=== PATIENT | male | born 1965 | race Caucasian/White ===

== ENCOUNTER 2017-08-29 11:31 | Inpatient (IN) | payer OTHER, MEDICARE, SELFPAY ==
[2017-08-29] VITALS (8 sets, daily range): BP systolic 129–160; BP diastolic 67–90; PULSE 61–92; RESP 15–18; TEMP 36.8–37.4; O2SAT 96–98; BMI 49.1; BMI 49.2
--- NOTE | 2017-08-29 12:19 | RAD_ITS ---
STUDY: X-RAY CHEST REASON FOR EXAM: Male, 52 years old. Chest pain TECHNIQUE: Single AP portable view of the chest. COMPARISON: None. FINDINGS: The lungs are clear and expanded. There is no demonstrated pleural abnormality. Sternal cerclage wires are present from a prior sternotomy. The heart is slightly enlarged. Normal mediastinum and jordon. Normal visualized pulmonary arteries. Normal visualized aortic arch and descending thoracic aorta. Normal visualized thoracic spine. Normal visualized ribs, clavicles, and shoulders. There is no demonstrated abnormality of the visualized soft tissue structures of the upper abdomen. RAD/Chest 1 View (Portable) IMPRESSION: Mild cardiomegaly. Postoperative changes of median sternotomy. No focal consolidation. Electronically Signed: Jakub Manrique DO at 14:03 EDT Tel , Service support ,
--- NOTE | 2017-08-29 12:20 | EKG12_ITS ---
Test Reason : LOWER EXTREMETY PAIN Blood Pressure : / mmHG Vent. Rate : 087 BPM Atrial Rate : 087 BPM P-R Int : 142 ms QRS Dur : 098 ms QT Int : 368 ms P-R-T Axes : 026 080 055 degrees QTc Int : 442 ms Normal sinus rhythm Normal ECG Confirmed by SAMANTA LIMA ([id number]), fan mail editor JUVENTINO RAY ([id number]) on 09/12/2017 5:22:54 PM Referred By: TATYANA Confirmed By:SAMANTA LIMA
--- NOTE | 2017-08-29 12:21 | VDLE_ITS ---
Reason For Study: LEG PAIN AND SWELLING Procedure LEFT Exam performed portable in ED. CFV is compressible, spontaneous, phasic, A preliminary report was called and/or faxed competent, and demonstrates normal to ED nurse. augmentation. FV is compressible, spontaneous, phasic, competent and demonstrates normal augmentation. POP V is compressible, spontaneous, phasic, competent and demonstrates normal augmentation. T/P Trunk is compressible. PTV is compressible. LT PerV is compressible. GSV harvested. Interpretation Summary Deep veins of the left lower extremity are patent and compressible segmentally. There is no evidence of left lower extremity deep vein thrombosis. Valvular competence appears intact within the proximal deep venous system on the left . The left greater saphenous vein is absent, having been previously harvested. Ordering Physician: Abbi Nichols Referring Physician: Betty Farrell Performed By: Fanny Vallejo RVT
--- NOTE | 2017-08-29 12:25 | NURSING ---
NO OLD EKGS
[2017-08-29 13:09] LABS: Absolute Lymphocyte Count 1.17 X10^3/ul (0.83-4.51); Absolute Neutrophil Count 14.5 X10^3/uL (2.0-7.7); Basophil# 0.03 X10^3/uL; Basophil% 0.2 % (0-1); Hematocrit 34.5 % (40-54); Hemoglobin 11.4 g/dl (13.0-16.5); Lymphocyte # 1.17 X10^3/ul (4.0); Lymphocyte % 6.9 % (19-41); Mean Corpuscular Hgb 26.1 pg (27.0-32.0); Mean Corpuscular Volume 78.9 fL (80-94); Monocyte# 0.96 X10^3/uL; Monocyte% 5.7 % (0-10); Neutrophil # 14.49 X10^3/uL (2.7-7.7); Platelet Count 217 K/mm3 (150-450); RBC Distribution Width CV 14.9 % (11.6-14.6); RBC Distribution Width SD 42.4 fl (35.1-43.9); Red Blood Count 4.37 M/mm3 (4.6-6.2); White Blood Count 16.9 K/mm3 (4.4-11.0)
[2017-08-29 13:10] LABS: POSITIVE COUNT NO; POSITIVE DIFFERENTIAL NO; POSITIVE MORPHOLOGY NO
[2017-08-29 13:17] LABS: International Normalized Ratio 1.3; Prothrombin Time (Protime)PT. 15.8 SECONDS (11.7-14.9)
[2017-08-29 13:18] LABS: Partial Thromboplast Time 36.5 Seconds (24.1-36.2)
[2017-08-29 13:33] LABS: Lactic Acid 1.9 mmol/L (0.4-2.0)
[2017-08-29 13:35] LABS: ALB/GLOB Ratio 0.6 RATIO (0.9-2.4); AST(SGOT) 52 U/L (15-37); Alanine Aminotransfer ALT/SGPT 37 U/L (16-61); Albumin, Serum 2.9 g/dL (3.2-5.0); Alkaline Phosphatase 66 U/L (45-117); Anion Gap 13 (5-15); BUN 40 mg/dL (7-18); BUN/Creat Ratio 15.8 RATIO (10-20); Calcium,Total 8.3 mg/dL (8.5-10.1); Chloride 100 mmol/L (98-107); Creatinine, Serum 2.53 mg/dL (0.70-1.30); EST Glomerular Filtration Rate 28 mL/min (>60); Est Glom Filt Rate - Afr Amer 34 mL/min (>60); Estimated Creatinine Clearance 31.21 ml/min; Glucose 203 mg/dL (74-106); Potassium 4.4 mmol/L (3.5-5.1); Protein, Total 7.9 g/dL (6.4-8.2); Sodium Level 128 mmol/L (136-145)
--- NOTE | 2017-08-29 14:23 | NURSING ---
DR TONY FOR DR TYLER
--- NOTE | 2017-08-29 14:39 | NURSING ---
320 SEPSIS SECONDARY TO CELLULITIS PAINTSIL
--- NOTE | 2017-08-29 14:43 | US_ITS ---
STUDY: RENAL ULTRASOUND - COMPLETE REASON FOR EXAM: Male, 52 years old. Acute renal failure TECHNIQUE: Ultrasound evaluation of the kidneys was performed with real-time and static barakat-scale imaging. COMPARISON: None. FINDINGS: RIGHT KIDNEY: Normal location of the right kidney, which is normal in size. The right kidney measures 12.1 x 5.7 x 7.0 cm. There is a normal cortex of the right kidney. The renal cortex measures 2.1 cm. There is no right renal mass or cyst. There is a punctate echogenicity in the right kidney image #7 suggesting possible renal stone. There is a rounded appearing isoechoic masslike structure in the mid pole suggesting probable dromedary hump. This is less are apparent on the left side. There is no right hydronephrosis. DISTAL RIGHT URETER: There is non-visualization of the distal right ureter. There is no demonstrated right ureterovesical junction calculus. There is a visualized right ureteral jet. LEFT KIDNEY: Normal location of the left kidney, which is normal in size. The left kidney measures 11.6 x 5.6 x 6.0 cm. There is a normal cortex of the left kidney. The renal cortex measures 2.2 cm. There is no left renal mass or cyst. There are no left renal calculi. There is no left hydronephrosis. DISTAL LEFT URETER: There is non-visualization of the distal left ureter. There is no demonstrated left ureterovesical junction calculus. There is a visualized left ureteral jet. BLADDER: The distended urinary bladder has a volume of 312.6 ml. There is a normal wall thickness of the distended urinary bladder. There is no demonstrated mass within the urinary bladder. There are no demonstrated bladder calculi. US/Kidney and Bladder IMPRESSION: No evidence of hydronephrosis. Punctate stone right kidney. Probable Dromedary hump versus 3.7 cm isoechoic mass right kidney recommend consideration for follow-up study and/or comparison to a prior study if possible. Electronically Signed: Destini Fisher MD at 23:44 EDT Tel , Service support ,
--- NOTE | 2017-08-29 15:36 | PCM.HP.STD ---
Problem List (1) Cellulitis Status: Acute Qualifiers: Site of cellulitis: extremity Site of cellulitis of extremity: lower extremity Laterality: left Qualified Code(s): L03.116 - Cellulitis of left lower limb (2) Severe sepsis Status: Acute (3) Hyperlipidemia Status: Chronic Qualifiers: Hyperlipidemia type: unspecified Qualified Code(s): E78.5 - Hyperlipidemia, unspecified (4) Benign essential hypertension Status: Chronic (5) Morbid obesity Status: Chronic (6) Lymphedema of left leg Status: Chronic (7) GERD (gastroesophageal reflux disease) Status: Chronic Qualifiers: Esophagitis presence: esophagitis presence not specified Qualified Code(s): K21.9 - Gastro-esophageal reflux disease without esophagitis History of Present Illness Date of Admission: 08/29/17 Chief Complaint: Left lower extremity swelling and redness - 3 days The patient is a 52 year old M with past medical history of type II DM, morbid obesity, chronic leg edema, last admitted in 2016, history of MRSA of groin with a similar presentation of left lower extremity redness and swelling. Patient was in his usual state of health until 3 days ago when he noticed that the left lower extremity was swollen and painful, associated with some redness that seems to be spreading to below the knee. Patient admits to chills and feeling fatigued. Admits to dizziness but no palpitations or chest pain. Denies any fever. Patient is unaware that he has chronic kidney disease in 2016, has not had any hospitalizations since 2016. He states he is a fairly healthy patient. Denied any cuts on his legs or insect bites or bruises. Vitals in the ED show a temperature of 90 9.3F, heart rate of 91, blood pressure 160/90, SPO2 was 98% on room air. Admitting blood pressure RBC count of 16.9, hemoglobin 11.4, platelets of 217, sodium 128, potassium 4.4, chloride 100, bicarbonate 15, anion gap of 13, BUN 40 creatinine is 2.53, previous creatinine was 1.29 in 2016. Past Medical History Past Medical History (Chronic Problems): Chronic Problems Diabetes mellitus out of control (Chronic) Hyperlipidemia (Chronic) Benign essential hypertension (Chronic) Morbid obesity (Chronic) Coronary artery arteriosclerosis (Chronic) Lymphedema of left leg (Chronic) Left leg swelling (Chronic) Prostatism (Chronic) GERD (gastroesophageal reflux disease) (Chronic) Chronic venous insufficiency (Chronic) Edema of left lower extremity (Chronic) Allergies pravastatin sodium [From Pravachol] Adverse Reaction (Intermediate, Verified 08/29/17 11:32) Other ACHY MUSCLES Home Medications: Ambulatory Orders Medication Instructions Recorded Amlodipine [Norvasc] 10 mg PO DAILY 10/16/15 Aspirin [Aspirin, Baby] 81 mg PO DAILY@0800 10/16/15 Atorvastatin Calcium [Lipitor] 40 mg PO DAILY 10/16/15 Lisinopril [Zestril] 40 mg PO DAILY 10/16/15 Metformin HCl [Glucophage] 1,000 mg PO BIDCM 10/16/15 Carvedilol [Coreg] 25 mg PO DAILY 08/29/17 Empagliflozin [Jardiance] 10 mg PO DAILY 08/29/17 Hydrochlorothiazide [Hctz] 25 mg PO DAILY 08/29/17 Insulin Glargine,Hum.rec.anlog 150 unit SQ DAILY 08/29/17 [Toujeo Solostar] Insulin Lispro [Humalog Tyree 50 unit SQ TIDCM 08/29/17 Kwikpen] Meloxicam [Mobic] 15 mg PO DAILY PRN 08/29/17 Omeprazole [Prilosec] 20 mg PO DAILY 08/29/17 Spironolactone [Aldactone] 100 mg PO DAILY 08/29/17 Surgical History: coronary bypass surgery, - - Patient underwent coronary stent placement in 2008. He underwent coronary revascularization in March 2014, at which time 5 coronary bypass grafts were performed. Patient has a history of right groin wound debridement for MRSA. Psychiatric History: No pertinent psych hx Lives: Spouse/ Significant Other Smoking Status: Never smoker Tobacco Use: Non-smoker Alcohol: None Drugs: None - *Family History Maternal History Items: Seizures, - - Brain cancer Paternal History Items: No pertinent history Review of Systems Constitutional: Reports: Anorexia, Chills, Weakness. Denies: Fever, Weight Change Eyes: Denies: Blurred vision, Cataracts, Conjunctivae Inflammation, Pain, Redness HEENT: Denies: Difficulty Hearing, Difficulty Swallowing, Head Aches, Hearing Changes, Sinus Congestion, Sinus Drainage Cardiovascular: Denies: Chest Pain, Claudication, Orthopnea, Palpitations, Paroxysmal Noc. Dyspnea Respiratory: Denies: Cough, Hemoptysis, Pleuritic Pain, Shortness of breath at rest, Shortness of breath upon exertion, Sputum production Gastrointestinal: Denies: Abdominal Pain, Hematemesis, Hematochezia, Nausea, Vomiting Genitourinary: Denies: Dysuria, Frequency, Incontinence Musculoskeletal: Reports: Leg Pain. Denies: Joint Pain, Joint stiffness, Joint swelling, Joint Tenderness Skin: Reports: Skin Changes - redness and swelling of lower extremity with differential warmth. Some chronic tinea pedis changes in between the 4th and 5th toes.. Denies: Wounds Neurological: Denies: Difficulty swallowing, Focal weakness, Numbness, Tingling Psychiatric: Denies: Anxiety, Depression, Homicidal Ideations, Suicidal Ideations Endocrine: Denies: Change in Body Habitus, Heat/ Cold Intolerance Hematologic/ Lymphatic: Denies: Adenopathy, Anemia, Easy Bruising, Easy Bleeding VTE Information - Inpt Only VTE Present on Admission: No VTE Pharm Prophylaxis ordered?: Yes Patient Problems: Active and Suspected Problems Cellulitis (Acute) Severe sepsis (Acute) - Physical Exam General: Alert, Oriented x3, Cooperative, No apparent distress, - - obese HEENT: Atraumatic, PERRLA, EOMI, Normocephalic Oral: Moist Mucosa Neck: Supple Lungs: Clear to auscultation, Normal air movement Cardiovascular: Regular rate, Regular Rhythm, Normal S1, Normal S2, No murmurs Abdomen: Bowel Sounds Present, Soft, Non Tender, Non-Distended, No Hepato-splenomegaly Extremities: No edema Skin: No rashes Musculoskeletal: No Tenderness to Palpation of Joints or Extremities Lymphatic: No Cervical, Supraclavicular, or Inguinal Adenopathy Neurological: Cranial nerves II-XII grossly intact, Neuro grossly intact Psych/Mental Status: Normal Affect, Appropriate Vital Signs Temp Pulse Resp BP Pulse Ox 99.3 F H 61 15 135/77 H 98 08/29/17 11:32 08/29/17 14:36 08/29/17 14:36 08/29/17 14:36 08/29/17 14:36 Assessment/Plan Active and Suspected Problems Cellulitis (Acute) Severe sepsis (Acute) 52 year old M with past medical history of type II DM, morbid obesity, chronic leg edema, last admitted in 2016, history of MRSA of groin with a similar presentation of left lower extremity redness and swelling. 1.Severe sepsis secondary to left lower extremity cellulitis (HR>90, WBC 16.9, evidence of TALITA), in a known diabetic, History of MRSA, morbidly obese patient with history of chronic venous insufficiency. DVT ruled out with a Doppler ultrasound in the ED. Plan: Admit to Medsurg floor, IV antibiotics -Cipro and Flagyl, IV fluids, repeat CBCD, pharmacy to help dose and monitor vancomycin, ID consult 2. TALITA on CKD stage 3, Admitting Cr is 2.53, previous Cr 1.29, will start on IV fluids, renal ultrasound, urine sodium, urine creatinine, nephrology consult, would hold metformin, spironolactone, lisinopril, hydrochlorothiazide and OxyContin. 3. Hyponatremia, likely related to #2, repeat BMP in am 4. Non-gap metabolic acidosis, likely secondary to #2, continue with IV fluids, labs in a.m. 5. Type II DM, insulin, continue home medications, hold metformin, Jardiance and continue with insulin with Accu-Cheks and low dose insulin sliding scale. 6. Hypertension, fairly uncontrolled in the ED, secondary to pain, subsequent blood pressure readings are controlled, to new on amlodipine, carvedilol. Lisinopril, Aldactone, hydrochlorothiazide on hold. Will Add hydralazine as needed for systolic blood pressure more than 160 7. CAD s/p CABG, stable, on aspirin, statin, beta-william, lisinopril, Aldactone 8. DVT prophylaxis with heparin subcu Code Visit Inpatient E&M: 64161 Init Hosp L3
[2017-08-29] MEDS: 0.9% Normal Saline 1,000 ML 100 ML IV (15:54)
--- NOTE | 2017-08-29 15:59 | ED.VISSUMM ---
- ER Visit Summary Date of Service: 08/29/17 Chief Complaint: Left leg pain and swelling History of Present Illness: The patient is a 52 M who presents for 3 days of pain and swelling to the left lower leg. It is gradually worsened. Patient has associated sweats but no measured fever. He has malaise, fatigue and feels thirsty. He has a history of prior cellulitis that required hospitalization and IV antibiotics with ID consult. 3 of diabetes, hypertension, coronary artery disease, history of chronic dyspnea. Denies CHF or COPD history. No renal disease. Is not on any blood thinners. Physical Examination: Vital signs: afebrile, hemodynamically stable, no hypoxia on room air General: well nourished, well developed, in no distress Skin: warm, dry, no pallor, erythema and warmth distal to the left knee on the entire lower leg radiating into the foot HEENT: normocephalic and atraumatic; PERRL, EOMI, moist mucous membranes Cardiovascular: regular rate and rhythm without murmurs, no peripheral edema, 2+ pulses all distal extremities Respiratory: No increased work of breathing, lungs are clear to auscultation bilaterally, no rales, rhonchi or wheezing Abdominal: Abdomen is soft, nontender with normoactive bowel sounds, no guarding or rebound, no masses MSK: Moves all extremities, no deformities, normal strength Neuro: Awake and alert, oriented ?4. No facial droop, sensation and motor function intact and symmetric Test Results: Abnormal Lab Results 08/29/17 08/29/17 08/29/17 13:00 13:00 13:00 WBC 16.9 H RBC 4.37 L Hgb 11.4 L Hct 34.5 L MCV 78.9 L MCH 26.1 L MCHC 33.0 RDW 14.9 H RDW Differential 42.4 Plt Count 217 MPV 10.0 Immature Gran % (Auto) 1.200 H Neut % (Auto) 86.0 H Lymph % (Auto) 6.9 L [place] % (Auto) 5.7 Eos % (Auto) 0.0 Baso % (Auto) 0.2 Absolute Neuts (auto) 14.5 H Absolute Lymphs (auto) 1.17 Total Counted Not Reportable PT 15.8 H INR 1.3 APTT 36.5 H Sodium 128 L Potassium 4.4 Chloride 100 Carbon Dioxide 15.0 L Anion Gap 13 BUN 40 H Creatinine 2.53 H Estim Creat Clear Calc 31.21 Est GFR (MDRD) Af Amer 34 L Est GFR (MDRD) Non-Af 28 L BUN/Creatinine Ratio 15.8 Glucose 203 H Lactic Acid Calcium 8.3 L Total Bilirubin 0.50 AST 52 H ALT 37 Alkaline Phosphatase 66 Troponin I < 0.015 B-Natriuretic Peptide Total Protein 7.9 Albumin 2.9 L Globulin 5.0 H Albumin/Globulin Ratio 0.6 L 08/29/17 08/29/17 13:00 13:00 WBC RBC Hgb Hct MCV MCH MCHC RDW RDW Differential Plt Count MPV Immature Gran % (Auto) Neut % (Auto) Lymph % (Auto) [place] % (Auto) Eos % (Auto) Baso % (Auto) Absolute Neuts (auto) Absolute Lymphs (auto) Total Counted PT INR APTT Sodium Potassium Chloride Carbon Dioxide Anion Gap BUN Creatinine Estim Creat Clear Calc Est GFR (MDRD) Af Amer Est GFR (MDRD) Non-Af BUN/Creatinine Ratio Glucose Lactic Acid 1.9 Calcium Total Bilirubin AST ALT Alkaline Phosphatase Troponin I B-Natriuretic Peptide 73.0 Total Protein Albumin Globulin Albumin/Globulin Ratio Clinical Impression(s) from Imaging Studies Chest X-Ray 08/29/17 12:19 IMPRESSION: Mild cardiomegaly. Postoperative changes of median sternotomy. No focal consolidation. Electronically Signed: Jakub Manrique DO at 14:03 EDT Tel , Service support , Emergency Department Course and Treatment: Patient presents with concerning exam for cellulitis below the knee of the left leg. Patient has exquisite tenderness with erythema, swelling and warmth. Ultrasound performed to rule out DVT. Given patient's significant cardiac history and his worsening dyspnea for the last 2 weeks, EKG and chest x-ray were also performed. EKG showed sinus rhythm without ischemia or ectopy. Chest x-ray showed no pulmonary edema. Labs showed leukocytosis of 16.9. BMP remarkable for mild hyponatremia at 128, and chart review shows patient normally has a low sodium but not to this extent. Elevated creatinine at his baseline. Hyperglycemic at 203. Troponin negative. Lactate within normal limits at 1.9. Given patient's multiple medical comorbidities and cellulitis of the entire left lower leg, and given history of complicated cellulitis in the past, patient would benefit from admission for IV antibiotics. Was started on vancomycin. He was discussed with the hospitalist and admitted for further management. Treatment Plan: [] Disposition: [] Impression: Lower leg cellulitis, chronic renal disease, hyponatremia This note was generated with [employer] dictation software. It may contain incorrect words, spelling, and punctuation that were not noted in review of the chart prior to signing ED Disposition - Plan for ED Patient: Disposition: Acute Care Hospital [facility] Chief Complaint: Lower Extremity Injury
--- NOTE | 2017-08-29 16:03 | ED.DCSUM_ITS ---
- ER Visit Summary Date of Service: 08/29/17 Chief Complaint: Left leg pain and swelling History of Present Illness: The patient is a 52 M who presents for 3 days of pain and swelling to the left lower leg. It is gradually worsened. Patient has associated sweats but no measured fever. He has malaise, fatigue and feels thirsty. He has a history of prior cellulitis that required hospitalization and IV antibiotics with ID consult. 3 of diabetes, hypertension, coronary artery disease, history of chronic dyspnea. Denies CHF or COPD history. No renal disease. Is not on any blood thinners. Physical Examination: Vital signs: afebrile, hemodynamically stable, no hypoxia on room air General: well nourished, well developed, in no distress Skin: warm, dry, no pallor, erythema and warmth distal to the left knee on the entire lower leg radiating into the foot HEENT: normocephalic and atraumatic; PERRL, EOMI, moist mucous membranes Cardiovascular: regular rate and rhythm without murmurs, no peripheral edema, 2 + pulses all distal extremities Respiratory: No increased work of breathing, lungs are clear to auscultation bilaterally, no rales, rhonchi or wheezing Abdominal: Abdomen is soft, nontender with normoactive bowel sounds, no guarding or rebound, no masses MSK: Moves all extremities, no deformities, normal strength Neuro: Awake and alert, oriented ?4. No facial droop, sensation and motor function intact and symmetric Test Results: Abnormal Lab Results 08/29/17 08/29/17 08/29/17 13:00 13:00 13:00 WBC 16.9 H RBC 4.37 L Hgb 11.4 L Hct 34.5 L MCV 78.9 L MCH 26.1 L MCHC 33.0 RDW 14.9 H RDW Differential 42.4 Plt Count 217 MPV 10.0 Immature Gran % (Auto) 1.200 H Neut % (Auto) 86.0 H Lymph % (Auto) 6.9 L [place] % (Auto) 5.7 Eos % (Auto) 0.0 Baso % (Auto) 0.2 Absolute Neuts (auto) 14.5 H Absolute Lymphs (auto) 1.17 Total Counted Not Reportable PT 15.8 H INR 1.3 APTT 36.5 H Sodium 128 L Potassium 4.4 Chloride 100 Carbon Dioxide 15.0 L Anion Gap 13 BUN 40 H Creatinine 2.53 H Estim Creat Clear Calc 31.21 Est GFR (MDRD) Af Amer 34 L Est GFR (MDRD) Non-Af 28 L BUN/Creatinine Ratio 15.8 Glucose 203 H Lactic Acid Calcium 8.3 L Total Bilirubin 0.50 AST 52 H ALT 37 Alkaline Phosphatase 66 Troponin I < 0.015 B-Natriuretic Peptide Total Protein 7.9 Albumin 2.9 L Globulin 5.0 H Albumin/Globulin Ratio 0.6 L 08/29/17 08/29/17 13:00 13:00 WBC RBC Hgb Hct MCV MCH MCHC RDW RDW Differential Plt Count MPV Immature Gran % (Auto) Neut % (Auto) Lymph % (Auto) [place] % (Auto) Eos % (Auto) Baso % (Auto) Absolute Neuts (auto) Absolute Lymphs (auto) Total Counted PT INR APTT Sodium Potassium Chloride Carbon Dioxide Anion Gap BUN Creatinine Estim Creat Clear Calc Est GFR (MDRD) Af Amer Est GFR (MDRD) Non-Af BUN/Creatinine Ratio Glucose Lactic Acid 1.9 Calcium Total Bilirubin AST ALT Alkaline Phosphatase Troponin I B-Natriuretic Peptide 73.0 Total Protein Albumin Globulin Albumin/Globulin Ratio Clinical Impression(s) from Imaging Studies Chest X-Ray 08/29/17 12:19 IMPRESSION: Mild cardiomegaly. Postoperative changes of median sternotomy. No focal consolidation. Electronically Signed: Jakub Manrique DO at 14:03 EDT Tel , Service support , Emergency Department Course and Treatment: Patient presents with concerning exam for cellulitis below the knee of the left leg. Patient has exquisite tenderness with erythema, swelling and warmth. Ultrasound performed to rule out DVT. Given patient's significant cardiac history and his worsening dyspnea for the last 2 weeks, EKG and chest x-ray were also performed. EKG showed sinus rhythm without ischemia or ectopy. Chest x-ray showed no pulmonary edema. Labs showed leukocytosis of 16.9. BMP remarkable for mild hyponatremia at 128, and chart review shows patient normally has a low sodium but not to this extent. Elevated creatinine at his baseline. Hyperglycemic at 203. Troponin negative. Lactate within normal limits at 1.9. Given patient's multiple medical comorbidities and cellulitis of the entire left lower leg, and given history of complicated cellulitis in the past, patient would benefit from admission for IV antibiotics. Was started on vancomycin. He was discussed with the hospitalist and admitted for further management. Treatment Plan: [] Disposition: [] Impression: Lower leg cellulitis, chronic renal disease, hyponatremia This note was generated with [employer] dictation software. It may contain incorrect words, spelling, and punctuation that were not noted in review of the chart prior to signing ED Disposition - Plan for ED Patient: Disposition: Acute Care Hospital [facility] Chief Complaint: Lower Extremity Injury
[2017-08-29] MEDS: oxyCODONE 5 MG Tablet PO ×2 (16:15→20:22)
[2017-08-29 16:25] LABS: Bedside Glucose 189 mg/dL (70-110)
--- NOTE | 2017-08-29 19:13 | PCM.RX.CS ---
Consult Pharmacy has been consulted to manage selected antiobiotic: Vancomycin Type of Consult: New start Suspected Infection: Sepsis, Skin/Soft tissue Prior Doses of Antibiotics Received/Current Regimen: Vancomycin 2000mg x1 in ER Labs: Sodium 128 mmol/L (136-145) L 08/29/17 13:00 Potassium 4.4 mmol/L (3.5-5.1) 08/29/17 13:00 Chloride 100 mmol/L (98-107) 08/29/17 13:00 Carbon Dioxide 15.0 mmol/L (21.0-32.0) L 08/29/17 13:00 Anion Gap 13 (5-15) 08/29/17 13:00 BUN 40 mg/dL (7-18) H 08/29/17 13:00 Creatinine 2.53 mg/dL (0.70-1.30) H 08/29/17 13:00 Est GFR (MDRD) Af Amer 34 mL/min (>60) L 08/29/17 13:00 Est GFR (MDRD) Non-Af 28 mL/min (>60) L 08/29/17 13:00 BUN/Creatinine Ratio 15.8 RATIO (10-20) 08/29/17 13:00 Glucose 203 mg/dL (74-106) H 08/29/17 13:00 Microbiology: n/a Weight used for dosin kg Estimated Creatinine Clearance: 31ml/min Goal Trough: 10-15 mcg/mL Pharmacy Plan for Drug Dosing: Start Vancomycin 1250mg every 24 hours on 08/30/17 at 1500. Will draw trough before 3rd total dose. Pharmacy Service will continue to monitor and adjust dosing as required. Follow-Up Labs: Trough Vancomycin - 08/31/17 @ 1430 Labs to be done on [date and time ordered]: trough level on 08/31/17 at 1430
[2017-08-29] MEDS: Acetaminophen 325 MG Tablet 650 MG PO (20:22)
--- NOTE | 2017-08-29 20:26 | NURSING ---
This RN offered if patient wanted to take a shower, patient stated maybe in the morning.
[2017-08-29 20:27] LABS: Bacteria 0 SEEN /hpf (None Seen); Mucous, Urine 0 SEEN /hpf (<or=2+); Squamous Epithelial Cells - UA 0 SEEN /hpf (0-5)
[2017-08-29 20:42] LABS: Color, Urine Yellow (Yellow); Glucose, Dipstick 1000 mg/dl (Normal); Ketone-Dipstick 5 mg/dl (Negative); Leukocyte Esterase-Dipstick Negative /ul (Negative); Nitrite-Dipstick Negative (Negative); Occult Blood-Urine 150 /ul (Negative); Protein-Dipstick 500 mg/dl (Negative); Specific Gravity, Urine 1.015 (1.002-1.030); Urine Bilirubin Dipstick Negative (Negative); Urine Clarity Clear (Clear); Urine Urobilinogen Normal (Normal)
[2017-08-29 20:50] LABS: Red Blood Cells-Urine 0-5 SEEN /hpf (0-5); White Blood Cells 0-5 SEEN /hpf (0-5)
[2017-08-29 20:51] LABS: Urine Sodium 46 mmol/L (Not Establ.)
[2017-08-29 21:18] LABS: Probe Check PASS
[2017-08-29 21:19] LABS: M R Staph aureus DNA By PCR POSITIVE (Negative)
[2017-08-29] MEDS: Heparin Injection (Vial) 5,000 UNIT/ML VIAL 5000 UNIT SC (22:18)
[2017-08-29] MEDS: Piperacil/Tazobactam 3.375 GM/50 ML ML IV (22:18)
[2017-08-29] MEDS: Carvedilol 25 MG Tablet PO (22:19)
[2017-08-29] MEDS: Insulin Lispro 100 UNIT/ML INSULN.PEN SQ (22:20)
[2017-08-29 22:31] LABS: Bedside Glucose 178 mg/dL (70-110)
[2017-08-30] VITALS (11 sets, daily range): BP systolic 101–150; BP diastolic 52–81; PULSE 64–75; RESP 16–18; TEMP 36.8–37.6; O2SAT 96–100
[2017-08-30] MEDS: 0.9% Normal Saline 1,000 ML 100 ML IV ×2 (03:36→14:12)
[2017-08-30] MEDS: Piperacil/Tazobactam 3.375 GM/50 ML ML IV (05:31)
[2017-08-30 06:12] LABS: Absolute Lymphocyte Count 0.86 X10^3/ul (0.83-4.51); Absolute Neutrophil Count 10.1 X10^3/uL (2.0-7.7); Basophil# 0.02 X10^3/uL; Basophil% 0.2 % (0-1); Eosinophil# 0.07 X10^3/uL; Eosinophils% 0.6 % (0-5); Hematocrit 32.1 % (40-54); Hemoglobin 10.5 g/dl (13.0-16.5); Lymphocyte # 0.86 X10^3/ul (4.0); Lymphocyte % 7.2 % (19-41); Mean Corp Hgb Conc 32.7 g/gl (32-36); Mean Corpuscular Hgb 26.1 pg (27.0-32.0); Mean Corpuscular Volume 79.9 fL (80-94); Mean Platelet Vol. 10.5 fl (6.2-12.0); Monocyte# 0.77 X10^3/uL; Monocyte% 6.5 % (0-10); Neutrophil # 10.11 X10^3/uL (2.7-7.7); Neutrophil % 85.2 % (47-70); Platelet Count 191 K/mm3 (150-450); RBC Distribution Width CV 14.9 % (11.6-14.6); RBC Distribution Width SD 43.1 fl (35.1-43.9); Red Blood Count 4.02 M/mm3 (4.6-6.2); White Blood Count 11.9 K/mm3 (4.4-11.0)
[2017-08-30 06:14] LABS: POSITIVE COUNT NO; POSITIVE DIFFERENTIAL NO; POSITIVE MORPHOLOGY NO
[2017-08-30 06:39] LABS: Anion Gap 13 (5-15); BUN 47 mg/dL (7-18); BUN/Creat Ratio 18.4 RATIO (10-20); Calcium,Total 8.4 mg/dL (8.5-10.1); Chloride 104 mmol/L (98-107); Creatinine, Serum 2.56 mg/dL (0.70-1.30); EST Glomerular Filtration Rate 28 mL/min (>60); Est Glom Filt Rate - Afr Amer 34 mL/min (>60); Estimated Creatinine Clearance 30.84 ml/min; Glucose 221 mg/dL (74-106); Potassium 4.7 mmol/L (3.5-5.1); Sodium Level 132 mmol/L (136-145)
--- NOTE | 2017-08-30 08:05 | PCM.CONS.R ---
Consultation - Renal 08/30/17 PCP/ Referring MD: Requesting physician: Dr Guerrier Primary care physician: Betty Farrell Reason for Consultation:: TALITA - History of Present Illness History of Present Illness: The patient is a 52 year old obese M with past medical history for type II DM, HTN, HPL, MELODIE, noncompliance with CPAP and diabetes with elevated A1C of 10.8 on 05/30/17 admitted for left lower extremity redness and swelling for 3 days. He complains of chills, fatigue. He noticed left leg redness while camping out on Tuesday progressively worse by Tuesday. States was wearing shorts. Denied going barefoot. Denies palpitations or chest pain. Denied any injury to his leg or insect bites or bruises. Hx left lower extremity cellulitis in the past with MRSA. He denied history of DVT. He has CAD status post CABG 4 years ago with veins harvested from his left leg. Creatinine in October 2015 was 1.29 in hospital records. Creatinine from [facility] records was 1.48 on 05/30/17 and February 2017, 1.2 in September 2016. Creatinine on admit was 2.53. He is on prinivil, aldactone, Jardiance and Glucophage along with insulin at home. He has a history of NSAID use with Meloxicam and ibuprofen for back pain and leg pain but not on a regular basis. Denied any urinary complaints. States sugars are in the mid 200s in the morning which is good for him according to the patient. - Allergies Allergies: Allergies pravastatin sodium [From Pravachol] Adverse Reaction (Intermediate, Verified 08/29/17 11:32) Other ACHY MUSCLES - Current Medications Current Medications: Current Medications Acetaminophen (Tylenol) 650 mg PO Q6H PRN PRN PRN Reason: Mild Pain (scale 0-3)/T>100.7 Last Admin: 08/29/17 20:22 Dose: 650 mg Amlodipine Besylate (Norvasc) 10 mg PO DAILY [facility] Aspirin (Aspirin, Baby) 81 mg PO DAILY@0800 [facility] Atorvastatin Calcium (Lipitor) 40 mg PO DAILY [facility] Bisacodyl (Dulcolax) 5 mg PO DAILY PRN PRN PRN Reason: Constipation Carvedilol (Coreg) 25 mg PO BID [facility] Last Admin: 08/29/17 22:19 Dose: 25 mg Dextrose (D50w Syringe) 0 gm IV X1 PRN; Protocol PRN Reason: Hypoglycemia Glucagon () 1 mg IM .X1 PRN PRN Reason: Hypoglycemia Heparin Sodium (Porcine) (Heparin Na) 5,000 unit SC Q12 [facility] Last Admin: 08/29/17 22:18 Dose: 5,000 u Hydralazine HCl (Apresoline Iv) 5 mg IV Q6H PRN PRN PRN Reason: BLOOD PRESSURE Sodium Chloride () 1,000 mls @ 100 mls/hr IV .Q10H [facility] Last Admin: 08/30/17 03:36 Dose: 100 mls/hr Piperacillin Sod/Tazobactam Sod (Zosyn) 3.375 gm in 50 mls @ 12.5 mls/hr IV Q8 [facility] Last Admin: 08/30/17 05:31 Dose: 12.5 mls/hr Vancomycin HCl 1,250 mg/ (Sodium Chloride) 275 mls @ 183.333 mls/hr IV Q24H [facility] Insulin Detemir (Levemir (Bkc)) 150 units SC DAILY [facility] Insulin Human Lispro (Humalog Kwikpen (Bkc)) 50 unit SC TIDCM [facility] Last Admin: 08/29/17 18:42 Dose: Not Given Insulin Human Lispro (Humalog Kwikpen (Bkc)) 0 unit SQ ACHS [facility] PRN Reason: Protocol Last Admin: 08/29/17 22:20 Dose: 1 u Magnesium Hydroxide (Milk Of Magnesia) 30 ml PO DAILY PRN PRN PRN Reason: Constipation Morphine Sulfate () 1 - 2 mg IV Q4H PRN PRN PRN Reason: Moderate Pain (pain scale 4-5) Ondansetron HCl (Zofran) 4 mg IV Q8H PRN PRN PRN Reason: Nausea Oxycodone HCl (Oxyir) 5 mg PO Q4H PRN PRN PRN Reason: Moderate Pain (pain scale 4-5) Last Admin: 08/29/17 20:22 Dose: 5 mg Pantoprazole Sodium (Protonix) 20 mg PO DAILY [facility] Psyllium Hydrophilic Mucilloid (Metamucil) 1 packet PO DAILY PRN PRN PRN Reason: CONSTIPATION Sodium Chloride () 5 - 30 ml IV UD PRN PRN Reason: SALINE FLUSH - Past Medical History Past Medical History (Chronic Problems): Chronic Problems Diabetes mellitus out of control (Chronic) Hyperlipidemia (Chronic) Benign essential hypertension (Chronic) Morbid obesity (Chronic) Coronary artery arteriosclerosis (Chronic) Lymphedema of left leg (Chronic) Left leg swelling (Chronic) Prostatism (Chronic) GERD (gastroesophageal reflux disease) (Chronic) Chronic venous insufficiency (Chronic) Edema of left lower extremity (Chronic) - Past Surgical History Surgical History: coronary bypass surgery, - - Patient underwent coronary stent placement in 2008. He underwent coronary revascularization in March 2014, at which time 5 coronary bypass grafts were performed. Patient has a history of right groin wound debridement for MRSA. - Social History Smoking Status: Never smoker Alcohol: None Drugs: None - Family History Paternal History Items: Hypertension Maternal History Items: Cancer - brain, Seizures Review of Systems Constitutional: Reports: Chills, Weakness. Denies: Anorexia, Fever Eyes: Denies: Blurred vision HEENT: Denies: Head Aches Cardiovascular: Reports: Edema - Redness and swelling in the left lower extremity. Denies: Chest Pain Patient Problems: Active and Suspected Problems Cellulitis (Acute) Severe sepsis (Acute) - Physical Exam General: Alert, Oriented x3, Cooperative, No apparent distress HEENT: PERRLA, EOMI Oral: Moist Mucosa Neck: Supple Lungs: Clear to auscultation Cardiovascular: Regular rate Abdomen: Bowel Sounds Present, Soft, Non Tender, Non-Distended, Obese Extremities: Edema - F lower extremity Skin: Rash Present - Erythema left lower extremity with tenderness to light touch Musculoskeletal: No Muscle Wasting Neurological: Cranial nerves II-XII grossly intact Psych/Mental Status: Normal Affect, Alert and oriented to time, place, person, mood and affect Vital Signs Temp Pulse Resp BP Pulse Ox 98.2 F 72 18 131/64 H 100 08/30/17 03:43 08/30/17 08:04 08/30/17 03:43 08/30/17 03:43 08/30/17 03:43 Oxygen Delivery Method Room Air Weight: 142.4 kg Body Mass Index (BMI) 49.1 Intake and Output for Last 24 Hours 08/28/17 08/29/17 08/30/17 23:59 23:59 23:59 Intake Total 1097 / 1097 1185 / 1185 Balance 1097 / 1097 1185 / 1185 Laboratory Tests Past 24 Hrs 08/29/17 08/29/1718 19:30 20:21 20:21 WBC RBC Hgb Hct MCV MCH MCHC RDW RDW Differential Plt Count MPV Immature Gran % (Auto) Neut % (Auto) Lymph % (Auto) Rains % (Auto) Eos % (Auto) Baso % (Auto) Absolute Neuts (auto) Absolute Lymphs (auto) Total Counted Sodium Potassium Chloride Carbon Dioxide Anion Gap BUN Creatinine Estim Creat Clear Calc Est GFR (MDRD) Af Amer Est GFR (MDRD) Non-Af BUN/Creatinine Ratio Glucose Calcium Urine Color Yellow Urine Clarity Clear Urine pH 6.0 Ur Specific [place] 1.015 Urine Protein 500 H Urine Glucose (UA) 1000 H Urine Ketones 5 H Urine Occult Blood 150 H Urine Nitrite Negative Urine Bilirubin Negative Urine Urobilinogen Normal Ur Leukocyte Esterase Negative Urine RBC 0-5 SEEN Urine WBC 0-5 SEEN Ur Squamous Epith Cells 0 SEEN Urine Bacteria 0 SEEN Urine Mucus 0 SEEN Ur Random Sodium Urine Creatinine 147.00 MRSA (PCR) POSITIVE H 08/29/17 08/30/17 08/30/17 20:21 05:48 05:48 WBC 11.9 H RBC 4.02 L Hgb 10.5 L Hct 32.1 L MCV 79.9 L MCH 26.1 L MCHC 32.7 RDW 14.9 H RDW Differential 43.1 Plt Count 191 MPV 10.5 Immature Gran % (Auto) 0.300 Neut % (Auto) 85.2 H Lymph % (Auto) 7.2 L Rains % (Auto) 6.5 Eos % (Auto) 0.6 Baso % (Auto) 0.2 Absolute Neuts (auto) 10.1 H Absolute Lymphs (auto) 0.86 Total Counted Not Reportable Sodium 132 L Potassium 4.7 Chloride 104 Carbon Dioxide 15.0 L Anion Gap 13 BUN 47 H Creatinine 2.56 H Estim Creat Clear Calc 30.84 Est GFR (MDRD) Af Amer 34 L Est GFR (MDRD) Non-Af 28 L BUN/Creatinine Ratio 18.4 Glucose 221 H Calcium 8.4 L Urine Color Urine Clarity Urine pH Ur Specific [place] Urine Protein Urine Glucose (UA) Urine Ketones Urine Occult Blood Urine Nitrite Urine Bilirubin Urine Urobilinogen Ur Leukocyte Esterase Urine RBC Urine WBC Ur Squamous Epith Cells Urine Bacteria Urine Mucus Ur Random Sodium 46 Urine Creatinine MRSA (PCR) POC Glucose 08/29/17 08/29/17 22:09 16:20 POC Glucose 178 H 189 H Clinical Impression(s) from Imaging Studies Chest X-Ray 08/29/17 12:19 IMPRESSION: Mild cardiomegaly. Postoperative changes of median sternotomy. No focal consolidation. Electronically Signed: Jakub Manrique DO at 14:03 EDT Tel , Service support , Renal Ultrasound 08/29/17 14:43 IMPRESSION: No evidence of hydronephrosis. Punctate stone right kidney. Probable Dromedary hump versus 3.7 cm isoechoic mass right kidney recommend consideration for follow-up study and/or comparison to a prior study if possible. Electronically Signed: Destini Fisher MD at 23:44 EDT Tel , Service support , Assessment/Plan Active and Suspected Problems Cellulitis (Acute) Severe sepsis (Acute) 1. Acute on chronic kidney disease stage II likely related to medication and cellulitis. Discontinue aldactone, GEENA inhibitor, avoid nephrotoxins. Avoid NSAID use. Creatinine appears to be at 1.2-1.4 with underlying diabetic kidney disease. Serum creatinine 1.2 in September 2016. Renal US with dromedary hump. follow up with repeat US in 6 months. 2. Acute cellulitis left lower extremity continue IV antibiotic therapy. Monitor vancomycin levels while on antibiotic therapy. 3. Diabetes mellitus type 2 with poor diabetic control. Discontinue metformin and Giardia is due to his acute renal failure. Hemoglobin A1c 10.8 from 05/30/17 with Urine microalbumin to creatinine ratio 1727 mg/gram creatinine. 4. hypertention with stable blood pressure 5. CAD status post CABG 6. Morbid obesity 7. MELODIE noncompliant with CPAP. 8. Metabolic acidosis suspect due to renal failure, metformin, poor sugar control.
--- NOTE | 2017-08-30 08:09 | CON.PCM_ITS ---
Consultation - Renal 08/30/17 PCP/ Referring MD: Requesting physician: Dr Guerrier Primary care physician: Betty Farrell Reason for Consultation:: TALITA - History of Present Illness History of Present Illness: The patient is a 52 year old obese M with past medical history for type II DM, HTN, HPL, MELODIE, noncompliance with CPAP and diabetes with elevated A1C of 10.8 on 05/30/17 admitted for left lower extremity redness and swelling for 3 days. He complains of chills, fatigue. He noticed left leg redness while camping out on Tuesday progressively worse by Tuesday. States was wearing shorts. Denied going barefoot. Denies palpitations or chest pain. Denied any injury to his leg or insect bites or bruises. Hx left lower extremity cellulitis in the past with MRSA. He denied history of DVT. He has CAD status post CABG 4 years ago with veins harvested from his left leg. Creatinine in October 2015 was 1.29 in hospital records. Creatinine from [facility] records was 1.48 on 05/30/17 and February 2017, 1.2 in September 2016. Creatinine on admit was 2.53. He is on prinivil, aldactone, Jardiance and Glucophage along with insulin at home. He has a history of NSAID use with Meloxicam and ibuprofen for back pain and leg pain but not on a regular basis. Denied any urinary complaints. States sugars are in the mid 200s in the morning which is good for him according to the patient. - Allergies Allergies: Allergies pravastatin sodium [From Pravachol] Adverse Reaction (Intermediate, Verified 11:32) Other ACHY MUSCLES - Current Medications Current Medications: Current Medications Acetaminophen (Tylenol) 650 mg PO Q6H PRN PRN PRN Reason: Mild Pain (scale 0-3)/T>100.7 Last Admin: 08/29/17 20:22 Dose: 650 mg Amlodipine Besylate (Norvasc) 10 mg PO DAILY [facility] Aspirin (Aspirin, Baby) 81 mg PO DAILY@0800 [facility] Atorvastatin Calcium (Lipitor) 40 mg PO DAILY [facility] Bisacodyl (Dulcolax) 5 mg PO DAILY PRN PRN PRN Reason: Constipation Carvedilol (Coreg) 25 mg PO BID [facility] Last Admin: 08/29/17 22:19 Dose: 25 mg Dextrose (D50w Syringe) 0 gm IV X1 PRN; Protocol PRN Reason: Hypoglycemia Glucagon () 1 mg IM .X1 PRN PRN Reason: Hypoglycemia Heparin Sodium (Porcine) (Heparin Na) 5,000 unit SC Q12 [facility] Last Admin: 08/29/17 22:18 Dose: 5,000 u Hydralazine HCl (Apresoline Iv) 5 mg IV Q6H PRN PRN PRN Reason: BLOOD PRESSURE Sodium Chloride () 1,000 mls @ 100 mls/hr IV .Q10H [facility] Last Admin: 08/30/17 03:36 Dose: 100 mls/hr Piperacillin Sod/Tazobactam Sod (Zosyn) 3.375 gm in 50 mls @ 12.5 mls/hr IV Q8 [facility] Last Admin: 08/30/17 05:31 Dose: 12.5 mls/hr Vancomycin HCl 1,250 mg/ (Sodium Chloride) 275 mls @ 183.333 mls/hr IV Q24H [facility] Insulin Detemir (Levemir (Bkc)) 150 units SC DAILY [facility] Insulin Human Lispro (Humalog Kwikpen (Bkc)) 50 unit SC TIDCM [facility] Last Admin: 08/29/17 18:42 Dose: Not Given Insulin Human Lispro (Humalog Kwikpen (Bkc)) 0 unit SQ ACHS [facility] PRN Reason: Protocol Last Admin: 08/29/17 22:20 Dose: 1 u Magnesium Hydroxide (Milk Of Magnesia) 30 ml PO DAILY PRN PRN PRN Reason: Constipation Morphine Sulfate () 1 - 2 mg IV Q4H PRN PRN PRN Reason: Moderate Pain (pain scale 4-5) Ondansetron HCl (Zofran) 4 mg IV Q8H PRN PRN PRN Reason: Nausea Oxycodone HCl (Oxyir) 5 mg PO Q4H PRN PRN PRN Reason: Moderate Pain (pain scale 4-5) Last Admin: 08/29/17 20:22 Dose: 5 mg Pantoprazole Sodium (Protonix) 20 mg PO DAILY [facility] Psyllium Hydrophilic Mucilloid (Metamucil) 1 packet PO DAILY PRN PRN PRN Reason: CONSTIPATION Sodium Chloride () 5 - 30 ml IV UD PRN PRN Reason: SALINE FLUSH - Past Medical History Past Medical History (Chronic Problems): Chronic Problems Diabetes mellitus out of control (Chronic) Hyperlipidemia (Chronic) Benign essential hypertension (Chronic) Morbid obesity (Chronic) Coronary artery arteriosclerosis (Chronic) Lymphedema of left leg (Chronic) Left leg swelling (Chronic) Prostatism (Chronic) GERD (gastroesophageal reflux disease) (Chronic) Chronic venous insufficiency (Chronic) Edema of left lower extremity (Chronic) - Past Surgical History Surgical History: coronary bypass surgery, - - Patient underwent coronary stent placement in 2008. He underwent coronary revascularization in March 2014, at which time 5 coronary bypass grafts were performed. Patient has a history of right groin wound debridement for MRSA. - Social History Smoking Status: Never smoker Alcohol: None Drugs: None - Family History Paternal History Items: Hypertension Maternal History Items: Cancer - brain, Seizures Review of Systems Constitutional: Reports: Chills, Weakness. Denies: Anorexia, Fever Eyes: Denies: Blurred vision HEENT: Denies: Head Aches Cardiovascular: Reports: Edema - Redness and swelling in the left lower extremity. Denies: Chest Pain Patient Problems: Active and Suspected Problems Cellulitis (Acute) Severe sepsis (Acute) - Physical Exam General: Alert, Oriented x3, Cooperative, No apparent distress HEENT: PERRLA, EOMI Oral: Moist Mucosa Neck: Supple Lungs: Clear to auscultation Cardiovascular: Regular rate Abdomen: Bowel Sounds Present, Soft, Non Tender, Non-Distended, Obese Extremities: Edema - F lower extremity Skin: Rash Present - Erythema left lower extremity with tenderness to light touch Musculoskeletal: No Muscle Wasting Neurological: Cranial nerves II-XII grossly intact Psych/Mental Status: Normal Affect, Alert and oriented to time, place, person, mood and affect Vital Signs Temp Pulse Resp BP Pulse Ox 98.2 F 72 18 131/64 H 100 08/30/17 03:43 08/30/17 08:04 08/30/17 03:43 08/30/17 03:43 08/30/17 03:43 Oxygen Delivery Method Room Air Weight: 142.4 kg Body Mass Index (BMI) 49.1 Intake and Output for Last 24 Hours 08/28/17 08/29/17 08/30/17 23:59 23:59 23:59 Intake Total 1097 / 1097 1185 / 1185 Balance 1097 / 1097 1185 / 1185 Laboratory Tests Past 24 Hrs 08/29/17 08/29/1718 19:30 20:21 20:21 WBC RBC Hgb Hct MCV MCH MCHC RDW RDW Differential Plt Count MPV Immature Gran % (Auto) Neut % (Auto) Lymph % (Auto) [place] % (Auto) Eos % (Auto) Baso % (Auto) Absolute Neuts (auto) Absolute Lymphs (auto) Total Counted Sodium Potassium Chloride Carbon Dioxide Anion Gap BUN Creatinine Estim Creat Clear Calc Est GFR (MDRD) Af Amer Est GFR (MDRD) Non-Af BUN/Creatinine Ratio Glucose Calcium Urine Color Yellow Urine Clarity Clear Urine pH 6.0 Ur Specific [place] 1.015 Urine Protein 500 H Urine Glucose (UA) 1000 H Urine Ketones 5 H Urine Occult Blood 150 H Urine Nitrite Negative Urine Bilirubin Negative Urine Urobilinogen Normal Ur Leukocyte Esterase Negative Urine RBC 0-5 SEEN Urine WBC 0-5 SEEN Ur Squamous Epith Cells 0 SEEN Urine Bacteria 0 SEEN Urine Mucus 0 SEEN Ur Random Sodium Urine Creatinine 147.00 MRSA (PCR) POSITIVE H 08/29/17 08/30/17 08/30/17 20:21 05:48 05:48 WBC 11.9 H RBC 4.02 L Hgb 10.5 L Hct 32.1 L MCV 79.9 L MCH 26.1 L MCHC 32.7 RDW 14.9 H RDW Differential 43.1 Plt Count 191 MPV 10.5 Immature Gran % (Auto) 0.300 Neut % (Auto) 85.2 H Lymph % (Auto) 7.2 L [place] % (Auto) 6.5 Eos % (Auto) 0.6 Baso % (Auto) 0.2 Absolute Neuts (auto) 10.1 H Absolute Lymphs (auto) 0.86 Total Counted Not Reportable Sodium 132 L Potassium 4.7 Chloride 104 Carbon Dioxide 15.0 L Anion Gap 13 BUN 47 H Creatinine 2.56 H Estim Creat Clear Calc 30.84 Est GFR (MDRD) Af Amer 34 L Est GFR (MDRD) Non-Af 28 L BUN/Creatinine Ratio 18.4 Glucose 221 H Calcium 8.4 L Urine Color Urine Clarity Urine pH Ur Specific [place] Urine Protein Urine Glucose (UA) Urine Ketones Urine Occult Blood Urine Nitrite Urine Bilirubin Urine Urobilinogen Ur Leukocyte Esterase Urine RBC Urine WBC Ur Squamous Epith Cells Urine Bacteria Urine Mucus Ur Random Sodium 46 Urine Creatinine MRSA (PCR) POC Glucose 08/29/17 08/29/17 22:09 16:20 POC Glucose 178 H 189 H Clinical Impression(s) from Imaging Studies Chest X-Ray 08/29/17 12:19 IMPRESSION: Mild cardiomegaly. Postoperative changes of median sternotomy. No focal consolidation. Electronically Signed: Jakub Manrique DO at 14:03 EDT Tel , Service support , Renal Ultrasound 08/29/17 14:43 IMPRESSION: No evidence of hydronephrosis. Punctate stone right kidney. Probable Dromedary hump versus 3.7 cm isoechoic mass right kidney recommend consideration for follow-up study and/or comparison to a prior study if possible. Electronically Signed: Destini Fisher MD at 23:44 EDT Tel , Service support , Assessment/Plan Active and Suspected Problems Cellulitis (Acute) Severe sepsis (Acute) 1. Acute on chronic kidney disease stage II likely related to medication and cellulitis. Discontinue aldactone, GEENA inhibitor, avoid nephrotoxins. Avoid NSAID use. Creatinine appears to be at 1.2-1.4 with underlying diabetic kidney disease. Serum creatinine 1.2 in September 2016. Renal US with dromedary hump. follow up with repeat US in 6 months. 2. Acute cellulitis left lower extremity continue IV antibiotic therapy. Monitor vancomycin levels while on antibiotic therapy. 3. Diabetes mellitus type 2 with poor diabetic control. Discontinue metformin and Giardia is due to his acute renal failure. Hemoglobin A1c 10.8 from with Urine microalbumin to creatinine ratio 1727 mg/gram creatinine. 4. hypertention with stable blood pressure 5. CAD status post CABG 6. Morbid obesity 7. MELODIE noncompliant with CPAP. 8. Metabolic acidosis suspect due to renal failure, metformin, poor sugar control.
[2017-08-30] MEDS: Insulin Lispro 100 UNIT/ML INSULN.PEN 50 UNIT SC ×3 (08:15→17:23)
[2017-08-30] MEDS: Insulin Lispro 100 UNIT/ML INSULN.PEN SQ (08:15)
[2017-08-30] MEDS: Aspirin 81 MG TAB.CHEW PO (08:16)
[2017-08-30 08:35] LABS: Bedside Glucose 230 mg/dL (70-110)
--- NOTE | 2017-08-30 08:56 | SLEEP ---
Seen patient and educated him on the importance of PAP usage therapy. Patient explained that he currently has a PAP machine at home but is not complaint. He did not state why is does not like to use it. I left pt with a brochure with information and encouraged him to start using the machine. She did not have any questions for me and verbalized understanding.
[2017-08-30] MEDS: Atorvastatin Calcium 40 MG Tablet PO (10:26)
[2017-08-30] MEDS: Carvedilol 25 MG Tablet PO ×2 (10:26→21:46)
[2017-08-30] MEDS: Heparin Injection (Vial) 5,000 UNIT/ML VIAL 5000 UNIT SC ×2 (10:28→21:46)
[2017-08-30] MEDS: Pantoprazole Sodium 20 MG Tablet PO (10:28)
[2017-08-30] MEDS: amLODIPine 10 MG Tablet PO (10:28)
--- NOTE | 2017-08-30 12:12 | CASEMGMT ---
See RN CM Assessment List. DC PLAN: home -No dc needs identified @ this time. Shorty SAUCEDON RN ACM
[2017-08-30] MEDS: Acetaminophen 325 MG Tablet 650 MG PO ×2 (12:17→18:17)
--- NOTE | 2017-08-30 12:26 | PCM.HP.ID ---
Problem List (1) Cellulitis Status: Acute Qualifiers: Site of cellulitis: extremity Site of cellulitis of extremity: lower extremity Laterality: left Qualified Code(s): L03.116 - Cellulitis of left lower limb Reason for Consult: cellulitis Consulted by: Dr. Schmitz History of Present Illness: The patient is a 52 year old M with some chronic LLE swelling s/p vein harvesting several years ago who presented with 3-4 days of progressive L sinclair/calf redness/pain/warmth/swelling. No inciting event. No trauma. No open wounds. No animal bites/scratches. No drainage or h/o MRSA. Had similar episode 10/2015, treated by Dr. Lake. Mild chills prior to presentation. Came to ED, wbc was 17, started on vanc/zosyn. Feeling better, redness starting to recede. Full ROS performed and neg except as noted above. - Medical History Past Medical History (Chronic Problems): Chronic Problems Diabetes mellitus out of control (Chronic) Hyperlipidemia (Chronic) Benign essential hypertension (Chronic) Morbid obesity (Chronic) Coronary artery arteriosclerosis (Chronic) Lymphedema of left leg (Chronic) Left leg swelling (Chronic) Prostatism (Chronic) GERD (gastroesophageal reflux disease) (Chronic) Chronic venous insufficiency (Chronic) Edema of left lower extremity (Chronic) Allergies/Adverse Reactions: Allergies pravastatin sodium [From Pravachol] Adverse Reaction (Intermediate, Verified 08/29/17 11:32) Other ACHY MUSCLES Home Medications: Ambulatory Orders Medication Instructions Recorded Amlodipine [Norvasc] 10 mg PO DAILY 10/16/15 Aspirin [Aspirin, Baby] 81 mg PO DAILY@0800 10/16/15 Atorvastatin Calcium [Lipitor] 40 mg PO DAILY 10/16/15 Lisinopril [Zestril] 40 mg PO DAILY 10/16/15 Metformin HCl [Glucophage] 1,000 mg PO BIDCM 10/16/15 Carvedilol [Coreg] 25 mg PO BID 08/29/17 Empagliflozin [Jardiance] 10 mg PO DAILY 08/29/17 Hydrochlorothiazide [Hctz] 25 mg PO DAILY 08/29/17 Insulin Glargine,Hum.rec.anlog 150 unit SQ DAILY 08/29/17 [Edgar Frank] Insulin Lispro [Humalog Tyree 50 unit SQ TIDCM 08/29/17 Kwikpen] Meloxicam [Mobic] 15 mg PO DAILY PRN 08/29/17 Omeprazole [Prilosec] 20 mg PO DAILY 08/29/17 Spironolactone [Aldactone] 100 mg PO DAILY 08/29/17 - Social History Tobacco Use: non-smoker Vital Signs Temp Pulse Resp BP Pulse Ox 98.9 F 75 18 150/81 H 100 08/30/17 10:22 08/30/17 10:22 08/30/17 10:22 08/30/17 10:22 08/30/17 10:22 Oxygen Delivery Method Room Air Weight: 142.4 kg Body Mass Index (BMI) 49.1 Laboratory Tests Past 24 Hrs 08/29/17 08/29/17 08/29/17 19:30 20:21 20:21 WBC RBC Hgb Hct MCV MCH MCHC RDW RDW Differential Plt Count MPV Immature Gran % (Auto) Neut % (Auto) Lymph % (Auto) [place] % (Auto) Eos % (Auto) Baso % (Auto) Absolute Neuts (auto) Absolute Lymphs (auto) Total Counted Sodium Potassium Chloride Carbon Dioxide Anion Gap BUN Creatinine Estim Creat Clear Calc Est GFR (MDRD) Af Amer Est GFR (MDRD) Non-Af BUN/Creatinine Ratio Glucose Calcium Urine Color Yellow Urine Clarity Clear Urine pH 6.0 Ur Specific [place] 1.015 Urine Protein 500 H Urine Glucose (UA) 1000 H Urine Ketones 5 H Urine Occult Blood 150 H Urine Nitrite Negative Urine Bilirubin Negative Urine Urobilinogen Normal Ur Leukocyte Esterase Negative Urine RBC 0-5 SEEN Urine WBC 0-5 SEEN Ur Squamous Epith Cells 0 SEEN Urine Bacteria 0 SEEN Urine Mucus 0 SEEN Ur Random Sodium Urine Creatinine 147.00 MRSA (PCR) POSITIVE H 08/29/17 08/30/17 08/30/17 20:21 05:48 05:48 WBC 11.9 H RBC 4.02 L Hgb 10.5 L Hct 32.1 L MCV 79.9 L MCH 26.1 L MCHC 32.7 RDW 14.9 H RDW Differential 43.1 Plt Count 191 MPV 10.5 Immature Gran % (Auto) 0.300 Neut % (Auto) 85.2 H Lymph % (Auto) 7.2 L [place] % (Auto) 6.5 Eos % (Auto) 0.6 Baso % (Auto) 0.2 Absolute Neuts (auto) 10.1 H Absolute Lymphs (auto) 0.86 Total Counted Not Reportable Sodium 132 L Potassium 4.7 Chloride 104 Carbon Dioxide 15.0 L Anion Gap 13 BUN 47 H Creatinine 2.56 H Estim Creat Clear Calc 30.84 Est GFR (MDRD) Af Amer 34 L Est GFR (MDRD) Non-Af 28 L BUN/Creatinine Ratio 18.4 Glucose 221 H Calcium 8.4 L Urine Color Urine Clarity Urine pH Ur Specific [place] Urine Protein Urine Glucose (UA) Urine Ketones Urine Occult Blood Urine Nitrite Urine Bilirubin Urine Urobilinogen Ur Leukocyte Esterase Urine RBC Urine WBC Ur Squamous Epith Cells Urine Bacteria Urine Mucus Ur Random Sodium 46 Urine Creatinine MRSA (PCR) - Other Studies Radiology: [] reviewed Other Studies: [] Route of nutrition/ use of supplements: [] Nutritional Intake: [] IV Site: [] Burt Catheter: [] - Physical Exam General: Alert, Oriented x3, Cooperative, No apparent distress HEENT: Atraumatic, PERRLA, EOMI Neck: Supple, No Nodes Lungs: Clear to auscultation, Normal air movement Cardiovascular: Regular rate, Regular Rhythm Abdomen: Bowel Sounds Present, Soft, Non Tender, Non-Distended, Obese Extremities: Edema - LLE edema Skin: Rash Present - fading erythema and mild warmth over L sinclair/calf IV Site: Peripheral, without redness Musculoskeletal: No Tenderness to Palpation of Joints or Extremities Neurological: Cranial nerves II-XII grossly intact - Assessment/Plan Antibiotics: [] Assessment/Plan: [] Active and Suspected Problems Cellulitis (Acute) Severe sepsis (Acute) LLE cellulitis - improving. Narrow vanc/zosyn to cefazolin. No DVT seen on doppler. Plan will be for him to go home on oral abx. TALITA on CKD - neph following. Will follow, thank you.
[2017-08-30 12:41] LABS: Bedside Glucose 135 mg/dL (70-110)
[2017-08-30] MEDS: Cefazolin 2 GM in 0.9% Normal Saline 100 ML IV ×2 (14:11→21:46)
--- NOTE | 2017-08-30 14:11 | PCM.PN.HOSP ---
Patient Problems: Active and Suspected Problems Cellulitis (Acute) Severe sepsis (Acute) Subjective: Redness and left leg is improving. Patient has chronic swelling in his left leg as compared to his right given history of venous harvesting for a CABG. But has not had erythema of that leg nor cellulitis before. Vitals/I&O's: Vital Signs Temp Pulse Resp BP Pulse Ox 37.4 C H 70 18 101/52 L 97 08/30/17 14:07 08/30/17 14:07 08/30/17 14:07 08/30/17 14:07 08/30/17 14:07 Oxygen Delivery Method Room Air Weight: 142.4 kg Body Mass Index (BMI) 49.1 Intake and Output for Last 24 Hours 08/28/17 08/29/17 08/30/17 23:59 23:59 23:59 Intake Total 1097 / 1097 2447 / 2447 Balance 1097 / 1097 2447 / 2447 General: Alert, Cooperative, No apparent distress HEENT: Atraumatic, Normocephalic Neck: No Nodes, Thyroid Normal Size and Texture Lungs: Clear to auscultation, Normal air movement, No rhonchi, No wheeze Cardiovascular: Regular rate, Regular Rhythm, Normal S1, Normal S2, No murmurs Abdomen: Bowel Sounds Present, Soft, Non Tender, Non-Distended, No Hepato-splenomegaly Extremities: No edema, No Calf Tenderness Psych/Mental Status: Normal Affect, Appropriate Laboratory Results 08/29/17 16:20: POC Glucose 189 H 08/29/17 19:30: MRSA (PCR) POSITIVE H 08/29/17 20:21: Urine Color Yellow, Urine Clarity Clear, Urine pH 6.0, Ur Specific [place] 1.015, Urine Protein 500 H, Urine Glucose (UA) 1000 H, Urine Ketones 5 H, Urine Occult Blood 150 H, Urine Nitrite Negative, Urine Bilirubin Negative, Urine Urobilinogen Normal, Ur Leukocyte Esterase Negative, Urine RBC 0-5 SEEN, Urine WBC 0-5 SEEN, Ur Squamous Epith Cells 0 SEEN, Urine Bacteria 0 SEEN, Urine Mucus 0 SEEN 08/29/17 20:21: Urine Creatinine 147.00 08/29/17 20:21: Ur Random Sodium 46 08/29/17 22:09: POC Glucose 178 H 08/30/17 05:48: WBC 11.9 H, RBC 4.02 L, Hgb 10.5 L, Hct 32.1 L, MCV 79.9 L, MCH 26.1 L, MCHC 32.7, RDW 14.9 H, RDW Differential 43.1, Plt Count 191, MPV 10.5, Immature Gran % (Auto) 0.300, Neut % (Auto) 85.2 H, Lymph % (Auto) 7.2 L, [place] % (Auto) 6.5, Eos % (Auto) 0.6, Baso % (Auto) 0.2, Absolute Neuts (auto) 10.1 H, Absolute Lymphs (auto) 0.86, Total Counted Not Reportable 08/30/17 05:48: Sodium 132 L, Potassium 4.7, Chloride 104, Carbon Dioxide 15.0 L, Anion Gap 13, BUN 47 H, Creatinine 2.56 H, Estim Creat Clear Calc 30.84, Est GFR (MDRD) Af Amer 34 L, Est GFR (MDRD) Non-Af 28 L, BUN/Creatinine Ratio 18.4, Glucose 221 H, Calcium 8.4 L 08/30/17 08:12: POC Glucose 230 H 08/30/17 12:03: POC Glucose 135 H Current Medications Acetaminophen (Tylenol) 650 mg PO Q6H PRN PRN PRN Reason: Mild Pain (scale 0-3)/T>100.7 Last Admin: 08/30/17 12:17 Dose: 650 mg Amlodipine Besylate (Norvasc) 10 mg PO DAILY [facility] Last Admin: 08/30/17 10:28 Dose: 10 mg Aspirin (Aspirin, Baby) 81 mg PO DAILY@0800 [facility] Last Admin: 08/30/17 08:16 Dose: 81 mg Atorvastatin Calcium (Lipitor) 40 mg PO DAILY [facility] Last Admin: 08/30/17 10:26 Dose: 40 mg Bisacodyl (Dulcolax) 5 mg PO DAILY PRN PRN PRN Reason: Constipation Carvedilol (Coreg) 25 mg PO BID [facility] Last Admin: 08/30/17 10:26 Dose: 25 mg Dextrose (D50w Syringe) 0 gm IV X1 PRN; Protocol PRN Reason: Hypoglycemia Glucagon () 1 mg IM .X1 PRN PRN Reason: Hypoglycemia Heparin Sodium (Porcine) (Heparin Na) 5,000 unit SC Q12 [facility] Last Admin: 08/30/17 10:28 Dose: 5,000 u Hydralazine HCl (Apresoline Iv) 5 mg IV Q6H PRN PRN PRN Reason: BLOOD PRESSURE Sodium Chloride () 1,000 mls @ 100 mls/hr IV .Q10H [facility] Last Admin: 08/30/17 03:36 Dose: 100 mls/hr Cefazolin Sodium 2 gm/ Sodium (Chloride) 110 mls @ 150 mls/hr IV Q12 [facility] Insulin Detemir (Levemir (Bkc)) 150 units SC DAILY [facility] Last Admin: 08/30/17 10:26 Dose: 150 units Insulin Human Lispro (Humalog Kwikpen (Bkc)) 50 unit SC TIDCM [facility] Last Admin: 08/30/17 12:08 Dose: 15 units Insulin Human Lispro (Humalog Kwikpen (Bkc)) 0 unit SQ ACHS [facility] PRN Reason: Protocol Last Admin: 08/30/17 12:05 Dose: Not Given Magnesium Hydroxide (Milk Of Magnesia) 30 ml PO DAILY PRN PRN PRN Reason: Constipation Morphine Sulfate () 1 - 2 mg IV Q4H PRN PRN PRN Reason: Moderate Pain (pain scale 4-5) Ondansetron HCl (Zofran) 4 mg IV Q8H PRN PRN PRN Reason: Nausea Oxycodone HCl (Oxyir) 5 mg PO Q4H PRN PRN PRN Reason: Moderate Pain (pain scale 4-5) Last Admin: 08/29/17 20:22 Dose: 5 mg Pantoprazole Sodium (Protonix) 20 mg PO DAILY [facility] Last Admin: 08/30/17 10:28 Dose: 20 mg Psyllium Hydrophilic Mucilloid (Metamucil) 1 packet PO DAILY PRN PRN PRN Reason: CONSTIPATION Sodium Chloride () 5 - 30 ml IV UD PRN PRN Reason: SALINE FLUSH Medical Necessity - Tobacco Use Smoking Status: Never smoker Tobacco Use: Non-smoker Assessment/Plan Active and Suspected Problems Cellulitis (Acute) Severe sepsis (Acute) 1. Severe sepsis Present on admission Due to cellulitis Clinically improved 2. Left lower extremity cellulitis Improving Seen by infectious disease who has changed the antibiotics over to cefazolin To be discharged with oral antibiotics 3. Acute kidney disease versus chronic kidney disease progression Creatinine unchanged, essentially Continue with IV fluids Nephrology following Will need follow-up with nephrology as well as follow-up repeat ultrasound to evaluate the dromedary hump versus isoechoic mass in the right kidney 4. DVT prophylaxis Poor control Continue with sliding scale, scheduled log and Levemir. 5. DVT prophylaxis with heparin Code Visit Inpatient E&M: 20291 Subs Hosp L2
--- NOTE | 2017-08-30 14:13 | CHAPLAIN ---
Type of Pastoral Visit _x__ Initial Visit ___ Follow-up Visit ___ On-call Visit ___ General Patient Visit ___ Spiritual Assessment ___ Family Conference ___ Bereavement ___ Rapid Response ___ Code Blue ___ Other (describe below) Pastoral Care Referral From _x__ Patient ___ Family ___ Nurse ___ Physician ___ Collections Representative ___ Risk And Insurance Manager ___ Other (describe below) Sacrament/Intervention _x__ Active listening ___ Anointing ___ Religion ___ Bereavement ___ Communion ___ Renu exploration ___ _x__ Life review _x__ Prayer ___ Reconciliation ___ Sacrament of Sick ___ Supportive presence ___ Wedding ___ Other (describe below) Pastoral Comments
--- NOTE | 2017-08-30 14:17 | PN_ITS ---
Patient Problems: Active and Suspected Problems Cellulitis (Acute) Severe sepsis (Acute) Subjective: Redness and left leg is improving. Patient has chronic swelling in his left leg as compared to his right given history of venous harvesting for a CABG. But has not had erythema of that leg nor cellulitis before. Vitals/I&O's: Vital Signs Temp Pulse Resp BP Pulse Ox 37.4 C H 70 18 101/52 L 97 08/30/17 14:07 08/30/17 14:07 08/30/17 14:07 08/30/17 14:07 08/30/17 14:07 Oxygen Delivery Method Room Air Weight: 142.4 kg Body Mass Index (BMI) 49.1 Intake and Output for Last 24 Hours 08/28/17 08/29/17 08/30/17 23:59 23:59 23:59 Intake Total 1097 / 1097 2447 / 2447 Balance 1097 / 1097 2447 / 2447 General: Alert, Cooperative, No apparent distress HEENT: Atraumatic, Normocephalic Neck: No Nodes, Thyroid Normal Size and Texture Lungs: Clear to auscultation, Normal air movement, No rhonchi, No wheeze Cardiovascular: Regular rate, Regular Rhythm, Normal S1, Normal S2, No murmurs Abdomen: Bowel Sounds Present, Soft, Non Tender, Non-Distended, No Hepato- splenomegaly Extremities: No edema, No Calf Tenderness Psych/Mental Status: Normal Affect, Appropriate Laboratory Results 08/29/17 16:20: POC Glucose 189 H 08/29/17 19:30: MRSA (PCR) POSITIVE H 08/29/17 20:21: Urine Color Yellow, Urine Clarity Clear, Urine pH 6.0, Ur Specific [place] 1.015, Urine Protein 500 H, Urine Glucose (UA) 1000 H, Urine Ketones 5 H, Urine Occult Blood 150 H, Urine Nitrite Negative, Urine Bilirubin Negative, Urine Urobilinogen Normal, Ur Leukocyte Esterase Negative, Urine RBC 0 -5 SEEN, Urine WBC 0-5 SEEN, Ur Squamous Epith Cells 0 SEEN, Urine Bacteria 0 SEEN, Urine Mucus 0 SEEN 08/29/17 20:21: Urine Creatinine 147.00 08/29/17 20:21: Ur Random Sodium 46 08/29/17 22:09: POC Glucose 178 H 08/30/17 05:48: WBC 11.9 H, RBC 4.02 L, Hgb 10.5 L, Hct 32.1 L, MCV 79.9 L, MCH 26.1 L, MCHC 32.7, RDW 14.9 H, RDW Differential 43.1, Plt Count 191, MPV 10.5, Immature Gran % (Auto) 0.300, Neut % (Auto) 85.2 H, Lymph % (Auto) 7.2 L, [place] % (Auto) 6.5, Eos % (Auto) 0.6, Baso % (Auto) 0.2, Absolute Neuts (auto) 10.1 H , Absolute Lymphs (auto) 0.86, Total Counted Not Reportable 08/30/17 05:48: Sodium 132 L, Potassium 4.7, Chloride 104, Carbon Dioxide 15.0 L , Anion Gap 13, BUN 47 H, Creatinine 2.56 H, Estim Creat Clear Calc 30.84, Est GFR (MDRD) Af Amer 34 L, Est GFR (MDRD) Non-Af 28 L, BUN/Creatinine Ratio 18.4, Glucose 221 H, Calcium 8.4 L 08/30/17 08:12: POC Glucose 230 H 08/30/17 12:03: POC Glucose 135 H Current Medications Acetaminophen (Tylenol) 650 mg PO Q6H PRN PRN PRN Reason: Mild Pain (scale 0-3)/T>100.7 Last Admin: 08/30/17 12:17 Dose: 650 mg Amlodipine Besylate (Norvasc) 10 mg PO DAILY [facility] Last Admin: 08/30/17 10:28 Dose: 10 mg Aspirin (Aspirin, Baby) 81 mg PO DAILY@0800 [facility] Last Admin: 08/30/17 08:16 Dose: 81 mg Atorvastatin Calcium (Lipitor) 40 mg PO DAILY [facility] Last Admin: 08/30/17 10:26 Dose: 40 mg Bisacodyl (Dulcolax) 5 mg PO DAILY PRN PRN PRN Reason: Constipation Carvedilol (Coreg) 25 mg PO BID [facility] Last Admin: 08/30/17 10:26 Dose: 25 mg Dextrose (D50w Syringe) 0 gm IV X1 PRN; Protocol PRN Reason: Hypoglycemia Glucagon () 1 mg IM .X1 PRN PRN Reason: Hypoglycemia Heparin Sodium (Porcine) (Heparin Na) 5,000 unit SC Q12 [facility] Last Admin: 08/30/17 10:28 Dose: 5,000 u Hydralazine HCl (Apresoline Iv) 5 mg IV Q6H PRN PRN PRN Reason: BLOOD PRESSURE Sodium Chloride () 1,000 mls @ 100 mls/hr IV .Q10H [facility] Last Admin: 08/30/17 03:36 Dose: 100 mls/hr Cefazolin Sodium 2 gm/ Sodium (Chloride) 110 mls @ 150 mls/hr IV Q12 [facility] Insulin Detemir (Levemir (Bkc)) 150 units SC DAILY [facility] Last Admin: 08/30/17 10:26 Dose: 150 units Insulin Human Lispro (Humalog Kwikpen (Bkc)) 50 unit SC TIDCM [facility] Last Admin: 08/30/17 12:08 Dose: 15 units Insulin Human Lispro (Humalog Kwikpen (Bkc)) 0 unit SQ ACHS [facility] PRN Reason: Protocol Last Admin: 08/30/17 12:05 Dose: Not Given Magnesium Hydroxide (Milk Of Magnesia) 30 ml PO DAILY PRN PRN PRN Reason: Constipation Morphine Sulfate () 1 - 2 mg IV Q4H PRN PRN PRN Reason: Moderate Pain (pain scale 4-5) Ondansetron HCl (Zofran) 4 mg IV Q8H PRN PRN PRN Reason: Nausea Oxycodone HCl (Oxyir) 5 mg PO Q4H PRN PRN PRN Reason: Moderate Pain (pain scale 4-5) Last Admin: 08/29/17 20:22 Dose: 5 mg Pantoprazole Sodium (Protonix) 20 mg PO DAILY [facility] Last Admin: 08/30/17 10:28 Dose: 20 mg Psyllium Hydrophilic Mucilloid (Metamucil) 1 packet PO DAILY PRN PRN PRN Reason: CONSTIPATION Sodium Chloride () 5 - 30 ml IV UD PRN PRN Reason: SALINE FLUSH Medical Necessity - Tobacco Use Smoking Status: Never smoker Tobacco Use: Non-smoker Assessment/Plan Active and Suspected Problems Cellulitis (Acute) Severe sepsis (Acute) 1. Severe sepsis * Present on admission * Due to cellulitis * Clinically improved 2. Left lower extremity cellulitis * Improving * Seen by infectious disease who has changed the antibiotics over to cefazolin * To be discharged with oral antibiotics 3. Acute kidney disease versus chronic kidney disease progression * Creatinine unchanged, essentially * Continue with IV fluids * Nephrology following * Will need follow-up with nephrology as well as follow-up repeat ultrasound to evaluate the dromedary hump versus isoechoic mass in the right kidney 4. DVT prophylaxis * Poor control * Continue with sliding scale, scheduled log and Levemir. 5. DVT prophylaxis with heparin Code Visit Inpatient E&M: 29485 Subs Hosp L2
[2017-08-30 17:25] LABS: Bedside Glucose 182 mg/dL (70-110)
[2017-08-30] MEDS: oxyCODONE 5 MG Tablet PO (21:46)
[2017-08-30 23:30] LABS: Bedside Glucose 97 mg/dL (70-110)
[2017-08-31] VITALS (7 sets, daily range): BP systolic 109–133; BP diastolic 56–60; PULSE 63–72; RESP 16–18; TEMP 36.8–37.3; O2SAT 96–98
[2017-08-31] MEDS: 0.9% Normal Saline 1,000 ML 100 ML IV (00:50)
[2017-08-31 06:01] LABS: Absolute Lymphocyte Count 0.97 X10^3/ul (0.83-4.51); Absolute Neutrophil Count 8.3 X10^3/uL (2.0-7.7); Basophil# 0.02 X10^3/uL; Basophil% 0.2 % (0-1); Eosinophil# 0.16 X10^3/uL; Eosinophils% 1.5 % (0-5); Hemoglobin 9.7 g/dl (13.0-16.5); Lymphocyte # 0.97 X10^3/ul (4.0); Lymphocyte % 9.3 % (19-41); Mean Corp Hgb Conc 32.3 g/gl (32-36); Mean Corpuscular Hgb 25.6 pg (27.0-32.0); Mean Corpuscular Volume 79.2 fL (80-94); Mean Platelet Vol. 10.1 fl (6.2-12.0); Monocyte# 1.01 X10^3/uL; Monocyte% 9.6 % (0-10); Neutrophil # 8.26 X10^3/uL (2.7-7.7); Neutrophil % 78.9 % (47-70); Platelet Count 179 K/mm3 (150-450); RBC Distribution Width SD 42.6 fl (35.1-43.9); Red Blood Count 3.79 M/mm3 (4.6-6.2); White Blood Count 10.5 K/mm3 (4.4-11.0)
[2017-08-31 06:10] LABS: POSITIVE COUNT NO; POSITIVE DIFFERENTIAL NO; POSITIVE MORPHOLOGY NO
[2017-08-31 06:32] LABS: Anion Gap 11 (5-15); BUN 39 mg/dL (7-18); BUN/Creat Ratio 19.9 RATIO (10-20); Calcium,Total 8.3 mg/dL (8.5-10.1); Chloride 109 mmol/L (98-107); Creatinine, Serum 1.96 mg/dL (0.70-1.30); EST Glomerular Filtration Rate 38 mL/min (>60); Est Glom Filt Rate - Afr Amer 46 mL/min (>60); Estimated Creatinine Clearance 40.28 ml/min; Glucose 87 mg/dL (74-106); Potassium 4.1 mmol/L (3.5-5.1); Sodium Level 137 mmol/L (136-145)
[2017-08-31 07:35] LABS: Bedside Glucose 98 mg/dL (70-110)
--- NOTE | 2017-08-31 08:30 | PN.RENAL_ITS ---
Patient Problems: Active and Suspected Problems Cellulitis (Acute) Severe sepsis (Acute) Subjective: still with left leg pain especially with ambulation, redness, swelling, warmth. Low gr fever. ID on consult. Denied SOB, nausea, vomiting. Appetite poor. - Physical Exam General: Alert, Oriented x3, Cooperative, No apparent distress Lungs: Clear to auscultation, Diminished Cardiovascular: Regular rate Abdomen: Bowel Sounds Present, Soft, Non Tender, Non-Distended, Obese Extremities: Edema - LLE, increased warmth Skin: - - cellulitits LLE with tenderness to touch Musculoskeletal: No Muscle Wasting Neurological: Cranial nerves II-XII grossly intact Psych/Mental Status: Normal Affect, Appropriate, Alert and oriented to time, place, person, mood and affect Vital Signs Temp Pulse Resp BP Pulse Ox 99.1 F 69 16 110/59 L 96 08/31/17 03:34 08/31/17 03:47 08/31/17 03:34 08/31/17 03:34 08/31/17 03:34 Oxygen Delivery Method Room Air Weight: 142.4 kg Body Mass Index (BMI) 49.1 Intake and Output for Last 24 Hours 08/29/17 08/30/17 08/31/17 23:59 23:59 23:59 Intake Total 1097 / 1097 3522 / 3522 3388 / 3388 Balance 1097 / 1097 3522 / 3522 3388 / 3388 Microbiology Past 72 Hours 08/29/17 20:21 Urine Culture - Final Urine, Clean Catch Mixed Gram Positive Organisms Laboratory Tests Past 24 Hrs 08/31/17 08/31/17 05:35 05:35 WBC 10.5 RBC 3.79 L Hgb 9.7 L Hct 30.0 L MCV 79.2 L MCH 25.6 L MCHC 32.3 RDW 15.0 H RDW Differential 42.6 Plt Count 179 MPV 10.1 Immature Gran % (Auto) 0.500 Neut % (Auto) 78.9 H Lymph % (Auto) 9.3 L [place] % (Auto) 9.6 Eos % (Auto) 1.5 Baso % (Auto) 0.2 Absolute Neuts (auto) 8.3 H Absolute Lymphs (auto) 0.97 Total Counted Not Reportable Sodium 137 Potassium 4.1 Chloride 109 H Carbon Dioxide 17.0 L Anion Gap 11 BUN 39 H Creatinine 1.96 H Estim Creat Clear Calc 40.28 Est GFR (MDRD) Af Amer 46 L Est GFR (MDRD) Non-Af 38 L BUN/Creatinine Ratio 19.9 Glucose 87 Calcium 8.3 L POC Glucose 08/31/17 08/30/17 08/30/17 07:30 21:39 16:58 POC Glucose 98 97 182 H 08/30/17 08/30/17 12:03 08:12 POC Glucose 135 H 230 H Medical Necessity - Tobacco Use Smoking Status: Never smoker Tobacco Use: Non-smoker Assessment/Plan All Active Problems Cellulitis (Acute) Severe sepsis (Acute) Leg pain, left (Acute) Left leg cellulitis (Acute) 1. Acute on chronic kidney disease stage II likely related to medication and cellulitis. Discontinued aldactone, GEENA inhibitor, avoid nephrotoxins. Avoid NSAID use. Creatinine baseline 1.2-1.4 with underlying diabetic kidney disease. Creatinine improved to 1.95 today 2. Acute cellulitis left lower extremity continue IV antibiotic therapy. ID following 3. Diabetes mellitus type 2 with poor diabetic control. Discontinue metformin and Jardance due to his acute renal failure. 4. hypertention with stable blood pressure 5. CAD status post CABG 6. Morbid obesity 7. MELODIE noncompliant with CPAP. 8. Metabolic acidosis suspect due to renal failure, metformin, poor sugar control.
[2017-08-31] MEDS: Acetaminophen 325 MG Tablet 650 MG PO (08:32)
[2017-08-31] MEDS: Cefazolin 2 GM in 0.9% Normal Saline 100 ML IV ×2 (08:34→21:16)
[2017-08-31] MEDS: Aspirin 81 MG TAB.CHEW PO (08:34)
[2017-08-31] MEDS: Pantoprazole Sodium 20 MG Tablet PO (08:35)
[2017-08-31] MEDS: Carvedilol 25 MG Tablet PO ×2 (08:35→21:17)
[2017-08-31] MEDS: Atorvastatin Calcium 40 MG Tablet PO (08:35)
[2017-08-31] MEDS: amLODIPine 10 MG Tablet PO (08:35)
[2017-08-31] MEDS: Heparin Injection (Vial) 5,000 UNIT/ML VIAL 5000 UNIT SC ×2 (08:35→21:17)
[2017-08-31 10:31] LABS: Bedside Glucose 191 mg/dL (70-110)
--- NOTE | 2017-08-31 10:46 | PN.ID_ITS ---
Patient Problems: Active and Suspected Problems Cellulitis (Acute) Severe sepsis (Acute) Subjective: Feeling ok, leg still red/sore/swollen. No fever, no n/v/d. - Physical Exam General: Alert, Cooperative, No apparent distress Lungs: Clear to auscultation, Normal air movement Cardiovascular: Regular rate, Regular Rhythm Abdomen: Soft, Non Tender, Non-Distended Skin: Rash Present - L sinclair/calf redness/warmth/swelling. Redness slightly fading. Vital Signs Temp Pulse Resp BP Pulse Ox 98.2 F 72 18 120/60 96 08/31/17 08:27 08/31/17 08:27 08/31/17 08:27 08/31/17 08:27 08/31/17 08:27 Oxygen Delivery Method Room Air Weight: 142.4 kg Body Mass Index (BMI) 49.1 Intake and Output for Last 24 Hours 08/29/17 08/30/17 08/31/17 23:59 23:59 23:59 Intake Total 1097 / 1097 3522 / 3522 3388 / 3388 Balance 1097 / 1097 3522 / 3522 3388 / 3388 Microbiology Past 72 Hours 08/29/17 20:21 Urine Culture - Final Urine, Clean Catch Mixed Gram Positive Organisms Laboratory Tests Past 24 Hrs 08/31/17 08/31/17 05:35 05:35 WBC 10.5 RBC 3.79 L Hgb 9.7 L Hct 30.0 L MCV 79.2 L MCH 25.6 L MCHC 32.3 RDW 15.0 H RDW Differential 42.6 Plt Count 179 MPV 10.1 Immature Gran % (Auto) 0.500 Neut % (Auto) 78.9 H Lymph % (Auto) 9.3 L [place] % (Auto) 9.6 Eos % (Auto) 1.5 Baso % (Auto) 0.2 Absolute Neuts (auto) 8.3 H Absolute Lymphs (auto) 0.97 Total Counted Not Reportable Sodium 137 Potassium 4.1 Chloride 109 H Carbon Dioxide 17.0 L Anion Gap 11 BUN 39 H Creatinine 1.96 H Estim Creat Clear Calc 40.28 Est GFR (MDRD) Af Amer 46 L Est GFR (MDRD) Non-Af 38 L BUN/Creatinine Ratio 19.9 Glucose 87 Calcium 8.3 L POC Glucose 08/31/17 08/31/1708/30/18 10:17 07:30 21:39 POC Glucose 191 H 98 97 08/30/17 08/30/17 16:58 12:03 POC Glucose 182 H 135 H Medical Necessity - Tobacco Use Smoking Status: Never smoker Tobacco Use: Non-smoker Route of nutrition/ use of supplements: [] Nutritional Intake: [] IV Site: [] Burt Catheter: [] - Assessment/Plan Antibiotics: [] Assessment/Plan: [] Active and Suspected Problems Cellulitis (Acute) Severe sepsis (Acute) LLE cellulitis - improving; 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 Narrowed vanc/zosyn to cefazolin. No DVT seen on doppler. Plan will be for him to go home on oral abx. TALITA on CKD - neph following. Cr better today. Will follow
[2017-08-31 11:36] LABS: Bedside Glucose 182 mg/dL (70-110)
[2017-08-31] MEDS: Insulin Lispro 100 UNIT/ML INSULN.PEN 50 UNIT SC ×2 (12:14→17:16)
--- NOTE | 2017-08-31 14:25 | PCM.PN.HOSP ---
Patient Problems: Active and Suspected Problems Cellulitis (Acute) Severe sepsis (Acute) Subjective: No new complaints. Vitals/I&O's: Vital Signs Temp Pulse Resp BP Pulse Ox 36.8 C 64 18 109/56 L 96 08/31/17 13:33 08/31/17 13:33 08/31/17 13:33 08/31/17 13:33 08/31/17 13:33 Oxygen Delivery Method Room Air Weight: 142.4 kg Body Mass Index (BMI) 49.1 Intake and Output for Last 24 Hours 08/29/17 08/30/17 08/31/17 23:59 23:59 23:59 Intake Total 1097 / 1097 3522 / 3522 4351 / 4351 Balance 1097 / 1097 3522 / 3522 4351 / 4351 General: Alert, Cooperative, No apparent distress, Well developed, Well nourished HEENT: Atraumatic, Normocephalic Extremities: No clubbing, No cyanosis, No edema Skin: - - Decreased erythema of the left lower extremity. Around the lateral and medial margins of the leg. Still with bright erythema anteriorly and with tenderness palpation. No fluctuance was appreciated. Musculoskeletal: No Muscle Wasting, Tenderness - Anterior right lower extremity Neurological: Sensory exam intact to light touch and pain, Coordination normal Psych/Mental Status: Normal Affect, Appropriate Microbiology Past 72 Hours 08/29/17 20:21 Urine, Clean Catch Urine Culture - Final Mixed Gram Positive Organisms Laboratory Results 08/30/17 16:58: POC Glucose 182 H 08/30/17 21:39: POC Glucose 97 08/31/17 05:35: WBC 10.5, RBC 3.79 L, Hgb 9.7 L, Hct 30.0 L, MCV 79.2 L, MCH 25.6 L, MCHC 32.3, RDW 15.0 H, RDW Differential 42.6, Plt Count 179, MPV 10.1, Immature Gran % (Auto) 0.500, Neut % (Auto) 78.9 H, Lymph % (Auto) 9.3 L, [place] % (Auto) 9.6, Eos % (Auto) 1.5, Baso % (Auto) 0.2, Absolute Neuts (auto) 8.3 H, Absolute Lymphs (auto) 0.97, Total Counted Not Reportable 08/31/17 05:35: Sodium 137, Potassium 4.1, Chloride 109 H, Carbon Dioxide 17.0 L, Anion Gap 11, BUN 39 H, Creatinine 1.96 H, Estim Creat Clear Calc 40.28, Est GFR (MDRD) Af Amer 46 L, Est GFR (MDRD) Non-Af 38 L, BUN/Creatinine Ratio 19.9, Glucose 87, Calcium 8.3 L 08/31/17 07:30: POC Glucose 98 08/31/17 10:17: POC Glucose 191 H 08/31/17 11:33: POC Glucose 182 H Current Medications Acetaminophen (Tylenol) 650 mg PO Q6H PRN PRN PRN Reason: Mild Pain (scale 0-3)/T>100.7 Last Admin: 08/31/17 08:32 Dose: 650 mg Amlodipine Besylate (Norvasc) 10 mg PO DAILY [facility] Last Admin: 08/31/17 08:35 Dose: 10 mg Aspirin (Aspirin, Baby) 81 mg PO DAILY@0800 [facility] Last Admin: 08/31/17 08:34 Dose: 81 mg Atorvastatin Calcium (Lipitor) 40 mg PO DAILY [facility] Last Admin: 08/31/17 08:35 Dose: 40 mg Bisacodyl (Dulcolax) 5 mg PO DAILY PRN PRN PRN Reason: Constipation Carvedilol (Coreg) 25 mg PO BID [facility] Last Admin: 08/31/17 08:35 Dose: 25 mg Dextrose (D50w Syringe) 0 gm IV X1 PRN; Protocol PRN Reason: Hypoglycemia Glucagon () 1 mg IM .X1 PRN PRN Reason: Hypoglycemia Heparin Sodium (Porcine) (Heparin Na) 5,000 unit SC Q12 [facility] Last Admin: 08/31/17 08:35 Dose: 5,000 u Hydralazine HCl (Apresoline Iv) 5 mg IV Q6H PRN PRN PRN Reason: BLOOD PRESSURE Cefazolin Sodium 2 gm/ Sodium (Chloride) 110 mls @ 150 mls/hr IV Q12 [facility] Last Admin: 08/31/17 08:34 Dose: 150 mls/hr Insulin Detemir (Levemir (Bkc)) 150 units SC DAILY [facility] Last Admin: 08/31/17 10:21 Dose: 150 units Insulin Human Lispro (Humalog Kwikpen (Bk)) 50 unit SC TIDCM [facility] Last Admin: 08/31/17 12:14 Dose: 40 units Insulin Human Lispro (Humalog Kwikpen (Bkc)) 0 unit SQ ACHS [facility] PRN Reason: Protocol Last Admin: 08/31/17 12:13 Dose: Not Given Magnesium Hydroxide (Milk Of Magnesia) 30 ml PO DAILY PRN PRN PRN Reason: Constipation Morphine Sulfate () 1 - 2 mg IV Q4H PRN PRN PRN Reason: Moderate Pain (pain scale 4-5) Ondansetron HCl (Zofran) 4 mg IV Q8H PRN PRN PRN Reason: Nausea Oxycodone HCl (Oxyir) 5 mg PO Q4H PRN PRN PRN Reason: Moderate Pain (pain scale 4-5) Last Admin: 08/30/17 21:46 Dose: 5 mg Pantoprazole Sodium (Protonix) 20 mg PO DAILY [facility] Last Admin: 08/31/17 08:35 Dose: 20 mg Psyllium Hydrophilic Mucilloid (Metamucil) 1 packet PO DAILY PRN PRN PRN Reason: CONSTIPATION Sodium Chloride () 5 - 30 ml IV UD PRN PRN Reason: SALINE FLUSH Medical Necessity - Tobacco Use Smoking Status: Never smoker Tobacco Use: Non-smoker Assessment/Plan All Active Problems Cellulitis (Acute) Severe sepsis (Acute) Leg pain, left (Acute) Left leg cellulitis (Acute) 1. Severe sepsis Present on admission Due to cellulitis Clinically improved 2. Left lower extremity cellulitis Improving Seen by infectious disease who has changed the antibiotics over to cefazolin To be discharged with oral antibiotics Await final wound cultures which is showing mixed gram-positive organisms 3. Acute kidney disease versus chronic kidney disease progression Creatinine unchanged, essentially off of IVF Nephrology following Will need follow-up with nephrology as well as follow-up repeat ultrasound to evaluate the dromedary hump versus isoechoic mass in the right kidney 4. DVT prophylaxis Poor control Continue with sliding scale, scheduled log and Levemir. 5. DVT prophylaxis with heparin Code Visit Inpatient E&M: 82995 Subs Hosp L2
--- NOTE | 2017-08-31 14:28 | PN_ITS ---
Patient Problems: Active and Suspected Problems Cellulitis (Acute) Severe sepsis (Acute) Subjective: No new complaints. Vitals/I&O's: Vital Signs Temp Pulse Resp BP Pulse Ox 36.8 C 64 18 109/56 L 96 08/31/17 13:33 08/31/17 13:33 08/31/17 13:33 08/31/17 13:33 08/31/17 13:33 Oxygen Delivery Method Room Air Weight: 142.4 kg Body Mass Index (BMI) 49.1 Intake and Output for Last 24 Hours 08/29/17 08/30/17 08/31/17 23:59 23:59 23:59 Intake Total 1097 / 1097 3522 / 3522 4351 / 4351 Balance 1097 / 1097 3522 / 3522 4351 / 4351 General: Alert, Cooperative, No apparent distress, Well developed, Well nourished HEENT: Atraumatic, Normocephalic Extremities: No clubbing, No cyanosis, No edema Skin: - - Decreased erythema of the left lower extremity. Around the lateral and medial margins of the leg. Still with bright erythema anteriorly and with tenderness palpation. No fluctuance was appreciated. Musculoskeletal: No Muscle Wasting, Tenderness - Anterior right lower extremity Neurological: Sensory exam intact to light touch and pain, Coordination normal Psych/Mental Status: Normal Affect, Appropriate Microbiology Past 72 Hours 08/29/17 20:21 Urine, Clean Catch Urine Culture - Final Mixed Gram Positive Organisms Laboratory Results 08/30/17 16:58: POC Glucose 182 H 08/30/17 21:39: POC Glucose 97 08/31/17 05:35: WBC 10.5, RBC 3.79 L, Hgb 9.7 L, Hct 30.0 L, MCV 79.2 L, MCH 25.6 L, MCHC 32.3, RDW 15.0 H, RDW Differential 42.6, Plt Count 179, MPV 10.1, Immature Gran % (Auto) 0.500, Neut % (Auto) 78.9 H, Lymph % (Auto) 9.3 L, [place] % (Auto) 9.6, Eos % (Auto) 1.5, Baso % (Auto) 0.2, Absolute Neuts (auto) 8.3 H, Absolute Lymphs (auto) 0.97, Total Counted Not Reportable 08/31/17 05:35: Sodium 137, Potassium 4.1, Chloride 109 H, Carbon Dioxide 17.0 L , Anion Gap 11, BUN 39 H, Creatinine 1.96 H, Estim Creat Clear Calc 40.28, Est GFR (MDRD) Af Amer 46 L, Est GFR (MDRD) Non-Af 38 L, BUN/Creatinine Ratio 19.9, Glucose 87, Calcium 8.3 L 08/31/17 07:30: POC Glucose 98 08/31/17 10:17: POC Glucose 191 H 08/31/17 11:33: POC Glucose 182 H Current Medications Acetaminophen (Tylenol) 650 mg PO Q6H PRN PRN PRN Reason: Mild Pain (scale 0-3)/T>100.7 Last Admin: 08/31/17 08:32 Dose: 650 mg Amlodipine Besylate (Norvasc) 10 mg PO DAILY [facility] Last Admin: 08/31/17 08:35 Dose: 10 mg Aspirin (Aspirin, Baby) 81 mg PO DAILY@0800 [facility] Last Admin: 08/31/17 08:34 Dose: 81 mg Atorvastatin Calcium (Lipitor) 40 mg PO DAILY [facility] Last Admin: 08/31/17 08:35 Dose: 40 mg Bisacodyl (Dulcolax) 5 mg PO DAILY PRN PRN PRN Reason: Constipation Carvedilol (Coreg) 25 mg PO BID [facility] Last Admin: 08/31/17 08:35 Dose: 25 mg Dextrose (D50w Syringe) 0 gm IV X1 PRN; Protocol PRN Reason: Hypoglycemia Glucagon () 1 mg IM .X1 PRN PRN Reason: Hypoglycemia Heparin Sodium (Porcine) (Heparin Na) 5,000 unit SC Q12 [facility] Last Admin: 08/31/17 08:35 Dose: 5,000 u Hydralazine HCl (Apresoline Iv) 5 mg IV Q6H PRN PRN PRN Reason: BLOOD PRESSURE Cefazolin Sodium 2 gm/ Sodium (Chloride) 110 mls @ 150 mls/hr IV Q12 [facility] Last Admin: 08/31/17 08:34 Dose: 150 mls/hr Insulin Detemir (Levemir (Bkc)) 150 units SC DAILY [facility] Last Admin: 08/31/17 10:21 Dose: 150 units Insulin Human Lispro (Humalog Kwikpen (Bk)) 50 unit SC TIDCM [facility] Last Admin: 08/31/17 12:14 Dose: 40 units Insulin Human Lispro (Humalog Kwikpen (Bkc)) 0 unit SQ ACHS [facility] PRN Reason: Protocol Last Admin: 08/31/17 12:13 Dose: Not Given Magnesium Hydroxide (Milk Of Magnesia) 30 ml PO DAILY PRN PRN PRN Reason: Constipation Morphine Sulfate () 1 - 2 mg IV Q4H PRN PRN PRN Reason: Moderate Pain (pain scale 4-5) Ondansetron HCl (Zofran) 4 mg IV Q8H PRN PRN PRN Reason: Nausea Oxycodone HCl (Oxyir) 5 mg PO Q4H PRN PRN PRN Reason: Moderate Pain (pain scale 4-5) Last Admin: 08/30/17 21:46 Dose: 5 mg Pantoprazole Sodium (Protonix) 20 mg PO DAILY [facility] Last Admin: 08/31/17 08:35 Dose: 20 mg Psyllium Hydrophilic Mucilloid (Metamucil) 1 packet PO DAILY PRN PRN PRN Reason: CONSTIPATION Sodium Chloride () 5 - 30 ml IV UD PRN PRN Reason: SALINE FLUSH Medical Necessity - Tobacco Use Smoking Status: Never smoker Tobacco Use: Non-smoker Assessment/Plan All Active Problems Cellulitis (Acute) Severe sepsis (Acute) Leg pain, left (Acute) Left leg cellulitis (Acute) 1. Severe sepsis * Present on admission * Due to cellulitis * Clinically improved 2. Left lower extremity cellulitis * Improving * Seen by infectious disease who has changed the antibiotics over to cefazolin * To be discharged with oral antibiotics * Await final wound cultures which is showing mixed gram-positive organisms 3. Acute kidney disease versus chronic kidney disease progression * Creatinine unchanged, essentially * off of IVF * Nephrology following * Will need follow-up with nephrology as well as follow-up repeat ultrasound to evaluate the dromedary hump versus isoechoic mass in the right kidney 4. DVT prophylaxis * Poor control * Continue with sliding scale, scheduled log and Levemir. 5. DVT prophylaxis with heparin Code Visit Inpatient E&M: 32952 Subs Hosp L2
[2017-08-31 16:20] LABS: Bedside Glucose 182 mg/dL (70-110)
[2017-08-31] MEDS: oxyCODONE 5 MG Tablet PO (18:02)
[2017-08-31] MEDS: 0.9% NaCl Peripheral Flush Adult/Peds IV (21:16)
[2017-08-31 22:20] LABS: Bedside Glucose 116 mg/dL (70-110)
[2017-09-01 02:16] VITALS: BP 139/65; PULSE 72; RESP 16; TEMP 37; O2SAT 96
[2017-09-01 07:40] LABS: Bedside Glucose 101 mg/dL (70-110)
[2017-09-01 08:36] VITALS: BP 127/57; PULSE 66; RESP 18; TEMP 36.6; O2SAT 94
--- NOTE | 2017-09-01 08:36 | PCM.PN.REN ---
Patient Problems: Active and Suspected Problems Cellulitis (Acute) Severe sepsis (Acute) Subjective: redness, swelling, tenderness persists in LLE. Afebrile with improved leukocytosis. Renal panel pending from this morning. - Physical Exam General: Alert, Oriented x3, Cooperative Lungs: Clear to auscultation Cardiovascular: Regular rate Abdomen: Soft, Non Tender, Obese Extremities: Edema - mild LLE Skin: Rash Present - cellulitis, redness, tender, warm to touch LLE, - Psych/Mental Status: Normal Affect, Appropriate Vital Signs Temp Pulse Resp BP Pulse Ox 98.6 F 72 16 139/65 H 96 09/01/17 02:16 09/01/17 02:16 09/01/17 02:16 09/01/17 02:16 09/01/17 02:16 Oxygen Delivery Method Room Air Weight: 142.4 kg Body Mass Index (BMI) 49.1 Intake and Output for Last 24 Hours 08/30/17 08/31/17 09/01/17 23:59 23:59 23:59 Intake Total 3522 / 3522 5151 / 5151 1100 / 1100 Balance 3522 / 3522 5151 / 5151 1100 / 1100 Microbiology Past 72 Hours 08/29/17 20:21 Urine Culture - Final Urine, Clean Catch Mixed Gram Positive Organisms POC Glucose 09/01/17 08/31/17 08/31/17 07:37 21:21 16:14 POC Glucose 101 116 H 182 H 08/31/17 08/31/17 11:33 10:17 POC Glucose 182 H 191 H Medical Necessity - Tobacco Use Smoking Status: Never smoker Tobacco Use: Non-smoker Assessment/Plan All Active Problems Cellulitis (Acute) Severe sepsis (Acute) Leg pain, left (Acute) Left leg cellulitis (Acute) 1. Acute on chronic kidney disease stage II likely related to medication and cellulitis. Discontinued aldactone, GEENA inhibitor. Await labs from today. Creatinine baseline 1.2-1.4 with underlying diabetic kidney disease. Creatinine improved to 1.95 yesterday 2. Acute cellulitis left lower extremity continue IV antibiotic therapy. ID following. Vanco trough pending 3. Diabetes mellitus type 2 with poor diabetic control. Discontinue metformin and Jardance due to his acute renal failure. 4. Hypertention with stable blood pressure 5. Metabolic acidosis suspect due to renal failure, metformin. Await labs from today 6. Anemia monitor Follow up with me in office in 2 wks
[2017-09-01] MEDS: Aspirin 81 MG TAB.CHEW PO (08:39)
[2017-09-01] MEDS: amLODIPine 10 MG Tablet PO (08:39)
[2017-09-01] MEDS: Atorvastatin Calcium 40 MG Tablet PO (08:40)
[2017-09-01] MEDS: Pantoprazole Sodium 20 MG Tablet PO (08:40)
[2017-09-01] MEDS: Carvedilol 25 MG Tablet PO (08:41)
[2017-09-01] MEDS: Heparin Injection (Vial) 5,000 UNIT/ML VIAL 5000 UNIT SC (08:41)
[2017-09-01] MEDS: 0.9% NaCl Peripheral Flush Adult/Peds IV (08:59)
[2017-09-01] MEDS: Cefazolin 2 GM in 0.9% Normal Saline 100 ML IV (08:59)
--- NOTE | 2017-09-01 10:04 | PN_ITS ---
Patient Problems: Active and Suspected Problems Cellulitis (Acute) Severe sepsis (Acute) Subjective: left leg is feeling better Vitals/I&O's: Vital Signs Temp Pulse Resp BP Pulse Ox 36.6 C 66 18 127/57 H 94 09/01/17 08:36 09/01/17 08:36 09/01/17 08:36 09/01/17 08:36 09/01/17 08:36 Oxygen Delivery Method Room Air Weight: 142.4 kg Body Mass Index (BMI) 49.1 Intake and Output for Last 24 Hours 08/30/17 08/31/17 09/01/17 23:59 23:59 23:59 Intake Total 3522 / 3522 5151 / 5151 1100 / 1100 Balance 3522 / 3522 5151 / 5151 1100 / 1100 General: Alert, No apparent distress HEENT: Atraumatic, Normocephalic Extremities: Edema Skin: - - decreased erythema and pain of LLE. Microbiology Past 72 Hours 08/29/17 20:21 Urine, Clean Catch Urine Culture - Final Mixed Gram Positive Organisms Laboratory Results 08/31/17 10:17: POC Glucose 191 H 08/31/17 11:33: POC Glucose 182 H 08/31/17 16:14: POC Glucose 182 H 08/31/17 21:21: POC Glucose 116 H 09/01/17 07:37: POC Glucose 101 Current Medications Acetaminophen (Tylenol) 650 mg PO Q6H PRN PRN PRN Reason: Mild Pain (scale 0-3)/T>100.7 Last Admin: 08/31/17 08:32 Dose: 650 mg Amlodipine Besylate (Norvasc) 10 mg PO DAILY [facility] Last Admin: 09/01/17 08:39 Dose: 10 mg Aspirin (Aspirin, Baby) 81 mg PO DAILY@0800 [facility] Last Admin: 09/01/17 08:39 Dose: 81 mg Atorvastatin Calcium (Lipitor) 40 mg PO DAILY [facility] Last Admin: 09/01/17 08:40 Dose: 40 mg Bisacodyl (Dulcolax) 5 mg PO DAILY PRN PRN PRN Reason: Constipation Carvedilol (Coreg) 25 mg PO BID [facility] Last Admin: 09/01/17 08:41 Dose: 25 mg Dextrose (D50w Syringe) 0 gm IV X1 PRN; Protocol PRN Reason: Hypoglycemia Glucagon () 1 mg IM .X1 PRN PRN Reason: Hypoglycemia Heparin Sodium (Porcine) (Heparin Na) 5,000 unit SC Q12 [facility] Last Admin: 09/01/17 08:41 Dose: 5,000 u Hydralazine HCl (Apresoline Iv) 5 mg IV Q6H PRN PRN PRN Reason: BLOOD PRESSURE Cefazolin Sodium 2 gm/ Sodium (Chloride) 110 mls @ 150 mls/hr IV Q12 [facility] Last Admin: 09/01/17 08:59 Dose: 150 mls/hr Insulin Detemir (Levemir (Bkc)) 150 units SC DAILY [facility] Last Admin: 09/01/17 08:41 Dose: 150 units Insulin Human Lispro (Humalog Kwikpen (Bkc)) 50 unit SC TIDCM [facility] Last Admin: 09/01/17 08:39 Dose: Not Given Insulin Human Lispro (Humalog Kwikpen (Bkc)) 0 unit SQ ACHS [facility] PRN Reason: Protocol Last Admin: 09/01/17 07:45 Dose: Not Given Magnesium Hydroxide (Milk Of Magnesia) 30 ml PO DAILY PRN PRN PRN Reason: Constipation Morphine Sulfate () 1 - 2 mg IV Q4H PRN PRN PRN Reason: Moderate Pain (pain scale 4-5) Ondansetron HCl (Zofran) 4 mg IV Q8H PRN PRN PRN Reason: Nausea Oxycodone HCl (Oxyir) 5 mg PO Q4H PRN PRN PRN Reason: Moderate Pain (pain scale 4-5) Last Admin: 08/31/17 18:02 Dose: 5 mg Pantoprazole Sodium (Protonix) 20 mg PO DAILY [facility] Last Admin: 09/01/17 08:40 Dose: 20 mg Psyllium Hydrophilic Mucilloid (Metamucil) 1 packet PO DAILY PRN PRN PRN Reason: CONSTIPATION Sodium Chloride () 5 - 30 ml IV UD PRN PRN Reason: SALINE FLUSH Last Admin: 09/01/17 08:59 Dose: 10 ml Medical Necessity - Tobacco Use Smoking Status: Never smoker Tobacco Use: Non-smoker Assessment/Plan All Active Problems Cellulitis (Acute) Severe sepsis (Acute) Leg pain, left (Acute) Left leg cellulitis (Acute) 1. Severe sepsis * Present on admission * Due to cellulitis * Clinically improved 2. Left lower extremity cellulitis * Improving * Seen by infectious disease who has changed the antibiotics over to cefazolin * To be discharged with oral antibiotics * Await final wound cultures which is showing mixed gram-positive organisms * DW Dr. Kingsley: change to Keflex 500 TID. 3. Acute kidney disease versus chronic kidney disease progression * Creatinine unchanged, essentially * off of IVF * Nephrology following * Will need follow-up with nephrology as well as follow-up repeat ultrasound to evaluate the dromedary hump versus isoechoic mass in the right kidney * Follow up with Dr. Raymundo as outpt. 4. DVT prophylaxis * Poor control, but improved today. * Continue with sliding scale, scheduled log and Levemir. 5. DVT prophylaxis with heparin
--- NOTE | 2017-09-01 10:08 | PCM.DC ---
- Discharge Diagnoses Current Active Problems: Current Active and Chronic Problems Cellulitis (Acute) Severe sepsis (Acute) You will use the following diet at home:: Calorie/Carbohydrate Controlled (specify 1200, 1400, etc) - 1800 kcal/day, Cardiac Your food should be the consistency of: Regular Your liquids should be the consistency of: Regular/Thin Discharge Activity: Return to Normal Activity Weight Bearing Status: Full weight bearing Keep extremity elevated above heart level: Left Leg Call your doctor if your incision/area has: Increased Pain/ Swelling, Increased Redness Call your doctor if you observe: Fever of 101 or Higher Allergies/Adverse Reactions: Allergies pravastatin sodium [From Pravachol] Adverse Reaction (Intermediate, Verified 08/29/17 11:32) Other ACHY MUSCLES Medications to take at Discharge Amlodipine [Norvasc] 10 mg PO DAILY 10/16/15 Aspirin [Aspirin, Baby] 81 mg PO DAILY@0800 10/16/15 Atorvastatin Calcium [Lipitor] 40 mg PO DAILY 10/16/15 Carvedilol [Coreg (Beta Kody)] 25 mg PO BID 08/29/17 Insulin Glargine,Hum.rec.anlog [T[place]jeo Solostar] 150 unit SQ DAILY 08/29/17 Insulin Lispro [Humalog Tyree Kwikpen] 50 unit SQ TIDCM 08/29/17 Omeprazole [Prilosec] 20 mg PO DAILY 08/29/17 Cephalexin [Keflex] 500 mg PO Q8 #21 cap 09/01/17 Oxycodone [Oxyir] 5 mg PO Q8H PRN 2 Days #6 tablet 09/01/17 The following prescriptions were given: Cephalexin [Keflex] 500 mg PO Q8 #21 cap Oxycodone [Oxyir] 5 mg PO Q8H PRN 2 Days #6 tablet PRN Reason: Severe Pain (6-10/10) Primary Care Physician: Betty Farrell MD [Primary Care Provider] - Within 2 Weeks Please Follow Up With: Catherine Raymundo DO - chronic kidney disease When: 2-4 weeks Proposed Discharge Date: 09/01/17
--- NOTE | 2017-09-01 10:10 | PCM.DC.SUM ---
Discharge Date and Diagnosis - Problem List Patient Problems: Active and Suspected Problems Cellulitis (Acute) Severe sepsis (Acute) Date of Admission: 08/29/17 Date of Discharge: 09/01/17 - Primary Discharge Diagnosis Active and Suspected Problems Cellulitis (Acute) Severe sepsis (Acute) - Secondary Discharge Diagnosis Chronic Problems Diabetes mellitus out of control (Chronic) Hyperlipidemia (Chronic) Benign essential hypertension (Chronic) Morbid obesity (Chronic) Coronary artery arteriosclerosis (Chronic) Lymphedema of left leg (Chronic) Left leg swelling (Chronic) Prostatism (Chronic) GERD (gastroesophageal reflux disease) (Chronic) Chronic venous insufficiency (Chronic) Edema of left lower extremity (Chronic) Hospital Course and Treatment Imaging Results: Clinical Impression(s) from Imaging Studies Chest X-Ray 08/29/17 12:19 IMPRESSION: Mild cardiomegaly. Postoperative changes of median sternotomy. No focal consolidation. Electronically Signed: Jakub Manrique DO at 14:03 EDT Tel , Service support , Renal Ultrasound 08/29/17 14:43 IMPRESSION: No evidence of hydronephrosis. Punctate stone right kidney. Probable Dromedary hump versus 3.7 cm isoechoic mass right kidney recommend consideration for follow-up study and/or comparison to a prior study if possible. Electronically Signed: Destini Fisher MD at 23:44 EDT Tel , Service support , Operations: None Procedures: None Summary of Care Provided: The patient is a 52 year old M presents with LLE cellulitis. Improved with cefazolin. Patient will be discharged with keflex. 1. Severe sepsis Present on admission Due to cellulitis Clinically improved 2. Left lower extremity cellulitis Improving Seen by infectious disease who has changed the antibiotics over to cefazolin To be discharged with oral antibiotics Await final wound cultures which is showing mixed gram-positive organisms DW Dr. Kingsley: change to Keflex 500 TID. 3. Acute kidney disease versus chronic kidney disease progression Creatinine unchanged, essentially off of IVF Nephrology following Will need follow-up with nephrology as well as follow-up repeat ultrasound to evaluate the dromedary hump versus isoechoic mass in the right kidney Follow up with Dr. Raymundo as outpt.[] Discharge Diet: Low fat/ Low Cholesterol, 1800 Calorie Control Diet Discharge Activity: Return to Normal Activity Weight Bearing Status: Full weight bearing Keep extremity elevated above heart level: Left Leg Call your doctor if your incision/area has: Increased Pain/ Swelling, Increased Redness Call your doctor if you observe: Fever of 101 or Higher Home Medications: Medications to take at Discharge Amlodipine [Norvasc] 10 mg PO DAILY 10/16/15 Aspirin [Aspirin, Baby] 81 mg PO DAILY@0800 10/16/15 Atorvastatin Calcium [Lipitor] 40 mg PO DAILY 10/16/15 Carvedilol [Coreg (Beta Kody)] 25 mg PO BID 08/29/17 Insulin Glargine,Hum.rec.anlog [Toujeo Solostar] 150 unit SQ DAILY 08/29/17 Insulin Lispro [Humalog Tyree Kwikpen] 50 unit SQ TIDCM 08/29/17 Omeprazole [Prilosec] 20 mg PO DAILY 08/29/17 Cephalexin [Keflex] 500 mg PO Q8 #21 cap 09/01/17 Oxycodone [Oxyir] 5 mg PO Q8H PRN 2 Days #6 tablet 09/01/17 Following Prescrptions Were Given to Patient: Cephalexin [Keflex] 500 mg PO Q8 #21 cap Oxycodone [Oxyir] 5 mg PO Q8H PRN 2 Days #6 tablet PRN Reason: Severe Pain (6-10/10) Primary Care Physician: Betty Farrell MD [Primary Care Provider] - Within 2 Weeks Please Follow Up With: Catherine Raymundo DO - chronic kidney disease When: 2-4 weeks Disposition: Home Minutes spent on discharge:: 32 Patient Condition:: Good Medical Necessity - Tobacco Use Smoking Status: Never smoker Tobacco Use: Non-smoker Meaningful Use Info Meaningful Use Diagnoses (Choose all that apply): None applicable Code Visit Inpatient E&M: 09451 Disch Hosp
--- NOTE | 2017-09-01 10:19 | DS.PCM_ITS ---
Discharge Date and Diagnosis - Problem List Patient Problems: Active and Suspected Problems Cellulitis (Acute) Severe sepsis (Acute) Date of Admission: 08/29/17 Date of Discharge: 09/01/17 - Primary Discharge Diagnosis Active and Suspected Problems Cellulitis (Acute) Severe sepsis (Acute) - Secondary Discharge Diagnosis Chronic Problems Diabetes mellitus out of control (Chronic) Hyperlipidemia (Chronic) Benign essential hypertension (Chronic) Morbid obesity (Chronic) Coronary artery arteriosclerosis (Chronic) Lymphedema of left leg (Chronic) Left leg swelling (Chronic) Prostatism (Chronic) GERD (gastroesophageal reflux disease) (Chronic) Chronic venous insufficiency (Chronic) Edema of left lower extremity (Chronic) Hospital Course and Treatment Imaging Results: Clinical Impression(s) from Imaging Studies Chest X-Ray 08/29/17 12:19 IMPRESSION: Mild cardiomegaly. Postoperative changes of median sternotomy. No focal consolidation. Electronically Signed: Jakub Manrique DO at 14:03 EDT Tel , Service support , Renal Ultrasound 08/29/17 14:43 IMPRESSION: No evidence of hydronephrosis. Punctate stone right kidney. Probable Dromedary hump versus 3.7 cm isoechoic mass right kidney recommend consideration for follow-up study and/or comparison to a prior study if possible. Electronically Signed: Destini Fisher MD at 23:44 EDT Tel , Service support , Operations: None Procedures: None Summary of Care Provided: The patient is a 52 year old M presents with LLE cellulitis. Improved with cefazolin. Patient will be discharged with keflex. 1. Severe sepsis * Present on admission * Due to cellulitis * Clinically improved 2. Left lower extremity cellulitis * Improving * Seen by infectious disease who has changed the antibiotics over to cefazolin * To be discharged with oral antibiotics * Await final wound cultures which is showing mixed gram-positive organisms * DW Dr. Kingsley: change to Keflex 500 TID. 3. Acute kidney disease versus chronic kidney disease progression * Creatinine unchanged, essentially * off of IVF * Nephrology following * Will need follow-up with nephrology as well as follow-up repeat ultrasound to evaluate the dromedary hump versus isoechoic mass in the right kidney * Follow up with Dr. Raymundo as outpt.[] Discharge Diet: Low fat/ Low Cholesterol, 1800 Calorie Control Diet Discharge Activity: Return to Normal Activity Weight Bearing Status: Full weight bearing Keep extremity elevated above heart level: Left Leg Call your doctor if your incision/area has: Increased Pain/ Swelling, Increased Redness Call your doctor if you observe: Fever of 101 or Higher Home Medications: Medications to take at Discharge Amlodipine [Norvasc] 10 mg PO DAILY 10/16/15 Aspirin [Aspirin, Baby] 81 mg PO DAILY@0800 10/16/15 Atorvastatin Calcium [Lipitor] 40 mg PO DAILY 10/16/15 Carvedilol [Coreg (Beta Kody)] 25 mg PO BID 08/29/17 Insulin Glargine,Hum.rec.anlog [Toujeo Solostar] 150 unit SQ DAILY 08/29/17 Insulin Lispro [Humalog Tyree Kwikpen] 50 unit SQ TIDCM 08/29/17 Omeprazole [Prilosec] 20 mg PO DAILY 08/29/17 Cephalexin [Keflex] 500 mg PO Q8 #21 cap 09/01/17 Oxycodone [Oxyir] 5 mg PO Q8H PRN 2 Days #6 tablet 09/01/17 Following Prescrptions Were Given to Patient: Cephalexin [Keflex] 500 mg PO Q8 #21 cap Oxycodone [Oxyir] 5 mg PO Q8H PRN 2 Days #6 tablet PRN Reason: Severe Pain (6-10/10) Primary Care Physician: Betty Farrell MD [Primary Care Provider] - Within 2 Weeks Please Follow Up With: Catherine Raymundo DO - chronic kidney disease When: 2-4 weeks Disposition: Home Minutes spent on discharge:: 32 Patient Condition:: Good Medical Necessity - Tobacco Use Smoking Status: Never smoker Tobacco Use: Non-smoker Meaningful Use Info Meaningful Use Diagnoses (Choose all that apply): None applicable Code Visit Inpatient E&M: 19557 Disch Hosp
--- NOTE | 2017-09-01 10:54 | CASEMGMT ---
SCOOTER REYNOLDS received update from RN that patient is requesting script for straight cane. SCOOTER REYNOLDS updated Dr. Schmitz and obtained script for the patient. Patient states that he will take script himself to [facility]. Patient denied further discharge needs at this time. SCOOTER REYNOLDS will continue to follow patient and plan for a safe discharge.
--- NOTE | 2017-09-01 11:07 | PN.ID_ITS ---
Patient Problems: Active and Suspected Problems Cellulitis (Acute) Severe sepsis (Acute) Subjective: Feeling better, leg less sore, no fever, no n/v/d. - Physical Exam General: Alert, Cooperative, No apparent distress Lungs: Clear to auscultation, Normal air movement Cardiovascular: Regular rate, Regular Rhythm Abdomen: Soft, Non Tender, Non-Distended Skin: Rash Present - improving L sinclair/calf redness/swelling/pain Vital Signs Temp Pulse Resp BP Pulse Ox 97.8 F 66 18 127/57 H 94 09/01/17 08:36 09/01/17 08:36 09/01/17 08:36 09/01/17 08:36 09/01/17 08:36 Oxygen Delivery Method Room Air Weight: 142.4 kg Body Mass Index (BMI) 49.1 Intake and Output for Last 24 Hours 08/30/17 08/31/17 09/01/17 23:59 23:59 23:59 Intake Total 3522 / 3522 5151 / 5151 1100 / 1100 Balance 3522 / 3522 5151 / 5151 1100 / 1100 Microbiology Past 72 Hours 08/29/17 20:21 Urine Culture - Final Urine, Clean Catch Mixed Gram Positive Organisms Laboratory Tests Past 24 Hrs 09/01/17 10:45 Sodium Pending Potassium Pending Chloride Pending Carbon Dioxide Pending BUN Pending Creatinine Pending Est GFR (MDRD) Af Amer Pending Est GFR (MDRD) Non-Af Pending BUN/Creatinine Ratio Pending Glucose Pending Calcium Pending Phosphorus Pending Albumin Pending POC Glucose 09/01/17 08/31/17 08/31/17 07:37 21:21 16:14 POC Glucose 101 116 H 182 H 08/31/17 11:33 POC Glucose 182 H Medical Necessity - Tobacco Use Smoking Status: Never smoker Tobacco Use: Non-smoker Route of nutrition/ use of supplements: [] Nutritional Intake: [] IV Site: [] Burt Catheter: [] - Assessment/Plan Antibiotics: [] Assessment/Plan: [] Active and Suspected Problems Cellulitis (Acute) Severe sepsis (Acute) LLE cellulitis - improving; redness appears clinical cytogenetics director today. Narrowed vanc/zosyn to cefazolin. No DVT seen on doppler. Much improved, plan on d/c home on po keflex 500mg tid for one more week. TALITA on CKD - neph following. Cr pending today. Will follow, d/w primary team
[2017-09-01 11:22] LABS: Albumin, Serum 2.1 g/dL (3.2-5.0); BUN 30 mg/dL (7-18); BUN/Creat Ratio 17.9 RATIO (10-20); Calcium,Total 7.9 mg/dL (8.5-10.1); Chloride 108 mmol/L (98-107); Creatinine, Serum 1.68 mg/dL (0.70-1.30); EST Glomerular Filtration Rate 45 mL/min (>60); Est Glom Filt Rate - Afr Amer 55 mL/min (>60); Glucose 214 mg/dL (74-106); Phosphorus 2.9 mg/dL (2.5-4.9); Potassium 4.6 mmol/L (3.5-5.1); Sodium Level 134 mmol/L (136-145)
== END 2017-09-01 11:28 | disposition home or self-care (01) | DRG 872 ==
LOC: ED 13:42 → MS3 14:44
PROVIDERS: Internal Medicine Nephrology; Admitting Provider Internal Medicine; Emergency Provider Emergency Medicine; Family Provider Internal Medicine; PCP Internal Medicine
DX: A41.9 Sepsis, unspecified organism (principal); L03.116 Cellulitis of left lower limb; E87.1 Hypo-osmolality and hyponatremia; Z68.42 Body mass index [BMI] 45.0-49.9, adult; E87.2 Acidosis; N17.9 Acute kidney failure, unspecified; I25.10 Atherosclerotic heart disease of native coronary artery without angina pectoris; R65.20 Severe sepsis without septic shock; I10 Essential (primary) hypertension; E66.01 Morbid (severe) obesity due to excess calories; N18.2 Chronic kidney disease, stage 2 (mild); E78.5 Hyperlipidemia, unspecified; E11.22 Type 2 diabetes mellitus with diabetic chronic kidney disease; I12.9 Hypertensive chronic kidney disease with stage 1 through stage 4 chronic kidney disease, or unspecified chronic kidney disease; K21.9 Gastro-esophageal reflux disease without esophagitis; I87.2 Venous insufficiency (chronic) (peripheral); N40.0 Benign prostatic hyperplasia without lower urinary tract symptoms; Z79.4 Long term (current) use of insulin; Z95.1 Presence of aortocoronary bypass graft; I89.0 Lymphedema, not elsewhere classified; E11.65 Type 2 diabetes mellitus with hyperglycemia; D64.9 Anemia, unspecified
CPT/HCPCS: 36415; 71045; 76770; 80048; 80053; 80069; 81001; 82570; 82962; 83605; 83880; 84300; 84484; 85025; 85610; 85730; 87040; 87086; 87641; 93005; 93971; 99285; J7030; J7040; A4216

== ENCOUNTER 2017-09-29 07:40 | Outpatient (RCR) | payer OTHER, MEDICARE, SELFPAY ==
--- NOTE | 2017-09-30 10:30 | HP.OTEVAL_ITS ---
Patient's Visit Information JAKE BRIZUELA is a 52 year old M, referred to Occupational Therapy by Betty Farrell, with a diagnosis of left LE lymphedema. Date of Evaluation: 09/29/17 Occupational Therapist: Adele Smith, TATIANA/Isreal, CHT - Subjective Subjective: PT attends OT with Dx of LE lymphedema. Pt states he had open heart sx years ago and he has had swelling in left LE sinces. PT states he has had custom compression socks but now his insurance will not cover the garments. He is hopeful to find compression garment alternative to mtg his swelling. Pt is currently using a compression pump 1x a day but no compression on his leg during the day. - Pain left LE 2 Pain Intensity Range: 0, 2 - Lymphedema (Circumferential Measure) Ankle: right 27cm left 33cm Lower calf: right 35cm left 41cm Largest calf: right 48cm left 57cm Below knee: right 41cm left 48cm Lower Exremity Comments: pt left LE firm to touch- red and demo skin texture changes - Sensation Sensation Comments: denies - Lower Limb Functional Index Lower Extremity Functional Score: 31 - Goals Demonstrate a 20% reduction in edema by d/c: Yes Demonstrate adequate knowledge of self-bangaging by 1st week: Yes Demonstrate adequate knowledge skin care/prec by 2nd week: Yes Demonstrate adequate knowledge therapeutic exercises by d/c: Yes Select approp compression garment w/donning/care/wear by d/c: Yes Voice need to replace compression garment every 4-6mo by dc: Yes - Rehabilitation General Assessment: pt demo need for ed. on lymphedema mtg., compression alternatives, and ex. for life long mtg of lymphedema. pt was ed. today on compression alternatives as velcro closer compression garments. pt is concerned with cost and is worried about how expensive all compression devices are. pt did agree on use of [employer] compression garment. Therapist gave pt information on web sites and DME suppliers to get compression garment from. Rehabilitation Potential: Good - Anticipated Interventions Anticipated Interventions: Manual Lymph Drainage, Education re Life-long lymphedema Management, Education re Correct Donning Tech,Care&Wearing Sched Comp Garments, Home Program - Visit Plan Frequency: 1x/Week Duration: 2 Weeks TEXT: Thank you for the opportunity to evaluate your patient. For Medicare and Medicare HMO plans, please review the plan of care and approve it. It will need to be FAXED BACK to us at [phone] for Medicare purposes. Please let me know if there are questions or concerns regarding this plan of care. Physician Signature: Date:
--- NOTE | 2017-11-17 08:44 | HP.OTDCNRP_ITS ---
HP - Discharge Summary - Patient Information JAKE BRIZUELA was seen in my office for initial evaluation on 09/29/17. The following Plan of Care was established for this patient: Initial Frequency: 1x/Week Initial Duration: 2 Weeks - Anticipated Interventions Anticipated Interventions: Manual Lymph Drainage, Education re Life-long lymphedema Management, Education re Correct Donning Tech,Care&Wearing Sched Comp Garments, Home Program This patient was last seen in our office 09/29/17. Pertinent comments regarding their Occupational therapy will appear below: phone call from [facility] from [facility] [place] 10/12/2017 - states [facility] informed pt insurance does not pay for compression socks. Pt is going to try to save money to pay for Farrow wrap/ compression socks and use them with his compression pump. At this time pt has not scheduled any further apts and is D/C at this time. [ End ] At this point I will be discontinuing this patient from occupational therapy. I would be happy to see this patient again in the future if found appropriate by the physician. Thank you! Adele Smith, OTR/L, CHT
== END 2017-09-29 19:00 | disposition home or self-care (01) ==
LOC: OT 07:40
PROVIDERS: Family Provider Internal Medicine; PCP Internal Medicine; Visit Provider Internal Medicine
DX: I89.0 Lymphedema, not elsewhere classified (principal); R60.0 Localized edema
CPT/HCPCS: 97166

== ENCOUNTER 2017-10-03 12:57 | Emergency (ER) | payer OTHER, MEDICARE, SELFPAY ==
[2017-10-03 12:58] VITALS: BP 182/83; PULSE 70; RESP 16; TEMP 36.8; O2SAT 97; BMI 49.0
--- NOTE | 2017-10-03 13:30 | EKG12_ITS ---
Test Reason : CP Blood Pressure : / mmHG Vent. Rate : 068 BPM Atrial Rate : 068 BPM P-R Int : 154 ms QRS Dur : 100 ms QT Int : 458 ms P-R-T Axes : 042 113 075 degrees QTc Int : 487 ms Normal sinus rhythm Left posterior fascicular block Nonspecific ST abnormality Prolonged QT Abnormal ECG Confirmed by BENJI QUIROZ, VIK ([id number]), editor greeting card JUVENTINO RAY ([id number]) on 10/06/2017 2:36:49 PM Referred By: Betty Farrell Confirmed By:VIK LEBLANC MD
--- NOTE | 2017-10-03 13:30 | RAD_ITS ---
STUDY: X-RAY CHEST REASON FOR EXAM: Male, 52 years old. Chest pain. TECHNIQUE: Single AP portable view of the chest. COMPARISON: Comparison is made with prior study dated August 29, 2017. FINDINGS: EKG electrodes are seen. Stable mild increased markings in the lingular segment of the left upper lobe suggestive of scarring. No acute abnormality is seen. There is no demonstrated pleural abnormality. Sternal cerclage wires and vascular clips are present from a prior sternotomy and coronary artery bypass graft procedure (CABG). Moderate cardiomegaly. Normal mediastinum and jordon. Normal visualized pulmonary arteries. Normal visualized aortic arch and descending thoracic aorta. Normal visualized thoracic spine. Normal visualized ribs, clavicles, and shoulders. There is no demonstrated abnormality of the visualized soft tissue structures of the upper abdomen. RAD/Chest 1 View (Portable) IMPRESSION: Moderate cardiomegaly. Findings suggest a mild lingular scarring. Electronically Signed: Cale Strong MD at 13:54 EDT Tel [phone], Service support ,
[2017-10-03 13:54] LABS: Absolute Lymphocyte Count 1.87 X10^3/ul (0.83-4.51); Absolute Neutrophil Count 5.6 X10^3/uL (2.0-7.7); Basophil# 0.04 X10^3/uL; Basophil% 0.5 % (0-1); Eosinophil# 0.19 X10^3/uL; Eosinophils% 2.3 % (0-5); Hematocrit 33.6 % (40-54); Hemoglobin 10.2 g/dl (13.0-16.5); Lymphocyte # 1.87 X10^3/ul (4.0); Lymphocyte % 23.1 % (19-41); Mean Corp Hgb Conc 30.4 g/gl (32-36); Mean Corpuscular Hgb 24.2 pg (27.0-32.0); Mean Corpuscular Volume 79.8 fL (80-94); Monocyte# 0.44 X10^3/uL; Monocyte% 5.4 % (0-10); Neutrophil # 5.55 X10^3/uL (2.7-7.7); Neutrophil % 68.6 % (47-70); Platelet Count 285 K/mm3 (150-450); RBC Distribution Width CV 15.9 % (11.6-14.6); RBC Distribution Width SD 46.2 fl (35.1-43.9); Red Blood Count 4.21 M/mm3 (4.6-6.2); White Blood Count 8.1 K/mm3 (4.4-11.0)
[2017-10-03 13:55] LABS: POSITIVE COUNT NO; POSITIVE DIFFERENTIAL NO; POSITIVE MORPHOLOGY NO
[2017-10-03 13:58] LABS: Anion Gap 9 (5-15); BUN 23 mg/dL (7-18); BUN/Creat Ratio 17.2 RATIO (10-20); Calcium,Total 8.5 mg/dL (8.5-10.1); Chloride 109 mmol/L (98-107); Creatinine, Serum 1.34 mg/dL (0.70-1.30); EST Glomerular Filtration Rate 59 mL/min (>60); Est Glom Filt Rate - Afr Amer 71 mL/min (>60); Estimated Creatinine Clearance 58.92 ml/min; Glucose 181 mg/dL (74-106); Sodium Level 138 mmol/L (136-145)
[2017-10-03] MEDS: 0.9% Normal Saline 1,000 ML 150 ML IV (14:06)
[2017-10-03] MEDS: Aspirin 81 MG TAB.CHEW 243 MG PO (14:06)
[2017-10-03 14:09] VITALS: BP 171/75; PULSE 65; RESP 20; O2SAT 96
[2017-10-03 14:24] LABS: BNP,B-Type NATRIURETIC PEPTIDE 391.6 pg/mL (0-100)
[2017-10-03 15:05] VITALS: BP 178/75; PULSE 62; RESP 16; O2SAT 95
--- NOTE | 2017-10-03 15:19 | ED.VISSUMM ---
- ER Visit Summary Date of Service: 10/03/17 Chief Complaint: Chest pain History of Present Illness: The patient is a 52 M with a history of coronary disease and 5 way bypass surgery in 2013. He had a cardiac stent prior to that. Patient states he woke at 4 AM this morning short of breath. He felt better after he sat upright and try to calm himself. He states he gets chest heaviness in his chest feels numb whenever this shortness of breath occurs. It seems to be occurring with exertion now and better at rest. Physical Examination: Blood pressure is 182/83, other vitals normal. Head neck examination is unremarkable. Heart is regular rate and rhythm. Lung sounds are clear. Abdomen is soft nontender. Lower external examination was chronic lower leg edema. Left leg is swollen more than right patient states this is chronic since his heart surgery. Test Results: EKG is sinus at [address] change. Portable chest x-ray shows moderate cardiomegaly and mild scarring. CBC reveals normal white count with hemoglobin of 10.2. Chemistry studies reveal BUN 23 creatinine 1.34. Glucose is 181. Troponin is less than 0.015. BNP is 391. Emergency Department Course and Treatment: Patient was given aspirin on arrival here. He has had no further episodes of chest pain. Patient does not have a history of cardiac disease and I am unable to confirm his last stress test. I recommended observation overnight for cycling of cardiac enzymes but he is declining. He did agree to stay for 3 hour rule out. Repeat EKG is sinus at 61 bpm with no acute ST change. Repeat troponin remains less than 0.015. His blood pressure did remain elevated here. He is ordered a dose of hydralazine. He will monitor his blood pressures at home. He is encouraged to follow-up with his options trader as soon as possible. If he has any worsening symptoms or concerns he is encouraged to return to the emergency room immediately. He voices understanding and agreement. Treatment Plan: [] Disposition: Discharge Impression: Chest pain This note was generated with [employer] dictation software. It may contain incorrect words, spelling, and punctuation that were not noted in review of the chart prior to signing ED Disposition - Plan for ED Patient: Chief Complaint: Chest Pain Referrals: Betty Farrell MD [Primary Care Provider] -
--- NOTE | 2017-10-03 16:15 | EKG12_ITS ---
Test Reason : CP REPEAT Blood Pressure : / mmHG Vent. Rate : 061 BPM Atrial Rate : 061 BPM P-R Int : 160 ms QRS Dur : 098 ms QT Int : 476 ms P-R-T Axes : 045 113 095 degrees QTc Int : 479 ms Normal sinus rhythm Left posterior fascicular block Nonspecific T wave abnormality Prolonged QT Abnormal ECG Confirmed by BENJI QUIROZ, VIK ([id number]), editor at large JUVENTINO RAY ([id number]) on 10/06/2017 2:55:11 PM Referred By: Betty Farrell Confirmed By:VIK LEBLANC MD
--- NOTE | 2017-10-03 17:00 | DCINST.ED_ITS ---
ED Disposition - Plan for ED Patient: Disposition: Home or Assisted Living Chief Complaint: Chest Pain Instructions: ED Chest Pain Angina Stable Referrals: Betty Farrell MD [Primary Care Provider] - Additional Instructions: Follow-up with your commercial loan collection officer as soon as possible. Return to ED immediately for any worsening symptoms or concerns.
[2017-10-03 17:01] VITALS: BP 167/73; PULSE 63; RESP 19; O2SAT 96
[2017-10-03] MEDS: hydrALAZINE 20 MG/ML Vial 10 MG IV (17:06)
[2017-10-03 17:31] VITALS: BP 178/78; PULSE 68; RESP 16; O2SAT 96
== END 2017-10-03 17:31 | disposition home or self-care (01) ==
PROVIDERS: Emergency Provider Emergency Medicine; Family Provider Internal Medicine; PCP Internal Medicine
DX: R07.9 Chest pain, unspecified (principal); I25.10 Atherosclerotic heart disease of native coronary artery without angina pectoris; R60.0 Localized edema; I51.7 Cardiomegaly; E11.9 Type 2 diabetes mellitus without complications; I10 Essential (primary) hypertension; K21.9 Gastro-esophageal reflux disease without esophagitis; Z79.82 Long term (current) use of aspirin; Z79.4 Long term (current) use of insulin; Z79.899 Other long term (current) drug therapy; Z95.1 Presence of aortocoronary bypass graft; Z95.5 Presence of coronary angioplasty implant and graft
CPT/HCPCS: 71045; 80048; 83880; 84484; 85025; 93005; 96361; 96374; 99284; J7030; A4216

== ENCOUNTER 2017-10-18 09:20 | Inpatient (IN) | payer OTHER, MEDICARE, SELFPAY ==
[2017-10-18] VITALS (12 sets, daily range): BP systolic 156–175; BP diastolic 68–94; PULSE 64–71; RESP 16–21; TEMP 36.5–36.8; O2SAT 94–97; BMI 50.1; BMI 52.6; BMI 52.7
--- NOTE | 2017-10-18 09:42 | EKG12_ITS ---
Test Reason : SOB Blood Pressure : / mmHG Vent. Rate : 064 BPM Atrial Rate : 064 BPM P-R Int : 156 ms QRS Dur : 100 ms QT Int : 458 ms P-R-T Axes : 039 077 114 degrees QTc Int : 472 ms Normal sinus rhythm Nonspecific T wave abnormality Prolonged QT Abnormal ECG When compared with ECG of 03-OCT-2017 16:10, Left posterior fascicular block is no longer Present T wave inversion more evident in Lateral leads Confirmed by SAMANTA LIMA ([id number]), editor magazine JUVENTINO RAY ([id number]) on 10/27/2017 12:35:31 PM Referred By: DEREK Confirmed By:SAMANTA LIMA
--- NOTE | 2017-10-18 09:45 | ED.DCSUM_ITS ---
- ER Visit Summary Date of Service: 10/18/17 Chief Complaint: Shortness of breath History of Present Illness: The patient is a 52 M who presents with shortness of breath that has been getting progressively worse over the past 3 weeks. Patient states his breathing is worse with laying flat. Patient states he has been having to sleep in a recliner. Patient states that his breathing is worse after exertion initially but then improves after coughing. Patient denies any fevers or chills. Patient admits to some discomfort over his epigastric area when he walks and exerts himself. Patient also admits to increased swelling of his lower extremities as well as his hands. Patient denies any paresthesias or weakness. Physical Examination: Vital signs are stable. Patient is afebrile. Patient is in no acute distress. Oral mucosa is pink and moist. Neck is supple. Trachea is midline. There is no JVD noted. Heart was regular rate and rhythm. Lungs showed a few bibasilar rales. There is good respiratory effort noted. Abdomen is soft. Bowel sounds are normal. There is no tenderness noted. Extremities were intact. There is 2+ pitting edema of the lower extremities bilaterally, worse on the left. Test Results: EKG showed a normal sinus rhythm with a rate of 64. There are no acute ST or T wave changes noted. CBC showed a mild anemia with a hemoglobin of 9.3 and hematocrit 31.0. Basic metabolic profile showed mildly elevated creatinine of 1.32. BNP was also slightly elevated at 261.3. Chest x-ray shows cardiomegaly and mild congestive heart failure. Emergency Department Course and Treatment: Patient was given Lasix and nitroglycerin paste here. Case was discussed with Dr. Schmitz. He was in to evaluate the patient will admit the patient to his service. Disposition: Admit to hospital Impression: New onset congestive heart failure This note was generated with [employer] dictation software. It may contain incorrect words, spelling, and punctuation that were not noted in review of the chart prior to signing ED Disposition - Plan for ED Patient: Disposition: Acute Care Hospital [facility] Chief Complaint: Shortness of Breath Diagnosis: Congestive heart failure of unknown etiology Referrals: Betty Farrell MD [Primary Care Provider] -
[2017-10-18 10:14] LABS: Absolute Lymphocyte Count 1.77 X10^3/ul (0.83-4.51); Basophil# 0.03 X10^3/uL; Basophil% 0.5 % (0-1); Eosinophil# 0.23 X10^3/uL; Eosinophils% 3.5 % (0-5); Hemoglobin 9.3 g/dl (13.0-16.5); Lymphocyte # 1.77 X10^3/ul (4.0); Lymphocyte % 26.6 % (19-41); Mean Corpuscular Hgb 23.8 pg (27.0-32.0); Mean Corpuscular Volume 79.5 fL (80-94); Mean Platelet Vol. 9.2 fl (6.2-12.0); Monocyte# 0.58 X10^3/uL; Monocyte% 8.7 % (0-10); Neutrophil # 4.01 X10^3/uL (2.7-7.7); Neutrophil % 60.2 % (47-70); Platelet Count 236 K/mm3 (150-450); RBC Distribution Width CV 16.2 % (11.6-14.6); RBC Distribution Width SD 46.3 fl (35.1-43.9); White Blood Count 6.7 K/mm3 (4.4-11.0)
[2017-10-18 10:15] LABS: POSITIVE COUNT NO; POSITIVE DIFFERENTIAL NO; POSITIVE MORPHOLOGY NO
--- NOTE | 2017-10-18 10:17 | RAD_ITS ---
STUDY: X-RAY CHEST REASON FOR EXAM: Male, 52 years old. Shortness of breath/dyspnea. TECHNIQUE: PA and lateral views of the chest. COMPARISON: Comparison is made with prior study dated October 03, 2017. FINDINGS: EKG electrodes are seen. There is evidence of vascular congestion and mild degree of CHF. Blunting of both costophrenic angles posteriorly. Sternal cerclage wires and vascular clips are present from a prior sternotomy and coronary artery bypass graft procedure (CABG). Moderate cardiomegaly. Normal mediastinum and jordon. Normal visualized pulmonary arteries. Normal visualized aortic arch and descending thoracic aorta. Normal visualized thoracic spine. Normal visualized ribs, clavicles, and shoulders. There is no demonstrated abnormality of the visualized soft tissue structures of the upper abdomen. RAD/Chest PA and Lateral IMPRESSION: Cardiomegaly. Vascular congestion and mild CHF. Blunting of both costophrenic angles posteriorly. Electronically Signed: Cale Strong MD at 10:39 EDT Tel [phone], Service support ,
[2017-10-18 10:27] LABS: Anion Gap 8 (5-15); BUN 17 mg/dL (7-18); BUN/Creat Ratio 12.9 RATIO (10-20); Calcium,Total 8.5 mg/dL (8.5-10.1); Chloride 109 mmol/L (98-107); Creatinine, Serum 1.32 mg/dL (0.70-1.30); EST Glomerular Filtration Rate 60 mL/min (>60); Est Glom Filt Rate - Afr Amer 73 mL/min (>60); Estimated Creatinine Clearance 59.81 ml/min; Glucose 83 mg/dL (74-106); Potassium 4.1 mmol/L (3.5-5.1); Sodium Level 140 mmol/L (136-145)
[2017-10-18 10:45] LABS: BNP,B-Type NATRIURETIC PEPTIDE 261.3 pg/mL (0-100)
[2017-10-18] MEDS: Nitroglycerin Oint 1 INCH PACKET 0.5 INCH TRANSDERM. (11:57)
[2017-10-18] MEDS: Furosemide 20 MG/2 ML VIAL IV (11:57)
--- NOTE | 2017-10-18 13:24 | NURSING ---
108 CHF, [place]
--- NOTE | 2017-10-18 14:12 | CM.ED ---
Social Work Note Into complete initial assessment as pt is to be admitted. Pt is accompanied by his , [place]. Introduced self and role at [facility]. Pt reports to live with his in a one-story home and denies access issues. Pt is independent with ADLs and does not anticipate needs at discharge. Confirms that his primary care physician is Dr. Farrell. He also sees a police liaison officer and pharmacist at [facility]. Preferred pharmacy is [facility] in [place]. Denies having advanced directives and advanced care planning education and booklet. Made aware that RN CM is available on assigned unit if discharge needs arise. Plan: Home with no anticipated needs. Mackenzie Dhillon, ELECTRICAL DEVELOPMENT ENGINEER, BOOKS BINDER
--- NOTE | 2017-10-18 14:16 | PCM.HP.STD ---
Problem List (1) CHF (congestive heart failure) Status: Acute Qualifiers: Heart failure type: unspecified Heart failure chronicity: acute Qualified Code(s): I50.9 - Heart failure, unspecified History of Present Illness Date of Admission: 10/18/17 Chief Complaint: shortness of breath. edema. The patient is a 52 year old M who for the past 3 weeks has developed increasing lower extremity edema, increasing dyspnea on exertion and orthopnea. Patient has never had these symptoms before. Patient presented to the emergency room and had a slightly elevated BNP of 261. Patient has chest x-ray that was concerning for CHF. Patient did receive Nitro-Bid +20 mg of IV Lasix. [] Past Medical History Past Medical History (Chronic Problems): Chronic Problems Diabetes mellitus out of control (Chronic) Hyperlipidemia (Chronic) Benign essential hypertension (Chronic) Morbid obesity (Chronic) Coronary artery arteriosclerosis (Chronic) Lymphedema of left leg (Chronic) Left leg swelling (Chronic) Prostatism (Chronic) GERD (gastroesophageal reflux disease) (Chronic) Chronic venous insufficiency (Chronic) Edema of left lower extremity (Chronic) Medical History: Medical History (Last Updated 10/18/17 @ 14:22 by Butch Schmitz DO) Anemia D64.9 CAD (coronary artery disease) I25.10 CKD (chronic kidney disease) stage 2, GFR 60-89 ml/min N18.2 DM2 (diabetes mellitus, type 2) E11.9 GERD (gastroesophageal reflux disease) K21.9 Morbid obesity E66.01 MELODIE (obstructive sleep apnea) G47.33 HTN (hypertension) I10 Allergies pravastatin sodium [From Pravachol] Adverse Reaction (Intermediate, Verified 10/18/17 14:16) muscle aches ACHY MUSCLES Home Medications: Ambulatory Orders Medication Instructions Recorded Amlodipine [Norvasc] 10 mg PO DAILY 10/16/15 Aspirin [Aspirin, Baby] 81 mg PO DAILY@0800 10/16/15 Atorvastatin Calcium [Lipitor] 40 mg PO DAILY 10/16/15 Carvedilol [Coreg (Beta Kody)] 25 mg PO BID 08/29/17 Insulin Glargine,Hum.rec.anlog 150 unit SQ DAILY 08/29/17 [Toufatou Frank] Insulin Lispro [Humalog Tyree 50 unit SQ TIDCM 08/29/17 Yesenia] Omeprazole [Prilosec] 20 mg PO DAILY 08/29/17 Oxycodone [Oxyir] 5 mg PO Q8H PRN 2 Days #6 tablet 09/01/17 Losartan Potassium [Cozaar] 50 mg PO DAILY 10/18/17 Surgical History: coronary bypass surgery, - - Patient underwent coronary stent placement in 2008. He underwent coronary revascularization in March 2014, at which time 5 coronary bypass grafts were performed. Patient has a history of right groin wound debridement for MRSA. Psychiatric History: No pertinent psych hx Lives: Spouse/ Significant Other Smoking Status: Never smoker Tobacco Use: Non-smoker Alcohol: None Drugs: None - *Family History Paternal History Items: Hypertension Maternal History Items: Cancer - brain, Seizures Review of Systems Constitutional: Denies: Chills, Fever, Weight Change Eyes: Denies: Blurred vision, Double vision HEENT: Denies: Head Aches, Sinus Congestion, Sinus Drainage Cardiovascular: Reports: Edema, Orthopnea. Denies: Chest Pain, Palpitations Respiratory: Reports: Shortness of breath upon exertion. Denies: Cough Gastrointestinal: Reports: Abdominal Pain - when he ambulates. Denies: Diarrhea Genitourinary: Denies: Dysuria Musculoskeletal: Denies: Joint Pain, Joint Tenderness Skin: Denies: Rash, Wounds Neurological: Denies: Balance problems, Slurred speech Psychiatric: Denies: Anxiety, Depression Hematologic/ Lymphatic: Denies: Easy Bruising, Easy Bleeding, Hx of blood clot Comment: All review of systems are negative except as mentioned in the history of present illness and the other review of systems. VTE Information - Inpt Only VTE Present on Admission: No VTE Pharm Prophylaxis ordered?: Yes Patient Problems: Active and Suspected Problems Congestive heart failure of unknown etiology (Acute) CHF (congestive heart failure) (Acute) - Physical Exam General: Alert, Cooperative, No apparent distress HEENT: Atraumatic, Normocephalic Oral: Moist Mucosa, No Gingival or Mucosal Lesions/ Ulcerations Neck: No Nodes, Thyroid Normal Size and Texture Lungs: Clear to auscultation, No rhonchi, No wheeze, Diminished Cardiovascular: Regular rate, Regular Rhythm, Normal S1, Normal S2, No murmurs Abdomen: Bowel Sounds Present, Soft, Non Tender, Non-Distended Extremities: No Calf Tenderness, Edema - L>R Skin: No rashes, No breakdown Neurological: Neuro grossly intact, Sensory exam intact to light touch and pain, Coordination normal Psych/Mental Status: Normal Affect, Appropriate Vital Signs Temp Pulse Resp BP Pulse Ox 36.6 C 67 21 H 163/76 H 94 10/18/17 09:21 10/18/17 14:00 10/18/17 14:00 10/18/17 14:00 10/18/17 14:00 Oxygen Delivery Method Room Air Weight: 145.15 kg Body Mass Index (BMI) 50.1 Laboratory Tests Past 24 Hrs 10/18/17 10/18/17 10/18/17 10:00 10:00 10:00 WBC 6.7 RBC 3.90 L Hgb 9.3 L Hct 31.0 L MCV 79.5 L MCH 23.8 L MCHC 30.0 L RDW 16.2 H RDW Differential 46.3 H Plt Count 236 MPV 9.2 Immature Gran % (Auto) 0.500 Neut % (Auto) 60.2 Lymph % (Auto) 26.6 Smith % (Auto) 8.7 Eos % (Auto) 3.5 Baso % (Auto) 0.5 Absolute Neuts (auto) 4.0 Absolute Lymphs (auto) 1.77 Total Counted Not Reportable Sodium 140 Potassium 4.1 Chloride 109 H Carbon Dioxide 23.0 Anion Gap 8 BUN 17 Creatinine 1.32 H Estim Creat Clear Calc 59.81 Est GFR (MDRD) Af Amer 73 Est GFR (MDRD) Non-Af 60 BUN/Creatinine Ratio 12.9 Glucose 83 Calcium 8.5 Troponin I B-Natriuretic Peptide 261.3 H 10/18/17 10:00 WBC RBC Hgb Hct MCV MCH MCHC RDW RDW Differential Plt Count MPV Immature Gran % (Auto) Neut % (Auto) Lymph % (Auto) Smith % (Auto) Eos % (Auto) Baso % (Auto) Absolute Neuts (auto) Absolute Lymphs (auto) Total Counted Sodium Potassium Chloride Carbon Dioxide Anion Gap BUN Creatinine Estim Creat Clear Calc Est GFR (MDRD) Af Amer Est GFR (MDRD) Non-Af BUN/Creatinine Ratio Glucose Calcium Troponin I < 0.015 B-Natriuretic Peptide EKG showed normal sinus rhythm without any acute changes. Chest x-ray reviewed and showed some mild pulmonary vascular congestion as well as some subtle pleural effusions. Assessment/Plan All Active Problems Cellulitis (Acute) Severe sepsis (Acute) Congestive heart failure of unknown etiology (Acute) CHF (congestive heart failure) (Acute) Leg pain, left (Acute) Left leg cellulitis (Acute) 1. Acute CHF No echocardiogram available in our system though I would suspect probably with preserved ejection fraction Patient is already on an angiotensin tension receptor kody plus carvedilol Patient will be started on IV Lasix to 40 million twice daily Check an echocardiogram But he will come getting this may be some undiagnosed pulmonary hypertension likely group 3 due to sleep apnea With the patient's chronic swelling I have also discontinued his amlodipine. I do not feel that amlodipine was the sole cause of his edema but certainly did not help matters. Should be noted, that the patient has a chronically enlarged left leg as compared to his right. This is due to patient's previous venous harvesting for his CABG. Patient's left leg is currently much more swollen than his right but I feel that this is not due to DVT but due to his chronic venous insufficiency due to his previous vein harvesting on that side. 2. Anemia Patient has been chronically anemic dating back to 2016 May be anemia of chronic disease Will check anemia studies with iron, total iron-binding capacity, ferritin, TSH, B12 and folate 3. Obstructive sleep apnea Patient has been diagnosed with that and had been on a BiPAP though the patient stopped using BiPAP due to he just did not tolerate it. Patient was seeing a physician at the [facility] to whom he does not know the name of. I talked to him, particularly if patient does have pulmonary hypertension, about most compliance with using CPAP or BiPAP. I have recommended the patient follow-up with pulmonology as outpatient and see about if the BiPAP may be more appropriate and better tolerated. 4. Diabetes mellitus type 2 Continue with his Levemir and NovoLog. Sliding scale will also be added 5. DVT prophylaxis with Lovenox Code Visit Inpatient E&M: 33855 Init Hosp L3
--- NOTE | 2017-10-18 14:27 | HP.PCM_ITS ---
Problem List (1) CHF (congestive heart failure) Status: Acute Qualifiers: Heart failure type: unspecified Heart failure chronicity: acute Qualified Code(s): I50.9 - Heart failure, unspecified History of Present Illness Date of Admission: 10/18/17 Chief Complaint: shortness of breath. edema. The patient is a 52 year old M who for the past 3 weeks has developed increasing lower extremity edema, increasing dyspnea on exertion and orthopnea. Patient has never had these symptoms before. Patient presented to the emergency room and had a slightly elevated BNP of 261. Patient has chest x-ray that was concerning for CHF. Patient did receive Nitro-Bid +20 mg of IV Lasix. [] Past Medical History Past Medical History (Chronic Problems): Chronic Problems Diabetes mellitus out of control (Chronic) Hyperlipidemia (Chronic) Benign essential hypertension (Chronic) Morbid obesity (Chronic) Coronary artery arteriosclerosis (Chronic) Lymphedema of left leg (Chronic) Left leg swelling (Chronic) Prostatism (Chronic) GERD (gastroesophageal reflux disease) (Chronic) Chronic venous insufficiency (Chronic) Edema of left lower extremity (Chronic) Medical History: Medical History (Last Updated 10/18/17 @ 14:22 by Butch Schmitz DO) Anemia D64.9 CAD (coronary artery disease) I25.10 CKD (chronic kidney disease) stage 2, GFR 60-89 ml/min N18.2 DM2 (diabetes mellitus, type 2) E11.9 GERD (gastroesophageal reflux disease) K21.9 Morbid obesity E66.01 MELODIE (obstructive sleep apnea) G47.33 HTN (hypertension) I10 Allergies pravastatin sodium [From Pravachol] Adverse Reaction (Intermediate, Verified 14:16) muscle aches ACHY MUSCLES Home Medications: Ambulatory Orders Medication Instructions Recorded Amlodipine [Norvasc] 10 mg PO DAILY 10/16/15 Aspirin [Aspirin, Baby] 81 mg PO DAILY@0800 10/16/15 Atorvastatin Calcium [Lipitor] 40 mg PO DAILY 10/16/15 Carvedilol [Coreg (Beta Kody)] 25 mg PO BID 08/29/17 Insulin Glargine,Hum.rec.anlog 150 unit SQ DAILY 08/29/17 [Toufatou Frank] Insulin Lispro [Humalog Tyree 50 unit SQ TIDCM 08/29/17 Yesenia] Omeprazole [Prilosec] 20 mg PO DAILY 08/29/17 Oxycodone [Oxyir] 5 mg PO Q8H PRN 2 Days #6 tablet 09/01/17 Losartan Potassium [Cozaar] 50 mg PO DAILY 10/18/17 Surgical History: coronary bypass surgery, - - Patient underwent coronary stent placement in 2008. He underwent coronary revascularization in March 2014, at which time 5 coronary bypass grafts were performed. Patient has a history of right groin wound debridement for MRSA. Psychiatric History: No pertinent psych hx Lives: Spouse/ Significant Other Smoking Status: Never smoker Tobacco Use: Non-smoker Alcohol: None Drugs: None - *Family History Paternal History Items: Hypertension Maternal History Items: Cancer - brain, Seizures Review of Systems Constitutional: Denies: Chills, Fever, Weight Change Eyes: Denies: Blurred vision, Double vision HEENT: Denies: Head Aches, Sinus Congestion, Sinus Drainage Cardiovascular: Reports: Edema, Orthopnea. Denies: Chest Pain, Palpitations Respiratory: Reports: Shortness of breath upon exertion. Denies: Cough Gastrointestinal: Reports: Abdominal Pain - when he ambulates. Denies: Diarrhea Genitourinary: Denies: Dysuria Musculoskeletal: Denies: Joint Pain, Joint Tenderness Skin: Denies: Rash, Wounds Neurological: Denies: Balance problems, Slurred speech Psychiatric: Denies: Anxiety, Depression Hematologic/ Lymphatic: Denies: Easy Bruising, Easy Bleeding, Hx of blood clot Comment: All review of systems are negative except as mentioned in the history of present illness and the other review of systems. VTE Information - Inpt Only VTE Present on Admission: No VTE Pharm Prophylaxis ordered?: Yes Patient Problems: Active and Suspected Problems Congestive heart failure of unknown etiology (Acute) CHF (congestive heart failure) (Acute) - Physical Exam General: Alert, Cooperative, No apparent distress HEENT: Atraumatic, Normocephalic Oral: Moist Mucosa, No Gingival or Mucosal Lesions/ Ulcerations Neck: No Nodes, Thyroid Normal Size and Texture Lungs: Clear to auscultation, No rhonchi, No wheeze, Diminished Cardiovascular: Regular rate, Regular Rhythm, Normal S1, Normal S2, No murmurs Abdomen: Bowel Sounds Present, Soft, Non Tender, Non-Distended Extremities: No Calf Tenderness, Edema - L>R Skin: No rashes, No breakdown Neurological: Neuro grossly intact, Sensory exam intact to light touch and pain , Coordination normal Psych/Mental Status: Normal Affect, Appropriate Vital Signs Temp Pulse Resp BP Pulse Ox 36.6 C 67 21 H 163/76 H 94 10/18/17 09:21 10/18/17 14:00 10/18/17 14:00 10/18/17 14:00 10/18/17 14:00 Oxygen Delivery Method Room Air Weight: 145.15 kg Body Mass Index (BMI) 50.1 Laboratory Tests Past 24 Hrs 10/18/17 10/18/17 10/18/17 10:00 10:00 10:00 WBC 6.7 RBC 3.90 L Hgb 9.3 L Hct 31.0 L MCV 79.5 L MCH 23.8 L MCHC 30.0 L RDW 16.2 H RDW Differential 46.3 H Plt Count 236 MPV 9.2 Immature Gran % (Auto) 0.500 Neut % (Auto) 60.2 Lymph % (Auto) 26.6 Jay % (Auto) 8.7 Eos % (Auto) 3.5 Baso % (Auto) 0.5 Absolute Neuts (auto) 4.0 Absolute Lymphs (auto) 1.77 Total Counted Not Reportable Sodium 140 Potassium 4.1 Chloride 109 H Carbon Dioxide 23.0 Anion Gap 8 BUN 17 Creatinine 1.32 H Estim Creat Clear Calc 59.81 Est GFR (MDRD) Af Amer 73 Est GFR (MDRD) Non-Af 60 BUN/Creatinine Ratio 12.9 Glucose 83 Calcium 8.5 Troponin I B-Natriuretic Peptide 261.3 H 10/18/17 10:00 WBC RBC Hgb Hct MCV MCH MCHC RDW RDW Differential Plt Count MPV Immature Gran % (Auto) Neut % (Auto) Lymph % (Auto) Jay % (Auto) Eos % (Auto) Baso % (Auto) Absolute Neuts (auto) Absolute Lymphs (auto) Total Counted Sodium Potassium Chloride Carbon Dioxide Anion Gap BUN Creatinine Estim Creat Clear Calc Est GFR (MDRD) Af Amer Est GFR (MDRD) Non-Af BUN/Creatinine Ratio Glucose Calcium Troponin I < 0.015 B-Natriuretic Peptide EKG showed normal sinus rhythm without any acute changes. Chest x-ray reviewed and showed some mild pulmonary vascular congestion as well as some subtle pleural effusions. Assessment/Plan All Active Problems Cellulitis (Acute) Severe sepsis (Acute) Congestive heart failure of unknown etiology (Acute) CHF (congestive heart failure) (Acute) Leg pain, left (Acute) Left leg cellulitis (Acute) 1. Acute CHF * No echocardiogram available in our system though I would suspect probably with preserved ejection fraction * Patient is already on an angiotensin tension receptor kody plus carvedilol * Patient will be started on IV Lasix to 40 million twice daily * Check an echocardiogram * But he will come getting this may be some undiagnosed pulmonary hypertension likely group 3 due to sleep apnea * With the patient's chronic swelling I have also discontinued his amlodipine. I do not feel that amlodipine was the sole cause of his edema but certainly did not help matters. * Should be noted, that the patient has a chronically enlarged left leg as compared to his right. This is due to patient's previous venous harvesting for his CABG. Patient's left leg is currently much more swollen than his right but I feel that this is not due to DVT but due to his chronic venous insufficiency due to his previous vein harvesting on that side. 2. Anemia * Patient has been chronically anemic dating back to 2016 * May be anemia of chronic disease * Will check anemia studies with iron, total iron-binding capacity, ferritin, TSH, B12 and folate 3. Obstructive sleep apnea * Patient has been diagnosed with that and had been on a BiPAP though the patient stopped using BiPAP due to he just did not tolerate it. Patient was seeing a physician at the [facility] to whom he does not know the name of. I talked to him, particularly if patient does have pulmonary hypertension, about most compliance with using CPAP or BiPAP. I have recommended the patient follow-up with pulmonology as outpatient and see about if the BiPAP may be more appropriate and better tolerated. 4. Diabetes mellitus type 2 * Continue with his Levemir and NovoLog. Sliding scale will also be added 5. DVT prophylaxis with Lovenox Code Visit Inpatient E&M: 42542 Init Hosp L3
--- NOTE | 2017-10-18 14:55 | ECHOD_ITS ---
Reason For Study: CHF Procedure This was a 2D Doppler, Color Flow transthoracic echocardiogram. The study was technically difficult. Exam performed portable in patient room. Left Ventricle Moderate concentric left ventricular hypertrophy. The estimated ejection fraction is 65 %. Normal diastology for age. No regional wall motion abnormalities noted. Right Ventricle Normal size and thickness. Normal systolic function. Atria The left atrium is severely enlarged. Normal right atrium. Normal atrial septum. Mitral Valve The mitral valve is structurally normal. No prolapse or stenosis seen. Mild (1+) mitral valve insufficiency. Tricuspid Valve Normal tricuspid valve. Trivial tricuspid valve insufficiency. Right ventricular systolic pressure estimated to be 44 mmHg. Mild pulmonary hypertension. Aortic Valve Trisinus/trileaflet aortic valve. Pulmonic Valve Normal pulmonic valve. Great Vessels Normal aortic root. Normal arch. Normal inferior vena cava. Inferior vena cava collapse with sniff. Pericardium/Pleural No pericardial effusion. MMode/2D Measurements & Calculations LVIDd: 4.6 cm IVSd: 1.7 cm Ao root diam: 3.7 cm LVIDs: 3.7 cm LVPWd: 1.7 cm LA dimension: 5.7 cm FS: 20.1 % LAV(MOD-sp4): 122.9 ml LA A4 area: 31.9 cm2 RA A4 area: 18.2 cm2 Time Measurements MV dec time: 0.23 sec Doppler Measurements & Calculations MV E max calista: 132.1 cm/sec MV V2 max: 175.3 cm/sec MV P1/2t max calista: 176.2 cm/sec MV A max calista: 73.3 cm/sec MV max P.3 mmHg MV P1/2t: 100.7 msec MV E/A: 1.8 MV V2 mean: 78.2 cm/sec MV dec slope: 512.7 cm/sec2 MV mean P.2 mmHg MVA(P1/2t): 2.2 cm2 MV V2 VTI: 46.4 cm Ao V2 max: 155.3 cm/sec LV V1 max: 114.1 cm/sec PA V2 max: 111.7 cm/sec Ao max P.6 mmHg LV V1 max P.2 mmHg Ao V2 mean: 105.3 cm/sec LV V1 mean P.4 mmHg Ao mean P.1 mmHg LV V1 mean: 69.8 cm/sec Ao V2 VTI: 32.2 cm LV V1 VTI: 23.5 cm TR max calista: 309.7 cm/sec TR max P.4 mmHg Interpretation Summary Moderate concentric left ventricular hypertrophy. The estimated ejection fraction is 65 %. Normal diastology for age. The left atrium is severely enlarged. Mild (1+) mitral valve insufficiency. Trivial tricuspid valve insufficiency. Right ventricular systolic pressure estimated to be 44 mmHg. There is no comparison study available. Ordering Physician: Butch Schmitz Referring Physician: Betty Farrell Performed By: Krish Huertas RCS
[2017-10-18 16:36] LABS: Bedside Glucose 104 mg/dL (70-110)
[2017-10-18] MEDS: Insulin Lispro 100 UNIT/ML INSULN.PEN 50 UNIT SC (16:47)
[2017-10-18] MEDS: 0.9% NaCl Peripheral Flush Adult/Peds IV (17:24)
[2017-10-18] MEDS: Furosemide 40 MG/4 ML Vial IV (17:24)
[2017-10-18 19:06] LABS: Ferritin 46 ng/mL (26-388); Iron 24 ug/dL (65-175); Iron Binding Capacity,Total 359 ug/dL (250-450); PERCENT IRON SATURATION 6.7 % (15.0-55.0)
[2017-10-18] MEDS: Carvedilol 25 MG Tablet PO (22:28)
[2017-10-18 23:31] LABS: Bedside Glucose 139 mg/dL (70-110)
[2017-10-19 02:59] VITALS: PULSE 66
[2017-10-19 03:15] VITALS: BP 162/86; PULSE 66; RESP 20; TEMP 36.9; O2SAT 94
--- NOTE | 2017-10-19 03:15 | NURSING ---
Called into pt. room. Pt. c/o feels like blood sugar low. Pt. A/O x 3, very diaphoretic. Glucometer reading was 54. Peanut butter crackers and 8 oz. orange juice given.
[2017-10-19 03:16] LABS: Bedside Glucose 54 mg/dL (70-110)
--- NOTE | 2017-10-19 03:30 | NURSING ---
Glucometer recheck was 69. more peanut butter crackers given. VSS. Pt. feeling better, less diaphoretic.
[2017-10-19 04:01] LABS: Bedside Glucose 69 mg/dL (70-110)
[2017-10-19 04:01] LABS: Bedside Glucose 104 mg/dL (70-110)
[2017-10-19 06:45] LABS: International Normalized Ratio 1.2
[2017-10-19 06:49] LABS: Anion Gap 8 (5-15); BUN 16 mg/dL (7-18); BUN/Creat Ratio 11.8 RATIO (10-20); Calcium,Total 8.3 mg/dL (8.5-10.1); Chloride 108 mmol/L (98-107); Cholesterol 134 mg/dL (200); Creatinine, Serum 1.36 mg/dL (0.70-1.30); EST Glomerular Filtration Rate 58 mL/min (>60); Est Glom Filt Rate - Afr Amer 70 mL/min (>60); Estimated Creatinine Clearance 58.05 ml/min; Glucose 163 mg/dL (74-106); High Density Lipoprotein 30 mg/dL; Sodium Level 141 mmol/L (136-145); Triglycerides 222 mg/dL; Very Low Density Lipoprotein 44 mg/dL (5-40)
[2017-10-19 06:58] VITALS: PULSE 65
[2017-10-19 07:21] LABS: Bedside Glucose 136 mg/dL (70-110)
[2017-10-19 09:15] VITALS: BP 157/73; PULSE 73; RESP 16; TEMP 36.9; O2SAT 96
[2017-10-19] MEDS: Furosemide 40 MG/4 ML Vial IV (09:22)
[2017-10-19] MEDS: Enoxaparin 40 MG/0.4 ML Syringe SC (09:22)
[2017-10-19] MEDS: 0.9% NaCl Peripheral Flush Adult/Peds IV (09:22)
[2017-10-19] MEDS: Pantoprazole Sodium 20 MG Tablet PO (09:23)
[2017-10-19] MEDS: Losartan Potassium 50 MG Tablet PO (09:23)
[2017-10-19] MEDS: Carvedilol 25 MG Tablet PO (09:23)
[2017-10-19] MEDS: Atorvastatin Calcium 40 MG Tablet PO (09:23)
[2017-10-19] MEDS: Aspirin 81 MG TAB.CHEW PO (09:23)
[2017-10-19] MEDS: Ferrous Sulfate 325 MG Tablet PO (09:44)
[2017-10-19 11:04] VITALS: PULSE 66
[2017-10-19 11:21] LABS: Bedside Glucose 218 mg/dL (70-110)
--- NOTE | 2017-10-19 11:26 | PCM.DC ---
- Discharge Diagnoses Current Active Problems: Current Active and Chronic Problems (Last Updated 10/18/17 @ 14:22 by Butch Schmitz DO) Acute diastolic CHF exacerbation You will use the following diet at home:: Calorie/Carbohydrate Controlled (specify 1200, 1400, etc) - 1800 vicki / day, Cardiac - <2 grams sodium daily. Your food should be the consistency of: Regular Your liquids should be the consistency of: Regular/Thin Discharge Activity: Return to Normal Activity Additional Instructions: monitor your weight daily, record it daily, and present the results to your PCP. If you gain 5 pounds in one day you need to call your PCP and talk about adjusting your lasix. Please also use compression socks daily for swelling and elevate your legs when sitting. Allergies/Adverse Reactions: Allergies pravastatin sodium [From Pravachol] Adverse Reaction (Intermediate, Verified 10/18/17 14:16) muscle aches ACHY MUSCLES Medications to take at Discharge Amlodipine [Norvasc] 10 mg PO DAILY 10/16/15 Aspirin [Aspirin, Baby] 81 mg PO DAILY@0800 10/16/15 Atorvastatin Calcium [Lipitor] 40 mg PO QHS 10/16/15 Carvedilol [Coreg (Beta Kody)] 25 mg PO BID 08/29/17 Insulin Glargine,Hum.rec.anlog [Toujeo Solostar] 150 unit SQ DAILY 08/29/17 Insulin Lispro [Humalog Tyree Kwikpen] 50 unit SQ TIDCM 08/29/17 Omeprazole [Prilosec] 20 mg PO DAILY 08/29/17 Losartan Potassium [Cozaar] 50 mg PO DAILY 10/18/17 Ferrous Sulfate 325 mg PO BIDCM #60 tab 10/19/17 Furosemide [Lasix] 40 mg PO BID #60 tab 10/19/17 Potassium Chloride [K-Dur] 10 meq PO DAILY #30 tab 10/19/17 The following prescriptions were given: Ferrous Sulfate 325 mg PO BIDCM #60 tab Furosemide [Lasix] 40 mg PO BID #60 tab Potassium Chloride [K-Dur] 10 meq PO DAILY #30 tab Primary Care Physician: Betty Farrell MD [Primary Care Provider] - Please follow up with your Primary Care Physician in: 2 weeks Test Results: Test results from this visit will be discussed in further detail at your follow-up appointment, if applicable. Please Follow Up With: Piero Sanchez MD When: 2 weeks Proposed Discharge Date: 10/19/17
--- NOTE | 2017-10-19 11:30 | DCINST_ITS ---
- Discharge Diagnoses Current Active Problems: Current Active and Chronic Problems (Last Updated 10/18/17 @ 14:22 by Butch Schmitz DO) Acute diastolic CHF exacerbation You will use the following diet at home:: Calorie/Carbohydrate Controlled ( specify 1200, 1400, etc) - 1800 vicki / day, Cardiac - <2 grams sodium daily. Your food should be the consistency of: Regular Your liquids should be the consistency of: Regular/Thin Discharge Activity: Return to Normal Activity Additional Instructions: monitor your weight daily, record it daily, and present the results to your PCP. If you gain 5 pounds in one day you need to call your PCP and talk about adjusting your lasix. Please also use compression socks daily for swelling and elevate your legs when sitting. Allergies/Adverse Reactions: Allergies pravastatin sodium [From Pravachol] Adverse Reaction (Intermediate, Verified 14:16) muscle aches ACHY MUSCLES Medications to take at Discharge Amlodipine [Norvasc] 10 mg PO DAILY 10/16/15 Aspirin [Aspirin, Baby] 81 mg PO DAILY@0800 10/16/15 Atorvastatin Calcium [Lipitor] 40 mg PO QHS 10/16/15 Carvedilol [Coreg (Beta Kody)] 25 mg PO BID 08/29/17 Insulin Glargine,Hum.rec.anlog [Toujeo Solostar] 150 unit SQ DAILY 08/29/17 Insulin Lispro [Humalog Tyree Kwikpen] 50 unit SQ TIDCM 08/29/17 Omeprazole [Prilosec] 20 mg PO DAILY 08/29/17 Losartan Potassium [Cozaar] 50 mg PO DAILY 10/18/17 Ferrous Sulfate 325 mg PO BIDCM #60 tab 10/19/17 Furosemide [Lasix] 40 mg PO BID #60 tab 10/19/17 Potassium Chloride [K-Dur] 10 meq PO DAILY #30 tab 10/19/17 The following prescriptions were given: Ferrous Sulfate 325 mg PO BIDCM #60 tab Furosemide [Lasix] 40 mg PO BID #60 tab Potassium Chloride [K-Dur] 10 meq PO DAILY #30 tab Primary Care Physician: Betty Farrell MD [Primary Care Provider] - Please follow up with your Primary Care Physician in: 2 weeks Test Results: Test results from this visit will be discussed in further detail at your follow- up appointment, if applicable. Please Follow Up With: Piero Sanchez MD When: 2 weeks Proposed Discharge Date: 10/19/17
[2017-10-19 12:20] LABS: Vitamin B12 455 pg/mL (211-911)
--- NOTE | 2017-10-19 16:17 | DS.PCM_ITS ---
<Tolu Agudelo - Last Filed: 10/19/17 16:33> Discharge Date and Diagnosis Date of Admission: 10/18/17 Date of Discharge: 10/19/17 - Primary Discharge Diagnosis Acute diastolic CHF exacerbation T2DM HLD CAD with prior cABG HTN GERD MELODIE anemia with iron deficiency - Secondary Discharge Diagnosis Chronic Problems (Last Updated 10/18/17 @ 14:22 by Butch Schmitz DO) Edema of left lower extremity (Chronic) Left leg swelling (Chronic) Lymphedema of left leg (Chronic) Coronary artery arteriosclerosis (Chronic) Morbid obesity (Chronic) Benign essential hypertension (Chronic) Hyperlipidemia (Chronic) Diabetes mellitus out of control (Chronic) Chronic venous insufficiency (Chronic) GERD (gastroesophageal reflux disease) (Chronic) Prostatism (Chronic) Hospital Course and Treatment Imaging Results: Echo: Interpretation Summary Moderate concentric left ventricular hypertrophy. The estimated ejection fraction is 65 %. Normal diastology for age. The left atrium is severely enlarged. Mild (1+) mitral valve insufficiency. Trivial tricuspid valve insufficiency. Right ventricular systolic pressure estimated to be 44 mmHg. There is no comparison study available. RAD/Chest PA and Lateral IMPRESSION: Cardiomegaly. Vascular congestion and mild CHF. Blunting of both costophrenic angles posteriorly. Operations: None Procedures: 2-D Echocardiogram Summary of Care Provided: Physical exam on day of discharge: General: Resting comfortably NAD Psych: A/Ox3 normal affect HEENT: PEARRLA AT NC Neck: Supple NT CV: RRR no m/t/r/g/h Resp: CTA Abd: [id number] Soft NT no guarding or rigidity Ext: DP2+= 1+ pitting edema BLE Skin: W/D normal turgor Lymph/Heme: No active bleeding or adenopathy Neuro: CN2-12 intact Hospital course: The patient is a 52 year old M with a hx of CAD with prior CABG patient at [facility], hx HTN, dmt2, MELOIDE not using CPAP at home, GERD, morbid obesity, who presented to the ER with chief complaint of SOB progressive over 3 week and worse with exertion along with orthopnea and PND, sleeping in a recliner and with increased LE edema. He came to the ER and was found to have elevated BNP, CXR c/w CHF. He was admitted to the PCU on tele for acute CHF exacerbation. He was placed on 40 BID IV lasix. He improved overnight very well and had decreased LE edema, and improved tolerance for physical activity. Echo was obtained showing preserved EF at 65% and mild pulmonary htn with rvsp 44 mmHg, 1+ MVI, severely enlarged LA. He was transitioned to PO lasix at 40 BID with 10 meq of K daily. He desired to go home as he was feeling significantly better and not requiring O2. Lipid panel was at goal with LDL of 60. He was anemic with microcytosis - iron panel showed deficiency so he was started on PO iron. He will need a BMP in 3-5 days and close follow up with his PCP to assess the effectiveness of his new meds. The patient had not seen his felled seam operator at [place] in over a year and stated he wanted to see a felled seam operator here in [place] instead. I advised him to schedule an appointment with Dr. Sanchez here in 2 weeks. He was discharged home in stable condition. This patient was seen by Tolu Agudelo PA-C under the supervision of Doctor Samm. [] Discharge Diet: Low fat/ Low Cholesterol, 1800 Calorie Control Diet, 2000 mg Sodium Diet Discharge Activity: Return to Normal Activity Home Medications: Medications to take at Discharge Amlodipine [Norvasc] 10 mg PO DAILY 10/16/15 Aspirin [Aspirin, Baby] 81 mg PO DAILY@0800 10/16/15 Atorvastatin Calcium [Lipitor] 40 mg PO QHS 10/16/15 Carvedilol [Coreg (Beta Kody)] 25 mg PO BID 08/29/17 Insulin Glargine,Hum.rec.anlog [Toufatou Solostlin] 150 unit SQ DAILY 08/29/17 Insulin Lispro [Humalog Tyree Kwikpen] 50 unit SQ TIDCM 08/29/17 Omeprazole [Prilosec] 20 mg PO DAILY 08/29/17 Losartan Potassium [Cozaar] 50 mg PO DAILY 10/18/17 Ferrous Sulfate 325 mg PO BIDCM #60 tab 10/19/17 Furosemide [Lasix] 40 mg PO BID #60 tab 10/19/17 Potassium Chloride [K-Dur] 10 meq PO DAILY #30 tab 10/19/17 Following Prescrptions Were Given to Patient: Ferrous Sulfate 325 mg PO BIDCM #60 tab Furosemide [Lasix] 40 mg PO BID #60 tab Potassium Chloride [K-Dur] 10 meq PO DAILY #30 tab Primary Care Physician: Betty Farrell MD [Primary Care Provider] - Please follow up with your Primary Care Physician in: 2 weeks Please Follow Up With: Piero Sanchez MD When: 2 weeks Additional Instructions: Check and record daily weights. Call PCP if >4 lb increase in one day. Compression socks daily. Disposition: Home Minutes spent on discharge:: 40 Patient Condition:: Stable Medical Necessity - Tobacco Use Smoking Status: Never smoker Tobacco Use: Non-smoker Meaningful Use Info Meaningful Use Diagnoses (Choose all that apply): CHF - CHF GEENA/ARB ordered at discharge?: Yes Documented LVEF (%): 65 <Minesh Quijano - Last Filed: 10/19/17 17:01> Discharge Date and Diagnosis - Secondary Discharge Diagnosis Chronic Problems (Last Updated 10/18/17 @ 14:22 by Butch Schmitz DO) Edema of left lower extremity (Chronic) Left leg swelling (Chronic) Lymphedema of left leg (Chronic) Coronary artery arteriosclerosis (Chronic) Morbid obesity (Chronic) Benign essential hypertension (Chronic) Hyperlipidemia (Chronic) Diabetes mellitus out of control (Chronic) Chronic venous insufficiency (Chronic) GERD (gastroesophageal reflux disease) (Chronic) Prostatism (Chronic) Hospital Course and Treatment Summary of Care Provided: This patient was seen in conjunction with Tolu Agudelo PA-C . I have independently interviewed and examined the patient and reviewed pertinent historical, laboratory, and other data. Please refer to Tolu Agudelo PA-C note for details of this patient's presentation, findings, and recommendations. I have reviewed Tolu Agudelo PA-C note and concur with documented findings. In brief, patient is a 52-year-old gentleman admitted with progressive shortness of breath and assessment of acute congestive heart failure made admitted to a monitored bed managed per protocol Assessment: 1. Acute diastolic CHF exacerbation 2. Diabetes mellitus type 2 3. CAD with previous CABG 4. Dyslipidemia 5. Essential hypertension 6. GERD 7. Obstructive sleep apnea 8. Anemia secondary to anemia of chronic disorder Hospital course: As elicited above by Tolu Agudelo PA-C Total time spent on discharge process; 45 minute Code Visit Inpatient E&M: [id number] Disch Hosp
--- NOTE | 2017-10-20 15:59 | CASEMGMT ---
RN CM Discharge Follow-up Phone Call: JÚNIOR: 11 Strata: 3 Call Date: 10/20/17 Discharge Date: 10/19/17 Time of Call: 1358 Duration: 1 min Admitting Diagnosis: CHF RN CM attempted to complete follow-up phone call after recent hospitalization. No answer and unable to leave voice message as mailbox has not been setup. CM will attempt to place call at later time.
== END 2017-10-19 12:01 | disposition home or self-care (01) | DRG 292 ==
LOC: ED 13:20 → PCU 14:27
PROVIDERS: Emergency Provider Emergency Medicine; Family Provider Internal Medicine; PCP Internal Medicine; Visit Provider Internal Medicine
DX: I11.0 Hypertensive heart disease with heart failure (principal); Z68.43 Body mass index [BMI] 50.0-59.9, adult; I50.33 Acute on chronic diastolic (congestive) heart failure; E11.65 Type 2 diabetes mellitus with hyperglycemia; Z79.4 Long term (current) use of insulin; Z95.1 Presence of aortocoronary bypass graft; E78.5 Hyperlipidemia, unspecified; I25.10 Atherosclerotic heart disease of native coronary artery without angina pectoris; K21.9 Gastro-esophageal reflux disease without esophagitis; G47.33 Obstructive sleep apnea (adult) (pediatric); D50.9 Iron deficiency anemia, unspecified; I89.0 Lymphedema, not elsewhere classified; E66.01 Morbid (severe) obesity due to excess calories; I27.20 Pulmonary hypertension, unspecified; I87.2 Venous insufficiency (chronic) (peripheral); N40.0 Benign prostatic hyperplasia without lower urinary tract symptoms
CPT/HCPCS: 36415; 71046; 80048; 80061; 82607; 82728; 82746; 82962; 83540; 83550; 83880; 84443; 84484; 85025; 85610; 93005; 93306; 97802; 99285; Q9957; A4216; J1940

== ENCOUNTER → 2017-10-22 11:14 | Outpatient (CLI) | payer OTHER, MEDICARE, SELFPAY ==
[2017-10-22 12:19] LABS: Anion Gap 8 (5-15); BUN 15 mg/dL (7-18); BUN/Creat Ratio 11.1 RATIO (10-20); Calcium,Total 8.3 mg/dL (8.5-10.1); Chloride 107 mmol/L (98-107); Creatinine, Serum 1.35 mg/dL (0.70-1.30); EST Glomerular Filtration Rate 58 mL/min (>60); Est Glom Filt Rate - Afr Amer 71 mL/min (>60); Glucose 124 mg/dL (74-106); Sodium Level 142 mmol/L (136-145)
== END ==
PROVIDERS: Family Provider Internal Medicine; PCP Internal Medicine; Visit Provider Physician Assistant
DX: Z79.899 Other long term (current) drug therapy (principal)
CPT/HCPCS: 36415; 80048

== ENCOUNTER → 2017-11-21 06:10 | Outpatient (CLI) | payer MEDICARE, OTHER, SELFPAY ==
--- NOTE | 2017-11-21 09:23 | STRESSREP_ITS ---
Stress Test Report Pharmacologic myocardial perfusion stress test. 52-year-old man with a history of coronary artery disease status post carotid bypass surgery in 2014. Medications aspirin, Lipitor, Coreg, amlodipine, losartan. Stress protocol: Resting EKG demonstrates sinus rhythm with rate of 61 bpm. Resting blood pressure is 156/90 mmHg. 0.4 mg of regadenoson was infused per usual protocol followed by rapid intravenous saline flush injection continuous EKG monitoring was performed. Patient maintained sinus rhythm throughout the recording. T- wave inversions were noted in V2 and V3 the maximum heart rate attained was 73 bpm which was 43% of maximum predicted heart rate the maximum workload attained was 1 metabolic equivalent. At rest there were no ST or T-wave changes noted to suggest abnormal flow reserve at peak infusion no ST or T-wave changes were noted to suggest abnormal flow reserve. Myocardial perfusion protocol. 14.9 mCi of technetium 99m sestamibi was injected at rest. 0.4 mg regadenoson was infused per usual protocol peak infusion 44.8 mCi of technetium 99m sestamibi was injected stress images were obtained stress and rest images were reconstructed and compared in the short axis vertical and horizontal long axis. Gated images were also obtained pre- Perfusion SPECT analysis: Review of the stress images demonstrate a normal cardiac silhouette size. The anterior wall and septum appeared well perfused. There is a small perfusion defect noted in the apex in the basal inferolateral wall also has a small perfusion defect. These defects appear to be present on the stress and rest images to a similar extent and may suggest previous infarct involving the apex as well as the basal inferolateral wall. No ischemia is noted. Gated SPECT analysis: The gated ejection fraction by gated SPECT is 43%. Conclusion: Pharmacologic myocardial perfusion stress test with no evidence of ischemia. 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 Mildly reduced left ventricular ejection fraction by gated SPECT.
== END ==
PROVIDERS: Family Provider Internal Medicine; PCP Internal Medicine; Visit Provider Internal Medicine Cardiovascular Disease
DX: I50.31 Acute diastolic (congestive) heart failure (principal); Z95.1 Presence of aortocoronary bypass graft
CPT/HCPCS: 78452; 93017; A9500; A4216; J2785

== ENCOUNTER → 2017-12-02 09:42 | Outpatient (CLI) | payer OTHER, MEDICARE, SELFPAY ==
[2017-12-02 11:20] LABS: Hematocrit 42.2 % (40-54); Hemoglobin 13.2 g/dl (13.0-16.5); Mean Corp Hgb Conc 31.3 g/gl (32-36); Mean Corpuscular Hgb 26.5 pg (27.0-32.0); Mean Corpuscular Volume 84.7 fL (80-94); Mean Platelet Vol. 10.8 fl (6.2-12.0); Platelet Count 217 K/mm3 (150-450); RBC Distribution Width CV 19.2 % (11.6-14.6); RBC Distribution Width SD 59.9 fl (35.1-43.9); Red Blood Count 4.98 M/mm3 (4.6-6.2)
[2017-12-02 11:21] LABS: Scan Indicated on CBC? Y/N NO
[2017-12-02 11:47] LABS: Albumin, Serum 2.3 g/dL (3.2-5.0); BUN 22 mg/dL (7-18); BUN/Creat Ratio 15.3 RATIO (10-20); Calcium,Total 8.6 mg/dL (8.5-10.1); Chloride 107 mmol/L (98-107); Creatinine, Serum 1.44 mg/dL (0.70-1.30); EST Glomerular Filtration Rate 54 mL/min (>60); Est Glom Filt Rate - Afr Amer 66 mL/min (>60); Glucose 220 mg/dL (74-106); Phosphorus 3.6 mg/dL (2.5-4.9); Potassium 4.5 mmol/L (3.5-5.1); Sodium Level 138 mmol/L (136-145)
[2017-12-02 11:55] LABS: BNP,B-Type NATRIURETIC PEPTIDE 160.6 pg/mL (0-100)
[2017-12-02 12:14] LABS: Protein:Creat Ratio 7256 mg/g CRE (0-200)
[2017-12-02 16:18] LABS: PTHIN 106.8 pg/mL (18.4-80.1)
== END ==
PROVIDERS: Internal Medicine Cardiovascular Disease; Family Provider Internal Medicine; PCP Internal Medicine; Visit Provider Internal Medicine Nephrology
DX: E11.22 Type 2 diabetes mellitus with diabetic chronic kidney disease (principal); E11.21 Type 2 diabetes mellitus with diabetic nephropathy; N18.2 Chronic kidney disease, stage 2 (mild); I50.31 Acute diastolic (congestive) heart failure; I25.810 Atherosclerosis of coronary artery bypass graft(s) without angina pectoris; Z95.1 Presence of aortocoronary bypass graft
CPT/HCPCS: 36415; 80069; 82570; 83880; 83970; 84156; 85027

== ENCOUNTER → 2018-01-04 09:34 | Outpatient (CLI) | payer OTHER, MEDICARE, SELFPAY ==
[2018-01-04 11:25] LABS: Anion Gap 7 (5-15); BUN 28 mg/dL (7-18); BUN/Creat Ratio 17.8 RATIO (10-20); Calcium,Total 8.6 mg/dL (8.5-10.1); Chloride 107 mmol/L (98-107); Creatinine, Serum 1.57 mg/dL (0.70-1.30); EST Glomerular Filtration Rate 49 mL/min (>60); Est Glom Filt Rate - Afr Amer 59 mL/min (>60); Glucose 151 mg/dL (74-106); Potassium 4.2 mmol/L (3.5-5.1); Sodium Level 137 mmol/L (136-145)
== END ==
PROVIDERS: Family Provider Internal Medicine; PCP Internal Medicine; Referring Provider Internal Medicine Cardiovascular Disease; Visit Provider Internal Medicine Cardiovascular Disease
DX: R06.00 Dyspnea, unspecified (principal); I50.31 Acute diastolic (congestive) heart failure
CPT/HCPCS: 36415; 80048

== ENCOUNTER → 2018-02-15 07:19 | Outpatient (CLI) | payer OTHER, MEDICARE, SELFPAY ==
[2018-02-15 08:07] LABS: Anion Gap 9 (5-15); BUN 32 mg/dL (7-18); BUN/Creat Ratio 18.6 RATIO (10-20); Calcium,Total 8.6 mg/dL (8.5-10.1); Chloride 102 mmol/L (98-107); Creatinine, Serum 1.72 mg/dL (0.70-1.30); EST Glomerular Filtration Rate 44 mL/min (>60); Est Glom Filt Rate - Afr Amer 53 mL/min (>60); Glucose 154 mg/dL (74-106); Potassium 3.4 mmol/L (3.5-5.1); Sodium Level 137 mmol/L (136-145)
== END ==
PROVIDERS: Family Provider Internal Medicine; PCP Internal Medicine; Referring Provider Nurse Practitioner Family; Visit Provider Nurse Practitioner Family
DX: I50.32 Chronic diastolic (congestive) heart failure (principal); R06.00 Dyspnea, unspecified
CPT/HCPCS: 36415; 80048

== ENCOUNTER → 2018-03-07 08:31 | Outpatient (CLI) | payer OTHER, MEDICARE, SELFPAY ==
[2018-02-28 09:05] VITALS: BMI 57.4
[2018-03-07 09:36] LABS: International Normalized Ratio 1.1; Prothrombin Time (Protime)PT. 13.7 SECONDS (11.7-14.9)
[2018-03-07 09:37] LABS: Partial Thromboplast Time 30.3 Seconds (24.1-36.2)
[2018-03-07 09:41] LABS: Hematocrit 51.1 % (40-54); Hemoglobin 17.4 g/dl (13.0-16.5); Mean Corp Hgb Conc 34.1 g/gl (32-36); Mean Corpuscular Hgb 29.3 pg (27.0-32.0); Mean Platelet Vol. 10.6 fl (6.2-12.0); Platelet Count 203 K/mm3 (150-450); RBC Distribution Width CV 13.7 % (11.6-14.6); RBC Distribution Width SD 43.1 fl (35.1-43.9); Red Blood Count 5.94 M/mm3 (4.6-6.2); White Blood Count 7.1 K/mm3 (4.4-11.0)
[2018-03-07 09:43] LABS: Scan Indicated on CBC? Y/N NO
== END ==
PROVIDERS: Family Provider Internal Medicine; PCP Internal Medicine; Referring Provider Internal Medicine Nephrology; Visit Provider Internal Medicine Nephrology
DX: R80.8 Other proteinuria (principal)
CPT/HCPCS: 36415; 85027; 85610; 85730

== ENCOUNTER 2018-03-13 09:34 | Outpatient (RCR) | payer OTHER, MEDICARE, SELFPAY ==
[2018-02-28 09:05] VITALS: BMI 57.4
[2018-03-13 10:42] LABS: Albumin, Serum 2.5 g/dL (3.2-5.0); BUN 49 mg/dL (7-18); BUN/Creat Ratio 25.9 RATIO (10-20); Calcium,Total 8.9 mg/dL (8.5-10.1); Chloride 96 mmol/L (98-107); Creatinine, Serum 1.89 mg/dL (0.70-1.30); EST Glomerular Filtration Rate 40 mL/min (>60); Est Glom Filt Rate - Afr Amer 48 mL/min (>60); Glucose 211 mg/dL (74-106); Phosphorus 3.9 mg/dL (2.5-4.9); Potassium 3.2 mmol/L (3.5-5.1); Sodium Level 134 mmol/L (136-145)
== END 2018-03-13 10:34 | disposition home or self-care (01) ==
LOC: LAB 09:34
PROVIDERS: Family Provider Internal Medicine; PCP Internal Medicine; Referring Provider Internal Medicine Nephrology; Visit Provider Internal Medicine Nephrology
DX: N17.9 Acute kidney failure, unspecified (principal)
CPT/HCPCS: 36415; 80069

== ENCOUNTER → 2018-03-29 08:27 | Outpatient (CLI) | payer OTHER, MEDICARE, SELFPAY ==
[2018-02-28 09:05] VITALS: BMI 57.4
[2018-03-29] VITALS (8 sets, daily range): BP systolic 123–188; BP diastolic 53–82; PULSE 59–70; RESP 12–19; TEMP 36.4; O2SAT 94–96; BMI 57.2
--- NOTE | 2018-03-29 08:56 | US_ITS ---
PROCEDURE: Ultrasound Guided CLINICAL HISTORY: Male, 52 years old. CONSENT: Time-Out Called: Yes Consent form signed: YES PT-PTT Levels Checked: Yes SEDATION: TECHNIQUE: FINDINGS: Under ultrasound guidance with the patient in prone position and following proper antisepsis preparation, 18-gauge allison-cut Bard needle was used to obtain 3 biopsies from the lower aspect of the left kidney. The specimens were put in in sterile lab container and sent to the Lab. The patient tolerated the procedure well. Electronically Signed: Kenia Morton, at 16:36 EST Tel , Service support , US/Kidney Biopsy
[2018-03-29 09:05] LABS: Prothrombin Time (Protime)PT. 13.6 SECONDS (11.7-14.9)
[2018-03-29 09:06] LABS: Partial Thromboplast Time 28.1 Seconds (24.1-36.2)
[2018-03-29 09:12] LABS: Albumin, Serum 2.6 g/dL (3.2-5.0); BUN 36 mg/dL (7-18); BUN/Creat Ratio 21.8 RATIO (10-20); Calcium,Total 8.8 mg/dL (8.5-10.1); Chloride 103 mmol/L (98-107); Creatinine, Serum 1.65 mg/dL (0.70-1.30); EST Glomerular Filtration Rate 46 mL/min (>60); Est Glom Filt Rate - Afr Amer 56 mL/min (>60); Glucose 206 mg/dL (74-106); Phosphorus 3.6 mg/dL (2.5-4.9); Potassium 3.6 mmol/L (3.5-5.1); Sodium Level 140 mmol/L (136-145)
--- NOTE | 2018-03-29 10:00 | KI_PTH ---
PATIENT: JAKE BRIZUELA LOC: [place] U#:[id number] AGE/SX: 59/M ROOM: RE03/29/[address]: Dr. Catherine Raymundo DO : 1965 BED: DIS: SPEC #: [id number] RECD: 03/29/18 10:30 STATUS: DANISHA DUNG #: [id number] RITA: 03/29/18 10:[address]: Catherine Raymundo DEPT: SURGICAL PATHOLOGY RECD BY: Amie Reddy ENTERED: 03/29/18 11:18 SP TYPE: KIDNEY BX OTHR DR: Dr. 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 There is also significant chronic change in the interstitium. The underlying etiology of these chronic changes, given the patient's clinical history along with absence of other diagnostic findings is likely diabetic-related nephropathy, although other etiologies cannot be completely excluded. Clinical correlation is recommended. MICROSCOPIC DESCRIPTION A needle biopsy is available to review. There are approximately 12 glomeruli present, 8 of which are globally sclerotic. The non-sclerotic glomeruli show no evidence of crescent formation, segmental scars, necrosis, thrombosis or inflammation. However, the non-sclerotic glomeruli do show a mild increase in mesangial matrix material. PAS, trichrome and silver stains show no evidence of glomerular base membrane double contours, spikes or fuchsinophilic immune-type deposits. The interstitium shows interstitial fibrosis and tubular atrophy involving approximately 50% of the cortical area sampled. There is a mild lymphocytic inflammatory infiltrate in the interstitium in the areas of scarring. Tubules show no casts or evidence of acute tubular necrosis. Vessels show mild arterio- and arteriolosclerosis. IMMUNOFLUORESCENCE: The tissue submitted for immunofluorescence studies contains 3 glomeruli, 1 of which is globally sclerotic. IgG, IgA, IgM, C3, C1q, albumin, fibrinogen, and kappa and lambda light chains all show nonspecific staining. ELECTRON MICROSCOPY: The tissue submitted for electron microscopy studies contain 3 glomeruli, none of which are globally sclerotic. Two glomeruli are imaged. Ultrastructural examination reveals that the glomerular capillary loops are partially compressed by an increase in mesangial matrix material and cellularity. The glomerular basement membranes are of approximately normal caliber. The visceral epithelial foot processes show effacement over approximately 40% of the capillary loop surface area. There are no electron-dense immune-type deposits appreciated. Tubules appear unremarkable. GROSS DESCRIPTION The specimen is sent entirely to [facility] for diagnosis. The case is received in one container labeled with the patient's name and medical record number. In poly-transport medium are four dumont core biopsies of tissue measuring in length from 1.4 cm down to 0.5 cm, each approximately 0.1 cm in width. The renal tissue is dissected and divided for immunofluorescence, electron microscopy and light microscopy.
== END ==
PROVIDERS: Family Provider Internal Medicine; PCP Internal Medicine; Referring Provider Internal Medicine Nephrology; Visit Provider Internal Medicine Nephrology
DX: R80.9 Proteinuria, unspecified (principal)
CPT/HCPCS: 50200; 36415; 76942; 80069; 85610; 85730; 88305; 88313; 88346; 88348; 88350; J7040; A4216

== ENCOUNTER 2018-04-25 07:42 | Outpatient (RCR) | payer OTHER, MEDICARE, SELFPAY ==
[2018-04-17 13:07] VITALS: BMI 57.2
[2018-04-25 08:51] LABS: Albumin, Serum 2.6 g/dL (3.2-5.0); BUN 42 mg/dL (7-18); BUN/Creat Ratio 20.7 RATIO (10-20); Calcium,Total 8.8 mg/dL (8.5-10.1); Chloride 99 mmol/L (98-107); Creatinine, Serum 2.03 mg/dL (0.70-1.30); EST Glomerular Filtration Rate 36 mL/min (>60); Est Glom Filt Rate - Afr Amer 44 mL/min (>60); Glucose 277 mg/dL (74-106); Phosphorus 4.2 mg/dL (2.5-4.9); Potassium 3.4 mmol/L (3.5-5.1); Sodium Level 133 mmol/L (136-145)
--- OUTSIDE RECORDS SUMMARY | 2018-06-27 07:56 | XMS RPT_ITS ---
:1965 Author Organization OHIP Support Name Relationship Address Phone D Unavailable Unavailable Unavailable PYERS, ANTONIA Unavailable [address] + [address] [place] [address] D Unavailable Unavailable Unavailable PYERS, ANTONIA Unavailable [address] + [address] [place] [address] D Unavailable Unavailable Unavailable PYERS, ANOTNIA Unavailable [address] + [address] [place] [address] D Unavailable Unavailable Unavailable PYERS, ANTONIA Unavailable [address] + [address] [place] [address] D Unavailable Unavailable Unavailable PYERS, ANTONIA Unavailable [address] + [address] [place] [address] D Unavailable Unavailable Unavailable PYERS, ANTONIA Unavailable [address] + [address] [place] [address] D Unavailable Unavailable Unavailable PYERS, ANTONIA Unavailable [address] + [address] [place] [address] D Unavailable Unavailable Unavailable PYERS, ANTONIA Unavailable [address] + [address] [place] [address] D Unavailable Unavailable Unavailable PYERS, ANTONIA Unavailable [address] + [address] [place] [address] D Unavailable Unavailable Unavailable PYERS, ANTONIA Unavailable [address] + [address] [place] [address] D Unavailable Unavailable Unavailable PYERS, ANTONIA Unavailable [address] + [address] [place] [address] D Unavailable Unavailable Unavailable PYERS, ANTONIA Unavailable [address] + [address] [place] [address] D Unavailable Unavailable Unavailable PYERS, ANTONIA Unavailable [address] + [address] [place] [address] D Unavailable Unavailable Unavailable PYERS, ANTONIA Unavailable [address] + [address] [place] [address] D Unavailable Unavailable Unavailable PYERS, ANTONIA Unavailable [address] + [address] [place] [address] D Unavailable Unavailable Unavailable PYERS, ANTONIA Unavailable [address] + [address] [place] [address] D Unavailable Unavailable Unavailable PYERS, ANTONIA Unavailable [address] + [address] [place] [address] D Unavailable Unavailable Unavailable PYERS, ANTONIA Unavailable [address] + [address] [place] [address] D Unavailable Unavailable Unavailable PYERS, ANTONIA Unavailable [address] + [address] [place] [address] D Unavailable Unavailable Unavailable PYERS, ANTONIA Unavailable [address] + [address] [place] [address] D Unavailable Unavailable Unavailable PYERS, ANTONIA Unavailable [address] + [address] [place] [address] D Unavailable Unavailable Unavailable PYERS, ANTONIA Unavailable [address] + [address] [place] [address] D Unavailable Unavailable Unavailable PYERS, ANTONIA Unavailable [address] + [address] [place] [address] D Unavailable Unavailable Unavailable PYERS, ANTONIA Unavailable [address] + [address] [place] [address] D Unavailable Unavailable Unavailable PYERS, ANTONIA Unavailable [address] + [address] [place] [address] D Unavailable Unavailable Unavailable PYERS, ANTONAI Unavailable [address] + [address] [place] [address] D Unavailable Unavailable Unavailable PYERS, ANTONIA Unavailable [address] + [address] [place] [address] D Unavailable Unavailable Unavailable PYERS, ANTONIA Unavailable [address] + [address] [place] [address] D Unavailable Unavailable Unavailable PYERS, ANTONIA Unavailable [address] [facility] [address] + [address] [place] [address] Care Team Providers Name Role Phone GANTA, LEIDA Referring Unavailable GANTA, LEIDA Referring Unavailable GANTA, LEIDA Attending Unavailable GANTA, LEIDA Referring Unavailable GANTA, LEIDA Referring Unavailable GANTA, LEIDA Referring Unavailable GANTA, LEIDA Attending Unavailable GANTA, LEDIA Referring Unavailable GANTA, LEIDA Referring Unavailable GANTA, LEIDA Referring Unavailable GANTA, LEIDA Attending Unavailable GANTA, LEIDA Referring Unavailable GANTA, LEIDA Referring Unavailable JOCE STEINER ([facility]) Attending Unavailable GANTA, LEIDA Referring Unavailable GANTA, LEIDA Attending Unavailable GANTA, LEIDA Referring Unavailable GANTA, LEIDA Referring Unavailable GANTA, LEIDA Attending Unavailable GANTA, LEIDA Referring Unavailable GANTA, LEIDA Referring Unavailable GANTA, LEIDA Referring Unavailable GANTA, LEIDA Referring Unavailable GANTA, LEIDA Referring Unavailable GANTA, LEIDA Referring Unavailable GANTA, LEIDA Attending Unavailable GANTA, LEIDA Referring Unavailable GANTA, LEIDA Referring Unavailable GANTA, LEIDA Referring Unavailable GANTA, LEIDA Referring Unavailable GANTA, LEIDA Referring Unavailable GANTA, LEIDA Attending Unavailable GANTA, LEIDA Referring Unavailable Zackary, Catherine Attending Unavailable Zackary, Catherine Referring Unavailable Ganta, Leida Primary Care Unavailable Zackary, Catherine Attending Unavailable Ganta, Leida Primary Care Unavailable Ganta, Leida Primary Care Unavailable [place], [place] Admitting Unavailable Zackary, Catherine Consulting Unavailable Jopperi, Butch Attending Unavailable Teetee, Rafael Consulting Unavailable Paintsil, [place] Admitting Unavailable [place], [place] Attending Unavailable Ganta, Leida Primary Care Unavailable Zackary, Catherine Consulting Unavailable [place], [place] Consulting Unavailable Zackary, Catherine Attending Unavailable Zackary, Catherine Referring Unavailable Ganta, Leida Primary Care Unavailable Zackary, Catherine Attending Unavailable Ganta, Leida Primary Care Unavailable [place], [place] Admitting Unavailable Jopperi, Butch Attending Unavailable Ganta, Leida Primary Care Unavailable Zackary, Catherine Consulting Unavailable Teetee, Rafael Consulting Unavailable Jopperi, Butch Consulting Unavailable [place], [place] Admitting Unavailable Jopperi, Butch Attending Unavailable Ganta, Leida Primary Care Unavailable Zackary, Catherine Consulting Unavailable Teetee, Rafael Consulting Unavailable Jopperi, Butch Consulting Unavailable [place], [place] Admitting Unavailable Jopperi, Butch Attending Unavailable Ganta, Leida Primary Care Unavailable Zackary, Catherine Consulting Unavailable Teetee, Rafael Consulting Unavailable Jopperi, Butch Consulting Unavailable Ganta, Leida Attending Unavailable Ganta, Leida Referring Unavailable Ganta, Leida Primary Care Unavailable Ganta, Leida Primary Care Unavailable Nichole Ely Attending Unavailable Ganta, Leida Primary Care Unavailable Jopperi, Butch Admitting Unavailable Kittoe, Minesh Attending Unavailable Jopperi, Butch Admitting Unavailable Jopperi, Butch Attending Unavailable Ganta, Ledia Primary Care Unavailable Jopperi, Butch Consulting Unavailable Jopperi, Butch Admitting Unavailable Ganta, Leida Primary Care Unavailable KitMinesh georges Consulting Unavailable KittoeMinesh Attending Unavailable Magnus, Tolu Attending Unavailable Magnus, Tolu Referring Unavailable Ganta, Leida Primary Care Unavailable Marianne Recinos Attending Unavailable Daniel, Piero Attending Unavailable Ganta, Leida Referring Unavailable Ganta, Leida Primary Care Unavailable Catherine Raymundo Attending Unavailable Ganta, Leida Primary Care Unavailable Catherine Raymundo Referring Unavailable Daniel, Jefferson Consulting Unavailable Yovanny Lima Attending Unavailable Daniel, Piero Attending Unavailable Daniel, Jefferson Referring Unavailable Ganta, Leida Primary Care Unavailable Yovanny Lima Attending Unavailable Cornici Juan R Referring Unavailable Roof, Quincy H Attending Unavailable Ganta, Leida Referring Unavailable Ganta, Leida Primary Care Unavailable Daniel, Piero Attending Unavailable Daniel, Piero Referring Unavailable Daniel, Piero Attending Unavailable Daniel, Jefferson Referring Unavailable Ganta, Leida Primary Care Unavailable Roof, Quincy H Attending Unavailable Ganta, Leida Referring Unavailable Roof, Quincy H Attending Unavailable Roof, Quincy H Referring Unavailable Ganta, Leida Primary Care Unavailable Roof, Quincy H Attending Unavailable Ganta, Leida Referring Unavailable Zackary, Catherine Attending Unavailable Ganta, Leida Primary Care Unavailable Zackary, Catherine Referring Unavailable Zackary, Catherine Attending Unavailable Zackary, Catherine Referring Unavailable Ganta, Leida Primary Care Unavailable PROBLEMS PROBLEMS DATE TYPE CONDITION / CODE ATTENDING STATUS SOURCE 03/29/2018 Unknown R80.9 - Zackary Caballero Christine Active [facility] unspecified / Community R80.9(ICD-10) Hospital Repository 04/03/2018 Unknown N17.9 - Acute kidney Catherine Raymundo Active [facility] failure, unspecified / Community N17.9(ICD-10) Hospital Repository 02/20/2018 Active 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[facility] plasma-protein [facility] Main metabolism, not [place] elsewhere classified / Repository E88.09(ICD-10) 02/07/2018 Unknown R06.00 - Dyspnea, Quincy Brewster Active [facility] unspecified / Community R06.00(ICD-10) Hospital Repository 02/07/2018 Unknown I50.32 - Chronic Quincy Brewster Active [facility] diastolic (congestive) Community heart failure / Hospital I50.32(ICD-10) Repository 11/02/2017 Active Heart failure, NA Active [facility] unspecified / Clinic Main I50.9(ICD-10) [place] Repository 05/29/2009 Active Proteinuria, NA Active [facility] unspecified / Clinic Main R80.9(ICD-10) [place] Repository 02/03/2018 Active Anemia, unspecified / NA Active [facility] D64.9(ICD-10) Clinic Main [place] Repository 02/03/2018 Active Acute kidney failure, NA Active [facility] unspecified / Clinic Main N17.9(ICD-10) [place] Repository 06/21/2014 Active Edema, unspecified / NA Active [facility] R60.9(ICD-10) Clinic Main [place] Repository 01/20/2018 Active Pain in right leg / NA Active [facility] M79.604(ICD-10) Clinic Main [place] Repository 01/20/2018 Active Pain in left leg / NA Active [facility] M79.605(ICD-10) Clinic Main [place] Repository 01/20/2018 Active Other specified soft NA Active [facility] tissue disorders / Clinic Main M79.89(ICD-10) [place] Repository 01/17/2018 Active Generalized edema / NA Active [facility] R60.1(ICD-10) Clinic Main [place] Repository 01/17/2018 Active Shortness of breath / NA Active [facility] R06.02(ICD-10) Clinic Main [place] Repository 12/26/2017 Unknown I50.31 - Acute Daniel, Jefferson Active [facility] diastolic (congestive) Community heart failure / Hospital I50.31(ICD-10) Repository 11/02/2017 Unknown Z95.1 - Presence of Daniel, Piero Active [facility] aortocoronary bypass Community graft / Z95.1(ICD-10) Hospital Repository 12/06/2017 Unknown R94.31 - Abnormal Yovanny Lima Active [facility] electrocardiogram Community [ECG] [EKG] / Hospital R94.31(ICD-10) Repository 12/06/2017 Unknown I50.9 - Heart failure, Yovanny Lima Active [facility] unspecified / Community I50.9(ICD-10) Hospital Repository 12/06/2017 Unknown I11.0 - Hypertensive Yovanny Lima Active [facility] heart disease with Community heart failure / Hospital I11.0(ICD-10) Repository 12/06/2017 Unknown 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 Repository without angina pectoris / I25.10(ICD-10) 11/17/2017 Unknown I89.0 - Lymphedema, Leida Cisneros Active [facility] not elsewhere Community classified / Hospital I89.0(ICD-10) Repository 09/14/2017 Active Vitamin deficiency, NA Active [place] unspecified / Clinic Main E56.9(ICD-10) [place] Repository 01/06/2016 Active Hyperlipidemia, NA Active [place] unspecified / Clinic Main E78.5(ICD-10) [place] Repository 02/04/2015 Active Essential (primary) NA Active [place] hypertension / Clinic Main I10(ICD-10) [place] Repository 09/01/2017 Unknown L03.90 - Cellulitis, Jopperi, Butch Active [facility] unspecified / Community L03.90(ICD-10) Hospital Repository 06/01/2017 Active Unknown / UNK(Unknown) TROY CISNEROSRA Active [place] [facility] [place] Repository 02/07/2013 Active Type 2 diabetes NA Active [place] mellitus with Clinic Main hyperglycemia / [place] E11.65(ICD-10) Repository 02/07/2013 Active detention (current) [facility] use of insulin / Clinic Main Z79.4(ICD-10) [place] Repository 05/30/2017 Active Other residential NA [facility] (current) drug therapy Clinic Main / Z79.899(ICD-10) [place] Repository PROCEDURES PROCEDURES No Procedure Records FoundRESULTS RESULTS RENAL PROFILE Collected: 04/25/2018 Status: F Source: [place] 7:48 AM [facility] REPOSITORY TYPE CODE TESTS RESULT OUT OF RANGE REFERENCE UNITS LAB L501.0100 74-106 mg/dL High GLU 277 Result Comment: Glucose result greater than or equal to 200 mg/dL suggests DIABETES MELLITUS per A.D.A. criteria. Please note revised GLUCOSE reference range effective 2017. LAB L501.1000 7-18 mg/dL High BUN 42 LAB L501.1100 0.70-1.30 mg/dL High CREAT,SERUM 2.03 Result Comment: The validity of the calculated GFR AND GFRAA in patients over 70 years has not been determined. Clinical correlation is essential. LAB L501.1110 >60 mL/min Low EST GFR 36 Result Comment: Non- GFR Calc LAB L501.1115 >60 mL/min Low EST GFR - AA 44 Result Comment: GFR Calc LAB L501.1300 10-20 RATIO High BUN/CRE 20.7 LAB L501.1800 3.2-5.0 g/dL Low ALB 2.6 LAB L501.2200 8.5-10.1 mg/dL CA Normal 8.8 LAB L501.2300 2.5-4.9 mg/dL Normal PHOS 4.2 LAB L501.5300 136-145 mmol/L Low NA 133 LAB L501.5600 3.5-5.1 mmol/L Low K 3.4 LAB L501.5900 98-107 mmol/L CL Normal 99 LAB L501.6100 21.0-32.0 mmol/L Normal CO2 24.0 Performed By: #### L500.3600 #### [facility] [address] [place] [address]. [place], [place], [address] PROGRESS Observed: 04/20/2018 Status: COMPLETED Source: [place] 9:03 AM [facility] [place] REPOSITORY HNO ID: [id number] Author: Mary (Warehousing Technician) SonamPatrick Service: (none) Author Type: Nurse Practitioner Type: Progress Notes Filed: 04/20/2018 9:16 AM Note Text: Subjective HPI Jake Blankenship is a 53 year old male who presents with some sore spots in his left lower leg for the past 3 days. He states every time he gets a sore leg he gets cellulitis. He has chronic swelling of the left lower leg due to previous surgery on the leg. He has some redness on the medial aspect of the lower leg. He denies any trauma or injury to the leg. No fever at home. He had an US on 01/20/2018 which was normal. Review of Systems Constitutional: Negative. Negative for fever. Respiratory: Negative. Negative for cough and shortness of breath. Cardiovascular: Negative. Negative for chest pain. Gastrointestinal: Negative for nausea and vomiting. Musculoskeletal: Left lower leg pain Skin: Negative. Redness left lower leg BP 130/80 Pulse 65 Temp 37.2 ?C (98.9 ?F) (Left Tympanic) Resp 18 Wt (!) 157.9 kg (348 lb) SpO2 98% BMI 54.50 kg/m? PAST MEDICAL HISTORY Diagnosis Date - CHF (congestive heart failure) ([facility]) 10/18/2017 - Diabetes ([facility]) - Hypertension - [place] (myocardial infarction) ([facility]) 03-12-09 stent placement - Myocardial infarction ([facility]) 03/16/2014 PAST SURGICAL HISTORY Procedure Laterality Date - CABG (5) VENOUS GRAFTS AND ARTERIAL GRAFT(S) 03/17 - PAST SURGICAL HISTORY OF ORIF LMF with pins - REMOVAL OF TONSILS,<12 Y/O Tonsillectomy ALLERGIES Pravachol [Pravastatin Sodium] MEDICATIONS ferrous sulfate 325 mg (65 mg iron) tablet TWICE DAILY WITH MEALS carvedilol (COREG) 25 mg tablet Take 1 tablet by mouth twice daily with meals. atorvastatin (LIPITOR) 40 mg tablet TAKE ONE TABLET BY MOUTH ONCE DAILY AT BEDTIME FOR CHOLESTEROL furosemide (LASIX) 40 mg tablet Take 2 tablets by mouth twice daily. Dosage changed 02/07/18 per [facility] Cardiology Insulin [place], Disposable, (PEN NEEDLE) 32 gauge x 32 ndle Use one pen needle with Toujeo and Humalog injections - 5 needles daily amLODIPine (NORVASC) 10 mg tablet Take 1 tablet by mouth once daily. metOLAzone (ZAROXOLYN) 2.5 mg tablet 1 tablet as needed. Leg swelling. Per [facility] Cardiology insulin lispro (HUMALOG KWIKPEN) 100 unit/mL inpn Inject 30- 50 Units subcutaneously w MEALS. PATIENT ASSISTANCE - EDITH CARES losartan (COZAAR) 100 mg tablet Take 1 tablet by mouth once daily. KLOR-CON M10 10 mEq tablet Take 1 tablet by mouth once daily. COMPOUNDED PRESCRIPTION Rx compression socks. Name of the company- [employer] 20-30 mm compression Natural rubber gripper toe Model # 503 X-short omeprazole (PRILOSEC) 20 mg capsule TAKE ONE CAPSULE BY MOUTH ONCE DAILY albuterol HFA (VENTOLIN HFA) 90 mcg/actuation inhaler Inhale 2 Puffs as instructed every 4 hours as needed for Wheezing/Shortness of Breath. aspirin, enteric coated (ASPIR-81) 81 mg EC tablet Take 1 tablet by mouth once daily. insulin glargine (LANTUS SOLOSTAR U-100 INSULIN) 100 unit/mL (3 mL) inpn Inject 70 Units subcutaneously twice daily. FAMILY HISTORY Problem Relation Age of Onset - Cancer Mother Social History Substance Use Topics - Smoking status: Never Smoker - Smokeless tobacco: Former User Quit date: 01/14/2014 - Alcohol use No Objective Physical Exam Cardiovascular: Normal rate. Pulmonary/Chest: Effort normal. No respiratory distress. Musculoskeletal: Legs: Neurological: He is alert. Skin: Skin is warm and dry. No rash noted. There is erythema. Nursing note and vitals reviewed. ASSESSMENT/PLAN: 1. Bacterial skin infection - ICD9: 686.9, 041.9, ICD10: L08.9, B96.89 - Begin treatment with Cephalaxin (Keflex) - No lymphangetic streaking, this was defined for patient to watch for and to seek medical care immediately if appears - CEPHALEXIN 500 MG CAPSULE - Follow-up with your PCP in 3-5 days if symptoms have not improved or sooner if symptoms worsen - Discussed red flags and need for immediate medical evaluation if any occur. - Discussed supportive care treatment with fluids, rest and analgesia. - Discussed expected course of illness Mary Garcia APRN.[employer] CAPTAIN CNOV Observed: 04/20/2018 Status: COMPLETED Source: [place] 9:00 AM [facility] REPOSITORY Office Visit ([facility]) JAKE BLANKENSHIP ([id number]) 1965 M Date Time Provider Department 04/20/18 9:00 AM MARY GARCIA (ALEX) [facility] During your visit today, we recorded the following information about you: Temperature Pulse Respiration Blood pressure 98.9 degrees 65/minute 18/minute 130/80 Weight 157.9 kg Mary Garcia APRN.CNP 04/20/2018 9:16 AM Signed Subjective HPI Jake Blankenship is a 53 year old male who presents with some sore spots in his left lower leg for the past 3 days. He states every time he gets a sore leg he gets cellulitis. He has chronic swelling of the left lower leg due to previous surgery on the leg. He has some redness on the medial aspect of the lower leg. He denies any trauma or injury to the leg. No fever at home. He had an US on 01/20/2018 which was normal. Review of Systems Constitutional: Negative. Negative for fever. Respiratory: Negative. Negative for cough and shortness of breath. Cardiovascular: Negative. Negative for chest pain. Gastrointestinal: Negative for nausea and vomiting. Musculoskeletal: Left lower leg pain Skin: Negative. Redness left lower leg BP 130/80 Pulse 65 Temp 37.2 ?C (98.9 ?F) (Left Tympanic) Resp 18 Wt (!) 157.9 kg (348 lb) SpO2 98% BMI 54.50 kg/m? PAST MEDICAL HISTORY Diagnosis Date - CHF (congestive heart failure) ([facility]) 10/18/2017 - Diabetes ([facility]) - Hypertension - [place] (myocardial infarction) ([facility]) 03-12-09 stent placement - Myocardial infarction ([facility]) 03/16/2014 PAST SURGICAL HISTORY Procedure Laterality Date - CABG (5) VENOUS GRAFTS AND ARTERIAL GRAFT(S) 03/17 - PAST SURGICAL HISTORY OF ORIF LMF with pins - REMOVAL OF TONSILS,<12 Y/O Tonsillectomy ALLERGIES Pravachol [Pravastatin Sodium] MEDICATIONS ferrous sulfate 325 mg (65 mg iron) tablet TWICE DAILY WITH MEALS carvedilol (COREG) 25 mg tablet Take 1 tablet by mouth twice daily with meals. atorvastatin (LIPITOR) 40 mg tablet TAKE ONE TABLET BY MOUTH ONCE DAILY AT BEDTIME FOR CHOLESTEROL furosemide (LASIX) 40 mg tablet Take 2 tablets by mouth twice daily. Dosage changed 02/07/18 per [facility] Cardiology Insulin [place], Disposable, (PEN NEEDLE) 32 gauge x ndle Use one pen needle with Toujeo and Humalog injections - 5 needles daily amLODIPine (NORVASC) 10 mg tablet Take 1 tablet by mouth once daily. metOLAzone (ZAROXOLYN) 2.5 mg tablet 1 tablet as needed. Leg swelling. Per [facility] Cardiology insulin lispro (HUMALOG KWIKPEN) 100 unit/mL inpn Inject 30- 50 Units subcutaneously w MEALS. PATIENT ASSISTANCE - EDITH CARES losartan (COZAAR) 100 mg tablet Take 1 tablet by mouth once daily. KLOR-CON M10 10 mEq tablet Take 1 tablet by mouth once daily. COMPOUNDED PRESCRIPTION Rx compression socks. Name of the company- [employer] 20-30 mm compression Natural rubber gripper toe Model # 503 X-short omeprazole (PRILOSEC) 20 mg capsule TAKE ONE CAPSULE BY MOUTH ONCE DAILY albuterol HFA (VENTOLIN HFA) 90 mcg/actuation inhaler Inhale 2 Puffs as instructed every 4 hours as needed for Wheezing/Shortness of Breath. aspirin, enteric coated (ASPIR-81) 81 mg EC tablet Take 1 tablet by mouth once daily. insulin glargine (LANTUS SOLOSTAR U-100 INSULIN) 100 unit/mL (3 mL) inpn Inject 70 Units subcutaneously twice daily. FAMILY HISTORY Problem Relation Age of Onset - Cancer Mother Social History Substance Use Topics - Smoking status: Never Smoker - Smokeless tobacco: Former User Quit date: 01/14/2014 - Alcohol use No Objective Physical Exam Cardiovascular: Normal rate. Pulmonary/Chest: Effort normal. No respiratory distress. Musculoskeletal: Legs: Neurological: He is alert. Skin: Skin is warm and dry. No rash noted. There is erythema. Nursing note and vitals reviewed. ASSESSMENT/PLAN: 1. Bacterial skin infection - ICD9: 686.9, 041.9, ICD10: L08.9, B96.89 - Begin treatment with Cephalaxin (Keflex) - No lymphangetic streaking, this was defined for patient to watch for and to seek medical care immediately if appears - CEPHALEXIN 500 MG CAPSULE - Follow-up with your PCP in 3-5 days if symptoms have not improved or sooner if symptoms worsen - Discussed red flags and need for immediate medical evaluation if any occur. - Discussed supportive care treatment with fluids, rest and analgesia. - Discussed expected course of illness FLACA Chen APRN.CNP 04/20/2018 9:10 AM Signed ASSESSMENT/PLAN: 1. Bacterial skin infection - ICD9: 686.9, 041.9, ICD10: L08.9, B96.89 - Begin treatment with Cephalaxin (Keflex) - No lymphangetic streaking, this was defined for patient to watch for and to seek medical care immediately if appears - CEPHALEXIN 500 MG CAPSULE - Follow-up with your PCP in 3-5 days if symptoms have not improved or sooner if symptoms worsen - Discussed red flags and need for immediate medical evaluation if any occur. - Discussed supportive care treatment with fluids, rest and analgesia. - Discussed expected course of illness Mary Garcia APRN.CNP [facility] PATIENT INFO SKIN INFECTION OVERVIEW Cellulitis is an infection of the skin and soft tissue of the skin. The infection is usually caused by bacteria that normally live on the skin, such as staphylococci (Staph) or streptococci (Strep). The infection develops when there is a break in the skin, such as a wound or injury, which may be minor. This allows bacteria to enter the skin and grow, causing infection and swelling. Most cases of cellulitis are mild and heal completely with antibiotic treatment. However, the infection can become severe and cause a bodywide infection if left untreated. It is important to seek medical care promptly if you could have a skin infection. SKIN INFECTION RISK FACTORS Certain conditions increase the risk of developing cellulitis. These include: ? Recent injury to the skin (a wound, abrasion, cut, recent shaving, or injection drug use) ? Swelling of the skin due to radiation therapy ? Current skin infection, such as athlete's foot or impetigo ? Accumulation of fluid (edema) due to poor circulation, heart failure, liver disease, or past surgery to remove lymph nodes ? Being overweight ? Chronic skin conditions, such as eczema or psoriasis However, cellulitis can also develop in people who have no known risk factors. SKIN INFECTION SYMPTOMS Cellulitis ? The most common symptom of cellulitis is pain or tenderness. Other cellulitis symptoms can include swelling, warmth, and redness in a distinct area of skin. These symptoms usually worsen and the redness may expand over the course of a few days. The skin is usually smooth and shiny rather than raised or bumpy. Fever and chills are not common. The most common areas of the body for cellulitis to develop include the legs and the arms; it can also develop around the eye, on the abdominal wall, in the mouth, and around the anus. Other skin infections ? Other types of skin infections include abscesses, furuncles (boils), and carbuncles. These usually cause a collection of pus under the skin. Skin that is raised, reddened, tender, and pus-filled may be caused by a skin infection known as methicillin-resistant Staphylococcus aureus (MRSA). DO I NEED TO BE EXAMINED? There are many types and causes of skin infections, and it is important to know the most likely cause of the infection before beginning treatment. Using the wrong treatment could allow the infection to worsen. To ensure that the correct treatment is used, it is important to be evaluated by a healthcare provider. SKIN INFECTION TREATMENT Cellulitis treatment includes antibiotics as well as treatment of any underlying condition that led to the skin infection. Elevate the area ? Elevating the arm or leg above the level of the heart can help to reduce swelling and speed healing. Keep the area clean and dry ? It is important to keep the infected area clean and dry. You can shower or bathe normally, and pat the area dry with a clean towel. You can use a bandage or gauze to protect the skin, if needed. Do not use any antibiotic ointments or creams. Antibiotics ? Most people with cellulitis are treated with an antibiotic that is taken by mouth for one to two weeks. The best antibiotic depends upon your situation. If the infection is severe, you may need to be hospitalized and treated with antibiotics given into a vein (IV). It is important to take the antibiotic exactly as recommended and to finish the entire course of treatment. Skipping doses or ending treatment early could potentially allow the bacteria to become resistant and require longer treatment. Time to heal ? The swelling, warmth, and redness should begin to improve within one to three days after starting antibiotics, although these symptoms can persist for two weeks. If the reddened area becomes larger, more swollen, or more tender, call your healthcare provider. He or she may want to reexamine you to determine if further testing or an alternate antibiotic are needed. SKIN INFECTION PROGNOSIS In most cases, you will recover completely from an episode of cellulitis without any complications. If you have skin infection risk factors talk to your healthcare provider to determine if there are steps you can take to minimize the risk of infections in the future. Referring Provider: SELF [[id number]] Allergies As of Date: 04/20/2018 Noted Allergy Reaction PRAVACHOL (PRAVASTATIN SODIUM) 08/11/2009 5 - Intolerance Comments: Myalgias/arthralgias. Resolved off med. Date Reviewed: 04/20/2018 Reviewed by: Mary ([facility]) Radha - Fully Assessed Reason for Visit: leg sore [Other] Cmt: Left leg x 4 days Primary Visit Diagnosis:Bacterial skin infection [L08.9, B96.89] Order(s):cephALEXin (KEFLEX) 500 mg capsuleTake 1 capsule by mouth three times daily for 10 days.Disp: 30 capsuleRfl: 0 Prescriptions as of 04/20/2018 Sig: FERROUS SULFATE 325 MG (65 MG* TWICE DAILY WITH MEALS CARVEDILOL 25 MG TABLET Take 1 tablet by mouth twice * ATORVASTATIN 40 MG TABLET TAKE ONE TABLET BY MOUTH ONCE* FUROSEMIDE 40 MG TABLET Take 2 tablets by mouth twice* PEN NEEDLE, DIABETIC 32 GAUGE* Use one pen needle with Touje* AMLODIPINE 10 MG TABLET Take 1 tablet by mouth once d* METOLAZONE 2.5 MG TABLET 1 tablet as needed. Leg swell* INSULIN LISPRO (U-100) 100 UN* Inject 30-50 Units subcutaneo* LOSARTAN 100 MG TABLET Take 1 tablet by mouth once d* KLOR-CON M10 MEQ TABLET,EXTEN* Take 1 tablet by mouth once d* COMPOUNDED PRESCRIPTION Rx compression socks. Name of* OMEPRAZOLE 20 MG CAPSULE,ANAI* TAKE ONE CAPSULE BY MOUTH ONC* ALBUTEROL SULFATE HFA 90 MCG/* Inhale 2 Puffs as instructed * ASPIRIN 81 MG TABLET,DELAYED * Take 1 tablet by mouth once d* CEPHALEXIN 500 MG CAPSULE Take 1 capsule by mouth three* INSULIN GLARGINE (U-100) 100 * Inject 70 Units subcutaneousl* Problem List As Of Date 04/20/2018 Noted Resolved Coronary Artery Disease [I25.10] INVALID FOR* s/p Angioplasty with Stent INVALID FOR* Uncontrolled hypertension [I10] INVALID FOR* More... Hyperlipidemia with target LDL less than 70 [E7*INVALID FOR* Diabetes mellitus (HCC) [E11.9] INVALID FOR*10/15/2013 Proteinuria [R80.9] INVALID FOR* More... Uncontrolled type 2 diabetes mellitus with insu*INVALID FOR* Myocardial infarction (HCC) [I21.9] INVALID FOR* Edema [R60.9] INVALID FOR* MELODIE (obstructive sleep apnea) AHI 11 [G47.33] INVALID FOR* Obesity, Class III, BMI 40-49.9 (morbid obesity*INVALID FOR* Acute on chronic congestive heart failure (HCC)*INVALID FOR* Other instructions from your clinician: ASSESSMENT/PLAN: 1. Bacterial skin infection - ICD9: 686.9, 041.9, ICD10: L08.9, B96.89 - Begin treatment with Cephalaxin (Keflex) - No lymphangetic streaking, this was defined for patient to watch for and to seek medical care immediately if appears - CEPHALEXIN 500 MG CAPSULE - Follow-up with your PCP in 3-5 days if symptoms have not improved or sooner if symptoms worsen - Discussed red flags and need for immediate medical evaluation if any occur. - Discussed supportive care treatment with fluids, rest and analgesia. - Discussed expected course of illness Mary Garcia APRN.[employer] [facility] PATIENT INFO SKIN INFECTION OVERVIEW Cellulitis is an infection of the skin and soft tissue of the skin. The infection is usually caused by bacteria that normally live on the skin, such as staphylococci (Staph) or streptococci (Strep). The infection develops when there is a break in the skin, such as a wound or injury, which may be minor. This allows bacteria to enter the skin and grow, causing infection and swelling. Most cases of cellulitis are mild and heal completely with antibiotic treatment. However, the infection can become severe and cause a bodywide infection if left untreated. It is important to seek medical care promptly if you could have a skin infection. SKIN INFECTION RISK FACTORS Certain conditions increase the risk of developing cellulitis. These include: ? Recent injury to the skin (a wound, abrasion, cut, recent shaving, or injection drug use) ? Swelling of the skin due to radiation therapy ? Current skin infection, such as athlete's foot or impetigo ? Accumulation of fluid (edema) due to poor circulation, heart failure, liver disease, or past surgery to remove lymph nodes ? Being overweight ? Chronic skin conditions, such as eczema or psoriasis However, cellulitis can also develop in people who have no known risk factors. SKIN INFECTION SYMPTOMS Cellulitis ? The most common symptom of cellulitis is pain or tenderness. Other cellulitis symptoms can include swelling, warmth, and redness in a distinct area of skin. These symptoms usually worsen and the redness may expand over the course of a few days. The skin is usually smooth and shiny rather than raised or bumpy. Fever and chills are not common. The most common areas of the body for cellulitis to develop include the legs and the arms; it can also develop around the eye, on the abdominal wall, in the mouth, and around the anus. Other skin infections ? Other types of skin infections include abscesses, furuncles (boils), and carbuncles. These usually cause a collection of pus under the skin. Skin that is raised, reddened, tender, and pus-filled may be caused by a skin infection known as methicillin-resistant Staphylococcus aureus (MRSA). DO I NEED TO BE EXAMINED? There are many types and causes of skin infections, and it is important to know the most likely cause of the infection before beginning treatment. Using the wrong treatment could allow the infection to worsen. To ensure that the correct treatment is used, it is important to be evaluated by a healthcare provider. SKIN INFECTION TREATMENT Cellulitis treatment includes antibiotics as well as treatment of any underlying condition that led to the skin infection. Elevate the area ? Elevating the arm or leg above the level of the heart can help to reduce swelling and speed healing. Keep the area clean and dry ? It is important to keep the infected area clean and dry. You can shower or bathe normally, and pat the area dry with a clean towel. You can use a bandage or gauze to protect the skin, if needed. Do not use any antibiotic ointments or creams. Antibiotics ? Most people with cellulitis are treated with an antibiotic that is taken by mouth for one to two weeks. The best antibiotic depends upon your situation. If the infection is severe, you may need to be hospitalized and treated with antibiotics given into a vein (IV). It is important to take the antibiotic exactly as recommended and to finish the entire course of treatment. Skipping doses or ending treatment early could potentially allow the bacteria to become resistant and require longer treatment. Time to heal ? The swelling, warmth, and redness should begin to improve within one to three days after starting antibiotics, although these symptoms can persist for two weeks. If the reddened area becomes larger, more swollen, or more tender, call your healthcare provider. He or she may want to reexamine you to determine if further testing or an alternate antibiotic are needed. SKIN INFECTION PROGNOSIS In most cases, you will recover completely from an episode of cellulitis without any complications. If you have skin infection risk factors talk to your healthcare provider to determine if there are steps you can take to minimize the risk of infections in the future. Prescriptions ordered this encounter Disp Refills Start End CEPHALEXIN 500 MG CAPSULE 30 c* 0 04/20/2018 04/30/2018 Route: ORAL Sig: Take 1 capsule by mouth three times daily for 10 days. Encounter Status:Closed by MARY GARCIA on 04/20/18 PROGRESS Observed: 04/14/2018 Status: COMPLETED Source: [place] 12:32 PM [facility] [place] REPOSITORY HNO ID: [id number] Author: Leida Cisneros Service: (none) Author Type: Physician Type: Progress Notes Filed: 04/14/2018 5:29 PM Note Text: Reason for Visit Patient presents with: Established Patient: 6 week follow up- meds and swelling and weight gain Jake Blankenship is a 52 year old male who presents here today for Above Complaints.. Health Maintenance BP CONTROLLED (<130/80) DTAP,TDAP,TD(6 - Tdap) COLORECTAL CANCER SCREENING,SEE MODIFIER DILATED RETINAL EXAM HPI Patient is having severe diabetic nephropathy , he did have a kidney biopsy after I spoke with his optimization analyst. Patient is on lasix, 80 , 2 times a day , every other day he is taking 2.5 mgs of metazolone but that has not helped him too loose all his water weight. I think the patient has nephrotic syndrome, likely from Diabetes Mellitus, but the biopsy was to rule out other causes we have Not heard back from his optimization analyst. His Diabetes Mellitus is not well controlled, he did not control his Diet during the holidays. He walks a little during the day, takes 140 unit of toujeou every few days. bp Is decently controlled He is using his sleep machine like he should No problem-specific Assessment AND Plan notes found for this encounter. PAST MEDICAL HISTORY Diagnosis Date - CHF (congestive heart failure) ([facility]) 10/18/2017 - Diabetes ([facility]) - Hypertension - [place] (myocardial infarction) ([facility]) 03-12-09 stent placement - Myocardial infarction (HCC) 03/16/2014 PAST SURGICAL HISTORY Procedure Laterality Date - CABG (5) VENOUS GRAFTS AND ARTERIAL GRAFT(S) 03/17 - PAST SURGICAL HISTORY OF ORIF LMF with pins - REMOVAL OF TONSILS,<12 Y/O Tonsillectomy FAMILY HISTORY Problem Relation Age of Onset - Cancer Mother Social History Substance Use Topics - Smoking status: Never Smoker - Smokeless tobacco: Former User Quit date: 01/14/2014 - Alcohol use No Past medical history, appointments, medications, allergies reviewed. Pertinent Lab/Diagnostic Studies are reviewed and discussed today Current Outpatient Prescriptions: - insulin glargine U-300 conc (TOUJEO MAX U-300 SOLOSTAR) 300 unit/mL (3 mL) inpn - Insulin [place], Disposable, (PEN NEEDLE) 32 gauge x / ndle - furosemide (LASIX) 40 mg tablet - amLODIPine (NORVASC) 10 mg tablet - metOLAzone (ZAROXOLYN) 2.5 mg tablet - atorvastatin (LIPITOR) 40 mg tablet - insulin lispro (HUMALOG KWIKPEN) 100 unit/mL inpn - losartan (COZAAR) 100 mg tablet - KLOR-CON M10 10 mEq tablet - ferrous sulfate 325 mg (65 mg iron) tablet - COMPOUNDED PRESCRIPTION - omeprazole (PRILOSEC) 20 mg capsule - albuterol HFA (VENTOLIN HFA) 90 mcg/actuation inhaler - carvedilol (COREG) 25 mg tablet - aspirin, enteric coated (ASPIR-81) 81 mg EC tablet Review of Systems CONSTITUTIONAL: No fevers, chills night sweats, unintended weight loss CARDIOVASCULAR: No chest pain, dyspnea, palpitations, orthopnea, PND, ankle edema. PULM: No dyspnea, unexplained cough. GI: No dysphagia/odynophagia, problematic reflux, constipation, diarrhea, changes in stool habits, hematochezia, melena. : No new urinary complaints, including dysuria, gross hematuria or pyuria. NEURO: No new balance problems, peripheral weakness/paresthesias or numbness of concern. Physical Exam BP 136/64 (BP Site: Left Arm, BP Position: Sitting, BP Cuff Size: Large Adult) Pulse 66 Resp 20 Ht 170.2 cm (5' 7) Wt (!) 159.7 kg (352 lb) SpO2 94% BMI 55.13 kg/m? General appearance: Well appearing, alert, in no acute distress, well nourished. Skin: Skin color, texture, turgor normal, no suspicious rashes or lesions Head: Normocephalic, no masses, lesions, tenderness or abnormalities Eyes: Anicteric sclera. Pupils are equally round and reactive to light. Extraocular movements are intact. Lungs: Lungs clear to auscultation. No wheezing, rhonchi, rales Heart: RRR without murmur, gallop, or rubs. Extremities: No deformities, edema, skin discoloration, clubbing or cyanosis. Good capillary refill. ASSESSMENT/PLAN: 1. Nephrotic syndrome - ICD9: 581.9, ICD10: N04.9 (primary diagnosis) Patient would like to switch physicians. He also wants to take otc potassium as it would route returner cheaper. - FUROSEMIDE 40 MG TABLET 2. Uncontrolled hypertension - ICD9: 401.9, ICD10: I10 - good control - Recommended regular aerobic exercise. - Recommend home blood pressure monitoring, to bring results in on next visit - Goal of BP <130/80 - CARVEDILOL 25 MG TABLET 3. Hyperlipidemia with target LDL less than 70 - ICD9: 272.4, ICD10: E78.5 - good control - Continue current medication. - ATORVASTATIN 40 MG TABLET 4. Iron deficiency - ICD9: 280.9, ICD10: E61.1 - FERROUS SULFATE 325 MG (65 MG IRON) TABLET LEIDA CISNEROS MD CNOV Observed: 04/14/2018 Status: COMPLETED Source: [place] 12:00 PM [facility] REPOSITORY Office Visit (INT[facility]) JAKE BLANKENSHIP ([id number]) 1965 M Date Time Provider Department 04/14/18 12:00 PM LEIDA CISNEROS IN[facility] During your visit today, we recorded the following information about you: Pulse Respiration Blood pressure Weight 66/minute 20/minute 136/64 159.7 kg Height 1.702 m LEIDA CISNEROS MD 04/14/2018 5:29 PM Signed Reason for Visit Patient presents with: Established Patient: 6 week follow up- meds and swelling and weight gain Jake Blankenship is a 52 year old male who presents here today for Above Complaints.. Health Maintenance BP CONTROLLED (<130/80) DTAP,TDAP,TD(6 - Tdap) COLORECTAL CANCER SCREENING,SEE MODIFIER DILATED RETINAL EXAM HPI Patient is having severe diabetic nephropathy , he did have a kidney biopsy after I spoke with his optimization analyst. Patient is on lasix, 80 , 2 times a day , every other day he is taking 2.5 mgs of metazolone but that has not helped him too loose all his water weight. I think the patient has nephrotic syndrome, likely from Diabetes Mellitus, but the biopsy was to rule out other causes we have Not heard back from his optimization analyst. His Diabetes Mellitus is not well controlled, he did not control his Diet during the holidays. He walks a little during the day, takes 140 unit of toujeou every few days. bp Is decently controlled He is using his sleep machine like he should No problem-specific Assessment AND Plan notes found for this encounter. PAST MEDICAL HISTORY Diagnosis Date - CHF (congestive heart failure) ([facility]) 10/18/2017 - Diabetes ([facility]) - Hypertension - [place] (myocardial infarction) ([facility]) 03-12-09 stent placement - Myocardial infarction ([facility]) 03/16/2014 PAST SURGICAL HISTORY Procedure Laterality Date - CABG (5) VENOUS GRAFTS AND ARTERIAL GRAFT(S) 03/17 - PAST SURGICAL HISTORY OF ORIF LMF with pins - REMOVAL OF TONSILS,<12 Y/O Tonsillectomy FAMILY HISTORY Problem Relation Age of Onset - Cancer Mother Social History Substance Use Topics - Smoking status: Never Smoker - Smokeless tobacco: Former User Quit date: 01/14/2014 - Alcohol use No Past medical history, appointments, medications, allergies reviewed. Pertinent Lab/Diagnostic Studies are reviewed and discussed today Current Outpatient Prescriptions: - insulin glargine U-300 conc (TOUJEO MAX U-300 SOLOSTAR) 300 unit/mL (3 mL) inpn - Insulin [place], Disposable, (PEN NEEDLE) 32 gauge x ndle - furosemide (LASIX) 40 mg tablet - amLODIPine (NORVASC) 10 mg tablet - metOLAzone (ZAROXOLYN) 2.5 mg tablet - atorvastatin (LIPITOR) 40 mg tablet - insulin lispro (HUMALOG KWIKPEN) 100 unit/mL inpn - losartan (COZAAR) 100 mg tablet - KLOR-CON M10 10 mEq tablet - ferrous sulfate 325 mg (65 mg iron) tablet - COMPOUNDED PRESCRIPTION - omeprazole (PRILOSEC) 20 mg capsule - albuterol HFA (VENTOLIN HFA) 90 mcg/actuation inhaler - carvedilol (COREG) 25 mg tablet - aspirin, enteric coated (ASPIR-81) 81 mg EC tablet Review of Systems CONSTITUTIONAL: No fevers, chills night sweats, unintended weight loss CARDIOVASCULAR: No chest pain, dyspnea, palpitations, orthopnea, PND, ankle edema. PULM: No dyspnea, unexplained cough. GI: No dysphagia/odynophagia, problematic reflux, constipation, diarrhea, changes in stool habits, hematochezia, melena. : No new urinary complaints, including dysuria, gross hematuria or pyuria. NEURO: No new balance problems, peripheral weakness/paresthesias or numbness of concern. Physical Exam BP 136/64 (BP Site: Left Arm, BP Position: Sitting, BP Cuff Size: Large Adult) Pulse 66 Resp 20 Ht 170.2 cm (5' 7) Wt (!) 159.7 kg (352 lb) SpO2 94% BMI 55.13 kg/m? General appearance: Well appearing, alert, in no acute distress, well nourished. Skin: Skin color, texture, turgor normal, no suspicious rashes or lesions Head: Normocephalic, no masses, lesions, tenderness or abnormalities Eyes: Anicteric sclera. Pupils are equally round and reactive to light. Extraocular movements are intact. Lungs: Lungs clear to auscultation. No wheezing, rhonchi, rales Heart: RRR without murmur, gallop, or rubs. Extremities: No deformities, edema, skin discoloration, clubbing or cyanosis. Good capillary refill. ASSESSMENT/PLAN: 1. Nephrotic syndrome - ICD9: 581.9, ICD10: N04.9 (primary diagnosis) Patient would like to switch physicians. He also wants to take otc potassium as it would route returner cheaper. - FUROSEMIDE 40 MG TABLET 2. Uncontrolled hypertension - ICD9: 401.9, ICD10: I10 - good control - Recommended regular aerobic exercise. - Recommend home blood pressure monitoring, to bring results in on next visit - Goal of BP <130/80 - CARVEDILOL 25 MG TABLET 3. Hyperlipidemia with target LDL less than 70 - ICD9: 272.4, ICD10: E78.5 - good control - Continue current medication. - ATORVASTATIN 40 MG TABLET 4. Iron deficiency - ICD9: 280.9, ICD10: E61.1 - FERROUS SULFATE 325 MG (65 MG IRON) TABLET LEIDA CISNEROS MD Referring Provider: LEIDA CISNEROS [[id number]] Allergies As of Date: 04/14/2018 Noted Allergy Reaction PRAVACHOL (PRAVASTATIN SODIUM) 08/11/2009 5 - Intolerance Comments: Myalgias/arthralgias. Resolved off med. Date Reviewed: 04/14/2018 Reviewed by: Dominga Stauffer LPN - Fully Assessed Reason for Visit: Established Patient [175] Cmt: 6 week follow up- meds and swelling and weight gain Primary Visit Diagnosis:Nephrotic syndrome [N04.9] Other Visit Diagnoses:Uncontrolled hypertension [I10] Hyperlipidemia with target LDL less than 70 [E78.5] Iron deficiency [E61.1] Hypokalemia [E87.6] Order(s):ferrous sulfate 325 mg (65 mg iron) tabletTWICE DAILY WITH MEALSDisp: 60 tabletRfl: 5 carvedilol (COREG) 25 mg tabletTake 1 tablet by mouth twice daily with meals.Disp: 60 tabletRfl: 11 atorvastatin (LIPITOR) 40 mg tabletTAKE ONE TABLET BY MOUTH ONCE DAILY AT BEDTIME FOR CHOLESTEROLDisp: 30 tabletRfl: 5 furosemide (LASIX) 40 mg tabletTake 2 tablets by mouth twice daily. [facility] CardiologyDisp: 120 tabletRfl: 3 BASIC METABOLIC PNL [SQBMP] Order #: [id number] FUTURE Prescriptions as of 04/14/2018 Sig: FERROUS SULFATE 325 MG (65 MG* TWICE DAILY WITH MEALS CARVEDILOL 25 MG TABLET Take 1 tablet by mouth twice * ATORVASTATIN 40 MG TABLET TAKE ONE TABLET BY MOUTH ONCE* FUROSEMIDE 40 MG TABLET Take 2 tablets by mouth twice* INSULIN GLARGINE (U-300) CONC* Inject 140 Units subcutaneous* PEN NEEDLE, DIABETIC 32 GAUGE* Use one pen needle with Touje* AMLODIPINE 10 MG TABLET Take 1 tablet by mouth once d* METOLAZONE 2.5 MG TABLET 1 tablet as needed. Leg swell* INSULIN LISPRO (U-100) 100 UN* Inject 30-50 Units subcutaneo* LOSARTAN 100 MG TABLET Take 1 tablet by mouth once d* KLOR-CON M10 MEQ TABLET,EXTEN* Take 1 tablet by mouth once d* COMPOUNDED PRESCRIPTION Rx compression socks. Name of* OMEPRAZOLE 20 MG CAPSULE,ANAI* TAKE ONE CAPSULE BY MOUTH ONC* ALBUTEROL SULFATE HFA 90 MCG/* Inhale 2 Puffs as instructed * ASPIRIN 81 MG TABLET,DELAYED * Take 1 tablet by mouth once d* Problem List As Of Date 04/14/2018 Noted Resolved Coronary Artery Disease [I25.10] INVALID FOR* s/p Angioplasty with Stent INVALID FOR* Uncontrolled hypertension [I10] INVALID FOR* More... Hyperlipidemia with target LDL less than 70 [E7*INVALID FOR* Diabetes mellitus (HCC) [E11.9] INVALID FOR*10/15/2013 Proteinuria [R80.9] INVALID FOR* More... Uncontrolled type 2 diabetes mellitus with insu*INVALID FOR* Myocardial infarction (HCC) [I21.9] INVALID FOR* Edema [R60.9] INVALID FOR* MELODIE (obstructive sleep apnea) AHI 11 [G47.33] INVALID FOR* Obesity, Class III, BMI 40-49.9 (morbid obesity*INVALID FOR* Acute on chronic congestive heart failure (HCC)*INVALID FOR* Prescriptions ordered this encounter Disp Refills Start End FERROUS SULFATE 325 MG (65 MG IRON) * 60 t* 5 04/14/2018 Sig: TWICE DAILY WITH MEALS CARVEDILOL 25 MG TABLET 60 t* 11 04/14/2018 Route: ORAL Sig: Take 1 tablet by mouth twice daily with meals. ATORVASTATIN 40 MG TABLET 30 t* 5 04/14/2018 Sig: TAKE ONE TABLET BY MOUTH ONCE DAILY AT BEDTIME FOR CHOLESTEROL FUROSEMIDE 40 MG TABLET 120 * 3 04/14/2018 Route: ORAL Sig: Take 2 tablets by mouth twice daily. Dosage changed 02/07/18 per [facility] Cardiology Medications Discontinued During This Encounter ferrous sulfate 325 mg (65 mg iron) * 60 t* 5 11/15/2017 04/14/2018 Sig: TWICE DAILY WITH MEALS Disc: Reason for discontinue is not on file. carvedilol (COREG) 25 mg tablet 60 t* 11 04/11/2017 04/14/2018 Cmt: This is in place of metoprolol succinate Route: ORAL Sig: Take 1 tablet by mouth twice daily with meals. Disc: Reason for discontinue is not on file. atorvastatin (LIPITOR) 40 mg tablet 30 t* 5 01/13/2018 04/14/2018 Cmt: Please consider 90 day supplies to promote better adherence Sig: TAKE ONE TABLET BY MOUTH ONCE DAILY AT BEDTIME FOR CHOLESTEROL Disc: Reason for discontinue is not on file. furosemide (LASIX) 40 mg tablet 120 * 3 02/13/2018 04/14/2018 Route: ORAL Sig: Take 2 tablets by mouth twice daily. Dosage changed 02/07/18 per [facility] Cardiology Disc: Reason for discontinue is not on file. Encounter Status:Closed by LEIDA CISNEROS MD on 04/14/18 [place] [facility] Observed: 04/14/2018 Status: COMPLETED Source: [place] 12:00 AM [facility] REPOSITORY Telephone ([facility]) JAKE BLANKENSHIP ([id number]) 1965 M Date Time Provider Department 04/14/18 RUBEN (PHARMACIST)BJ [facility] During your visit today, we recorded the following information about you: YESY CERVANTES 04/14/2018 5:14 PM Signed Patient called PharmElissa and left stating that insurance is not going to cover Edgar Cintron, would like PharmD to call him back Forwarding to PharmElissa who works with patient Bj Portillo PharmD, [facility] Primary Care Clinical Pharmacist [facility] SAMAN PARKINSON PHARMACIST 04/17/2018 8:40 AM Signed Called and spoke with patient. Will attempt Tresiba prescription Saman Parkinson PharmD, [facility] April 17, 2018 8:40 AM YESY PAGAN 04/17/2018 8:40 AM Signed Addended by: TESHA LeviPHARMACIST)SAMAN on: 04/17/2018 08:40 AM Modules accepted: YESY Langston 04/17/2018 12:21 PM Signed Patient called Rere not covered. Will have patient contact insurance for insulin coverage Saman Parkinson PharmD, [facility] April 17, 2018 12:21 PM YESY PAGAN 04/17/2018 12:49 PM Signed Addended by: TESHA LeviPHARMACISTSAMAN Andrews on: 04/17/2018 12:49 PM Modules accepted: YESY Langston 04/17/2018 5:01 PM Signed All brand name insulins with co pay > $500. Will send NPH prescription. Alternative plan is PAP Saman Parkinson PharmD, [facility] April 17, 2018 5:01 PM YESY PAGAN 04/17/2018 5:01 PM Signed Addended by: TESHA LeviPHARMACIST)SAMAN on: 04/17/2018 05:01 PM Modules accepted: YESY Snow 04/19/2018 1:10 PM Signed Patient called PharmD asking to talk to Saman about an insulin coupon Patient said he would be at [facility] this evening and was hoping to flower picker the insulin coupon Not sure what patient is referring to specifically - will forward to PharmElissa who has been working with patient regarding insulin cost Bj Portillo PharmD, [facility] Primary Care Clinical Pharmacist [facility] YESY PAGAN 04/19/2018 1:42 PM Signed Called patient. NPH in not affordable for him. Will facilitate Lantus PAP for patient. Income docs should be in PharmD office from Humalog PAP. Patient will stop by on 04/20 at 10:30am to sign the application. Saman Parkinson PharmD, [facility] April 19, 2018 1:40 PM YESY PAGAN 04/19/2018 1:42 PM Signed Addended by: TESHA LeviPHARMACISTSAMAN Andrews on: 04/19/2018 01:42 PM Modules accepted: Yesy Castrejon 04/21/2018 9:17 AM Signed Patient stopped by office and signed application on 04/20/18. Placed completed PAP application on PCP's (Dr. Leida Salinas) desk for signature. Once application is signed, will fax application. Kinsey Sarah PharmD, BCACP Primary Care Clinical Marine Machinist [facility] ? Yesy Pinto 04/21/2018 4:04 PM Signed Received signed PAP application back from PCP. Faxed PAP application to [employer], f: . Kinsey Sarah PharmD, [facility] Primary Care Clinical Marine Machinist [facility] SAMAN PARKNISON PHARMACIST 04/26/2018 10:49 AM Signed Called [facility] patient assistance, was told patient is not eligible due to having commercial insurance. They do not provide patient assistance for deductible cost. Was advised to call the [employer] savings card. [phone] Was advised that the savings card can save up to $1,400 per [address] supply[address] Called [facility] pharmacy and had them run the Lantus prescription. They applied the savings card, and the patient's co-pay is $0 for 3 boxes of Lantus. Called patient, so he is aware He has enough mealtime insulin for now. Still waiting on [facility] for his Humalog delivery. Saman Parkinson PharmD, [facility] April 26, 2018 10:49 AM Allergies As of Date: 04/14/2018 Noted Allergy Reaction PRAVACHOL (PRAVASTATIN SODIUM) 08/11/2009 5 - Intolerance Comments: Myalgias/arthralgias. Resolved off med. Date Reviewed: 04/14/2018 Reviewed by: Dominga Stauffer LPN - Fully Assessed Reason for Visit: Patient Update [1234] Order(s):insulin glargine (LANTUS SOLOSTAR U-100 INSULIN) 100 unit/mL (3 mL) inpnInject 70 Units subcutaneously twice daily.Disp: 15 PenRfl: 5 Prescriptions as of 04/14/2018 Sig: INSULIN GLARGINE (U-100) 100 * Inject 70 Units subcutaneousl* FERROUS SULFATE 325 MG (65 MG* TWICE DAILY WITH MEALS CARVEDILOL 25 MG TABLET Take 1 tablet by mouth twice * ATORVASTATIN 40 MG TABLET TAKE ONE TABLET BY MOUTH ONCE* FUROSEMIDE 40 MG TABLET Take 2 tablets by mouth twice* PEN NEEDLE, DIABETIC 32 GAUGE* Use one pen needle with Touje* AMLODIPINE 10 MG TABLET Take 1 tablet by mouth once d* METOLAZONE 2.5 MG TABLET 1 tablet as needed. Leg swell* INSULIN LISPRO (U-100) 100 UN* Inject 30-50 Units subcutaneo* LOSARTAN 100 MG TABLET Take 1 tablet by mouth once d* KLOR-CON M10 MEQ TABLET,EXTEN* Take 1 tablet by mouth once d* COMPOUNDED PRESCRIPTION Rx compression socks. Name of* OMEPRAZOLE 20 MG CAPSULE,ANAI* TAKE ONE CAPSULE BY MOUTH ONC* ALBUTEROL SULFATE HFA 90 MCG/* Inhale 2 Puffs as instructed * ASPIRIN 81 MG TABLET,DELAYED * Take 1 tablet by mouth once d* Problem List As Of Date 04/14/2018 Noted Resolved Coronary Artery Disease [I25.10] INVALID FOR* s/p Angioplasty with Stent INVALID FOR* Uncontrolled hypertension [I10] INVALID FOR* More... Hyperlipidemia with target LDL less than 70 [E7*INVALID FOR* Diabetes mellitus (HCC) [E11.9] INVALID FOR*10/15/2013 Proteinuria [R80.9] INVALID FOR* More... Uncontrolled type 2 diabetes mellitus with insu*INVALID FOR* Myocardial infarction (HCC) [I21.9] INVALID FOR* Edema [R60.9] INVALID FOR* MELODIE (obstructive sleep apnea) AHI 11 [G47.33] INVALID FOR* Obesity, Class III, BMI 40-49.9 (morbid obesity*INVALID FOR* Acute on chronic congestive heart failure (HCC)*INVALID FOR* Prescriptions ordered this encounter Disp Refills Start End INSULIN DEGLUDEC (U-200) 200 UNIT/ML* 9 Pen 1 04/17/2018 04/17/2018 Route: SUBCUTANEOUS Sig: Inject 140 Units subcutaneously daily at bedtime. INSULIN GLARGINE (U-100) 100 UNIT/ML* 15 P* 5 04/17/2018 Route: SUBCUTANEOUS Sig: Inject 70 Units subcutaneously twice daily. INSULIN NPH ISOPHANE U-100 HUMAN 100* 5 Vi* 5 04/17/2018 04/19/2018 Cmt: Relion Sig: Inject 70 units subcutaneously before breakfast and 70 Units before dinner INSULIN SYRINGE U-100 WITH NEEDLE 1 * 100 * 3 04/17/2018 04/19/2018 Sig: Use with nph insulin twice daily Medications Discontinued During This Encounter insulin glargine U-300 conc (TOUJEO * 6 Pen 5 03/13/2018 04/17/2018 Cmt: Cancel any other Toujeo prescriptions please Route: SUBCUTANEOUS Sig: Inject 140 Units subcutaneously every morning. Disc: Changing Therapy/Dosage Form insulin degludec (TRESIBA FLEXTOUCH * 9 Pen 1 04/17/2018 04/17/2018 Route: SUBCUTANEOUS Sig: Inject 140 Units subcutaneously daily at bedtime. Disc: Reason for discontinue is not on file. insulin NPH human (NOVOLIN N NPH U-1* 5 Vi* 5 04/17/2018 04/19/2018 Cmt: Relion Sig: Inject 70 units subcutaneously before breakfast and 70 Units before dinner Disc: Reason for discontinue is not on file. Insulin Syringe-Needle U-100 1 mL 31* 100 * 3 04/17/2018 04/19/2018 Sig: Use with nph insulin twice daily Disc: Reason for discontinue is not on file. Follow-up and Disposition History Recorded Encounter Status:Closed by RUBEN (PHARMACIST)BJ on 04/14/18 PROGRESS Observed: 04/11/2018 Status: COMPLETED Source: [place] 9:00 AM [facility] REPOSITORY HNO ID: [id number] Author: Saman Parkinson (Pharmacist) Service: (none) Author Type: Pharmacist Type: Progress Notes Filed: 04/11/2018 9:30 AM Note Text: Patient consents to pharmacy collaborative practice agreement. REASON FOR CONSULT: DM? GOALS: A1c <?8% CONSULTING PROVIDER: Dr. Cisneros?? Date of Consult: 02/2017 Jake Blankenship is a 52 year old male was last seen in [facility] by PCP, Dr. LEIDA CISNEROS MD on 02/17/18 Patient is presenting today for f/u pharmacotherapy management appointment for DM. At last PharmD visit on 02/13 no med changes were made, patient was to call with home BP readings INTERIM HISTORY: Patient did not call with home readings Reports feeling well Legs still swelling, seeing [facility] Nephrology Had labwork in March, also got labs here this AM Klor-con too expensive Past DM medications: Metformin - stopped during hospitalization, patient refuses to re-start Current DM Medications: Insulin glargine MAX 300 units/mL 140 units QAM Insulin lispro 50 units TID meals (if pre-meal BG is 140 or more he takes 50, otherwise takes 30-40) will take some at night if having a snack) Current HTN Medications: Amlodipine 10mg once daily Carvedilol 25mg BID Losartan 100mg once daily Furosemide 80mg BID Metolazone 2.5mg QOD Preventative Medications: ? On GEENA/ARB: Yes ? On Statin: Yes ? On ASA: Yes ROS: ? Patient denies CP, SOB, PEREZ, blurred vision, dizziness or lightheadedness ? Patient denies symptoms of hypoglycemia (sweating, anxiety, palpitations, hunger, and tremor) ? Patient denies symptoms of hyperglycemia (polyuria, polydipsia, polyphagia) ? Patient denies potential medication adverse effects DIET/EXERCISE/SOCIAL Hx: ? Was told NOT to do keto diet given renal fxn ? Diet worse during holidays ? Working on getting back on track MEDICATIONS: ? Pill bottles are present. ? Adherence: denies missed doses. ? [facility]acy: [facility] ? Rx coverage: [employer] and Medicare ? Affordability: potassium too expensive, PAP for Humalog, voucher for Toujeo ? Diabetes supplies: Relion ? Organization System: [employer] ACTIVE PROBLEM LIST Coronary Artery Disease S/P Angioplasty With Stent Uncontrolled Hypertension Hyperlipidemia With Target Ldl Less Than 70 Proteinuria Uncontrolled Type 2 Diabetes Mellitus With Insulin Therapy ([facility]) Myocardial Infarction ([facility]) Edema MELODIE (obstructive sleep apnea) AHI 11 Obesity, Class Iii, Bmi 40-49.9 (Morbid Obesity) ([facility]) Acute On Chronic Congestive Heart Failure ([facility]) PAST MEDICAL HISTORY Diagnosis Date - CHF (congestive heart failure) ([facility]) 10/18/2017 - Diabetes ([facility]) - Hypertension - [place] (myocardial infarction) ([facility]) 03-12-09 stent placement - Myocardial infarction ([facility]) 03/16/2014 ALLERGIES Allergen Reactions - Pravachol [Pravasta* Intolerance Myalgias/arthralgias. Resolved off med. Medication List Medication Directions Comments Action/Plan albuterol HFA (VENTOLIN HFA) 90 mcg/actuation inhaler Inhale 2 Puffs as instructed every 4 hours as needed for Wheezing/Shortness of Breath. amLODIPine (NORVASC) 10 mg tablet Take 1 tablet by mouth once daily. aspirin, enteric coated (ASPIR-81) 81 mg EC tablet Take 1 tablet by mouth once daily. atorvastatin (LIPITOR) 40 mg tablet TAKE ONE TABLET BY MOUTH ONCE DAILY AT BEDTIME FOR CHOLESTEROL carvedilol (COREG) 25 mg tablet Take 1 tablet by mouth twice daily with meals. COMPOUNDED PRESCRIPTION Rx compression socks. Name of the company- [employer] 20-30 mm compression Natural rubber gripper toe Model # 503 X-short ferrous sulfate 325 mg (65 mg iron) tablet TWICE DAILY WITH MEALS furosemide (LASIX) 40 mg tablet Take 2 tablets by mouth twice daily. Dosage changed 02/07/18 per [facility] Cardiology insulin glargine U-300 conc (TOUJEO MAX U-300 SOLOSTAR) 300 unit/mL (3 mL) inpn Inject 140 Units subcutaneously every morning. insulin lispro (HUMALOG KWIKPEN) 100 unit/mL inpn Inject 30- 50 Units subcutaneously w MEALS. PATIENT ASSISTANCE - [facility] Insulin [place], Disposable, (PEN NEEDLE) 32 gauge x 5/32 ndle Use one pen needle with Toujeo and Humalog injections - 5 needles daily KLOR-CON M10 10 mEq tablet Take 1 tablet by mouth once daily. losartan (COZAAR) 100 mg tablet Take 1 tablet by mouth once daily. metOLAzone (ZAROXOLYN) 2.5 mg tablet 1 tablet as needed. Leg swelling. Per [facility] Cardiology omeprazole (PRILOSEC) 20 mg capsule TAKE ONE CAPSULE BY MOUTH ONCE DAILY GLYCEMIC CONTROL: ? Glucometer present at visit: No ? Hypoglycemia: denies Last 3 Encounter BP Readings: Date: BP: 02/17/2018 140/76 02/03/2018 130/90 01/17/2018 146/82 Wt: 157.9 kg (348 lb) BMI: 54.50 kg/(m2) LABS Lab Results Component Value Date HBA1C 7.7 02/03/2018 HBA1C 7.4 01/17/2018 HBA1C 6.8 11/01/2017 CMP: Glucose 141 02/03/2018 BUN 23 02/03/2018 Creatinine 1.57 02/03/2018 Sodium 139 02/03/2018 Potassium 4.0 02/03/2018 Chloride 104 02/03/2018 CO2 21 02/03/2018 Protein, Total 6.7 02/03/2018 Albumin 2.8 02/03/2018 Calcium 8.9 02/03/2018 Alkaline Phosphatase 94 02/03/2018 Bilirubin, Total 0.3 02/03/2018 AST 27 02/03/2018 ALT 24 02/03/2018 GFR 46 Estimated Creatinine Clearance: 78.2 mL/min (A) (based on SCr of 1.57 mg/dL (H)). Last Lipid Panel Lab Results Component Value Date CHOL 135 02/02/2017 Lab Results Component Value Date HDL 29 02/02/2017 Lab Results Component Value Date LDL 62 02/02/2017 Lab Results Component Value Date TG 219 02/02/2017 Albumin/Creat Ratio (mg/g) Date Value 02/02/2017 1,727 (H) PHARMACOTHERAPY ASSESSMENT/PLAN: 1. Uncontrolled type 2 diabetes mellitus with insulin therapy (HCC) - ICD9: 250.02, V58.67, ICD10: E11.65, Z79.4 (primary diagnosis) A1c goal <?8%, patient is?at goal. Due for recheck. SMBGs not at goal during holidays, but patient will go back to stricter diet. Patient compliant with and tolerating current regimen. Will continue current regimen at this time and make further adjustments with more BG data. Renal fxn improved back to baseline (TALITA in hospital) (could re-initiate metformin but patient reluctant d/t feeling better without it, likes taking fewer pills,?will continue to hold for now, can re- address at future visits)?and LFTs WNL?and appropriate for continued therapy. ? CONTINUE insulin glargine 140 units QAM and lispro 30-50?units TID meals ? Instructed patient to continue checking BGs, bring glucometer to next visit ? Labs completed today 2. Uncontrolled hypertension - ICD9: 401.9, ICD10: I10 BP goal <?130/80, pt is not?at goal on current therapy. Unable to obtain BP today.?Tolerating and compliant with therapy. BP therapies at max doses. Follows closely with [facility] Cardiology and Nephrology. Continue regimen at this time. Renal fxn and K+ WNL. ? CONTINUE losartan 100mg, amlodipine 10mg once daily, carvedilol 25mg BID, furosemide 80mg BID, metolazone 2.5mg daily ? Could add back spironolactone for additional BP-lowering (will stop K supplement if re-starting spironolactone, patient to discuss with Nephrology). ? Instructed patient to check BPs daily 3. Medication management - ICD9: V58.69, ICD10: Z79.899 - Latricex coupon provided for potassium. Patient to discuss spironolactone with Nephrology. Patient is scheduled to see PCP 04/14. Patient to return to clinic for PharmD f/u on 05/08. Patient verbalized understanding of instructions. Saman Parkinson PharmD, BCPS CNOV Observed: 04/11/2018 Status: COMPLETED Source: [place] 9:00 AM [facility] REPOSITORY Office Visit ([facility]) RUBÉNJAKE CHACKO ([id number]) 1965 M Date Time Provider Department 04/11/18 9:00 AM TESHA (PHARMACIST), SAMAN SKELTON During your visit today, we recorded the following information about you: Weight 159.2 kg YESY PAGAN 04/11/2018 9:30 AM Signed Patient consents to pharmacy collaborative practice agreement. REASON FOR CONSULT: DM? GOALS: A1c <?8% CONSULTING PROVIDER: Dr. Cisneros?? Date of Consult: 02/2017 Jake Flynn Blankenship is a 52 year old male was last seen in [facility] by PCP, Dr. LEIDA CISNEROS MD on 02/17/18 Patient is presenting today for f/u pharmacotherapy management appointment for DM. At last PharmD visit on 02/13 no med changes were made, patient was to call with home BP readings INTERIM HISTORY: Patient did not call with home readings Reports feeling well Legs still swelling, seeing [facility] Nephrology Had labwork in March, also got labs here this AM Klor-con too expensive Past DM medications: Metformin - stopped during hospitalization, patient refuses to re-start Current DM Medications: Insulin glargine MAX 300 units/mL 140 units QAM Insulin lispro 50 units TID meals (if pre-meal BG is 140 or more he takes 50, otherwise takes 30-40) will take some at night if having a snack) Current HTN Medications: Amlodipine 10mg once daily Carvedilol 25mg BID Losartan 100mg once daily Furosemide 80mg BID Metolazone 2.5mg QOD Preventative Medications: ? On GEENA/ARB: Yes ? On Statin: Yes ? On ASA: Yes ROS: ? Patient denies CP, SOB, PEREZ, blurred vision, dizziness or lightheadedness ? Patient denies symptoms of hypoglycemia (sweating, anxiety, palpitations, hunger, and tremor) ? Patient denies symptoms of hyperglycemia (polyuria, polydipsia, polyphagia) ? Patient denies potential medication adverse effects DIET/EXERCISE/SOCIAL Hx: ? Was told NOT to do keto diet given renal fxn ? Diet worse during holidays ? Working on getting back on track MEDICATIONS: ? Pill bottles are present. ? Adherence: denies missed doses. ? [facility]acy: [facility] ? Rx coverage: [employer]X and Medicare ? Affordability: potassium too expensive, PAP for Humalog, voucher for Toujeo ? Diabetes supplies: [employer] ? Organization System: [employer] ACTIVE PROBLEM LIST Coronary Artery Disease S/P Angioplasty With Stent Uncontrolled Hypertension Hyperlipidemia With Target Ldl Less Than 70 Proteinuria Uncontrolled Type 2 Diabetes Mellitus With Insulin Therapy ([facility]) Myocardial Infarction ([facility]) Edema MELODIE (obstructive sleep apnea) AHI 11 Obesity, Class Iii, Bmi 40-49.9 (Morbid Obesity) ([facility]) Acute On Chronic Congestive Heart Failure ([facility]) PAST MEDICAL HISTORY Diagnosis Date - CHF (congestive heart failure) ([facility]) 10/18/2017 - Diabetes ([facility]) - Hypertension - [place] (myocardial infarction) ([facility]) 03-12-09 stent placement - Myocardial infarction ([facility]) 03/16/2014 ALLERGIES Allergen Reactions - Pravachol [Pravasta* Intolerance Myalgias/arthralgias. Resolved off med. Medication List Medication Directions Comments Action/Plan albuterol HFA (VENTOLIN HFA) 90 mcg/actuation inhaler Inhale 2 Puffs as instructed every 4 hours as needed for Wheezing/Shortness of Breath. amLODIPine (NORVASC) 10 mg tablet Take 1 tablet by mouth once daily. aspirin, enteric coated (ASPIR-81) 81 mg EC tablet Take 1 tablet by mouth once daily. atorvastatin (LIPITOR) 40 mg tablet TAKE ONE TABLET BY MOUTH ONCE DAILY AT BEDTIME FOR CHOLESTEROL carvedilol (COREG) 25 mg tablet Take 1 tablet by mouth twice daily with meals. COMPOUNDED PRESCRIPTION Rx compression socks. Name of the company- [employer] 20-30 mm compression Natural rubber gripper toe Model # 503 X-short ferrous sulfate 325 mg (65 mg iron) tablet TWICE DAILY WITH MEALS furosemide (LASIX) 40 mg tablet Take 2 tablets by mouth twice daily. Dosage changed 02/07/18 per [facility] Cardiology insulin glargine U-300 conc (TOUJEO MAX U-300 SOLOSTAR) 300 unit/mL (3 mL) inpn Inject 140 Units subcutaneously every morning. insulin lispro (HUMALOG KWIKPEN) 100 unit/mL inpn Inject 30- 50 Units subcutaneously w MEALS. [facility] - [facility] Insulin [place], Disposable, (PEN NEEDLE) 32 gauge x 5/32 ndle Use one pen needle with Toujeo and Humalog injections - 5 needles daily KLOR-CON M10 10 mEq tablet Take 1 tablet by mouth once daily. losartan (COZAAR) 100 mg tablet Take 1 tablet by mouth once daily. metOLAzone (ZAROXOLYN) 2.5 mg tablet 1 tablet as needed. Leg swelling. Per [facility] Cardiology omeprazole (PRILOSEC) 20 mg capsule TAKE ONE CAPSULE BY MOUTH ONCE DAILY GLYCEMIC CONTROL: ? Glucometer present at visit: No ? Hypoglycemia: denies Last 3 Encounter BP Readings: Date: BP: 02/17/2018 140/76 02/03/2018 130/90 01/17/2018 146/82 Wt: 157.9 kg (348 lb) BMI: 54.50 kg/(m2) LABS Lab Results Component Value Date HBA1C 7.7 02/03/2018 HBA1C 7.4 01/17/2018 HBA1C 6.8 11/01/2017 CMP: Glucose 141 02/03/2018 BUN 23 02/03/2018 Creatinine 1.57 02/03/2018 Sodium 139 02/03/2018 Potassium 4.0 02/03/2018 Chloride 104 02/03/2018 CO2 21 02/03/2018 Protein, Total 6.7 02/03/2018 Albumin 2.8 02/03/2018 Calcium 8.9 02/03/2018 Alkaline Phosphatase 94 02/03/2018 Bilirubin, Total 0.3 02/03/2018 AST 27 02/03/2018 ALT 24 02/03/2018 GFR 46 Estimated Creatinine Clearance: 78.2 mL/min (A) (based on SCr of 1.57 mg/dL (H)). Last Lipid Panel Lab Results Component Value Date CHOL 135 02/02/2017 Lab Results Component Value Date HDL 29 02/02/2017 Lab Results Component Value Date LDL 62 02/02/2017 Lab Results Component Value Date TG 219 02/02/2017 Albumin/Creat Ratio (mg/g) Date Value 02/02/2017 1,727 (H) PHARMACOTHERAPY ASSESSMENT/PLAN: 1. Uncontrolled type 2 diabetes mellitus with insulin therapy (HCC) - ICD9: 250.02, V58.67, ICD10: E11.65, Z79.4 (primary diagnosis) A1c goal <?8%, patient is?at goal. Due for recheck. SMBGs not at goal during holidays, but patient will go back to stricter diet. Patient compliant with and tolerating current regimen. Will continue current regimen at this time and make further adjustments with more BG data. Renal fxn improved back to baseline (TALITA in hospital) (could re-initiate metformin but patient reluctant d/t feeling better without it, likes taking fewer pills,?will continue to hold for now, can re-address at future visits)?and LFTs WNL?and appropriate for continued therapy. ? CONTINUE insulin glargine 140 units QAM and lispro 30-50?units TID meals ? Instructed patient to continue checking BGs, bring glucometer to next visit ? Labs completed today 2. Uncontrolled hypertension - ICD9: 401.9, ICD10: I10 BP goal <?130/80, pt is not?at goal on current therapy. Unable to obtain BP today.?Tolerating and compliant with therapy. BP therapies at max doses. Follows closely with [facility] Cardiology and Nephrology. Continue regimen at this time. Renal fxn and K+ WNL. ? CONTINUE losartan 100mg, amlodipine 10mg once daily, carvedilol 25mg BID, furosemide 80mg BID, metolazone 2.5mg daily ? Could add back spironolactone for additional BP-lowering (will stop K supplement if re-starting spironolactone, patient to discuss with Nephrology). ? Instructed patient to check BPs daily 3. Medication management - ICD9: V58.69, ICD10: Z79.899 - GoodRx coupon provided for potassium. Patient to discuss spironolactone with Nephrology. Patient is scheduled to see PCP 04/14. Patient to return to clinic for PharmD f/u on 05/08. Patient verbalized understanding of instructions. Saman Parkinson, VikasD, [facility] Referring Provider: LEIDA CISNEROS [[id number]] Allergies As of Date: 04/11/2018 Noted Allergy Reaction PRAVACHOL (PRAVASTATIN SODIUM) 08/11/2009 5 - Intolerance Comments: Myalgias/arthralgias. Resolved off med. Date Reviewed: 02/17/2018 Reviewed by: Dominga Stauffer LPN - Fully Assessed Reason for Visit: Allied Health Visit [5] Cmt: DM follow-up Primary Visit Diagnosis:Uncontrolled type 2 diabetes mellitus with insulin therapy (HCC) [E11.65, Z79.4] Other Visit Diagnosis:Medication management [Z79.899] Prescriptions as of 04/11/2018 Sig: INSULIN GLARGINE (U-300) CONC* Inject 140 Units subcutaneous* PEN NEEDLE, DIABETIC 32 GAUGE* Use one pen needle with Touje* FUROSEMIDE 40 MG TABLET Take 2 tablets by mouth twice* AMLODIPINE 10 MG TABLET Take 1 tablet by mouth once d* METOLAZONE 2.5 MG TABLET 1 tablet as needed. Leg swell* ATORVASTATIN 40 MG TABLET TAKE ONE TABLET BY MOUTH ONCE* INSULIN LISPRO (U-100) 100 UN* Inject 30-50 Units subcutaneo* LOSARTAN 100 MG TABLET Take 1 tablet by mouth once d* KLOR-CON M10 MEQ TABLET,EXTEN* Take 1 tablet by mouth once d* FERROUS SULFATE 325 MG (65 MG* TWICE DAILY WITH MEALS COMPOUNDED PRESCRIPTION Rx compression socks. Name of* OMEPRAZOLE 20 MG CAPSULE,ANAI* TAKE ONE CAPSULE BY MOUTH ONC* ALBUTEROL SULFATE HFA 90 MCG/* Inhale 2 Puffs as instructed * CARVEDILOL 25 MG TABLET Take 1 tablet by mouth twice * ASPIRIN 81 MG TABLET,DELAYED * Take 1 tablet by mouth once d* Problem List As Of Date 04/11/2018 Noted Resolved Coronary Artery Disease [I25.10] INVALID FOR* s/p Angioplasty with Stent INVALID FOR* Uncontrolled hypertension [I10] INVALID FOR* More... Hyperlipidemia with target LDL less than 70 [E7*INVALID FOR* Diabetes mellitus (HCC) [E11.9] INVALID FOR*10/15/2013 Proteinuria [R80.9] INVALID FOR* More... Uncontrolled type 2 diabetes mellitus with insu*INVALID FOR* Myocardial infarction (HCC) [I21.9] INVALID FOR* Edema [R60.9] INVALID FOR* MELODIE (obstructive sleep apnea) AHI 11 [G47.33] INVALID FOR* Obesity, Class III, BMI 40-49.9 (morbid obesity*INVALID FOR* Acute on chronic congestive heart failure (HCC)*INVALID FOR* Encounter Status:Closed by TESHA (PHARMACIST)SAMAN on 04/11/18 ALBUMIN/CREAT RATIO Collected: 04/11/2018 Status: F Source: [place] 7:51 AM [facility] REPOSITORY TYPE CODE TESTS RESULT OUT OF REFERENCE UNITS RANGE LAB UCRR 20-300 mg/dL Creatinine,Ur 23.5 ine,Ran LAB UALBR 0.0-23.0 mg/L High Albumin Urine 1088.0 Random LAB UALBCR 0-30 mg/g High Albumin/Creat 4630 Ratio Result Comment: 30 to 300 mg/g indicates an increased risk for diabetic nephropathy. Greater than 300 mg/g is consistent with clinical nephropathy. (Am J Kidney Disease 1995, 25:107) Performed By: #### UACR #### [facility] [address] [place], [place] [address] BASIC METABOLIC PANL Collected: 04/11/2018 Status: F Source: [place] 7:50 AM [facility] REPOSITORY TYPE CODE TESTS RESULT OUT OF REFERENCE UNITS RANGE LAB GLU 74-99 mg/dL High Glucose 272 Result Comment: The [place] Diabetes Association (ADA) provides guidance for cutoff values for fasting glucose and random glucose. The ADA defines fasting as no caloric intake for at least 8 hours. Fas ting plasma glucose results between 100 to 125 mg/dL indicate increased risk for diabetes (prediabetes). Fasting plasma glucose results greater than or equal to 126 mg/dL meet the criteria for diagnosis of diabetes. In the absence of unequivocal hyperglycemia, results should be confirmed by repeat testing. In a patient with classic symptoms of hyperglycemia or hyperglycemic crisis, random plasma glucose results greater than or equal to 200 mg/dL meet the criteria for diagnosis of diabetes. Reference: Standards of Medical Care in Diabetes 2016, [place] Diabetes Association. Diabetes Care. 2016.39(Suppl 1). LAB BUN 9-24 mg/dL BUN High 46 LAB CRET 0.73-1.22 mg/dL Creatinine High 1.81 LAB NA 136-144 mmol/L Low Sodium 133 LAB K 3.7-5.1 mmol/L Low Potassium 3.6 LAB CL 97-105 mmol/L Low Chloride 93 LAB CO2 22-30 mmol/L CO2 23 LAB AGAP 9-18 mmol/L Anion Gap 17 LAB CA 8.5-10.2 mg/dL Calcium, Total 9.5 LAB GFRAA eGFR- Amer. 48 LAB GFRNAA . eGFR-All Other Races 39 Result Comment: eGFR (Estimated GFR) Units of measure: mL/min/1.73 meters squared eGFR is derived from the reexpressed MDRD Study equation using the following parameters: serum creatinine, age, gender and race. The creatinine assay has been calibrated to be traceable to IDMS. An eGFR <60 mL/min/1.73m2 for >3 months is consistent with chronic kidney disease. Refer to KDOQI guidelines for clinical interpretation. In patients with unstable renal function, e.g. those with acute kidney injury, the eGFR may not accurately reflect actual GFR. Performed By: #### BMP, LIPNF, HBA1C #### [facility] [address] [place], [place] [address] LIPID PANEL, NONFAST Collected: 04/11/2018 Status: F Source: [place] 7:50 AM [facility] REPOSITORY TYPE CODE TESTS RESULT OUT OF REFERENCE UNITS RANGE LAB CHOLNF <200 mg/dL Total High Cholesterol NF 202 Result Comment: <200 mg/dL, Desirable 200-239 mg/dL, Borderline high >239 mg/dL, High LAB TRIGNF <150 mg/dL Triglycerides, NF High 364 Result Comment: <150 mg/dL, Normal 150-199 mg/dL, Borderline high 200-499 mg/dL, High >499 mg/dL, Very high LAB HDLNF >39 mg/dL HDL Cholesterol, NF Low 30 Result Comment: 40-59 mg/dL, Acceptable >59 mg/dL, High: Negative risk factor for coronary heart disease <40 mg/dL, Low: Positive risk factor for coronary heart disease LAB LDLNF <100 mg/dL LDL Cholesterol, NF 99 Result Comment: <100 mg/dL, Optimal 100-129 mg/dL, Near optimal/above optimal 130-159 mg/dL, Borderline high 160-189 mg/dL, High >189 mg/dL, Very high Secondary prevention optimal LDL Cholesterol levels are recommended to be < 70 mg/dL LAB NOHDLN <130 mg/dL High Non HDL Chol, 172 NF Result Comment: <130 mg/dL, Optimal 130-159 mg/dL, Near optimal/above optimal 160-189 mg/dL, Borderline high 190-219 mg/dL, High >219 mg/dL, Very high Secondary prevention optimal non HDL Cholesterol levels are recommended to be < 100 mg/dL LAB VLDLNF <30 mg/dL VLDL Cholesterol, High NF 73 LAB TCHDLN <5.10 mg/dL T Chol/HDL Ratio High NF 6.73 LAB LDLHDN <2.54 mg/dL LDL/HDL Ratio, NF High 3.30 Result Comment: Reference: 1. National Cholesterol Education Program ATP III Guideline At-A-Glance Quick Desk Reference: National Heart, Lung, and Blood [place]. National Institutes of Health. 2001: NIH Publication No. 01-3305. 2. An International Atherosclerosis Society position paper: global recommendations for the management of dyslipidemia: executive summary, Atherosclerosis. 2014: 232(2):410-413. Performed By: #### BMP, LIPNF, HBA1C #### [facility] [address] [place], [place] [address] HEMOGLOBIN A1C Collected: 04/11/2018 Status: F Source: [place] 7:50 AM [facility] REPOSITORY TYPE CODE TESTS RESULT OUT OF REFERENCE UNITS RANGE LAB HGBA1C 4.3-5.6 % High Hemoglobin A1c 9.0 Result Comment: [place] Diabetes Association guidelines indicate that patients with HgbA1c in the range 5.7-6.4% are at increased risk for development of diabetes, and intervention by lifestyle modification may be beneficial. HgbA1c greater or equal to 6.5% is considered diagnostic of diabetes. LAB HBA0 mg/dL Est. Average Glucose 212 Result Comment: eAG: (Estimated average glucose) is a calculated value from HgbA1c and is insurance service representative of the average blood glucose level in the last 2-3 month period. 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 There is also significant chronic change in the interstitium. The underlying etiology of these chronic changes, given the patient's clinical history along with absence of other diagnostic findings is likely diabetic- related nephropathy, although other etiologies cannot be completely excluded. Clinical correlation is recommended. GROSS DESCRIPTION The specimen is sent entirely to [facility] for diagnosis. The case is received in one container labeled with the patient's name and medical record number. In poly-transport medium are four dumont core biopsies of tissue measuring in length from 1.4 cm down to 0.5 cm, each approximately 0.1 cm in width. The renal tissue is dissected and divided for immunofluorescence, electron microscopy and light microscopy. HEADER OPERATION: Ultrasound-guided left kidney biopsy PRE-OP DIAGNOSIS: Proteinuria TISSUE SUBMITTED: Left kidney biopsy MICROSCOPIC DESCRIPTION A needle biopsy is available to review. There are approximately 12 glomeruli present, 8 of which are globally sclerotic. The non-sclerotic glomeruli show no evidence of crescent formation, segmental scars, necrosis, thrombosis or inflammation. However, the non-sclerotic glomeruli do show a mild increase in mesangial matrix material. PAS, trichrome and silver stains show no evidence of glomerular base membrane double contours, spikes or fuchsinophilic immune-type deposits. The interstitium shows interstitial fibrosis and tubular atrophy involving approximately 50% of the cortical area sampled. There is a mild lymphocytic inflammatory infiltrate in the interstitium in the areas of scarring. Tubules show no casts or evidence of acute tubular necrosis. Vessels show mild arterio- and arteriolosclerosis. IMMUNOFLUORESCENCE: The tissue submitted for immunofluorescence studies contains 3 glomeruli, 1 of which is globally sclerotic. IgG, IgA, IgM, C3, C1q, albumin, fibrinogen, and kappa and lambda light chains all show nonspecific staining. ELECTRON MICROSCOPY: The tissue submitted for electron microscopy studies contain 3 glomeruli, none of which are globally sclerotic. Two glomeruli are imaged. Ultrastructural examination reveals that the glomerular capillary loops are partially compressed by an increase in mesangial matrix material and cellularity. The glomerular basement membranes are of approximately normal caliber. The visceral epithelial foot processes show effacement over approximately 40% of the capillary loop surface area. There are no electron- dense immune-type deposits appreciated. Tubules appear unremarkable. MICROSCOPIC DIAGNOSIS Kidney, needle biopsy: Diffuse global glomerulosclerosis (9 of 18 glomeruli globally sclerotic), see Microscopic Description and Comment. Signed Raul Hammer DO 04/06/18 <signature on file> Performed By: #### PKI #### [facility] [address] [place], [address] KIDNEY BIOPSY Observed: 03/29/2018 Status: F Source: [place] 8:57 AM [facility] REPOSITORY [facility] Imaging Services [address] [place] [address] Kidney Biopsy MR#: [id number] Acct: [id number] Name: JAKE BLANKENSHIP Rep #: [id number] : 1965 M 52 From: Kenia Morton MD PCP: Leida Cisneros MD Status: REG CLI Study: Kidney Biopsy Date of Exam: 03/29/18 Exam# [id number] Ordering Dr: Catherine Raymundo DO PROCEDURE: Ultrasound Guided CLINICAL HISTORY: Male, 52 years old. CONSENT: Time-Out Called: Yes Consent form signed: YES PT-PTT Levels Checked: Yes SEDATION: TECHNIQUE: FINDINGS: Under ultrasound guidance with the patient in prone position and following proper antisepsis preparation, 18-gauge allison-cut Bard needle was used to obtain 3 biopsies from the lower aspect of the left kidney. The specimens were put in in sterile lab container and sent to the Lab. The patient tolerated the procedure well. Electronically Signed: Kenia Morton, at 16:36 EST Tel , Service support , US/Kidney Biopsy CC: Leida Cisneros MD; Catherine Raymundo DO Time Buyer: Signed PROTHROMBIN TIME W/INR Collected: 03/29/2018 Status: F Source: [place] 8:33 AM [facility] REPOSITORY TYPE CODE TESTS RESULT OUT OF RANGE REFERENCE UNITS LAB L300.4150 11.7-14.9 SECONDS Normal PROTIME 13.6 LAB L300.4200 Normal INR 1.0 Performed By: #### L300.3900, L300.4310 #### [facility] [address] [place], [place], [address] PARTIAL THROMBOPLAST Collected: 03/29/2018 Status: F Source: [place] TIME 8:33 AM [facility] REPOSITORY TYPE CODE TESTS RESULT OUT OF RANGE REFERENCE UNITS LAB L300.4310 24.1-36.2 Seconds Normal PTT 28.1 Performed By: #### L300.3900, L300.4310 #### [facility] [address] [place], [address] RENAL PROFILE Collected: 03/29/2018 Status: F Source: [place] 8:33 AM [facility] REPOSITORY TYPE CODE TESTS RESULT OUT OF RANGE REFERENCE UNITS LAB L501.0100 74-106 mg/dL High GLU 206 Result Comment: Glucose result greater than or equal to 200 mg/dL suggests DIABETES MELLITUS per A.D.A. criteria. Please note revised GLUCOSE reference range effective 2017. LAB L501.1000 7-18 mg/dL High BUN 36 LAB L501.1100 0.70-1.30 mg/dL High CREAT,SERUM 1.65 Result Comment: The validity of the calculated GFR AND GFRAA in patients over 70 years has not been determined. Clinical correlation is essential. LAB L501.1110 >60 mL/min Low EST GFR 46 Result Comment: Non- GFR Calc LAB L501.1115 >60 mL/min Low EST GFR - AA 56 Result Comment: GFR Calc LAB L501.1300 10-20 RATIO High BUN/CRE 21.8 LAB L501.1800 3.2-5.0 g/dL Low ALB 2.6 LAB L501.2200 8.5-10.1 mg/dL CA Normal 8.8 LAB L501.2300 2.5-4.9 mg/dL Normal PHOS 3.6 LAB L501.5300 136-145 mmol/L NA Normal 140 LAB L501.5600 3.5-5.1 mmol/L K Normal 3.6 LAB L501.5900 98-107 mmol/L CL Normal 103 LAB L501.6100 21.0-32.0 mmol/L Normal CO2 26.0 Performed By: #### L500.3600 #### [facility] [address] [place], [address] CNPTOUTREACH Observed: 03/27/2018 Status: COMPLETED Source: [place] 12:00 AM [facility] REPOSITORY Patient Outreach (INTM[facility]) JAKE BLANKENSHIP ([id number]) 1965 M Date Time Provider Department 03/27/18 LEIDA CISNEROS [facility] During your visit today, we recorded the following information about you: Allergies As of Date: 03/27/2018 Noted Allergy Reaction PRAVACHOL (PRAVASTATIN SODIUM) 08/11/2009 5 - Intolerance Comments: Myalgias/arthralgias. Resolved off med. Date Reviewed: 02/17/2018 Reviewed by: Dominga Stauffer LPN - Fully Assessed Visit Diagnosis:Medication management [Z79.899] Order(s):ALBUMIN/CREAT RATIO RND UR [SQUACR] Order #: [id number] FUTURE Prescriptions as of 03/27/2018 Sig: INSULIN GLARGINE (U-300) CONC* Inject 140 Units subcutaneous* PEN NEEDLE, DIABETIC 32 GAUGE* Use one pen needle with Touje* FUROSEMIDE 40 MG TABLET Take 2 tablets by mouth twice* AMLODIPINE 10 MG TABLET Take 1 tablet by mouth once d* METOLAZONE 2.5 MG TABLET 1 tablet as needed. Leg swell* ATORVASTATIN 40 MG TABLET TAKE ONE TABLET BY MOUTH ONCE* INSULIN LISPRO (U-100) 100 UN* Inject 30-50 Units subcutaneo* LOSARTAN 100 MG TABLET Take 1 tablet by mouth once d* KLOR-CON M10 MEQ TABLET,EXTEN* Take 1 tablet by mouth once d* FERROUS SULFATE 325 MG (65 MG* TWICE DAILY WITH MEALS COMPOUNDED PRESCRIPTION Rx compression socks. Name of* OMEPRAZOLE 20 MG CAPSULE,ANAI* TAKE ONE CAPSULE BY MOUTH ONC* ALBUTEROL SULFATE HFA 90 MCG/* Inhale 2 Puffs as instructed * CARVEDILOL 25 MG TABLET Take 1 tablet by mouth twice * ASPIRIN 81 MG TABLET,DELAYED * Take 1 tablet by mouth once d* Problem List As Of Date 03/27/2018 Noted Resolved Coronary Artery Disease [I25.10] INVALID FOR* s/p Angioplasty with Stent INVALID FOR* Uncontrolled hypertension [I10] INVALID FOR* More... Hyperlipidemia with target LDL less than 70 [E7*INVALID FOR* Diabetes mellitus (HCC) [E11.9] INVALID FOR*10/15/2013 Proteinuria [R80.9] INVALID FOR* More... Uncontrolled type 2 diabetes mellitus with insu*INVALID FOR* Myocardial infarction (HCC) [I21.9] INVALID FOR* Edema [R60.9] INVALID FOR* MELODIE (obstructive sleep apnea) AHI 11 [G47.33] INVALID FOR* Obesity, Class III, BMI 40-49.9 (morbid obesity*INVALID FOR* Acute on chronic congestive heart failure (HCC)*INVALID FOR* Encounter Status:Closed by HobbyGOMEZ on 04/11/18 RENAL PROFILE Collected: 03/13/2018 Status: F Source: [place] 9:44 AM [facility] REPOSITORY TYPE CODE TESTS RESULT OUT OF RANGE REFERENCE UNITS LAB L501.0100 74-106 mg/dL High GLU 211 Result Comment: Glucose result greater than or equal to 200 mg/dL suggests DIABETES MELLITUS per A.D.A. criteria. Please note revised GLUCOSE reference range effective 2017. LAB L501.1000 7-18 mg/dL High BUN 49 LAB L501.1100 0.70-1.30 mg/dL High CREAT,SERUM 1.89 Result Comment: The validity of the calculated GFR AND GFRAA in patients over 70 years has not been determined. Clinical correlation is essential. LAB L501.1110 >60 mL/min Low EST GFR 40 Result Comment: Non- GFR Calc LAB L501.1115 >60 mL/min Low EST GFR - AA 48 Result Comment: GFR Calc LAB L501.1300 10-20 RATIO High BUN/CRE 25.9 LAB L501.1800 3.2-5.0 g/dL Low ALB 2.5 LAB L501.2200 8.5-10.1 mg/dL CA Normal 8.9 LAB L501.2300 2.5-4.9 mg/dL Normal PHOS 3.9 LAB L501.5300 136-145 mmol/L Low NA 134 LAB L501.5600 3.5-5.1 mmol/L Low K 3.2 LAB L501.5900 98-107 mmol/L Low CL 96 LAB L501.6100 21.0-32.0 mmol/L Normal CO2 30.0 Performed By: #### L500.3600 #### [facility] [address] [place], [address] PROGRESS Observed: 03/13/2018 Status: COMPLETED Source: [place] 9:00 AM [facility] REPOSITORY HNO ID: [id number] Author: Saman Parkinson (Pharmacist) Service: (none) Author Type: Pharmacist Type: Progress Notes Filed: 03/13/2018 4:44 PM Note Text: Patient consents to pharmacy collaborative practice agreement. REASON FOR CONSULT: DM? GOALS: A1c <?8% CONSULTING PROVIDER: Dr. Cisneros?? Date of Consult: 02/2017 Jake Blankenship is a 52 year old male was last seen in [facility] by PCP, Dr. LEIDA CISNEROS MD on 02/17/18 Patient is presenting today for f/u pharmacotherapy management appointment for DM. At last PharmD visit on 02/13 no med changes were made INTERIM HISTORY: Reports being thirsty all the time Nephrology [facility] - has appointment tomorrow, has monthly blood work ordered Cardiology [facility] - ? Metolazone was increased to 2.5mg daily last visit Current DM Medications: Insulin glargine MAX 300 units/mL 140 units QAM Insulin lispro 50 units TID meals (if pre-meal BG is 140 or more he takes 50, otherwise takes 30-40) will take some at night if having a snack) Current HTN Medications: Amlodipine 10mg once daily Carvedilol 25mg BID Losartan 100mg once daily Furosemide 80mg BID Metolazone 2.5mg daily Preventative Medications: ? On GEENA/ARB: Yes ? On Statin: Yes ? On ASA: Yes ROS: ? Patient denies CP, SOB, PEREZ, blurred vision, dizziness or lightheadedness ? Patient denies symptoms of hypoglycemia (sweating, anxiety, palpitations, hunger, and tremor) ? Patient denies symptoms of hyperglycemia (polyuria, polydipsia, polyphagia) ? Patient denies potential medication adverse effects DIET/EXERCISE/SOCIAL Hx: ? Eating less in general MEDICATIONS: ? Pill bottles are present. ? Adherence: denies missed doses. ? [facility]acy: [facility] ? Rx coverage: amBX and Medicare ? Affordability: no issues, PAP for Humalog, voucher for Toujeo ? Diabetes supplies: Relion ? Organization System: pillbox ACTIVE PROBLEM LIST Coronary Artery Disease S/P Angioplasty With Stent Uncontrolled Hypertension Hyperlipidemia With Target Ldl Less Than 70 Proteinuria Uncontrolled Type 2 Diabetes Mellitus With Insulin Therapy ([facility]) Myocardial Infarction ([facility]) Edema MELODIE (obstructive sleep apnea) AHI 11 Obesity, Class Iii, Bmi 40-49.9 (Morbid Obesity) ([facility]) Acute On Chronic Congestive Heart Failure ([facility]) PAST MEDICAL HISTORY Diagnosis Date - CHF (congestive heart failure) ([facility]) 10/18/2017 - Diabetes ([facility]) - Hypertension - WI (myocardial infarction) ([facility]) 03-12-09 stent placement - Myocardial infarction ([facility]) 03/16/2014 ALLERGIES Allergen Reactions - Pravachol [Pravasta* Intolerance Myalgias/arthralgias. Resolved off med. Medication List Medication Directions Comments Action/Plan albuterol HFA (VENTOLIN HFA) 90 mcg/actuation inhaler Inhale 2 Puffs as instructed every 4 hours as needed for Wheezing/Shortness of Breath. amLODIPine (NORVASC) 10 mg tablet Take 1 tablet by mouth once daily. daily aspirin, enteric coated (ASPIR-81) 81 mg EC tablet Take 1 tablet by mouth once daily. daily atorvastatin (LIPITOR) 40 mg tablet TAKE ONE TABLET BY MOUTH ONCE DAILY AT BEDTIME FOR CHOLESTEROL Daily benzonatate (TESSALON PERLES) 100 mg capsule Take 1 capsule by mouth three times daily as needed. carvedilol (COREG) 25 mg tablet Take 1 tablet by mouth twice daily with meals. BID COMPOUNDED PRESCRIPTION Rx compression socks. Name of the company- [employer] 20-30 mm compression Natural rubber gripper toe Model # 503 X-short ferrous sulfate 325 mg (65 mg iron) tablet TWICE DAILY WITH MEALS BID furosemide (LASIX) 40 mg tablet Take 2 tablets by mouth twice daily. Dosage changed 02/07/18 per [facility] Cardiology Taking 2 BID insulin glargine U-300 conc (TOUJEO MAX U-300 SOLOSTAR) 300 unit/mL (3 mL) inpn Inject 140 Units subcutaneously every morning. Taking insulin lispro (HUMALOG KWIKPEN) 100 unit/mL inpn Inject 30- 50 Units subcutaneously w MEALS. PATIENT ASSISTANCE - EDITH CARES Taking Insulin [place], Disposable, (PEN NEEDLE) 32 gauge x /32 ndle Use one pen needle with Toujeo and Humalog injections - 5 needles daily KLOR-CON M10 10 mEq tablet Take 1 tablet by mouth once daily. Daily losartan (COZAAR) 100 mg tablet Take 1 tablet by mouth once daily. Daily metOLAzone (ZAROXOLYN) 2.5 mg tablet 1 tablet as needed. Leg swelling. Per [facility] Cardiology Changed to daily omeprazole (PRILOSEC) 20 mg capsule TAKE ONE CAPSULE BY MOUTH ONCE DAILY daily Rx meds not listed in EPIC: none OTCs: none Herbals: none GLYCEMIC CONTROL: ? Glucometer present at visit: No ? SMBG?s: ? Reports FBGs 140-210 ? PPBGs staying less than 200 Last 3 Encounter BP Readings: Date: BP: 02/17/2018 140/76 02/03/2018 130/90 01/17/2018 146/82 Wt: 160.6 kg (354 lb) BMI: 55.44 kg/(m2) LABS Lab Results Component Value Date HBA1C 7.7 02/03/2018 HBA1C 7.4 01/17/2018 HBA1C 6.8 11/01/2017 CMP: Glucose 141 02/03/2018 BUN 23 02/03/2018 Creatinine 1.57 02/03/2018 Sodium 139 02/03/2018 Potassium 4.0 02/03/2018 Chloride 104 02/03/2018 CO2 21 02/03/2018 Protein, Total 6.7 02/03/2018 Albumin 2.8 02/03/2018 Calcium 8.9 02/03/2018 Alkaline Phosphatase 94 02/03/2018 Bilirubin, Total 0.3 02/03/2018 AST 27 02/03/2018 ALT 24 02/03/2018 Estimated Creatinine Clearance: 79 mL/min (A) (based on SCr of 1.57 mg/dL (H)). Last Lipid Panel Lab Results Component Value Date CHOL 135 02/02/2017 Lab Results Component Value Date HDL 29 02/02/2017 Lab Results Component Value Date LDL 62 02/02/2017 Lab Results Component Value Date TG 219 02/02/2017 Albumin/Creat Ratio (mg/g) Date Value 02/02/2017 1,727 (H) PHARMACOTHERAPY ASSESSMENT/PLAN: 1. Uncontrolled type 2 diabetes mellitus with insulin therapy (HCC) - ICD9: 250.02, V58.67, ICD10: E11.65, Z79.4 (primary diagnosis) A1c goal <?8%, patient is?at goal. SMBG reported to be mostly at goal. Patient compliant with and tolerating current regimen. Will continue current regimen at this time and make further adjustments with more BG data. Renal fxn improved back to baseline (TALITA in hospital) (could re-initiate metformin but patient reluctant d/t feeling better without it, likes taking fewer pills,?will continue to hold for now, can re-address at future visits)?and LFTs WNL?and appropriate for continued therapy. ? CONTINUE insulin glargine 140 units QAM (change to Toujeo MAX, can use same coupon as regular Toujeo), lispro 30-50?units TID meals ? Instructed patient to continue checking BGs, bring glucometer to next visit 2. Uncontrolled hypertension - ICD9: 401.9, ICD10: I10 BP goal <?130/80, pt is not?at goal on current therapy. Unable to obtain BP today. Tolerating and compliant with therapy. BP therapies at max doses. Could add back spironolactone for additional BP-lowering. Follows closely with [facility] Cardiology and Nephrology. Continue regimen at this time. Renal fxn and K+ WNL. ? CONTINUE losartan 100mg, amlodipine 10mg once daily, carvedilol 25mg BID, furosemide 80mg BID, metolazone 2.5mg daily ? Instructed patient to check BPs daily Health Maintenance issues addressed: BP CONTROLLED (<130/80) due on 1981 DILATED RETINAL EXAM due on 04/26/2017 LDL CHOLESTEROL due on 02/02/2018 Patient is scheduled to see PCP 04/10/18. Patient to return to clinic for PharmD f/u on 05/08. Patient verbalized understanding of instructions. Saman Parkinson PharmD, BCPS CNOV Observed: 03/13/2018 Status: COMPLETED Source: [place] 9:00 AM [facility] REPOSITORY Office Visit (PHMEWO) JAKE BLANKENSHIP ([id number]) 1965 M Date Time Provider Department 03/13/18 9:00 AM TESHA (PHARMACIST), SAMAN SKELTON During your visit today, we recorded the following information about you: Weight 157.9 kg YESY PAGAN 03/13/2018 4:44 PM Signed Patient consents to pharmacy collaborative practice agreement. REASON FOR CONSULT: DM? GOALS: A1c <?8% CONSULTING PROVIDER: Dr. Cisneros?? Date of Consult: 02/2017 Jake Blankenship is a 52 year old male was last seen in [facility] by PCP, Dr. LEIDA CISNEROS MD on 02/17/18 Patient is presenting today for f/u pharmacotherapy management appointment for DM. At last PharmD visit on 02/13 no med changes were made INTERIM HISTORY: Reports being thirsty all the time Nephrology [facility] - has appointment tomorrow, has monthly blood work ordered Cardiology [facility] - ? Metolazone was increased to 2.5mg daily last visit Current DM Medications: Insulin glargine MAX 300 units/mL 140 units QAM Insulin lispro 50 units TID meals (if pre-meal BG is 140 or more he takes 50, otherwise takes 30-40) will take some at night if having a snack) Current HTN Medications: Amlodipine 10mg once daily Carvedilol 25mg BID Losartan 100mg once daily Furosemide 80mg BID Metolazone 2.5mg daily Preventative Medications: ? On GEENA/ARB: Yes ? On Statin: Yes ? On ASA: Yes ROS: ? Patient denies CP, SOB, PEREZ, blurred vision, dizziness or lightheadedness ? Patient denies symptoms of hypoglycemia (sweating, anxiety, palpitations, hunger, and tremor) ? Patient denies symptoms of hyperglycemia (polyuria, polydipsia, polyphagia) ? Patient denies potential medication adverse effects DIET/EXERCISE/SOCIAL Hx: ? Eating less in general MEDICATIONS: ? Pill bottles are present. ? Adherence: denies missed doses. ? Pharmacy: [facility] ? Rx coverage: amBX and Medicare ? Affordability: no issues, PAP for Humalog, voucher for Toujeo ? Diabetes supplies: [employer] ? Organization System: [employer] ACTIVE PROBLEM LIST Coronary Artery Disease S/P Angioplasty With Stent Uncontrolled Hypertension Hyperlipidemia With Target Ldl Less Than 70 Proteinuria Uncontrolled Type 2 Diabetes Mellitus With Insulin Therapy ([facility]) Myocardial Infarction ([facility]) Edema MELODIE (obstructive sleep apnea) AHI 11 Obesity, Class Iii, Bmi 40-49.9 (Morbid Obesity) ([facility]) Acute On Chronic Congestive Heart Failure ([facility]) PAST MEDICAL HISTORY Diagnosis Date - CHF (congestive heart failure) ([facility]) 10/18/2017 - Diabetes ([facility]) - Hypertension - WI (myocardial infarction) ([facility]) 03-12-09 stent placement - Myocardial infarction ([facility]) 03/16/2014 ALLERGIES Allergen Reactions - Pravachol [Pravasta* Intolerance Myalgias/arthralgias. Resolved off med. Medication List Medication Directions Comments Action/Plan albuterol HFA (VENTOLIN HFA) 90 mcg/actuation inhaler Inhale 2 Puffs as instructed every 4 hours as needed for Wheezing/Shortness of Breath. amLODIPine (NORVASC) 10 mg tablet Take 1 tablet by mouth once daily. daily aspirin, enteric coated (ASPIR-81) 81 mg EC tablet Take 1 tablet by mouth once daily. daily atorvastatin (LIPITOR) 40 mg tablet TAKE ONE TABLET BY MOUTH ONCE DAILY AT BEDTIME FOR CHOLESTEROL Daily benzonatate (TESSALON PERLES) 100 mg capsule Take 1 capsule by mouth three times daily as needed. carvedilol (COREG) 25 mg tablet Take 1 tablet by mouth twice daily with meals. BID COMPOUNDED PRESCRIPTION Rx compression socks. Name of the company- [employer] 20-30 mm compression Natural rubber gripper toe Model # 503 X-short ferrous sulfate 325 mg (65 mg iron) tablet TWICE DAILY WITH MEALS BID furosemide (LASIX) 40 mg tablet Take 2 tablets by mouth twice daily. Dosage changed 02/07/18 per [facility] Cardiology Taking 2 BID insulin glargine U-300 conc (TOUJEO MAX U-300 SOLOSTAR) 300 unit/mL (3 mL) inpn Inject 140 Units subcutaneously every morning. Taking insulin lispro (HUMALOG KWIKPEN) 100 unit/mL inpn Inject 30- 50 Units subcutaneously w MEALS. PATIENT ASSISTANCE - EDITH CARES Taking Insulin [place], Disposable, (PEN NEEDLE) 32 gauge x 5/32 ndle Use one pen needle with Toujeo and Humalog injections - 5 needles daily KLOR-CON M10 10 mEq tablet Take 1 tablet by mouth once daily. Daily losartan (COZAAR) 100 mg tablet Take 1 tablet by mouth once daily. Daily metOLAzone (ZAROXOLYN) 2.5 mg tablet 1 tablet as needed. Leg swelling. Per [facility] Cardiology Changed to daily omeprazole (PRILOSEC) 20 mg capsule TAKE ONE CAPSULE BY MOUTH ONCE DAILY daily Rx meds not listed in EPIC: none OTCs: none Herbals: none GLYCEMIC CONTROL: ? Glucometer present at visit: No ? SMBG?s: ? Reports FBGs 140-210 ? PPBGs staying less than 200 Last 3 Encounter BP Readings: Date: BP: 02/17/2018 140/76 02/03/2018 130/90 01/17/2018 146/82 Wt: 160.6 kg (354 lb) BMI: 55.44 kg/(m2) LABS Lab Results Component Value Date HBA1C 7.7 02/03/2018 HBA1C 7.4 01/17/2018 HBA1C 6.8 11/01/2017 CMP: Glucose 141 02/03/2018 BUN 23 02/03/2018 Creatinine 1.57 02/03/2018 Sodium 139 02/03/2018 Potassium 4.0 02/03/2018 Chloride 104 02/03/2018 CO2 21 02/03/2018 Protein, Total 6.7 02/03/2018 Albumin 2.8 02/03/2018 Calcium 8.9 02/03/2018 Alkaline Phosphatase 94 02/03/2018 Bilirubin, Total 0.3 02/03/2018 AST 27 02/03/2018 ALT 24 02/03/2018 Estimated Creatinine Clearance: 79 mL/min (A) (based on SCr of 1.57 mg/dL (H)). Last Lipid Panel Lab Results Component Value Date CHOL 135 02/02/2017 Lab Results Component Value Date HDL 29 02/02/2017 Lab Results Component Value Date LDL 62 02/02/2017 Lab Results Component Value Date TG 219 02/02/2017 Albumin/Creat Ratio (mg/g) Date Value 02/02/2017 1,727 (H) PHARMACOTHERAPY ASSESSMENT/PLAN: 1. Uncontrolled type 2 diabetes mellitus with insulin therapy (HCC) - ICD9: 250.02, V58.67, ICD10: E11.65, Z79.4 (primary diagnosis) A1c goal <?8%, patient is?at goal. SMBG reported to be mostly at goal. Patient compliant with and tolerating current regimen. Will continue current regimen at this time and make further adjustments with more BG data. Renal fxn improved back to baseline (TALITA in hospital) (could re-initiate metformin but patient reluctant d/t feeling better without it, likes taking fewer pills,?will continue to hold for now, can re-address at future visits)?and LFTs WNL?and appropriate for continued therapy. ? CONTINUE insulin glargine 140 units QAM (change to Toujeo MAX, can use same coupon as regular Toujeo), lispro 30-50?units TID meals ? Instructed patient to continue checking BGs, bring glucometer to next visit 2. Uncontrolled hypertension - ICD9: 401.9, ICD10: I10 BP goal <?130/80, pt is not?at goal on current therapy. Unable to obtain BP today. Tolerating and compliant with therapy. BP therapies at max doses. Could add back spironolactone for additional BP-lowering. Follows closely with [facility] Cardiology and Nephrology. Continue regimen at this time. Renal fxn and K+ WNL. ? CONTINUE losartan 100mg, amlodipine 10mg once daily, carvedilol 25mg BID, furosemide 80mg BID, metolazone 2.5mg daily ? Instructed patient to check BPs daily Health Maintenance issues addressed: BP CONTROLLED (<130/80) due on 1981 DILATED RETINAL EXAM due on 04/26/2017 LDL CHOLESTEROL due on 02/02/2018 Patient is scheduled to see PCP 04/10/18. Patient to return to clinic for PharmD f/u on 05/08. Patient verbalized understanding of instructions. Saman Parkinson, PharmD, BCPS Referring Provider: LEIDA CISNEROS [[id number]] Allergies As of Date: 03/13/2018 Noted Allergy Reaction PRAVACHOL (PRAVASTATIN SODIUM) 08/11/2009 5 - Intolerance Comments: Myalgias/arthralgias. Resolved off med. Date Reviewed: 02/17/2018 Reviewed by: Dominga Stauffer LPN - Fully Assessed Reason for Visit: Allied Health Visit [5] Cmt: DM follow-up Primary Visit Diagnosis:Uncontrolled type 2 diabetes mellitus with insulin therapy (HCC) [E11.65, Z79.4] Other Visit Diagnosis:Uncontrolled hypertension [I10] Order(s):insulin glargine U-300 conc (TOUJEO MAX U-300 SOLOSTAR) 300 unit/mL (3 mL) inpnInject 140 Units subcutaneously every morning.Disp: 6 PenRfl: 5 HGB A1C [[id number]] Order #: [id number] FUTURE BASIC METABOLIC PNL [SQBMP] Order #: [id number] FUTURE LIPID PANEL, NONFASTING [SQLIPNF] Order #: [id number] FUTURE Prescriptions as of 03/13/2018 Sig: INSULIN GLARGINE (U-300) CONC* Inject 140 Units subcutaneous* PEN NEEDLE, DIABETIC 32 GAUGE* Use one pen needle with Touje* FUROSEMIDE 40 MG TABLET Take 2 tablets by mouth twice* AMLODIPINE 10 MG TABLET Take 1 tablet by mouth once d* METOLAZONE 2.5 MG TABLET 1 tablet as needed. Leg swell* ATORVASTATIN 40 MG TABLET TAKE ONE TABLET BY MOUTH ONCE* INSULIN LISPRO (U-100) 100 UN* Inject 30-50 Units subcutaneo* LOSARTAN 100 MG TABLET Take 1 tablet by mouth once d* KLOR-CON M10 MEQ TABLET,EXTEN* Take 1 tablet by mouth once d* FERROUS SULFATE 325 MG (65 MG* TWICE DAILY WITH MEALS COMPOUNDED PRESCRIPTION Rx compression socks. Name of* OMEPRAZOLE 20 MG CAPSULE,ANAI* TAKE ONE CAPSULE BY MOUTH ONC* ALBUTEROL SULFATE HFA 90 MCG/* Inhale 2 Puffs as instructed * CARVEDILOL 25 MG TABLET Take 1 tablet by mouth twice * ASPIRIN 81 MG TABLET,DELAYED * Take 1 tablet by mouth once d* Problem List As Of Date 03/13/2018 Noted Resolved Coronary Artery Disease [I25.10] INVALID FOR* s/p Angioplasty with Stent INVALID FOR* Uncontrolled hypertension [I10] INVALID FOR* More... Hyperlipidemia with target LDL less than 70 [E7*INVALID FOR* Diabetes mellitus (HCC) [E11.9] INVALID FOR*10/15/2013 Proteinuria [R80.9] INVALID FOR* More... Uncontrolled type 2 diabetes mellitus with insu*INVALID FOR* Myocardial infarction (HCC) [I21.9] INVALID FOR* Edema [R60.9] INVALID FOR* MELODIE (obstructive sleep apnea) AHI 11 [G47.33] INVALID FOR* Obesity, Class III, BMI 40-49.9 (morbid obesity*INVALID FOR* Acute on chronic congestive heart failure (HCC)*INVALID FOR* Prescriptions ordered this encounter Disp Refills Start End INSULIN GLARGINE (U-300) CONC. 300 U* 6 Pen 5 03/13/2018 Cmt: Cancel any other Toujeo prescriptions please Route: SUBCUTANEOUS Sig: Inject 140 Units subcutaneously every morning. Medications Discontinued During This Encounter benzonatate (TESSALON PERLES) 100 mg* 30 c* 0 02/03/2018 03/13/2018 Route: ORAL Sig: Take 1 capsule by mouth three times daily as needed. Disc: Course of therapy completed insulin glargine U-300 conc (TOUJEO * 6 Pen 5 02/13/2018 03/13/2018 Route: SUBCUTANEOUS Sig: Inject 140 Units subcutaneously every morning. Disc: Reason for discontinue is not on file. Encounter Status:Closed by TESHA (PHARMACIST)SAMAN on 03/13/18 PROTHROMBIN TIME W/INR Collected: 03/07/2018 Status: F Source: [place] 8:36 AM [facility] REPOSITORY TYPE CODE TESTS RESULT OUT OF RANGE REFERENCE UNITS LAB L300.4150 11.7-14.9 SECONDS Normal PROTIME 13.7 LAB L300.4200 Normal INR 1.1 Performed By: #### L300.3900, L300.4310 #### [facility] [place], [address] PARTIAL THROMBOPLAST Collected: 03/07/2018 Status: F Source: [place] TIME 8:36 AM [facility] REPOSITORY TYPE CODE TESTS RESULT OUT OF RANGE REFERENCE UNITS LAB L300.4310 24.1-36.2 Seconds Normal PTT 30.3 Performed By: #### L300.3900, L300.4310 #### [facility] [address] [place], [place], [address] CBC-COMPLETE BLOOD CNT Collected: 03/07/2018 Status: F Source: [place] NO DIFF 8:36 AM [facility] REPOSITORY TYPE CODE TESTS RESULT OUT OF RANGE REFERENCE UNITS LAB L100.1000 4.4-11.0 K/mm3 Normal WBC 7.1 LAB L100.1200 4.6-6.2 M/mm3 Normal RBC 5.94 LAB L100.1300 13.0-16.5 g/dl High HGB 17.4 LAB L100.1400 40-54 % Normal HCT 51.1 LAB L100.1500 80-94 fL Normal MCV 86.0 LAB L100.1600 27.0-32.0 pg Normal MCH 29.3 LAB L100.1700 32-36 g/gl Normal MCHC 34.1 LAB L100.1810 11.6-14.6 % Normal RDW CV 13.7 LAB L100.1820 35.1-43.9 fl Normal RDW SD 43.1 LAB L100.1900 150-450 K/mm3 Normal PLT 203 LAB L100.2000 6.2-12.0 fl Normal MPV 10.6 Performed By: #### L100.0500 #### [facility] [address] [facility]. [place], [place], [address] PERIOD AND VOLUME Collected: 02/19/2018 Status: F Source: [place] 4:00 AM [facility] REPOSITORY TYPE CODE TESTS RESULT OUT OF REFERENCE UNITS RANGE LAB PER hr Period 24 LAB VOL mL Volume 2925 Performed By: #### UNAD, UTP24 #### [facility] [address] [place], [place] [address] SODIUM,URINE,24HR Collected: Status: F Source: [place] 02/19/2018 4:00 AM [facility] REPOSITORY TYPE CODE TESTS RESULT OUT OF RANGE REFERENCE UNITS LAB UNAT 40-220 mmol/24hr 211 Sodium,Urine ,24 hr Performed By: #### UNAD, UTP24 #### [facility] [address] [place], [place] [address] PROTEIN URINE 24 HR Collected: 02/19/2018 Status: F Source: [place] 4:00 AM [facility] REPOSITORY TYPE CODE TESTS RESULT OUT OF REFERENCE UNITS RANGE LAB TP24GM <0.16 gm/24 Hr High Protein Urine 17.37 Performed By: #### UNAD, UTP24 #### [facility] [address] [place], [place] [address] PROGRESS Observed: 02/17/2018 Status: COMPLETED Source: [place] 8:18 AM [facility] REPOSITORY HNO ID: [id number] Author: Leida Cisneros Service: (none) Author Type: Physician Type: Progress Notes Filed: 02/17/2018 11:28 AM Note Text: Reason for Visit Patient presents with: Established Patient: 1 monht follow up- swelling Jake Blankenship is a 52 year old male who presents here today for Above Complaints.. Health Maintenance BP CONTROLLED (<130/80) DTAP,TDAP,TD(6 - Tdap) COLORECTAL CANCER SCREENING,SEE MODIFIER DILATED RETINAL EXAM LDL CHOLESTEROL HPI He has been to see the needle process felt goods supervisor Dr. Colmenares, , who started him on a different water pill along with putting him on lasix 40 mgs BID along with metaloxone which together has made him loose some water weight., He notes his SOB of breath is getting better. We did note that the optimization analyst is going to get back to him. We think he may have nephrotic process going on. His sugars are better controlled, it is bet 95 to 170. He has been using the sleep machine. Discussed likely nephrotic process going on. Dr Raymundo optimization analyst. No problem-specific Assessment AND Plan notes found for this encounter. PAST MEDICAL HISTORY Diagnosis Date - CHF (congestive heart failure) ([facility]) 10/18/2017 - Diabetes (HCC) - Hypertension - WI (myocardial infarction) (HCC) 03-12-09 stent placement - Myocardial infarction (HCC) 03/16/2014 PAST SURGICAL HISTORY Procedure Laterality Date - CABG (5) VENOUS GRAFTS AND ARTERIAL GRAFT(S) 03/17 - PAST SURGICAL HISTORY OF ORIF LMF with pins - REMOVAL OF TONSILS,<12 Y/O Tonsillectomy FAMILY HISTORY Problem Relation Age of Onset - Cancer Mother Social History Substance Use Topics - Smoking status: Never Smoker - Smokeless tobacco: Former User Quit date: 01/14/2014 - Alcohol use No Past medical history, appointments, medications, allergies reviewed. Pertinent Lab/Diagnostic Studies are reviewed and discussed today Current Outpatient Prescriptions: - Insulin [place], Disposable, (PEN NEEDLE) 32 gauge x ndle - furosemide (LASIX) 40 mg tablet - amLODIPine (NORVASC) 10 mg tablet - insulin glargine U-300 conc (TOUJEO MAX U-300 SOLOSTAR) 300 unit/mL (3 mL) inpn - metOLAzone (ZAROXOLYN) 2.5 mg tablet - benzonatate (TESSALON PERLES) 100 mg capsule - atorvastatin (LIPITOR) 40 mg tablet - insulin lispro (HUMALOG KWIKPEN) 100 unit/mL inpn - losartan (COZAAR) 100 mg tablet - KLOR-CON M10 10 mEq tablet - ferrous sulfate 325 mg (65 mg iron) tablet - COMPOUNDED PRESCRIPTION - omeprazole (PRILOSEC) 20 mg capsule - albuterol HFA (VENTOLIN HFA) 90 mcg/actuation inhaler - carvedilol (COREG) 25 mg tablet - aspirin, enteric coated (ASPIR-81) 81 mg EC tablet Review of Systems CONSTITUTIONAL: No fevers, chills night sweats, unintended weight loss CARDIOVASCULAR: No chest pain, dyspnea, palpitations, orthopnea, PND, ankle edema. PULM: No dyspnea, unexplained cough. GI: No dysphagia/odynophagia, problematic reflux, constipation, diarrhea, changes in stool habits, hematochezia, melena. : No new urinary complaints, including dysuria, gross hematuria or pyuria. NEURO: No new balance problems, peripheral weakness/paresthesias or numbness of concern. Physical Exam BP 140/76 (BP Site: Left Arm, BP Position: Sitting, BP Cuff Size: Large Adult) Resp 18 Ht 170.2 cm (5' 7) Wt (!) 160.6 kg (354 lb) BMI 55.44 kg/m? General appearance: Well appearing, alert, in no acute distress, well nourished. Skin: Skin color, texture, turgor normal, no suspicious rashes or lesions Head: Normocephalic, no masses, lesions, tenderness or abnormalities Eyes: Anicteric sclera. Pupils are equally round and reactive to light. Extraocular movements are intact. Lungs: Lungs clear to auscultation. No wheezing, rhonchi, rales Heart: RRR without murmur, gallop, or rubs. Extremities: No deformities, edema, skin discoloration, clubbing or cyanosis. Good capillary refill. ASSESSMENT/PLAN: 1. Pedal edema - ICD9: 782.3, ICD10: R60.0 (primary diagnosis) ? Nephrotic process going client onboarding analyst back in a week if he does not hear back from the optimization analyst 2. Hypoalbuminemia - ICD9: 273.8, ICD10: E88.09 To call back in a week, if he does not hear from Dr. Raymundo 3. MELODIE (obstructive sleep apnea) AHI 11 - ICD9: 327.23, ICD10: G47.33 4. Proteinuria, unspecified type - ICD9: 791.0, ICD10: R80.9 5. Uncontrolled hypertension - ICD9: 401.9, ICD10: I10 - good control - Recommended regular aerobic exercise. - Recommend home blood pressure monitoring, to bring results in on next visit - Goal of BP <130/80 6. Uncontrolled type 2 diabetes mellitus with insulin therapy (HCC) - ICD9: 250.02, V58.67, ICD10: E11.65, Z79.4 uncontrolled. - Continue current medications LEIDA CISNEROS MD CNOV Observed: 02/17/2018 Status: COMPLETED Source: [place] 8:00 AM [facility] REPOSITORY Office Visit (INTMWS) JAKE BLANKENSHIP ([id number]) 1965 M Date Time Provider Department 02/17/18 8:00 AM LEIDA CISNEROS INTMWS During your visit today, we recorded the following information about you: Respiration Blood pressure Weight Height 18/minute 140/76 160.6 kg 1.702 m LEIDA CISNEROS MD 02/17/2018 11:28 AM Signed Reason for Visit Patient presents with: Established Patient: 1 monht follow up- swelling Jake Blankenship is a 52 year old male who presents here today for Above Complaints.. Health Maintenance BP CONTROLLED (<130/80) DTAP,TDAP,TD(6 - Tdap) COLORECTAL CANCER SCREENING,SEE MODIFIER DILATED RETINAL EXAM LDL CHOLESTEROL HPI He has been to see the needle process felt goods supervisor Dr. Colmenares, , who started him on a different water pill along with putting him on lasix 40 mgs BID along with metaloxone which together has made him loose some water weight., He notes his SOB of breath is getting better. We did note that the optimization analyst is going to get back to him. We think he may have nephrotic process going on. His sugars are better controlled, it is bet 95 to 170. He has been using the sleep machine. Discussed likely nephrotic process going on. Dr Raymundo optimization analyst. No problem-specific Assessment AND Plan notes found for this encounter. PAST MEDICAL HISTORY Diagnosis Date - CHF (congestive heart failure) ([facility]) 10/18/2017 - Diabetes ([facility]) - Hypertension - WI (myocardial infarction) ([facility]) 03-12-09 stent placement - Myocardial infarction ([facility]) 03/16/2014 PAST SURGICAL HISTORY Procedure Laterality Date - CABG (5) VENOUS GRAFTS AND ARTERIAL GRAFT(S) 03/17 - PAST SURGICAL HISTORY OF ORIF LMF with pins - REMOVAL OF TONSILS,<12 Y/O Tonsillectomy FAMILY HISTORY Problem Relation Age of Onset - Cancer Mother Social History Substance Use Topics - Smoking status: Never Smoker - Smokeless tobacco: Former User Quit date: 01/14/2014 - Alcohol use No Past medical history, appointments, medications, allergies reviewed. Pertinent Lab/Diagnostic Studies are reviewed and discussed today Current Outpatient Prescriptions: - Insulin [place], Disposable, (PEN NEEDLE) 32 gauge x ndle - furosemide (LASIX) 40 mg tablet - amLODIPine (NORVASC) 10 mg tablet - insulin glargine U-300 conc (TOUJEO MAX U-300 SOLOSTAR) 300 unit/mL (3 mL) inpn - metOLAzone (ZAROXOLYN) 2.5 mg tablet - benzonatate (TESSALON PERLES) 100 mg capsule - atorvastatin (LIPITOR) 40 mg tablet - insulin lispro (HUMALOG KWIKPEN) 100 unit/mL inpn - losartan (COZAAR) 100 mg tablet - KLOR-CON M10 10 mEq tablet - ferrous sulfate 325 mg (65 mg iron) tablet - COMPOUNDED PRESCRIPTION - omeprazole (PRILOSEC) 20 mg capsule - albuterol HFA (VENTOLIN HFA) 90 mcg/actuation inhaler - carvedilol (COREG) 25 mg tablet - aspirin, enteric coated (ASPIR-81) 81 mg EC tablet Review of Systems CONSTITUTIONAL: No fevers, chills night sweats, unintended weight loss CARDIOVASCULAR: No chest pain, dyspnea, palpitations, orthopnea, PND, ankle edema. PULM: No dyspnea, unexplained cough. GI: No dysphagia/odynophagia, problematic reflux, constipation, diarrhea, changes in stool habits, hematochezia, melena. : No new urinary complaints, including dysuria, gross hematuria or pyuria. NEURO: No new balance problems, peripheral weakness/paresthesias or numbness of concern. Physical Exam BP 140/76 (BP Site: Left Arm, BP Position: Sitting, BP Cuff Size: Large Adult) Resp 18 Ht 170.2 cm (5' 7) Wt (!) 160.6 kg (354 lb) BMI 55.44 kg/m? General appearance: Well appearing, alert, in no acute distress, well nourished. Skin: Skin color, texture, turgor normal, no suspicious rashes or lesions Head: Normocephalic, no masses, lesions, tenderness or abnormalities Eyes: Anicteric sclera. Pupils are equally round and reactive to light. Extraocular movements are intact. Lungs: Lungs clear to auscultation. No wheezing, rhonchi, rales Heart: RRR without murmur, gallop, or rubs. Extremities: No deformities, edema, skin discoloration, clubbing or cyanosis. Good capillary refill. ASSESSMENT/PLAN: 1. Pedal edema - ICD9: 782.3, ICD10: R60.0 (primary diagnosis) ? Nephrotic process going client onboarding analyst back in a week if he does not hear back from the optimization analyst 2. Hypoalbuminemia - ICD9: 273.8, ICD10: E88.09 To call back in a week, if he does not hear from Dr. Raymundo 3. MELODIE (obstructive sleep apnea) AHI 11 - ICD9: 327.23, ICD10: G47.33 4. Proteinuria, unspecified type - ICD9: 791.0, ICD10: R80.9 5. Uncontrolled hypertension - ICD9: 401.9, ICD10: I10 - good control - Recommended regular aerobic exercise. - Recommend home blood pressure monitoring, to bring results in on next visit - Goal of BP <130/80 6. Uncontrolled type 2 diabetes mellitus with insulin therapy (HCC) - ICD9: 250.02, V58.67, ICD10: E11.65, Z79.4 uncontrolled. - Continue current medications MD Dominga GALINDO LPN 02/17/2018 8:48 AM Signed Patient was given his patient assistance medication Humalog. Dominga Stauffer LPN Referring Provider: LEIDA CISNEROS [[id number]] Allergies As of Date: 02/17/2018 Noted Allergy Reaction PRAVACHOL (PRAVASTATIN SODIUM) 08/11/2009 5 - Intolerance Comments: Myalgias/arthralgias. Resolved off med. Date Reviewed: 02/17/2018 Reviewed by: Dominga Stauffer LPN - Fully Assessed Reason for Visit: Established Patient [175] Cmt: 1 monht follow up- swelling Primary Visit Diagnosis:Pedal edema [R60.0] Other Visit Diagnoses:Hypoalbuminemia [E88.09] MELODIE (obstructive sleep apnea) AHI 11 [G47.33] Proteinuria, unspecified type [R80.9] Uncontrolled hypertension [I10] Uncontrolled type 2 diabetes mellitus with insulin therapy (HCC) [E11.65, Z79.4] Order(s):SODIUM 24 HR URINE [SQUNAD] Order #: [id number] FUTURE Prescriptions as of 02/17/2018 Sig: PEN NEEDLE, DIABETIC 32 GAUGE* Use one pen needle with Touje* FUROSEMIDE 40 MG TABLET Take 2 tablets by mouth twice* AMLODIPINE 10 MG TABLET Take 1 tablet by mouth once d* INSULIN GLARGINE (U-300) CONC* Inject 140 Units subcutaneous* METOLAZONE 2.5 MG TABLET 1 tablet as needed. Leg swell* BENZONATATE 100 MG CAPSULE Take 1 capsule by mouth three* ATORVASTATIN 40 MG TABLET TAKE ONE TABLET BY MOUTH ONCE* INSULIN LISPRO (U-100) 100 UN* Inject 30-50 Units subcutaneo* LOSARTAN 100 MG TABLET Take 1 tablet by mouth once d* KLOR-CON M10 MEQ TABLET,EXTEN* Take 1 tablet by mouth once d* FERROUS SULFATE 325 MG (65 MG* TWICE DAILY WITH MEALS COMPOUNDED PRESCRIPTION Rx compression socks. Name of* OMEPRAZOLE 20 MG CAPSULE,ANAI* TAKE ONE CAPSULE BY MOUTH ONC* ALBUTEROL SULFATE HFA 90 MCG/* Inhale 2 Puffs as instructed * CARVEDILOL 25 MG TABLET Take 1 tablet by mouth twice * ASPIRIN 81 MG TABLET,DELAYED * Take 1 tablet by mouth once d* Problem List As Of Date 02/17/2018 Noted Resolved Coronary Artery Disease [I25.10] INVALID FOR* s/p Angioplasty with Stent INVALID FOR* Uncontrolled hypertension [I10] INVALID FOR* More... Hyperlipidemia with target LDL less than 70 [E7*INVALID FOR* Diabetes mellitus (HCC) [E11.9] INVALID FOR*10/15/2013 Proteinuria [R80.9] INVALID FOR* More... Uncontrolled type 2 diabetes mellitus with insu*INVALID FOR* Myocardial infarction (HCC) [I21.9] INVALID FOR* Edema [R60.9] INVALID FOR* MELODIE (obstructive sleep apnea) AHI 11 [G47.33] INVALID FOR* Obesity, Class III, BMI 40-49.9 (morbid obesity*INVALID FOR* Acute on chronic congestive heart failure (HCC)*INVALID FOR* Visit Notes: >> Dominga Stauffer LPN TueFeb 17, 2018 8:48 AM Status: Signed Patient was given his patient assistance medication Humalog. Dominga Stauffer LPN Encounter Status:Closed by LEIDA CISNEROS MD on 02/17/18 BASIC METABOLIC Collected: 02/15/2018 Status: F Source: ROSA PROFILE (BMP) 7:26 AM [facility] REPOSITORY TYPE CODE TESTS RESULT OUT OF RANGE REFERENCE UNITS LAB L501.0100 74-106 mg/dL High GLU 154 Result Comment: Fasting Glucose result greater than or equal to 126 mg/dL suggests DIABETES MELLITUS per A.D.A. criteria. Please note revised GLUCOSE reference range effective 2017. LAB L501.1000 7-18 mg/dL High BUN 32 LAB L501.1100 0.70-1.30 mg/dL High CREAT,SERUM 1.72 Result Comment: The validity of the calculated GFR AND GFRAA in patients over 70 years has not been determined. Clinical correlation is essential. LAB L501.1110 >60 mL/min Low EST GFR 44 Result Comment: Non- GFR Calc LAB L501.1115 >60 mL/min Low EST GFR - AA 53 Result Comment: GFR Calc LAB L501.1300 10-20 RATIO Normal BUN/CRE 18.6 LAB L501.2200 8.5-10.1 mg/dL CA Normal 8.6 LAB L501.5300 136-145 mmol/L NA Normal 137 LAB L501.5600 3.5-5.1 mmol/L Low K 3.4 LAB L501.5900 98-107 mmol/L CL Normal 102 LAB L501.6100 21.0-32.0 mmol/L Normal CO2 26.0 LAB L501.6200 5-15 Normal GAP 9 Performed By: #### L500.2500 #### [facility] [address] [facility] [place], [address] PROGRESS Observed: 02/13/2018 Status: COMPLETED Source: [place] 9:00 AM [facility] REPOSITORY HNO ID: [id number] Author: Saman Parkinson (Pharmacist) Service: (none) Author Type: Pharmacist Type: Progress Notes Filed: 02/13/2018 4:10 PM Note Text: Patient consents to pharmacy collaborative practice agreement. REASON FOR CONSULT: DM? GOALS: A1c <?8% CONSULTING PROVIDER: Dr. Cisneros?? Date of Consult: 02/2017 Jake Blankenship is a 52 year old male was last seen in [facility] by PCP, Dr. LEIDA CISNEROS MD on 01/17/18. Patient is presenting today for f/u pharmacotherapy management appointment for DM. At last PharmD visit on 12/14 no med changes were made but patient was instructed to start checking BP at home INTERIM HISTORY: URI - feeling better, finished Mucinex DM - thinks the A1c increase is diet-related 02/07 [facility] cardiology appointment - started on metolazone 2.5mg PRN, took 1 pill on 02/07, took 2 pills today - furosemide increased from 80mg QAM and 40mg QPM to 80mg BID 02/03 urgent care - viral URI, given guaifenesin and benzonatae prescriptions 12/29 BP update - amlodipine was increased (past LE edema but patient reported no difference 5 vs 10mg dose) Current DM Medications: Insulin glargine 300 units/mL 140 units QAM (80 units plus 60 units) Insulin lispro 50 units TID meals (if pre-meal BG is 140 or more he takes 50, otherwise takes 30-40) will take some at night if having a snack) Current HTN Medications: Amlodipine 10mg once daily Carvedilol 25mg BID Losartan 100mg once daily Furosemide 80mg BID Metolazone 2.5mg PRN LE swelling Preventative Medications: ? On GEENA/ARB: Yes ? On Statin: Yes ? On ASA: Yes ROS: ? Patient denies CP, SOB, PEREZ, blurred vision, dizziness or lightheadedness ? Patient denies symptoms of hypoglycemia (sweating, anxiety, palpitations, hunger, and tremor) ? Patient denies symptoms of hyperglycemia (polyuria, polydipsia, polyphagia) ? Patient denies potential medication adverse effects DIET/EXERCISE/SOCIAL Hx: ? Eating less in general ? Thinking about starting keto diet with after holidays MEDICATIONS: ? Pill bottles are present. ? Adherence: denies missed doses. ? [facility] ? Rx coverage: amBX and Medicare ? Affordability: no issues, PAP for Humalog, voucher for Toujeo ? Diabetes supplies: Relion ? Organization System: pillbox ACTIVE PROBLEM LIST Coronary Artery Disease S/P Angioplasty With Stent Uncontrolled Hypertension Hyperlipidemia With Target Ldl Less Than 70 Proteinuria Uncontrolled Type 2 Diabetes Mellitus With Insulin Therapy ([facility]) Myocardial Infarction ([facility]) Edema MELODIE (obstructive sleep apnea) AHI 11 Obesity, Class Iii, Bmi 40-49.9 (Morbid Obesity) ([facility]) Acute On Chronic Congestive Heart Failure ([facility]) PAST MEDICAL HISTORY Diagnosis Date - CHF (congestive heart failure) ([facility]) 10/18/2017 - Diabetes ([facility]) - Hypertension - WI (myocardial infarction) ([facility]) 03-12-09 stent placement - Myocardial infarction ([facility]) 03/16/2014 ALLERGIES Allergen Reactions - Pravachol [Pravasta* Intolerance Myalgias/arthralgias. Resolved off med. Medication List Medication Directions Comments Action/Plan albuterol HFA (VENTOLIN HFA) 90 mcg/actuation inhaler Inhale 2 Puffs as instructed every 4 hours as needed for Wheezing/Shortness of Breath. amLODIPine (NORVASC) 5 mg tablet 2 tablets once daily. Increased dose for increased BP at home on 12/29/17 Taking aspirin, enteric coated (ASPIR-81) 81 mg EC tablet Take 1 tablet by mouth once daily. Taking atorvastatin (LIPITOR) 40 mg tablet TAKE ONE TABLET BY MOUTH ONCE DAILY AT BEDTIME FOR CHOLESTEROL Taking benzonatate (TESSALON PERLES) 100 mg capsule Take 1 capsule by mouth three times daily as needed. carvedilol (COREG) 25 mg tablet Take 1 tablet by mouth twice daily with meals. Taking COMPOUNDED PRESCRIPTION Rx compression socks. Name of the company- [employer] 20-30 mm compression Natural rubber gripper toe Model # 503 X-short EASY TOUCH 31 gauge x 3/16 ndle Use with meal-time insulin injections five times daily. ferrous sulfate 325 mg (65 mg iron) tablet TWICE DAILY WITH MEALS out Patient will refill furosemide (LASIX) 40 mg tablet Take 1 tablet by mouth twice daily. guaiFENesin (MUCINEX) 600 mg 12 hr tablet Take 2 tablets by mouth twice daily for 10 days. Finished Discontinued: 02/10/2018 9:59 AM insulin glargine U-300 conc (TOUJEO SOLOSTAR U-300 INSULIN) 300 unit/mL (1.5 mL) inpn Inject 140 Units subcutaneously every morning. 80 units plus 60 units insulin lispro (HUMALOG KWIKPEN) 100 unit/mL inpn Inject 30- 50 Units subcutaneously w MEALS. PATIENT ASSISTANCE - [place] [employer] Insulin [place], Disposable, 31 gauge x 1/4 ndle 5 times daily as directed with meals. insulin syringe,safetyneedle 1 mL 31 gauge x 5/16 syrg Use three times daily with regular insulin Insulin Syringe-Needle U-100 1 mL 31 gauge x 5/16 syrg None Entered KLOR-CON M10 10 mEq tablet Take 1 tablet by mouth once daily. Taking losartan (COZAAR) 100 mg tablet Take 1 tablet by mouth once daily. Taking omeprazole (PRILOSEC) 20 mg capsule TAKE ONE CAPSULE BY MOUTH ONCE DAILY Taking Rx meds not listed in EPIC: none OTCs: none Herbals: none GLYCEMIC CONTROL: ? Glucometer present at visit: No ? SMBG?s: ? FBGs 130-180 ? PPBG usually < 200, yesterday 300 after cake ? Hypoglycemia: denies VITALS: Wt (!) 161.5 kg (356 lb) BMI 55.76 kg/m? BP cuff was malfunctioning during this visit Last 3 Encounter BP Readings: Date: BP: 02/03/2018 130/90 01/17/2018 146/82 12/14/2017 156/79 Wt: 163.7 kg (360 lb 12.8 oz) BMI: 56.51 kg/(m2) LABS Lab Results Component Value Date HBA1C 7.7 02/03/2018 HBA1C 7.4 01/17/2018 HBA1C 6.8 11/01/2017 CMP: Glucose 141 02/03/2018 BUN 23 02/03/2018 Creatinine 1.57 02/03/2018 Sodium 139 02/03/2018 Potassium 4.0 02/03/2018 Chloride 104 02/03/2018 CO2 21 02/03/2018 Protein, Total 6.7 02/03/2018 Albumin 2.8 02/03/2018 Calcium 8.9 02/03/2018 Alkaline Phosphatase 94 02/03/2018 Bilirubin, Total 0.3 02/03/2018 AST 27 02/03/2018 ALT 24 02/03/2018 GFR 46 Estimated Creatinine Clearance: 80 mL/min (A) (based on SCr of 1.57 mg/dL (H)). Last Lipid Panel Lab Results Component Value Date CHOL 135 02/02/2017 Lab Results Component Value Date HDL 29 02/02/2017 Lab Results Component Value Date LDL 62 02/02/2017 Lab Results Component Value Date TG 219 02/02/2017 Albumin/Creat Ratio (mg/g) Date Value 02/02/2017 1,727 (H) PHARMACOTHERAPY ASSESSMENT/PLAN: 1. Uncontrolled type 2 diabetes mellitus with insulin therapy (HCC) - ICD9: 250.02, V58.67, ICD10: E11.65, Z79.4 (primary diagnosis) A1c goal <?8%, patient is?at goal. SMBG reported to be mostly at goal. Patient compliant with and tolerating current regimen. Will continue current regimen at this time and make further adjustments with more BG data. Renal fxn improved back to baseline (TALITA in hospital) (could re-initiate metformin but patient reluctant d/t feeling better without it, likes taking fewer pills, will continue to hold for now, can re-address at future visits)?and LFTs WNL?and appropriate for continued therapy. ? CONTINUE insulin glargine 140 units QAM (change to Toujeo MAX, can use same coupon as regular Toujeo), lispro 30-50 units TID meals ? Instructed patient to continue checking BGs, bring glucometer to next visit 2. Uncontrolled hypertension - ICD9: 401.9, ICD10: I10 BP goal <?130/80, pt is not?at goal on current therapy. Unable to obtain BP today. Tolerating and compliant with therapy. BP therapies at max doses. Could add back spironolactone for additional BP-lowering. Patient reports at-home BPs have been at goal, will obtain via phone call next week. Continue regimen at this time. Renal fxn and K+ WNL. ? CONTINUE losartan 100mg, amlodipine 10mg once daily, carvedilol 25mg BID, furosemide 80mg BID, metolazone 2.5mg PRN LE swelling ? Instructed patient to check BPs daily and write down for PharmD call next week Health Maintenance issues addressed: DILATED RETINAL EXAM due on 04/26/2017 Patient is scheduled to see PCP 02/17. Patient to return to clinic for PharmD f/u on 03/13. Patient verbalized understanding of instructions. Saman Parkinson, PharmD, BCPS CNOV Observed: 02/13/2018 Status: COMPLETED Source: [place] 9:00 AM [facility] REPOSITORY Office Visit (PHMEWO) JAKE BLANKENSHIP ([id number]) 1965 M Date Time Provider Department 02/13/18 9:00 AM TESHA (PHARMACIST)SAMAN During your visit today, we recorded the following information about you: Weight 161.5 kg YESY PAGAN 02/13/2018 4:10 PM Signed Patient consents to pharmacy collaborative practice agreement. REASON FOR CONSULT: DM? GOALS: A1c <?8% CONSULTING PROVIDER: Dr. Cisneros?? Date of Consult: 02/2017 Jake Blankenship is a 52 year old male was last seen in [facility] by PCP, Dr. LEIDA CISNEROS MD on 01/17/18. Patient is presenting today for f/u pharmacotherapy management appointment for DM. At last PharmD visit on 12/14 no med changes were made but patient was instructed to start checking BP at home INTERIM HISTORY: URI - feeling better, finished Mucinex DM - thinks the A1c increase is diet-related 02/07 [facility] cardiology appointment - started on metolazone 2.5mg PRN, took 1 pill on 02/07, took 2 pills today - furosemide increased from 80mg QAM and 40mg QPM to 80mg BID 02/03 urgent care - viral URI, given guaifenesin and benzonatae prescriptions 12/29 BP update - amlodipine was increased (past LE edema but patient reported no difference 5 vs 10mg dose) Current DM Medications: Insulin glargine 300 units/mL 140 units QAM (80 units plus 60 units) Insulin lispro 50 units TID meals (if pre-meal BG is 140 or more he takes 50, otherwise takes 30-40) will take some at night if having a snack) Current HTN Medications: Amlodipine 10mg once daily Carvedilol 25mg BID Losartan 100mg once daily Furosemide 80mg BID Metolazone 2.5mg PRN LE swelling Preventative Medications: ? On GEENA/ARB: Yes ? On Statin: Yes ? On ASA: Yes ROS: ? Patient denies CP, SOB, PEREZ, blurred vision, dizziness or lightheadedness ? Patient denies symptoms of hypoglycemia (sweating, anxiety, palpitations, hunger, and tremor) ? Patient denies symptoms of hyperglycemia (polyuria, polydipsia, polyphagia) ? Patient denies potential medication adverse effects DIET/EXERCISE/SOCIAL Hx: ? Eating less in general ? Thinking about starting keto diet with after holidays MEDICATIONS: ? Pill bottles are present. ? Adherence: denies missed doses. ? [facility] ? Rx coverage: [employer] and Medicare ? Affordability: no issues, PAP for Humalog, voucher for Toujeo ? Diabetes supplies: [employer] ? Organization System: pillbox ACTIVE PROBLEM LIST Coronary Artery Disease S/P Angioplasty With Stent Uncontrolled Hypertension Hyperlipidemia With Target Ldl Less Than 70 Proteinuria Uncontrolled Type 2 Diabetes Mellitus With Insulin Therapy ([facility]) Myocardial Infarction ([facility]) Edema MELODIE (obstructive sleep apnea) AHI 11 Obesity, Class Iii, Bmi 40-49.9 (Morbid Obesity) ([facility]) Acute On Chronic Congestive Heart Failure ([facility]) PAST MEDICAL HISTORY Diagnosis Date - CHF (congestive heart failure) ([facility]) 10/18/2017 - Diabetes ([facility]) - Hypertension - [place] (myocardial infarction) ([facility]) 03-12-09 stent placement - Myocardial infarction ([facility]) 03/16/2014 ALLERGIES Allergen Reactions - Pravachol [Pravasta* Intolerance Myalgias/arthralgias. Resolved off med. Medication List Medication Directions Comments Action/Plan albuterol HFA (VENTOLIN HFA) 90 mcg/actuation inhaler Inhale 2 Puffs as instructed every 4 hours as needed for Wheezing/Shortness of Breath. amLODIPine (NORVASC) 5 mg tablet 2 tablets once daily. Increased dose for increased BP at home on 12/29/17 Taking aspirin, enteric coated (ASPIR-81) 81 mg EC tablet Take 1 tablet by mouth once daily. Taking atorvastatin (LIPITOR) 40 mg tablet TAKE ONE TABLET BY MOUTH ONCE DAILY AT BEDTIME FOR CHOLESTEROL Taking benzonatate (TESSALON PERLES) 100 mg capsule Take 1 capsule by mouth three times daily as needed. carvedilol (COREG) 25 mg tablet Take 1 tablet by mouth twice daily with meals. Taking COMPOUNDED PRESCRIPTION Rx compression socks. Name of the company- [employer] 20-30 mm compression Natural rubber gripper toe Model # 503 X-short EASY TOUCH 31 gauge x 3/16 ndle Use with meal-time insulin injections five times daily. ferrous sulfate 325 mg (65 mg iron) tablet TWICE DAILY WITH MEALS out Patient will refill furosemide (LASIX) 40 mg tablet Take 1 tablet by mouth twice daily. guaiFENesin (MUCINEX) 600 mg 12 hr tablet Take 2 tablets by mouth twice daily for 10 days. Finished Discontinued: 02/10/2018 9:59 AM insulin glargine U-300 conc (TOUJEO SOLOSTAR U-300 INSULIN) 300 unit/mL (1.5 mL) inpn Inject 140 Units subcutaneously every morning. 80 units plus 60 units insulin lispro (HUMALOG KWIKPEN) 100 unit/mL inpn Inject 30- 50 Units subcutaneously w MEALS. PATIENT ASSISTANCE - [place] [employer] Insulin [place], Disposable, 31 gauge x 1/4 ndle 5 times daily as directed with meals. insulin syringe,safetyneedle 1 mL 31 gauge x 5/16 syrg Use three times daily with regular insulin Insulin Syringe-Needle U-100 1 mL 31 gauge x 5/16 syrg None Entered KLOR-CON M10 10 mEq tablet Take 1 tablet by mouth once daily. Taking losartan (COZAAR) 100 mg tablet Take 1 tablet by mouth once daily. Taking omeprazole (PRILOSEC) 20 mg capsule TAKE ONE CAPSULE BY MOUTH ONCE DAILY Taking Rx meds not listed in EPIC: none OTCs: none Herbals: none GLYCEMIC CONTROL: ? Glucometer present at visit: No ? SMBG?s: ? FBGs 130-180 ? PPBG usually < 200, yesterday 300 after cake ? Hypoglycemia: denies VITALS: Wt (!) 161.5 kg (356 lb) BMI 55.76 kg/m? BP cuff was malfunctioning during this visit Last 3 Encounter BP Readings: Date: BP: 02/03/2018 130/90 01/17/2018 146/82 12/14/2017 156/79 Wt: 163.7 kg (360 lb 12.8 oz) BMI: 56.51 kg/(m2) LABS Lab Results Component Value Date HBA1C 7.7 02/03/2018 HBA1C 7.4 01/17/2018 HBA1C 6.8 11/01/2017 CMP: Glucose 141 02/03/2018 BUN 23 02/03/2018 Creatinine 1.57 02/03/2018 Sodium 139 02/03/2018 Potassium 4.0 02/03/2018 Chloride 104 02/03/2018 CO2 21 02/03/2018 Protein, Total 6.7 02/03/2018 Albumin 2.8 02/03/2018 Calcium 8.9 02/03/2018 Alkaline Phosphatase 94 02/03/2018 Bilirubin, Total 0.3 02/03/2018 AST 27 02/03/2018 ALT 24 02/03/2018 GFR 46 Estimated Creatinine Clearance: 80 mL/min (A) (based on SCr of 1.57 mg/dL (H)). Last Lipid Panel Lab Results Component Value Date CHOL 135 02/02/2017 Lab Results Component Value Date HDL 29 02/02/2017 Lab Results Component Value Date LDL 62 02/02/2017 Lab Results Component Value Date TG 219 02/02/2017 Albumin/Creat Ratio (mg/g) Date Value 02/02/2017 1,727 (H) PHARMACOTHERAPY ASSESSMENT/PLAN: 1. Uncontrolled type 2 diabetes mellitus with insulin therapy (HCC) - ICD9: 250.02, V58.67, ICD10: E11.65, Z79.4 (primary diagnosis) A1c goal <?8%, patient is?at goal. SMBG reported to be mostly at goal. Patient compliant with and tolerating current regimen. Will continue current regimen at this time and make further adjustments with more BG data. Renal fxn improved back to baseline (TALITA in hospital) (could re-initiate metformin but patient reluctant d/t feeling better without it, likes taking fewer pills, will continue to hold for now, can re-address at future visits)?and LFTs WNL?and appropriate for continued therapy. ? CONTINUE insulin glargine 140 units QAM (change to Toujeo MAX, can use same coupon as regular Toujeo), lispro 30-50 units TID meals ? Instructed patient to continue checking BGs, bring glucometer to next visit 2. Uncontrolled hypertension - ICD9: 401.9, ICD10: I10 BP goal <?130/80, pt is not?at goal on current therapy. Unable to obtain BP today. Tolerating and compliant with therapy. BP therapies at max doses. Could add back spironolactone for additional BP-lowering. Patient reports at-home BPs have been at goal, will obtain via phone call next week. Continue regimen at this time. Renal fxn and K+ WNL. ? CONTINUE losartan 100mg, amlodipine 10mg once daily, carvedilol 25mg BID, furosemide 80mg BID, metolazone 2.5mg PRN LE swelling ? Instructed patient to check BPs daily and write down for PharmD call next week Health Maintenance issues addressed: DILATED RETINAL EXAM due on 04/26/2017 Patient is scheduled to see PCP 02/17. Patient to return to clinic for PharmD f/u on 03/13. Patient verbalized understanding of instructions. Saman Parkinson, PharmD, BCPS SAMAN PARKINSON, PHARMACIST 02/13/2018 9:36 AM Signed Check sugars before and after meals Check blood pressure daily Call Saman 02/20 with blood pressure numbers Referring Provider: LEIDA CISNEROS [[id number]] Allergies As of Date: 02/13/2018 Noted Allergy Reaction PRAVACHOL (PRAVASTATIN SODIUM) 08/11/2009 5 - Intolerance Comments: Myalgias/arthralgias. Resolved off med. Date Reviewed: 02/03/2018 Reviewed by: Mary ([facility]) Radha - Fully Assessed Reason for Visit: Allied Health Visit [5] Cmt: DM follow-up Primary Visit Diagnosis:Uncontrolled type 2 diabetes mellitus with insulin therapy (HCC) [E11.65, Z79.4] Other Visit Diagnosis:Uncontrolled hypertension [I10] Order(s):Insulin [place], Disposable, (PEN NEEDLE) 32 gauge x ndleUse one pen needle with Toujeo and Humalog injections - 5 needles dailyDisp: 200 EachRfl: 5 furosemide (LASIX) 40 mg tabletTake 2 tablets by mouth twice daily. Dosage changed 02/07/18 per [facility] CardiologyDisp: 120 tabletRfl: 3 amLODIPine (NORVASC) 10 mg tabletTake 1 tablet by mouth once daily.Disp: 30 tabletRfl: 11 insulin glargine U-300 conc (TOUJEO MAX U-300 SOLOSTAR) 300 unit/mL (3 mL) inpnInject 140 Units subcutaneously every morning.Disp: 6 PenRfl: 5 metOLAzone (ZAROXOLYN) 2.5 mg tablet1 tablet as needed. Leg swelling. Per [facility] CardiologyDisp: Rfl: Prescriptions as of 02/13/2018 Sig: PEN NEEDLE, DIABETIC 32 GAUGE* Use one pen needle with Touje* FUROSEMIDE 40 MG TABLET Take 2 tablets by mouth twice* AMLODIPINE 10 MG TABLET Take 1 tablet by mouth once d* INSULIN GLARGINE (U-300) CONC* Inject 140 Units subcutaneous* METOLAZONE 2.5 MG TABLET 1 tablet as needed. Leg swell* GUAIFENESIN ER 600 MG TABLET,* Take 2 tablets by mouth twice* BENZONATATE 100 MG CAPSULE Take 1 capsule by mouth three* ATORVASTATIN 40 MG TABLET TAKE ONE TABLET BY MOUTH ONCE* INSULIN LISPRO (U-100) 100 UN* Inject 30-50 Units subcutaneo* LOSARTAN 100 MG TABLET Take 1 tablet by mouth once d* KLOR-CON M10 MEQ TABLET,EXTEN* Take 1 tablet by mouth once d* FERROUS SULFATE 325 MG (65 MG* TWICE DAILY WITH MEALS COMPOUNDED PRESCRIPTION Rx compression socks. Name of* OMEPRAZOLE 20 MG CAPSULE,ANAI* TAKE ONE CAPSULE BY MOUTH ONC* ALBUTEROL SULFATE HFA 90 MCG/* Inhale 2 Puffs as instructed * CARVEDILOL 25 MG TABLET Take 1 tablet by mouth twice * ASPIRIN 81 MG TABLET,DELAYED * Take 1 tablet by mouth once d* Problem List As Of Date 02/13/2018 Noted Resolved Coronary Artery Disease [I25.10] INVALID FOR* s/p Angioplasty with Stent INVALID FOR* Uncontrolled hypertension [I10] INVALID FOR* More... Hyperlipidemia with target LDL less than 70 [E7*INVALID FOR* Diabetes mellitus (HCC) [E11.9] INVALID FOR*10/15/2013 Proteinuria [R80.9] INVALID FOR* More... Uncontrolled type 2 diabetes mellitus with insu*INVALID FOR* Myocardial infarction (HCC) [I21.9] INVALID FOR* Edema [R60.9] INVALID FOR* MELODIE (obstructive sleep apnea) AHI 11 [G47.33] INVALID FOR* Obesity, Class III, BMI 40-49.9 (morbid obesity*INVALID FOR* Acute on chronic congestive heart failure (HCC)*INVALID FOR* Other instructions from your clinician: Check sugars before and after meals Check blood pressure daily Call Saman 02/20 with blood pressure numbers Prescriptions ordered this encounter Disp Refills Start End FUROSEMIDE 40 MG TABLET 120 * 3 02/13/2018 02/13/2018 Route: ORAL Sig: Take 2 tablets by mouth twice daily. Dosage changed 02/07/18 per [facility] Cardiology AMLODIPINE 10 MG TABLET 30 t* 11 02/13/2018 02/13/2018 Cmt: Dosage increase Route: ORAL Sig: Take 1 tablet by mouth once daily. INSULIN GLARGINE (U-300) CONC. 300 U* 6 Pen 5 02/13/2018 02/13/2018 Route: SUBCUTANEOUS Sig: Inject 140 Units subcutaneously every morning. PEN NEEDLE, DIABETIC 32 GAUGE X 200 * 5 02/13/2018 Sig: Use one pen needle with Toujeo and Humalog injections - 5 needles daily FUROSEMIDE 40 MG TABLET 120 * 3 02/13/2018 Route: ORAL Sig: Take 2 tablets by mouth twice daily. Dosage changed 02/07/18 per [facility] Cardiology AMLODIPINE 10 MG TABLET 30 t* 11 02/13/2018 Route: ORAL Sig: Take 1 tablet by mouth once daily. INSULIN GLARGINE (U-300) CONC. 300 U* 6 Pen 5 02/13/2018 Route: SUBCUTANEOUS Sig: Inject 140 Units subcutaneously every morning. METOLAZONE 2.5 MG TABLET 02/13/2018 Class: Med Update Si tablet as needed. Leg swelling. Per [facility] Cardiology Medications Discontinued During This Encounter furosemide (LASIX) 40 mg tablet 60 t* 5 11/15/2017 02/13/2018 Route: ORAL Sig: Take 1 tablet by mouth twice daily. Disc: Reason for discontinue is not on file. amLODIPine (NORVASC) 5 mg tablet 12/29/2017 02/13/2018 Class: Med Update Si tablets once daily. Increased dose for increased BP at home on 12/29/17 Disc: Reason for discontinue is not on file. insulin glargine U-300 conc (TOUJEO * 12 P* 3 02/10/2018 02/13/2018 Route: SUBCUTANEOUS Sig: Inject 140 Units subcutaneously every morning. 80 units plus 60 units Disc: Reason for discontinue is not on file. EASY TOUCH 31 gauge x 3/16 ndle 500 * 3 10/06/2016 02/13/2018 Sig: Use with meal-time insulin injections five times daily. Disc: Reason for discontinue is not on file. Insulin [place], Disposable, 31 gaug* 300 * 5 11/15/2017 02/13/2018 Si times daily as directed with meals. Disc: Reason for discontinue is not on file. Insulin Syringe-Needle U-100 1 mL 31* 04/11/2017 02/13/2018 Class: Historical Med Sig: Disc: Reason for discontinue is not on file. insulin syringe,safetyneedle 1 mL 31* 1 Box 3 04/11/2017 02/13/2018 Sig: Use three times daily with regular insulin Disc: Reason for discontinue is not on file. furosemide (LASIX) 40 mg tablet 120 * 3 02/13/2018 02/13/2018 Route: ORAL Sig: Take 2 tablets by mouth twice daily. Dosage changed 02/07/18 per [facility] Cardiology Disc: Reason for discontinue is not on file. amLODIPine (NORVASC) 10 mg tablet 30 t* 11 02/13/2018 02/13/2018 Cmt: Dosage increase Route: ORAL Sig: Take 1 tablet by mouth once daily. Disc: Reason for discontinue is not on file. insulin glargine U-300 conc (TOUJEO * 6 Pen 5 02/13/2018 02/13/2018 Route: SUBCUTANEOUS Sig: Inject 140 Units subcutaneously every morning. Disc: Reason for discontinue is not on file. metOLAzone (ZAROXOLYN) 2.5 mg tablet 02/07/2018 02/13/2018 Class: Historical Med Sig: Disc: Adjust Sig - Block E-Cancel Encounter Status:Closed by TESHA (PHARMACIST)SAMAN on 02/13/18 LUCA Observed: 02/13/2018 Status: COMPLETED Source: [place] 12:00 AM [facility] REPOSITORY Telephone (PHMEWO) JAKE BLANKENSHIP ([id number]) 1965 M Date Time Provider Department 02/13/18 TESHA (PHARMACIST)SAMAN During your visit today, we recorded the following information about you: YESY PAGAN 02/13/2018 4:03 PM Signed Called [facility] to refill patient's Humalog. Refill completed, will be sent to office. Was advised will have to re-enroll in April. Has PharmD f/u on 03/13. Saman Parkinson, PharmD, [facility] Primary Care Clinical Pharmacist [facility] BJ PORTILLO PHARMACIST 03/30/2018 2:43 PM Signed Clinic received fax from [facility] Patient Assistance Program Fax contained paperwork that needs filled out to renew application for Humalog pens PharmD filled out majority of application Need the following information from patient: - Annual adjusted gross income and proof on income (federal tax return, W2, or social security statement) - Social security number (for income verification) - Type of insurance (does he have Medicare Part D?) - Names of authorized representatives (if any) - 1 signature (on page 7 of application) PharmD called patient to inform of the required information Patient said he would stop by the office tomorrow to drop off paperwork PharmD placed application in a labeled envelope and placed at front line leader on second floor - informed patient that when he drops off paperwork, to request the envelope, sign the application and write social security number, and have someone from the front line leader deliver the application and papers to PharmElissa office --> will attempt to submit application next week once PCP signs application Forwarding to PharmD who works with patient Bj Portillo PharmD, [facility] Primary Care Clinical Pharmacist [facility] YESY CERVANTES 04/05/2018 9:02 AM Signed Patient came to office, signed application, provided social security number, and also dropped off income verification form PharmD placed application on PCP's desk for signature Once signed, PharmD will fax application Bj Portillo PharmD, [facility] Primary Care Clinical Pharmacist [facility] YESY CERVANTES 04/06/2018 9:16 AM Signed PCP signed application and returned to PharmD PharmD faxed completed application with income verification today Bj Portillo PharmD, [facility] Primary Care Clinical Pharmacist [facility] YESY PAGAN 04/19/2018 2:04 PM Signed Called [facility] to check on status. Was advised pt application was received, will be processed today. Shipment to office requested. Saman Parkinson PharmD, [facility] April 19, 2018 2:01 PM YESY PAGAN 04/24/2018 4:26 PM Signed Faxed copy of medicare card to [place], per pt request. Saman Parkinson PharmD, [facility] April 24, 2018 4:25 PM Allergies As of Date: 02/13/2018 Noted Allergy Reaction PRAVACHOL (PRAVASTATIN SODIUM) 08/11/2009 5 - Intolerance Comments: Myalgias/arthralgias. Resolved off med. Date Reviewed: 02/03/2018 Reviewed by: Mary ([facility]) Radha - Fully Assessed Reason for Visit: Patient Assistance [[id number]] Cmt: Humalog - [facility] Prescriptions as of 02/13/2018 Sig: PEN NEEDLE, DIABETIC 32 GAUGE* Use one pen needle with Touje* AMLODIPINE 10 MG TABLET Take 1 tablet by mouth once d* METOLAZONE 2.5 MG TABLET 1 tablet as needed. Leg swell* X FUROSEMIDE 40 MG TABLET Take 2 tablets by mouth twice* X INSULIN GLARGINE (U-300) CONC* Inject 140 Units subcutaneous* GUAIFENESIN ER 600 MG TABLET,* Take 2 tablets by mouth twice* X BENZONATATE 100 MG CAPSULE Take 1 capsule by mouth three* X ATORVASTATIN 40 MG TABLET TAKE ONE TABLET BY MOUTH ONCE* INSULIN LISPRO (U-100) 100 UN* Inject 30-50 Units subcutaneo* LOSARTAN 100 MG TABLET Take 1 tablet by mouth once d* KLOR-CON M10 MEQ TABLET,EXTEN* Take 1 tablet by mouth once d* X FERROUS SULFATE 325 MG (65 MG* TWICE DAILY WITH MEALS COMPOUNDED PRESCRIPTION Rx compression socks. Name of* OMEPRAZOLE 20 MG CAPSULE,ANAI* TAKE ONE CAPSULE BY MOUTH ONC* ALBUTEROL SULFATE HFA 90 MCG/* Inhale 2 Puffs as instructed * X CARVEDILOL 25 MG TABLET Take 1 tablet by mouth twice * ASPIRIN 81 MG TABLET,DELAYED * Take 1 tablet by mouth once d* Problem List As Of Date 02/13/2018 Noted Resolved Coronary Artery Disease [I25.10] INVALID FOR* s/p Angioplasty with Stent INVALID FOR* Uncontrolled hypertension [I10] INVALID FOR* More... Hyperlipidemia with target LDL less than 70 [E7*INVALID FOR* Diabetes mellitus (HCC) [E11.9] INVALID FOR*10/15/2013 Proteinuria [R80.9] INVALID FOR* More... Uncontrolled type 2 diabetes mellitus with insu*INVALID FOR* Myocardial infarction (HCC) [I21.9] INVALID FOR* Edema [R60.9] INVALID FOR* MELODIE (obstructive sleep apnea) AHI 11 [G47.33] INVALID FOR* Obesity, Class III, BMI 40-49.9 (morbid obesity*INVALID FOR* Acute on chronic congestive heart failure (HCC)*INVALID FOR* Encounter Status:Closed by TESHA (PHARMACIST)SAMAN on 02/13/18 SILVIA Observed: 02/03/2018 Status: COMPLETED Source: [place] 11:00 AM [facility] REPOSITORY Office Visit (WSTR) JAKE BLANKENSHIP ([id number]) 1965 Date Time Provider Department 02/03/18 11:00 AM MARY GARCIA (ALEX) [facility] During your visit today, we recorded the following information about you: Temperature Pulse Respiration Blood pressure 97.4 degrees 67/minute 20/minute 130/90 Weight 163.7 kg Mary Garcia APRN.CNP 02/03/2018 11:18 AM Signed Subjective The history is provided by the patient and the spouse. URI He complains of cough, shortness of breath and sputum production. There is no difficulty breathing, hoarse voice or wheezing. This is a new problem. The current episode started in the past 7 days. The problem occurs constantly. The problem has been unchanged. The cough is productive of sputum. Associated symptoms include nasal congestion. Pertinent negatives include no ear pain, fever, headaches or sore throat. Jake Blankenship is a 52 year old male who presents with cough, chest congestion and runny nose. He has been taking nyquil and karen seltzer. Sick contacts include his . Review of Systems Constitutional: Negative. Negative for fever. HENT: Positive for congestion. Negative for ear pain, hoarse voice and sore throat. Respiratory: Positive for cough, sputum production and shortness of breath. Negative for wheezing. Gastrointestinal: Negative. Negative for nausea and vomiting. Neurological: Negative. Negative for dizziness and headaches. BP 130/90 Pulse 67 Temp 36.3 ?C (97.4 ?F) (Left Tympanic) Resp 20 Wt (!) 163.7 kg (360 lb 12.8 oz) SpO2 97% BMI 56.51 kg/m? PAST MEDICAL HISTORY Diagnosis Date - CHF (congestive heart failure) ([facility]) 10/18/2017 - Diabetes ([facility]) - Hypertension - [place] (myocardial infarction) ([facility]) 03-12-09 stent placement - Myocardial infarction ([facility]) 03/16/2014 PAST SURGICAL HISTORY Procedure Laterality Date - CABG (5) VENOUS GRAFTS AND ARTERIAL GRAFT(S) 03/17 - PAST SURGICAL HISTORY OF ORIF LMF with pins - REMOVAL OF TONSILS,<12 Y/O Tonsillectomy ALLERGIES Pravachol [Pravastatin Sodium] MEDICATIONS atorvastatin (LIPITOR) 40 mg tablet TAKE ONE TABLET BY MOUTH ONCE DAILY AT BEDTIME FOR CHOLESTEROL amLODIPine (NORVASC) 5 mg tablet 2 tablets once daily. Increased dose for increased BP at home on 12/29/17 insulin glargine U-300 conc (TOUJEO SOLOSTAR U-300 INSULIN) 300 unit/mL (1.5 mL) inpn Inject 140 Units subcutaneously every morning. 80 units plus 60 units insulin lispro (HUMALOG KWIKPEN) 100 unit/mL inpn Inject 30- 50 Units subcutaneously w MEALS. PATIENT ASSISTANCE - EDITH CARES losartan (COZAAR) 100 mg tablet Take 1 tablet by mouth once daily. KLOR-CON M10 10 mEq tablet Take 1 tablet by mouth once daily. furosemide (LASIX) 40 mg tablet Take 1 tablet by mouth twice daily. ferrous sulfate 325 mg (65 mg iron) tablet TWICE DAILY WITH MEALS Insulin [place], Disposable, 31 gauge x 1/4 ndle 5 times daily as directed with meals. COMPOUNDED PRESCRIPTION Rx compression socks. Name of the company- [employer] 20-30 mm compression Natural rubber gripper toe Model # 503 X-short omeprazole (PRILOSEC) 20 mg capsule TAKE ONE CAPSULE BY MOUTH ONCE DAILY Insulin Syringe-Needle U-100 1 mL 31 gauge x 5/16 syrg albuterol HFA (VENTOLIN HFA) 90 mcg/actuation inhaler Inhale 2 Puffs as instructed every 4 hours as needed for Wheezing/Shortness of Breath. carvedilol (COREG) 25 mg tablet Take 1 tablet by mouth twice daily with meals. insulin syringe,safetyneedle 1 mL 31 gauge x 5/16 syrg Use three times daily with regular insulin EASY TOUCH 31 gauge x 3/16 ndle Use with meal-time insulin injections five times daily. aspirin, enteric coated (ASPIR-81) 81 mg EC tablet Take 1 tablet by mouth once daily. FAMILY HISTORY Problem Relation Age of Onset - Cancer Mother Social History Substance Use Topics - Smoking status: Never Smoker - Smokeless tobacco: Former User Quit date: 01/14/2014 - Alcohol use No Objective Physical Exam Constitutional: He is well-developed, well-nourished, and in no distress. HENT: Right Ear: Tympanic membrane, external ear and ear canal normal. Left Ear: Tympanic membrane, external ear and ear canal normal. Nose: Nose normal. No rhinorrhea. Mouth/Throat: Uvula is midline, oropharynx is clear and moist and mucous membranes are normal. No posterior oropharyngeal edema or posterior oropharyngeal erythema. Eyes: Conjunctivae are normal. Right eye exhibits no discharge. Left eye exhibits no discharge. Cardiovascular: Normal rate, regular rhythm and normal heart sounds. Pulmonary/Chest: Effort normal and breath sounds normal. He has no decreased breath sounds. He has no wheezes. He has no rhonchi. He has no rales. Lymphadenopathy: He has no cervical adenopathy. Neurological: He is alert. Skin: Skin is warm and dry. No rash noted. Nursing note and vitals reviewed. ASSESSMENT/PLAN: 1. Viral URI with cough - ICD9: 465.9, ICD10: J06.9, B97.89 - Discussed viral etiology and rationale for treatment. - Symptomatic treatment with prn analgesia - Supportive care with fluids and rest - GUAIFENESIN ER 600 MG TABLET, EXTENDED RELEASE 12 HR - BENZONATATE 100 MG CAPSULE - Follow-up with your PCP in 3-5 days if symptoms have not improved or sooner if symptoms worsen - Discussed red flags and need for immediate medical evaluation if any occur. - Discussed supportive care treatment with fluids, rest and analgesia. - Discussed expected course of illness FLACA Chen APRN.CNP 02/03/2018 11:18 AM Signed ASSESSMENT/PLAN: 1. Viral URI with cough - ICD9: 465.9, ICD10: J06.9, B97.89 - Discussed viral etiology and rationale for treatment. - Symptomatic treatment with prn analgesia - Supportive care with fluids and rest - GUAIFENESIN ER 600 MG TABLET, EXTENDED RELEASE 12 HR - BENZONATATE 100 MG CAPSULE - Follow-up with your PCP in 3-5 days if symptoms have not improved or sooner if symptoms worsen - Discussed red flags and need for immediate medical evaluation if any occur. - Discussed supportive care treatment with fluids, rest and analgesia. - Discussed expected course of illness Mary Garcia APRN.CNP Treatment for Viral Upper Respiratory Tract Infections Your body will kill off the virus by itself. Additionally, you can prime your body's immune system. This may help you get better more quickly. 1. Drink lots of fluids - at least one gallon of non-caffeinated liquids per day 2. Make sure you are eating well 3. Get plenty of rest - at least 8 hours of sleep per night for adults and more for children We do not have any medications that kill off these viruses. Antibiotics are used to treat bacterial infections; however, they are not active against viral infections. There are some things that might help you feel better, though. 1. Vaporizers, humidifiers, hot showers, and hot fluids help open respiratory and sinus passages 2. [place] Nasal [place] may offer relief of nasal and head congestion 3. Jeff's Vapor Rub placed on a hot towel and draped over the head may relieve congestion 4. Tylenol and Advil help control fevers and headaches 5. Salt water gargles help relieve sore throats 6. Chloraceptic spray or throat lozenges may also help relieve sore throat symptoms 7. Mucinex will help loosen up secretions and also provide relief from a cough Occasionally, viral infections turn into something more serious. You should see your doctor or return to the Urgent Care if: 1. You have fevers for longer than five days 2. You have fevers above 102 degrees 3. You are still sick after 10 days 4. You have shortness of breath or wheezing 5. After several days you are getting worse rather than better Referring Provider: SELF [[id number]] Allergies As of Date: 02/03/2018 Noted Allergy Reaction PRAVACHOL (PRAVASTATIN SODIUM) 08/11/2009 5 - Intolerance Comments: Myalgias/arthralgias. Resolved off med. Date Reviewed: 02/03/2018 Reviewed by: Mary ([facility]) Radha - Fully Assessed Reason for Visit: URI [115] Cmt: x 3 days Primary Visit Diagnosis:Viral URI with cough [J06.9, B97.89] Order(s):guaiFENesin (MUCINEX) 600 mg 12 hr tabletTake 2 tablets by mouth twice daily for 10 days.Disp: 40 tabletRfl: 0 benzonatate (TESSALON PERLES) 100 mg capsuleTake 1 capsule by mouth three times daily as needed.Disp: 30 capsuleRfl: 0 Prescriptions as of 02/03/2018 Sig: ATORVASTATIN 40 MG TABLET TAKE ONE TABLET BY MOUTH ONCE* AMLODIPINE 5 MG TABLET 2 tablets once daily. Increas* INSULIN GLARGINE (U-300) CONC* Inject 140 Units subcutaneous* INSULIN LISPRO (U-100) 100 UN* Inject 30-50 Units subcutaneo* LOSARTAN 100 MG TABLET Take 1 tablet by mouth once d* KLOR-CON M10 MEQ TABLET,EXTEN* Take 1 tablet by mouth once d* FUROSEMIDE 40 MG TABLET Take 1 tablet by mouth twice * FERROUS SULFATE 325 MG (65 MG* TWICE DAILY WITH MEALS PEN NEEDLE, DIABETIC 31 GAUGE* 5 times daily as directed wit* COMPOUNDED PRESCRIPTION Rx compression socks. Name of* OMEPRAZOLE 20 MG CAPSULE,ANAI* TAKE ONE CAPSULE BY MOUTH ONC* INSULIN SYRINGE-NEEDLE U-100 * ALBUTEROL SULFATE HFA 90 MCG/* Inhale 2 Puffs as instructed * CARVEDILOL 25 MG TABLET Take 1 tablet by mouth twice * INSULIN SYRINGE WITH SAFETY N* Use three times daily with re* EASY TOUCH 31 GAUGE X 3/16 N* Use with meal-time insulin in* ASPIRIN 81 MG TABLET,DELAYED * Take 1 tablet by mouth once d* GUAIFENESIN ER 600 MG TABLET,* Take 2 tablets by mouth twice* BENZONATATE 100 MG CAPSULE Take 1 capsule by mouth three* Problem List As Of Date 02/03/2018 Noted Resolved Coronary Artery Disease [I25.10] INVALID FOR* s/p Angioplasty with Stent INVALID FOR* Uncontrolled hypertension [I10] INVALID FOR* More... Hyperlipidemia with target LDL less than 70 [E7*INVALID FOR* Diabetes mellitus (HCC) [E11.9] INVALID FOR*10/15/2013 Proteinuria [R80.9] INVALID FOR* More... Uncontrolled type 2 diabetes mellitus with insu*INVALID FOR* Myocardial infarction (HCC) [I21.9] INVALID FOR* Edema [R60.9] INVALID FOR* MELODIE (obstructive sleep apnea) AHI 11 [G47.33] INVALID FOR* Obesity, Class III, BMI 40-49.9 (morbid obesity*INVALID FOR* Acute on chronic congestive heart failure (HCC)*INVALID FOR* Other instructions from your clinician: ASSESSMENT/PLAN: 1. Viral URI with cough - ICD9: 465.9, ICD10: J06.9, B97.89 - Discussed viral etiology and rationale for treatment. - Symptomatic treatment with prn analgesia - Supportive care with fluids and rest - GUAIFENESIN ER 600 MG TABLET, EXTENDED RELEASE 12 HR - BENZONATATE 100 MG CAPSULE - Follow-up with your PCP in 3-5 days if symptoms have not improved or sooner if symptoms worsen - Discussed red flags and need for immediate medical evaluation if any occur. - Discussed supportive care treatment with fluids, rest and analgesia. - Discussed expected course of illness Mary Garcia APRN.[employer] Treatment for Viral Upper Respiratory Tract Infections Your body will kill off the virus by itself. Additionally, you can prime your body's immune system. This may help you get better more quickly. 1. Drink lots of fluids - at least one gallon of non-caffeinated liquids per day 2. Make sure you are eating well 3. Get plenty of rest - at least 8 hours of sleep per night for adults and more for children We do not have any medications that kill off these viruses. Antibiotics are used to treat bacterial infections; however, they are not active against viral infections. There are some things that might help you feel better, though. 1. Vaporizers, humidifiers, hot showers, and hot fluids help open respiratory and sinus passages 2. [place] Nasal [place] may offer relief of nasal and head congestion 3. Jeff's Vapor Rub placed on a hot towel and draped over the head may relieve congestion 4. Tylenol and Advil help control fevers and headaches 5. Salt water gargles help relieve sore throats 6. Chloraceptic spray or throat lozenges may also help relieve sore throat symptoms 7. Mucinex will help loosen up secretions and also provide relief from a cough Occasionally, viral infections turn into something more serious. You should see your doctor or return to the Urgent Care if: 1. You have fevers for longer than five days 2. You have fevers above 102 degrees 3. You are still sick after 10 days 4. You have shortness of breath or wheezing 5. After several days you are getting worse rather than better Prescriptions ordered this encounter Disp Refills Start End GUAIFENESIN ER 600 MG TABLET, EXTEND* 40 t* 0 02/03/2018 02/13/2018 Route: ORAL Sig: Take 2 tablets by mouth twice daily for 10 days. BENZONATATE 100 MG CAPSULE 30 c* 0 02/03/2018 Route: ORAL Sig: Take 1 capsule by mouth three times daily as needed. Encounter Status:Closed by MARY GARCIA on 02/03/18 PROGRESS Observed: 02/03/2018 Status: COMPLETED Source: [place] 10:59 AM [facility] REPOSITORY HNO ID: [id number] Author: Mary (Alex) Radha Service: (none) Author Type: Nurse Practitioner Type: Progress Notes Filed: 02/03/2018 11:18 AM Note Text: Subjective The history is provided by the patient and the spouse. URI He complains of cough, shortness of breath and sputum production. There is no difficulty breathing, hoarse voice or wheezing. This is a new problem. The current episode started in the past 7 days. The problem occurs constantly. The problem has been unchanged. The cough is productive of sputum. Associated symptoms include nasal congestion. Pertinent negatives include no ear pain, fever, headaches or sore throat. Jake Blankenship is a 52 year old male who presents with cough, chest congestion and runny nose. He has been taking nyquil and karen seltzer. Sick contacts include his . Review of Systems Constitutional: Negative. Negative for fever. HENT: Positive for congestion. Negative for ear pain, hoarse voice and sore throat. Respiratory: Positive for cough, sputum production and shortness of breath. Negative for wheezing. Gastrointestinal: Negative. Negative for nausea and vomiting. Neurological: Negative. Negative for dizziness and headaches. BP 130/90 Pulse 67 Temp 36.3 ?C (97.4 ?F) (Left Tympanic) Resp 20 Wt (!) 163.7 kg (360 lb 12.8 oz) SpO2 97% BMI 56.51 kg/m? PAST MEDICAL HISTORY Diagnosis Date - CHF (congestive heart failure) ([facility]) 10/18/2017 - Diabetes ([facility]) - Hypertension - [place] (myocardial infarction) ([facility]) 03-12-09 stent placement - Myocardial infarction ([facility]) 03/16/2014 PAST SURGICAL HISTORY Procedure Laterality Date - CABG (5) VENOUS GRAFTS AND ARTERIAL GRAFT(S) 03/17 - PAST SURGICAL HISTORY OF ORIF LMF with pins - REMOVAL OF TONSILS,<12 Y/O Tonsillectomy ALLERGIES Pravachol [Pravastatin Sodium] MEDICATIONS atorvastatin (LIPITOR) 40 mg tablet TAKE ONE TABLET BY MOUTH ONCE DAILY AT BEDTIME FOR CHOLESTEROL amLODIPine (NORVASC) 5 mg tablet 2 tablets once daily. Increased dose for increased BP at home on 12/29/17 insulin glargine U-300 conc (TOUJEO SOLOSTAR U-300 INSULIN) 300 unit/mL (1.5 mL) inpn Inject 140 Units subcutaneously every morning. 80 units plus 60 units insulin lispro (HUMALOG KWIKPEN) 100 unit/mL inpn Inject 30- 50 Units subcutaneously w MEALS. PATIENT ASSISTANCE - EDITH CARES losartan (COZAAR) 100 mg tablet Take 1 tablet by mouth once daily. KLOR-CON M10 10 mEq tablet Take 1 tablet by mouth once daily. furosemide (LASIX) 40 mg tablet Take 1 tablet by mouth twice daily. ferrous sulfate 325 mg (65 mg iron) tablet TWICE DAILY WITH MEALS Insulin [place], Disposable, 31 gauge x 1/4 ndle 5 times daily as directed with meals. COMPOUNDED PRESCRIPTION Rx compression socks. Name of the company- [employer] 20-30 mm compression Natural rubber gripper toe Model # 503 X-short omeprazole (PRILOSEC) 20 mg capsule TAKE ONE CAPSULE BY MOUTH ONCE DAILY Insulin Syringe-Needle U-100 1 mL 31 gauge x 5/16 syrg albuterol HFA (VENTOLIN HFA) 90 mcg/actuation inhaler Inhale 2 Puffs as instructed every 4 hours as needed for Wheezing/Shortness of Breath. carvedilol (COREG) 25 mg tablet Take 1 tablet by mouth twice daily with meals. insulin syringe,safetyneedle 1 mL 31 gauge x 5/16 syrg Use three times daily with regular insulin EASY TOUCH 31 gauge x 3/16 ndle Use with meal-time insulin injections five times daily. aspirin, enteric coated (ASPIR-81) 81 mg EC tablet Take 1 tablet by mouth once daily. FAMILY HISTORY Problem Relation Age of Onset - Cancer Mother Social History Substance Use Topics - Smoking status: Never Smoker - Smokeless tobacco: Former User Quit date: 01/14/2014 - Alcohol use No Objective Physical Exam Constitutional: He is well-developed, well-nourished, and in no distress. HENT: Right Ear: Tympanic membrane, external ear and ear canal normal. Left Ear: Tympanic membrane, external ear and ear canal normal. Nose: Nose normal. No rhinorrhea. Mouth/Throat: Uvula is midline, oropharynx is clear and moist and mucous membranes are normal. No posterior oropharyngeal edema or posterior oropharyngeal erythema. Eyes: Conjunctivae are normal. Right eye exhibits no discharge. Left eye exhibits no discharge. Cardiovascular: Normal rate, regular rhythm and normal heart sounds. Pulmonary/Chest: Effort normal and breath sounds normal. He has no decreased breath sounds. He has no wheezes. He has no rhonchi. He has no rales. Lymphadenopathy: He has no cervical adenopathy. Neurological: He is alert. Skin: Skin is warm and dry. No rash noted. Nursing note and vitals reviewed. ASSESSMENT/PLAN: 1. Viral URI with cough - ICD9: 465.9, ICD10: J06.9, B97.89 - Discussed viral etiology and rationale for treatment. - Symptomatic treatment with prn analgesia - Supportive care with fluids and rest - GUAIFENESIN ER 600 MG TABLET, EXTENDED RELEASE 12 HR - BENZONATATE 100 MG CAPSULE - Follow-up with your PCP in 3-5 days if symptoms have not improved or sooner if symptoms worsen - Discussed red flags and need for immediate medical evaluation if any occur. - Discussed supportive care treatment with fluids, rest and analgesia. - Discussed expected course of illness Mary Garcia APRN.[employer]TAIN CBC Collected: 02/03/2018 Status: F Source: [place] 9:32 AM [facility] REPOSITORY TYPE CODE TESTS RESULT OUT OF REFERENCE UNITS RANGE LAB WBC 3.70-11.00 k/uL WBC 7.05 LAB RBC 4.20-6.00 m/uL RBC 5.94 LAB HGB 13.0-17.0 g/dL Hemoglobin 16.4 LAB HCT 39.0-51.0 % High Hematocrit 52.3 LAB MCV 80.0-100.0 fL MCV 88.0 LAB MCH 26.0-34.0 pG MCH 27.6 LAB MCHC 30.5-36.0 g/dL MCHC 31.4 LAB RDWCV 11.5-15.0 % RDW-CV High 15.4 LAB PLTCT 150-400 k/uL Platelet Count 210 LAB MPV 9.0-12.7 fL MPV 10.4 LAB ABSNUC <0.01 k/uL Absolute nRBC <0.01 Performed By: #### CBC, BMP, C3COMP, C4COMP, HFP, HBA1C, HREMOP, ANAIFS, CRYOQT #### [facility] [address] [place], [place] [address] BASIC METABOLIC PANL Collected: 02/03/2018 Status: F Source: [place] 9:32 AM [facility] REPOSITORY TYPE CODE TESTS RESULT OUT OF REFERENCE UNITS RANGE LAB GLU 74-99 mg/dL High Glucose 141 Result Comment: The [place] Diabetes Association (ADA) provides guidance for cutoff values for fasting glucose and random glucose. The ADA defines fasting as no caloric intake for at least 8 hours. Fas ting plasma glucose results between 100 to 125 mg/dL indicate increased risk for diabetes (prediabetes). Fasting plasma glucose results greater than or equal to 126 mg/dL meet the criteria for diagnosis of diabetes. In the absence of unequivocal hyperglycemia, results should be confirmed by repeat testing. In a patient with classic symptoms of hyperglycemia or hyperglycemic crisis, random plasma glucose results greater than or equal to 200 mg/dL meet the criteria for diagnosis of diabetes. Reference: Standards of Medical Care in Diabetes 2016, [place] Diabetes Association. Diabetes Care. 2016.39(Suppl 1). LAB BUN 9-24 mg/dL BUN 23 LAB CRET 0.73-1.22 mg/dL Creatinine High 1.57 LAB NA 136-144 mmol/L Sodium 139 LAB K 3.7-5.1 mmol/L Potassium 4.0 LAB CL 97-105 mmol/L Chloride 104 LAB CO2 22-30 mmol/L Low CO2 21 LAB AGAP 9-18 mmol/L Anion Gap 14 LAB CA 8.5-10.2 mg/dL Calcium, Total 8.9 LAB GFRAA eGFR- Amer. 56 LAB GFRNAA . eGFR-All Other Races 46 Result Comment: eGFR (Estimated GFR) Units of measure: mL/min/1.73 meters squared eGFR is derived from the reexpressed MDRD Study equation using the following parameters: serum creatinine, age, gender and race. The creatinine assay has been calibrated to be traceable to IDMS. An eGFR <60 mL/min/1.73m2 for >3 months is consistent with chronic kidney disease. Refer to KDOQI guidelines for clinical interpretation. In patients with unstable renal function, e.g. those with acute kidney injury, the eGFR may not accurately reflect actual GFR. Performed By: #### CBC, BMP, C3COMP, C4COMP, HFP, HBA1C, HREMOP, ANAIFS, CRYOQT #### [facility] [address] [place] [place], [place] [address] C3 COMPLEMENT Collected: 02/03/2018 Status: F Source: [place] 9:32 AM [facility] REPOSITORY TYPE CODE TESTS RESULT OUT OF REFERENCE UNITS RANGE LAB C3COMP 86-166 mg/dL C3 High Complement 200 Performed By: #### CBC, BMP, C3COMP, C4COMP, HFP, HBA1C, HREMOP, ANAIFS, CRYOQT #### [place] [address] [place], [place] [address] C4 COMPLEMENT Collected: 02/03/2018 Status: F Source: [place] 9:32 AM [facility] REPOSITORY TYPE CODE TESTS RESULT OUT OF REFERENCE UNITS RANGE LAB C4COMP 13-46 mg/dL C4 Complement 40 Performed By: #### CBC, BMP, C3COMP, C4COMP, HFP, HBA1C, HREMOP, ANAIFS, CRYOQT #### [place] [address] [place], [place] [address] HEPATIC FUNCTN PANEL Collected: 02/03/2018 Status: F Source: [place] 9:32 AM [facility] REPOSITORY TYPE CODE TESTS RESULT OUT OF REFERENCE UNITS RANGE LAB ALB 3.9-4.9 g/dL Low Albumin 2.8 LAB TBIL 0.2-1.3 mg/dL Bilirubin, Total 0.3 LAB CBIL <0.2 mg/dL Bilirubin,Conjuga <0.2 charlie LAB ALKP 38-113 U/L Alkaline Phosphatase 94 LAB AST 14-40 U/L AST 27 LAB ALT 10-54 U/L ALT 24 LAB TP 6.3-8.0 g/dL Protein, Total 6.7 Performed By: #### CBC, BMP, C3COMP, C4COMP, HFP, HBA1C, HREMOP, ANAIFS, CRYOQT #### [facility] [address] [place], [place] [address] HEMOGLOBIN A1C Collected: 02/03/2018 Status: F Source: [place] 9:32 AM [facility] REPOSITORY TYPE CODE TESTS RESULT OUT OF REFERENCE UNITS RANGE LAB HGBA1C 4.3-5.6 % High Hemoglobin A1c 7.7 LAB HBA0 mg/dL Est. Average Glucose 174 Result Comment: eAG: (Estimated average glucose) is a calculated value from HgbA1c and is insurance service representative of the average blood glucose level in the last 2-3 month period. Performed By: #### CBC, BMP, C3COMP, C4COMP, HFP, HBA1C, HREMOP, ANAIFS, CRYOQT #### [facility] [address] [place] [address] HEPATITIS REMOTE PANEL Collected: 02/03/2018 Status: F Source: [place] 9:32 [facility] REPOSITORY TYPE CODE TESTS RESULT OUT OF REFERENCE UNITS RANGE LAB AHBCOT Negative Hep B Core Ab,Total Negative LAB AHCV Negative Hepatitis C Ab Negative IA LAB HBSAGR Negative HBsAg Negative LAB AHBSAG Negative HepB Surface Ab,Qual Negative Result Comment: NEGATIVE Performed By: #### CBC, BMP, C3COMP, C4COMP, HFP, HBA1C, HREMOP, ANAIFS, CRYOQT #### [place] [address] KALI BY IFA Collected: 02/03/2018 Status: F Source: [place] 9:32 [facility] REPOSITORY TYPE CODE TESTS RESULT OUT OF REFERENCE UNITS RANGE LAB ANASC Negative KALI Negative Result Comment: Normal range : negative at <1:80 serum dilution. Approximately 6% of patients with connective tissue diseases with low positive EIA values are negative by IFA. Recommend follow-up with specific antinuclear antibodies if clinically indicated. LAB BHARAT Negative Negative KALI Titer Result Comment: Normal range : negative at <1:80 serum dilution. LAB ANAP KALI Not applicable Pattern for negative result. Performed By: #### CBC, BMP, C3COMP, C4COMP, HFP, HBA1C, HREMOP, ANAIFS, CRYOQT #### [facility] [place] [address] CRYOGLOBULIN Collected: 02/03/2018 Status: F Source: [place] 9:32 [facility] REPOSITORY TYPE CODE TESTS RESULT OUT OF REFERENCE UNITS RANGE LAB CRYOQ 0-50 ug/mL Cryoglobulin 17 Result Comment: This test was developed and its performance characteristics determined by [facility] [place] ([facility]). It has not been cleared or approved by the FDA. [facility] is regulated under CLIA as qualified to perform high-complexity testing. This test is used for clinical purposes. It should not be regarded as investigational or for research. Performed By: #### CBC, BMP, C3COMP, C4COMP, HFP, HBA1C, HREMOP, ANAIFS, CRYOQT #### [facility] [address] [place] [id number] PROGRESS Observed: 01/24/2018 Status: COMPLETED Source: [place] 4:31 PM [facility] REPOSITORY HNO ID: [id number] Author: Lani Simpson Service: (none) Author Type: Registered Nurse Type: Progress Notes Filed: 02/23/2018 3:01 AM Note Text: PRIMARY CARE COORDINATION FOLLOW-UP NOTE Provider Action/FYI Finally reached pt to get additional labs. He has not heard from Dr. Raymundo's office. He will get labs Fri AM. Pls file BMP- will repeat. Patient identified by name and date of . YES Spoke to patient Summary: Attempted to call pt. He apparently has not obtained lab wk yet and needs to do so BETH. Unable to reach him. Finally reached pt. He will get labs done Fri AM. Will fax to Dr Sanchez and . He is currently taking total of 120mg Lasix daily and still has gained additional 4 #. Concerns: Will reach out to Leon after labs done. Vineyard Tender plan for next outreach: Will follow up Sat. 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 He has not heard from Dr. Raymundo's office. He will get labs Fri AM. Pls file BMP- will repeat. Patient identified by name and date of . YES Spoke to patient Summary: Attempted to call pt. He apparently has not obtained lab wk yet and needs to do so BETH. Unable to reach him. Finally reached pt. He will get labs done Fri AM. Will fax to Dr Sanchez and . He is currently taking total of 120mg Lasix daily and still has gained additional 4 #. Concerns: Will reach out to Leon after labs done. Vineyard Tender plan for next outreach: Will follow up Sat. Signature Lani Simpson RN Ambulatory Equipment Service Lead Internal Medicine [facility] January 24, 2018 Allergies As of Date: 01/23/2018 Noted Allergy Reaction PRAVACHOL (PRAVASTATIN SODIUM) 08/11/2009 5 - Intolerance Comments: Myalgias/arthralgias. Resolved off med. Date Reviewed: 01/17/2018 Reviewed by: Dominga Stauffer LPN - Fully Assessed Reason for Visit: Equipment Service Lead Chronic Care [0442] Primary Visit Diagnosis:Uncontrolled type 2 diabetes mellitus with insulin therapy (HCC) [E11.65, Z79.4] Other Visit Diagnosis:Edema, unspecified type [R60.9] Order(s):BASIC METABOLIC PNL [SQBMP] Order #: [id number] FUTURE Prescriptions as of 01/23/2018 Sig: ATORVASTATIN 40 MG TABLET TAKE ONE TABLET BY MOUTH ONCE* X AMLODIPINE 5 MG TABLET 2 tablets once daily. Increas* INSULIN LISPRO (U-100) 100 UN* Inject 30-50 Units subcutaneo* X INSULIN GLARGINE (U-300) CONC* Inject 140 Units subcutaneous* LOSARTAN 100 MG TABLET Take 1 tablet by mouth once d* KLOR-CON M10 MEQ TABLET,EXTEN* Take 1 tablet by mouth once d* FERROUS SULFATE 325 MG (65 MG* TWICE DAILY WITH MEALS X FUROSEMIDE 40 MG TABLET Take 1 tablet by mouth twice * X PEN NEEDLE, DIABETIC 31 GAUGE* 5 times daily as directed wit* COMPOUNDED PRESCRIPTION Rx compression socks. Name of* OMEPRAZOLE 20 MG CAPSULE,ANAI* TAKE ONE CAPSULE BY MOUTH ONC* X INSULIN SYRINGE U-100 WITH NE* ALBUTEROL SULFATE HFA 90 MCG/* Inhale 2 Puffs as instructed * CARVEDILOL 25 MG TABLET Take 1 tablet by mouth twice * X INSULIN SYRINGE WITH SAFETY N* Use three times daily with re* X EASY TOUCH 31 GAUGE X 06/17 N* Use with meal-time insulin in* ASPIRIN 81 MG TABLET,DELAYED * Take 1 tablet by mouth once d* Problem List As Of Date 01/23/2018 Noted Resolved Coronary Artery Disease [I25.10] INVALID FOR* s/p Angioplasty with Stent INVALID FOR* Uncontrolled hypertension [I10] INVALID FOR* More... Hyperlipidemia with target LDL less than 70 [E7*INVALID FOR* Diabetes mellitus (HCC) [E11.9] INVALID FOR*10/15/2013 Proteinuria [R80.9] INVALID FOR* More... Uncontrolled type 2 diabetes mellitus with insu*INVALID FOR* Myocardial infarction (HCC) [I21.9] INVALID FOR* Edema [R60.9] INVALID FOR* MELODIE (obstructive sleep apnea) AHI 11 [G47.33] INVALID FOR* Obesity, Class III, BMI 40-49.9 (morbid obesity*INVALID FOR* Acute on chronic congestive heart failure (HCC)*INVALID FOR* Encounter Status:Closed by Hobby, KAROLINEUSER on 02/23/18 PROGRESS Observed: 01/20/2018 Status: COMPLETED Source: [place] 12:14 PM [facility] [place] REPOSITORY [facility] ID: [id number] Author: Lani Santos [facility] Service: (none) Author Type: Registered Nurse Type: Progress Notes Filed: 01/20/2018 1:36 PM Note Text: PRIMARY CARE COORDINATION FOLLOW-UP NOTE Provider Action/FYI: Pt getting US DVT and labs this afternoon. Check for results tomorrow. Referral made to Dr. Raymundo, Nephrology [facility]. Patient identified by name and date of . YES Spoke to [facility]- they scheduled pt for this afternoon and called him. They will also have him get labs Summary: Dr Cisneros asked me to call this pt regarding his labs and need to see Nephrology beth. I am scheduling his DVT US for beth and will have him come in for labs today if possible. Concerns: Pt is scheduled for DVT US this afternoon as well as labs. Referral made to Dr Raymundo. They will contact pt next week. Vineyard Tender plan for next outreach: Will follow up with results tomorrow. Signature Lani Simpson RN Ambulatory Equipment Service Lead Internal Medicine [facility] January 20, 2018 THEODORE Observed: 01/20/2018 Status: COMPLETED Source: [place] 12:00 AM [facility] REPOSITORY Patient Outreach (INTMWS) JAKE BLANKENSHIP ([id number]) 1965 M Date Time Provider Department 01/20/18 LANI MERIDA During your visit today, we recorded the following information about you: Lani Santos RN 01/20/2018 1:36 PM Signed PRIMARY CARE COORDINATION FOLLOW-UP NOTE Provider Action/FYI: Pt getting US DVT and labs this afternoon. Check for results tomorrow. Referral made to Dr. Raymundo, Nephrology [facility]. Patient identified by name and date of . YES Spoke to [facility]- they scheduled pt for this afternoon and called him. They will also have him get labs Summary: Dr Cisneros asked me to call this pt regarding his labs and need to see Nephrology beth. I am scheduling his DVT US for beth and will have him come in for labs today if possible. Concerns: Pt is scheduled for DVT US this afternoon as well as labs. Referral made to Dr Raymundo. They will contact pt next week. Vineyard Tender plan for next outreach: Will follow up with results tomorrow. Signature Lani Simpson RN Ambulatory Equipment Service Lead Internal Medicine [facility] January 20, 2018 Allergies As of Date: 01/20/2018 Noted Allergy Reaction PRAVACHOL (PRAVASTATIN SODIUM) 08/11/2009 5 - Intolerance Comments: Myalgias/arthralgias. Resolved off med. Date Reviewed: 01/17/2018 Reviewed by: Dominga Stauffer LPN - Fully Assessed Reason for Visit: Equipment Service Lead Chronic Care [3618] Prescriptions as of 01/20/2018 Sig: ATORVASTATIN 40 MG TABLET TAKE ONE TABLET BY MOUTH ONCE* AMLODIPINE 5 MG TABLET 2 tablets once daily. Increas* INSULIN GLARGINE (U-300) CONC* Inject 140 Units subcutaneous* INSULIN LISPRO (U-100) 100 UN* Inject 30-50 Units subcutaneo* LOSARTAN 100 MG TABLET Take 1 tablet by mouth once d* KLOR-CON M10 MEQ TABLET,EXTEN* Take 1 tablet by mouth once d* FUROSEMIDE 40 MG TABLET Take 1 tablet by mouth twice * FERROUS SULFATE 325 MG (65 MG* TWICE DAILY WITH MEALS PEN NEEDLE, DIABETIC 31 GAUGE* 5 times daily as directed wit* COMPOUNDED PRESCRIPTION Rx compression socks. Name of* OMEPRAZOLE 20 MG CAPSULE,ANAI* TAKE ONE CAPSULE BY MOUTH ONC* INSULIN SYRINGE-NEEDLE U-100 * ALBUTEROL SULFATE HFA 90 MCG/* Inhale 2 Puffs as instructed * CARVEDILOL 25 MG TABLET Take 1 tablet by mouth twice * INSULIN SYRINGE WITH SAFETY N* Use three times daily with re* EASY TOUCH 31 GAUGE X 3/16 N* Use with meal-time insulin in* ASPIRIN 81 MG TABLET,DELAYED * Take 1 tablet by mouth once d* Problem List As Of Date 01/20/2018 Noted Resolved Coronary Artery Disease [I25.10] INVALID FOR* s/p Angioplasty with Stent INVALID FOR* Uncontrolled hypertension [I10] INVALID FOR* More... Hyperlipidemia with target LDL less than 70 [E7*INVALID FOR* Diabetes mellitus (HCC) [E11.9] INVALID FOR*10/15/2013 Proteinuria [R80.9] INVALID FOR* More... Uncontrolled type 2 diabetes mellitus with insu*INVALID FOR* Myocardial infarction (HCC) [I21.9] INVALID FOR* Edema [R60.9] INVALID FOR* MELODIE (obstructive sleep apnea) AHI 11 [G47.33] INVALID FOR* Obesity, Class III, BMI 40-49.9 (morbid obesity*INVALID FOR* Acute on chronic congestive heart failure (HCC)*INVALID FOR* Encounter Status:Closed by LANI SIMPSON on 01/20/18 D DIMER Collected: 01/17/2018 Status: F Source: [place] 10:14 AM [facility] REPOSITORY TYPE CODE TESTS RESULT OUT OF REFERENCE UNITS RANGE LAB DDMER <500 ng/mL FEU High D dimer 850 Result Comment: The D-dimer assay can be used to exclude pulmonary embolism (PE) and deep vein thrombosis (DVT) in conjunction with a low pre-test probability. For patients with a suspected DVT, a D Dimer level below 500 ng/mL FEU has a negative predictive value of >=99.0%, a sensitivity of >=97.0%, and a specificity of >=35.8%. For patients with a blake spected PE, a D Dimer level below 500 ng/mL FEU has a negative predictive value of >=98.6%, a sensitivity of >=96.6%, and a specificity of >=38.9%. Performed By: #### DDMER, CBCDIF, TSH, HBA1C, COR #### [facility] [address] [place], [place] [address] CBC AND DIFFERENTIAL Collected: 01/17/2018 Status: F Source: [place] 10:14 AM [facility] REPOSITORY TYPE CODE TESTS RESULT OUT OF REFERENCE UNITS RANGE LAB WBC 3.70-11.00 k/uL WBC 6.43 LAB RBC 4.20-6.00 m/uL RBC High 6.12 LAB HGB 13.0-17.0 g/dL Hemoglobin 16.9 LAB HCT 39.0-51.0 % High Hematocrit 54.2 LAB MCV 80.0-100.0 fL MCV 88.6 LAB MCH 26.0-34.0 pG MCH 27.6 LAB MCHC 30.5-36.0 g/dL MCHC 31.2 LAB RDWCV 11.5-15.0 % RDW-CV High 16.6 LAB PLTCT 150-400 k/uL Platelet Count 243 LAB MPV 9.0-12.7 fL MPV 10.4 LAB ANEUT % Neut% 53.8 LAB AANEUT 1.45-7.50 k/uL Abs Neut 3.46 LAB ALYMP % Lymph% 34.4 LAB AALYMP 1.00-4.00 k/uL Abs Lymph 2.21 LAB AMONO % Isabella% 7.9 LAB AAMONO <0.87 k/uL Abs Isabella 0.51 LAB AEOS % Eosin% 3.0 LAB AAEOS <0.46 k/uL Abs Eosin 0.19 LAB ABASO % Baso% 0.9 LAB AABASO <0.11 k/uL Abs Baso 0.06 LAB AUNRBC 0 /100 WBC NRBCs 0.0 LAB ABNRBC <0.01 k/uL Absolute nRBC <0.01 LAB DTYP DTYPE Auto Diff Performed By: #### DDMER, CBCDIF, TSH, HBA1C, COR #### [place] [address] TSH Collected: 01/17/2018 Status: F Source: [place] 10:14 AM [facility] REPOSITORY TYPE CODE TESTS RESULT OUT OF RANGE REFERENCE UNITS LAB TSH 0.400-5.500 uU/mL TSH 2.950 Performed By: #### DDMER, CBCDIF, TSH, HBA1C, COR #### [facility] [address] [place] [address] HEMOGLOBIN A1C Collected: 01/17/2018 Status: F Source: [place] 10:14 AM [facility] REPOSITORY TYPE CODE TESTS RESULT OUT OF REFERENCE UNITS RANGE LAB HGBA1C 4.3-5.6 % High Hemoglobin A1c 7.4 LAB HBA0 mg/dL Est. Average Glucose 166 Result Comment: eAG: (Estimated average glucose) is a calculated value from HgbA1c and is insurance service representative of the average blood glucose level in the last 2-3 month period. Performed By: #### DDMER, CBCDIF, TSH, HBA1C, COR #### [facility] [address] [place] [address] CORTISOL Collected: 01/17/2018 Status: F Source: [place] 10:14 AM [facility] REPOSITORY TYPE CODE TESTS RESULT OUT OF REFERENCE UNITS RANGE LAB COR ug/dL Cortisol 10.9 Result Comment: Cortisol Reference Range: AM = 5.3-22.5, PM = 3.4-16.8 Performed By: #### DDMER, CBCDIF, TSH, HBA1C, COR #### [facility] [address] [place], [place] [address] URINALYSIS WITH Collected: 01/17/2018 Status: F Source: [place] MICROSCOPIC 10:14 AM [facility] REPOSITORY TYPE CODE TESTS RESULT OUT OF RANGE REFERENCE UNITS LAB UCOL Yellow Color Yellow LAB [facility] Clear Clarity Clear LAB UGLUC Negative mg/dL Glucose, Abnormal Urine 50 Alert LAB UBIL Negative Bilirubin, Urine Negative LAB UKET Negative Ketones, Urine Negative LAB USPG 1.005-1.030 Specific Harris, Ur 1.012 LAB UHGB Negative Abnormal Hemoglobin/Blood, 1+ Alert Ur LAB UPH 4.5-8.0 pH 6.0 LAB UPROT Negative mg/dL Protein, Abnormal Urine >=300 Alert LAB UUROB Normal Urobilinogen Normal LAB UNITR Negative Nitrites Negative LAB ULKEST Negative Leukest Negative LAB UCOM Comments SEE COMMENT Result Comment: N/A LAB UMCOM Urine SEE Sherman Comment COMMENT Result Comment: Rechecked by light microscopy. LAB UWBC 0-5 /HPF WBC 0-5 LAB URBC 0-3 /HPF Abnormal Alert RBC 3-5 LAB UCAST 0 /LPF Abnormal Alert Cast SEE COMMENT Result Comment: 4-10 Hyaline Cast Performed By: #### UAWMIC #### [place] [address] BASIC METABOLIC PANL Collected: 01/17/2018 Status: F Source: [place] 10:14 AM [facility] REPOSITORY TYPE CODE TESTS RESULT OUT OF REFERENCE UNITS RANGE LAB GLU 74-99 mg/dL High Glucose 106 Result Comment: The [place] Diabetes [employer] (ADA) provides guidance for cutoff values for fasting glucose and random glucose. The ADA defines fasting as no caloric intake for at least 8 hours. Fas ting plasma glucose results between 100 to 125 mg/dL indicate increased risk for diabetes (prediabetes). Fasting plasma glucose results greater than or equal to 126 mg/dL meet the criteria for diagnosis of diabetes. In the absence of unequivocal hyperglycemia, results should be confirmed by repeat testing. In a patient with classic symptoms of hyperglycemia or hyperglycemic crisis, random plasma glucose results greater than or equal to 200 mg/dL meet the criteria for diagnosis of diabetes. Reference: Standards of Medical Care in Diabetes 2016, [place] [employer]. Diabetes Care. 2016.39(Suppl 1). LAB BUN 9-24 mg/dL BUN 24 LAB CRET 0.73-1.22 mg/dL Creatinine High 1.56 LAB NA 136-144 mmol/L Sodium 142 LAB K 3.7-5.1 mmol/L Potassium 4.5 LAB CL 97-105 mmol/L Chloride High 109 LAB CO2 22-30 mmol/L Low CO2 17 LAB AGAP 9-18 mmol/L Anion Gap 16 LAB CA 8.5-10.2 mg/dL Calcium, Total 9.6 LAB GFRAA eGFR- Amer. 56 LAB GFRNAA . eGFR-All Other Races 47 Result Comment: eGFR (Estimated GFR) Units of measure: mL/min/1.73 meters squared eGFR is derived from the reexpressed MDRD Study equation using the following parameters: serum creatinine, age, gender and race. The creatinine assay has been calibrated to be traceable to IDMS. An eGFR <60 mL/min/1.73m2 for >3 months is consistent with chronic kidney disease. Refer to KDOQI guidelines for clinical interpretation. In patients with unstable renal function, e.g. those with acute kidney injury, the eGFR may not accurately reflect actual GFR. Performed By: #### BMP #### [facility] [address] [place], [place] [address] XR CHEST 2V FRONTAL/LAT Observed: 01/17/2018 Status: F Source: [place] 9:57 AM [facility] REPOSITORY * * *Final Report* * * DATE OF EXAM: Jan 17 2018 9:57AM WOX [id number] - XR CHEST 2V FRONTAL/LAT / PROCEDURE REASON: SOB (shortness of breath) * * * * Physician Interpretation * * * * EXAMINATION: CHEST RADIOGRAPH (2 VIEW FRONTAL and LATERAL) CLINICAL HISTORY: SOB (shortness of breath) MQ: XC2_5 Comparison: 08/10/2016 RESULT: Lines, tubes, and devices: None. Lungs and pleura: No convincing acute consolidation. Mild opacity in the left midlung field is similar to prior exam and is thought to represent scarring and/or atelectasis. No pleural effusion or pneumothorax. Cardiomediastinal silhouette: Stable. Sternotomy wires. Other: No acute osseous abnormality is identified. Degenerative changes are present in the thoracic spine. IMPRESSION: No acute radiographic abnormality is evident. Time Buyer: SLIME Transcribe Date/Time: Jan 17 2018 10:04A Dictated by : SHIRLEY LERMA MD This examination was interpreted and the report reviewed and electronically signed by: SHIRLEY LERMA MD on Jan 17 2018 10:05AM EST [id number] PROGRESS Observed: 01/17/2018 Status: COMPLETED Source: [place] 9:51 AM [facility] REPOSITORY HNO ID: [id number] Author: Natali Bach (Rt) Herlinda Horvath Service: (none) Author Type: Lodge Officer Type: Progress Notes Filed: 01/17/2018 9:57 AM Note Text: Radiology Service Progress Note PATIENT NAME: Jake Blankenship DATE OF SERVICE: January 17, 2018 TIME: 9:51 AM PATIENT IDENTITY VERIFICATION COMPLETED USING TWO (2) METHODS: Patient confirmed name verbally and Date of . PATIENT GENDER DATA: Male PATIENT RELEVANT IMPLANT DATA REVIEWED: Not Applicable RADIOLOGY DEPARTMENT: General X-ray: Exam(s) Completed: Chest X-Ray PERIPHERAL IV DATA: Not applicable SIGNED BY: RT Thelma January 17, 2018 9:51 AM PROGRESS Observed: 01/17/2018 Status: COMPLETED Source: [place] 9:20 AM [facility] REPOSITORY HNO ID: [id number] Author: Leida Cisneros Service: (none) Author Type: Physician Type: Progress Notes Filed: 01/17/2018 5:27 PM Note Text: Reason for Visit Patient presents with: Established Patient: 2 month follow up- DM, HTN,CHF Imm/Inj: Flu Vaccine Jake Blankenship is a 52 year old male who presents here today for Above Complaints.. Health Maintenance BP CONTROLLED (<130/80) DTAP,TDAP,TD(6 - Tdap) COLORECTAL CANCER SCREENING,SEE MODIFIER DILATED RETINAL EXAM INFLUENZA(1) LDL CHOLESTEROL HPI He has gained 40 pounds in the past 3 months, he went to see the needle process felt goods supervisor. Who put him on the lasix 80 mgs, 2 times a day for a few days and went back to 40 mgs 2 times a day, he has not lost any weight since then. He leaks mana protein in his urine. Booth Operator did a stress test on him that was not significant. He is limited with what he Is doing, currently, he cannot walk for more than 200 feet with out feeling sob. This is very new. No chest pain. No pain in the legs. He is not drinking more than 2 litres of water in a day. Seems like his peeing is more than normal.he is drinking a couple cans of diet pop at the most. Has some orthopnea and PND Noted that his albumin for dr bray office labs was only 2.4 He has been using his sleep machine daily he notes His sugars are well controlled with the insulin. No problem-specific Assessment AND Plan notes found for this encounter. PAST MEDICAL HISTORY Diagnosis Date - CHF (congestive heart failure) ([facility]) 10/18/2017 - Diabetes ([facility]) - Hypertension - WI (myocardial infarction) ([facility]) 03-12-09 stent placement - Myocardial infarction ([facility]) 03/16/2014 PAST SURGICAL HISTORY Procedure Laterality Date - CABG (5) VENOUS GRAFTS AND ARTERIAL GRAFT(S) 03/17 - PAST SURGICAL HISTORY OF ORIF LMF with pins - REMOVAL OF TONSILS,<12 Y/O Tonsillectomy FAMILY HISTORY Problem Relation Age of Onset - Cancer Mother Social History Substance Use Topics - Smoking status: Never Smoker - Smokeless tobacco: Former User Quit date: 01/14/2014 - Alcohol use No Past medical history, appointments, medications, allergies reviewed. Pertinent Lab/Diagnostic Studies are reviewed and discussed today Current Outpatient Prescriptions: - atorvastatin (LIPITOR) 40 mg tablet - amLODIPine (NORVASC) 5 mg tablet - insulin glargine U-300 conc (TOUJEO SOLOSTAR U-300 INSULIN) 300 unit/mL (1.5 mL) inpn - insulin lispro (HUMALOG KWIKPEN) 100 unit/mL inpn - losartan (COZAAR) 100 mg tablet - KLOR-CON M10 10 mEq tablet - furosemide (LASIX) 40 mg tablet - ferrous sulfate 325 mg (65 mg iron) tablet - omeprazole (PRILOSEC) 20 mg capsule - carvedilol (COREG) 25 mg tablet - aspirin, enteric coated (ASPIR-81) 81 mg EC tablet - Insulin [place], Disposable, 31 gauge x 1/4 ndle - COMPOUNDED PRESCRIPTION - Insulin Syringe-Needle U-100 1 mL 31 gauge x 5/16 syrg - albuterol HFA (VENTOLIN HFA) 90 mcg/actuation inhaler - insulin syringe,safetyneedle 1 mL 31 gauge x 5/16 syrg - EASY TOUCH 31 gauge x 3/16 ndle Review of Systems CONSTITUTIONAL: No fevers, chills night sweats, unintended weight loss CARDIOVASCULAR: No chest pain, dyspnea, palpitations, orthopnea, PND, ankle edema. PULM: No dyspnea, unexplained cough. GI: No dysphagia/odynophagia, problematic reflux, constipation, diarrhea, changes in stool habits, hematochezia, melena. : No new urinary complaints, including dysuria, gross hematuria or pyuria. NEURO: No new balance problems, peripheral weakness/paresthesias or numbness of concern. Physical Exam BP 146/82 Pulse 67 Resp 16 Ht 170.2 cm (5' 7) Wt (!) 160.6 kg (354 lb) SpO2 96% BMI 55.44 kg/m? General appearance: appears more swollen and flushed in the face, seems bloated all over the face alert, in no acute distress, well nourished. Skin: Skin color, texture, turgor normal, no suspicious rashes or lesions Head: Normocephalic, no masses, lesions, tenderness or abnormalities Eyes: Anicteric sclera. Pupils are equally round and reactive to light. Extraocular movements are intact. Ears: External ears normal, canals clear Oropharynx: Lips, mucosa, and tongue normal, teeth and gums normal, oropharynx normal Neck: Supple, no adenopathy; thyroid symmetric, normal size, no bruits Back:deferred Lungs: Lungs clear to auscultation. No wheezing, rhonchi, rales Heart: RRR without murmur, gallop, or rubs. No ectopy Abdomen: Normal abdominal exam, Abdomen soft, non-tender. Bowel sounds normal. No masses, organomegaly Extremities: No deformities, edema 2+, skin discoloration, clubbing or cyanosis. Good capillary refill. Musculoskeletal: No joint swelling, deformity, or tenderness Peripheral pulses: Normal Neuro: Gait normal. Reflexes normal and symmetric. Sensation grossly intact. ASSESSMENT/PLAN: 1. Hypoalbuminemia - ICD9: 273.8, ICD10: E88.09 (primary diagnosis) With his hypoalbuminemia he could be having nephrotic syndrome. Discussed this with the patient. Will get him care coordination. 2. Need for vaccination - ICD9: V05.9, ICD10: Z23 - INFLUENZA VACCINE QUADRIVALENT AGE 3 YRS PLUS + IM 3. Uncontrolled hypertension - ICD9: 401.9, ICD10: I10 - good control - Recommended regular aerobic exercise. - Recommend home blood pressure monitoring, to bring results in on next visit - Goal of BP <130/80 4. Uncontrolled type 2 diabetes mellitus with insulin therapy (HCC) - ICD9: 250.02, V58.67, ICD10: E11.65, Z79.4 Controlled. - Continue current medications - HGB A1C 5. Hyperlipidemia with target LDL less than 70 - ICD9: 272.4, ICD10: E78.5 Cont medication 6. Proteinuria, unspecified type - ICD9: 791.0, ICD10: R80.9 Very concerning. 7. Weight gain - ICD9: 783.1, ICD10: R63.5 Very very concerning 8. Acute on chronic congestive heart failure, unspecified heart failure type (HCC) - ICD9: 428.0, ICD10: I50.9 Discussed with thomas 9. Anasarca - ICD9: 782.3, ICD10: R60.1 - URINALYSIS WITH MICROSCOPIC - COMP METABOLIC PANEL - CBC + DIFF - HGB A1C - TSH BLD - CORTISOL BLD 10. SOB (shortness of breath) - ICD9: 786.05, ICD10: R06.02 - XR CHEST 2V FRONTAL/LAT - D-DIMER Spent more than 40 mins with the patient LEIDA CISNEROS MD PROGRESS Observed: 01/17/2018 Status: COMPLETED Source: [place] 9:05 AM [facility] [place] REPOSITORY O ID: [id number] Author: Dominga Stauffer LPN Service: (none) Author Type: (none) Type: Progress Notes Filed: 01/17/2018 5:27 PM Note Text: 52 year old male here for INACTIVATED INFLUENZA VACCINE. [id number] Season Patient is identified by name and date of : Yes [] CONTRAINDICATIONS color enhanced section Age less than 6 months? No Allergy to eggs, chicken, chicken feathers, or chicken dander? No Allergy to thimerosal (a preservative) or formaldehyde, gelatin? No History of severe reaction to any vaccine component or a previous dose of influenza vaccination? No History of Guillain-Stovall Syndrome within 6 weeks after a previous influenza vaccine? No Patient is not moderately or severely ill? No Current temperature greater or equal to 100.4F? No History of Bone Marrow Transplant prior 6 months or solid organ transplant in the past 3 months ? No History of fainting after a prior injection or medical procedure? No- ? If patient has fainted in the past, the CDC recommends sitting or lying down for 15 minutes after the vaccination. [] VERIFICATION color enhanced section Was the answer Yes for any of the above contraindications? No contraindications present. Acceptable to proceed with vaccine. Patient/guardian agrees the above answers are true to the best of their knowledge? Yes Flu vaccine information sheet given? Yes See immunization activity in [facility] for details of immunizations adminstered today. Patient age: [age] year old For The 6236-4348 Flu Season 6-35 months old: Fluzone 0.25 ml - IM (Preservative Free) 3 years of age: Fluzone 0.5 ml - IM (Preservative Free) 3 years and older: Fluzone 0.5 ml- IM-(with Preservatives) 65+ years old: 2-49 years old Fluzone High-Dose 0.5 ml - IM (Preservative Free) FLUMIST- intranasal REMEMBER: If patient is less than 9 years of age and this is the first vaccine of Influenza to be received in any flu season, they should receive a second dose in one months time. CNOV Observed: 01/17/2018 Status: COMPLETED Source: [place] 9:00 AM [facility] REPOSITORY Office Visit (INTMWS) GELACIOJAKE Pruett ([id number]) 1965 M Date Time Provider Department 01/17/18 9:00 AM LEIDA CISNEROS During your visit today, we recorded the following information about you: Pulse Respiration Blood pressure Weight 67/minute 16/minute 146/82 160.6 kg Height 1.702 m Dominga Stauffer ANAT 01/17/2018 5:27 PM Signed 52 year old male here for INACTIVATED INFLUENZA VACCINE. [id number] Season Patient is identified by name and date of : Yes [] CONTRAINDICATIONS color enhanced section Age less than 6 months? No Allergy to eggs, chicken, chicken feathers, or chicken dander? No Allergy to thimerosal (a preservative) or formaldehyde, gelatin? No History of severe reaction to any vaccine component or a previous dose of influenza vaccination? No History of Guillain-Stovall Syndrome within 6 weeks after a previous influenza vaccine? No Patient is not moderately or severely ill? No Current temperature greater or equal to 100.4F? No History of Bone Marrow Transplant prior 6 months or solid organ transplant in the past 3 months ? No History of fainting after a prior injection or medical procedure? No- ? If patient has fainted in the past, the CDC recommends sitting or lying down for 15 minutes after the vaccination. [] VERIFICATION color enhanced section Was the answer Yes for any of the above contraindications? No contraindications present. Acceptable to proceed with vaccine. Patient/guardian agrees the above answers are true to the best of their knowledge? Yes Flu vaccine information sheet given? Yes [facility] for details of immunizations adminstered today. Patient age: [age] year old For The 3834-8031 Flu Season 6-35 months old: Fluzone 0.25 ml - IM (Preservative Free) 3 years of age: Fluzone 0.5 ml - IM (Preservative Free) 3 years and older: Fluzone 0.5 ml- IM-(with Preservatives) 65+ years old: 2-49 years old Fluzone High-Dose 0.5 ml - IM (Preservative Free) FLUMIST- intranasal REMEMBER: If patient is less than 9 years of age and this is the first vaccine of Influenza to be received in any flu season, they should receive a second dose in one months time. LEIDA CISNEROS MD 01/17/2018 5:27 PM Signed Reason for Visit Patient presents with: Established Patient: 2 month follow up- DM, HTN,CHF Imm/Inj: Flu Vaccine Jake Blankenship is a 52 year old male who presents here today for Above Complaints.. Health Maintenance BP CONTROLLED (<130/80) DTAP,TDAP,TD(6 - Tdap) COLORECTAL CANCER SCREENING,SEE MODIFIER DILATED RETINAL EXAM INFLUENZA(1) LDL CHOLESTEROL HPI He has gained 40 pounds in the past 3 months, he went to see the needle process felt goods supervisor. Who put him on the lasix 80 mgs, 2 times a day for a few days and went back to 40 mgs 2 times a day, he has not lost any weight since then. He leaks mana protein in his urine. Booth Operator did a stress test on him that was not significant. He is limited with what he Is doing, currently, he cannot walk for more than 200 feet with out feeling sob. This is very new. No chest pain. No pain in the legs. He is not drinking more than 2 litres of water in a day. Seems like his peeing is more than normal.he is drinking a couple cans of diet pop at the most. Has some orthopnea and PND Noted that his albumin for dr bray office labs was only 2.4 He has been using his sleep machine daily he notes His sugars are well controlled with the insulin. No problem-specific Assessment AND Plan notes found for this encounter. PAST MEDICAL HISTORY Diagnosis Date - CHF (congestive heart failure) ([facility]) 10/18/2017 - Diabetes ([facility]) - Hypertension - WI (myocardial infarction) ([facility]) 03-12-09 stent placement - Myocardial infarction ([facility]) 03/16/2014 PAST SURGICAL HISTORY Procedure Laterality Date - CABG (5) VENOUS GRAFTS AND ARTERIAL GRAFT(S) 03/17 - PAST SURGICAL HISTORY OF ORIF LMF with pins - REMOVAL OF TONSILS,<12 Y/O Tonsillectomy FAMILY HISTORY Problem Relation Age of Onset - Cancer Mother Social History Substance Use Topics - Smoking status: Never Smoker - Smokeless tobacco: Former User Quit date: 01/14/2014 - Alcohol use No Past medical history, appointments, medications, allergies reviewed. Pertinent Lab/Diagnostic Studies are reviewed and discussed today Current Outpatient Prescriptions: - atorvastatin (LIPITOR) 40 mg tablet - amLODIPine (NORVASC) 5 mg tablet - insulin glargine U-300 conc (TOUJEO SOLOSTAR U-300 INSULIN) 300 unit/mL (1.5 mL) inpn - insulin lispro (HUMALOG KWIKPEN) 100 unit/mL inpn - losartan (COZAAR) 100 mg tablet - KLOR-CON M10 10 mEq tablet - furosemide (LASIX) 40 mg tablet - ferrous sulfate 325 mg (65 mg iron) tablet - omeprazole (PRILOSEC) 20 mg capsule - carvedilol (COREG) 25 mg tablet - aspirin, enteric coated (ASPIR-81) 81 mg EC tablet - Insulin [place], Disposable, 31 gauge x 1/4 ndle - COMPOUNDED PRESCRIPTION - Insulin Syringe-Needle U-100 1 mL 31 gauge x 5/16 syrg - albuterol HFA (VENTOLIN HFA) 90 mcg/actuation inhaler - insulin syringe,safetyneedle 1 mL 31 gauge x 5/16 syrg - EASY TOUCH 31 gauge x 3/16 ndle Review of Systems CONSTITUTIONAL: No fevers, chills night sweats, unintended weight loss CARDIOVASCULAR: No chest pain, dyspnea, palpitations, orthopnea, PND, ankle edema. PULM: No dyspnea, unexplained cough. GI: No dysphagia/odynophagia, problematic reflux, constipation, diarrhea, changes in stool habits, hematochezia, melena. : No new urinary complaints, including dysuria, gross hematuria or pyuria. NEURO: No new balance problems, peripheral weakness/paresthesias or numbness of concern. Physical Exam BP 146/82 Pulse 67 Resp 16 Ht 170.2 cm (5' 7) Wt (!) 160.6 kg (354 lb) SpO2 96% BMI 55.44 kg/m? General appearance: appears more swollen and flushed in the face, seems bloated all over the face alert, in no acute distress, well nourished. Skin: Skin color, texture, turgor normal, no suspicious rashes or lesions Head: Normocephalic, no masses, lesions, tenderness or abnormalities Eyes: Anicteric sclera. Pupils are equally round and reactive to light. Extraocular movements are intact. Ears: External ears normal, canals clear Oropharynx: Lips, mucosa, and tongue normal, teeth and gums normal, oropharynx normal Neck: Supple, no adenopathy; thyroid symmetric, normal size, no bruits Back:deferred Lungs: Lungs clear to auscultation. No wheezing, rhonchi, rales Heart: RRR without murmur, gallop, or rubs. No ectopy Abdomen: Normal abdominal exam, Abdomen soft, non-tender. Bowel sounds normal. No masses, organomegaly Extremities: No deformities, edema 2+, skin discoloration, clubbing or cyanosis. Good capillary refill. Musculoskeletal: No joint swelling, deformity, or tenderness Peripheral pulses: Normal Neuro: Gait normal. Reflexes normal and symmetric. Sensation grossly intact. ASSESSMENT/PLAN: 1. Hypoalbuminemia - ICD9: 273.8, ICD10: E88.09 (primary diagnosis) With his hypoalbuminemia he could be having nephrotic syndrome. Discussed this with the patient. Will get him care coordination. 2. Need for vaccination - ICD9: V05.9, ICD10: Z23 - INFLUENZA VACCINE QUADRIVALENT AGE 3 YRS PLUS + IM 3. Uncontrolled hypertension - ICD9: 401.9, ICD10: I10 - good control - Recommended regular aerobic exercise. - Recommend home blood pressure monitoring, to bring results in on next visit - Goal of BP <130/80 4. Uncontrolled type 2 diabetes mellitus with insulin therapy (HCC) - ICD9: 250.02, V58.67, ICD10: E11.65, Z79.4 Controlled. - Continue current medications - HGB A1C 5. Hyperlipidemia with target LDL less than 70 - ICD9: 272.4, ICD10: E78.5 Cont medication 6. Proteinuria, unspecified type - ICD9: 791.0, ICD10: R80.9 Very concerning. 7. Weight gain - ICD9: 783.1, ICD10: R63.5 Very very concerning 8. Acute on chronic congestive heart failure, unspecified heart failure type (HCC) - ICD9: 428.0, ICD10: I50.9 Discussed with thomas 9. Anasarca - ICD9: 782.3, ICD10: R60.1 - URINALYSIS WITH MICROSCOPIC - COMP METABOLIC PANEL - CBC + DIFF - HGB A1C - TSH BLD - CORTISOL BLD 10. SOB (shortness of breath) - ICD9: 786.05, ICD10: R06.02 - XR CHEST 2V FRONTAL/LAT - D-DIMER Spent more than 40 mins with the patient LEIDA CISNEROS MD Referring Provider: LEIDA CISNEROS [[id number]] Allergies As of Date: 01/17/2018 Noted Allergy Reaction PRAVACHOL (PRAVASTATIN SODIUM) 08/11/2009 5 - Intolerance Comments: Myalgias/arthralgias. Resolved off med. Date Reviewed: 01/17/2018 Reviewed by: Dominga Stauffer LPN - Fully Assessed Reason for Visit: Established Patient [175] Cmt: 2 month follow up- DM, HTN,CHF Imm/Inj [58] Cmt: Flu Vaccine Reason For Visit History Recorded Primary Visit Diagnosis:Hypoalbuminemia [E88.09] Other Visit Diagnoses:Need for vaccination [Z23] Uncontrolled hypertension [I10] Uncontrolled type 2 diabetes mellitus with insulin therapy (HCC) [E11.65, Z79.4] Hyperlipidemia with target LDL less than 70 [E78.5] Proteinuria, unspecified type [R80.9] Weight gain [R63.5] Acute on chronic congestive heart failure, unspecified heart failure type (HCC) [I50.9] Anasarca [R60.1] SOB (shortness of breath) [R06.02] Order(s):INFLUENZA VACCINE QUADRIVALENT AGE 3 YRS PLUS + IM [[id number]] Order #: [id number] URINALYSIS WITH MICROSCOPIC [SQUAWMIC] Order #: [id number]. #:[id number] COMP METABOLIC PANEL [SQCMP] Order #: [id number] FUTURE CBC + DIFF [SQCBCDIF] Order #: [id number] FUTURE HGB A1C [RXLTH0Z] Order #: [id number] FUTURE XR CHEST 2V FRONTAL/LAT [[id number]] Order #: [id number] FUTURE D-DIMER [SQDDMER] Order #: [id number] FUTURE TSH BLD [SQTSH] Order #: [id number] FUTURE CORTISOL BLD [SQCOR] Order #: [id number] FUTURE Prescriptions as of 01/17/2018 Sig: ATORVASTATIN 40 MG TABLET TAKE ONE TABLET BY MOUTH ONCE* AMLODIPINE 5 MG TABLET 2 tablets once daily. Increas* INSULIN GLARGINE (U-300) CONC* Inject 140 Units subcutaneous* INSULIN LISPRO (U-100) 100 UN* Inject 30-50 Units subcutaneo* LOSARTAN 100 MG TABLET Take 1 tablet by mouth once d* KLOR-CON M10 MEQ TABLET,EXTEN* Take 1 tablet by mouth once d* FUROSEMIDE 40 MG TABLET Take 1 tablet by mouth twice * FERROUS SULFATE 325 MG (65 MG* TWICE DAILY WITH MEALS OMEPRAZOLE 20 MG CAPSULE,ANAI* TAKE ONE CAPSULE BY MOUTH ONC* CARVEDILOL 25 MG TABLET Take 1 tablet by mouth twice * ASPIRIN 81 MG TABLET,DELAYED * Take 1 tablet by mouth once d* PEN NEEDLE, DIABETIC 31 GAUGE* 5 times daily as directed wit* COMPOUNDED PRESCRIPTION Rx compression socks. Name of* INSULIN SYRINGE-NEEDLE U-100 * ALBUTEROL SULFATE HFA 90 MCG/* Inhale 2 Puffs as instructed * INSULIN SYRINGE WITH SAFETY N* Use three times daily with re* EASY TOUCH 31 GAUGE X 06/17 N* Use with meal-time insulin in* Medication notes this encounter INSULIN GLARGINE (U-300) CONC. 300 UNIT/ML (1.5 ML) SUBCUTANEOUS PEN >> Dominga Stauffer LPN 01/17/2018 8:56 AM >> DOMINGA STAUFFER LPN ute Jan 17, 2018 8:56 AM now taking FUROSEMIDE 40 MG TABLET >> Dominga Stauffer LPN 01/17/2018 8:59 AM >> DOMINGA STAUFFER LPN ute Jan 17, 2018 8:59 AM per changed dose to 1 1/2 pills twice daily Problem List As Of Date 01/17/2018 Noted Resolved Coronary Artery Disease [I25.10] INVALID FOR* s/p Angioplasty with Stent INVALID FOR* Uncontrolled hypertension [I10] INVALID FOR* More... Hyperlipidemia with target LDL less than 70 [E7*INVALID FOR* Diabetes mellitus (HCC) [E11.9] INVALID FOR*10/15/2013 Proteinuria [R80.9] INVALID FOR* More... Uncontrolled type 2 diabetes mellitus with insu*INVALID FOR* Myocardial infarction (HCC) [I21.9] INVALID FOR* Edema [R60.9] INVALID FOR* MELODIE (obstructive sleep apnea) AHI 11 [G47.33] INVALID FOR* Obesity, Class III, BMI 40-49.9 (morbid obesity*INVALID FOR* Acute on chronic congestive heart failure (HCC)*INVALID FOR* Encounter Status:Closed by LEIDA CISNEROS MD on 01/17/18 BASIC METABOLIC Collected: 01/04/2018 Status: F Source: [place] PROFILE (BMP) 9:41 AM [facility] REPOSITORY TYPE CODE TESTS RESULT OUT OF RANGE REFERENCE UNITS LAB L501.0100 74-106 mg/dL High GLU 151 Result Comment: Fasting Glucose result greater than or equal to 126 mg/dL suggests DIABETES MELLITUS per A.D.A. criteria. Please note revised GLUCOSE reference range effective 2017. LAB L501.1000 7-18 mg/dL High BUN 28 LAB L501.1100 0.70-1.30 mg/dL High CREAT,SERUM 1.57 Result Comment: The validity of the calculated GFR AND GFRAA in patients over 70 years has not been determined. Clinical correlation is essential. LAB L501.1110 >60 mL/min Low EST GFR 49 Result Comment: Non- GFR Calc LAB L501.1115 >60 mL/min Low EST GFR - AA 59 Result Comment: GFR Calc LAB L501.1300 10-20 RATIO Normal BUN/CRE 17.8 LAB L501.2200 8.5-10.1 mg/dL CA Normal 8.6 LAB L501.5300 136-145 mmol/L NA Normal 137 LAB L501.5600 3.5-5.1 mmol/L K Normal 4.2 Result Comment: Slight Hemolysis, Result may be falsely increased. LAB L501.5900 98-107 mmol/L Normal CL 107 LAB L501.6100 21.0-32.0 mmol/L Normal CO2 23.0 LAB L501.6200 5-15 Normal 7 GAP Performed By: #### L500.2500 #### [facility] [address] [place], [address] [facility] Observed: 01/03/2018 Status: COMPLETED Source: [place] 12:00 AM [facility] REPOSITORY Patient Outreach (FAMPST) JAKE BLANKENSHIP ([id number]) 1965 M Date Time Provider Department 01/03/18 LEIDA CISNEROS FAMPST During your visit today, we recorded the following information about you: Allergies As of Date: 01/03/2018 Noted Allergy Reaction PRAVACHOL (PRAVASTATIN SODIUM) 08/11/2009 5 - Intolerance Comments: Myalgias/arthralgias. Resolved off med. Date Reviewed: 11/23/2017 Reviewed by: Dominga Stauffer LPN - Fully Assessed Visit Diagnosis:Medication management [Z79.899] Order(s):ALBUMIN/CREAT RATIO RND UR [SQUACR] Order #: [id number] FUTURE LIPID PANEL BASIC [SQLIPB] Order #: [id number] FUTURE Prescriptions as of 01/03/2018 Sig: AMLODIPINE 5 MG TABLET 2 tablets once daily. Increas* INSULIN GLARGINE (U-300) CONC* Inject 140 Units subcutaneous* INSULIN LISPRO (U-100) 100 UN* Inject 30-50 Units subcutaneo* LOSARTAN 100 MG TABLET Take 1 tablet by mouth once d* KLOR-CON M10 MEQ TABLET,EXTEN* Take 1 tablet by mouth once d* FUROSEMIDE 40 MG TABLET Take 1 tablet by mouth twice * FERROUS SULFATE 325 MG (65 MG* TWICE DAILY WITH MEALS PEN NEEDLE, DIABETIC 31 GAUGE* 5 times daily as directed wit* COMPOUNDED PRESCRIPTION Rx compression socks. Name of* OMEPRAZOLE 20 MG CAPSULE,ANAI* TAKE ONE CAPSULE BY MOUTH ONC* INSULIN SYRINGE-NEEDLE U-100 * ALBUTEROL SULFATE HFA 90 MCG/* Inhale 2 Puffs as instructed * CARVEDILOL 25 MG TABLET Take 1 tablet by mouth twice * INSULIN SYRINGE WITH SAFETY N* Use three times daily with re* X ATORVASTATIN 40 MG TABLET Take 1 tablet by mouth daily * EASY TOUCH 31 GAUGE X 06/17 N* Use with meal-time insulin in* ASPIRIN 81 MG TABLET,DELAYED * Take 1 tablet by mouth once d* Problem List As Of Date 01/03/2018 Noted Resolved Coronary Artery Disease [I25.10] INVALID FOR* s/p Angioplasty with Stent INVALID FOR* Uncontrolled hypertension [I10] INVALID FOR* More... Hyperlipidemia with target LDL less than 70 [E7*INVALID FOR* Diabetes mellitus (HCC) [E11.9] INVALID FOR*10/15/2013 Proteinuria [R80.9] INVALID FOR* More... Uncontrolled type 2 diabetes mellitus with insu*INVALID FOR* Myocardial infarction (HCC) [I21.9] INVALID FOR* Edema [R60.9] INVALID FOR* MELODIE (obstructive sleep apnea) AHI 11 [G47.33] INVALID FOR* Obesity, Class III, BMI 40-49.9 (morbid obesity*INVALID FOR* Acute on chronic congestive heart failure (HCC)*INVALID FOR* Encounter Status:Closed by HobbyGOMEZ on 02/03/18 CARDIOLOGY VISIT Observed: 12/15/2017 Status: F Source: [place] REPORT 10:36 AM [facility] REPOSITORY [facility] [address] [place] [address] OFFICE VISIT Date of Service: 12/07/17 MR#: [id number] Acct: [id number] Name: JAKE BLANKENSHIP Rep #: [id number] : 1965 Provider: FERDINAND Brewster Age/Sex: 52/M Location: [facility] [place], [place].[facility] Status: Signed HPI HPI Details: JAKE BLANKENSHIP, is a 52 M who presents to the office today for a cardiovascular outpatient follow-up. He has history of coronary artery disease status post bypass surgery x5 in 2013 with LOGAN to distal LAD, reverse SVG to first diagonal and second diagonal, obtuse marginal, and posterior descending artery, diastolic congestive heart failure, hypertension, hyperlipidemia, diabetes mellitus, and obesity. Pt. denies arm, jaw, or neck discomfort. His exercise tolerance is stable. Pt. denies symptoms of palpitations, lightheadedness, dizziness, near syncope, or syncopal episodes. Pt. denies edema or claudication issues. Pt. denies orthopnea, PND, or myalgia. He states feeling weak and tired most days. He continues to feel SOB at night when lying flat. He states SOB with exertion such as walking. His SOB improves with slowing his pace and sleeping in a recliner. His left upper chest/shoulder pain occurs at rest and does not occur with exertion. Intake Vital Signs12/07/17 Height 5 ft 7 in 12/07/17 Weight: 334 lb 12/07/17 Body Mass Index (BMI) 52.3 12/07/17 Blood Pressure 140/62 12/07/17 Respiratory Rate 20 12/07/17 Pulse Rate 62 Intake Visit Reasons: SOB/EDEMA Allergies pravastatin sodium [From Pravachol] Adverse Reaction (Intermediate, Verified 11/02/17 11:09) muscle aches Medications Aspirin [Aspirin, Baby] 81 mg PO DAILY@0800 10/16/15 [History Confirmed 12/07/17] Atorvastatin Calcium [Lipitor] 40 mg PO QHS 10/16/15 [History Confirmed 12/07/17] Carvedilol [Coreg (Beta William)] 25 mg PO BID 08/29/17 [History Confirmed 12/07/17] Insulin Glargine,Hum.rec.anlog [Toujeo Solostar] 150 unit SQ DAILY 08/29/17 [History Confirmed 12/07/17] Insulin Lispro [Humalog Tyree Kwikpen] 50 unit SQ TIDCM 08/29/17 [History Confirmed 12/07/17] Omeprazole [Prilosec] 20 mg PO DAILY 08/29/17 [History Confirmed 12/07/17] Ferrous Sulfate 325 mg PO BIDCM #60 tab 10/19/17 [Rx Confirmed 12/07/17] Furosemide [Lasix] 40 mg PO BID #60 tab 10/19/17 [Rx Confirmed 12/07/17] Potassium Chloride [K-Dur] 10 meq PO DAILY #30 tab 10/19/17 [Rx Confirmed 12/07/17] amlodipine 5 mg tablet 5 mg PO QDAY #90 tab 11/02/17 [Rx Confirmed 11/02/17] losartan 100 mg tablet 100 mg PO QDAY #90 tab 11/02/17 [Rx Confirmed 12/07/17] FORMERLY [facility], [facility] Medical History Acute diastolic (congestive) heart failure (Chronic) Left ventricular hypertrophy (Chronic) Secondary pulmonary arterial hypertension (Chronic) Atherosclerosis of coronary artery bypass graft without angina pectoris (Chronic) Hypertension (Chronic) Lymphedema of left leg (Chronic) Morbid obesity (Chronic) Hyperlipidemia (Chronic) Diabetes mellitus out of control (Chronic) Left leg cellulitis (Chronic) Anemia (Chronic) CKD (chronic kidney disease) stage 2, GFR 60-89 ml/min (Chronic) GERD (gastroesophageal reflux disease) (Chronic) Morbid obesity (Chronic) MELODIE (obstructive sleep apnea) (Chronic) Old myocardial infarction (Chronic) Prostatism (Chronic) Type 2 diabetes mellitus (Chronic) History of MRSA infection (Resolved) Surgical History H/O coronary artery bypass surgery (Resolved 03/2014) History of coronary artery stent placement (Resolved) History of open reduction and internal fixation (ORIF) procedure (Resolved) History of tonsillectomy (Resolved) Family History Father Hypertension Social History Smoking Status: Never smoker ROS Const Const: Positive for fatigue and weakness; negative for difficulty sleeping, frequent falls, excessive sweating or headache(s) Eyes Eyes: Negative for loss of peripheral vision, transient loss of vision, blurry vision, tunnel vision or double vision ENT ENT: Negative for headache(s), dizziness, Nosebleed/epistaxis or balance problems Cardio Chest Pain: Yes Frequency: daily Character: dull Onset: exercise Location: left chest (radiating to left shoulder) Duration: minutes Exacerbation: activity Relieving: rest Palpitations: No Edema: Bilateral (BLE) Muscle aches with walking: None Resp Respiratory: Positive for SOB with activity (Developes left sided chest pain especially when weather is warm) and SOB orthopnea\SOB lying down (Has not slept in bed for the past 3 months); negative for SOB at rest, paroxysmal nocturnal dyspnea or Cough GI GI: Negative nausea, heartburn, black,tarry stools or vomiting : Negative for hematuria Musc Musc: Negative for balance problems, muscle aches/ myalgia, muscle weakness or joint pain Skin Skin: Negative non-healing lesions, unusual bruising or rash Neuro Neuro: Positive for weakness; negative for frequent falls, headache(s), blurry vision, double vision, dizziness, lightheadedness, orthostatic symptoms, near syncope, syncope or lack of coordination Jordan Hematologic/Lymphatic: Negative for easy bruising or easy bleeding Endo Endo: Positive for fatigue; negative for excessive sweating or increased thirst/drinking Psych Psych: Negative for anxiety or depression Allergy Allergy/Immunology: Negative for hives, Negative for rash Cardiology Exam Const Appearance: cooperative, healthy appearing, well developed, well groomed and no acute distress Nutritional Appearance: well nourished and obese Orientation: alert, awake and oriented x3 Head Head: normal to inspection, normocephalic and atraumatic Ears: hearing grossly normal bilaterally and external ears normal Nose: external nose normal, nares normal Face and Sinus: face symmetric Mouth: oral mucosae normal, tongue normal and moist mucous membranes Teeth and gingiva: dentition normal Eyes General: appearance normal, both eyes and all related structures Eyelids: eyelids normal Conjunctivae: conjunctivae normal Pupils: PERRL and normal by confrontation EOM: EOM intact bilaterally Neck Neck: normal visual inspection, trachea midline and no JVD JVD: +5 Carotids: normal carotid upstroke and bounding pulses Chest Chest inspection: normal inspection of the chest, symmetric chest movement and normal respiratory effort Auscultation: Bilateral: Clear to Auscultation Cardio Palpation: normal PMI Rate: regular rate Rhythm: regular rhythm Heart sounds: S1 normal, S2 normal and normal, physiologic split S2; negative rub, gallop or murmur GI GI: normal to inspection, soft and obese Neuro General: alert, awake, oriented x3, no focal sensory deficit, gait normal and moves all extremities Skin Skin: no rashes or lesions noted Extremities Pulses: Normal: Right Posterior Tibial Pulse, Left Posterior Tibial Pulse, Right Radial Pulse, Left Radial Pulse Lower Extremity Edema: +2: Right, +3: Left Musculoskel Musculoskeletal: No joint tenderness Psych Psychological: normal affect Supplemental Info Echocardiogram from October 2017 showed moderate concentric LVH, estimated ejection fraction of 65%, normal diastology for age, severely enlarged left atrium, mild mitral valve insufficiency, trivial tricuspid valve insufficiency, and RVSP of 44 mmHg. Stress test from November 2017 showed no evidence of ischemia, previous small apical and basal inferior lateral infarct likely present, and mildly reduced left ventricular ejection fraction of 43%. Carotid artery Duplex from March 2014 showed both right and left internal carotid arteries with 1-39% stenosis. Assessment AND Plan 1. Dyspnea on exertion R06.09 JESSICA Stern His echocardiogram in October 2017 showed ejection fraction of 65% with severely enlarged left atrium, mild mitral valve insufficiency, and RVSP of 44 mmHg. His most recent stress test in November 2017 was negative for ischemia and reported ejection fraction 43%. His laboratory work from December 02, 2017 showed an elevated BNP of 160.6. He will increase his Lasix to 80 mg in the a.m. and 40 mg in the mid afternoon. He will contact our office next week with an update. If his shortness of breath continues further consideration/discussion with Dr. Sanchez regarding desire to further evaluate coronary anatomy in the setting of a normal stress test. 2. Atherosclerosis of coronary artery bypass graft of [place] heart without angina pectoris I25.810 S/P CABG in 03/2014 with LOGAN to distal LAD, reverse SVG to first diagonal and second diagonal, obtuse marginal, and posterior descending artery; JESSICA Stern Is difficult to discern if his chest pain is truly related to his chest or left shoulder. He states having a recent fall onto his left shoulder. This pain occurs at rest and is not exertional. At this time we will continue to monitor. His stress test in November 2017 was considered negative for ischemia. 3. H/O coronary artery bypass surgery Z95.1 S/P CABG in 03/2014 with LOGAN to distal LAD, reverse SVG to first diagonal and second diagonal, obtuse marginal, and posterior descending artery at [place]; JESSICA Stern He will continue current treatment plan as outlined above. 4. Chronic diastolic congestive heart failure I50.32 JESSICA Stern His echocardiogram October 2017 showed ejection fraction of 65%. His stress test from November 2017 showed ejection fraction 43%. As outlined above, his diuretic will be adjusted for symptoms and elevated BNP. 5. Essential hypertension I10 JESSICA Stern His echocardiogram in October 2017 showed moderate concentric LVH. Patient's amlodipine was decreased and his losartan was increased after last office visit. His blood pressure remains on the higher end of expected range. Hopefully adjustments of diuretic will continue to help with this. We will continue to follow this. Depending on his overall course, further medications may need to be adjusted or added. He was reminded of the importance of lifestyle modifications to help with this as well. 6. Hyperlipidemia, unspecified hyperlipidemia type E78.5 Plan - JESSICA Whitley Lipid panel from October 2017 showed cholesterol: 134, HDL: 30, LDL: 60, and triglycerides: 222. He will continue with current statin medication and we will continue to monitor. 7. Morbid obesity E66.01 Plan - JESSICA Whitley He was reminded of the importance of healthy weight management in relation to cardiovascular health as well as sleep apnea and diabetes. He acknowledged understanding. He will continue lifestyle modifications. Plan Detail Additional Comments - JESSICA Whitley Thank you for allowing us to participate in the patients plan of care, if you have any questions please do not hesitate to call. This note was generated using a voice recognition system and there may be incorrect words, spelling or punctuation that were not noted when reviewing the office note prior to saving. Coding Level of Care Code Off vis,est,level 4 Diagnoses Dyspnea on exertion R06.09 Dyspnea type: dyspnea on exertion Atherosclerosis of coronary artery bypass graft of [place] heart without angina pectoris I25.810 [place] vs. transplanted heart: [place] heart H/O coronary artery bypass surgery Z95.1 Chronic diastolic congestive heart failure I50.32 Heart failure chronicity: chronic Essential hypertension I10 Hypertension type: essential hypertension Hyperlipidemia, unspecified hyperlipidemia type E78.5 Hyperlipidemia type: unspecified Morbid obesity E66.01 Coding Level of Care Code Off vis,est,level 4 Diagnoses Dyspnea on exertion R06.09 Dyspnea type: dyspnea on exertion Atherosclerosis of coronary artery bypass graft of [place] heart without angina pectoris I25.810 [place] vs. transplanted heart: [place] heart H/O coronary artery bypass surgery Z95.1 Chronic diastolic congestive heart failure I50.32 Heart failure chronicity: chronic Essential hypertension I10 Hypertension type: essential hypertension Hyperlipidemia, unspecified hyperlipidemia type E78.5 Hyperlipidemia type: unspecified Morbid obesity E66.01 12/07/17 1116 <Electronically signed by Quincy LOPEZ> Date Quincy LOPEZ 12/15/17 1036<Electronically signed by Piero Sanchez MD> Cosigner Signature: Date (if applicable) Piero Sanchez MD CC: Leida Cisneros MD PROGRESS Observed: 12/14/2017 Status: COMPLETED Source: [place] 9:00 AM [facility] REPOSITORY [facility] ID: [id number] Author: Saman Parkinson (Pharmacist) Service: (none) Author Type: Pharmacist Type: Progress Notes Filed: 12/14/2017 11:42 AM Note Text: Patient consents to pharmacy collaborative practice agreement. REASON FOR CONSULT: DM? GOALS: A1c <?8% CONSULTING PROVIDER: Dr. Cisneros?? Date of Consult: 02/2017 Jake Blankenship is a 52 year old male was last seen in [facility] by PCP, Dr. LEIDA CISNEROS MD on 11/23. Patient is presenting today for f/u pharmacotherapy management appointment for DM. At last PharmD visit on 11/01 no med changes were made. INTERIM HISTORY: Reports saw [facility] Cardiology last week. Due to increased SOB, was instructed to increase furosemide to 80mg BID Tuesday and Tuesday, and he felt better, reports resumed normal dosing of 40mg BID on Tuesday, and today starting to get more shortness of breath Cardiology also increased losartan and decreased amlodipine to help with LE edema He reports no change in LE edema since decrease of amlodipine dose Plans to start the Keto Diet in the next month, son already doing Will be limiting carbs but unsure the amounts Past DM medications: Metformin?and empagliflozin held at [facility] in September d/t TALITA Current DM Medications: Insulin glargine 300 units/mL 140 units QAM (80 units plus 60 units) Insulin lispro 50 units TID meals (if pre-meal BG is 140 or more he takes 50, otherwise takes 30-40) Current HTN Medications: Amlodipine 5mg once daily Carvedilol 25mg BID Losartan 100mg once daily Furosemide 40mg BID Preventative Medications: ? On GEENA/ARB: Yes ? On Statin: Yes ? On ASA: Yes ROS: ? Patient denies CP, SOB, PEREZ, blurred vision, dizziness or lightheadedness ? Patient denies symptoms of hypoglycemia (sweating, anxiety, palpitations, hunger, and tremor) ? Patient denies symptoms of hyperglycemia (polyuria, polydipsia, polyphagia) ? Patient denies potential medication adverse effects DIET/EXERCISE/SOCIAL Hx: ? Breakfast: egg sandwich (one slide bread) ? Lunch: chili and grilled cheese ? Dinner: meat and potatoes ? Snacks: denies ? Following Na restrictions: no ? Beverages: coffee, water, occasional diet pop MEDICATIONS: ? Pill bottles are not?present. ? Adherence: denies?missed doses. ? [facility]acy: [facility]? Rx coverage: [facility] ? Affordability: no issues, PAP for Humalog, voucher for Toujeo ? Diabetes supplies: Relion ? Organization System: [employer] ACTIVE PROBLEM LIST Coronary Artery Disease S/P Angioplasty With Stent Uncontrolled Hypertension Hyperlipidemia With Target Ldl Less Than 70 Proteinuria Uncontrolled Type 2 Diabetes Mellitus With Insulin Therapy ([facility]) Myocardial Infarction ([facility]) Edema MELODIE (obstructive sleep apnea) AHI 11 Obesity, Class Iii, Bmi 40-49.9 (Morbid Obesity) ([facility]) Acute On Chronic Congestive Heart Failure ([facility]) PAST MEDICAL HISTORY Diagnosis Date - CHF (congestive heart failure) ([facility]) 10/18/2017 - Diabetes ([facility]) - Hypertension - WI (myocardial infarction) ([facility]) 03-12-09 stent placement - Myocardial infarction ([facility]) 03/16/2014 ALLERGIES Allergen Reactions - Pravachol [Pravasta* Intolerance Myalgias/arthralgias. Resolved off med. Medication List Medication Directions Comments Action/Plan albuterol HFA (VENTOLIN HFA) 90 mcg/actuation inhaler Inhale 2 Puffs as instructed every 4 hours as needed for Wheezing/Shortness of Breath. amLODIPine (NORVASC) 10 mg tablet Take 0.5 tablets by mouth once daily. aspirin, enteric coated (ASPIR-81) 81 mg EC tablet Take 1 tablet by mouth once daily. atorvastatin (LIPITOR) 40 mg tablet Take 1 tablet by mouth daily at bedtime. For cholesterol. beclomethasone (QVAR) 40 mcg/actuation inhaler Inhale 2 Puffs as instructed twice daily. carvedilol (COREG) 25 mg tablet Take 1 tablet by mouth twice daily with meals. COMPOUNDED PRESCRIPTION Rx compression socks. Name of the company- [employer] 20-30 mm compression Natural rubber gripper toe Model # 503 X-short EASY TOUCH 31 gauge x 3/16 ndle Use with meal-time insulin injections five times daily. ferrous sulfate 325 mg (65 mg iron) tablet TWICE DAILY WITH MEALS furosemide (LASIX) 40 mg tablet Take 1 tablet by mouth twice daily. insulin glargine U-300 conc (TOUJEO SOLOSTAR U-300 INSULIN) 300 unit/mL (1.5 mL) inpn Inject 150 Units subcutaneously every morning. 80 units plus 70 units insulin lispro (HUMALOG KWIKPEN) 100 unit/mL inpn Inject 50 Units subcutaneously w MEALS. PATIENT ASSISTANCE - [facility] Insulin [place], Disposable, 31 gauge x 1/4 ndle 5 times daily as directed with meals. insulin syringe,safetyneedle 1 mL 31 gauge x 5/16 syrg Use three times daily with regular insulin Insulin Syringe-Needle U-100 1 mL 31 gauge x 5/16 syrg None Entered KLOR-CON M10 10 mEq tablet Take 1 tablet by mouth once daily. losartan (COZAAR) 100 mg tablet Take 1 tablet by mouth once daily. omeprazole (PRILOSEC) 20 mg capsule TAKE ONE CAPSULE BY MOUTH ONCE DAILY Rx meds not listed in EPIC: none OTCs: none Herbals: none GLYCEMIC CONTROL: ? Glucometer present at visit: No ? Reports FBGs all < 200 ? Hypoglycemia: no BLOOD PRESSURE CONTROL: Reports home BPs 120s-130s/70s VITALS: BP 156/79 Pulse 64 Last 3 Encounter BP Readings: Date: BP: 11/23/2017 132/62 11/02/2017 144/76 11/01/2017 144/58 Wt: 152 kg (335 lb) BMI: 52.47 kg/(m2) LABS Lab Results Component Value Date HBA1C 6.8 11/01/2017 HBA1C 8.8 09/14/2017 HBA1C 10.8 05/30/2017 CMP: Glucose 168 11/02/2017 BUN 18 11/02/2017 Creatinine 1.35 11/02/2017 Sodium 137 11/02/2017 Potassium 4.3 11/02/2017 Chloride 101 11/02/2017 CO2 24 11/02/2017 Protein, Total 7.9 09/14/2017 Albumin 3.1 09/14/2017 Calcium 8.9 11/02/2017 Alkaline Phosphatase 127 09/14/2017 Bilirubin, Total 0.2 09/14/2017 AST 29 09/14/2017 ALT 30 09/14/2017 GFR 55 Estimated Creatinine Clearance: 88.9 mL/min (A) (based on SCr of 1.35 mg/dL (H)). Last Lipid Panel Lab Results Component Value Date CHOL 135 02/02/2017 Lab Results Component Value Date HDL 29 02/02/2017 Lab Results Component Value Date LDL 62 02/02/2017 Lab Results Component Value Date TG 219 02/02/2017 Albumin/Creat Ratio (mg/g) Date Value 02/02/2017 1,727 (H) PHARMACOTHERAPY ASSESSMENT/PLAN: 1. Uncontrolled type 2 diabetes mellitus with insulin therapy (HCC) - ICD9: 250.02, V58.67, ICD10: E11.65, Z79.4 A1c goal < 8%, patient is at goal. BG data unavailable today, will call in one week to obtain. Patient compliant with and tolerating current regimen. Will continue current regimen at this time and make further adjustments with more BG data. Renal fxn improved back to baseline (TALITA in hospital) (could re-initiate metformin but patient reluctant d/t feeling better without it, likes taking fewer pills, will continue to hold for now, can re-address at future visits) and LFTs WNL and appropriate for continued therapy. Considered change to Toujeo Max pen (one injection of 140) but patient reluctant to do so given cost conerns with insulin in the past, doing ok with current insulin and voucher. Can consider in the future. ? CONTINUE insulin glargine 140 units QAM, lispro 30-50 units TID meals ? Instructed patient to continue checking BGs, bring glucometer to next visit, write down BGs for next week for PharmD call 2. Uncontrolled hypertension - ICD9: 401.9, ICD10: I10 (primary diagnosis) BP goal <?140/90, pt is not at goal on current therapy. Tolerating and compliant with therapy. LE swelling continues despite decrease in amlodipine. Losartan and carvedilol at max doses. Could max out amlodipine or or spironolactone for additional BP-lowering. Patient reports at-home BPs have been at goal, will obtain via phone call next week. Continue regimen at this time. Renal fxn and K+ WNL. ? CONTINUE losartan 100mg, amlodipine 5mg once daily, carvedilol 25mg BID, furosemide 40mg BID ? Instructed patient to check BPs daily and write down for PharmD call next week Patient is scheduled to see PCP 01/17. [facility] Cardiology in February Patient to return to clinic for PharmD f/u on 02/13, phone call next week. Patient verbalized understanding of instructions. Saman Parkinson PharmD, BCPS CNOV Observed: 12/14/2017 Status: COMPLETED Source: [place] 9:00 AM [facility] REPOSITORY Office Visit ([facility]ME[facility]) JAKE BLANKENSHIP ([id number]) 1965 M Date Time Provider Department 12/14/17 9:00 AM [facility] (PHARMACIST), SAMAN SKELTON During your visit today, we recorded the following information about you: Pulse Blood pressure 64/minute 156/79 YESY PAGAN 12/14/2017 11:42 AM Signed Patient consents to pharmacy collaborative practice agreement. REASON FOR CONSULT: DM? GOALS: A1c <?8% CONSULTING PROVIDER: Dr. Cisneros?? Date of Consult: 02/2017 Jake Blankenship is a 52 year old male was last seen in [facility] by PCP, Dr. LEIDA CISNEROS MD on 11/23. Patient is presenting today for f/u pharmacotherapy management appointment for DM. At last PharmD visit on 11/01 no med changes were made. INTERIM HISTORY: Reports saw [facility] Cardiology last week. Due to increased SOB, was instructed to increase furosemide to 80mg BID Tuesday and Tuesday, and he felt better, reports resumed normal dosing of 40mg BID on Tuesday, and today starting to get more shortness of breath Cardiology also increased losartan and decreased amlodipine to help with LE edema He reports no change in LE edema since decrease of amlodipine dose Plans to start the Keto Diet in the next month, son already doing Will be limiting carbs but unsure the amounts Past DM medications: Metformin?and empagliflozin held at [facility] in September d/t TALITA Current DM Medications: Insulin glargine 300 units/mL 140 units QAM (80 units plus 60 units) Insulin lispro 50 units TID meals (if pre-meal BG is 140 or more he takes 50, otherwise takes 30-40) Current HTN Medications: Amlodipine 5mg once daily Carvedilol 25mg BID Losartan 100mg once daily Furosemide 40mg BID Preventative Medications: ? On GEENA/ARB: Yes ? On Statin: Yes ? On ASA: Yes ROS: ? Patient denies CP, SOB, PEREZ, blurred vision, dizziness or lightheadedness ? Patient denies symptoms of hypoglycemia (sweating, anxiety, palpitations, hunger, and tremor) ? Patient denies symptoms of hyperglycemia (polyuria, polydipsia, polyphagia) ? Patient denies potential medication adverse effects DIET/EXERCISE/SOCIAL Hx: ? Breakfast: egg sandwich (one slide bread) ? Lunch: chili and grilled cheese ? Dinner: meat and potatoes ? Snacks: denies ? Following Na restrictions: no ? Beverages: coffee, water, occasional diet pop MEDICATIONS: ? Pill bottles are not?present. ? Adherence: denies?missed doses. ? [facility]acy[facility]? Rx coverage: [facility] ? Affordability: no issues, PAP for Humalog, voucher for Toujeo ? Diabetes supplies: [employer] ? Organization System: [employer] ACTIVE PROBLEM LIST Coronary Artery Disease S/P Angioplasty With Stent Uncontrolled Hypertension Hyperlipidemia With Target Ldl Less Than 70 Proteinuria Uncontrolled Type 2 Diabetes Mellitus With Insulin Therapy ([facility]) Myocardial Infarction ([facility]) Edema MELODIE (obstructive sleep apnea) AHI 11 Obesity, Class Iii, Bmi 40-49.9 (Morbid Obesity) ([facility]) Acute On Chronic Congestive Heart Failure ([facility]) PAST MEDICAL HISTORY Diagnosis Date - CHF (congestive heart failure) ([facility]) 10/18/2017 - Diabetes ([facility]) - Hypertension - [place] (myocardial infarction) ([facility]) 03-12-09 stent placement - Myocardial infarction ([facility]) 03/16/2014 ALLERGIES Allergen Reactions - Pravachol [Pravasta* Intolerance Myalgias/arthralgias. Resolved off med. Medication List Medication Directions Comments Action/Plan albuterol HFA (VENTOLIN HFA) 90 mcg/actuation inhaler Inhale 2 Puffs as instructed every 4 hours as needed for Wheezing/Shortness of Breath. amLODIPine (NORVASC) 10 mg tablet Take 0.5 tablets by mouth once daily. aspirin, enteric coated (ASPIR-81) 81 mg EC tablet Take 1 tablet by mouth once daily. atorvastatin (LIPITOR) 40 mg tablet Take 1 tablet by mouth daily at bedtime. For cholesterol. beclomethasone (QVAR) 40 mcg/actuation inhaler Inhale 2 Puffs as instructed twice daily. carvedilol (COREG) 25 mg tablet Take 1 tablet by mouth twice daily with meals. COMPOUNDED PRESCRIPTION Rx compression socks. Name of the company- [employer] 20-30 mm compression Natural rubber gripper toe Model # 503 X-short EASY TOUCH 31 gauge x 3/16 ndle Use with meal-time insulin injections five times daily. ferrous sulfate 325 mg (65 mg iron) tablet TWICE DAILY WITH MEALS furosemide (LASIX) 40 mg tablet Take 1 tablet by mouth twice daily. insulin glargine U-300 conc (TOUJEO SOLOSTAR U-300 INSULIN) 300 unit/mL (1.5 mL) inpn Inject 150 Units subcutaneously every morning. 80 units plus 70 units insulin lispro (HUMALOG KWIKPEN) 100 unit/mL inpn Inject 50 Units subcutaneously w MEALS. PATIENT ASSISTANCE - [facility] Insulin [place], Disposable, 31 gauge x 1/4 ndle 5 times daily as directed with meals. insulin syringe,safetyneedle 1 mL 31 gauge x 5/16 syrg Use three times daily with regular insulin Insulin Syringe-Needle U-100 1 mL 31 gauge x 5/16 syrg None Entered KLOR-CON M10 10 mEq tablet Take 1 tablet by mouth once daily. losartan (COZAAR) 100 mg tablet Take 1 tablet by mouth once daily. omeprazole (PRILOSEC) 20 mg capsule TAKE ONE CAPSULE BY MOUTH ONCE DAILY Rx meds not listed in EPIC: none OTCs: none Herbals: none GLYCEMIC CONTROL: ? Glucometer present at visit: No ? Reports FBGs all < 200 ? Hypoglycemia: no BLOOD PRESSURE CONTROL: Reports home BPs 120s-130s/70s VITALS: BP 156/79 Pulse 64 Last 3 Encounter BP Readings: Date: BP: 11/23/2017 132/62 11/02/2017 144/76 11/01/2017 144/58 Wt: 152 kg (335 lb) BMI: 52.47 kg/(m2) LABS Lab Results Component Value Date HBA1C 6.8 11/01/2017 HBA1C 8.8 09/14/2017 HBA1C 10.8 05/30/2017 CMP: Glucose 168 11/02/2017 BUN 18 11/02/2017 Creatinine 1.35 11/02/2017 Sodium 137 11/02/2017 Potassium 4.3 11/02/2017 Chloride 101 11/02/2017 CO2 24 11/02/2017 Protein, Total 7.9 09/14/2017 Albumin 3.1 09/14/2017 Calcium 8.9 11/02/2017 Alkaline Phosphatase 127 09/14/2017 Bilirubin, Total 0.2 09/14/2017 AST 29 09/14/2017 ALT 30 09/14/2017 GFR 55 Estimated Creatinine Clearance: 88.9 mL/min (A) (based on SCr of 1.35 mg/dL (H)). Last Lipid Panel Lab Results Component Value Date CHOL 135 02/02/2017 Lab Results Component Value Date HDL 29 02/02/2017 Lab Results Component Value Date LDL 62 02/02/2017 Lab Results Component Value Date TG 219 02/02/2017 Albumin/Creat Ratio (mg/g) Date Value 02/02/2017 1,727 (H) PHARMACOTHERAPY ASSESSMENT/PLAN: 1. Uncontrolled type 2 diabetes mellitus with insulin therapy (HCC) - ICD9: 250.02, V58.67, ICD10: E11.65, Z79.4 A1c goal < 8%, patient is at goal. BG data unavailable today, will call in one week to obtain. Patient compliant with and tolerating current regimen. Will continue current regimen at this time and make further adjustments with more BG data. Renal fxn improved back to baseline (TALITA in hospital) (could re-initiate metformin but patient reluctant d/t feeling better without it, likes taking fewer pills, will continue to hold for now, can re-address at future visits) and LFTs WNL and appropriate for continued therapy. Considered change to Toujeo Max pen (one injection of 140) but patient reluctant to do so given cost conerns with insulin in the past, doing ok with current insulin and voucher. Can consider in the future. ? CONTINUE insulin glargine 140 units QAM, lispro 30-50 units TID meals ? Instructed patient to continue checking BGs, bring glucometer to next visit, write down BGs for next week for PharmD call 2. Uncontrolled hypertension - ICD9: 401.9, ICD10: I10 (primary diagnosis) BP goal <?140/90, pt is not at goal on current therapy. Tolerating and compliant with therapy. LE swelling continues despite decrease in amlodipine. Losartan and carvedilol at max doses. Could max out amlodipine or or spironolactone for additional BP-lowering. Patient reports at-home BPs have been at goal, will obtain via phone call next week. Continue regimen at this time. Renal fxn and K+ WNL. ? CONTINUE losartan 100mg, amlodipine 5mg once daily, carvedilol 25mg BID, furosemide 40mg BID ? Instructed patient to check BPs daily and write down for PharmD call next week Patient is scheduled to see PCP 01/17. [facility] Cardiology in February Patient to return to clinic for PharmD f/u on 02/13, phone call next week. Patient verbalized understanding of instructions. Saman Parkinson, PharmD, BCPS SAMAN PARKINSON, PHARMACIST 12/14/2017 9:38 AM Signed Check blood pressure once per day and Saman will call you to obtain the numbers Call Cardiology about the Lasix Referring Provider: LEIDA CISNEROS [[id number]] Allergies As of Date: 12/14/2017 Noted Allergy Reaction PRAVACHOL (PRAVASTATIN SODIUM) 08/11/2009 5 - Intolerance Comments: Myalgias/arthralgias. Resolved off med. Date Reviewed: 11/23/2017 Reviewed by: Dominga Stauffer LPN - Fully Assessed Reason for Visit: Allied Health Visit [5] Cmt: DM follow-up Primary Visit Diagnosis:Uncontrolled type 2 diabetes mellitus with insulin therapy (HCC) [E11.65, Z79.4] Other Visit Diagnosis:Uncontrolled hypertension [I10] Order(s):insulin glargine U-300 conc (TOUJEO SOLOSTAR U-300 INSULIN) 300 unit/mL (1.5 mL) inpnInject 140 Units subcutaneously every morning. 80 units plus 60 unitsDisp: Rfl: insulin lispro (HUMALOG KWIKPEN) 100 unit/mL inpnInject 30-50 Units subcutaneously w MEALS. PATIENT ASSISTANCE - EDITH CARESDisp: Rfl: Prescriptions as of 12/14/2017 Sig: INSULIN GLARGINE (U-300) CONC* Inject 140 Units subcutaneous* AMLODIPINE 5 MG TABLET INSULIN LISPRO (U-100) 100 UN* Inject 30-50 Units subcutaneo* LOSARTAN 100 MG TABLET Take 1 tablet by mouth once d* KLOR-CON M10 MEQ TABLET,EXTEN* Take 1 tablet by mouth once d* FUROSEMIDE 40 MG TABLET Take 1 tablet by mouth twice * FERROUS SULFATE 325 MG (65 MG* TWICE DAILY WITH MEALS OMEPRAZOLE 20 MG CAPSULE,ANAI* TAKE ONE CAPSULE BY MOUTH ONC* ATORVASTATIN 40 MG TABLET Take 1 tablet by mouth daily * CARVEDILOL 25 MG TABLET Take 1 tablet by mouth twice * ASPIRIN 81 MG TABLET,DELAYED * Take 1 tablet by mouth once d* PEN NEEDLE, DIABETIC 31 GAUGE* 5 times daily as directed wit* COMPOUNDED PRESCRIPTION Rx compression socks. Name of* INSULIN SYRINGE-NEEDLE U-100 * ALBUTEROL SULFATE HFA 90 MCG/* Inhale 2 Puffs as instructed * INSULIN SYRINGE WITH SAFETY N* Use three times daily with re* EASY TOUCH 31 GAUGE X 3/16 N* Use with meal-time insulin in* Problem List As Of Date 12/14/2017 Noted Resolved Coronary Artery Disease [I25.10] INVALID FOR* s/p Angioplasty with Stent INVALID FOR* Uncontrolled hypertension [I10] INVALID FOR* More... Hyperlipidemia with target LDL less than 70 [E7*INVALID FOR* Diabetes mellitus (HCC) [E11.9] INVALID FOR*10/15/2013 Proteinuria [R80.9] INVALID FOR* More... Uncontrolled type 2 diabetes mellitus with insu*INVALID FOR* Myocardial infarction (HCC) [I21.9] INVALID FOR* Edema [R60.9] INVALID FOR* MELODIE (obstructive sleep apnea) AHI 11 [G47.33] INVALID FOR* Obesity, Class III, BMI 40-49.9 (morbid obesity*INVALID FOR* Acute on chronic congestive heart failure (HCC)*INVALID FOR* Other instructions from your clinician: Check blood pressure once per day and Saman will call you to obtain the numbers Call Cardiology about the Lasix Prescriptions ordered this encounter Disp Refills Start End INSULIN GLARGINE (U-300) CONC. 300 U* 12/14/2017 Class: Med Update Route: SUBCUTANEOUS Sig: Inject 140 Units subcutaneously every morning. 80 units plus 60 units INSULIN LISPRO (U-100) 100 UNIT/ML S* 12/14/2017 Class: Med Update Route: SUBCUTANEOUS Sig: Inject 30-50 Units subcutaneously w MEALS. PATIENT ASSISTANCE - [facility] Medications Discontinued During This Encounter insulin glargine U-300 conc (TOUJEO * 12 P* 3 11/28/2017 12/14/2017 Route: SUBCUTANEOUS Sig: Inject 150 Units subcutaneously every morning. 80 units plus 70 units Disc: Reason for discontinue is not on file. amLODIPine (NORVASC) 10 mg tablet 30 t* 5 11/24/2017 12/14/2017 Route: ORAL Sig: Take 0.5 tablets by mouth once daily. Disc: Reason for discontinue is not on file. beclomethasone (QVAR) 40 mcg/actuati* 1 In* 0 08/06/2016 12/14/2017 Route: INHALATION Sig: Inhale 2 Puffs as instructed twice daily. Disc: Course of therapy completed insulin lispro (HUMALOG KWIKPEN) 100* 11/24/2017 12/14/2017 Class: Med Update Route: SUBCUTANEOUS Sig: Inject 50 Units subcutaneously w MEALS. PATIENT ASSISTANCE - [facility] Disc: Reason for discontinue is not on file. Follow-up and Disposition History Recorded Encounter Status:Closed by TESHA (PHARMACIST)SAMAN on 12/14/17 PROTEIN+CREATININE Collected: Status: F Source: [place] RATIO,URINE 12/02/2017 9:52 AM [facility] REPOSITORY Order Comment: PROCRE,PTH,CBC,RENAL FOR DR ZACKARY CALDWELL FOR DR SANCHEZ TYPE CODE TESTS RESULT OUT OF RANGE REFERENCE UNITS LAB L501.1200 NO RANGE EST. mg/dL Normal UR CREAT 43.00 LAB L501.1930 <11.9 mg/dL High 312.0 PROTEIN,UR.R AN. LAB L501.1940 0-200 mg/g CRE High PROT:CRE [id number] RATIO Performed By: #### L501.0900 #### [facility] [address] [place], [place], [id number] CBC-COMPLETE BLOOD CNT Collected: 12/02/2017 Status: F Source: ROS[place] NO DIFF 9:51 AM [facility] REPOSITORY Order Comment: PROCRE,PTH,CBC,RENAL FOR DR ZACKARY CALDWELL FOR DR SANCHEZ TYPE CODE TESTS RESULT OUT OF RANGE REFERENCE UNITS LAB L100.1000 4.4-11.0 K/mm3 Normal WBC 6.0 LAB L100.1200 4.6-6.2 M/mm3 Normal RBC 4.98 LAB L100.1300 13.0-16.5 g/dl Normal HGB 13.2 LAB L100.1400 40-54 % Normal HCT 42.2 LAB L100.1500 80-94 fL Normal MCV 84.7 LAB L100.1600 27.0-32.0 pg Low MCH 26.5 LAB L100.1700 32-36 g/gl Low MCHC 31.3 LAB L100.1810 11.6-14.6 % High RDW CV 19.2 LAB L100.1820 35.1-43.9 fl High RDW SD 59.9 LAB L100.1900 150-450 K/mm3 Normal PLT 217 LAB L100.2000 6.2-12.0 fl Normal MPV 10.8 Performed By: #### L100.0500 #### [facility] [address] [place], [place], [address] RENAL PROFILE Collected: 12/02/2017 Status: F Source: [place] 9:51 AM [facility] REPOSITORY Order Comment: PROCRE,PTH,CBC,RENAL FOR DR RAYMUNDO BTNP FOR DR SANCHEZ TYPE CODE TESTS RESULT OUT OF RANGE REFERENCE UNITS LAB L501.0100 74-106 mg/dL High GLU 220 Result Comment: Glucose result greater than or equal to 200 mg/dL suggests DIABETES MELLITUS per A.D.A. criteria. Please note revised GLUCOSE reference range effective 2017. LAB L501.1000 7-18 mg/dL High BUN 22 LAB L501.1100 0.70-1.30 mg/dL High CREAT,SERUM 1.44 Result Comment: The validity of the calculated GFR AND GFRAA in patients over 70 years has not been determined. Clinical correlation is essential. LAB L501.1110 >60 mL/min Low EST GFR 54 Result Comment: Non- GFR Calc LAB L501.1115 >60 mL/min Normal EST GFR - AA 66 Result Comment: GFR Calc LAB L501.1300 10-20 RATIO Normal BUN/CRE 15.3 LAB L501.1800 3.2-5.0 g/dL Low ALB 2.3 LAB L501.2200 8.5-10.1 mg/dL CA Normal 8.6 LAB L501.2300 2.5-4.9 mg/dL Normal PHOS 3.6 LAB L501.5300 136-145 mmol/L NA Normal 138 LAB L501.5600 3.5-5.1 mmol/L K Normal 4.5 Result Comment: Slight Hemolysis, Result may be falsely increased. LAB L501.5900 98-107 mmol/L Normal CL 107 LAB L501.6100 21.0-32.0 mmol/L Normal CO2 22.0 Performed By: #### L500.3600 #### [facility] [address] [place], [address] BNP,B-TYPE NATRIURETIC Collected: 12/02/2017 Status: F Source: [place] PEPTIDE 9:50 AM [facility] REPOSITORY Order Comment: PROCRE,PTH,CBC,RENAL FOR DR ZACKARY MARSHNP FOR DR SANCHEZ TYPE CODE TESTS RESULT OUT OF RANGE REFERENCE UNITS LAB L503.6620 0-100 pg/mL High B-TYPE 160.6 ELICEO PEP Performed By: #### L503.6620, L509.1000 #### [facility] [address] [place], [place], [address] PTHIN Collected: 12/02/2017 Status: F Source: ROSA 9:50 AM [facility] REPOSITORY Order Comment: PROCRE,PTH,CBC,RENAL FOR DR ZACKARY CALDWELL FOR DR SANCHEZ TYPE CODE TESTS RESULT OUT OF RANGE REFERENCE UNITS LAB L509.1000 18.4-80.1 pg/mL High PTHIN 106.8 Performed By: #### L503.6620, L509.1000 #### [facility] [address] [place], [place], [address] CNPN Observed: 11/24/2017 Status: COMPLETED Source: [place] 12:00 AM [facility] REPOSITORY Telephone (PHMEWO) GELACIOJAKE Pruett ([id number]) 1965 M Date Time Provider Department 11/24/17 TESHA (PHARMACIST)SAMAN During your visit today, we recorded the following information about you: YESY PAGAN 11/24/2017 2:05 PM Signed Patient calling stating needs refill of insulin. Prescriptions were sent to [facility] [place], requested to change to [facility] in [place]. Sent. Saman Parkinson, PharmD, [facility] Primary Care Clinical Pharmacist [facility] YESY PAGAN 11/28/2017 9:42 AM Signed Addended by: TESHA (PHARMACIST)SAMAN on: 11/28/2017 09:42 AM Modules accepted: Orders Allergies As of Date: 11/24/2017 Noted Allergy Reaction PRAVACHOL (PRAVASTATIN SODIUM) 08/11/2009 5 - Intolerance Comments: Myalgias/arthralgias. Resolved off med. Date Reviewed: 11/23/2017 Reviewed by: Dominga Stauffer LPN - Fully Assessed Reason for Visit: Refill Request [94] Visit Diagnosis:Uncontrolled type 2 diabetes mellitus with insulin therapy (HCC) [E11.65, Z79.4] Order(s):amLODIPine (NORVASC) 10 mg tabletTake 0.5 tablets by mouth once daily.Disp: 30 tabletRfl: 5 losartan (COZAAR) 100 mg tabletTake 1 tablet by mouth once daily.Disp: 30 tabletRfl: 3 insulin glargine U-300 conc (TOUJEO SOLOSTAR U-300 INSULIN) 300 unit/mL (1.5 mL) inpnInject 150 Units subcutaneously every morning. 80 units plus 70 unitsDisp: 12 PenRfl: 3 Prescriptions as of 11/24/2017 Sig: INSULIN GLARGINE (U-300) CONC* Inject 150 Units subcutaneous* AMLODIPINE 10 MG TABLET Take 0.5 tablets by mouth onc* LOSARTAN 100 MG TABLET Take 1 tablet by mouth once d* X INSULIN LISPRO (U-100) 100 UN* Inject 50 Units subcutaneousl* KLOR-CON M10 MEQ TABLET,EXTEN* Take 1 tablet by mouth once d* FUROSEMIDE 40 MG TABLET Take 1 tablet by mouth twice * FERROUS SULFATE 325 MG (65 MG* TWICE DAILY WITH MEALS PEN NEEDLE, DIABETIC 31 GAUGE* 5 times daily as directed wit* COMPOUNDED PRESCRIPTION Rx compression socks. Name of* OMEPRAZOLE 20 MG CAPSULE,ANAI* TAKE ONE CAPSULE BY MOUTH ONC* INSULIN SYRINGE-NEEDLE U-100 * ALBUTEROL SULFATE HFA 90 MCG/* Inhale 2 Puffs as instructed * ATORVASTATIN 40 MG TABLET Take 1 tablet by mouth daily * CARVEDILOL 25 MG TABLET Take 1 tablet by mouth twice * INSULIN SYRINGE WITH SAFETY N* Use three times daily with re* EASY TOUCH 31 GAUGE X /16 N* Use with meal-time insulin in* BECLOMETHASONE DIPROPIONATE 4* Inhale 2 Puffs as instructed * ASPIRIN 81 MG TABLET,DELAYED * Take 1 tablet by mouth once d* Problem List As Of Date 11/24/2017 Noted Resolved Coronary Artery Disease [I25.10] INVALID FOR* s/p Angioplasty with Stent INVALID FOR* Uncontrolled hypertension [I10] INVALID FOR* More... Hyperlipidemia with target LDL less than 70 [E7*INVALID FOR* Diabetes mellitus (HCC) [E11.9] INVALID FOR*10/15/2013 Proteinuria [R80.9] INVALID FOR* More... Uncontrolled type 2 diabetes mellitus with insu*INVALID FOR* Myocardial infarction (HCC) [I21.9] INVALID FOR* Edema [R60.9] INVALID FOR* MELODIE (obstructive sleep apnea) AHI 11 [G47.33] INVALID FOR* Obesity, Class III, BMI 40-49.9 (morbid obesity*INVALID FOR* Acute on chronic congestive heart failure (HCC)*INVALID FOR* Prescriptions ordered this encounter Disp Refills Start End INSULIN LISPRO (U-100) 100 UNIT/ML S* 10 P* 5 11/24/2017 11/24/2017 Route: SUBCUTANEOUS Sig: Inject 50 Units subcutaneously w MEALS. INSULIN GLARGINE (U-100) 100 UNIT/ML* 10 P* 5 11/24/2017 11/28/2017 Sig: Inject 140 units in the morning. AMLODIPINE 10 MG TABLET 30 t* 5 11/24/2017 Route: ORAL Sig: Take 0.5 tablets by mouth once daily. LOSARTAN 100 MG TABLET 30 t* 3 11/24/2017 Route: ORAL Sig: Take 1 tablet by mouth once daily. INSULIN GLARGINE (U-300) CONC. 300 U* 12 P* 3 11/28/2017 Route: SUBCUTANEOUS Sig: Inject 150 Units subcutaneously every morning. 80 units plus 70 units Medications Discontinued During This Encounter insulin lispro (HUMALOG KWIKPEN) 100* 10 P* 5 11/23/2017 11/24/2017 Route: SUBCUTANEOUS Sig: Inject 50 Units subcutaneously w MEALS. Disc: Reason for discontinue is not on file. insulin glargine (L[place]US SOLOSTAR U-* 10 P* 5 11/23/2017 11/24/2017 Sig: Inject 140 units in the morning. Disc: Reason for discontinue is not on file. amLODIPine (NORVASC) 10 mg tablet 30 t* 5 11/23/2017 11/24/2017 Class: Med Update Route: ORAL Sig: Take 0.5 tablets by mouth once daily. Disc: Reason for discontinue is not on file. losartan (COZAAR) 100 mg tablet 30 t* 3 11/23/2017 11/24/2017 Route: ORAL Sig: Take 1 tablet by mouth once daily. Disc: Reason for discontinue is not on file. insulin glargine (LANTUS SOLOSTAR U-* 10 P* 5 11/24/2017 11/28/2017 Sig: Inject 140 units in the morning. Disc: Reason for discontinue is not on file. Encounter Status:Closed by TESHA (PHARMACIST)SAMAN on 11/24/17 PROGRESS Observed: 11/23/2017 Status: COMPLETED Source: [place] 8:50 AM [facility] REPOSITORY O ID: [id number] Author: Leida Cisneros Service: (none) Author Type: Physician Type: Progress Notes Filed: 11/23/2017 1:14 PM Note Text: Reason for Visit Patient presents with: Established Patient: 3 month follow up- DM, HTN and new dx CHF Jake Blankenship is a 52 year old male who presents here today for Above Complaints.. Health Maintenance BLOOD PRESSURE CONTROLLED DTAP,TDAP,TD(6 - Tdap) COLORECTAL CANCER SCREENING,SEE MODIFIER DILATED RETINAL EXAM INFLUENZA(1) HPI Was admitted in the hospital for 2 days, with CHF, EF was normal at 65 but he had LVH and mild pulmonary hypertension. Mild mitral and tricuspid valve issues. He was started on lasix and here for follow up. Gas been in the hospital for 2 times this summer His hba1c is down to 6.8 form 10.8. He Is taking toujeo 150 units, and then takes 30 to 50 units at lunch time. We are concerned about low sugars, and asked him to watch out for sugars below 70 He has been using his sleep machine but of late not compliant with it No problem-specific Assessment AND Plan notes found for this encounter. PAST MEDICAL HISTORY Diagnosis Date - CHF (congestive heart failure) ([facility]) 10/18/2017 - Diabetes ([facility]) - Hypertension - WI (myocardial infarction) ([facility]) 03-12-09 stent placement - Myocardial infarction ([facility]) 03/16/2014 PAST SURGICAL HISTORY Procedure Laterality Date - CABG (5) VENOUS GRAFTS AND ARTERIAL GRAFT(S) 03/17 - PAST SURGICAL HISTORY OF ORIF LMF with pins - REMOVAL OF TONSILS,<12 Y/O Tonsillectomy FAMILY HISTORY Problem Relation Age of Onset - Cancer Mother Social History Substance Use Topics - Smoking status: Never Smoker - Smokeless tobacco: Former User Quit date: 01/14/2014 - Alcohol use No Past medical history, appointments, medications, allergies reviewed. Pertinent Lab/Diagnostic Studies are reviewed and discussed today Current Outpatient Prescriptions: - KLOR-CON M10 10 mEq tablet - furosemide (LASIX) 40 mg tablet - ferrous sulfate 325 mg (65 mg iron) tablet - omeprazole (PRILOSEC) 20 mg capsule - losartan (COZAAR) 50 mg tablet - insulin lispro (HUMALOG KWIKPEN) 100 unit/mL inpn - amLODIPine (NORVASC) 10 mg tablet - atorvastatin (LIPITOR) 40 mg tablet - carvedilol (COREG) 25 mg tablet - aspirin, enteric coated (ASPIR-81) 81 mg EC tablet - Insulin [place], Disposable, 31 gauge x 1/4 ndle - COMPOUNDED PRESCRIPTION - insulin glargine (TOUJEO SOLOSTAR U-300 INSULIN) 300 unit/mL (1.5 mL) inpn - Insulin Syringe-Needle U-100 1 mL 31 gauge x 5/16 syrg - albuterol HFA (VENTOLIN HFA) 90 mcg/actuation inhaler - insulin syringe,safetyneedle 1 mL 31 gauge x 5/16 syrg - EASY TOUCH 31 gauge x 3/16 ndle - beclomethasone (QVAR) 40 mcg/actuation inhaler Review of Systems CONSTITUTIONAL: No fevers, chills night sweats, unintended weight loss CARDIOVASCULAR: No chest pain, dyspnea, palpitations, orthopnea, PND, ankle edema. PULM: No dyspnea, unexplained cough. GI: No dysphagia/odynophagia, problematic reflux, constipation, diarrhea, changes in stool habits, hematochezia, melena. : No new urinary complaints, including dysuria, gross hematuria or pyuria. NEURO: No new balance problems, peripheral weakness/paresthesias or numbness of concern. HEENT- negative Endo - as per hpi Physical Exam BP 132/62 (BP Site: Right Arm, BP Position: Sitting, BP Cuff Size: Large Adult) Pulse 66 Resp 16 Ht 170.2 cm (5' 7) Wt (!) 152 kg (335 lb) SpO2 95% BMI 52.47 kg/m? PHYSICAL EXAMINATION: General appearance: Well appearing, alert, in no acute distress, well-hydrated, well nourished. Skin: Skin color, texture, turgor normal, no suspicious rashes or lesions Head: Normocephalic, no masses, lesions, tenderness or abnormalities Eyes: Anicteric sclera. Pupils are equally round and reactive to light. Extraocular movements are intact. Ears: External ears normal, canals clear Nose/Sinuses: Nares normal, septum midline, mucosa normal, no drainage or sinus tenderness Oropharynx: Lips, mucosa, and tongue normal, teeth and gums normal, oropharynx congested Neck: Supple, no adenopathy; thyroid symmetric, normal size, no bruits Back: Normal exam Lungs: Lungs clear to auscultation. No wheezing, rhonchi, rales Heart: RRR without murmur, gallop, or rubs. No ectopy Abdomen: Normal abdominal exam, Abdomen soft, non-tender. Bowel sounds normal. No masses, organomegaly Extremities: No deformities, edema, skin discoloration, clubbing or cyanosis. Good capillary refill. Musculoskeletal: No joint swelling, deformity, or tenderness Peripheral pulses: Normal Neuro: Gait normal. Reflexes normal and symmetric. Sensation grossly intact. ASSESSMENT/PLAN: 1. Uncontrolled hypertension - ICD9: 401.9, ICD10: I10 (primary diagnosis) - good control - Recommended regular aerobic exercise. - Recommend home blood pressure monitoring, to bring results in on next visit - Goal of BP <130/80 2. Uncontrolled type 2 diabetes mellitus with insulin therapy (HCC) - ICD9: 250.02, V58.67, ICD10: E11.65, Z79.4 Controlled. - Continue current medications - INSULIN LISPRO (U-100) 100 UNIT/ML SUBCUTANEOUS PEN - HGB A1C 3. Hyperlipidemia with target LDL less than 70 - ICD9: 272.4, ICD10: E78.5 - good control - Continue current medication. 4. MELODIE (obstructive sleep apnea) AHI 11 - ICD9: 327.23, ICD10: G47.33 Emphasized the need to keep the sleep machine on during the night 5. Acute on chronic congestive heart failure, unspecified heart failure type (HCC) - ICD9: 428.0, ICD10: I50.9 He has not still got rid of the 20 pounds of weight likely water weight he gained, might need to get on bumex Will get him set up with care coordination. - BASIC METABOLIC PNL 6. Hospital discharge follow-up - ICD9: V67.59, ICD10: Z09 Will set him up with Lani to help him with chf Medications are updated 7. Hypoglycemia - ICD9: 251.2, ICD10: E16.2 ? Ppt his CHF Spent more than 35 mins with the patient trying to understand what caused the chf, ? Not using the bipap and likely hypoglycemia LEIDA CISNEROS MD CNOV Observed: 11/23/2017 Status: COMPLETED Source: [place] 8:20 AM [facility] REPOSITORY Office Visit (INTMWS) JAKE BLANKENSHIP ([id number]) 1965 M Date Time Provider Department 11/23/17 8:20 AM LEIDA CISNEROS INTMWS During your visit today, we recorded the following information about you: Pulse Respiration Blood pressure Weight 66/minute 16/minute 132/62 152 kg Height 1.702 m LEIDA CISNEROS MD 11/23/2017 1:14 PM Signed Reason for Visit Patient presents with: Established Patient: 3 month follow up- DM, HTN and new dx CHF Jake Blankenship is a 52 year old male who presents here today for Above Complaints.. Health Maintenance BLOOD PRESSURE CONTROLLED DTAP,TDAP,TD(6 - Tdap) COLORECTAL CANCER SCREENING,SEE MODIFIER DILATED RETINAL EXAM INFLUENZA(1) HPI Was admitted in the hospital for 2 days, with CHF, EF was normal at 65 but he had LVH and mild pulmonary hypertension. Mild mitral and tricuspid valve issues. He was started on lasix and here for follow up. Gas been in the hospital for 2 times this summer His hba1c is down to 6.8 form 10.8. He Is taking toujeo 150 units, and then takes 30 to 50 units at lunch time. We are concerned about low sugars, and asked him to watch out for sugars below 70 He has been using his sleep machine but of late not compliant with it No problem-specific Assessment AND Plan notes found for this encounter. PAST MEDICAL HISTORY Diagnosis Date - CHF (congestive heart failure) ([facility]) 10/18/2017 - Diabetes ([facility]) - Hypertension - WI (myocardial infarction) ([facility]) 03-12-09 stent placement - Myocardial infarction ([facility]) 03/16/2014 PAST SURGICAL HISTORY Procedure Laterality Date - CABG (5) VENOUS GRAFTS AND ARTERIAL GRAFT(S) 03/17 - PAST SURGICAL HISTORY OF ORIF LMF with pins - REMOVAL OF TONSILS,<12 Y/O Tonsillectomy FAMILY HISTORY Problem Relation Age of Onset - Cancer Mother Social History Substance Use Topics - Smoking status: Never Smoker - Smokeless tobacco: Former User Quit date: 01/14/2014 - Alcohol use No Past medical history, appointments, medications, allergies reviewed. Pertinent Lab/Diagnostic Studies are reviewed and discussed today Current Outpatient Prescriptions: - KLOR-CON M10 10 mEq tablet - furosemide (LASIX) 40 mg tablet - ferrous sulfate 325 mg (65 mg iron) tablet - omeprazole (PRILOSEC) 20 mg capsule - losartan (COZAAR) 50 mg tablet - insulin lispro (HUMALOG KWIKPEN) 100 unit/mL inpn - amLODIPine (NORVASC) 10 mg tablet - atorvastatin (LIPITOR) 40 mg tablet - carvedilol (COREG) 25 mg tablet - aspirin, enteric coated (ASPIR-81) 81 mg EC tablet - Insulin [place], Disposable, 31 gauge x 1/4 ndle - COMPOUNDED PRESCRIPTION - insulin glargine (TOUJEO SOLOSTAR U-300 INSULIN) 300 unit/mL (1.5 mL) inpn - Insulin Syringe-Needle U-100 1 mL 31 gauge x 5/16 syrg - albuterol HFA (VENTOLIN HFA) 90 mcg/actuation inhaler - insulin syringe,safetyneedle 1 mL 31 gauge x 5/16 syrg - EASY TOUCH 31 gauge x 3/16 ndle - beclomethasone (QVAR) 40 mcg/actuation inhaler Review of Systems CONSTITUTIONAL: No fevers, chills night sweats, unintended weight loss CARDIOVASCULAR: No chest pain, dyspnea, palpitations, orthopnea, PND, ankle edema. PULM: No dyspnea, unexplained cough. GI: No dysphagia/odynophagia, problematic reflux, constipation, diarrhea, changes in stool habits, hematochezia, melena. : No new urinary complaints, including dysuria, gross hematuria or pyuria. NEURO: No new balance problems, peripheral weakness/paresthesias or numbness of concern. HEENT- negative Endo - as per hpi Physical Exam BP 132/62 (BP Site: Right Arm, BP Position: Sitting, BP Cuff Size: Large Adult) Pulse 66 Resp 16 Ht 170.2 cm (5' 7) Wt (!) 152 kg (335 lb) SpO2 95% BMI 52.47 kg/m? PHYSICAL EXAMINATION: General appearance: Well appearing, alert, in no acute distress, well-hydrated, well nourished. Skin: Skin color, texture, turgor normal, no suspicious rashes or lesions Head: Normocephalic, no masses, lesions, tenderness or abnormalities Eyes: Anicteric sclera. Pupils are equally round and reactive to light. Extraocular movements are intact. Ears: External ears normal, canals clear Nose/Sinuses: Nares normal, septum midline, mucosa normal, no drainage or sinus tenderness Oropharynx: Lips, mucosa, and tongue normal, teeth and gums normal, oropharynx congested Neck: Supple, no adenopathy; thyroid symmetric, normal size, no bruits Back: Normal exam Lungs: Lungs clear to auscultation. No wheezing, rhonchi, rales Heart: RRR without murmur, gallop, or rubs. No ectopy Abdomen: Normal abdominal exam, Abdomen soft, non-tender. Bowel sounds normal. No masses, organomegaly Extremities: No deformities, edema, skin discoloration, clubbing or cyanosis. Good capillary refill. Musculoskeletal: No joint swelling, deformity, or tenderness Peripheral pulses: Normal Neuro: Gait normal. Reflexes normal and symmetric. Sensation grossly intact. ASSESSMENT/PLAN: 1. Uncontrolled hypertension - ICD9: 401.9, ICD10: I10 (primary diagnosis) - good control - Recommended regular aerobic exercise. - Recommend home blood pressure monitoring, to bring results in on next visit - Goal of BP <130/80 2. Uncontrolled type 2 diabetes mellitus with insulin therapy (HCC) - ICD9: 250.02, V58.67, ICD10: E11.65, Z79.4 Controlled. - Continue current medications - INSULIN LISPRO (U-100) 100 UNIT/ML SUBCUTANEOUS PEN - HGB A1C 3. Hyperlipidemia with target LDL less than 70 - ICD9: 272.4, ICD10: E78.5 - good control - Continue current medication. 4. MELODIE (obstructive sleep apnea) AHI 11 - ICD9: 327.23, ICD10: G47.33 Emphasized the need to keep the sleep machine on during the night 5. Acute on chronic congestive heart failure, unspecified heart failure type (HCC) - ICD9: 428.0, ICD10: I50.9 He has not still got rid of the 20 pounds of weight likely water weight he gained, might need to get on bumex Will get him set up with care coordination. - BASIC METABOLIC PNL 6. Hospital discharge follow-up - ICD9: V67.59, ICD10: Z09 Will set him up with Lani to help him with chf Medications are updated 7. Hypoglycemia - ICD9: 251.2, ICD10: E16.2 ? Ppt his CHF Spent more than 35 mins with the patient trying to understand what caused the chf, ? Not using the bipap and likely hypoglycemia LEIDA CISNEROS MD Referring Provider: LEIDA CISNEROS [[id number]] Allergies As of Date: 11/23/2017 Noted Allergy Reaction PRAVACHOL (PRAVASTATIN SODIUM) 08/11/2009 5 - Intolerance Comments: Myalgias/arthralgias. Resolved off med. Date Reviewed: 11/23/2017 Reviewed by: Dominga Stauffer LPN - Fully Assessed Reason for Visit: Established Patient [175] Cmt: 3 month follow up- DM, HTN and new dx CHF Primary Visit Diagnosis:Uncontrolled hypertension [I10] Other Visit Diagnoses:Uncontrolled type 2 diabetes mellitus with insulin therapy (HCC) [E11.65, Z79.4] Hyperlipidemia with target LDL less than 70 [E78.5] MELODIE (obstructive sleep apnea) AHI 11 [G47.33] Acute on chronic congestive heart failure, unspecified heart failure type ([facility]) [I50.9] Hospital discharge follow-up [Z09] Hypoglycemia [E16.2] Order(s):insulin lispro (HUMALOG KWIKPEN) 100 unit/mL inpnInject 50 Units subcutaneously w MEALS.Disp: 10 PenRfl: 5 insulin glargine (LANTUS SOLOSTAR U-100 INSULIN) 100 unit/mL (3 mL) inpnInject 140 units in the morning.Disp: 10 PenRfl: 5 BASIC METABOLIC PNL [SQBMP] Order #: [id number] FUTURE amLODIPine (NORVASC) 10 mg tabletTake 0.5 tablets by mouth once daily.Disp: 30 tabletRfl: 5 losartan (COZAAR) 100 mg tabletTake 1 tablet by mouth once daily.Disp: 30 tabletRfl: 3 HGB A1C [CBUUM4A] Order #: [id number] FUTURE BASIC METABOLIC PNL [SQBMP] Order #: [id number] FUTURE Prescriptions as of 11/23/2017 Sig: AMLODIPINE 10 MG TABLET Take 0.5 tablets by mouth onc* KLOR-CON M10 MEQ TABLET,EXTEN* Take 1 tablet by mouth once d* FUROSEMIDE 40 MG TABLET Take 1 tablet by mouth twice * FERROUS SULFATE 325 MG (65 MG* TWICE DAILY WITH MEALS OMEPRAZOLE 20 MG CAPSULE,ANAI* TAKE ONE CAPSULE BY MOUTH ONC* ATORVASTATIN 40 MG TABLET Take 1 tablet by mouth daily * CARVEDILOL 25 MG TABLET Take 1 tablet by mouth twice * ASPIRIN 81 MG TABLET,DELAYED * Take 1 tablet by mouth once d* INSULIN LISPRO (U-100) 100 UN* Inject 50 Units subcutaneousl* INSULIN GLARGINE (U-100) 100 * Inject 140 units in the morni* LOSARTAN 100 MG TABLET Take 1 tablet by mouth once d* PEN NEEDLE, DIABETIC 31 GAUGE* 5 times daily as directed wit* COMPOUNDED PRESCRIPTION Rx compression socks. Name of* INSULIN SYRINGE-NEEDLE U-100 * ALBUTEROL SULFATE HFA 90 MCG/* Inhale 2 Puffs as instructed * INSULIN SYRINGE WITH SAFETY N* Use three times daily with re* EASY TOUCH 31 GAUGE X 3/16 N* Use with meal-time insulin in* BECLOMETHASONE DIPROPIONATE 4* Inhale 2 Puffs as instructed * Problem List As Of Date 11/23/2017 Noted Resolved Coronary Artery Disease [I25.10] INVALID FOR* s/p Angioplasty with Stent INVALID FOR* Uncontrolled hypertension [I10] INVALID FOR* More... Hyperlipidemia with target LDL less than 70 [E7*INVALID FOR* Diabetes mellitus (HCC) [E11.9] INVALID FOR*10/15/2013 Proteinuria [R80.9] INVALID FOR* More... Uncontrolled type 2 diabetes mellitus with insu*INVALID FOR* Myocardial infarction (HCC) [I21.9] INVALID FOR* Edema [R60.9] INVALID FOR* MELODIE (obstructive sleep apnea) AHI 11 [G47.33] INVALID FOR* Obesity, Class III, BMI 40-49.9 (morbid obesity*INVALID FOR* Acute on chronic congestive heart failure (HCC)*INVALID FOR* Prescriptions ordered this encounter Disp Refills Start End INSULIN LISPRO (U-100) 100 UNIT/ML S* 10 P* 5 11/23/2017 Route: SUBCUTANEOUS Sig: Inject 50 Units subcutaneously w MEALS. INSULIN GLARGINE (U-100) 100 UNIT/ML* 10 P* 5 11/23/2017 Sig: Inject 140 units in the morning. AMLODIPINE 10 MG TABLET 30 t* 5 11/23/2017 Class: Med Update Route: ORAL Sig: Take 0.5 tablets by mouth once daily. LOSARTAN 100 MG TABLET 30 t* 3 11/23/2017 Route: ORAL Sig: Take 1 tablet by mouth once daily. Medications Discontinued During This Encounter insulin glargine (TOUJEO SOLOSTAR U-* 12 P* 3 09/06/2017 11/23/2017 Route: SUBCUTANEOUS Sig: Inject 150 Units subcutaneously every morning. 80 units plus 70 units Disc: Reason for discontinue is not on file. insulin lispro (HUMALOG KWIKPEN) 100* 08/05/2017 11/23/2017 Class: Med Update Route: SUBCUTANEOUS Sig: Inject 50 Units subcutaneously w MEALS. Disc: Reason for discontinue is not on file. losartan (COZAAR) 50 mg tablet 11/23/2017 Class: Historical Med Route: ORAL Sig: Take 50 mg by mouth once daily. Disc: Reason for discontinue is not on file. amLODIPine (NORVASC) 10 mg tablet 30 t* 5 04/11/2017 11/23/2017 Cmt: This prescription was filled on 03/17/2017. Any refills authorized will be placed on file. Route: ORAL Sig: Take 1 tablet by mouth once daily. Disc: Reason for discontinue is not on file. Follow-up and Disposition History Recorded Encounter Status:Closed by LEIDA CISNEROS MD on 11/23/17 STRESS REPORT Observed: 11/22/2017 Status: F Source: [place] 5:32 PM [facility] REPOSITORY [facility] Cardiovascular Services [address] [place] [address] MR#: [id number] Acct: [id number] Name: JAKE BLANKENSHIP Rep #: [id number] : 1965 52 From: Piero Sanchez MD Primary Care: Leida Cisneros MD Status: REG CLI Ordering Dr: Sex: M C Stress Test Report Pharmacologic myocardial perfusion stress test. 52-year-old man with a history of coronary artery disease status post carotid bypass surgery in 2013. Medications aspirin, Lipitor, Coreg, amlodipine, losartan. Stress protocol: Resting EKG demonstrates sinus rhythm with rate of 61 bpm. Resting blood pressure is 156/90 mmHg. 0.4 mg of regadenoson was infused per usual protocol followed by rapid intravenous saline flush injection continuous EKG monitoring was performed. Patient maintained sinus rhythm throughout the recording. T-wave inversions were noted in V2 and V3 the maximum heart rate attained was 73 bpm which was 43% of maximum predicted heart rate the maximum workload attained was 1 metabolic equivalent. At rest there were no ST or T-wave changes noted to suggest abnormal flow reserve at peak infusion no ST or T- wave changes were noted to suggest abnormal flow reserve. Myocardial perfusion protocol. 14.9 mCi of technetium 99m sestamibi was injected at rest. 0.4 mg regadenoson was infused per usual protocol peak infusion 44.8 mCi of technetium 99m sestamibi was injected stress images were obtained stress and rest images were reconstructed and compared in the short axis vertical and horizontal long axis. Gated images were also obtained pre- Perfusion SPECT analysis: Review of the stress images demonstrate a normal cardiac silhouette size. The anterior wall and septum appeared well perfused. There is a small perfusion defect noted in the apex in the basal inferolateral wall also has a small perfusion defect. These defects appear to be present on the stress and rest images to a similar extent and may suggest previous infarct involving the apex as well as the basal inferolateral wall. No ischemia is noted. Gated SPECT analysis: The gated ejection fraction by gated SPECT is 43%. Conclusion: Pharmacologic myocardial perfusion stress test with no evidence of ischemia. 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 Mildly reduced left ventricular ejection fraction by gated SPECT. 11/22/17 1732 <Electronically signed by Piero Sanchez MD> Date Piero Sanchez MD CC: Leida Cisneros MD; Piero Sanchez MD Date Dictated: 11/21/17917 Date Transcribed: 11/21/17917 Time Buyer: CO Signed OT D/C OF NON Observed: 11/17/2017 Status: F Source: [facility] PT 8:48 AM [facility] REPOSITORY [facility] Occupational Therapy [facility] [address] [place] [address] Fax REHABILITATION SERVICES DISCHARGE SUMMARY MR#: [id number] Acct: [id number] Name: JAKE BLANKENSHIP Rep #: [id number] : 1965 52 From: Adele SIMPSON/Isreal, CHT Referring Dr.: Leida Cisneros MD Status: REG RCR Eval Date: Discharge Date: HP - Discharge Summary - Patient Information JAKE BLANKENSHIP was seen in my office for initial evaluation on 09/29/17. The following Plan of Care was established for this patient: Initial Frequency: 1x/Week Initial Duration: 2 Weeks - Anticipated Interventions Anticipated Interventions: Manual Lymph Drainage, Education re Life-long lymphedema Management, Education re Correct Donning Tech,Care AND Wearing Sched Comp Garments, Home Program This patient was last seen in our office 09/29/17. Pertinent comments regarding their Occupational therapy will appear below: phone call from Ct from [employer] ON 10/12/2017 - states [facility] pt insurance does not pay for compression socks. Pt is going to try to save money to pay for [place] wrap/ compression socks and use them with his compression pump. At this time pt has not scheduled any further apts and is D/C at this time. [ End ] At this point I will be discontinuing this patient from occupational therapy. I would be happy to see this patient again in the future if found appropriate by the physician. Thank you! Adele Smith, OTR/L, CHT <Electronically signed by Adele Smith OTR/L, CHT> 11/17/17 0848 CC: Leida Cisneros MD MK Signed CARDIOLOGY VISIT Observed: 11/02/2017 Status: F Source: [facility] REPORT 3:18 PM [facility] REPOSITORY [facility] [address] [place] [address] OFFICE VISIT Date of Service: 11/02/17 MR#: [id number] Acct: [id number] Name: JAKE BLANKENSHIP Rep #: [id number] : 1965 Provider: Piero Sanchez MD Age/Sex: 52/M Location: [facility] [place] [place] Status: Signed HPI HPI Details: JAKE BLANKENSHIP, is a 52 M who presents to the office today for an initial visit. He is a gentleman with a history of coronary artery disease status post carotid bypass surgery 5 in 2013. He also has a history of hypertension hyperlipidemia diabetes mellitus and obesity. He was previously being followed up in [place] and more recently he is gotten more short of breath. He did present to the emergency room here in [place] with shortness of breath which appeared to be decompensated heart failure. An echocardiogram was performed with demonstrated ejection fraction of 65% with pulmonary systolic pressure of 44 mmHg there was mild left atrial enlargement and left ventricular hypertrophy. He was subsequently discharged home with some changes in his blood pressure medications. He presents here for an initial evaluation. He denies any chest pain though he has had some shortness of breath he has not had any paroxysmal nocturnal dyspnea he does have pedal edema and also wears compression stockings. He has not had any neck arm or jaw discomfort to suggest angina. Intake Vital Signs11/02/17 Height 5 ft 7 in Intake Visit Reasons: ER 7-17 for CHF, cardiac Hx, trans from [facility] Allergies pravastatin sodium [From Pravachol] Adverse Reaction (Intermediate, Verified 11/02/17 11:09) muscle aches Medications Aspirin [Aspirin, Baby] 81 mg PO DAILY@0800 10/16/15 [History Confirmed 11/02/17] Atorvastatin Calcium [Lipitor] 40 mg PO QHS 10/16/15 [History Confirmed 11/02/17] Carvedilol [Coreg (Beta William)] 25 mg PO BID 08/29/17 [History Confirmed 11/02/17] Insulin Glargine,Hum.rec.anlog [Toujeo Solostar] 150 unit SQ DAILY 08/29/17 [History Confirmed 11/02/17] Insulin Lispro [Humalog Tyree Kwikpen] 50 unit SQ TIDCM 08/29/17 [History Confirmed 11/02/17] Omeprazole [Prilosec] 20 mg PO DAILY 08/29/17 [History Confirmed 11/02/17] Ferrous Sulfate 325 mg PO BIDCM #60 tab 10/19/17 [Rx Confirmed 11/02/17] Furosemide [Lasix] 40 mg PO BID #60 tab 10/19/17 [Rx Confirmed 11/02/17] Potassium Chloride [K-Dur] 10 meq PO DAILY #30 tab 10/19/17 [Rx Confirmed 11/02/17] amlodipine 5 mg tablet 5 mg PO QDAY #90 tab 11/02/17 [Rx Confirmed 11/02/17] losartan 100 mg tablet 100 mg PO QDAY #90 tab 11/02/17 [Rx Confirmed 11/02/17] FOR[facility]LY [facility], [facility] Medical History Acute diastolic (congestive) heart failure (Chronic) Left ventricular hypertrophy (Chronic) Secondary pulmonary arterial hypertension (Chronic) Atherosclerosis of coronary artery bypass graft without angina pectoris (Chronic) Hypertension (Chronic) Lymphedema of left leg (Chronic) Morbid obesity (Chronic) Hyperlipidemia (Chronic) Diabetes mellitus out of control (Chronic) Left leg cellulitis (Chronic) Anemia (Chronic) CKD (chronic kidney disease) stage 2, GFR 60-89 ml/min (Chronic) GERD (gastroesophageal reflux disease) (Chronic) Morbid obesity (Chronic) MELODIE (obstructive sleep apnea) (Chronic) Old myocardial infarction (Chronic) Prostatism (Chronic) Type 2 diabetes mellitus (Chronic) History of MRSA infection (Resolved) Surgical History H/O coronary artery bypass surgery (Resolved 03/2014) History of coronary artery stent placement (Resolved) History of open reduction and internal fixation (ORIF) procedure (Resolved) History of tonsillectomy (Resolved) Family History Father Hypertension Social History Smoking Status: Never smoker ROS Const Const: Positive for fatigue; negative for weakness, difficulty sleeping, frequent falls, excessive sweating or headache(s) Eyes Eyes: Negative for loss of peripheral vision, transient loss of vision, blurry vision, tunnel vision or double vision ENT ENT: Negative for headache(s), dizziness, Nosebleed/epistaxis or balance problems Cardio Chest Pain: Yes (Notes chest pain and abdominal pain with increase ambulation/bloating pain) Onset: exercise Location: mid sternal, epigastric Duration: continuous Relieving: rest Palpitations: No Edema: Bilateral (Chronic LLE edema. BLE edema) Muscle aches with walking: None Resp Respiratory: Positive for SOB with activity (Notes more SOB with activity in the morning) and paroxysmal nocturnal dyspnea (Wakes up gasping for air and SOB. Has to sleep in [place]. ); negative for SOB at rest, SOB orthopnea\SOB lying down or Cough GI GI: Positive for bloating; negative nausea, black,tarry stools, vomiting or heartburn : Negative for hematuria Musc Musc: Positive for joint pain; negative for balance problems, muscle aches/ myalgia or muscle weakness Skin Skin: Negative non-healing lesions, unusual bruising or rash Neuro Neuro: Negative for weakness, frequent falls, headache(s), blurry vision, double vision, dizziness, lightheadedness, orthostatic symptoms, near syncope, syncope or lack of coordination Jordan Hematologic/Lymphatic: Negative for easy bruising or easy bleeding Endo Endo: Positive for fatigue; negative for excessive sweating or increased thirst/drinking Psych Psych: Negative for anxiety or depression Allergy Allergy/Immunology: Negative for hives, Negative for rash Cardiology Exam Const Appearance: cooperative, healthy appearing, well developed, well groomed and no acute distress Nutritional Appearance: well nourished and average body habitus Orientation: alert, awake and oriented x3 Head Head: normal to inspection, normocephalic and atraumatic Ears: hearing grossly normal bilaterally and external ears normal Nose: external nose normal, nasal mucous membranes and turbinates normal, nares normal, septum normal, no nasal discharge Face and Sinus: face symmetric Mouth: oral mucosae normal, tongue normal, oropharynx normal and moist mucous membranes Teeth and gingiva: dentition normal Throat: posterior oropharynx normal, tonsils normal and uvula midline Eyes General: appearance normal, both eyes and all related structures Eyelids: eyelids normal Conjunctivae: conjunctivae normal Pupils: PERRL, normal by confrontation and accommodation normal EOM: EOM intact bilaterally Neck Neck: normal visual inspection, trachea midline and no JVD JVD: +5 Carotids: normal carotid upstroke and bounding pulses Chest Chest inspection: normal inspection of the chest, symmetric chest movement and normal respiratory effort Auscultation: Bilateral: Clear to Auscultation Cardio Palpation: normal PMI Rate: regular rate Rhythm: regular rhythm Heart sounds: S1 normal, S2 normal and normal, physiologic split S2; negative rub, gallop or murmur GI GI: normal to inspection, soft, no hepatosplenomegaly and bowel sounds present Neuro General: alert, awake, oriented x3, no focal sensory deficit, gait normal and moves all extremities Skin Skin: no rashes or lesions noted Extremities Pulses: Normal: Right Femoral Pulse, Left Femoral Pulse, Right Dorsalis Pedis Pulse, Left Dorsalis Pedis Pulse, Right Posterior Tibial Pulse, Left Posterior Tibial Pulse, Right Radial Pulse, Left Radial Pulse Lower Extremity Edema: None: Bilateral Musculoskel Musculoskeletal: No joint tenderness Psych Psychological: normal affect Assessment AND Plan 1. Acute diastolic (congestive) heart failure I50.31 Plan He does have a history of heart failure with preserved ejection fraction my recommendation was for him to continue the diuretics at the current dose but his pedal edema is likely exacerbated by the amlodipine and my recommendation will be to reduce the amlodipine to 5 mg a day and to increase his losartan to 100 mg a day. An echocardiogram should be performed to reassess his ventricular function. Orders Orders: 2. H/O coronary artery bypass surgery Z95.1 CABG x 5 03/2014 [place] Plan He does have a history of coronary artery disease status post carotid bypass surgery he has not had any evidence of angina but the concern is whether his shortness of breath is an anginal equivalent a myocardial perfusion scan should be performed to exclude ischemia as a potential etiology. Orders Orders: 3. Hypertension I10 Plan He does have a history of hypertension which appears to be fairly well controlled I would however suggest that we make some changes to his medication by increasing his losartan to 100 mg a day and reducing his amlodipine to 5 mg a day. We will continue to follow him to see how he does. Thank you for allowing me to participate in the care of your patient. Please don't hesitate to call if any issues arise Plan Detail Other Medications New: Discontinued: Follow Up 3 Months (r) Coding Level of Care Code Off vis,new,level 5 Diagnoses Acute diastolic (congestive) heart failure I50.31 H/O coronary artery bypass surgery Z95.1 Hypertension I10 Coding Level of Care Code Off vis,new,level 5 Diagnoses Acute diastolic (congestive) heart failure I50.31 H/O coronary artery bypass surgery Z95.1 Hypertension I10 11/02/17 1618 <Electronically signed by Piero Sanchez MD> Date Piero Sanchez MD Cosigner Signature: Date (if applicable) CC: Leida Cisneros MD BASIC METABOLIC PANL Collected: 11/02/2017 Status: F Source: [place] 9:07 AM [facility] [facility] REPOSITORY TYPE CODE TESTS RESULT OUT OF REFERENCE UNITS RANGE LAB GLU 74-99 mg/dL High Glucose 168 Result Comment: The [place] [employer] (ADA) provides guidance for cutoff values for fasting glucose and random glucose. The ADA defines fasting as no caloric intake for at least 8 hours. Fas ting plasma glucose results between 100 to 125 mg/dL indicate increased risk for diabetes (prediabetes). Fasting plasma glucose results greater than or equal to 126 mg/dL meet the criteria for diagnosis of diabetes. In the absence of unequivocal hyperglycemia, results should be confirmed by repeat testing. In a patient with classic symptoms of hyperglycemia or hyperglycemic crisis, random plasma glucose results greater than or equal to 200 mg/dL meet the criteria for diagnosis of diabetes. Reference: Standards of Medical Care in Diabetes 2016, [place] [employer] Association. Diabetes Care. 2016.39(Suppl 1). LAB BUN 9-24 mg/dL BUN 18 LAB CRET 0.73-1.22 mg/dL Creatinine High 1.35 LAB NA 136-144 mmol/L Sodium 137 LAB K 3.7-5.1 mmol/L Potassium 4.3 LAB CL 97-105 mmol/L Chloride 101 LAB CO2 22-30 mmol/L CO2 24 LAB AGAP 9-18 mmol/L Anion Gap 12 LAB CA 8.5-10.2 mg/dL Calcium, Total 8.9 LAB GFRAA eGFR- Amer. >60 LAB GFRNAA . eGFR-All Other Races 55 Result Comment: eGFR (Estimated GFR) Units of measure: mL/min/1.73 meters squared eGFR is derived from the reexpressed MDRD Study equation using the following parameters: serum creatinine, age, gender and race. The creatinine assay has been calibrated to be traceable to IDMS. An eGFR <60 mL/min/1.73m2 for >3 months is consistent with chronic kidney disease. Refer to KDOQI guidelines for clinical interpretation. In patients with unstable renal function, e.g. those with acute kidney injury, the eGFR may not accurately reflect actual GFR. Performed By: #### BMP #### [facility] [address], [place] [address] PROGRESS Observed: 11/02/2017 Status: COMPLETED Source: [place] 8:16 AM [facility] REPOSITORY O ID: [id number] Author: Joce (Warehousing Technician) Fletcher Service: (none) Author Type: Nurse Practitioner Type: Progress Notes Filed: 11/02/2017 10:00 AM Note Text: CC: Patient presents with: Hospital F/U [facility] Jake Blankenship is a 52 year old male who presents today with for [facility] follow up from 10/18 to 10/19/17. Patient initially presented to ER with complaints of worsening SOB x3 weeks, orthopnea, increased bilateral lower extremity edema and swelling of bilateral hands. Work up including: EKG showed NSR HR 64. CBC showed mild anemia H/H 9.3/31.0, elevated creatinine 1.32 and BNP elevation at 261.3. CXR showed cardiomegaly and mild CHF. Patient was given Lasix and nitro paste in ER and admitted for further evaluation of new onset CHF. Echo completed showing cardiomegaly with vascular congestion and mild CHF, LVEF 65%. Patient was then discharged home on Lasix 40 BID, Iron supplements BID and Potassium 10meq daily. Instructions given for daily weights and compression stockings bilaterally. And instructed to wear compression stockings to help reduce swelling. Since returning home patient reports continued SOB with exertion, specifically extended ambulation and orthopnea, currently sleeping in recliner. Intermittent cough and notes some chest tingling with prolonged exertion. Denies chest pain, wheezing, dizziness, lightheadedness, abdominal pain, constipation or black or bloody stool on iron supplements. Continues to have BLE edema L>R, but reports significant improvement. Weighing himself daily, no weight gain noted- reports he is down ~4lbs since admission. Watching fluid intake, drinking mostly water and some diet pop. Still has productive cough. REVIEW OF SYSTEMS General: no fevers, no chills, no night sweats, no recurrent infections, no change in appetite and no significant changes in weight Respiratory: no wheezing, no hemoptysis, See HPI Cardiovascular: no chest pain, no palpitations and See HPI GI: No nausea, vomiting, or diarrhea and Constipation : No history of dysuria, frequency or incontinence Neurologic: No headache, weakness, numbness, tingling, neck stiffness, tremor, vertigo, dizziness, memory loss, syncope. PAST MEDICAL HISTORY Diagnosis Date - Diabetes ([facility]) - Hypertension - [place] (myocardial infarction) ([facility]) 03-12-09 stent placement - Myocardial infarction ([facility]) 03/16/2014 PAST SURGICAL HISTORY Procedure Laterality Date - CABG (5) VENOUS GRAFTS AND ARTERIAL GRAFT(S) 03/17 - PAST SURGICAL HISTORY OF ORIF LMF with pins - REMOVAL OF TONSILS,<12 Y/O Tonsillectomy ALLERGIES Pravachol [Pravastatin Sodium] MEDICATIONS ferrous sulfate 325 mg (65 mg iron) tablet TWICE DAILY WITH MEALS KLOR-CON M10 10 mEq tablet furosemide (LASIX) 40 mg tablet 1 tablet twice daily. COMPOUNDED PRESCRIPTION Rx compression socks. Name of the company- [employer] 20-30 mm compression Natural rubber gripper toe Model # 503 X-short omeprazole (PRILOSEC) 20 mg capsule TAKE ONE CAPSULE BY MOUTH ONCE DAILY losartan (COZAAR) 50 mg tablet Take 50 mg by mouth once daily. insulin glargine (TOUJEO SOLOSTAR U-300 INSULIN) 300 unit/mL (1.5 mL) inpn Inject 150 Units subcutaneously every morning. 80 units plus 70 units Insulin Syringe-Needle U-100 1 mL 31 gauge x 5/16 syrg insulin lispro (HUMALOG KWIKPEN) 100 unit/mL inpn Inject 50 Units subcutaneously w MEALS. albuterol HFA (VENTOLIN HFA) 90 mcg/actuation inhaler Inhale 2 Puffs as instructed every 4 hours as needed for Wheezing/Shortness of Breath. Insulin [place], Disposable, 31 gauge x 1/4 ndle amLODIPine (NORVASC) 10 mg tablet Take 1 tablet by mouth once daily. atorvastatin (LIPITOR) 40 mg tablet Take 1 tablet by mouth daily at bedtime. For cholesterol. carvedilol (COREG) 25 mg tablet Take 1 tablet by mouth twice daily with meals. insulin syringe,safetyneedle 1 mL 31 gauge x 5/16 syrg Use three times daily with regular insulin EASY TOUCH 31 gauge x 3/16 ndle Use with meal-time insulin injections five times daily. beclomethasone (QVAR) 40 mcg/actuation inhaler Inhale 2 Puffs as instructed twice daily. aspirin, enteric coated (ASPIR-81) 81 mg EC tablet Take 1 tablet by mouth once daily. FAMILY HISTORY Problem Relation Age of Onset - Cancer Mother Social History Substance Use Topics - Smoking status: Never Smoker - Smokeless tobacco: Former User Quit date: 01/14/2014 - Alcohol use No PHYSICAL EXAM BP 148/78 Pulse 72 Resp 14 Wt (!) 147 kg (324 lb) BMI 50.75 kg/m? General Appearance: well appearing, in no acute distress, alert Skin: Skin color, texture, turgor normal for age; Head: normocephalic, atraumatic Eyes: conjunctiva pink and moist, no icterus, sclera white, non-injected Lungs: Lungs clear to auscultation. No wheezing, rhonchi, rales Heart: RRR without murmur, gallop, or rubs. No ectopy Bilateral Lower Extremities: No deformities, Pulses: 2+, Edema: Bilateral non-pitting L>R, compression stocking on LLE BLOOD PRESSURE CONTROLLED due on 1981 DTAP,TDAP,TD(6 - Tdap) due on 07/30/1987 COLORECTAL CANCER SCREENING,SEE MODIFIER due on 2013 DILATED RETINAL EXAM due on 04/26/2017 STATIN MED ADHERENCE due on 11/02/2017 DIABETES MED ADHERENCE due on 11/02/2017 INFLUENZA(1) due on 12/03/2017 LDL CHOLESTEROL due on 02/02/2018 HBA1C due on 05/04/2018 DIABETIC FOOT EXAM due on 06/01/2018 ANNUAL PCP TEAM CHRONIC DISEASE VISIT due on 09/16/2018 ONE PNEUMOVAX PRIOR TO AGE 65 Completed HEPATITIS C SCREENING Completed ASSESSMENT/PLAN: 1. Acute on chronic congestive heart failure, unspecified heart failure type (HCC) - ICD9: 428.0, ICD10: I50.9 (primary diagnosis) - Improving - Continue lasix and potassium supplement, repeat BMP consider lowering lasix dose pending laboratory results - Continue daily weights, notify office of 5lb or greater weight gain in 24 hours - Recommend compression stockings bilaterally during the day, discussed with patient and family - Informational handout on CHF provided to patient as this is a new diagnosis - Strongly recommend patient resume use of CPAP at night - Follow up with cardiology today as scheduled - Routine follow up with PCP as scheduled 2. Bilateral lower extremity edema - ICD9: 782.3, ICD10: R60.0 - Continue lasix as prescribed - Consider decreasing vs discontinuing Norvasc and increasing losartan dosing - Elevate legs a much as possible and compression stocking bilaterally 3. Elevated blood pressure reading with diagnosis of hypertension - ICD9: 401.9, ICD10: I10 - suboptimal control - Continue current medication(s), consider increasing Losartan dosing and decreasing Norvasc given patient's BLE edema - Check BMP - Encouraged dietary sodium restriction/DASH diet - Recommended regular aerobic exercise. - Recheck in 1 month, sooner should new symptoms or problems arise. - Goal of BP <140/90 - Recommended no refined sugar, low refined starch, healthy oil intake (olive oil), healthy protein (fish) along the lines of the Mediterranean diet. 4. Anemia, unspecified type - ICD9: 285.9, ICD10: D64.9 - Continue Iron supplements as prescribed at [facility], repeat blood work in 6-8 weeks - CBC - Routine follow up with PCP as scheduled Joce Fletcher, [employer] Prescription instructions reviewed with patient as applicable. Potential red flag symptoms discussed with the patient. Reviewed appropriate action plan to take if red flag symptoms occur. Patient agreeable to treatment plan. CNOV Observed: 11/02/2017 Status: COMPLETED Source: [place] 8:00 AM [facility] REPOSITORY Office Visit (INTMWS) JAKE BLANKENSHIP ([id number]) 1965 M Date Time Provider Department 11/02/17 8:00 AM JOCE STEINER (ALEX) INTMWS During your visit today, we recorded the following information about you: Pulse Respiration Blood pressure Weight 72/minute 14/minute 144/76 147 kg Joce Steiner APRN.CNP 11/02/2017 10:00 AM Signed CC: Patient presents with: [facility] F/U [facility] Jake Flynn Blankenship is a 52 year old male who presents today with for [facility] follow up from 10/18 to 10/19/17. Patient initially presented to ER with complaints of worsening SOB x3 weeks, orthopnea, increased bilateral lower extremity edema and swelling of bilateral hands. Work up including: EKG showed NSR HR 64. CBC showed mild anemia H/H 9.3/31.0, elevated creatinine 1.32 and BNP elevation at 261.3. CXR showed cardiomegaly and mild CHF. Patient was given Lasix and nitro paste in ER and admitted for further evaluation of new onset CHF. Echo completed showing cardiomegaly with vascular congestion and mild CHF, LVEF 65%. Patient was then discharged home on Lasix 40 BID, Iron supplements BID and Potassium 10meq daily. Instructions given for daily weights and compression stockings bilaterally. And instructed to wear compression stockings to help reduce swelling. Since returning home patient reports continued SOB with exertion, specifically extended ambulation and orthopnea, currently sleeping in recliner. Intermittent cough and notes some chest tingling with prolonged exertion. Denies chest pain, wheezing, dizziness, lightheadedness, abdominal pain, constipation or black or bloody stool on iron supplements. Continues to have BLE edema L>R, but reports significant improvement. Weighing himself daily, no weight gain noted- reports he is down ~4lbs since admission. Watching fluid intake, drinking mostly water and some diet pop. Still has productive cough. REVIEW OF SYSTEMS General: no fevers, no chills, no night sweats, no recurrent infections, no change in appetite and no significant changes in weight Respiratory: no wheezing, no hemoptysis, See HPI Cardiovascular: no chest pain, no palpitations and See HPI GI: No nausea, vomiting, or diarrhea and Constipation : No history of dysuria, frequency or incontinence Neurologic: No headache, weakness, numbness, tingling, neck stiffness, tremor, vertigo, dizziness, memory loss, syncope. PAST MEDICAL HISTORY Diagnosis Date - Diabetes ([facility]) - Hypertension - WI (myocardial infarction) ([facility]) 03-12-09 stent placement - Myocardial infarction ([facility]) 03/16/2014 PAST SURGICAL HISTORY Procedure Laterality Date - CABG (5) VENOUS GRAFTS AND ARTERIAL GRAFT(S) 03/17 - PAST SURGICAL HISTORY OF ORIF LMF with pins - REMOVAL OF TONSILS,<12 Y/O Tonsillectomy ALLERGIES Pravachol [Pravastatin Sodium] MEDICATIONS ferrous sulfate 325 mg (65 mg iron) tablet TWICE DAILY WITH MEALS KLOR-CON M10 10 mEq tablet furosemide (LASIX) 40 mg tablet 1 tablet twice daily. COMPOUNDED PRESCRIPTION Rx compression socks. Name of the company- [employer] 20-30 mm compression Natural rubber gripper toe Model # 503 X-short omeprazole (PRILOSEC) 20 mg capsule TAKE ONE CAPSULE BY MOUTH ONCE DAILY losartan (COZAAR) 50 mg tablet Take 50 mg by mouth once daily. insulin glargine (TOUJEO SOLOSTAR U-300 INSULIN) 300 unit/mL (1.5 mL) inpn Inject 150 Units subcutaneously every morning. 80 units plus 70 units Insulin Syringe-Needle U-100 1 mL 31 gauge x 5/16 syrg insulin lispro (HUMALOG KWIKPEN) 100 unit/mL inpn Inject 50 Units subcutaneously w MEALS. albuterol HFA (VENTOLIN HFA) 90 mcg/actuation inhaler Inhale 2 Puffs as instructed every 4 hours as needed for Wheezing/Shortness of Breath. Insulin [place], Disposable, 31 gauge x 1/4 ndle amLODIPine (NORVASC) 10 mg tablet Take 1 tablet by mouth once daily. atorvastatin (LIPITOR) 40 mg tablet Take 1 tablet by mouth daily at bedtime. For cholesterol. carvedilol (COREG) 25 mg tablet Take 1 tablet by mouth twice daily with meals. insulin syringe,safetyneedle 1 mL 31 gauge x 5/16 syrg Use three times daily with regular insulin EASY TOUCH 31 gauge x 3/16 ndle Use with meal-time insulin injections five times daily. beclomethasone (QVAR) 40 mcg/actuation inhaler Inhale 2 Puffs as instructed twice daily. aspirin, enteric coated (ASPIR-81) 81 mg EC tablet Take 1 tablet by mouth once daily. FAMILY HISTORY Problem Relation Age of Onset - Cancer Mother Social History Substance Use Topics - Smoking status: Never Smoker - Smokeless tobacco: Former User Quit date: 01/14/2014 - Alcohol use No PHYSICAL EXAM BP 148/78 Pulse 72 Resp 14 Wt (!) 147 kg (324 lb) BMI 50.75 kg/m? General Appearance: well appearing, in no acute distress, alert Skin: Skin color, texture, turgor normal for age; Head: normocephalic, atraumatic Eyes: conjunctiva pink and moist, no icterus, sclera white, non-injected Lungs: Lungs clear to auscultation. No wheezing, rhonchi, rales Heart: RRR without murmur, gallop, or rubs. No ectopy Bilateral Lower Extremities: No deformities, Pulses: 2+, Edema: Bilateral non-pitting L>R, compression stocking on LLE BLOOD PRESSURE CONTROLLED due on 1981 DTAP,TDAP,TD(6 - Tdap) due on 07/30/1987 COLORECTAL CANCER SCREENING,SEE MODIFIER due on 2013 DILATED RETINAL EXAM due on 04/26/2017 STATIN MED ADHERENCE due on 11/02/2017 DIABETES MED ADHERENCE due on 11/02/2017 INFLUENZA(1) due on 12/03/2017 LDL CHOLESTEROL due on 02/02/2018 HBA1C due on 05/04/2018 DIABETIC FOOT EXAM due on 06/01/2018 ANNUAL PCP TEAM CHRONIC DISEASE VISIT due on 09/16/2018 ONE PNEUMOVAX PRIOR TO AGE 65 Completed HEPATITIS C SCREENING Completed ASSESSMENT/PLAN: 1. Acute on chronic congestive heart failure, unspecified heart failure type (HCC) - ICD9: 428.0, ICD10: I50.9 (primary diagnosis) - Improving - Continue lasix and potassium supplement, repeat BMP consider lowering lasix dose pending laboratory results - Continue daily weights, notify office of 5lb or greater weight gain in 24 hours - Recommend compression stockings bilaterally during the day, discussed with patient and family - Informational handout on CHF provided to patient as this is a new diagnosis - Strongly recommend patient resume use of CPAP at night - Follow up with cardiology today as scheduled - Routine follow up with PCP as scheduled 2. Bilateral lower extremity edema - ICD9: 782.3, ICD10: R60.0 - Continue lasix as prescribed - Consider decreasing vs discontinuing Norvasc and increasing losartan dosing - Elevate legs a much as possible and compression stocking bilaterally 3. Elevated blood pressure reading with diagnosis of hypertension - ICD9: 401.9, ICD10: I10 - suboptimal control - Continue current medication(s), consider increasing Losartan dosing and decreasing Norvasc given patient's BLE edema - Check BMP - Encouraged dietary sodium restriction/DASH diet - Recommended regular aerobic exercise. - Recheck in 1 month, sooner should new symptoms or problems arise. - Goal of BP <140/90 - Recommended no refined sugar, low refined starch, healthy oil intake (olive oil), healthy protein (fish) along the lines of the Mediterranean diet. 4. Anemia, unspecified type - ICD9: 285.9, ICD10: D64.9 - Continue Iron supplements as prescribed at [facility], repeat blood work in 6-8 weeks - CBC - Routine follow up with PCP as scheduled Joce Steiner APRN.[employer] Prescription instructions reviewed with patient as applicable. Potential red flag symptoms discussed with the patient. Reviewed appropriate action plan to take if red flag symptoms occur. Patient agreeable to treatment plan. Referring Provider: SELF [[id number]] Allergies As of Date: 11/02/2017 Noted Allergy Reaction PRAVACHOL (PRAVASTATIN SODIUM) 08/11/2009 5 - Intolerance Comments: Myalgias/arthralgias. Resolved off med. Date Reviewed: 10/03/2017 Reviewed by: Sanjuanita Jackson Ma - Fully Assessed Reason for Visit: Hospital F/U [57] Primary Visit Diagnosis:Acute on chronic congestive heart failure, unspecified heart failure type (HCC) [I50.9] Other Visit Diagnoses:Bilateral lower extremity edema [R60.0] Elevated blood pressure reading with diagnosis of hypertension [I10] Anemia, unspecified type [D64.9] Order(s):[facility] [[facility]] Order #: [id number] FUTURE Prescriptions as of 11/02/2017 Sig: FERROUS SULFATE 325 MG (65 MG* TWICE DAILY WITH MEALS KLOR-CON M10 MEQ TABLET,EXTEN* FUROSEMIDE 40 MG TABLET 1 tablet twice daily. COMPOUNDED PRESCRIPTION Rx compression socks. Name of* OMEPRAZOLE 20 MG CAPSULE,ANAI* TAKE ONE CAPSULE BY MOUTH ONC* LOSARTAN 50 MG TABLET Take 50 mg by mouth once malcom* INSULIN GLARGINE (U-300) 300 * Inject 150 Units subcutaneous* INSULIN SYRINGE-NEEDLE U-100 * INSULIN LISPRO (U-100) 100 UN* Inject 50 Units subcutaneousl* ALBUTEROL SULFATE HFA 90 MCG/* Inhale 2 Puffs as instructed * AMLODIPINE 10 MG TABLET Take 1 tablet by mouth once d* ATORVASTATIN 40 MG TABLET Take 1 tablet by mouth daily * CARVEDILOL 25 MG TABLET Take 1 tablet by mouth twice * INSULIN SYRINGE WITH SAFETY N* Use three times daily with re* EASY TOUCH 31 GAUGE X 3/16 N* Use with meal-time insulin in* BECLOMETHASONE DIPROPIONATE 4* Inhale 2 Puffs as instructed * ASPIRIN 81 MG TABLET,DELAYED * Take 1 tablet by mouth once d* PEN NEEDLE, DIABETIC 31 GAUGE* Problem List As Of Date 11/02/2017 Noted Resolved Coronary Artery Disease [I25.10] INVALID FOR* s/p Angioplasty with Stent INVALID FOR* Uncontrolled hypertension [I10] INVALID FOR* More... Hyperlipidemia with target LDL less than 70 [E7*INVALID FOR* Diabetes mellitus (HCC) [E11.9] INVALID FOR*10/15/2013 Proteinuria [R80.9] INVALID FOR* More... Uncontrolled type 2 diabetes mellitus with insu*INVALID FOR* Myocardial infarction (HCC) [I21.9] INVALID FOR* Edema [R60.9] INVALID FOR* MELODIE (obstructive sleep apnea) AHI 11 [G47.33] INVALID FOR* Obesity, Class III, BMI 40-49.9 (morbid obesity*INVALID FOR* Acute on chronic congestive heart failure (HCC)*INVALID FOR* Encounter Status:Closed by JOCE STEINER CNP on 11/02/17 PROGRESS Observed: 11/01/2017 Status: COMPLETED Source: [place] 9:30 AM [facility] [place] REPOSITORY [facility] ID: [id number] Author: Saman Parkinson (Pharmacist) Service: (none) Author Type: Pharmacist Type: Progress Notes Filed: 11/01/2017 10:55 AM Note Text: Patient consents to pharmacy collaborative practice agreement. REASON FOR CONSULT: DM? GOALS: A1c <?8% CONSULTING PROVIDER: Dr. Cisneros?? Date of Consult: 02/2017 Jake Blankenship is a 52 year old male was last seen in [facility] by PCP, Dr. LEIDA CISNEROS MD on 09/16/17. Patient is presenting today for F/U pharmacotherapy management appointment for dm. At last PharmD visit on 09/06 no medication changes were made INTERIM HISTORY: Admitted for CHF at [facility], and discharged on 10/19 Has f/u with Booth Operator at [facility] tomorrow Feeling ok, still having some LE swelling Reports BGs are better Likes being off the metformin, less GI issues Past DM medications: Metformin held at [facility] in September Empagliflozin held at [facility] in September Current DM Medications: Insulin glargine 300 units/mL 150 units QAM Insulin lispro 50 units TID meals Current HTN Medications: Amlodipine 10mg once daily Carvedilol 25mg BID Losartan 50mg once daily Preventative Medications: ? On GEENA/ARB: Yes ? On Statin: Yes ? On ASA: Yes ROS: ? Patient denies CP, SOB, PEREZ, blurred vision, dizziness or lightheadedness ? Patient denies symptoms of hypoglycemia (sweating, anxiety, palpitations, hunger, and tremor) ? Patient denies symptoms of hyperglycemia (polyuria, polydipsia, polyphagia) ? Patient denies potential medication adverse effects DIET/EXERCISE/SOCIAL Hx: ? Denies any changes ? Watching what he is eating MEDICATIONS: ? Pill bottles are not?present. ? Adherence: denies?missed doses. ? Pharmacy: [facility]? Rx coverage: [employer] ? Affordability: no issues ? Diabetes supplies: [employer] ? Organization System: pillbox ACTIVE PROBLEM LIST Coronary Artery Disease S/P Angioplasty With Stent Uncontrolled Hypertension Hyperlipidemia With Target Ldl Less Than 70 Proteinuria Uncontrolled Type 2 Diabetes Mellitus With Insulin Therapy (Hcc) Myocardial Infarction (Hcc) Edema MELODIE (obstructive sleep apnea) AHI 11 Obesity, Class Iii, Bmi 40-49.9 (Morbid Obesity) ([facility]) PAST MEDICAL HISTORY Diagnosis Date - Diabetes ([facility]) - Hypertension - [place] (myocardial infarction) ([facility]) 03-12-09 stent placement - Myocardial infarction ([facility]) 03/16/2014 ALLERGIES Allergen Reactions - Pravachol [Pravasta* Intolerance Myalgias/arthralgias. Resolved off med. Medication List Medication Directions Comments Action/Plan albuterol HFA (VENTOLIN HFA) 90 mcg/actuation inhaler Inhale 2 Puffs as instructed every 4 hours as needed for Wheezing/Shortness of Breath. PRN amLODIPine (NORVASC) 10 mg tablet Take 1 tablet by mouth once daily. taking aspirin, enteric coated (ASPIR-81) 81 mg EC tablet Take 1 tablet by mouth once daily. taking atorvastatin (LIPITOR) 40 mg tablet Take 1 tablet by mouth daily at bedtime. For cholesterol. taking beclomethasone (QVAR) 40 mcg/actuation inhaler Inhale 2 Puffs as instructed twice daily. taking carvedilol (COREG) 25 mg tablet Take 1 tablet by mouth twice daily with meals. taking COMPOUNDED PRESCRIPTION Rx compression socks. Name of the company- [employer] 20-30 mm compression Natural rubber gripper toe Model # 503 X-short EASY TOUCH 31 gauge x 3/16 ndle Use with meal-time insulin injections five times daily. insulin glargine (TOUJEO SOLOSTAR U-300 INSULIN) 300 unit/mL (1.5 mL) inpn Inject 150 Units subcutaneously every morning. 80 units plus 70 units taking insulin lispro (HUMALOG KWIKPEN) 100 unit/mL inpn Inject 50 Units subcutaneously w MEALS. taking Insulin [place], Disposable, 31 gauge x 1/4 ndle None Entered insulin syringe,safetyneedle 1 mL 31 gauge x 5/16 syrg Use three times daily with regular insulin Insulin Syringe-Needle U-100 1 mL 31 gauge x 5/16 syrg None Entered losartan (COZAAR) 50 mg tablet Take 50 mg by mouth once daily. taking Not taking D/C omeprazole (PRILOSEC) 20 mg capsule TAKE ONE CAPSULE BY MOUTH ONCE DAILY taking Rx meds not listed in EPIC: ferrous sulfate BID, potassium 10 meq once daily, furosemide 40mg BID OTCs: none Herbals: none GLYCEMIC CONTROL: ? Glucometer present at visit: No ? Reports FBGs 90 - 170 ? Just a couple over 200 ? Hypoglycemia: denies VITALS: BP 144/58 Pulse 64 Last 3 Encounter BP Readings: Date: BP: 09/16/2017 130/70 09/06/2017 130/73 08/23/2017 124/64 Wt: 141.6 kg (312 lb 1.9 oz) BMI: 48.88 kg/(m2) LABS Lab Results Component Value Date HBA1C 8.8 09/14/2017 HBA1C 10.8 05/30/2017 HBA1C 9.9 02/02/2017 CMP: 09/14/2017 10/22/2017 ([facility]) Glucose 166 124 BUN 13 15 Creatinine 1.28 1.35 Sodium 134 142 Potassium 4.7 4.0 Chloride 101 107 CO2 23 27 Protein, Total 7.9 Albumin 3.1 Calcium 9.0 8.3 Alkaline Phosphatase 127 Bilirubin, Total 0.2 AST 29 ALT 30 GFR 58 Estimated Creatinine Clearance: 89.9 mL/min (A) (based on SCr of 1.28 mg/dL (H)). Last Lipid Panel Lab Results Component Value Date CHOL 135 02/02/2017 Lab Results Component Value Date HDL 29 02/02/2017 Lab Results Component Value Date LDL 62 02/02/2017 Lab Results Component Value Date TG 219 02/02/2017 Albumin/Creat Ratio (mg/g) Date Value 02/02/2017 1,727 (H) PHARMACOTHERAPY ASSESSMENT/PLAN: 1. Uncontrolled type 2 diabetes mellitus with insulin therapy (HCC) - ICD9: 250.02, V58.67, ICD10: E11.65, Z79.4 (primary diagnosis) A1c goal < 8%, patient is not at goal but improving (8.8% on 09/14). FBGs reported mostly at goal. Patient compliant with and tolerating current regimen. Will continue current regimen at this time and make further adjustments with more BG data. Renal fxn improved (could re-initiate metformin but patient reluctant d/t feeling better without it, will continue to hold for now) and LFTs WNL and appropriate for continued therapy ? CONTINUE insulin glargine 150 units QAM, lispro 50 units TID meals ? Instructed patient to continue checking BGs, bring glucometer to next visit 2. Uncontrolled hypertension - ICD9: 401.9, ICD10: I10 BP goal <?140/90, pt is not at goal on current therapy. Tolerating and compliant with therapy. D/t LE swelling could reduce dose of amlodipine and increase losartan dose. Patient seeing [facility] Cardiology tomorrow, will have him discuss with them. Continue regimen at this time. Renal fxn and K+ WNL. Need to recheck K+ one month after being on therapy. ? CONTINUE losartan 50mg, amlodipine 10mg once daily and carvedilol 25mg BID - BASIC METABOLIC PNL Health Maintenance issues addressed: DILATED RETINAL EXAM due on 04/26/2017 Patient is scheduled to see PCP 11/23. Joce Steiner CNP tomorrow Cardiology at [facility] tomorrow Patient to return to clinic for PharmD f/u on 12/14. Patient verbalized understanding of instructions. Saman Parkinson, PharmD, BCPS CNOV Observed: 11/01/2017 Status: COMPLETED Source: [place] 9:30 AM [facility] REPOSITORY Office Visit (PHMEWO) RUBÉNRICCOJAKE Pruett ([id number]) 1965 M Date Time Provider Department 11/01/17 9:30 AM TESHA (PHARMACIST)SAMAN During your visit today, we recorded the following information about you: Pulse Blood pressure 64/minute 144/58 YESY PAGAN 11/01/2017 10:55 AM Signed Patient consents to pharmacy collaborative practice agreement. REASON FOR CONSULT: DM? GOALS: A1c <?8% CONSULTING PROVIDER: Dr. Cisneros?? Date of Consult: 02/2017 Jake Blankenship is a 52 year old male was last seen in [facility] by PCP, Dr. LEIDA CISNEROS MD on 09/16/17. Patient is presenting today for F/U pharmacotherapy management appointment for dm. At last PharmD visit on 09/06 no medication changes were made INTERIM HISTORY: Admitted for CHF at [facility], and discharged on 10/19 Has f/u with Booth Operator at [facility] tomorrow Feeling ok, still having some LE swelling Reports BGs are better Likes being off the metformin, less GI issues Past DM medications: Metformin held at [facility] in September Empagliflozin held at [facility] in September Current DM Medications: Insulin glargine 300 units/mL 150 units QAM Insulin lispro 50 units TID meals Current HTN Medications: Amlodipine 10mg once daily Carvedilol 25mg BID Losartan 50mg once daily Preventative Medications: ? On GEENA/ARB: Yes ? On Statin: Yes ? On ASA: Yes ROS: ? Patient denies CP, SOB, PEREZ, blurred vision, dizziness or lightheadedness ? Patient denies symptoms of hypoglycemia (sweating, anxiety, palpitations, hunger, and tremor) ? Patient denies symptoms of hyperglycemia (polyuria, polydipsia, polyphagia) ? Patient denies potential medication adverse effects DIET/EXERCISE/SOCIAL Hx: ? Denies any changes ? Watching what he is eating MEDICATIONS: ? Pill bottles are not?present. ? Adherence: denies?missed doses. ? Pharmacy: [facility]? Rx coverage: [employer] ? Affordability: no issues ? Diabetes supplies: [employer] ? Organization System: [employer] ACTIVE PROBLEM LIST Coronary Artery Disease S/P Angioplasty With Stent Uncontrolled Hypertension Hyperlipidemia With Target Ldl Less Than 70 Proteinuria Uncontrolled Type 2 Diabetes Mellitus With Insulin Therapy ([facility]) Myocardial Infarction ([facility]) Edema MELODIE (obstructive sleep apnea) AHI 11 Obesity, Class Iii, Bmi 40-49.9 (Morbid Obesity) ([facility]) PAST MEDICAL HISTORY Diagnosis Date - Diabetes ([facility]) - Hypertension - [place] (myocardial infarction) ([facility]) 03-12-09 stent placement - Myocardial infarction ([facility]) 03/16/2014 ALLERGIES Allergen Reactions - Pravachol [Pravasta* Intolerance Myalgias/arthralgias. Resolved off med. Medication List Medication Directions Comments Action/Plan albuterol HFA (VENTOLIN HFA) 90 mcg/actuation inhaler Inhale 2 Puffs as instructed every 4 hours as needed for Wheezing/Shortness of Breath. PRN amLODIPine (NORVASC) 10 mg tablet Take 1 tablet by mouth once daily. taking aspirin, enteric coated (ASPIR-81) 81 mg EC tablet Take 1 tablet by mouth once daily. taking atorvastatin (LIPITOR) 40 mg tablet Take 1 tablet by mouth daily at bedtime. For cholesterol. taking beclomethasone (QVAR) 40 mcg/actuation inhaler Inhale 2 Puffs as instructed twice daily. taking carvedilol (COREG) 25 mg tablet Take 1 tablet by mouth twice daily with meals. taking COMPOUNDED PRESCRIPTION Rx compression socks. Name of the company- [employer] 20-30 mm compression Natural rubber gripper toe Model # 503 X-short EASY TOUCH 31 gauge x 3/16 ndle Use with meal-time insulin injections five times daily. insulin glargine (TOUJEO SOLOSTAR U-300 INSULIN) 300 unit/mL (1.5 mL) inpn Inject 150 Units subcutaneously every morning. 80 units plus 70 units taking insulin lispro (HUMALOG KWIKPEN) 100 unit/mL inpn Inject 50 Units subcutaneously w MEALS. taking Insulin [place], Disposable, 31 gauge x 1/4 ndle None Entered insulin syringe,safetyneedle 1 mL 31 gauge x 5/16 syrg Use three times daily with regular insulin Insulin Syringe-Needle U-100 1 mL 31 gauge x 5/16 syrg None Entered losartan (COZAAR) 50 mg tablet Take 50 mg by mouth once daily. taking Not taking D/C omeprazole (PRILOSEC) 20 mg capsule TAKE ONE CAPSULE BY MOUTH ONCE DAILY taking Rx meds not listed in EPIC: ferrous sulfate BID, potassium 10 meq once daily, furosemide 40mg BID OTCs: none Herbals: none GLYCEMIC CONTROL: ? Glucometer present at visit: No ? Reports FBGs 90 - 170 ? Just a couple over 200 ? Hypoglycemia: denies VITALS: BP 144/58 Pulse 64 Last 3 Encounter BP Readings: Date: BP: 09/16/2017 130/70 09/06/2017 130/73 08/23/2017 124/64 Wt: 141.6 kg (312 lb 1.9 oz) BMI: 48.88 kg/(m2) LABS Lab Results Component Value Date HBA1C 8.8 09/14/2017 HBA1C 10.8 05/30/2017 HBA1C 9.9 02/02/2017 CMP: 09/14/2017 10/22/2017 ([facility]) Glucose 166 124 BUN 13 15 Creatinine 1.28 1.35 Sodium 134 142 Potassium 4.7 4.0 Chloride 101 107 CO2 23 27 Protein, Total 7.9 Albumin 3.1 Calcium 9.0 8.3 Alkaline Phosphatase 127 Bilirubin, Total 0.2 AST 29 ALT 30 GFR 58 Estimated Creatinine Clearance: 89.9 mL/min (A) (based on SCr of 1.28 mg/dL (H)). Last Lipid Panel Lab Results Component Value Date CHOL 135 02/02/2017 Lab Results Component Value Date HDL 29 02/02/2017 Lab Results Component Value Date LDL 62 02/02/2017 Lab Results Component Value Date TG 219 02/02/2017 Albumin/Creat Ratio (mg/g) Date Value 02/02/2017 1,727 (H) PHARMACOTHERAPY ASSESSMENT/PLAN: 1. Uncontrolled type 2 diabetes mellitus with insulin therapy (HCC) - ICD9: 250.02, V58.67, ICD10: E11.65, Z79.4 (primary diagnosis) A1c goal < 8%, patient is not at goal but improving (8.8% on 09/14). FBGs reported mostly at goal. Patient compliant with and tolerating current regimen. Will continue current regimen at this time and make further adjustments with more BG data. Renal fxn improved (could re-initiate metformin but patient reluctant d/t feeling better without it, will continue to hold for now) and LFTs WNL and appropriate for continued therapy ? CONTINUE insulin glargine 150 units QAM, lispro 50 units TID meals ? Instructed patient to continue checking BGs, bring glucometer to next visit 2. Uncontrolled hypertension - ICD9: 401.9, ICD10: I10 BP goal <?140/90, pt is not at goal on current therapy. Tolerating and compliant with therapy. D/t LE swelling could reduce dose of amlodipine and increase losartan dose. Patient seeing [facility] Cardiology tomorrow, will have him discuss with them. Continue regimen at this time. Renal fxn and K+ WNL. Need to recheck K+ one month after being on therapy. ? CONTINUE losartan 50mg, amlodipine 10mg once daily and carvedilol 25mg BID - BASIC METABOLIC PNL Health Maintenance issues addressed: DILATED RETINAL EXAM due on 04/26/2017 Patient is scheduled to see PCP 11/23. Joce Steiner CNP tomorrow Cardiology at [facility] tomorrow Patient to return to clinic for PharmD f/u on 12/14. Patient verbalized understanding of instructions. Saman Parkinson, VikasD, BCPS Referring Provider: LEIDA CISNEROS [[id number]] Allergies As of Date: 11/01/2017 Noted Allergy Reaction PRAVACHOL (PRAVASTATIN SODIUM) 08/11/2009 5 - Intolerance Comments: Myalgias/arthralgias. Resolved off med. Date Reviewed: 10/03/2017 Reviewed by: Sanjuanita Jackson Ma - Fully Assessed Reason for Visit: Allied Health Visit [5] Cmt: DM follow-up Primary Visit Diagnosis:Uncontrolled type 2 diabetes mellitus with insulin therapy (HCC) [E11.65, Z79.4] Other Visit Diagnosis:Uncontrolled hypertension [I10] Order(s):BASIC METABOLIC PNL [SQBMP] Order #: [id number] FUTURE furosemide (LASIX) 40 mg tablet1 tablet twice daily.Disp: Rfl: Prescriptions as of 11/01/2017 Sig: FERROUS SULFATE 325 MG (65 MG* TWICE DAILY WITH MEALS KLOR-CON M10 MEQ TABLET,EXTEN* FUROSEMIDE 40 MG TABLET 1 tablet twice daily. OMEPRAZOLE 20 MG CAPSULE,ANAI* TAKE ONE CAPSULE BY MOUTH ONC* LOSARTAN 50 MG TABLET Take 50 mg by mouth once malcom* INSULIN GLARGINE (U-300) 300 * Inject 150 Units subcutaneous* INSULIN LISPRO (U-100) 100 UN* Inject 50 Units subcutaneousl* AMLODIPINE 10 MG TABLET Take 1 tablet by mouth once d* ATORVASTATIN 40 MG TABLET Take 1 tablet by mouth daily * CARVEDILOL 25 MG TABLET Take 1 tablet by mouth twice * BECLOMETHASONE DIPROPIONATE 4* Inhale 2 Puffs as instructed * ASPIRIN 81 MG TABLET,DELAYED * Take 1 tablet by mouth once d* COMPOUNDED PRESCRIPTION Rx compression socks. Name of* INSULIN SYRINGE-NEEDLE U-100 * ALBUTEROL SULFATE HFA 90 MCG/* Inhale 2 Puffs as instructed * PEN NEEDLE, DIABETIC 31 GAUGE* INSULIN SYRINGE WITH SAFETY N* Use three times daily with re* EASY TOUCH 31 GAUGE X 3/16 N* Use with meal-time insulin in* Problem List As Of Date 11/01/2017 Noted Resolved Coronary Artery Disease [I25.10] INVALID FOR* s/p Angioplasty with Stent INVALID FOR* Uncontrolled hypertension [I10] INVALID FOR* More... Hyperlipidemia with target LDL less than 70 [E7*INVALID FOR* Diabetes mellitus (HCC) [E11.9] INVALID FOR*10/15/2013 Proteinuria [R80.9] INVALID FOR* More... Uncontrolled type 2 diabetes mellitus with insu*INVALID FOR* Myocardial infarction (HCC) [I21.9] INVALID FOR* Edema [R60.9] INVALID FOR* MELODIE (obstructive sleep apnea) AHI 11 [G47.33] INVALID FOR* Obesity, Class III, BMI 40-49.9 (morbid obesity*INVALID FOR* Prescriptions ordered this encounter Disp Refills Start End FUROSEMIDE 40 MG TABLET 11/01/2017 Class: Med Update Si tablet twice daily. Medications Discontinued During This Encounter meloxicam (MOBIC) 15 mg tablet 30 t* 0 07/22/2017 11/01/2017 Route: ORAL Sig: Take 1 tablet by mouth once daily as needed. Take with food. Patient not taking: Reported on 10/03/2017 Disc: Course of therapy completed furosemide (LASIX) 40 mg tablet 10/19/2017 11/01/2017 Class: Historical Med Sig: Disc: Reason for discontinue is not on file. Encounter Status:Closed by TESHA (PHARMACIST)SAMAN on 11/01/17 HEMOGLOBIN A1C Collected: 11/01/2017 Status: F Source: [place] 8:49 AM [facility] REPOSITORY TYPE CODE TESTS RESULT OUT OF REFERENCE UNITS RANGE LAB HGBA1C 4.3-5.6 % High Hemoglobin A1c 6.8 LAB HBA0 mg/dL Est. Average Glucose 148 Result Comment: eAG: (Estimated average glucose) is a calculated value from HgbA1c and is insurance service representative of the average blood glucose level in the last 2-3 month period. Performed By: #### HBA1C #### [facility] [address] [place], [place] [address] 12 LEAD ELECTROCARDIOGRAM Observed: 10/27/2017 Status: F Source: [place] 12:36 PM [facility] REPOSITORY [facility] Cardiovascular Services [address] [place] [address] 12 Lead EKG 10/18/17 1013 MR#: [id number] Acct: [id number] Name: RUBÉNJESSIE CHACKOTEAGAN Pruett Rep #: [id number] : 1965 52 From: Yovanny Lima MD Attending Dr: Minesh Quijano MD Status: DIS IN Ordering Dr: Butch Sabillon DO Date: 10/18/17 Location: [facility] Sex: M C Admitted: 10/18/17 Test Reason : SOB Blood Pressure : / mmHG Vent. Rate : 064 BPM Atrial Rate : 064 BPM P-R Int : 156 ms QRS Dur : 100 ms QT Int : 458 ms P-R-T Axes : 039 077 114 degrees QTc Int : 472 ms Normal sinus rhythm Nonspecific T wave abnormality Prolonged QT Abnormal ECG When compared with ECG of 03-OCT-2017 16:10, Left posterior fascicular block is no longer Present T wave inversion more evident in Lateral leads Confirmed by YOVANNY LIMA ([id number]), online content editor JUVENTINO RAY ([id number]) on 10/27/2017 12:35:31 PM Referred By: DEREK Confirmed By:YOVANNY LIMA 10/27/17 1235 Date Yovanny Lima MD CC: Leida Cisneros MD; Minesh Quijano MD; Butch Sabillon DO Signed BASIC METABOLIC Collected: 10/22/2017 Status: F Source: [place] PROFILE (BMP) 11:20 AM [facility] REPOSITORY Order Comment: Send Results To: pcp Reason for Laboratory Test new lasix therapy, potassium TYPE CODE TESTS RESULT OUT OF RANGE REFERENCE UNITS LAB L501.0100 74-106 mg/dL High GLU 124 Result Comment: Fasting Glucose result from 100 to 125 mg/dL suggests IMPAIRED HOMEOSTASIS per A.D.A. criteria. Please note revised GLUCOSE reference range effective 2017. LAB L501.1000 7-18 mg/dL Normal BUN 15 LAB L501.1100 0.70-1.30 mg/dL High CREAT,SERUM 1.35 Result Comment: The validity of the calculated GFR AND GFRAA in patients over 70 years has not been determined. Clinical correlation is essential. LAB L501.1110 >60 mL/min Low EST GFR 58 Result Comment: Non- GFR Calc LAB L501.1115 >60 mL/min Normal EST GFR - AA 71 Result Comment: GFR Calc LAB L501.1300 10-20 RATIO Normal BUN/CRE 11.1 LAB L501.2200 8.5-10.1 mg/dL Low CA 8.3 LAB L501.5300 136-145 mmol/L NA Normal 142 LAB L501.5600 3.5-5.1 mmol/L K Normal 4.0 Result Comment: Slight Hemolysis, Result may be falsely increased. LAB L501.5900 98-107 mmol/L Normal CL 107 LAB L501.6100 21.0-32.0 mmol/L Normal CO2 27.0 LAB L501.6200 5-15 Normal 8 GAP Performed By: #### L500.2500 #### [facility] [address] [place], [address] DISCHARGE SUMMARY Observed: 10/19/2017 Status: F Source: [place] 5:02 PM [facility] REPOSITORY [facility] Medical Records Department [address] [place] [address] Discharge Summary 10/19/17 1616 MR#: [id number] Acct: [id number] Name: JAKE BLANKENSHIP Rep #: [id number] : 1965 52 From: Tolu CANO PCP: Leida Cisneros MD Status: DIS IN Y Location: [facility] [id number] <Tolu Agudelo - Last Filed: 10/19/17 16:33> Discharge Date and Diagnosis Date of Admission: 10/18/17 Date of Discharge: 10/19/17 - Primary Discharge Diagnosis Acute diastolic CHF exacerbation T2DM HLD CAD with prior cABG HTN GERD MELODIE anemia with iron deficiency - Secondary Discharge Diagnosis Chronic Problems (Last Updated 10/18/17 @ 14:22 by Butch Schmitz DO) Edema of left lower extremity (Chronic) Left leg swelling (Chronic) Lymphedema of left leg (Chronic) Coronary artery arteriosclerosis (Chronic) Morbid obesity (Chronic) Benign essential hypertension (Chronic) Hyperlipidemia (Chronic) Diabetes mellitus out of control (Chronic) Chronic venous insufficiency (Chronic) GERD (gastroesophageal reflux disease) (Chronic) Prostatism (Chronic) Hospital Course and Treatment Imaging Results: Echo: Interpretation Summary Moderate concentric left ventricular hypertrophy. The estimated ejection fraction is 65 %. Normal diastology for age. The left atrium is severely enlarged. Mild (1+) mitral valve insufficiency. Trivial tricuspid valve insufficiency. Right ventricular systolic pressure estimated to be 44 mmHg. There is no comparison study available. RAD/Chest PA and Lateral IMPRESSION: Cardiomegaly. Vascular congestion and mild CHF. Blunting of both costophrenic angles posteriorly. Operations: None Procedures: 2-D Echocardiogram Summary of Care Provided: Physical exam on day of discharge: General: Resting comfortably NAD Psych: A/Ox3 normal affect HEENT: PEARRLA AT PA Neck: Supple NT CV: RRR no m/t/r/g/h Resp: CTA Abd: [id number] Soft NT no guarding or rigidity Ext: DP2+= 1+ pitting edema BLE Skin: W/D normal turgor Lymph/Heme: No active bleeding or adenopathy Neuro: CN2-12 intact Hospital course: The patient is a 52 year old M with a hx of CAD with prior CABG patient at [facility], hx HTN, dmt2, MELODIE not using CPAP at home, GERD, morbid obesity, who presented to the ER with chief complaint of SOB progressive over 3 week and worse with exertion along with orthopnea and PND, sleeping in a recliner and with increased LE edema. He came to the ER and was found to have elevated BNP, CXR c/w CHF. He was admitted to the PCU on tele for acute CHF exacerbation. He was placed on 40 BID IV lasix. He improved overnight very well and had decreased LE edema, and improved tolerance for physical activity. Echo was obtained showing preserved EF at 65% and mild pulmonary htn with rvsp 44 mmHg, 1+ MVI, severely enlarged LA. He was transitioned to PO lasix at 40 BID with 10 meq of K daily. He desired to go home as he was feeling significantly better and not requiring O2. Lipid panel was at goal with LDL of 60. He was anemic with microcytosis - iron panel showed deficiency so he was started on PO iron. He will need a BMP in 3-5 days and close follow up with his PCP to assess the effectiveness of his new meds. 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 I advised him to schedule an appointment with Dr. Sanchez here in 2 weeks. He was discharged home in stable condition. This patient was seen by Tolu Agudelo PA-C under the supervision of Doctor Samm. [] Discharge Diet: Low fat/ Low Cholesterol, 1800 Calorie Control Diet, 2000 mg Sodium Diet Discharge Activity: Return to Normal Activity Home Medications: Medications to take at Discharge Amlodipine [Norvasc] 10 mg PO DAILY 10/16/15 Aspirin [Aspirin, Baby] 81 mg PO DAILY@0800 10/16/15 Atorvastatin Calcium [Lipitor] 40 mg PO QHS 10/16/15 Carvedilol [Coreg (Beta William)] 25 mg PO BID 08/29/17 Insulin Glargine,Hum.rec.anlog [Toujeo Solostar] 150 unit SQ DAILY 08/29/17 Insulin Lispro [Humalog Tyree Kwikpen] 50 unit SQ TIDCM 08/29/17 Omeprazole [Prilosec] 20 mg PO DAILY 08/29/17 Losartan Potassium [Cozaar] 50 mg PO DAILY 10/18/17 Ferrous Sulfate 325 mg PO BIDCM #60 tab 10/19/17 Furosemide [Lasix] 40 mg PO BID #60 tab 10/19/17 Potassium Chloride [K-Dur] 10 meq PO DAILY #30 tab 10/19/17 Following Prescrptions Were Given to Patient: Ferrous Sulfate 325 mg PO BIDCM #60 tab Furosemide [Lasix] 40 mg PO BID #60 tab Potassium Chloride [K-Dur] 10 meq PO DAILY #30 tab Primary Care Physician: Leida Cisneros MD [Primary Care Provider] - Please follow up with your Primary Care Physician in: 2 weeks Please Follow Up With: Piero Sanchez MD When: 2 weeks Additional Instructions: Check and record daily weights. Call PCP if >4 lb increase in one day. Compression socks daily. Disposition: Home Minutes spent on discharge:: 40 Patient Condition:: Stable Medical Necessity - Tobacco Use Smoking Status: Never smoker Tobacco Use: Non-smoker Meaningful Use Info Meaningful Use Diagnoses (Choose all that apply): CHF - CHF GEENA/ARB ordered at discharge?: Yes Documented LVEF (%): 65 <Minesh Quijano - Last Filed: 10/19/17 17:01> Discharge Date and Diagnosis - Secondary Discharge Diagnosis Chronic Problems (Last Updated 10/18/17 @ 14:22 by Butch Schmitz DO) Edema of left lower extremity (Chronic) Left leg swelling (Chronic) Lymphedema of left leg (Chronic) Coronary artery arteriosclerosis (Chronic) Morbid obesity (Chronic) Benign essential hypertension (Chronic) Hyperlipidemia (Chronic) Diabetes mellitus out of control (Chronic) Chronic venous insufficiency (Chronic) GERD (gastroesophageal reflux disease) (Chronic) Prostatism (Chronic) Hospital Course and Treatment Summary of Care Provided: This patient was seen in conjunction with Tolu Agudelo PA-C . I have independently interviewed and examined the patient and reviewed pertinent historical, laboratory, and other data. Please refer to Tolu Agudelo PA-C note for details of this patient's presentation, findings, and recommendations. I have reviewed Tolu Agudelo PA-C note and concur with documented findings. In brief, patient is a 52-year-old gentleman admitted with progressive shortness of breath and assessment of acute congestive heart failure made admitted to a monitored bed managed per protocol Assessment: 1. Acute diastolic CHF exacerbation 2. Diabetes mellitus type 2 3. CAD with previous CABG 4. Dyslipidemia 5. Essential hypertension 6. GERD 7. Obstructive sleep apnea 8. Anemia secondary to anemia of chronic disorder Hospital course: As elicited above by Tolu Agudelo PA-C Total time spent on discharge process; 45 minute Code Visit Inpatient E AND M: 52018 Disch Hosp 10/19/17 1633 <Electronically signed by Tolu CANO> Date Tolu CANO 10/19/17 1702<Electronically signed by Minesh Quijano MD> Cosigner Signature (if applicable): Date Minesh Quijano MD CC: JEROME Agudelo; Leida Cisneros MD; Minesh Quijano MD Signed DISCHARGE INSTRUCTION Observed: 10/19/2017 Status: F Source: [place] 11:30 AM [facility] REPOSITORY [facility] Medical Records Department [address] [place] [address] Instructions for Home/Discharge Instructions 10/19/17 1126 MR#: [id number] Acct: [id number] Name: JAKE BLANKENSHIP Rep #: [id number] : 1965 52 From: Tolu CANO PCP: Leida Cisneros MD Status: ADM IN - Discharge Diagnoses Current Active Problems: Current Active and Chronic Problems (Last Updated 10/18/17 @ 14:22 by Butch Schmitz DO) Acute diastolic CHF exacerbation You will use the following diet at home:: Calorie/Carbohydrate Controlled (specify 1200, 1400, etc) - 1800 vicki / day, Cardiac - <2 grams sodium daily. Your food should be the consistency of: Regular Your liquids should be the consistency of: Regular/Thin Discharge Activity: Return to Normal Activity Additional Instructions: monitor your weight daily, record it daily, and present the results to your PCP. If you gain 5 pounds in one day you need to call your PCP and talk about adjusting your lasix. Please also use compression socks daily for swelling and elevate your legs when sitting. Allergies/Adverse Reactions: Allergies pravastatin sodium [From Pravachol] Adverse Reaction (Intermediate, Verified 10/18/17 14:16) muscle aches ACHY MUSCLES Medications to take at Discharge Amlodipine [Norvasc] 10 mg PO DAILY 10/16/15 Aspirin [Aspirin, Baby] 81 mg PO DAILY@0800 10/16/15 Atorvastatin Calcium [Lipitor] 40 mg PO QHS 10/16/15 Carvedilol [Coreg (Beta William)] 25 mg PO BID 08/29/17 Insulin Glargine,Hum.rec.anlog [Toujeo Solostar] 150 unit SQ DAILY 08/29/17 Insulin Lispro [Humalog Tyree Kwikpen] 50 unit SQ TIDCM 08/29/17 Omeprazole [Prilosec] 20 mg PO DAILY 08/29/17 Losartan Potassium [Cozaar] 50 mg PO DAILY 10/18/17 Ferrous Sulfate 325 mg PO BIDCM #60 tab 10/19/17 Furosemide [Lasix] 40 mg PO BID #60 tab 10/19/17 Potassium Chloride [K-Dur] 10 meq PO DAILY #30 tab 10/19/17 The following prescriptions were given: Ferrous Sulfate 325 mg PO BIDCM #60 tab Furosemide [Lasix] 40 mg PO BID #60 tab Potassium Chloride [K-Dur] 10 meq PO DAILY #30 tab Primary Care Physician: Leida Cisneros MD [Primary Care Provider] - Please follow up with your Primary Care Physician in: 2 weeks Test Results: Test results from this visit will be discussed in further detail at your follow-up appointment, if applicable. Please Follow Up With: Piero Sanchez MD When: 2 weeks Proposed Discharge Date: 10/19/17 10/19/17 1130 <Electronically signed by Tolu CANO> Date Tolu CANO CC: Leida Cisneros MD BEDSIDE GLUCOSE Collected: 10/19/2017 Status: F Source: ROSA 11:17 AM [facility] REPOSITORY TYPE CODE TESTS RESULT OUT OF REFERENCE UNITS RANGE LAB L501.080 70-110 mg/dL High BEDSIDE GLU 218 Result Comment: MANAGEMENT OF PATIENT CARE PER NURSING PROTOCOL Performed By: #### L501.080 #### [facility] Point of Care [address] [place] [address] BEDSIDE GLUCOSE Collected: 10/19/2017 Status: F Source: ROSA 7:14 AM [facility] REPOSITORY TYPE CODE TESTS RESULT OUT OF REFERENCE UNITS RANGE LAB L501.080 70-110 mg/dL High BEDSIDE GLU 136 Result Comment: MANAGEMENT OF PATIENT CARE PER NURSING PROTOCOL Performed By: #### L501.080 #### [facility] Point of Care [address] [place] [address] BASIC METABOLIC Collected: 10/19/2017 Status: F Source: [place] PROFILE (BMP) 5:55 AM [facility] REPOSITORY TYPE CODE TESTS RESULT OUT OF RANGE REFERENCE UNITS LAB L501.0100 74-106 mg/dL High GLU 163 Result Comment: Fasting Glucose result greater than or equal to 126 mg/dL suggests DIABETES MELLITUS per A.D.A. criteria. Please note revised GLUCOSE reference range effective 2017. LAB L501.1000 7-18 mg/dL Normal BUN 16 LAB L501.1100 0.70-1.30 mg/dL High CREAT,SERUM 1.36 Result Comment: The validity of the calculated GFR AND GFRAA in patients over 70 years has not been determined. Clinical correlation is essential. LAB L501.1110 >60 mL/min Low EST GFR 58 Result Comment: Non- GFR Calc LAB L501.1115 >60 mL/min Normal EST GFR - AA 70 Result Comment: GFR Calc LAB L501.1255 ml/min Normal Estimated CRCL 58.05 LAB L501.1300 10-20 RATIO Normal BUN/CRE 11.8 LAB L501.2200 8.5-10 mg/dL Low .1 CA 8.3 LAB L501.5300 136-14 mmol/L Normal 5 NA 141 LAB L501.5600 3.5-5. mmol/L Normal 1 K 4.0 LAB L501.5900 98-107 mmol/L High CL 108 LAB L501.6100 21.0-3 mmol/L Normal 2.0 CO2 25.0 LAB L501.6200 5-15 Normal GAP 8 Performed By: #### L500.2500, L500.4100 #### [facility] [address] [facility]. [place], [place], [id number] LIPID PROFILE Collected: 10/19/2017 Status: F Source: [place] 5:55 AM [facility] REPOSITORY TYPE CODE TESTS RESULT OUT OF RANGE REFERENCE UNITS LAB L501.4900 200 mg/dL Normal CHOL 134 Result Comment: <200 mg/dL Desirable 200-240 mg/dL Borderline >240 mg/dL High Risk LAB L501.5000 mg/dL High TRIG 222 Result Comment: The drugs N-Acetylcysteine and Metamizole may falsely depress this assay. Serum Triglycerides Reference Interval Normal <150 mg/dL Borderline high 150 - 199 mg/dL High 200 - 499 mg/dL Very High > or = 500 mg/dL LAB L501.6400 mg/dL Low HDL 30 Result Comment: The drugs N-Acetylcysteine and Metamizole may falsely depress this assay. Reference Range HDL <40 mg/dL Low HDL Cholesterol HDL >or= 60 mg/dL High HDL Cholesterol LAB L501.6500 0-130 mg/dL Normal LDL 60 LAB L501.6600 5-40 mg/dL High VLDL 44 Performed By: #### L500.2500, L500.4100 #### [facility] [address] [facility] [place], [place], [id number] PROTHROMBIN TIME W/INR Collected: 10/19/2017 Status: F Source: [place] 5:55 AM [facility] REPOSITORY TYPE CODE TESTS RESULT OUT OF RANGE REFERENCE UNITS LAB L300.4150 11.7-14.9 SECONDS High PROTIME 15.0 LAB L300.4200 Normal INR 1.2 Performed By: #### L300.3900 #### [facility] [address] [place], [place], [address] BEDSIDE GLUCOSE Collected: 10/19/2017 Status: F Source: ROSA 3:51 AM [facility] REPOSITORY TYPE CODE TESTS RESULT OUT OF RANGE REFERENCE UNITS LAB L501.080 70-110 mg/dL Normal BEDSIDE GLU 104 Result Comment: MANAGEMENT OF PATIENT CARE PER NURSING PROTOCOL Performed By: #### L501.080 #### [facility] Point of Care [address] [place] [address] BEDSIDE GLUCOSE Collected: 10/19/2017 Status: F Source: ROSA 3:31 AM [facility] REPOSITORY TYPE CODE TESTS RESULT OUT OF REFERENCE UNITS RANGE LAB L501.080 70-110 mg/dL Low BEDSIDE GLU 69 Result Comment: MANAGEMENT OF PATIENT CARE PER NURSING PROTOCOL Performed By: #### L501.080 #### [facility] Point of Care [address] [place] [address] BEDSIDE GLUCOSE Collected: 10/19/2017 Status: F Source: ROSA 3:09 AM [facility] REPOSITORY TYPE CODE TESTS RESULT OUT OF REFERENCE UNITS RANGE LAB L501.080 70-110 mg/dL Low BEDSIDE GLU 54 Result Comment: MANAGEMENT OF PATIENT CARE PER NURSING PROTOCOL Performed By: #### L501.080 #### [facility] Point of Care [address] [place] [address] BEDSIDE GLUCOSE Collected: 10/18/2017 Status: F Source: ROSA 10:25 PM [facility] REPOSITORY TYPE CODE TESTS RESULT OUT OF REFERENCE UNITS RANGE LAB L501.080 70-110 mg/dL High BEDSIDE GLU 139 Result Comment: MANAGEMENT OF PATIENT CARE PER NURSING PROTOCOL Performed By: #### L501.080 #### [facility] Point of Care [address] [place] [address] TROPONIN-I Collected: 10/18/2017 Status: F Source: [place] 7:25 PM [facility] REPOSITORY Order Comment: 'TROP' Serial specimen #1, #2 or #3: 3 TYPE CODE TESTS RESULT OUT OF RANGE REFERENCE UNITS LAB L501.4010 <0.045 ng/mL Normal < 0.015 TROPONIN-I Result Comment: TROPONIN-I EXPECTED VALUES <0.045 Negative 0.045 - 0.590 Consistent with Cardiac Damage > OR = 0.600 Critical Value Not every elevated troponin is indicative of WI. These values should be used with clinical judgement in examining the patient's clinical picture for diagnosis. To establish a diagnosis of WI versus myocardial injury, there must be a demonstrated rise and/or fall in the troponin values, in addition to ischemic symptoms, EKG changes, new regional wall motion abnormality, and/or angiographical evidence. PLEASE NOTE: REFERENCE RANGES EDITED 17 Performed By: #### L501.4010 #### [facility] [address] [facility] [place] [place], [address] ECHOCARDIOGRAM COMPLETE Observed: 10/18/2017 Status: F Source: [place] 4:40 PM [facility] REPOSITORY [facility] Cardiovascular Services [address] [place] [address] Echo Complete 10/18/17 1520 MR#: [id number] Acct: [id number] Name: JAKE BLANKENSHIP Rep #: [id number] : 1965 52 From: Yovanny Lima MD Attending Dr: Butch Schmitz DO Status: ADM IN Ordering Dr: Butch Schmitz DO Date: 10/18/17 Location: [facility] Sex: M C Admitted: 10/18/17 Reason For Study: CHF Procedure This was a 2D Doppler, Color Flow transthoracic echocardiogram. The study was technically difficult. Exam performed portable in patient room. Left Ventricle Moderate concentric left ventricular hypertrophy. The estimated ejection fraction is 65 %. Normal diastology for age. No regional wall motion abnormalities noted. Right Ventricle Normal size and thickness. Normal systolic function. Atria The left atrium is severely enlarged. Normal right atrium. Normal atrial septum. Mitral Valve The mitral valve is structurally normal. No prolapse or stenosis seen. Mild (1+) mitral valve insufficiency. Tricuspid Valve Normal tricuspid valve. Trivial tricuspid valve insufficiency. Right ventricular systolic pressure estimated to be 44 mmHg. Mild pulmonary hypertension. Aortic Valve Trisinus/trileaflet aortic valve. Pulmonic Valve Normal pulmonic valve. Great Vessels Normal aortic root. Normal arch. Normal inferior vena cava. Inferior vena cava collapse with sniff. Pericardium/Pleural No pericardial effusion. MMode/2D Measurements AND Calculations LVIDd: 4.6 cm IVSd: 1.7 cm Ao root diam: 3.7 cm LVIDs: 3.7 cm LVPWd: 1.7 cm LA dimension: 5.7 cm FS: 20.1 % LAV(MOD-sp4): 122.9 ml LA A4 area: 31.9 cm2 RA A4 area: 18.2 cm2 Time Measurements MV dec time: 0.23 sec Doppler Measurements AND Calculations MV E max calista: 132.1 cm/sec MV V2 max: 175.3 cm/sec MV P1/2t max calista: 176.2 cm/sec MV A max calista: 73.3 cm/sec MV max P.3 mmHg MV P1/2t: 100.7 msec MV E/A: 1.8 MV V2 mean: 78.2 cm/sec MV dec slope: 512.7 cm/sec2 MV mean P.2 mmHg MVA(P1/2t): 2.2 cm2 MV V2 VTI: 46.4 cm Ao V2 max: 155.3 cm/sec LV V1 max: 114.1 cm/sec PA V2 max: 111.7 cm/sec Ao max P.6 mmHg LV V1 max P.2 mmHg Ao V2 mean: 105.3 cm/sec LV V1 mean P.4 mmHg Ao mean P.1 mmHg LV V1 mean: 69.8 cm/sec Ao V2 VTI: 32.2 cm LV V1 VTI: 23.5 cm TR max calista: 309.7 cm/sec TR max P.4 mmHg Interpretation Summary Moderate concentric left ventricular hypertrophy. The estimated ejection fraction is 65 %. Normal diastology for age. The left atrium is severely enlarged. Mild (1+) mitral valve insufficiency. Trivial tricuspid valve insufficiency. Right ventricular systolic pressure estimated to be 44 mmHg. There is no comparison study available. Ordering Physician: Butch Schmitz Referring Physician: Leida Cisneros Performed By: Krish Huertas RCS 10/18/171638 Date Yovanny Lima MD CC: Leida Cisneros MD; Butch Schmitz DO Date Dictated: 10/18/17 1520 Date Transcribed: 10/18/171638 Time Buyer: Signed BEDSIDE GLUCOSE Collected: 10/18/2017 Status: F Source: ROSA 4:19 PM [facility] REPOSITORY TYPE CODE TESTS RESULT OUT OF RANGE REFERENCE UNITS LAB L501.080 70-110 mg/dL Normal BEDSIDE GLU 104 Result Comment: MANAGEMENT OF PATIENT CARE PER NURSING PROTOCOL Performed By: #### L501.080 #### [facility] Point of Care [address] [place] [address] TROPONIN-I Collected: 10/18/2017 Status: F Source: [place] 4:15 PM [facility] REPOSITORY Order Comment: 'TROP' Serial specimen #1, #2 or #3: 2 TYPE CODE TESTS RESULT OUT OF RANGE REFERENCE UNITS LAB L501.4010 <0.045 ng/mL Normal < 0.015 TROPONIN-I Result Comment: TROPONIN-I EXPECTED VALUES <0.045 Negative 0.045 - 0.590 Consistent with Cardiac Damage > OR = 0.600 Critical Value Not every elevated troponin is indicative of WI. These values should be used with clinical judgement in examining the patient's clinical picture for diagnosis. To establish a diagnosis of WI versus myocardial injury, there must be a demonstrated rise and/or fall in the troponin values, in addition to ischemic symptoms, EKG changes, new regional wall motion abnormality, and/or angiographical evidence. PLEASE NOTE: REFERENCE RANGES EDITED 17 Performed By: #### L501.4010 #### [facility] [address] [facility] [place], [address] HISTORY AND PHYSICAL Observed: 10/18/2017 Status: F Source: [place] EXAM 2:28 PM [facility] REPOSITORY [facility] Medical Records Department [address] [facility] [place] [address] History and Physical 10/18/17 1416 MR#: [id number] Acct: [id number] Name: RUBÉNJESSIE CHACKOTEAGAN Pruett Rep #: [id number] : 1965 52 From: Butch Schmitz DO PCP: Leida Cisneros MD Status: ADM IN Location: [place] [address] Problem List (1) CHF (congestive heart failure) Status: Acute Qualifiers: Heart failure type: unspecified Heart failure chronicity: acute Qualified Code(s): I50.9 - Heart failure, unspecified History of Present Illness Date of Admission: 10/18/17 Chief Complaint: shortness of breath. edema. The patient is a 52 year old M who for the past 3 weeks has developed increasing lower extremity edema, increasing dyspnea on exertion and orthopnea. Patient has never had these symptoms before. Patient presented to the emergency room and had a slightly elevated BNP of 261. Patient has chest x-ray that was concerning for CHF. Patient did receive Nitro-Bid +20 mg of IV Lasix. [] Past Medical History Past Medical History (Chronic Problems): Chronic Problems Diabetes mellitus out of control (Chronic) Hyperlipidemia (Chronic) Benign essential hypertension (Chronic) Morbid obesity (Chronic) Coronary artery arteriosclerosis (Chronic) Lymphedema of left leg (Chronic) Left leg swelling (Chronic) Prostatism (Chronic) GERD (gastroesophageal reflux disease) (Chronic) Chronic venous insufficiency (Chronic) Edema of left lower extremity (Chronic) Medical History: Medical History (Last Updated 10/18/17 @ 14:22 by Butch Schmitz DO) Anemia D64.9 CAD (coronary artery disease) I25.10 CKD (chronic kidney disease) stage 2, GFR 60-89 ml/min N18.2 DM2 (diabetes mellitus, type 2) E11.9 GERD (gastroesophageal reflux disease) K21.9 Morbid obesity E66.01 MELODIE (obstructive sleep apnea) G47.33 HTN (hypertension) I10 Allergies pravastatin sodium [From Pravachol] Adverse Reaction (Intermediate, Verified 10/18/17 14:16) muscle aches ACHY MUSCLES Home Medications: Ambulatory Orders Medication Instructions Recorded Amlodipine [Norvasc] 10 mg PO DAILY 10/16/15 Aspirin [Aspirin, Baby] 81 mg PO DAILY@0800 10/16/15 Atorvastatin Calcium [Lipitor] 40 mg PO DAILY 10/16/15 Surgical History: coronary bypass surgery, - - Patient underwent coronary stent placement in 2008. He underwent coronary revascularization in March 2014, at which time 5 coronary bypass grafts were performed. Patient has a history of right groin wound debridement for MRSA. Psychiatric History: No pertinent psych hx Lives: Spouse/ Significant Other Smoking Status: Never smoker Tobacco Use: Non-smoker Alcohol: None Drugs: None - *Family History Paternal History Items: Hypertension Maternal History Items: Cancer - brain, Seizures Review of Systems Constitutional: Denies: Chills, Fever, Weight Change Eyes: Denies: Blurred vision, Double vision HEENT: Denies: Head Aches, Sinus Congestion, Sinus Drainage Cardiovascular: Reports: Edema, Orthopnea. Denies: Chest Pain, Palpitations Respiratory: Reports: Shortness of breath upon exertion. Denies: Cough Gastrointestinal: Reports: Abdominal Pain - when he ambulates. Denies: Diarrhea Genitourinary: Denies: Dysuria Musculoskeletal: Denies: Joint Pain, Joint Tenderness Skin: Denies: Rash, Wounds Neurological: Denies: Balance problems, Slurred speech Psychiatric: Denies: Anxiety, Depression Hematologic/ Lymphatic: Denies: Easy Bruising, Easy Bleeding, Hx of blood clot Comment: All review of systems are negative except as mentioned in the history of present illness and the other review of systems. VTE Information - Inpt Only VTE Present on Admission: No VTE Pharm Prophylaxis ordered?: Yes Patient Problems: Active and Suspected Problems Congestive heart failure of unknown etiology (Acute) CHF (congestive heart failure) (Acute) - Physical Exam General: Alert, Cooperative, No apparent distress HEENT: Atraumatic, Normocephalic Oral: Moist Mucosa, No Gingival or Mucosal Lesions/ Ulcerations Neck: No Nodes, Thyroid Normal Size and Texture Lungs: Clear to auscultation, No rhonchi, No wheeze, Diminished Cardiovascular: Regular rate, Regular Rhythm, Normal S1, Normal S2, No murmurs Abdomen: Bowel Sounds Present, Soft, Non Tender, Non-Distended Extremities: No Calf Tenderness, Edema - L>R Skin: No rashes, No breakdown Neurological: Neuro grossly intact, Sensory exam intact to light touch and pain, Coordination normal Psych/Mental Status: Normal Affect, Appropriate Vital Signs Temp Pulse Resp BP Pulse Ox 36.6 C 67 21 H 163/76 H 94 10/18/17 09:21 10/18/17 14:00 10/18/17 14:00 10/18/17 14:00 10/18/17 14:00 Oxygen Delivery Method Room Air Weight: 145.15 kg Body Mass Index (BMI) 50.1 Laboratory Tests Past 24 Hrs WBC RBC Hgb Hct MCV MCH MCHC RDW RDW Differential Plt Count MPV Immature Gran % (Auto) Neut % (Auto) EKG showed normal sinus rhythm without any acute changes. Chest x-ray reviewed and showed some mild pulmonary vascular congestion as well as some subtle pleural effusions. Assessment/Plan All Active Problems Cellulitis (Acute) Severe sepsis (Acute) Congestive heart failure of unknown etiology (Acute) CHF (congestive heart failure) (Acute) Leg pain, left (Acute) Left leg cellulitis (Acute) 1. Acute CHF * No echocardiogram available in our system though I would suspect probably with preserved ejection fraction * Patient is already on an angiotensin tension receptor william plus carvedilol * Patient will be started on IV Lasix to 40 million twice daily * Check an echocardiogram * But he will come getting this may be some undiagnosed pulmonary hypertension likely group 3 due to sleep apnea * With the patient's chronic swelling I have also discontinued his amlodipine. I do not feel that amlodipine was the sole cause of his edema but certainly did not help matters. * Should be noted, that the patient has a chronically enlarged left leg as compared to his right. This is due to patient's previous venous harvesting for his CABG. Patient's left leg is currently much more swollen than his right but I feel that this is not due to DVT but due to his chronic venous insufficiency due to his previous vein harvesting on that side. 2. Anemia * Patient has been chronically anemic dating back to 2016 * May be anemia of chronic disease * Will check anemia studies with iron, total iron-binding capacity, ferritin, TSH, B12 and folate 3. Obstructive sleep apnea * Patient has been diagnosed with that and had been on a BiPAP though the patient stopped using BiPAP due to he just did not tolerate it. Patient was seeing a physician at the [facility] to whom he does not know the name of. I talked to him, particularly if patient does have pulmonary hypertension, about most compliance with using CPAP or BiPAP. I have recommended the patient follow-up with pulmonology as outpatient and see about if the BiPAP may be more appropriate and better tolerated. 4. Diabetes mellitus type 2 * Continue with his Levemir and NovoLog. Sliding scale will also be added 5. DVT prophylaxis with Lovenox Code Visit Inpatient E AND M: 88120 Init Hosp L3 10/18/17 1428 <Electronically signed by Butch Schmitz DO> Date Butch Schmitz DO Cosigner Signature: Date (if applicable) CC: Leida Cisneros MD; Butch Schmitz DO Signed EMERGENCY DEPARTMENT Observed: 10/18/2017 Status: F Source: [place] SUMMARY 1:21 PM [facility] REPOSITORY [facility] Medical Records Department [address] [place] [address] Emergency Department Summary 10/18/17 0944 MR#: [id number] Acct: [id number] Name: JAKE BLANKENSHIP Rep #: [id number] : 1965 52 From: Butch Sabillon DO PCP: Leida Cisneros MD Status: REG ER - ER Visit Summary Date of Service: 10/18/17 Chief Complaint: Shortness of breath History of Present Illness: The patient is a 52 M who presents with shortness of breath that has been getting progressively worse over the past 3 weeks. Patient states his breathing is worse with laying flat. Patient states he has been having to sleep in a recliner. Patient states that his breathing is worse after exertion initially but then improves after coughing. Patient denies any fevers or chills. Patient admits to some discomfort over his epigastric area when he walks and exerts himself. Patient also admits to increased swelling of his lower extremities as well as his hands. Patient denies any paresthesias or weakness. Physical Examination: Vital signs are stable. Patient is afebrile. Patient is in no acute distress. Oral mucosa is pink and moist. Neck is supple. Trachea is midline. There is no JVD noted. Heart was regular rate and rhythm. Lungs showed a few bibasilar rales. There is good respiratory effort noted. Abdomen is soft. Bowel sounds are normal. There is no tenderness noted. Extremities were intact. There is 2+ pitting edema of the lower extremities bilaterally, worse on the left. Test Results: EKG showed a normal sinus rhythm with a rate of 64. There are no acute ST or T wave changes noted. CBC showed a mild anemia with a hemoglobin of 9.3 and hematocrit 31.0. Basic metabolic profile showed mildly elevated creatinine of 1.32. BNP was also slightly elevated at 261.3. Chest x-ray shows cardiomegaly and mild congestive heart failure. Emergency Department Course and Treatment: Patient was given Lasix and nitroglycerin paste here. Case was discussed with Dr. Schmitz. He was in to evaluate the patient will admit the patient to his service. Disposition: Admit to hospital Impression: New onset congestive heart failure This note was generated with [employer] dictation software. It may contain incorrect words, spelling, and punctuation that were not noted in review of the chart prior to signing ED Disposition - Plan for ED Patient: Disposition: Acute Care Hospital [facility] Chief Complaint: Shortness of Breath Diagnosis: Congestive heart failure of unknown etiology Referrals: Leida Cisneros MD [Primary Care Provider] - What to do if you have Problems For any increased pain, shortness of breath, bleeding, nausea or vomiting, chest pain, or any unexpected problems, contact your Primary Care Provider. Call [email or web address] ([phone]) or report to the closest Emergency Room. Call 911 if necessary. 10/18/17 1321 <Electronically signed by Butch Sabillon DO> Date Butch Sabillon DO Cosigner Signature (If Indicated): Date CC: Leida Cisneros MD CBC W/DIFF, AUTOMATED Collected: 10/18/2017 Status: F Source: ROSA 10:00 AM [facility] REPOSITORY TYPE CODE TESTS RESULT OUT OF RANGE REFERENCE UNITS LAB L100.1000 4.4-11.0 K/mm3 Normal WBC 6.7 LAB L100.1200 4.6-6.2 M/mm3 Low RBC 3.90 LAB L100.1300 13.0-16.5 g/dl Low HGB 9.3 LAB L100.1400 40-54 % Low HCT 31.0 LAB L100.1500 80-94 fL Low MCV 79.5 LAB L100.1600 27.0-32.0 pg Low MCH 23.8 LAB L100.1700 32-36 g/gl Low MCHC 30.0 LAB L100.1810 11.6-14.6 % High RDW CV 16.2 LAB L100.1820 35.1-43.9 fl High RDW SD 46.3 LAB L100.1900 150-450 K/mm3 Normal PLT 236 LAB L100.2000 6.2-12.0 fl Normal MPV 9.2 LAB L100.2100 47-70 % Normal NEUT% 60.2 LAB L100.2200 19-41 % Normal LY% 26.6 LAB L100.2300 0-10 % Normal MONO% 8.7 LAB L100.2400 0-5 % Normal EO% 3.5 LAB L100.2500 0-1 % Normal BASO% 0.5 LAB L100.2550 0.0-0.9 % Normal IM GRAN % 0.500 Result Comment: IG% - Immature Granulocytes (promyelocytes, myelocytes and metamyelocytes) > 1% indicates that a LEFT SHIFT is Present. LAB L100.2620 2.0-7.7 X10 3/uL Normal Absolute Neut 4.0 LAB L100.2720 0.83-4.51 X10 3/ul Normal Absolute Lymph 1.77 Performed By: #### L100.0100 #### [facility] [address] [place], [address] BASIC METABOLIC Collected: 10/18/2017 Status: F Source: [place] PROFILE ([facility]) 10:00 AM [facility] REPOSITORY TYPE CODE TESTS RESULT OUT OF RANGE REFERENCE UNITS LAB L501.0100 74-106 mg/dL Normal GLU 83 Result Comment: Please note revised GLUCOSE reference range effective 2017. LAB L501.1000 7-18 mg/dL Normal BUN 17 LAB L501.1100 0.70-1.30 mg/dL High CREAT,SERUM 1.32 Result Comment: The validity of the calculated GFR AND GFRAA in patients over 70 years has not been determined. Clinical correlation is essential. LAB L501.1110 >60 mL/min Normal EST GFR 60 Result Comment: Non- GFR Calc LAB L501.1115 >60 mL/min Normal EST GFR - AA 73 Result Comment: GFR Calc LAB L501.1255 ml/min Normal Estimated CRCL 59.81 LAB L501.1300 10-20 RATIO Normal BUN/CRE 12.9 LAB L501.2200 8.5-10 mg/dL Normal .1 CA 8.5 LAB L501.5300 136-14 mmol/L Normal 5 NA 140 LAB L501.5600 3.5-5. mmol/L Normal 1 K 4.1 LAB L501.5900 98-107 mmol/L High CL 109 LAB L501.6100 21.0-3 mmol/L Normal 2.0 CO2 23.0 LAB L501.6200 5-15 Normal GAP 8 Performed By: #### L500.2500 #### [facility] [address] [place], [address] BNP,B-TYPE NATRIURETIC Collected: 10/18/2017 Status: F Source: [place] PEPTIDE 10:00 AM [facility] REPOSITORY TYPE CODE TESTS RESULT OUT OF RANGE REFERENCE UNITS LAB L503.6620 0-100 pg/mL High B-TYPE 261.3 ELICEO PEP Performed By: #### L503.6620 #### [facility] [address] [place], [address] TROPONIN-I Collected: 10/18/2017 Status: F Source: [place] 10:00 AM [facility] REPOSITORY TYPE CODE TESTS RESULT OUT OF RANGE REFERENCE UNITS LAB L501.4010 <0.045 ng/mL Normal < 0.015 TROPONIN-I Result Comment: TROPONIN-I EXPECTED VALUES <0.045 Negative 0.045 - 0.590 Consistent with Cardiac Damage > OR = 0.600 Critical Value Not every elevated troponin is indicative of WI. These values should be used with clinical judgement in examining the patient's clinical picture for diagnosis. To establish a diagnosis of WI versus myocardial injury, there must be a demonstrated rise and/or fall in the troponin values, in addition to ischemic symptoms, EKG changes, new regional wall motion abnormality, and/or angiographical evidence. PLEASE NOTE: REFERENCE RANGES EDITED 17 Performed By: #### L501.4010 #### [facility] [address] [place], [address] THYROID STIM HORMONE Collected: 10/18/2017 Status: F Source: [place] (TSH) 10:00 AM [facility] REPOSITORY TYPE CODE TESTS RESULT OUT OF RANGE REFERENCE UNITS LAB L501.9520 0.358-3.74 uIU/mL Normal TSH 1.70 Performed By: #### L501.9520, L503.6030, L503.6550, L506.0250 #### [facility] [address] [place], [place], [address] IRON+IRON BINDING Collected: 10/18/2017 Status: F Source: [facility] 10:00 AM [facility] REPOSITORY TYPE CODE TESTS RESULT OUT OF RANGE REFERENCE UNITS LAB L503.6075 250-450 ug/dL TIBC Normal 359 LAB L503.6150 65-175 ug/dL Low IRON 24 LAB L503.6250 15.0-55.0 % Low IRON SATURATION 6.7 Performed By: #### L501.9520, L503.6030, L503.6550, L506.0250 #### [facility] [facility] [place], [place], [id number] FERRITIN Collected: 10/18/2017 Status: F Source: [place] 10:00 AM [facility] REPOSITORY TYPE CODE TESTS RESULT OUT OF RANGE REFERENCE UNITS LAB L503.6550 26-388 ng/mL Normal FERRITIN 46 Performed By: #### L501.9520, L503.6030, L503.6550, L506.0250 #### [facility] [address] [facility] [place], [address] FOLATES, (FOLIC ACID) Collected: 10/18/2017 Status: F Source: [place] 10:00 AM [facility] REPOSITORY TYPE CODE TESTS RESULT OUT OF RANGE REFERENCE UNITS LAB L506.0250 3.1-55.4 ng/mL Normal FOLATES 15.40 Result Comment: Slight Hemolysis, Result may be falsely increased. Performed By: #### L501.9520, L503.6030, L503.6550, L506.0250 #### [facility] [address] [facility] [address] [place], [place], [address] VITAMIN B12 Collected: 10/18/2017 Status: F Source: [place] 10:00 AM [facility] REPOSITORY TYPE CODE TESTS RESULT OUT OF RANGE REFERENCE UNITS LAB L503.0105 211-911 pg/mL Normal Vitamin B12 455 Performed By: #### L503.0105 #### [facility] [address] [place], [address] CHEST PA AND LATERAL Observed: 10/18/2017 Status: F Source: [place] 9:43 AM [facility] REPOSITORY [facility] Imaging Services [address] [place] [address] Chest PA and Lateral MR#: [id number] Acct: [id number] Name: JAKE BLANKENSHIP Rep #: [id number] : 1965 M 52 From: Cale Strong MD PCP: Leida Cisneros MD Status: REG ER Study: Chest PA and Lateral Date of Exam: 10/18/17 Exam# [id number] Ordering Dr: Butch Sabillon DO STUDY: X-RAY CHEST REASON FOR EXAM: Male, 52 years old. Shortness of breath/dyspnea. TECHNIQUE: PA and lateral views of the chest. COMPARISON: Comparison is made with prior study dated October 03, 2017. FINDINGS: EKG electrodes are seen. There is evidence of vascular congestion and mild degree of CHF. Blunting of both costophrenic angles posteriorly. Sternal cerclage wires and vascular clips are present from a prior sternotomy and coronary artery bypass graft procedure (CABG). Moderate cardiomegaly. Normal mediastinum and jordon. Normal visualized pulmonary arteries. Normal visualized aortic arch and descending thoracic aorta. Normal visualized thoracic spine. Normal visualized ribs, clavicles, and shoulders. There is no demonstrated abnormality of the visualized soft tissue structures of the upper abdomen. RAD/Chest PA and Lateral IMPRESSION: Cardiomegaly. Vascular congestion and mild CHF. Blunting of both costophrenic angles posteriorly. Electronically Signed: Cale Strong MD at 10:39 EDT Tel [phone], Service support , CC: Leida Cisneros MD; Butch Sabillon DO Time Buyer: Signed PROGRESS Observed: 10/13/2017 Status: COMPLETED Source: [place] 12:50 PM [facility] REPOSITORY HNO ID: [id number] Author: Sarah Varner [facility] Service: (none) Author Type: (none) Type: Progress Notes Filed: 10/13/2017 12:50 PM Note Text: Letters mailed to patient. PROGRESS Observed: 10/13/2017 Status: COMPLETED Source: [place] 12:49 PM [facility] REPOSITORY HNO ID: [id number] Author: Sarah Varner [facility] Service: (none) Author Type: (none) Type: Progress Notes Filed: 10/13/2017 12:50 PM Note Text: Upcoming appointment on 11/23. Due for labs prior (will send reminder). Due for DM retinal exam. I will send reminder for Dm retinal exam w/attached release form. CNPTOUTREACH Observed: 10/13/2017 Status: COMPLETED Source: [place] 12:00 AM [facility] REPOSITORY Patient Outreach (INTMWS) JAKE BLANKENSHIP ([id number]) 1965 M Date Time Provider Department 10/13/17 SARAH VARNER ([facility]) INTMWS During your visit today, we recorded the following information about you: aSrah Varner [facility] 10/13/2017 12:50 PM Signed Upcoming appointment on 11/23. Due for labs prior (will send reminder). Due for DM retinal exam. I will send reminder for Dm retinal exam w/attached release form. Sarah Varner [facility] 10/13/2017 12:50 PM Signed Letters mailed to patient. Allergies As of Date: 10/13/2017 Noted Allergy Reaction PRAVACHOL (PRAVASTATIN SODIUM) 08/11/2009 5 - Intolerance Comments: Myalgias/arthralgias. Resolved off med. Date Reviewed: 10/03/2017 Reviewed by: Sanjuanita Jackson Ma - Fully Assessed Reason for Visit: PHMA/Care Gap Outreach [[id number]] Prescriptions as of 10/13/2017 Sig: OMEPRAZOLE 20 MG CAPSULE,ANAI* TAKE ONE CAPSULE BY MOUTH ONC* LOSARTAN 50 MG TABLET Take 50 mg by mouth once malcom* COMPOUNDED PRESCRIPTION CUSTOM MEASURE FOR KNEE HIGH * INSULIN GLARGINE (U-300) 300 * Inject 150 Units subcutaneous* INSULIN SYRINGE-NEEDLE U-100 * INSULIN LISPRO (U-100) 100 UN* Inject 50 Units subcutaneousl* MELOXICAM 15 MG TABLET Take 1 tablet by mouth once d* Patient not taking: Reported on 10/03/2017 ALBUTEROL SULFATE HFA 90 MCG/* Inhale 2 Puffs as instructed * PEN NEEDLE, DIABETIC 31 GAUGE* AMLODIPINE 10 MG TABLET Take 1 tablet by mouth once d* ATORVASTATIN 40 MG TABLET Take 1 tablet by mouth daily * CARVEDILOL 25 MG TABLET Take 1 tablet by mouth twice * INSULIN SYRINGE WITH SAFETY N* Use three times daily with re* EASY TOUCH 31 GAUGE X 3/16 N* Use with meal-time insulin in* BECLOMETHASONE DIPROPIONATE 4* Inhale 2 Puffs as instructed * ASPIRIN 81 MG TABLET,DELAYED * Take 1 tablet by mouth once d* Problem List As Of Date 10/13/2017 Noted Resolved Coronary Artery Disease [I25.10] INVALID FOR* s/p Angioplasty with Stent INVALID FOR* Uncontrolled hypertension [I10] INVALID FOR* More... Hyperlipidemia with target LDL less than 70 [E7*INVALID FOR* Diabetes mellitus (HCC) [E11.9] INVALID FOR*10/15/2013 Proteinuria [R80.9] INVALID FOR* More... Uncontrolled type 2 diabetes mellitus with insu*INVALID FOR* Myocardial infarction (HCC) [I21.9] INVALID FOR* Edema [R60.9] INVALID FOR* MELODIE (obstructive sleep apnea) AHI 11 [G47.33] INVALID FOR* Obesity, Class III, BMI 40-49.9 (morbid obesity*INVALID FOR* Letter Text [place] [facility] LEIDA CISNEROS MD [address], [place] [address] Dear Jake Blankenship Your health care is very important to us. Our records indicate that you may be due for a diabetic eye exam. If you have had a diabetic eye exam within the last year, please have your records sent to us so that we may update your medical records. There is a medical records of release of information included in this letter. Please take the release to your eye doctor for future appointments to have your records forwarded to us. Important facts about diabetic eye exams Diabetic retinal exams should be done yearly for all patients with a diagnosis of diabetes. Risks such as diabetic retinopathy can be reduced with blood glucose control and early detection of potential problems. Diabetic retinopathy is damage to the small blood vessels in the retina that can lead to blindness Thank you, LEIDA CISNEROS MD Letter [facility] [place] [facility] [address] [place] [address] Office: [phone] Leida Cisneros MD REQUEST FOR EYE EXAM FINDINGS April 23, 2016 Dear eye respiratory care practitioner, Thank you for coordinating eye care for our mutual patient, Jake Blankenship (1965). Please fax this letter back to me with the most appropriate response selected below. Please allow the patient's signature to serve as permission to share your findings. Sincerely, Leida Cisneros MD Patient Signature Date Date of eye exam: Findings Both Eyes Right Left No Retinopathy Detected Non Proliferative Retinopathy Mild Moderate Severe Proliferative Retinopathy Macular Edema Further testing and/or treatment indicated Comments: Patient is to return: Encounter Status:Closed by SARAH VARNER CMA on 10/13/17 12 LEAD ELECTROCARDIOGRAM Observed: 10/06/2017 Status: F Source: [place] 2:55 PM [facility] REPOSITORY [facility] Cardiovascular Services [address] [place] [address] 12 Lead EKG 10/03/17 1610 MR#: [id number] Acct: [id number] Name: JAKE BLANKENSHIP Rep #: [id number] : 1965 52 From: Piero Sanchez MD Attending Dr: Status: DEP ER Ordering Dr: Nichole Ely MD Date: 10/03/17 Location: ED Sex: M C Admitted: Test Reason : CP REPEAT Blood Pressure : / mmHG Vent. Rate : 061 BPM Atrial Rate : 061 BPM P-R Int : 160 ms QRS Dur : 098 ms QT Int : 476 ms P-R-T Axes : 045 113 095 degrees QTc Int : 479 ms Normal sinus rhythm Left posterior fascicular block Nonspecific T wave abnormality Prolonged QT Abnormal ECG Confirmed by PIERO SANCHEZ MD ([id number]), online content editor JUVENTINO RAY ([id number]) on 10/06/2017 2:55:11 PM Referred By: [place] Cisneros Confirmed By:PIERO SANCHEZ MD 10/06/17 1455 Date Piero Sanchez MD CC: Leida Cisneros MD; Nichole Ely MD Signed 12 LEAD ELECTROCARDIOGRAM Observed: 10/06/2017 Status: F Source: [place] 2:37 PM [facility] Cardiovascular Services [address] [place] [address] 12 Lead EKG 10/03/17 1304 MR#: [id number] Acct: [id number] Name: JAKE BLANKENSHIP Rep #: [id number] : 1965 52 From: Piero Sanchez MD Attending Dr: Status: DEP ER Ordering Dr: Nichole Ely MD Date: 10/03/17 Location: ED Sex: M C Admitted: Test Reason : CP Blood Pressure : / mmHG Vent. Rate : 068 BPM Atrial Rate : 068 BPM P-R Int : 154 ms QRS Dur : 100 ms QT Int : 458 ms P-R-T Axes : 042 113 075 degrees QTc Int : 487 ms Normal sinus rhythm Left posterior fascicular block Nonspecific ST abnormality Prolonged QT Abnormal ECG Confirmed by PIERO SANCHEZ MD ([id number]), online content editor JUVENTINO RAY ([id number]) on 10/06/2017 2:36:49 PM Referred By: Leida Cisneros Confirmed By:PIERO SANCHEZ MD 10/06/17 1436 Date Piero Sanchez MD CC: Leida Cisneros MD; Nichole Ely MD Signed EMERGENCY DEPARTMENT Observed: 10/03/2017 Status: F Source: [place] SUMMARY 5:23 PM [facility] REPOSITORY [facility] Medical Records Department [address] [place] [address] Emergency Department Summary 10/03/17 1519 MR#: [id number] Acct: [id number] Name: JAKE BLANKENSHIP Rep #: [id number] : 1965 52 From: Nichole Ely MD PCP: Leida Cisneros MD Status: REG ER - ER Visit Summary Date of Service: 10/03/17 Chief Complaint: Chest pain History of Present Illness: The patient is a 52 M with a history of coronary disease and 5 way bypass surgery in 2013. He had a cardiac stent prior to that. Patient states he woke at 4 AM this morning short of breath. He felt better after he sat upright and try to calm himself. He states he gets chest heaviness in his chest feels numb whenever this shortness of breath occurs. It seems to be occurring with exertion now and better at rest. Physical Examination: Blood pressure is 182/83, other vitals normal. Head neck examination is unremarkable. Heart is regular rate and rhythm. Lung sounds are clear. Abdomen is soft nontender. Lower external examination was chronic lower leg edema. Left leg is swollen more than right patient states this is chronic since his heart surgery. Test Results: EKG is sinus at [address] change. Portable chest x-ray shows moderate cardiomegaly and mild scarring. CBC reveals normal white count with hemoglobin of 10.2. Chemistry studies reveal BUN 23 creatinine 1.34. Glucose is 181. Troponin is less than 0.015. BNP is 391. Emergency Department Course and Treatment: Patient was given aspirin on arrival here. He has had no further episodes of chest pain. Patient does not have a history of cardiac disease and I am unable to confirm his last stress test. I recommended observation overnight for cycling of cardiac enzymes but he is declining. He did agree to stay for 3 hour rule out. Repeat EKG is sinus at 61 bpm with no acute ST change. Repeat troponin remains less than 0.015. His blood pressure did remain elevated here. He is ordered a dose of hydralazine. He will monitor his blood pressures at home. 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 If he has any worsening symptoms or concerns he is encouraged to return to the emergency room immediately. He voices understanding and agreement. Treatment Plan: [] Disposition: Discharge Impression: Chest pain This note was generated with [employer] dictation software. It may contain incorrect words, spelling, and punctuation that were not noted in review of the chart prior to signing ED Disposition - Plan for ED Patient: Chief Complaint: Chest Pain Referrals: Leida Cisneros MD [Primary Care Provider] - What to do if you have Problems For any increased pain, shortness of breath, bleeding, nausea or vomiting, chest pain, or any unexpected problems, contact your Primary Care Provider. Call [facility] ([phone]) or report to the closest Emergency Room. Call 911 if necessary. 10/03/17 1723 <Electronically signed by Nichole Ely MD> Date Nichole Ely MD Cosigner Signature (If Indicated): Date CC: Leida Cisneros MD DISCHARGE INSTRUCTION Observed: 10/03/2017 Status: F Source: [place] 5:00 PM [facility] REPOSITORY [facility] Medical Records Department [address] [place] [address] Discharge Instruction 10/03/17 1658 MR#: [id number] Acct: [id number] Name: JAKE BLANKENSHIP Flynn Rep #: [id number] : 1965 52 From: Nichole Ely MD PCP: Leida Cisneros MD Status: REG ER ED Disposition - Plan for ED Patient: Disposition: Home or Assisted Living Chief Complaint: Chest Pain Instructions: ED Chest Pain Angina Stable Referrals: Leida Cisneros MD [Primary Care Provider] - Additional Instructions: 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 Return to ED immediately for any worsening symptoms or concerns. What to do if you have Problems For any increased pain, shortness of breath, bleeding, nausea or vomiting, chest pain, or any unexpected problems, contact your Primary Care Provider. Call [facility] ([phone]) or report to the closest Emergency Room. Call 911 if necessary. 10/03/17 1700 <Electronically signed by Nichole Ely MD> Date Nichole Ely MD Cosigner Signature (If Indicated): Date CC: Leida Cisneros MD TROPONIN-I Collected: 10/03/2017 Status: F Source: [place] 4:20 PM [facility] REPOSITORY Order Comment: 'TROP' Serial specimen #1, #2 or #3: 2 TYPE CODE TESTS RESULT OUT OF RANGE REFERENCE UNITS LAB L501.4010 <0.045 ng/mL Normal < 0.015 TROPONIN-I Result Comment: TROPONIN-I EXPECTED VALUES <0.045 Negative 0.045 - 0.590 Consistent with Cardiac Damage > OR = 0.600 Critical Value Not every elevated troponin is indicative of WI. These values should be used with clinical judgement in examining the patient's clinical picture for diagnosis. To establish a diagnosis of WI versus myocardial injury, there must be a demonstrated rise and/or fall in the troponin values, in addition to ischemic symptoms, EKG changes, new regional wall motion abnormality, and/or angiographical evidence. PLEASE NOTE: REFERENCE RANGES EDITED 17 Performed By: #### L501.4010 #### [facility] [address] [place], [address] TROPONIN-I Collected: 10/03/2017 Status: F Source: [place] 3:33 PM [facility] REPOSITORY Order Comment: Comments: Should be drawn 2H after initial Troponin obtained TYPE CODE TESTS RESULT OUT OF RANGE REFERENCE UNITS LAB L501.4010 <0.045 ng/mL Normal < 0.015 TROPONIN-I Result Comment: TROPONIN-I EXPECTED VALUES <0.045 Negative 0.045 - 0.590 Consistent with Cardiac Damage > OR = 0.600 Critical Value Not every elevated troponin is indicative of WI. These values should be used with clinical judgement in examining the patient's clinical picture for diagnosis. To establish a diagnosis of WI versus myocardial injury, there must be a demonstrated rise and/or fall in the troponin values, in addition to ischemic symptoms, EKG changes, new regional wall motion abnormality, and/or angiographical evidence. PLEASE NOTE: REFERENCE RANGES EDITED 17 Performed By: #### L501.4010 #### [facility] [address] [facility] [place] [place], [address] CHEST 1 VIEW Observed: 10/03/2017 Status: F Source: [place] (PORTABLE) 1:31 PM [facility] REPOSITORY [facility] Imaging Services [address] [place] [address] Chest 1 View (Portable) MR#: [id number] Acct: [id number] Name: JAKE BLANKENSHIP Rep #: [id number] : 1965 52 From: Cale Strong MD PCP: Leida Cisneros MD Status: REG ER Study: Chest 1 View (Portable) Date of Exam: 10/03/17 Exam# [id number] Ordering Dr: Nichole Ely MD STUDY: X-RAY CHEST REASON FOR EXAM: Male, 52 years old. Chest pain. TECHNIQUE: Single AP portable view of the chest. COMPARISON: Comparison is made with prior study dated August 29, 2017. FINDINGS: EKG electrodes are seen. Stable mild increased markings in the lingular segment of the left upper lobe suggestive of scarring. No acute abnormality is seen. There is no demonstrated pleural abnormality. Sternal cerclage wires and vascular clips are present from a prior sternotomy and coronary artery bypass graft procedure (CABG). Moderate cardiomegaly. Normal mediastinum and jordon. Normal visualized pulmonary arteries. Normal visualized aortic arch and descending thoracic aorta. Normal visualized thoracic spine. Normal visualized ribs, clavicles, and shoulders. There is no demonstrated abnormality of the visualized soft tissue structures of the upper abdomen. RAD/Chest 1 View (Portable) IMPRESSION: Moderate cardiomegaly. Findings suggest a mild lingular scarring. Electronically Signed: Cale Strong MD at 13:54 EDT Tel [phone], Service support , CC: Leida Cisneros MD; Nichole Ely MD Time Buyer: Signed CBC W/DIFF, AUTOMATED Collected: 10/03/2017 Status: F Source: [place] 1:15 PM [facility] REPOSITORY TYPE CODE TESTS RESULT OUT OF RANGE REFERENCE UNITS LAB L100.1000 4.4-11.0 K/mm3 Normal WBC 8.1 LAB L100.1200 4.6-6.2 M/mm3 Low RBC 4.21 LAB L100.1300 13.0-16.5 g/dl Low HGB 10.2 LAB L100.1400 40-54 % Low HCT 33.6 LAB L100.1500 80-94 fL Low MCV 79.8 LAB L100.1600 27.0-32.0 pg Low MCH 24.2 LAB L100.1700 32-36 g/gl Low MCHC 30.4 LAB L100.1810 11.6-14.6 % High RDW CV 15.9 LAB L100.1820 35.1-43.9 fl High RDW SD 46.2 LAB L100.1900 150-450 K/mm3 Normal PLT 285 LAB L100.2000 6.2-12.0 fl Normal MPV 9.0 LAB L100.2100 47-70 % Normal NEUT% 68.6 LAB L100.2200 19-41 % Normal LY% 23.1 LAB L100.2300 0-10 % Normal MONO% 5.4 LAB L100.2400 0-5 % Normal EO% 2.3 LAB L100.2500 0-1 % Normal BASO% 0.5 LAB L100.2550 0.0-0.9 % Normal IM GRAN % 0.100 Result Comment: IG% - Immature Granulocytes (promyelocytes, myelocytes and metamyelocytes) > 1% indicates that a LEFT SHIFT is Present. LAB L100.2620 2.0-7.7 X10 3/uL Normal Absolute Neut 5.6 LAB L100.2720 0.83-4.51 X10 3/ul Normal Absolute Lymph 1.87 Performed By: #### L100.0100 #### [facility] [address] [place], [address] BASIC METABOLIC Collected: 10/03/2017 Status: F Source: [place] PROFILE ([facility]) 1:15 PM [facility] REPOSITORY TYPE CODE TESTS RESULT OUT OF RANGE REFERENCE UNITS LAB L501.0100 74-106 mg/dL High GLU 181 Result Comment: Fasting Glucose result greater than or equal to 126 mg/dL suggests DIABETES MELLITUS per A.D.A. criteria. Please note revised GLUCOSE reference range effective 2017. LAB L501.1000 7-18 mg/dL High BUN 23 LAB L501.1100 0.70-1.30 mg/dL High CREAT,SERUM 1.34 Result Comment: The validity of the calculated GFR AND GFRAA in patients over 70 years has not been determined. Clinical correlation is essential. LAB L501.1110 >60 mL/min Low EST GFR 59 Result Comment: Non- GFR Calc LAB L501.1115 >60 mL/min Normal EST GFR - AA 71 Result Comment: GFR Calc LAB L501.1255 ml/min Normal Estimated CRCL 58.92 LAB L501.1300 10-20 RATIO Normal BUN/CRE 17.2 LAB L501.2200 8.5-10 mg/dL Normal .1 CA 8.5 LAB L501.5300 136-14 mmol/L Normal 5 NA 138 LAB L501.5600 3.5-5. mmol/L Normal 1 K 4.0 LAB L501.5900 98-107 mmol/L High CL 109 LAB L501.6100 21.0-3 mmol/L Low 2.0 CO2 20.0 LAB L501.6200 5-15 Normal GAP 9 Performed By: #### L500.2500, L501.4010 #### [facility] [address] [place], [address] TROPONIN-I Collected: 10/03/2017 Status: F Source: [place] 1:15 PM [facility] REPOSITORY TYPE CODE TESTS RESULT OUT OF RANGE REFERENCE UNITS LAB L501.4010 <0.045 ng/mL Normal < 0.015 TROPONIN-I Result Comment: TROPONIN-I EXPECTED VALUES <0.045 Negative 0.045 - 0.590 Consistent with Cardiac Damage > OR = 0.600 Critical Value Not every elevated troponin is indicative of WI. These values should be used with clinical judgement in examining the patient's clinical picture for diagnosis. To establish a diagnosis of WI versus myocardial injury, there must be a demonstrated rise and/or fall in the troponin values, in addition to ischemic symptoms, EKG changes, new regional wall motion abnormality, and/or angiographical evidence. PLEASE NOTE: REFERENCE RANGES EDITED 17 Performed By: #### L500.2500, L501.4010 #### [facility] [address] [place], [address] BNP,B-TYPE NATRIURETIC Collected: 10/03/2017 Status: F Source: [place] 1:15 PM [facility] HOSPITAL REPOSITORY TYPE CODE TESTS RESULT OUT OF RANGE REFERENCE UNITS LAB L503.6620 0-100 pg/mL High B-TYPE 391.6 ELICEO PEP Performed By: #### L503.6620 #### [facility] Laboratory [address] [place], [address] PROGRESS Observed: 10/03/2017 Status: COMPLETED Source: [place] 1:12 PM [facility] [place] REPOSITORY HNO ID: [id number] Author: Shirley Jackson Service: (none) Author Type: Nurse Practitioner Type: Progress Notes Filed: 10/03/2017 1:17 PM Note Text: Triage Note: Pt presents with acute onset dyspnea last evening and chest pressure. Hx WI Was recently discharged from [facility] for sepsis. There were no vitals taken for this visit. .Patient presents with: Chest Congestion: productive cough x last night PAST MEDICAL HISTORY Diagnosis Date - Diabetes (HCC) - Hypertension - WI (myocardial infarction) (HCC) 03-12-09 stent placement - Myocardial infarction (HCC) 03/16/2014 PAST SURGICAL HISTORY Procedure Laterality Date - CABG (5) VENOUS GRAFTS AND ARTERIAL GRAFT(S) 03/17 - PAST SURGICAL HISTORY OF ORIF LMF with pins - REMOVAL OF TONSILS,<12 Y/O Tonsillectomy ALLERGIES Pravachol [Pravastatin Sodium] MEDICATIONS >Zippered Compression Knee High 30-40 mm custom CUSTOM MEASURE FOR KNEE HIGH HEBERT COMPRESSION STOCKINGS, 30-40 MM, WITH ZIPPERS PLEASE. IF UNABLE, PLEASE REFER TO [facility]. DX: EDEMA insulin glargine (TOUJEO SOLOSTAR U-300 INSULIN) 300 unit/mL (1.5 mL) inpn Inject 150 Units subcutaneously every morning. 80 units plus 70 units Insulin Syringe-Needle U-100 1 mL 31 gauge x 5/16 syrg insulin lispro (HUMALOG KWIKPEN) 100 unit/mL inpn Inject 50 Units subcutaneously w MEALS. albuterol HFA (VENTOLIN HFA) 90 mcg/actuation inhaler Inhale 2 Puffs as instructed every 4 hours as needed for Wheezing/Shortness of Breath. Insulin [place], Disposable, 31 gauge x 1/4 ndle amLODIPine (NORVASC) 10 mg tablet Take 1 tablet by mouth once daily. atorvastatin (LIPITOR) 40 mg tablet Take 1 tablet by mouth daily at bedtime. For cholesterol. carvedilol (COREG) 25 mg tablet Take 1 tablet by mouth twice daily with meals. insulin syringe,safetyneedle 1 mL 31 gauge x 5/16 syrg Use three times daily with regular insulin omeprazole (PRILOSEC) 20 mg capsule Take 1 capsule by mouth once daily. EASY TOUCH 31 gauge x 3/16 ndle Use with meal-time insulin injections five times daily. beclomethasone (QVAR) 40 mcg/actuation inhaler Inhale 2 Puffs as instructed twice daily. aspirin, enteric coated (ASPIR-81) 81 mg EC tablet Take 1 tablet by mouth once daily. losartan (COZAAR) 50 mg tablet Take 50 mg by mouth once daily. meloxicam (MOBIC) 15 mg tablet Take 1 tablet by mouth once daily as needed. Take with food. FAMILY HISTORY Problem Relation Age of Onset - Cancer Mother Social History Substance Use Topics - Smoking status: Never Smoker - Smokeless tobacco: Former User Quit date: 01/14/2014 - Alcohol use No ASSESSMENT/PLAN: 1. Dyspnea, unspecified type - ICD9: 786.09, ICD10: R06.00 (primary diagnosis) 2. Chest pressure - ICD9: 786.59, ICD10: R07.89 Referred to ED. Pt refuses transfer via squad. will drive him there now. Shirley Jackson APRN.CNP CNOV Observed: 10/03/2017 Status: COMPLETED Source: [place] 12:30 PM [facility] REPOSITORY Office Visit (WSTR) JAKE BLANKENSHIP ([id number]) 1965 M Date Time Provider Department 10/03/17 12:30 PM SHIRLEY JACKSON [facility] During your visit today, we recorded the following information about you: Shirley Jackson APRN.CNP 10/03/2017 1:17 PM Signed Triage Note: Pt presents with acute onset dyspnea last evening and chest pressure. Hx WI Was recently discharged from [facility] for sepsis. There were no vitals taken for this visit. .Patient presents with: Chest Congestion: productive cough x last night PAST MEDICAL HISTORY Diagnosis Date - Diabetes (HCC) - Hypertension - WI (myocardial infarction) ([facility]) 03-12-09 stent placement - Myocardial infarction (HCC) 03/16/2014 PAST SURGICAL HISTORY Procedure Laterality Date - CABG (5) VENOUS GRAFTS AND ARTERIAL GRAFT(S) 03/17 - PAST SURGICAL HISTORY OF ORIF LMF with pins - REMOVAL OF TONSILS,<12 Y/O Tonsillectomy ALLERGIES Pravachol [Pravastatin Sodium] MEDICATIONS >Zippered Compression Knee High 30-40 mm custom CUSTOM MEASURE FOR KNEE HIGH HEBERT COMPRESSION STOCKINGS, 30-40 MM, WITH ZIPPERS PLEASE. IF UNABLE, PLEASE REFER TO [facility]. DX: EDEMA insulin glargine (TOUJEO SOLOSTAR U-300 INSULIN) 300 unit/mL (1.5 mL) inpn Inject 150 Units subcutaneously every morning. 80 units plus 70 units Insulin Syringe-Needle U-100 1 mL 31 gauge x 5/16 syrg insulin lispro (HUMALOG KWIKPEN) 100 unit/mL inpn Inject 50 Units subcutaneously w MEALS. albuterol HFA (VENTOLIN HFA) 90 mcg/actuation inhaler Inhale 2 Puffs as instructed every 4 hours as needed for Wheezing/Shortness of Breath. Insulin [place], Disposable, 31 gauge x 1/4 ndle amLODIPine (NORVASC) 10 mg tablet Take 1 tablet by mouth once daily. atorvastatin (LIPITOR) 40 mg tablet Take 1 tablet by mouth daily at bedtime. For cholesterol. carvedilol (COREG) 25 mg tablet Take 1 tablet by mouth twice daily with meals. insulin syringe,safetyneedle 1 mL 31 gauge x 5/16 syrg Use three times daily with regular insulin omeprazole (PRILOSEC) 20 mg capsule Take 1 capsule by mouth once daily. EASY TOUCH 31 gauge x 3/16 ndle Use with meal-time insulin injections five times daily. beclomethasone (QVAR) 40 mcg/actuation inhaler Inhale 2 Puffs as instructed twice daily. aspirin, enteric coated (ASPIR-81) 81 mg EC tablet Take 1 tablet by mouth once daily. losartan (COZAAR) 50 mg tablet Take 50 mg by mouth once daily. meloxicam (MOBIC) 15 mg tablet Take 1 tablet by mouth once daily as needed. Take with food. FAMILY HISTORY Problem Relation Age of Onset - Cancer Mother Social History Substance Use Topics - Smoking status: Never Smoker - Smokeless tobacco: Former User Quit date: 01/14/2014 - Alcohol use No ASSESSMENT/PLAN: 1. Dyspnea, unspecified type - ICD9: 786.09, ICD10: R06.00 (primary diagnosis) 2. Chest pressure - ICD9: 786.59, ICD10: R07.89 Referred to ED. Pt refuses transfer via squad. will drive him there now. Shirley Jackson APRN.[employer] Referring Provider: SELF [[id number]] Allergies As of Date: 10/03/2017 Noted Allergy Reaction PRAVACHOL (PRAVASTATIN SODIUM) 08/11/2009 5 - Intolerance Comments: Myalgias/arthralgias. Resolved off med. Date Reviewed: 10/03/2017 Reviewed by: Sanjuanita Jackson Ma - Fully Assessed Reason for Visit: Chest Congestion [236] Cmt: productive cough x last night Primary Visit Diagnosis:Dyspnea, unspecified type [R06.00] Other Visit Diagnosis:Chest pressure [R07.89] Prescriptions as of 10/03/2017 Sig: COMPOUNDED PRESCRIPTION CUSTOM MEASURE FOR KNEE HIGH * INSULIN GLARGINE (U-300) 300 * Inject 150 Units subcutaneous* INSULIN SYRINGE-NEEDLE U-100 * INSULIN LISPRO (U-100) 100 UN* Inject 50 Units subcutaneousl* ALBUTEROL SULFATE HFA 90 MCG/* Inhale 2 Puffs as instructed * PEN NEEDLE, DIABETIC 31 GAUGE* AMLODIPINE 10 MG TABLET Take 1 tablet by mouth once d* ATORVASTATIN 40 MG TABLET Take 1 tablet by mouth daily * CARVEDILOL 25 MG TABLET Take 1 tablet by mouth twice * INSULIN SYRINGE WITH SAFETY N* Use three times daily with re* OMEPRAZOLE 20 MG CAPSULE,ANAI* Take 1 capsule by mouth once * EASY TOUCH 31 GAUGE X 3/16 N* Use with meal-time insulin in* BECLOMETHASONE DIPROPIONATE 4* Inhale 2 Puffs as instructed * ASPIRIN 81 MG TABLET,DELAYED * Take 1 tablet by mouth once d* LOSARTAN 50 MG TABLET Take 50 mg by mouth once malcom* MELOXICAM 15 MG TABLET Take 1 tablet by mouth once d* Patient not taking: Reported on 10/03/2017 Problem List As Of Date 10/03/2017 Noted Resolved Coronary Artery Disease [I25.10] INVALID FOR* s/p Angioplasty with Stent INVALID FOR* Uncontrolled hypertension [I10] INVALID FOR* More... Hyperlipidemia with target LDL less than 70 [E7*INVALID FOR* Diabetes mellitus (HCC) [E11.9] INVALID FOR*10/15/2013 Proteinuria [R80.9] INVALID FOR* More... Uncontrolled type 2 diabetes mellitus with insu*INVALID FOR* Myocardial infarction (HCC) [I21.9] INVALID FOR* Edema [R60.9] INVALID FOR* MELODIE (obstructive sleep apnea) AHI 11 [G47.33] INVALID FOR* Obesity, Class III, BMI 40-49.9 (morbid obesity*INVALID FOR* Encounter Status:Closed by SHIRLEY JACKSON CNP on 10/03/17 OT GENERAL EVALUATION Observed: 09/30/2017 Status: F Source: [place] 11:03 AM [facility] REPOSITORY [facility] Occupational Therapy [facility] [address] [place] [address] Fax REHABILITATION SERVICES INITIAL EVALUATION MR#: [id number] Acct: [id number] Name: JAKE BLANKENSHIP Rep #: [id number] : 1965 52 From: Adele SIMPSON/Isreal, LARRYT Referring Dr.: Leida Cisneros MD Status: REG RCR Insurance: [employer] Prevention [facility] Date: MEDICARE PART A B Patient's Visit Information JAKE BLANKENSHIP is a 52 year old M, referred to Occupational Therapy by Leida Cisneros, with a diagnosis of left LE lymphedema. Date of Evaluation: 09/29/17 Occupational Therapist: TATIANA Mosley/Isreal, CHT - Subjective Subjective: PT attends OT with Dx of LE lymphedema. Pt states he had open heart sx years ago and he has had swelling in left LE sinces. PT states he has had custom compression socks but now his insurance will not cover the garments. He is hopeful to find compression garment alternative to mtg his swelling. Pt is currently using a compression pump 1x a day but no compression on his leg during the day. - Pain left LE 2 Pain Intensity Range: 0, 2 - Lymphedema (Circumferential Measure) Ankle: right 27cm left 33cm Lower calf: right 35cm left 41cm Largest calf: right 48cm left 57cm Below knee: right 41cm left 48cm Lower Exremity Comments: pt left LE firm to touch- red and demo skin texture changes - Sensation Sensation Comments: denies - Lower Limb Functional Index Lower Extremity Functional Score: 31 - Goals Demonstrate a 20% reduction in edema by d/c: Yes Demonstrate adequate knowledge of self-bangaging by 1st week: Yes Demonstrate adequate knowledge skin care/prec by 2nd week: Yes Demonstrate adequate knowledge therapeutic exercises by d/c: Yes Select approp compression garment w/donning/care/wear by d/c: Yes Voice need to replace compression garment every 4-6mo by dc: Yes - Rehabilitation General Assessment: pt demo need for ed. on lymphedema mtg., compression alternatives, and ex. for life long mtg of lymphedema. pt was ed. today on compression alternatives as velcro closer compression garments. pt is concerned with cost and is worried about how expensive all compression devices are. pt did agree on use of [employer] compression garment. Therapist gave pt information on web sites and DME suppliers to get compression garment from. Rehabilitation Potential: Good - Anticipated Interventions Anticipated Interventions: Manual Lymph Drainage, Education re Life-long lymphedema Management, Education re Correct Donning Tech,Care AND Wearing Sched Comp Garments, Home Program - Visit Plan Frequency: 1x/Week Duration: 2 Weeks TEXT: Thank you for the opportunity to evaluate your patient. For Medicare and Medicare HMO plans, please review the plan of care and approve it. It will need to be FAXED BACK to us at [phone] for Medicare purposes. Please let me know if there are questions or concerns regarding this plan of care. Physician Signature: Date: <Electronically signed by Adele MONSIVAIS CHT> 09/30/17 1103 CC: Leida Cisneros MD MK Signed For Medicare only, by signing this I certify the plan of care. Physicians Signature Date 12 LEAD ELECTROCARDIOGRAM Observed: 09/19/2017 Status: F Source: [place] 8:36 AM [facility] REPOSITORY [facility] Cardiovascular Services [address] [place] [address] 12 Lead EKG 08/29/17 1227 MR#: [id number] Acct: [id number] Name: JAKE BLANKENSHIP Flynn Rep #: [id number] : 1965 52 From: Yovanny Lima MD Attending Dr: Butch Schmitz DO Status: DIS IN Ordering Dr: Abbi Nichols MD Date: 08/29/17 Location: [facility]3 Sex: M C Admitted: 08/29/17 Test Reason : LOWER EXTREMETY PAIN Blood Pressure : / mmHG Vent. Rate : 087 BPM Atrial Rate : 087 BPM P-R Int : 142 ms QRS Dur : 098 ms QT Int : 368 ms P-R-T Axes : 026 080 055 degrees QTc Int : 442 ms Normal sinus rhythm Normal ECG Confirmed by YOVANNY LIMA ([id number]), online content editor JUVENTINO RAY ([id number]) on 09/12/2017 5:22:54 PM Referred By: LD Confirmed By:YOVANNY LIMA 09/12/17 1722 Date Yovanny Lima MD CC: Leida Cisneros MD; Butch Schmitz DO; Abbi Nichols MD Signed PROGRESS Observed: 09/16/2017 Status: COMPLETED Source: [place] 1:28 PM [facility] [place] REPOSITORY HNO ID: [id number] Author: Leida Cisneros Service: (none) Author Type: Physician Type: Progress Notes Filed: 09/16/2017 6:38 PM Note Text: Reason for Visit No chief complaint on file. Jake Blankenship is a 52 year old male who presents here today for Above Complaints.. Health Maintenance DTAP,TDAP,TD(6 - Tdap) COLORECTAL CANCER SCREENING,SEE MODIFIER ZOSTER VACCINE (SHINGRIX)(1 of 2) DILATED RETINAL EXAM HPI Was admitted in the hospital for sepsis from cellulitis, he had TALITA there and was stopped of a lot of medication including metformin, lisinopril, jardiance, hctz, melxicam and spirnolactone, his toujeo was increased to 150 units. novolog was increased to 45 units and prilosec was added. He feels better , not as tired. He is still using the sleep machine Was started on Cozaar on follow up visit with He has swelling of the left foot since 3/4 years when they took arteries out from bypass. And that is the foot that causes him to have issues His hba1c is 8.8 from 10.5. No problem-specific Assessment AND Plan notes found for this encounter. PAST MEDICAL HISTORY Diagnosis Date - Diabetes (HCC) - Hypertension - WI (myocardial infarction) (HCC) 03-12-09 stent placement - Myocardial infarction ([facility]) 03/16/2014 PAST SURGICAL HISTORY Procedure Laterality Date - CABG (5) VENOUS GRAFTS AND ARTERIAL GRAFT(S) 03/17 - PAST SURGICAL HISTORY OF ORIF LMF with pins - REMOVAL OF TONSILS,<12 Y/O Tonsillectomy FAMILY HISTORY Problem Relation Age of Onset - Cancer Mother Social History Substance Use Topics - Smoking status: Never Smoker - Smokeless tobacco: Former User Quit date: 01/14/2014 - Alcohol use No Past medical history, appointments, medications, allergies reviewed. Pertinent Lab/Diagnostic Studies are reviewed and discussed today Current Outpatient Prescriptions: - losartan (COZAAR) 50 mg tablet - insulin glargine (TOUJEO SOLOSTAR U-300 INSULIN) 300 unit/mL (1.5 mL) inpn - insulin lispro (HUMALOG KWIKPEN) 100 unit/mL inpn - amLODIPine (NORVASC) 10 mg tablet - atorvastatin (LIPITOR) 40 mg tablet - carvedilol (COREG) 25 mg tablet - aspirin, enteric coated (ASPIR-81) 81 mg EC tablet - cephALEXin (KEFLEX) 500 mg capsule - Insulin Syringe-Needle U-100 1 mL 31 gauge x 5/16 syrg - meloxicam (MOBIC) 15 mg tablet - albuterol HFA (VENTOLIN HFA) 90 mcg/actuation inhaler - Insulin [place], Disposable, 31 gauge x 1/4 ndle - metFORMIN (GLUCOPHAGE) 1,000 mg tablet - hydroCHLOROthiazide (HYDRODIURIL, ESIDRIX) 25 mg tablet - lisinopril (ZESTRIL, PRINIVIL) 40 mg tablet - spironolactone (ALDACTONE) 100 mg tablet - insulin syringe,safetyneedle 1 mL 31 gauge x 5/16 syrg - omeprazole (PRILOSEC) 20 mg capsule - EASY TOUCH 31 gauge x 3/16 ndle - beclomethasone (QVAR) 40 mcg/actuation inhaler Review of Systems CONSTITUTIONAL: No fevers, chills night sweats, unintended weight loss CARDIOVASCULAR: No chest pain, dyspnea, palpitations, orthopnea, PND, ankle edema. PULM: No dyspnea, unexplained cough. GI: No dysphagia/odynophagia, problematic reflux, constipation, diarrhea, changes in stool habits, hematochezia, melena. : No new urinary complaints, including dysuria, gross hematuria or pyuria. NEURO: No new balance problems, peripheral weakness/paresthesias or numbness of concern. Physical Exam BP 130/70 (BP Site: Left Arm, BP Position: Sitting, BP Cuff Size: Large Adult) Pulse 64 Resp 16 Wt (!) 141.6 kg (312 lb 1.9 oz) BMI 48.88 kg/m? General appearance: Well appearing, alert, in no acute distress, well nourished. Skin: Skin color, texture, turgor normal, no suspicious rashes or lesions Head: Normocephalic, no masses, lesions, tenderness or abnormalities Eyes: Anicteric sclera. Pupils are equally round and reactive to light. Extraocular movements are intact. Lungs: Lungs clear to auscultation. No wheezing, rhonchi, rales Heart: RRR without murmur, gallop, or rubs. Extremities: No deformities, edema, skin discoloration, clubbing or cyanosis. Good capillary refill. ASSESSMENT/PLAN: 1. Pedal edema - ICD9: 782.3, ICD10: R60.0 (primary diagnosis) - COMPOUNDED PRESCRIPTION 2. Uncontrolled hypertension - ICD9: 401.9, ICD10: I10 - good control - Recommended regular aerobic exercise. - Recommend home blood pressure monitoring, to bring results in on next visit - Goal of BP <130/80 3. Hyperlipidemia with target LDL less than 70 - ICD9: 272.4, ICD10: E78.5 - good control - Continue current medication. 4. Uncontrolled type 2 diabetes mellitus with insulin therapy (HCC) - ICD9: 250.02, V58.67, ICD10: E11.65, Z79.4 Controlled. - Continue current medications - HGB A1C 5. MELODIE (obstructive sleep apnea) AHI 11 - ICD9: 327.23, ICD10: G47.33 6. Obesity, Class III, BMI 40-49.9 (morbid obesity) (HCC) - ICD9: 278.01, ICD10: E66.01 LEIDA CISNEROS MD CNOV Observed: 09/16/2017 Status: COMPLETED Source: [place] 1:00 PM [facility] REPOSITORY Office Visit (INTMWS) JAKE BLANKENSHIP ([id number]) 1965 M Date Time Provider Department 09/16/17 1:00 PM LEIDA CISNEROS During your visit today, we recorded the following information about you: Pulse Respiration Blood pressure Weight 64/minute 16/minute 130/70 141.6 kg LEIDA CISNEROS MD 09/16/2017 6:38 PM Signed Reason for Visit No chief complaint on file. Jake Blankenship is a 52 year old male who presents here today for Above Complaints.. Health Maintenance DTAP,TDAP,TD(6 - Tdap) COLORECTAL CANCER SCREENING,SEE MODIFIER ZOSTER VACCINE (SHINGRIX)(1 of 2) DILATED RETINAL EXAM HPI Was admitted in the hospital for sepsis from cellulitis, he had TALITA there and was stopped of a lot of medication including metformin, lisinopril, jardiance, hctz, melxicam and spirnolactone, his toujeo was increased to 150 units. novolog was increased to 45 units and prilosec was added. He feels better , not as tired. He is still using the sleep machine Was started on Cozaar on follow up visit with He has swelling of the left foot since 3/4 years when they took arteries out from bypass. And that is the foot that causes him to have issues His hba1c is 8.8 from 10.5. No problem-specific Assessment AND Plan notes found for this encounter. PAST MEDICAL HISTORY Diagnosis Date - Diabetes (HCC) - Hypertension - WI (myocardial infarction) (HCC) 03-12-09 stent placement - Myocardial infarction (HCC) 03/16/2014 PAST SURGICAL HISTORY Procedure Laterality Date - CABG (5) VENOUS GRAFTS AND ARTERIAL GRAFT(S) 03/17 - PAST SURGICAL HISTORY OF ORIF LMF with pins - REMOVAL OF TONSILS,<12 Y/O Tonsillectomy FAMILY HISTORY Problem Relation Age of Onset - Cancer Mother Social History Substance Use Topics - Smoking status: Never Smoker - Smokeless tobacco: Former User Quit date: 01/14/2014 - Alcohol use No Past medical history, appointments, medications, allergies reviewed. Pertinent Lab/Diagnostic Studies are reviewed and discussed today Current Outpatient Prescriptions: - losartan (COZAAR) 50 mg tablet - insulin glargine (TOUJEO SOLOSTAR U-300 INSULIN) 300 unit/mL (1.5 mL) inpn - insulin lispro (HUMALOG KWIKPEN) 100 unit/mL inpn - amLODIPine (NORVASC) 10 mg tablet - atorvastatin (LIPITOR) 40 mg tablet - carvedilol (COREG) 25 mg tablet - aspirin, enteric coated (ASPIR-81) 81 mg EC tablet - cephALEXin (KEFLEX) 500 mg capsule - Insulin Syringe-Needle U-100 1 mL 31 gauge x 5/16 syrg - meloxicam (MOBIC) 15 mg tablet - albuterol HFA (VENTOLIN HFA) 90 mcg/actuation inhaler - Insulin [place], Disposable, 31 gauge x 1/4 ndle - metFORMIN (GLUCOPHAGE) 1,000 mg tablet - hydroCHLOROthiazide (HYDRODIURIL, ESIDRIX) 25 mg tablet - lisinopril (ZESTRIL, PRINIVIL) 40 mg tablet - spironolactone (ALDACTONE) 100 mg tablet - insulin syringe,safetyneedle 1 mL 31 gauge x 5/16 syrg - omeprazole (PRILOSEC) 20 mg capsule - EASY TOUCH 31 gauge x 3/16 ndle - beclomethasone (QVAR) 40 mcg/actuation inhaler Review of Systems CONSTITUTIONAL: No fevers, chills night sweats, unintended weight loss CARDIOVASCULAR: No chest pain, dyspnea, palpitations, orthopnea, PND, ankle edema. PULM: No dyspnea, unexplained cough. GI: No dysphagia/odynophagia, problematic reflux, constipation, diarrhea, changes in stool habits, hematochezia, melena. : No new urinary complaints, including dysuria, gross hematuria or pyuria. NEURO: No new balance problems, peripheral weakness/paresthesias or numbness of concern. Physical Exam BP 130/70 (BP Site: Left Arm, BP Position: Sitting, BP Cuff Size: Large Adult) Pulse 64 Resp 16 Wt (!) 141.6 kg (312 lb 1.9 oz) BMI 48.88 kg/m? General appearance: Well appearing, alert, in no acute distress, well nourished. Skin: Skin color, texture, turgor normal, no suspicious rashes or lesions Head: Normocephalic, no masses, lesions, tenderness or abnormalities Eyes: Anicteric sclera. Pupils are equally round and reactive to light. Extraocular movements are intact. Lungs: Lungs clear to auscultation. No wheezing, rhonchi, rales Heart: RRR without murmur, gallop, or rubs. Extremities: No deformities, edema, skin discoloration, clubbing or cyanosis. Good capillary refill. ASSESSMENT/PLAN: 1. Pedal edema - ICD9: 782.3, ICD10: R60.0 (primary diagnosis) - COMPOUNDED PRESCRIPTION 2. Uncontrolled hypertension - ICD9: 401.9, ICD10: I10 - good control - Recommended regular aerobic exercise. - Recommend home blood pressure monitoring, to bring results in on next visit - Goal of BP <130/80 3. Hyperlipidemia with target LDL less than 70 - ICD9: 272.4, ICD10: E78.5 - good control - Continue current medication. 4. Uncontrolled type 2 diabetes mellitus with insulin therapy (HCC) - ICD9: 250.02, V58.67, ICD10: E11.65, Z79.4 Controlled. - Continue current medications - HGB A1C 5. MELODIE (obstructive sleep apnea) AHI 11 - ICD9: 327.23, ICD10: G47.33 6. Obesity, Class III, BMI 40-49.9 (morbid obesity) ([facility]) - ICD9: 278.01, ICD10: E66.01 LEIDA CISNEROS MD Referring Provider: SELF [200] Allergies As of Date: 09/16/2017 Noted Allergy Reaction PRAVACHOL (PRAVASTATIN SODIUM) 08/11/2009 5 - Intolerance Comments: Myalgias/arthralgias. Resolved off med. Date Reviewed: 08/23/2017 Reviewed by: Dominga Stauffer LPN - Fully Assessed Primary Visit Diagnosis:Pedal edema [R60.0] Other Visit Diagnoses:Uncontrolled hypertension [I10] Hyperlipidemia with target LDL less than 70 [E78.5] Uncontrolled type 2 diabetes mellitus with insulin therapy (HCC) [E11.65, Z79.4] MELODIE (obstructive sleep apnea) AHI 11 [G47.33] Obesity, Class III, BMI 40-49.9 (morbid obesity) (HCC) [E66.01] Order(s):>Zippered Compression Knee High 30-40 mm customCUSTOM MEASURE FOR KNEE HIGH HEBERT COMPRESSION STOCKINGS, 30-40 MM, WITH ZIPPERS PLEASE. IF UNABLE, PLEASE REFER TO [facility]. DX: EDEMADisp: 1 EachRfl: 0 HGB A1C [EMHYK2G] Order #: [id number] FUTURE Prescriptions as of 09/16/2017 Sig: LOSARTAN 50 MG TABLET Take 50 mg by mouth once malcom* INSULIN GLARGINE (U-300) 300 * Inject 150 Units subcutaneous* INSULIN LISPRO (U-100) 100 UN* Inject 50 Units subcutaneousl* AMLODIPINE 10 MG TABLET Take 1 tablet by mouth once d* ATORVASTATIN 40 MG TABLET Take 1 tablet by mouth daily * CARVEDILOL 25 MG TABLET Take 1 tablet by mouth twice * ASPIRIN 81 MG TABLET,DELAYED * Take 1 tablet by mouth once d* COMPOUNDED PRESCRIPTION CUSTOM MEASURE FOR KNEE HIGH * INSULIN SYRINGE-NEEDLE U-100 * MELOXICAM 15 MG TABLET Take 1 tablet by mouth once d* ALBUTEROL SULFATE HFA 90 MCG/* Inhale 2 Puffs as instructed * PEN NEEDLE, DIABETIC 31 GAUGE* INSULIN SYRINGE WITH SAFETY N* Use three times daily with re* OMEPRAZOLE 20 MG CAPSULE,ANAI* Take 1 capsule by mouth once * EASY TOUCH 31 GAUGE X 3/16 N* Use with meal-time insulin in* BECLOMETHASONE DIPROPIONATE 4* Inhale 2 Puffs as instructed * Medication notes this encounter CEPHALEXIN 500 MG CAPSULE >> Hiren Bower LPN 09/16/2017 1:08 PM >> HIREN BOWER LPN TueSep 16, 2017 1:08 PM therapy completed Problem List As Of Date 09/16/2017 Noted Resolved Coronary Artery Disease [I25.10] INVALID FOR* s/p Angioplasty with Stent INVALID FOR* Uncontrolled hypertension [I10] INVALID FOR* More... Hyperlipidemia with target LDL less than 70 [E7*INVALID FOR* Diabetes mellitus (HCC) [E11.9] INVALID FOR*10/15/2013 Proteinuria [R80.9] INVALID FOR* More... Uncontrolled type 2 diabetes mellitus with insu*INVALID FOR* Myocardial infarction (HCC) [I21.9] INVALID FOR* Edema [R60.9] INVALID FOR* MELODIE (obstructive sleep apnea) AHI 11 [G47.33] INVALID FOR* Obesity, Class III, BMI 40-49.9 (morbid obesity*INVALID FOR* Prescriptions ordered this encounter Disp Refills Start End COMPOUNDED PRESCRIPTION 1 Ea* 0 09/16/2017 Class: Print RX Sig: CUSTOM MEASURE FOR KNEE HIGH HEBERT COMPRESSION STOCKINGS, 30-40 MM, WITH ZIPPERS PLEASE. IF UNABLE, PLEASE REFER TO SAMUEL AT [facility]. DX: EDEMA Medications Discontinued During This Encounter spironolactone (ALDACTONE) 100 mg ta* 30 t* 5 04/11/2017 09/16/2017 Route: ORAL Sig: Take 1 tablet by mouth once daily. Patient not taking: Reported on 09/06/2017 Disc: Reason for discontinue is not on file. spironolactone (ALDACTONE) 100 mg ta* 30 t* 5 04/11/2017 09/16/2017 Route: ORAL Sig: Take 1 tablet by mouth once daily. Patient not taking: Reported on 09/06/2017 Disc: Reason for discontinue is not on file. lisinopril (ZESTRIL, PRINIVIL) 40 mg* 30 t* 5 04/11/2017 09/16/2017 Route: ORAL Sig: Take 1 tablet by mouth once daily. Patient not taking: Reported on 09/06/2017 Disc: Reason for discontinue is not on file. hydroCHLOROthiazide (HYDRODIURIL, ES* 30 t* 5 04/11/2017 09/16/2017 Route: ORAL Sig: Take 1 tablet by mouth once daily. Patient not taking: Reported on 09/06/2017 Disc: Reason for discontinue is not on file. metFORMIN (GLUCOPHAGE) 1,000 mg tabl* 60 t* 5 04/11/2017 09/16/2017 Route: ORAL Sig: Take 1 tablet by mouth twice daily. Patient not taking: Reported on 09/06/2017 Disc: Reason for discontinue is not on file. cephALEXin (KEFLEX) 500 mg capsule 09/01/2017 09/16/2017 Class: Historical Med Sig: Disc: Reason for discontinue is not on file. Encounter Status:Closed by LEIDA CISNEROS MD on 09/16/17 COMP METABOLIC PANEL Collected: 09/14/2017 Status: F Source: [place] 8:[facility] AM [facility] REPOSITORY TYPE CODE TESTS RESULT OUT OF REFERENCE UNITS RANGE LAB TP 6.3-8.0 g/dL Protein, Total 7.9 LAB ALB 3.9-4.9 g/dL Low Albumin 3.1 LAB CA 8.5-10.2 mg/dL Calcium, Total 9.0 LAB TBIL 0.2-1.3 mg/dL Bilirubin, Total 0.2 LAB ALKP 36-108 U/L Alkaline High Phosphatase 127 LAB AST 14-40 U/L AST 29 LAB GLU 74-99 mg/dL Glucose High 166 Result Comment: The [place] [employer] (ADA) provides guidance for cutoff values for fasting glucose and random glucose. The ADA defines fasting as no caloric intake for at least 8 hours. Fas ting plasma glucose results between 100 to 125 mg/dL indicate increased risk for diabetes (prediabetes). Fasting plasma glucose results greater than or equal to 126 mg/dL meet the criteria for diagnosis of diabetes. In the absence of unequivocal hyperglycemia, results should be confirmed by repeat testing. In a patient with classic symptoms of hyperglycemia or hyperglycemic crisis, random plasma glucose results greater than or equal to 200 mg/dL meet the criteria for diagnosis of diabetes. Reference: Standards of Medical Care in Diabetes 2016, [place] Diabetes Association. Diabetes Care. 2016.39(Suppl 1). LAB BUN 9-24 mg/dL BUN 13 LAB CRET 0.73-1.22 mg/dL Creatinine High 1.28 LAB NA 136-144 mmol/L Low Sodium 134 LAB K 3.7-5.1 mmol/L Potassium 4.7 LAB CL 97-105 mmol/L Chloride 101 LAB CO2 22-30 mmol/L CO2 23 LAB AGAP 9-18 mmol/L Anion Gap 10 LAB ALT 10-54 U/L ALT 30 LAB GFRAA eGFR- Amer. >60 LAB GFRNAA . eGFR-All Other Races 59 Result Comment: eGFR (Estimated GFR) Units of measure: mL/min/1.73 meters squared eGFR is derived from the reexpressed MDRD Study equation using the following parameters: serum creatinine, age, gender and race. The creatinine assay has been calibrated to be traceable to IDMS. An eGFR <60 mL/min/1.73m2 for >3 months is consistent with chronic kidney disease. Refer to KDOQI guidelines for clinical interpretation. In patients with unstable renal function, e.g. those with acute kidney injury, the eGFR may not accurately reflect actual GFR. Performed By: #### CMP, HBA1C, VITD #### [facility] [employer] [address] [place], [place] [address] HEMOGLOBIN A1C Collected: 09/14/2017 Status: F Source: [place] 8:36 AM [facility] REPOSITORY TYPE CODE TESTS RESULT OUT OF REFERENCE UNITS RANGE LAB HGBA1C 4.3-5.6 % High Hemoglobin A1c 8.8 LAB HBA0 mg/dL Est. Average Glucose 206 Result Comment: eAG: (Estimated average glucose) is a calculated value from HgbA1c and is insurance service representative of the average blood glucose level in the last 2-3 month period. Performed By: #### CMP, HBA1C, VITD #### [facility] [employer] [address] [place], [place] [address] VITAMIN D 25 HYDROXY Collected: 09/14/2017 Status: F Source: [place] 8:36 AM [facility] REPOSITORY TYPE CODE TESTS RESULT OUT OF REFERENCE UNITS RANGE LAB VITD 31.0-80.0 ng/mL Low Vitamin D 25 28.3 Hydroxy Result Comment: Classification of 25 [place] Vitamin D status: Insufficiency/Moderate Deficiency: < or = 30 ng/mL Sufficiency/Optimal Levels: 31 to 80 ng/mL Toxicity: > 100 ng/mL Test performed by chemiluminescent immunoassay. Performed By: #### CMP, HBA1C, VITD #### [facility] [address] [place], [place] [address] PROGRESS Observed: 09/06/2017 Status: COMPLETED Source: [place] 9:00 AM [facility] REPOSITORY O ID: [id number] Author: Saman Parkinson (Pharmacist) Service: (none) Author Type: Pharmacist Type: Progress Notes Filed: 09/06/2017 2:20 PM Note Text: Patient consents to pharmacy collaborative practice agreement. REASON FOR CONSULT: DM? GOALS: A1c <?8% CONSULTING PROVIDER: Dr. Cisneros?? Date of Consult: 02/2017 Jake Blankenship is a 52 year old male was last seen in [facility] by PCP, Dr. LEIDA CISNEROS MD on 08/23. Patient is presenting today for f/u pharmacotherapy management appointment for DM. At last PharmD visit on 08/05 empagliflozin was started. INTERIM HISTORY: Was in [facility] last week for cellulitis and severe sepsis Was discharged on cephalexin Several medicines were held due to reduced renal fxn Will be following with Dr. Raymundo nephrology at [facility] next week Insulin glargine was increased from 130 to 150 units States he is more motivated to work on lifestyle modifications and dietary changes now more than previously Is happy with the fact he is on fewer medicines even if that means he requires more insulin Denies any issues or AE with empagliflozin when he did take it Current DM Medications: Insulin glargine 300 units/mL 150 units QAM Insulin lispro 50 units TID meals held at [facility] held at [facility] Current HTN Medications: held at [facility] held at [facility] Amlodipine 10mg once daily Carvedilol 25mg BID held at [facility] Preventative Medications: ? On GEENA/ARB: Yes ? On Statin: Yes ? On ASA: Yes ROS: ? Patient denies CP, SOB, PEREZ, blurred vision, dizziness or lightheadedness ? Patient denies symptoms of hypoglycemia (sweating, anxiety, palpitations, hunger, and tremor) ? Patient denies symptoms of hyperglycemia (polyuria, polydipsia, polyphagia) ? Patient denies potential medication adverse effects DIET/EXERCISE/SOCIAL Hx: ? Started eating smaller portions ? Breakfast egg and muffin and banana ? Lunch ham salad on one piece of bread ? Supper pork shoulder and some mashed potatoes ? Beverages: 2 cans of diet pop in the last week MEDICATIONS: ? Pill bottles are not?present. ? Adherence: denies?missed doses. ? Pharmacy: [facility], [place]? Rx coverage: [employer] ? Affordability: no issues ? Diabetes supplies: Relion ? Organization System: pillbox ACTIVE PROBLEM LIST Coronary Artery Disease S/P Angioplasty With Stent Uncontrolled Hypertension Hyperlipidemia With Target Ldl Less Than 70 Proteinuria Uncontrolled Type 2 Diabetes Mellitus With Insulin Therapy (Hcc) Myocardial Infarction (Hcc) Edema MELODIE (obstructive sleep apnea) AHI 11 Obesity, Class Iii, Bmi 40-49.9 (Morbid Obesity) ([facility]) PAST MEDICAL HISTORY Diagnosis Date - Diabetes (HCC) - Hypertension - [place] (myocardial infarction) ([facility]) 03-12-09 stent placement - Myocardial infarction ([facility]) 03/16/2014 ALLERGIES Allergen Reactions - Pravachol [Pravasta* Intolerance Myalgias/arthralgias. Resolved off med. Current Outpatient Prescriptions: Insulin Syringe-Needle U-100 1 mL 31 gauge x 5/16 syrg insulin lispro (HUMALOG KWIKPEN) 100 unit/mL inpn Inject 50 Units subcutaneously w MEALS. empagliflozin (JARDIANCE) 10 mg tablet Take 1 tablet by mouth once daily. meloxicam (MOBIC) 15 mg tablet Take 1 tablet by mouth once daily as needed. Take with food. albuterol HFA (VENTOLIN HFA) 90 mcg/actuation inhaler Inhale 2 Puffs as instructed every 4 hours as needed for Wheezing/Shortness of Breath. Insulin [place], Disposable, 31 gauge x 1/4 ndle insulin glargine (TOUJEO SOLOSTAR U-300 INSULIN) 300 unit/mL (1.5 mL) inpn Inject 130 Units subcutaneously every morning. 80 units plus 50 units metFORMIN (GLUCOPHAGE) 1,000 mg tablet Take 1 tablet by mouth twice daily. amLODIPine (NORVASC) 10 mg tablet Take 1 tablet by mouth once daily. atorvastatin (LIPITOR) 40 mg tablet Take 1 tablet by mouth daily at bedtime. For cholesterol. carvedilol (COREG) 25 mg tablet Take 1 tablet by mouth twice daily with meals. hydroCHLOROthiazide (HYDRODIURIL, ESIDRIX) 25 mg tablet Take 1 tablet by mouth once daily. lisinopril (ZESTRIL, PRINIVIL) 40 mg tablet Take 1 tablet by mouth once daily. spironolactone (ALDACTONE) 100 mg tablet Take 1 tablet by mouth once daily. insulin syringe,safetyneedle 1 mL 31 gauge x 5/16 syrg Use three times daily with regular insulin omeprazole (PRILOSEC) 20 mg capsule Take 1 capsule by mouth once daily. EASY TOUCH 31 gauge x 3/16 ndle Use with meal-time insulin injections five times daily. beclomethasone (QVAR) 40 mcg/actuation inhaler Inhale 2 Puffs as instructed twice daily. CLOTRIMAZOLE (LOTRIMIN TOPICAL) Apply to affected area. aspirin, enteric coated (ASPIR-81) 81 mg EC tablet Take 1 tablet by mouth once daily. No current facility-administered medications for this visit. Rx meds not listed in EPIC: none OTCs: none Herbals: none GLYCEMIC CONTROL: ? Glucometer present at visit: No ? SMBG?s: Date Fasting AM 2 hr PP Before Lunch 2 hr PP Before Dinner 2 hr PP Bedtime 09/06 158 222 6/ 128 6/ 120 183 128 127 09/03 177 214 210 69 266 339 09/02 208 242 103 79 175 09/01 127 162 142 145 196 ? Hypoglycemia: one instance VITALS: BP 130/73 Pulse 70 Last 3 Encounter BP Readings: Date: BP: 08/23/2017 124/64 07/02/2017 152/82 06/29/2017 135/68 Wt: 145.6 kg (321 lb) BMI: 50.28 kg/(m2) LABS Lab Results Component Value Date HBA1C 10.8 05/30/2017 HBA1C 9.9 02/02/2017 HBA1C 9.4 09/07/2016 CMP: Glucose 317 05/30/2017 BUN 22 05/30/2017 Creatinine 1.48 05/30/2017 1.68 09/01/2017 Sodium 134 09/01/2017 Potassium 4.6 09/01/2017 Chloride 100 05/30/2017 CO2 18 05/30/2017 Protein, Total 7.2 02/02/2017 Albumin 3.8 02/02/2017 Calcium 9.5 05/30/2017 Alkaline Phosphatase 73 02/02/2017 Bilirubin, Total 0.3 02/02/2017 AST 32 02/02/2017 ALT 39 02/02/2017 GFR 45 ml/min on 09/01/2017 Estimated Creatinine Clearance: 79 mL/min (A) (based on SCr of 1.48 mg/dL (H)). Last Lipid Panel Lab Results Component Value Date CHOL 135 02/02/2017 Lab Results Component Value Date HDL 29 02/02/2017 Lab Results Component Value Date LDL 62 02/02/2017 Lab Results Component Value Date TG 219 02/02/2017 Albumin/Creat Ratio (mg/g) Date Value 02/02/2017 1,727 (H) PHARMACOTHERAPY ASSESSMENT/PLAN: 1. Uncontrolled type 2 diabetes mellitus with insulin therapy (HCC) - ICD9: 250.02, V58.67, ICD10: E11.65, Z79.4 (primary diagnosis) A1c goal < 8% per Consult (could consider tighter goal of < 7% d/t age), patient is not at goal (10.8% on 05/30/17). Due for recheck. SMBGs improving since [facility] discharge (increase in basal insulin and improvements in diety). Patient is compliant and tolerating current therapy. Will continue current regimen at this time. With high doses of basal insulin, suspect some absorption issues and/or insulin resistance. Patient does not tolerate GLP-1 therapy. Will continue to hold metformin and will d/c empagliflozin given potential for kidney injury. Metformin may be re-started given GFR > 30 but will hold until Nephrology appointment next week.?Renal fxn and LFTs WNL. ? CONTINUE insulin glargine 150 units QAM, lispro 50 units TID meals ? HOLD metformin until Nephrology appointment, can possibly re-start soon after ? Instructed patient to continue checking BGs and bring glucometer to next PharmD visit 2. Uncontrolled hypertension - ICD9: 401.9, ICD10: I10 BP goal <?140/90, pt is at goal on current therapy. At goal without three of the BP medicines held upon [facility] discharge. Tolerating and compliant with therapy. Will continue just the two therapies continued at discharge and monitor BP. If BP remains at goal in the future could add back just lisinopril low dose for renal protective effects. Renal fxn and K+ WNL. Na slightly low but improved from last BMP. ? CONTINUE amlodipine 10mg once daily and carvedilol 25mg BID ? HOLD lisinopril, HCTZ, spironolactone 3. Hyperlipidemia with target LDL less than 70 - ICD9: 272.4, ICD10: E78.5 Pt is on appropriate statin intensity (high intensity d/t clinical ASCVD). LFTs and renal fxn WNL. ? CONTINUE atorvastatin 40mg once daily Health Maintenance issues addressed: DILATED RETINAL EXAM due on 04/26/2017 Patient is scheduled to see PCP 09/16. Patient to return to clinic for PharmD f/u on 10/11. Patient verbalized understanding of instructions. Saman Parkinson, Miguel, BCPS CNOV Observed: 09/06/2017 Status: COMPLETED Source: [place] 9:00 AM [facility] REPOSITORY Office Visit (MEWO) JAKE BLANKENSHIP ([id number]) 1965 M Date Time Provider Department 09/06/17 9:00 AM TESHA (PHARMACIST), SAMAN SKELTON During your visit today, we recorded the following information about you: Pulse Blood pressure 70/minute 130/73 SAMAN PARKINSON PHARMACIST 09/06/2017 2:20 PM Signed Patient consents to pharmacy collaborative practice agreement. REASON FOR CONSULT: DM? GOALS: A1c <?8% CONSULTING PROVIDER: Dr. Cisneros?? Date of Consult: 02/2017 Jake Blankenship is a 52 year old male was last seen in [facility] by PCP, Dr. LEIDA CISNEROS MD on 08/23. Patient is presenting today for f/u pharmacotherapy management appointment for DM. At last PharmD visit on 08/05 empagliflozin was started. INTERIM HISTORY: Was in [facility] last week for cellulitis and severe sepsis Was discharged on cephalexin Several medicines were held due to reduced renal fxn Will be following with Dr. Raymundo nephrology at [facility] next week Insulin glargine was increased from 130 to 150 units States he is more motivated to work on lifestyle modifications and dietary changes now more than previously Is happy with the fact he is on fewer medicines even if that means he requires more insulin Denies any issues or AE with empagliflozin when he did take it Current DM Medications: Insulin glargine 300 units/mL 150 units QAM Insulin lispro 50 units TID meals held at [facility] held at [facility] Current HTN Medications: held at [facility] held at [facility] Amlodipine 10mg once daily Carvedilol 25mg BID held at [facility] Preventative Medications: ? On GEENA/ARB: Yes ? On Statin: Yes ? On ASA: Yes ROS: ? Patient denies CP, SOB, PEREZ, blurred vision, dizziness or lightheadedness ? Patient denies symptoms of hypoglycemia (sweating, anxiety, palpitations, hunger, and tremor) ? Patient denies symptoms of hyperglycemia (polyuria, polydipsia, polyphagia) ? Patient denies potential medication adverse effects DIET/EXERCISE/SOCIAL Hx: ? Started eating smaller portions ? Breakfast egg and muffin and banana ? Lunch ham salad on one piece of bread ? Supper pork shoulder and some mashed potatoes ? Beverages: 2 cans of diet pop in the last week MEDICATIONS: ? Pill bottles are not?present. ? Adherence: denies?missed doses. ? Pharmacy: [facility]? Rx coverage: [employer] ? Affordability: no issues ? Diabetes supplies: Relion ? Organization System: pillbox ACTIVE PROBLEM LIST Coronary Artery Disease S/P Angioplasty With Stent Uncontrolled Hypertension Hyperlipidemia With Target Ldl Less Than 70 Proteinuria Uncontrolled Type 2 Diabetes Mellitus With Insulin Therapy ([facility]) Myocardial Infarction ([facility]) Edema MELODIE (obstructive sleep apnea) AHI 11 Obesity, Class Iii, Bmi 40-49.9 (Morbid Obesity) ([facility]) PAST MEDICAL HISTORY Diagnosis Date - Diabetes ([facility]) - Hypertension - [place] (myocardial infarction) ([facility]) 03-12-09 stent placement - Myocardial infarction ([facility]) 03/16/2014 ALLERGIES Allergen Reactions - Pravachol [Pravasta* Intolerance Myalgias/arthralgias. Resolved off med. Current Outpatient Prescriptions: Insulin Syringe-Needle U-100 1 mL 31 gauge x 5/16 syrg insulin lispro (HUMALOG KWIKPEN) 100 unit/mL inpn Inject 50 Units subcutaneously w MEALS. empagliflozin (JARDIANCE) 10 mg tablet Take 1 tablet by mouth once daily. meloxicam (MOBIC) 15 mg tablet Take 1 tablet by mouth once daily as needed. Take with food. albuterol HFA (VENTOLIN HFA) 90 mcg/actuation inhaler Inhale 2 Puffs as instructed every 4 hours as needed for Wheezing/Shortness of Breath. Insulin [place], Disposable, 31 gauge x 1/4 ndle insulin glargine (TOUJEO SOLOSTAR U-300 INSULIN) 300 unit/mL (1.5 mL) inpn Inject 130 Units subcutaneously every morning. 80 units plus 50 units metFORMIN (GLUCOPHAGE) 1,000 mg tablet Take 1 tablet by mouth twice daily. amLODIPine (NORVASC) 10 mg tablet Take 1 tablet by mouth once daily. atorvastatin (LIPITOR) 40 mg tablet Take 1 tablet by mouth daily at bedtime. For cholesterol. carvedilol (COREG) 25 mg tablet Take 1 tablet by mouth twice daily with meals. hydroCHLOROthiazide (HYDRODIURIL, ESIDRIX) 25 mg tablet Take 1 tablet by mouth once daily. lisinopril (ZESTRIL, PRINIVIL) 40 mg tablet Take 1 tablet by mouth once daily. spironolactone (ALDACTONE) 100 mg tablet Take 1 tablet by mouth once daily. insulin syringe,safetyneedle 1 mL 31 gauge x 08/17 syrg Use three times daily with regular insulin omeprazole (PRILOSEC) 20 mg capsule Take 1 capsule by mouth once daily. EASY TOUCH 31 gauge x 3/16 ndle Use with meal-time insulin injections five times daily. beclomethasone (QVAR) 40 mcg/actuation inhaler Inhale 2 Puffs as instructed twice daily. CLOTRIMAZOLE (LOTRIMIN TOPICAL) Apply to affected area. aspirin, enteric coated (ASPIR-81) 81 mg EC tablet Take 1 tablet by mouth once daily. No current facility-administered medications for this visit. Rx meds not listed in EPIC: none OTCs: none Herbals: none GLYCEMIC CONTROL: ? Glucometer present at visit: No ? SMBG?s: Date Fasting AM 2 hr PP Before Lunch 2 hr PP Before Dinner 2 hr PP Bedtime 09/06 158 222 09/05 128 09/04 120 183 128 127 09/03 177 214 210 69 266 339 09/02 208 242 103 79 175 09/01 127 162 142 145 196 ? Hypoglycemia: one instance VITALS: BP 130/73 Pulse 70 Last 3 Encounter BP Readings: Date: BP: 08/23/2017 124/64 07/02/2017 152/82 06/29/2017 135/68 Wt: 145.6 kg (321 lb) BMI: 50.28 kg/(m2) LABS Lab Results Component Value Date HBA1C 10.8 05/30/2017 HBA1C 9.9 02/02/2017 HBA1C 9.4 09/07/2016 CMP: Glucose 317 05/30/2017 BUN 22 05/30/2017 Creatinine 1.48 05/30/2017 1.68 09/01/2017 Sodium 134 09/01/2017 Potassium 4.6 09/01/2017 Chloride 100 05/30/2017 CO2 18 05/30/2017 Protein, Total 7.2 02/02/2017 Albumin 3.8 02/02/2017 Calcium 9.5 05/30/2017 Alkaline Phosphatase 73 02/02/2017 Bilirubin, Total 0.3 02/02/2017 AST 32 02/02/2017 ALT 39 02/02/2017 GFR 45 ml/min on 09/01/2017 Estimated Creatinine Clearance: 79 mL/min (A) (based on SCr of 1.48 mg/dL (H)). Last Lipid Panel Lab Results Component Value Date CHOL 135 02/02/2017 Lab Results Component Value Date HDL 29 02/02/2017 Lab Results Component Value Date LDL 62 02/02/2017 Lab Results Component Value Date TG 219 02/02/2017 Albumin/Creat Ratio (mg/g) Date Value 02/02/2017 1,727 (H) PHARMACOTHERAPY ASSESSMENT/PLAN: 1. Uncontrolled type 2 diabetes mellitus with insulin therapy (HCC) - ICD9: 250.02, V58.67, ICD10: E11.65, Z79.4 (primary diagnosis) A1c goal < 8% per Consult (could consider tighter goal of < 7% d/t age), patient is not at goal (10.8% on 05/30/17). Due for recheck. SMBGs improving since [facility] discharge (increase in basal insulin and improvements in diety). Patient is compliant and tolerating current therapy. Will continue current regimen at this time. With high doses of basal insulin, suspect some absorption issues and/or insulin resistance. Patient does not tolerate GLP-1 therapy. Will continue to hold metformin and will d/c empagliflozin given potential for kidney injury. Metformin may be re-started given GFR > 30 but will hold until Nephrology appointment next week.?Renal fxn and LFTs WNL. ? CONTINUE insulin glargine 150 units QAM, lispro 50 units TID meals ? HOLD metformin until Nephrology appointment, can possibly re-start soon after ? Instructed patient to continue checking BGs and bring glucometer to next PharmD visit 2. Uncontrolled hypertension - ICD9: 401.9, ICD10: I10 BP goal <?140/90, pt is at goal on current therapy. At goal without three of the BP medicines held upon [facility] discharge. Tolerating and compliant with therapy. Will continue just the two therapies continued at discharge and monitor BP. If BP remains at goal in the future could add back just lisinopril low dose for renal protective effects. Renal fxn and K+ WNL. Na slightly low but improved from last BMP. ? CONTINUE amlodipine 10mg once daily and carvedilol 25mg BID ? HOLD lisinopril, HCTZ, spironolactone 3. Hyperlipidemia with target LDL less than 70 - ICD9: 272.4, ICD10: E78.5 Pt is on appropriate statin intensity (high intensity d/t clinical ASCVD). LFTs and renal fxn WNL. ? CONTINUE atorvastatin 40mg once daily Health Maintenance issues addressed: DILATED RETINAL EXAM due on 04/26/2017 Patient is scheduled to see PCP 09/16. Patient to return to clinic for PharmD f/u on 10/11. Patient verbalized understanding of instructions. Saman Parkinson, VikasD, BCPS Referring Provider: LEIDA CISNEROS [[id number]] Allergies As of Date: 09/06/2017 Noted Allergy Reaction PRAVACHOL (PRAVASTATIN SODIUM) 08/11/2009 5 - Intolerance Comments: Myalgias/arthralgias. Resolved off med. Date Reviewed: 08/23/2017 Reviewed by: Dominga Stauffer LPN - Fully Assessed Reason for Visit: Allied Health Visit [5] Cmt: DM follow-up Primary Visit Diagnosis:Uncontrolled type 2 diabetes mellitus with insulin therapy (HCC) [E11.65, Z79.4] Other Visit Diagnoses:Uncontrolled hypertension [I10] Hyperlipidemia with target LDL less than 70 [E78.5] Order(s):insulin glargine (TOUJEO SOLOSTAR U-300 INSULIN) 300 unit/mL (1.5 mL) inpnInject 150 Units subcutaneously every morning. 80 units plus 70 unitsDisp: 12 PenRfl: 3 Prescriptions as of 09/06/2017 Sig: INSULIN GLARGINE (U-300) 300 * Inject 150 Units subcutaneous* CEPHALEXIN 500 MG CAPSULE INSULIN LISPRO (U-100) 100 UN* Inject 50 Units subcutaneousl* MELOXICAM 15 MG TABLET Take 1 tablet by mouth once d* ALBUTEROL SULFATE HFA 90 MCG/* Inhale 2 Puffs as instructed * AMLODIPINE 10 MG TABLET Take 1 tablet by mouth once d* ATORVASTATIN 40 MG TABLET Take 1 tablet by mouth daily * CARVEDILOL 25 MG TABLET Take 1 tablet by mouth twice * OMEPRAZOLE 20 MG CAPSULE,ANAI* Take 1 capsule by mouth once * BECLOMETHASONE DIPROPIONATE 4* Inhale 2 Puffs as instructed * ASPIRIN 81 MG TABLET,DELAYED * Take 1 tablet by mouth once d* INSULIN SYRINGE-NEEDLE U-100 * PEN NEEDLE, DIABETIC 31 GAUGE* METFORMIN 1,000 MG TABLET Take 1 tablet by mouth twice * Patient not taking: Reported on 09/06/2017 HYDROCHLOROTHIAZIDE 25 MG TAB* Take 1 tablet by mouth once d* Patient not taking: Reported on 09/06/2017 LISINOPRIL 40 MG TABLET Take 1 tablet by mouth once d* Patient not taking: Reported on 09/06/2017 SPIRONOLACTONE 100 MG TABLET Take 1 tablet by mouth once d* Patient not taking: Reported on 09/06/2017 INSULIN SYRINGE WITH SAFETY N* Use three times daily with re* EASY TOUCH 31 GAUGE X 06/17 N* Use with meal-time insulin in* Problem List As Of Date 09/06/2017 Noted Resolved Coronary Artery Disease [I25.10] INVALID FOR* s/p Angioplasty with Stent INVALID FOR* Uncontrolled hypertension [I10] INVALID FOR* More... Hyperlipidemia with target LDL less than 70 [E7*INVALID FOR* Diabetes mellitus (HCC) [E11.9] INVALID FOR*10/15/2013 Proteinuria [R80.9] INVALID FOR* More... Uncontrolled type 2 diabetes mellitus with insu*INVALID FOR* Myocardial infarction (HCC) [I21.9] INVALID FOR* Edema [R60.9] INVALID FOR* MELODIE (obstructive sleep apnea) AHI 11 [G47.33] INVALID FOR* Obesity, Class III, BMI 40-49.9 (morbid obesity*INVALID FOR* Prescriptions ordered this encounter Disp Refills Start End INSULIN GLARGINE (U-300) 300 UNIT/ML* 12 P* 3 09/06/2017 09/06/2017 Route: SUBCUTANEOUS Sig: Inject 150 Units subcutaneously every morning. 80 units plus 50 units INSULIN GLARGINE (U-300) 300 UNIT/ML* 12 P* 3 09/06/2017 Route: SUBCUTANEOUS Sig: Inject 150 Units subcutaneously every morning. 80 units plus 70 units Medications Discontinued During This Encounter insulin glargine (TOUJEO SOLOSTAR U-* 9 Pen 3 06/29/2017 09/06/2017 Route: SUBCUTANEOUS Sig: Inject 130 Units subcutaneously every morning. 80 units plus 50 units Disc: Reason for discontinue is not on file. empagliflozin (JARDIANCE) 10 mg tabl* 30 t* 0 08/05/2017 09/06/2017 Route: ORAL Sig: Take 1 tablet by mouth once daily. Disc: Reason for discontinue is not on file. insulin glargine (TOUJEO SOLOSTAR U-* 12 P* 3 09/06/2017 09/06/2017 Route: SUBCUTANEOUS Sig: Inject 150 Units subcutaneously every morning. 80 units plus 50 units Disc: Reason for discontinue is not on file. CLOTRIMAZOLE (LOTRIMIN TOPICAL) 09/06/2017 Class: Historical Med Route: TOPICAL Sig: Apply to affected area. Disc: Course of therapy completed Encounter Status:Closed by TESHA (PHARMACIST)SAMAN on 09/06/17 RENAL PROFILE Collected: 09/01/2017 Status: F Source: [place] 10:45 AM [facility] REPOSITORY TYPE CODE TESTS RESULT OUT OF RANGE REFERENCE UNITS LAB L501.0100 74-106 mg/dL High GLU 214 Result Comment: Glucose result greater than or equal to 200 mg/dL suggests DIABETES MELLITUS per A.D.A. criteria. Please note revised GLUCOSE reference range effective 2017. LAB L501.1000 7-18 mg/dL High BUN 30 LAB L501.1100 0.70-1.30 mg/dL High CREAT,SERUM 1.68 Result Comment: The validity of the calculated GFR AND GFRAA in patients over 70 years has not been determined. Clinical correlation is essential. LAB L501.1110 >60 mL/min Low EST GFR 45 Result Comment: Non- GFR Calc LAB L501.1115 >60 mL/min Low EST GFR - AA 55 Result Comment: GFR Calc LAB L501.1255 ml/min Normal Estimated CRCL 47.00 LAB L501.1300 10-20 RATIO Normal BUN/CRE 17.9 LAB L501.1800 3.2-5. g/dL Low 0 ALB 2.1 LAB L501.2200 8.5-10 mg/dL Low .1 CA 7.9 LAB L501.2300 2.5-4. mg/dL Normal 9 PHOS 2.9 LAB L501.5300 136-14 mmol/L Low 5 NA 134 LAB L501.5600 3.5-5. mmol/L Normal 1 K 4.6 LAB L501.5900 98-107 mmol/L High CL 108 LAB L501.6100 21.0-3 mmol/L Low 2.0 CO2 17.0 Performed By: #### L500.3600 #### [facility] [place], [address] DISCHARGE SUMMARY Observed: 09/01/2017 Status: F Source: [place] 10:19 AM [facility] REPOSITORY [facility] Medical Records Department [address] [place] [address] Discharge Summary 09/01/17 1010 MR#: [id number] Acct: [id number] Name: JAKE BLANKENSHIP Rep #: [id number] : 1965 52 From: Butch Schmitz DO PCP: Leida Cisneros MD Status: ADM IN Location: [place] [address] Discharge Date and Diagnosis - Problem List Patient Problems: Active and Suspected Problems Cellulitis (Acute) Severe sepsis (Acute) Date of Admission: 08/29/17 Date of Discharge: 09/01/17 - Primary Discharge Diagnosis Active and Suspected Problems Cellulitis (Acute) Severe sepsis (Acute) - Secondary Discharge Diagnosis Chronic Problems Diabetes mellitus out of control (Chronic) Hyperlipidemia (Chronic) Benign essential hypertension (Chronic) Morbid obesity (Chronic) Coronary artery arteriosclerosis (Chronic) Lymphedema of left leg (Chronic) Left leg swelling (Chronic) Prostatism (Chronic) GERD (gastroesophageal reflux disease) (Chronic) Chronic venous insufficiency (Chronic) Edema of left lower extremity (Chronic) Hospital Course and Treatment Imaging Results: Clinical Impression(s) from Imaging Studies Chest X-Ray 08/29/17 12:19 IMPRESSION: Mild cardiomegaly. Postoperative changes of median sternotomy. No focal consolidation. Electronically Signed: Jakub Manrique DO at 14:03 EDT Tel , Service support , Renal Ultrasound 08/29/17 14:43 IMPRESSION: No evidence of hydronephrosis. Punctate stone right kidney. Probable Dromedary hump versus 3.7 cm isoechoic mass right kidney recommend consideration for follow-up study and/or comparison to a prior study if possible. Electronically Signed: Destini Fisher MD at 23:44 EDT Tel , Service support , Operations: None Procedures: None Summary of Care Provided: The patient is a 52 year old M presents with LLE cellulitis. Improved with cefazolin. Patient will be discharged with keflex. 1. Severe sepsis * Present on admission * Due to cellulitis * Clinically improved 2. Left lower extremity cellulitis * Improving * Seen by infectious disease who has changed the antibiotics over to cefazolin * To be discharged with oral antibiotics * Await final wound cultures which is showing mixed gram-positive organisms * DW Dr. Kingsley: change to Keflex 500 TID. 3. Acute kidney disease versus chronic kidney disease progression * Creatinine unchanged, essentially * off of IVF * Nephrology following * Will need follow-up with nephrology as well as follow-up repeat ultrasound to evaluate the dromedary hump versus isoechoic mass in the right kidney * Follow up with Dr. Raymundo as outpt.[] Discharge Diet: Low fat/ Low Cholesterol, 1800 Calorie Control Diet Discharge Activity: Return to Normal Activity Weight Bearing Status: Full weight bearing Keep extremity elevated above heart level: Left Leg Call your doctor if your incision/area has: Increased Pain/ Swelling, Increased Redness Call your doctor if you observe: Fever of 101 or Higher Home Medications: Medications to take at Discharge Amlodipine [Norvasc] 10 mg PO DAILY 10/16/15 Aspirin [Aspirin, Baby] 81 mg PO DAILY@0800 10/16/15 Atorvastatin Calcium [Lipitor] 40 mg PO DAILY 10/16/15 Carvedilol [Coreg (Beta William)] 25 mg PO BID 08/29/17 Insulin Glargine,Hum.rec.anlog [Toujeo Solostar] 150 unit SQ DAILY 08/29/17 Insulin Lispro [Humalog Tyree Kwikpen] 50 unit SQ TIDCM 08/29/17 Omeprazole [Prilosec] 20 mg PO DAILY 08/29/17 Cephalexin [Keflex] 500 mg PO Q8 #21 cap 09/01/17 Oxycodone [Oxyir] 5 mg PO Q8H PRN 2 Days #6 tablet 09/01/17 Following Prescrptions Were Given to Patient: Cephalexin [Keflex] 500 mg PO Q8 #21 cap Oxycodone [Oxyir] 5 mg PO Q8H PRN 2 Days #6 tablet PRN Reason: Severe Pain (6-10) Primary Care Physician: Leida Cisneros MD [Primary Care Provider] - Within 2 Weeks Please Follow Up With: Catherine Raymundo DO - chronic kidney disease When: 2-4 weeks Disposition: Home Minutes spent on discharge:: 32 Patient Condition:: Good Medical Necessity - Tobacco Use Smoking Status: Never smoker Tobacco Use: Non-smoker Meaningful Use Info Meaningful Use Diagnoses (Choose all that apply): None applicable Code Visit Inpatient E AND M: 28846 Disch Hosp 09/01/17 1019 <Electronically signed by Butch Schmitz DO> Date Butch Schmitz DO Cosigner Signature (if applicable): Date CC: Leida Cisneros MD; Butch Schmitz DO Signed DISCHARGE INSTRUCTION Observed: 09/01/2017 Status: F Source: [place] 10:10 AM [facility] REPOSITORY [facility] Medical Records Department [address] [place] [address] Instructions for Home/Discharge Instructions 09/01/17 1008 MR#: [id number] Acct: [id number] Name: JAKE BLANKENSHIP Rep #: [id number] : 1965 52 From: Butch Schmitz DO PCP: Leida Cisneros MD Status: ADM IN - Discharge Diagnoses Current Active Problems: Current Active and Chronic Problems Cellulitis (Acute) Severe sepsis (Acute) You will use the following diet at home:: Calorie/Carbohydrate Controlled (specify 1200, 1400, etc) - 1800 kcal/day, Cardiac Your food should be the consistency of: Regular Your liquids should be the consistency of: Regular/Thin Discharge Activity: Return to Normal Activity Weight Bearing Status: Full weight bearing Keep extremity elevated above heart level: Left Leg Call your doctor if your incision/area has: Increased Pain/ Swelling, Increased Redness Call your doctor if you observe: Fever of 101 or Higher Allergies/Adverse Reactions: Allergies pravastatin sodium [From Pravachol] Adverse Reaction (Intermediate, Verified 08/29/17 11:32) Other ACHY MUSCLES Medications to take at Discharge Amlodipine [Norvasc] 10 mg PO DAILY 10/16/15 Aspirin [Aspirin, Baby] 81 mg PO DAILY@0800 10/16/15 Atorvastatin Calcium [Lipitor] 40 mg PO DAILY 10/16/15 Carvedilol [Coreg (Beta William)] 25 mg PO BID 08/29/17 Insulin Glargine,Hum.rec.anlog [Toujeo Solostar] 150 unit SQ DAILY 08/29/17 Insulin Lispro [Humalog Tyree Kwikpen] 50 unit SQ TIDCM 08/29/17 Omeprazole [Prilosec] 20 mg PO DAILY 08/29/17 Cephalexin [Keflex] 500 mg PO Q8 #21 cap 09/01/17 Oxycodone [Oxyir] 5 mg PO Q8H PRN 2 Days #6 tablet 09/01/17 The following prescriptions were given: Cephalexin [Keflex] 500 mg PO Q8 #21 cap Oxycodone [Oxyir] 5 mg PO Q8H PRN 2 Days #6 tablet PRN Reason: Severe Pain (-01/11) Primary Care Physician: Leida Cisneros MD [Primary Care Provider] - Within 2 Weeks Please Follow Up With: Catherine Raymundo DO - chronic kidney disease When: 2-4 weeks Proposed Discharge Date: 09/01/17 09/01/17 1010 <Electronically signed by Butch Schmitz DO> Date Butch Schmitz DO CC: Leida Cisneros MD; Catherine Raymundo DO; Rafael Kingsley MD CONSULTATION Observed: 09/01/2017 Status: F Source: [place] 8:40 AM [facility] REPOSITORY [facility] Medical Records Department [address] [place] [address] Consultation 08/30/17 08 MR#: [id number] Acct: [id number] Name: JAKE BLANKENSHIP Rep #: [id number] : 1965 52 From: Catherine Raymundo DO PCP: Leida Cisneros MD Status: ADM IN Location: [id number] [id number] Consultation - Renal 08/30/17 PCP/ Referring MD: Requesting physician: Dr Guerrier Primary care physician: Leida Cisneros Reason for Consultation:: TALITA - History of Present Illness History of Present Illness: The patient is a 52 year old obese M with past medical history for type II DM, HTN, HPL, MELODIE, noncompliance with CPAP and diabetes with elevated A1C of 10.8 on 05/30/17 admitted for left lower extremity redness and swelling for 3 days. He complains of chills, fatigue. He noticed left leg redness while camping out on Tuesday progressively worse by Tuesday. States was wearing shorts. Denied going barefoot. Denies palpitations or chest pain. Denied any injury to his leg or insect bites or bruises. Hx left lower extremity cellulitis in the past with MRSA. He denied history of DVT. He has CAD status post CABG 4 years ago with veins harvested from his left leg. Creatinine in October 2015 was 1.29 in hospital records. Creatinine from [facility] records was 1.48 on 05/30/17 and February 2017, 1.2 in September 2016. Creatinine on admit was 2.53. He is on prinivil, aldactone, Jardiance and Glucophage along with insulin at home. He has a history of NSAID use with Meloxicam and ibuprofen for back pain and leg pain but not on a regular basis. Denied any urinary complaints. States sugars are in the mid 200s in the morning which is good for him according to the patient. - Allergies Allergies: Allergies pravastatin sodium [From Pravachol] Adverse Reaction (Intermediate, Verified 08/29/17 11:32) Other ACHY MUSCLES - Current Medications Current Medications: Current Medications Acetaminophen (Tylenol) 650 mg PO Q6H PRN PRN PRN Reason: Mild Pain (scale 0-3)/T>100.7 Last Admin: 08/29/17 20:22 Dose: 650 mg Amlodipine Besylate (Norvasc) 10 mg PO DAILY [facility] Aspirin (Aspirin, Baby) 81 mg PO DAILY@0800 [facility] Atorvastatin Calcium (Lipitor) 40 mg PO DAILY [facility] Bisacodyl (Dulcolax) 5 mg PO DAILY PRN PRN PRN Reason: Constipation Carvedilol (Coreg) 25 mg PO BID [facility] Last Admin: 08/29/17 22:19 Dose: 25 mg Dextrose (D50w Syringe) 0 gm IV X1 PRN; Protocol PRN Reason: Hypoglycemia Glucagon () 1 mg IM .X1 PRN PRN Reason: Hypoglycemia Heparin Sodium (Porcine) (Heparin Na) 5,000 unit SC Q12 [facility] Last Admin: 08/29/17 22:18 Dose: 5,000 u Hydralazine HCl (Apresoline Iv) 5 mg IV Q6H PRN PRN PRN Reason: BLOOD PRESSURE Sodium Chloride () 1,000 mls @ 100 mls/hr IV .Q10H [facility] Last Admin: 08/30/17 03:36 Dose: 100 mls/hr Piperacillin Sod/Tazobactam Sod (Zosyn) 3.375 gm in 50 mls @ 12.5 mls/hr IV Q8 [facility] Last Admin: 08/30/17 05:31 Dose: 12.5 mls/hr Vancomycin HCl 1,250 mg/ (Sodium Chloride) 275 mls @ 183.333 mls/hr IV Q24H [facility] Insulin Detemir (Levemir (Bkc)) 150 units SC DAILY [facility] Insulin Human Lispro (Humalog Kwikpen (Bkc)) 50 unit SC TIDCM [facility] Last Admin: 08/29/17 18:42 Dose: Not Given Insulin Human Lispro (Humalog Kwikpen (Bkc)) 0 unit SQ ACHS [facility] PRN Reason: Protocol Last Admin: 08/29/17 22:20 Dose: 1 u Magnesium Hydroxide (Milk Of Magnesia) 30 ml PO DAILY PRN PRN PRN Reason: Constipation Morphine Sulfate () 1 - 2 mg IV Q4H PRN PRN PRN Reason: Moderate Pain (pain scale 4-5) Ondansetron HCl (Zofran) 4 mg IV Q8H PRN PRN PRN Reason: Nausea Oxycodone HCl (Oxyir) 5 mg PO Q4H PRN PRN PRN Reason: Moderate Pain (pain scale 4-5) Last Admin: 08/29/17 20:22 Dose: 5 mg Pantoprazole Sodium (Protonix) 20 mg PO DAILY [facility] Psyllium Hydrophilic Mucilloid (Metamucil) 1 packet PO DAILY PRN PRN PRN Reason: CONSTIPATION Sodium Chloride () 5 - 30 ml IV UD PRN PRN Reason: SALINE FLUSH - Past Medical History Past Medical History (Chronic Problems): Chronic Problems Diabetes mellitus out of control (Chronic) Hyperlipidemia (Chronic) Benign essential hypertension (Chronic) Morbid obesity (Chronic) Coronary artery arteriosclerosis (Chronic) Lymphedema of left leg (Chronic) Left leg swelling (Chronic) Prostatism (Chronic) GERD (gastroesophageal reflux disease) (Chronic) Chronic venous insufficiency (Chronic) Edema of left lower extremity (Chronic) - Past Surgical History Surgical History: coronary bypass surgery, - - Patient underwent coronary stent placement in 2008. He underwent coronary revascularization in March 2014, at which time 5 coronary bypass grafts were performed. Patient has a history of right groin wound debridement for MRSA. - Social History Smoking Status: Never smoker Alcohol: None Drugs: None - Family History Paternal History Items: Hypertension Maternal History Items: Cancer - brain, Seizures Review of Systems Constitutional: Reports: Chills, Weakness. Denies: Anorexia, Fever Eyes: Denies: Blurred vision HEENT: Denies: Head Aches Cardiovascular: Reports: Edema - Redness and swelling in the left lower extremity. Denies: Chest Pain Patient Problems: Active and Suspected Problems Cellulitis (Acute) Severe sepsis (Acute) - Physical Exam General: Alert, Oriented x3, Cooperative, No apparent distress HEENT: PERRLA, EOMI Oral: Moist Mucosa Neck: Supple Lungs: Clear to auscultation Cardiovascular: Regular rate Abdomen: Bowel Sounds Present, Soft, Non Tender, Non-Distended, Obese Extremities: Edema - F lower extremity Skin: Rash Present - Erythema left lower extremity with tenderness to light touch Musculoskeletal: No Muscle Wasting Neurological: Cranial nerves II-XII grossly intact Psych/Mental Status: Normal Affect, Alert and oriented to time, place, person, mood and affect Vital Signs Temp Pulse Resp BP Pulse Ox 98.2 F 72 18 131/64 H 100 08/30/17 03:43 08/30/17 08:04 08/30/17 03:43 08/30/17 03:43 08/30/17 03:43 Oxygen Delivery Method Room Air Weight: 142.4 kg Body Mass Index (BMI) 49.1 Intake and Output for Last 24 Hours Intake Total 1097 / 1097 1185 / 1185 Balance 1097 / 1097 1185 / 1185 Laboratory Tests Past 24 Hrs WBC RBC Hgb Hct MCV MCH MCHC RDW RDW Differential Plt Count POC Glucose POC Glucose 178 H 189 H Clinical Impression(s) from Imaging Studies Chest X-Ray 08/29/17 12:19 IMPRESSION: Mild cardiomegaly. Postoperative changes of median sternotomy. No focal consolidation. Electronically Signed: Jakub Manrique DO at 14:03 EDT Tel , Service support , Renal Ultrasound 08/29/17 14:43 IMPRESSION: No evidence of hydronephrosis. Punctate stone right kidney. Probable Dromedary hump versus 3.7 cm isoechoic mass right kidney recommend consideration for follow-up study and/or comparison to a prior study if possible. Electronically Signed: Destini Fisher MD at 23:44 EDT Tel , Service support , Assessment/Plan Active and Suspected Problems Cellulitis (Acute) Severe sepsis (Acute) 1. Acute on chronic kidney disease stage II likely related to medication and cellulitis. Discontinue aldactone, GEENA inhibitor, avoid nephrotoxins. Avoid NSAID use. Creatinine appears to be at 1.2-1.4 with underlying diabetic kidney disease. Serum creatinine 1.2 in September 2016. Renal US with dromedary hump. follow up with repeat US in 6 months. 2. Acute cellulitis left lower extremity continue IV antibiotic therapy. Monitor vancomycin levels while on antibiotic therapy. 3. Diabetes mellitus type 2 with poor diabetic control. Discontinue metformin and Giardia is due to his acute renal failure. Hemoglobin A1c 10.8 from 05/30/17 with Urine microalbumin to creatinine ratio 1727 mg/gram creatinine. 4. hypertention with stable blood pressure 5. CAD status post CABG 6. Morbid obesity 7. MELODIE noncompliant with CPAP. 8. Metabolic acidosis suspect due to renal failure, metformin, poor sugar control. 09/01/17 0840 <Electronically signed by Catherine Raymundo DO> Date Catherine Raymundo DO Cosigner Signature (if applicable): Date CC: Leida Cisneros MD; Catherine Raymundo DO; Rafael Kingsley MD Signed BEDSIDE GLUCOSE Collected: 09/01/2017 Status: F Source: [place] 7:37 AM [facility] REPOSITORY TYPE CODE TESTS RESULT OUT OF RANGE REFERENCE UNITS LAB L501.080 70-110 mg/dL Normal BEDSIDE GLU 101 Result Comment: MANAGEMENT OF PATIENT CARE PER NURSING PROTOCOL Performed By: #### L501.080 #### [facility] Point of Care [address] [place] [address] BEDSIDE GLUCOSE Collected: 08/31/2017 Status: F Source: [place] 9:21 PM [facility] REPOSITORY TYPE CODE TESTS RESULT OUT OF REFERENCE UNITS RANGE LAB L501.080 70-110 mg/dL High BEDSIDE GLU 116 Result Comment: MANAGEMENT OF PATIENT CARE PER NURSING PROTOCOL Performed By: #### L501.080 #### [facility] Point of Care [address] [place] [address] BEDSIDE GLUCOSE Collected: 08/31/2017 Status: F Source: [place] 4:14 PM [facility] REPOSITORY TYPE CODE TESTS RESULT OUT OF REFERENCE UNITS RANGE LAB L501.080 70-110 mg/dL High BEDSIDE GLU 182 Result Comment: MANAGEMENT OF PATIENT CARE PER NURSING PROTOCOL Performed By: #### L501.080 #### [facility] Point of Care [address] [place] [address] BEDSIDE GLUCOSE Collected: 08/31/2017 Status: F Source: [place] 11:33 AM [facility] REPOSITORY TYPE CODE TESTS RESULT OUT OF REFERENCE UNITS RANGE LAB L501.080 70-110 mg/dL High BEDSIDE GLU 182 Result Comment: MANAGEMENT OF PATIENT CARE PER NURSING PROTOCOL Performed By: #### L501.080 #### [facility] Point of Care [address] [place] [address] BEDSIDE GLUCOSE Collected: 08/31/2017 Status: F Source: [place] 10:17 AM [facility] REPOSITORY TYPE CODE TESTS RESULT OUT OF REFERENCE UNITS RANGE LAB L501.080 70-110 mg/dL High BEDSIDE GLU 191 Result Comment: MANAGEMENT OF PATIENT CARE PER NURSING PROTOCOL Performed By: #### L501.080 #### [facility] Point of Care [address] [place], [place] [id number] BEDSIDE GLUCOSE Collected: 08/31/2017 Status: F Source: [place] 7:30 AM [facility] REPOSITORY TYPE CODE TESTS RESULT OUT OF RANGE REFERENCE UNITS LAB L501.080 70-110 mg/dL Normal BEDSIDE GLU 98 Result Comment: MANAGEMENT OF PATIENT CARE PER NURSING PROTOCOL Performed By: #### L501.080 #### [facility] Point of Care [address] [place], [place] [address] CBC W/DIFF, AUTOMATED Collected: 08/31/2017 Status: F Source: [place] 5:35 AM [facility] REPOSITORY TYPE CODE TESTS RESULT OUT OF RANGE REFERENCE UNITS LAB L100.1000 4.4-11.0 K/mm3 Normal WBC 10.5 LAB L100.1200 4.6-6.2 M/mm3 Low RBC 3.79 LAB L100.1300 13.0-16.5 g/dl Low HGB 9.7 LAB L100.1400 40-54 % Low HCT 30.0 LAB L100.1500 80-94 fL Low MCV 79.2 LAB L100.1600 27.0-32.0 pg Low MCH 25.6 LAB L100.1700 32-36 g/gl Normal MCHC 32.3 LAB L100.1810 11.6-14.6 % High RDW CV 15.0 LAB L100.1820 35.1-43.9 fl Normal RDW SD 42.6 LAB L100.1900 150-450 K/mm3 Normal PLT 179 LAB L100.2000 6.2-12.0 fl Normal MPV 10.1 LAB L100.2100 47-70 % High NEUT% 78.9 LAB L100.2200 19-41 % Low LY% 9.3 LAB L100.2300 0-10 % Normal MONO% 9.6 LAB L100.2400 0-5 % Normal EO% 1.5 LAB L100.2500 0-1 % Normal BASO% 0.2 LAB L100.2550 0.0-0.9 % Normal IM GRAN % 0.500 Result Comment: IG% - Immature Granulocytes (promyelocytes, myelocytes and metamyelocytes) > 1% indicates that a LEFT SHIFT is Present. LAB L100.2620 2.0-7.7 X10 3/uL High Absolute Neut 8.3 LAB L100.2720 0.83-4.51 X10 3/ul Normal Absolute Lymph 0.97 Performed By: #### L100.0100 #### [facility] [address] [place], [place], [address] BASIC METABOLIC Collected: 08/31/2017 Status: F Source: [place] PROFILE (BMP) 5:35 AM [facility] REPOSITORY TYPE CODE TESTS RESULT OUT OF RANGE REFERENCE UNITS LAB L501.0100 74-106 mg/dL Normal GLU 87 Result Comment: Please note revised GLUCOSE reference range effective 2017. LAB L501.1000 7-18 mg/dL High BUN 39 LAB L501.1100 0.70-1.30 mg/dL High CREAT,SERUM 1.96 Result Comment: The validity of the calculated GFR AND GFRAA in patients over 70 years has not been determined. Clinical correlation is essential. LAB L501.1110 >60 mL/min Low EST GFR 38 Result Comment: Non- GFR Calc LAB L501.1115 >60 mL/min Low EST GFR - AA 46 Result Comment: GFR Calc LAB L501.1255 ml/min Normal Estimated CRCL 40.28 LAB L501.1300 10-20 RATIO Normal BUN/CRE 19.9 LAB L501.2200 8.5-10 mg/dL Low .1 CA 8.3 LAB L501.5300 136-14 mmol/L Normal 5 NA 137 LAB L501.5600 3.5-5. mmol/L Normal 1 K 4.1 LAB L501.5900 98-107 mmol/L High CL 109 LAB L501.6100 21.0-3 mmol/L Low 2.0 CO2 17.0 LAB L501.6200 5-15 Normal GAP 11 Performed By: #### L500.2500 #### [facility] [address] [place], [place], [address] BEDSIDE GLUCOSE Collected: 08/30/2017 Status: F Source: [place] 9:39 PM [facility] REPOSITORY TYPE CODE TESTS RESULT OUT OF RANGE REFERENCE UNITS LAB L501.080 70-110 mg/dL Normal BEDSIDE GLU 97 Result Comment: MANAGEMENT OF PATIENT CARE PER NURSING PROTOCOL Performed By: #### L501.080 #### [facility] [facility] Point of Care [address] [place] [address] BEDSIDE GLUCOSE Collected: 08/30/2017 Status: F Source: [place] 4:58 PM [facility] REPOSITORY TYPE CODE TESTS RESULT OUT OF REFERENCE UNITS RANGE LAB L501.080 70-110 mg/dL High BEDSIDE GLU 182 Result Comment: MANAGEMENT OF PATIENT CARE PER NURSING PROTOCOL Performed By: #### L501.080 #### [facility] Point of Care [address] [place] [address] CONSULTATION Observed: 08/30/2017 Status: F Source: [place] 12:38 PM [facility] REPOSITORY [facility] Medical Records Department [address] [place] [address] Consultation 08/30/17 1226 MR#: [id number] Acct: [id number] Name: JAKE BLANKENSHIP Rep #: [id number] : 1965 52 From: Rafael Kingsley MD PCP: Leida Cisneros MD Status: ADM IN Y Location: [facility] [id number] Problem List (1) Cellulitis Status: Acute Qualifiers: Site of cellulitis: extremity Site of cellulitis of extremity: lower extremity Laterality: left Qualified Code(s): L03.116 - Cellulitis of left lower limb Reason for Consult: cellulitis Consulted by: Dr. Schmitz History of Present Illness: The patient is a 52 year old M with some chronic LLE swelling s/p vein harvesting several years ago who presented with 3-4 days of progressive L sinclair/calf redness/pain/warmth/swelling. No inciting event. No trauma. No open wounds. No animal bites/scratches. No drainage or h/o MRSA. Had similar episode 10/2015, treated by Dr. Lake. Mild chills prior to presentation. Came to ED, wbc was 17, started on vanc/zosyn. Feeling better, redness starting to recede. Full ROS performed and neg except as noted above. - Medical History Past Medical History (Chronic Problems): Chronic Problems Diabetes mellitus out of control (Chronic) Hyperlipidemia (Chronic) Benign essential hypertension (Chronic) Morbid obesity (Chronic) Coronary artery arteriosclerosis (Chronic) Lymphedema of left leg (Chronic) Left leg swelling (Chronic) Prostatism (Chronic) GERD (gastroesophageal reflux disease) (Chronic) Chronic venous insufficiency (Chronic) Edema of left lower extremity (Chronic) Allergies/Adverse Reactions: Allergies pravastatin sodium [From Pravachol] Adverse Reaction (Intermediate, Verified 08/29/17 11:32) Other ACHY MUSCLES Home Medications: Ambulatory Orders Medication Instructions Recorded Amlodipine [Norvasc] 10 mg PO DAILY 10/16/15 Aspirin [Aspirin, Baby] 81 mg PO DAILY@0800 10/16/15 Atorvastatin Calcium [Lipitor] 40 mg PO DAILY 10/16/15 - Social History Tobacco Use: non-smoker Vital Signs Temp Pulse Resp BP Pulse Ox 98.9 F 75 18 150/81 H 100 08/30/17 10:22 08/30/17 10:22 08/30/17 10:22 08/30/17 10:22 08/30/17 10:22 Oxygen Delivery Method Room Air Weight: 142.4 kg Body Mass Index (BMI) 49.1 Laboratory Tests Past 24 Hrs WBC RBC Hgb Hct MCV MCH MCHC RDW RDW Differential Plt Count - Other Studies Radiology: [] reviewed Other Studies: [] Route of nutrition/ use of supplements: [] Nutritional Intake: [] IV Site: [] Burt Catheter: [] - Physical Exam General: Alert, Oriented x3, Cooperative, No apparent distress HEENT: Atraumatic, PERRLA, EOMI Neck: Supple, No Nodes Lungs: Clear to auscultation, Normal air movement Cardiovascular: Regular rate, Regular Rhythm Abdomen: Bowel Sounds Present, Soft, Non Tender, Non-Distended, Obese Extremities: Edema - LLE edema Skin: Rash Present - fading erythema and mild warmth over L sinclair/calf IV Site: Peripheral, without redness Musculoskeletal: No Tenderness to Palpation of Joints or Extremities Neurological: Cranial nerves II-XII grossly intact - Assessment/Plan Antibiotics: [] Assessment/Plan: [] Active and Suspected Problems Cellulitis (Acute) Severe sepsis (Acute) LLE cellulitis - improving. Narrow vanc/zosyn to cefazolin. No DVT seen on doppler. Plan will be for him to go home on oral abx. TALITA on CKD - neph following. Will follow, thank you. 08/30/17 1238 <Electronically signed by Rafael Kingsley MD> Date Rafael Kingsley MD Cosigner Signature (if applicable): Date CC: Leida Cisneros MD; Catherine Raymundo DO; Rafael Kingsley MD Signed BEDSIDE GLUCOSE Collected: 08/30/2017 Status: F Source: [place] 12:03 PM [facility] REPOSITORY TYPE CODE TESTS RESULT OUT OF REFERENCE UNITS RANGE LAB L501.080 70-110 mg/dL High BEDSIDE GLU 135 Result Comment: MANAGEMENT OF PATIENT CARE PER NURSING PROTOCOL Performed By: #### L501.080 #### [facility] Point of Care [address] [place] [address] BEDSIDE GLUCOSE Collected: 08/30/2017 Status: F Source: [place] 8:12 AM [facility] REPOSITORY TYPE CODE TESTS RESULT OUT OF REFERENCE UNITS RANGE LAB L501.080 70-110 mg/dL High BEDSIDE GLU 230 Result Comment: MANAGEMENT OF PATIENT CARE PER NURSING PROTOCOL Performed By: #### L501.080 #### [facility] Point of Care [address] [place] [address] CBC W/DIFF, AUTOMATED Collected: 08/30/2017 Status: F Source: [place] 5:48 AM [facility] REPOSITORY TYPE CODE TESTS RESULT OUT OF RANGE REFERENCE UNITS LAB L100.1000 4.4-11.0 K/mm3 High WBC 11.9 LAB L100.1200 4.6-6.2 M/mm3 Low RBC 4.02 LAB L100.1300 13.0-16.5 g/dl Low HGB 10.5 LAB L100.1400 40-54 % Low HCT 32.1 LAB L100.1500 80-94 fL Low MCV 79.9 LAB L100.1600 27.0-32.0 pg Low MCH 26.1 LAB L100.1700 32-36 g/gl Normal MCHC 32.7 LAB L100.1810 11.6-14.6 % High RDW CV 14.9 LAB L100.1820 35.1-43.9 fl Normal RDW SD 43.1 LAB L100.1900 150-450 K/mm3 Normal PLT 191 LAB L100.2000 6.2-12.0 fl Normal MPV 10.5 LAB L100.2100 47-70 % High NEUT% 85.2 LAB L100.2200 19-41 % Low LY% 7.2 LAB L100.2300 0-10 % Normal MONO% 6.5 LAB L100.2400 0-5 % Normal EO% 0.6 LAB L100.2500 0-1 % Normal BASO% 0.2 LAB L100.2550 0.0-0.9 % Normal IM GRAN % 0.300 Result Comment: IG% - Immature Granulocytes (promyelocytes, myelocytes and metamyelocytes) > 1% indicates that a LEFT SHIFT is Present. LAB L100.2620 2.0-7.7 X10 3/uL High Absolute Neut 10.1 LAB L100.2720 0.83-4.51 X10 3/ul Normal Absolute Lymph 0.86 Performed By: #### L100.0100 #### [facility] [address] [place] [address]. [place], [place], [id number] BASIC METABOLIC Collected: 08/30/2017 Status: F Source: [place] PROFILE (BMP) 5:48 AM [facility] REPOSITORY TYPE CODE TESTS RESULT OUT OF RANGE REFERENCE UNITS LAB L501.0100 74-106 mg/dL High GLU 221 Result Comment: Glucose result greater than or equal to 200 mg/dL suggests DIABETES MELLITUS per A.D.A. criteria. Please note revised GLUCOSE reference range effective 2017. LAB L501.1000 7-18 mg/dL High BUN 47 LAB L501.1100 0.70-1.30 mg/dL High CREAT,SERUM 2.56 Result Comment: The validity of the calculated GFR AND GFRAA in patients over 70 years has not been determined. Clinical correlation is essential. LAB L501.1110 >60 mL/min Low EST GFR 28 Result Comment: Non- GFR Calc LAB L501.1115 >60 mL/min Low EST GFR - AA 34 Result Comment: GFR Calc LAB L501.1255 ml/min Normal Estimated CRCL 30.84 LAB L501.1300 10-20 RATIO Normal BUN/CRE 18.4 LAB L501.2200 8.5-10 mg/dL Low .1 CA 8.4 LAB L501.5300 136-14 mmol/L Low 5 NA 132 LAB L501.5600 3.5-5. mmol/L Normal 1 K 4.7 LAB L501.5900 98-107 mmol/L Normal CL 104 LAB L501.6100 21.0-3 mmol/L Low 2.0 CO2 15.0 LAB L501.6200 5-15 Normal GAP 13 Performed By: #### L500.2500 #### [facility] [address] [place], [place], [address] BEDSIDE GLUCOSE Collected: 08/29/2017 Status: F Source: [place] 10:09 PM [facility] REPOSITORY TYPE CODE TESTS RESULT OUT OF REFERENCE UNITS RANGE LAB L501.080 70-110 mg/dL High BEDSIDE GLU 178 Result Comment: MANAGEMENT OF PATIENT CARE PER NURSING PROTOCOL Performed By: #### L501.080 #### [facility] Point of Care [address] [place] [address] URINALYSIS, COMPLETE Collected: 08/29/2017 Status: F Source: [place] 8:21 PM [facility] REPOSITORY Order Comment: Order Date: 08/29/17 How was Urine Obtained? CLEAN CATCH TYPE CODE TESTS RESULT OUT OF RANGE REFERENCE UNITS LAB L400.3000 Yellow COLOR Normal Yellow LAB L400.3050 Clear Normal CLARITY Clear LAB L400.3200 Normal mg/dl High GLUCOSE, UR 1000 LAB L400.3300 Negative mg/dL Normal BILIRUBIN URINE Negative LAB L400.3400 Negative mg/dl High 5 KETONE UR LAB L400.3465 1.002-1.030 Normal SP.GR. DIPSTX 1.015 LAB L400.3550 5.0 - 8.0 pH UR Normal 6.0 LAB L400.3600 Negative mg/dl High PROT DIPSTX 500 LAB L400.3700 Normal mg/dl Normal UROBILI Normal LAB L400.3750 Negative Normal NITRITE UR Negative LAB L400.3780 Negative /ul High OCCULT BLOOD-UR 150 LAB L400.3800 Negative /ul LEUK Normal ESTERASE Negative LAB L400.4050 0-5 /hpf WBC Normal 0-5 SEEN LAB L400.4100 0-5 /hpf Normal RBC-UA 0-5 SEEN LAB L400.4150 0-5 /hpf SQUAM 0 Normal EPI SEEN LAB L400.4300 None Seen /hpf 0 Normal BACTERIA SEEN LAB L400.4350 <or=2+ /hpf 0 Normal MUCUS, URINE SEEN Performed By: #### L400.0001 #### [facility] [address] [place], [address] CREATININE, URINE Collected: 08/29/2017 Status: F Source: [place] 8:21 PM [facility] REPOSITORY TYPE CODE TESTS RESULT OUT OF RANGE REFERENCE UNITS LAB L502.0300 NO RANGE EST. mg/dL Normal URINE 147.00 CREAT Performed By: #### L502.0300 #### [facility] [place], [address] URINE SODIUM Collected: 08/29/2017 Status: F Source: [place] 8:21 PM [facility] REPOSITORY TYPE CODE TESTS RESULT OUT OF RANGE REFERENCE UNITS LAB L501.5500 Not Establ. mmol/L Normal UR NA 46 Performed By: #### L501.5500 #### [facility] [place], [address] Observed: 08/29/2017 Status: F Source: [place] CULTURE, URINE 8:21 PM [facility] REPOSITORY Order Date: 08/29/17 Urine Culture ORGANISM 1: Mixed Gram Positive Organisms [place] Count 1000-10,000 MIX CULTURE Mixed contaminants. Submit a new specimen if indicated. Performed By: #### M100.0650 #### [facility] [address] [facility] [place], [address] M R STAPH AUREUS Collected: 08/29/2017 Status: F Source: [place] DNA BY PCR 7:30 PM [facility] REPOSITORY TYPE CODE TESTS RESULT OUT OF REFERENCE UNITS RANGE LAB L8200.1100 Negative High MRSA POSITIVE RESULT Result Comment: RESULTS CALLED TO ROSANNE KOVACS 08/29/172118 [place]. REPORT READ BACK BY SAME. Performed By: #### L8200.1000 #### [facility] [address] [place], [address] VENOUS DUPLEX LOWER Observed: 08/29/2017 Status: F Source: [place] EXTREMITY 4:47 PM [facility] REPOSITORY [facility] Cardiovascular Services [address] [place] [address] Venous Duplex US, Unilateral 08/29/17 1301 MR#: [id number] Acct: [id number] Name: JAKE BLANKENSHIP Rep #: [id number] : 1965 52 From: Lew Reich MD Attending Dr: Hannah Guerrier MD Status: ADM IN Ordering Dr: Abbi Nichols MD Date: 08/29/17 Location: [facility]3 Sex: M C Admitted: 08/29/17 Reason For Study: LEG PAIN AND SWELLING Procedure LEFT Exam performed portable in ED. CFV is compressible, spontaneous, phasic, A preliminary report was called and/or faxed competent, and demonstrates normal to ED nurse. augmentation. FV is compressible, spontaneous, phasic, competent and demonstrates normal augmentation. POP V is compressible, spontaneous, phasic, competent and demonstrates normal augmentation. T/P Trunk is compressible. PTV is compressible. LT PerV is compressible. GSV harvested. Interpretation Summary Deep veins of the left lower extremity are patent and compressible segmentally. There is no evidence of left lower extremity deep vein thrombosis. Valvular competence appears intact within the proximal deep venous system on the left . The left greater saphenous vein is absent, having been previously harvested. Ordering Physician: Abbi Nichols Referring Physician: Leida Cisneros Performed By: Fanny Vallejo RVT 08/29/17 1647 Date Lew Reich MD CC: Hannah Guerrier MD; Leida Cisneros MD; Abbi Nichols MD Date Dictated: 08/29/17 1301 Date Transcribed: 08/29/171646 Time Buyer: Signed HISTORY AND PHYSICAL Observed: 08/29/2017 Status: F Source: [place] EXAM 4:26 PM [facility] REPOSITORY [facility] Medical Records Department [address] [place] [address] History and Physical 08/29/17 1536 MR#: [id number] Acct: [id number] Name: JAKE BLANKENSHIP Rep #: [id number] : 1965 52 From: Hannah Guerrier MD PCP: Leida Cisneros MD Status: ADM IN Location: [place] [address] Problem List (1) Cellulitis Status: Acute Qualifiers: Site of cellulitis: extremity Site of cellulitis of extremity: lower extremity Laterality: left Qualified Code(s): L03.116 - Cellulitis of left lower limb (2) Severe sepsis Status: Acute (3) Hyperlipidemia Status: Chronic Qualifiers: Hyperlipidemia type: unspecified Qualified Code(s): E78.5 - Hyperlipidemia, unspecified (4) Benign essential hypertension Status: Chronic (5) Morbid obesity Status: Chronic (6) Lymphedema of left leg Status: Chronic (7) GERD (gastroesophageal reflux disease) Status: Chronic Qualifiers: Esophagitis presence: esophagitis presence not specified Qualified Code(s): K21.9 - Gastro-esophageal reflux disease without esophagitis History of Present Illness Date of Admission: 08/29/17 Chief Complaint: Left lower extremity swelling and redness - 3 days The patient is a 52 year old M with past medical history of type II DM, morbid obesity, chronic leg edema, last admitted in 2016, history of MRSA of groin with a similar presentation of left lower extremity redness and swelling. Patient was in his usual state of health until 3 days ago when he noticed that the left lower extremity was swollen and painful, associated with some redness that seems to be spreading to below the knee. Patient admits to chills and feeling fatigued. Admits to dizziness but no palpitations or chest pain. Denies any fever. Patient is unaware that he has chronic kidney disease in 2016, has not had any hospitalizations since 2016. He states he is a fairly healthy patient. Denied any cuts on his legs or insect bites or bruises. Vitals in the ED show a temperature of 90 9.3F, heart rate of 91, blood pressure 160/90, SPO2 was 98% on room air. Admitting blood pressure RBC count of 16.9, hemoglobin 11.4, platelets of 217, sodium 128, potassium 4.4, chloride 100, bicarbonate 15, anion gap of 13, BUN 40 creatinine is 2.53, previous creatinine was 1.29 in 2016. Past Medical History Past Medical History (Chronic Problems): Chronic Problems Diabetes mellitus out of control (Chronic) Hyperlipidemia (Chronic) Benign essential hypertension (Chronic) Morbid obesity (Chronic) Coronary artery arteriosclerosis (Chronic) Lymphedema of left leg (Chronic) Left leg swelling (Chronic) Prostatism (Chronic) GERD (gastroesophageal reflux disease) (Chronic) Chronic venous insufficiency (Chronic) Edema of left lower extremity (Chronic) Allergies pravastatin sodium [From Pravachol] Adverse Reaction (Intermediate, Verified 08/29/17 11:32) Other ACHY MUSCLES Home Medications: Ambulatory Orders Medication Instructions Recorded Amlodipine [Norvasc] 10 mg PO DAILY 10/16/15 Aspirin [Aspirin, Baby] 81 mg PO DAILY@0800 10/16/15 Atorvastatin Calcium [Lipitor] 40 mg PO DAILY 10/16/15 Surgical History: coronary bypass surgery, - - Patient underwent coronary stent placement in 2008. He underwent coronary revascularization in March 2014, at which time 5 coronary bypass grafts were performed. Patient has a history of right groin wound debridement for MRSA. Psychiatric History: No pertinent psych hx Lives: Spouse/ Significant Other Smoking Status: Never smoker Tobacco Use: Non-smoker Alcohol: None Drugs: None - *Family History Maternal History Items: Seizures, - - Brain cancer Paternal History Items: No pertinent history Review of Systems Constitutional: Reports: Anorexia, Chills, Weakness. Denies: Fever, Weight Change Eyes: Denies: Blurred vision, Cataracts, Conjunctivae Inflammation, Pain, Redness HEENT: Denies: Difficulty Hearing, Difficulty Swallowing, Head Aches, Hearing Changes, Sinus Congestion, Sinus Drainage Cardiovascular: Denies: Chest Pain, Claudication, Orthopnea, Palpitations, Paroxysmal Noc. Dyspnea Respiratory: Denies: Cough, Hemoptysis, Pleuritic Pain, Shortness of breath at rest, Shortness of breath upon exertion, Sputum production Gastrointestinal: Denies: Abdominal Pain, Hematemesis, Hematochezia, Nausea, Vomiting Genitourinary: Denies: Dysuria, Frequency, Incontinence Musculoskeletal: Reports: Leg Pain. Denies: Joint Pain, Joint stiffness, Joint swelling, Joint Tenderness Skin: Reports: Skin Changes - redness and swelling of lower extremity with differential warmth. Some chronic tinea pedis changes in between the 4th and 5th toes.. Denies: Wounds Neurological: Denies: Difficulty swallowing, Focal weakness, Numbness, Tingling Psychiatric: Denies: Anxiety, Depression, Homicidal Ideations, Suicidal Ideations Endocrine: Denies: Change in Body Habitus, Heat/ Cold Intolerance Hematologic/ Lymphatic: Denies: Adenopathy, Anemia, Easy Bruising, Easy Bleeding VTE Information - Inpt Only VTE Present on Admission: No VTE Pharm Prophylaxis ordered?: Yes Patient Problems: Active and Suspected Problems Cellulitis (Acute) Severe sepsis (Acute) - Physical Exam General: Alert, Oriented x3, Cooperative, No apparent distress, - - obese HEENT: Atraumatic, PERRLA, EOMI, Normocephalic Oral: Moist Mucosa Neck: Supple Lungs: Clear to auscultation, Normal air movement Cardiovascular: Regular rate, Regular Rhythm, Normal S1, Normal S2, No murmurs Abdomen: Bowel Sounds Present, Soft, Non Tender, Non-Distended, No Hepato-splenomegaly Extremities: No edema Skin: No rashes Musculoskeletal: No Tenderness to Palpation of Joints or Extremities Lymphatic: No Cervical, Supraclavicular, or Inguinal Adenopathy Neurological: Cranial nerves II-XII grossly intact, Neuro grossly intact Psych/Mental Status: Normal Affect, Appropriate Vital Signs Temp Pulse Resp BP Pulse Ox 99.3 F H 61 15 135/77 H 98 08/29/17 11:32 08/29/17 14:36 08/29/17 14:36 08/29/17 14:36 08/29/17 14:36 Assessment/Plan Active and Suspected Problems Cellulitis (Acute) Severe sepsis (Acute) 52 year old M with past medical history of type II DM, morbid obesity, chronic leg edema, last admitted in 2015, history of MRSA of groin with a similar presentation of left lower extremity redness and swelling. 1.Severe sepsis secondary to left lower extremity cellulitis (HR>90, WBC 16.9, evidence of TALITA), in a known diabetic, History of MRSA, morbidly obese patient with history of chronic venous insufficiency. DVT ruled out with a Doppler ultrasound in the ED. Plan: Admit to Medsurg floor, IV antibiotics -Cipro and Flagyl, IV fluids, repeat CBCD, pharmacy to help dose and monitor vancomycin, ID consult 2. TALITA on CKD stage 3, Admitting Cr is 2.53, previous Cr 1.29, will start on IV fluids, renal ultrasound, urine sodium, urine creatinine, nephrology consult, would hold metformin, spironolactone, lisinopril, hydrochlorothiazide and OxyContin. 3. Hyponatremia, likely related to #2, repeat BMP in am 4. Non-gap metabolic acidosis, likely secondary to #2, continue with IV fluids, labs in a.m. 5. Type II DM, insulin, continue home medications, hold metformin, Jardiance and continue with insulin with Accu-Cheks and low dose insulin sliding scale. 6. Hypertension, fairly uncontrolled in the ED, secondary to pain, subsequent blood pressure readings are controlled, to new on amlodipine, carvedilol. Lisinopril, Aldactone, hydrochlorothiazide on hold. Will Add hydralazine as needed for systolic blood pressure more than 160 7. CAD s/p CABG, stable, on aspirin, statin, beta-william, lisinopril, Aldactone 8. DVT prophylaxis with heparin subcu Code Visit Inpatient E AND M: [id number] Init Hosp L3 08/29/17 1626 <Electronically signed by Hannah Guerrier MD> Date Hannah Guerrier MD Cosigner Signature: Date (if applicable) CC: Hannah Guerrier MD; Leida Cisneros MD Signed EMERGENCY DEPARTMENT Observed: 08/29/2017 Status: F Source: [place] SUMMARY 4:22 PM [facility] REPOSITORY [facility] Medical Records Department [address] [place] [address] Emergency Department Summary 08/29/17 1559 MR#: [id number] Acct: [id number] Name: JAKE BLANKENSHIP Rep #: [id number] : 1965 52 From: Abbi Nichols MD PCP: Leida Cisneros MD Status: ADM IN - ER Visit Summary Date of Service: 08/29/17 Chief Complaint: Left leg pain and swelling History of Present Illness: The patient is a 52 M who presents for 3 days of pain and swelling to the left lower leg. It is gradually worsened. Patient has associated sweats but no measured fever. He has malaise, fatigue and feels thirsty. He has a history of prior cellulitis that required hospitalization and IV antibiotics with ID consult. 3 of diabetes, hypertension, coronary artery disease, history of chronic dyspnea. Denies CHF or COPD history. No renal disease. Is not on any blood thinners. Physical Examination: Vital signs: afebrile, hemodynamically stable, no hypoxia on room air General: well nourished, well developed, in no distress Skin: warm, dry, no pallor, erythema and warmth distal to the left knee on the entire lower leg radiating into the foot HEENT: normocephalic and atraumatic; PERRL, EOMI, moist mucous membranes Cardiovascular: regular rate and rhythm without murmurs, no peripheral edema, 2+ pulses all distal extremities Respiratory: No increased work of breathing, lungs are clear to auscultation bilaterally, no rales, rhonchi or wheezing Abdominal: Abdomen is soft, nontender with normoactive bowel sounds, no guarding or rebound, no masses MSK: Moves all extremities, no deformities, normal strength Neuro: Awake and alert, oriented 4. No facial droop, sensation and motor function intact and symmetric Test Results: Abnormal Lab Results WBC 16.9 H RBC 4.37 L Hgb 11.4 L WBC RBC Hgb Hct MCV MCH MCHC RDW RDW Differential Plt Count MPV Immature Gran % (Auto) Neut % (Auto) Clinical Impression(s) from Imaging Studies Chest X-Ray 08/29/17 12:19 IMPRESSION: Mild cardiomegaly. Postoperative changes of median sternotomy. No focal consolidation. Electronically Signed: Jakub DO Burton at 14:03 EDT Tel , Service support , Emergency Department Course and Treatment: Patient presents with concerning exam for cellulitis below the knee of the left leg. Patient has exquisite tenderness with erythema, swelling and warmth. Ultrasound performed to rule out DVT. Given patient's significant cardiac history and his worsening dyspnea for the last 2 weeks, EKG and chest x-ray were also performed. EKG showed sinus rhythm without ischemia or ectopy. Chest x-ray showed no pulmonary edema. Labs showed leukocytosis of 16.9. BMP remarkable for mild hyponatremia at 128, and chart review shows patient normally has a low sodium but not to this extent. Elevated creatinine at his baseline. Hyperglycemic at 203. Troponin negative. Lactate within normal limits at 1.9. Given patient's multiple medical comorbidities and cellulitis of the entire left lower leg, and given history of complicated cellulitis in the past, patient would benefit from admission for IV antibiotics. Was started on vancomycin. He was discussed with the hospitalist and admitted for further management. Treatment Plan: [] Disposition: [] Impression: Lower leg cellulitis, chronic renal disease, hyponatremia This note was generated with [employer] dictation software. It may contain incorrect words, spelling, and punctuation that were not noted in review of the chart prior to signing ED Disposition - Plan for ED Patient: Disposition: Acute Care Hospital [facility] Chief Complaint: Lower Extremity Injury What to do if you have Problems For any increased pain, shortness of breath, bleeding, nausea or vomiting, chest pain, or any unexpected problems, contact your Primary Care Provider. Call [facility] ([phone]) or report to the closest Emergency Room. Call 911 if necessary. 08/29/17 1622 <Electronically signed by Abbi Nichols MD> Date Abbi Nichols MD Cosigner Signature (If Indicated): Date CC: Leida Cisneros MD BEDSIDE GLUCOSE Collected: 08/29/2017 Status: F Source: [place] 4:20 PM [facility] REPOSITORY TYPE CODE TESTS RESULT OUT OF REFERENCE UNITS RANGE LAB L501.080 70-110 mg/dL High BEDSIDE GLU 189 Result Comment: MANAGEMENT OF PATIENT CARE PER NURSING PROTOCOL Performed By: #### L501.080 #### [facility] Laboratory Point of Care [address] [place] [address] KIDNEY AND BLADDER Observed: 08/29/2017 Status: F Source: [place] 2:44 PM [facility] REPOSITORY [facility] Imaging Services [address] [place] [address] Kidney and Bladder MR#: [id number] Acct: [id number] Name: JAKE BLANKENSHIP Rep #: [id number] : 1965 M 52 From: Destini Fisher MD PCP: Leida Cisneros MD Status: ADM IN Study: Kidney and Bladder Date of Exam: 08/29/17 Exam# [id number] Ordering Dr: Hannah Guerrier MD STUDY: RENAL ULTRASOUND - COMPLETE REASON FOR EXAM: Male, 52 years old. Acute renal failure TECHNIQUE: Ultrasound evaluation of the kidneys was performed with real-time and static barakat-scale imaging. COMPARISON: None. FINDINGS: RIGHT KIDNEY: Normal location of the right kidney, which is normal in size. The right kidney measures 12.1 x 5.7 x 7.0 cm. There is a normal cortex of the right kidney. The renal cortex measures 2.1 cm. There is no right renal mass or cyst. There is a punctate echogenicity in the right kidney image #7 suggesting possible renal stone. There is a rounded appearing isoechoic masslike structure in the mid pole suggesting probable dromedary hump. This is less are apparent on the left side. There is no right hydronephrosis. DISTAL RIGHT URETER: There is non-visualization of the distal right ureter. There is no demonstrated right ureterovesical junction calculus. There is a visualized right ureteral jet. LEFT KIDNEY: Normal location of the left kidney, which is normal in size. The left kidney measures 11.6 x 5.6 x 6.0 cm. There is a normal cortex of the left kidney. The renal cortex measures 2.2 cm. There is no left renal mass or cyst. There are no left renal calculi. There is no left hydronephrosis. DISTAL LEFT URETER: There is non-visualization of the distal left ureter. There is no demonstrated left ureterovesical junction calculus. There is a visualized left ureteral jet. BLADDER: The distended urinary bladder has a volume of 312.6 ml. There is a normal wall thickness of the distended urinary bladder. There is no demonstrated mass within the urinary bladder. There are no demonstrated bladder calculi. US/Kidney and Bladder IMPRESSION: No evidence of hydronephrosis. Punctate stone right kidney. Probable Dromedary hump versus 3.7 cm isoechoic mass right kidney recommend consideration for follow-up study and/or comparison to a prior study if possible. Electronically Signed: Destini Fisher MD at 23:44 EDT Tel , Service support , CC: Hannah Guerrier MD; Leida Cisneros MD Time Buyer: Signed CBC W/DIFF, AUTOMATED Collected: 08/29/2017 Status: F Source: [place] 1:00 PM [facility] REPOSITORY TYPE CODE TESTS RESULT OUT OF RANGE REFERENCE UNITS LAB L100.1000 4.4-11.0 K/mm3 High WBC 16.9 LAB L100.1200 4.6-6.2 M/mm3 Low RBC 4.37 LAB L100.1300 13.0-16.5 g/dl Low HGB 11.4 LAB L100.1400 40-54 % Low HCT 34.5 LAB L100.1500 80-94 fL Low MCV 78.9 LAB L100.1600 27.0-32.0 pg Low MCH 26.1 LAB L100.1700 32-36 g/gl Normal MCHC 33.0 LAB L100.1810 11.6-14.6 % High RDW CV 14.9 LAB L100.1820 35.1-43.9 fl Normal RDW SD 42.4 LAB L100.1900 150-450 K/mm3 Normal PLT 217 LAB L100.2000 6.2-12.0 fl Normal MPV 10.0 LAB L100.2100 47-70 % High NEUT% 86.0 LAB L100.2200 19-41 % Low LY% 6.9 LAB L100.2300 0-10 % Normal MONO% 5.7 LAB L100.2400 0-5 % Normal EO% 0.0 LAB L100.2500 0-1 % Normal BASO% 0.2 LAB L100.2550 0.0-0.9 % High IM GRAN % 1.200 Result Comment: IG% - Immature Granulocytes (promyelocytes, myelocytes and metamyelocytes) > 1% indicates that a LEFT SHIFT is Present. LAB L100.2620 2.0-7.7 X10 3/uL High Absolute Neut 14.5 LAB L100.2720 0.83-4.51 X10 3/ul Normal Absolute Lymph 1.17 Performed By: #### L100.0100 #### [facility] [address] [facility]. [place], [place], [address] PROTHROMBIN TIME W/INR Collected: 08/29/2017 Status: F Source: [place] 1:00 PM [facility] REPOSITORY TYPE CODE TESTS RESULT OUT OF RANGE REFERENCE UNITS LAB L300.4150 11.7-14.9 SECONDS High PROTIME 15.8 LAB L300.4200 Normal INR 1.3 Performed By: #### L300.3900, L300.4310 #### [facility] [address] [place] [place], [address] PARTIAL THROMBOPLAST Collected: 08/29/2017 Status: F Source: [place] TIME 1:00 PM [facility] REPOSITORY TYPE CODE TESTS RESULT OUT OF REFERENCE UNITS RANGE LAB L300.4310 24.1-36.2 Seconds High PTT 36.5 Performed By: #### L300.3900, L300.4310 #### [facility] [address] [place], [address] LACTIC ACID Collected: 08/29/2017 Status: F Source: [place] 1:00 PM [facility] REPOSITORY Order Comment: Yes/No query for Sepsis Lactate Rule Y TYPE CODE TESTS RESULT OUT OF RANGE REFERENCE UNITS LAB L503.6005 0.4-2.0 mmol/L Normal LACTIC ACID 1.9 Performed By: #### L503.6005 #### [facility] [address] [place], [address] COMPREHENSIVE METABOLIC Collected: 08/29/2017 Status: F Source: [place] PROFIL 1:00 PM [facility] REPOSITORY TYPE CODE TESTS RESULT OUT OF RANGE REFERENCE UNITS LAB L501.0100 74-106 mg/dL High GLU 203 Result Comment: Glucose result greater than or equal to 200 mg/dL suggests DIABETES MELLITUS per A.D.A. criteria. Please note revised GLUCOSE reference range effective 2017. LAB L501.1000 7-18 mg/dL High BUN 40 LAB L501.1100 0.70-1.30 mg/dL High CREAT,SERUM 2.53 Result Comment: The validity of the calculated GFR AND GFRAA in patients over 70 years has not been determined. Clinical correlation is essential. LAB L501.1110 >60 mL/min Low EST GFR 28 Result Comment: Non- GFR Calc LAB L501.1115 >60 mL/min Low EST GFR - AA 34 Result Comment: GFR Calc LAB L501.1255 ml/min Normal Estimated CRCL 31.21 LAB L501.1300 10-20 RATIO Normal BUN/CRE 15.8 LAB L501.1500 6.4-8. g/dL Normal 2 T PROT 7.9 LAB L501.1800 3.2-5. g/dL Low 0 ALB 2.9 LAB L501.1950 2.2-4. g/dL High 2 GLOB 5.0 LAB L501.2000 0.9-2. RATIO Low 4 A/G 0.6 LAB L501.2200 8.5-10 mg/dL Low .1 CA 8.3 LAB L501.4100 15-37 U/L High AST 52 LAB L501.4305 45-117 U/L Normal ALK P 66 LAB L501.4405 16-61 U/L Normal ALT 37 LAB L501.4600 0.20-1 mg/dL Normal .00 T BILI 0.50 LAB L501.5300 136-14 mmol/L Low 5 NA 128 LAB L501.5600 3.5-5. mmol/L Normal 1 K 4.4 LAB L501.5900 98-107 mmol/L Normal CL 100 LAB L501.6100 21.0-3 mmol/L Low 2.0 CO2 15.0 LAB L501.6200 5-15 Normal GAP 13 Performed By: #### L500.4050, L501.4010 #### [facility] [address] [facility]. [place], [place], [address] TROPONIN-I Collected: 08/29/2017 Status: F Source: [place] 1:00 PM [facility] REPOSITORY TYPE CODE TESTS RESULT OUT OF RANGE REFERENCE UNITS LAB L501.4010 <0.045 ng/mL Normal < 0.015 TROPONIN-I Result Comment: TROPONIN-I EXPECTED VALUES <0.045 Negative 0.045 - 0.590 Consistent with Cardiac Damage > OR = 0.600 Critical Value Not every elevated troponin is indicative of WI. These values should be used with clinical judgement in examining the patient's clinical picture for diagnosis. To establish a diagnosis of WI versus myocardial injury, there must be a demonstrated rise and/or fall in the troponin values, in addition to ischemic symptoms, EKG changes, new regional wall motion abnormality, and/or angiographical evidence. PLEASE NOTE: REFERENCE RANGES EDITED 17 Performed By: #### L500.4050, L501.4010 #### [facility] [address] [place], [place], [address] BNP,B-TYPE NATRIURETIC Collected: 08/29/2017 Status: F Source: [place] PEPTIDE 1:00 PM [facility] REPOSITORY TYPE CODE TESTS RESULT OUT OF RANGE REFERENCE UNITS LAB L503.6620 0-100 pg/mL Normal B-TYPE 73.0 ELICEO PEP Performed By: #### L503.6620 #### [facility] [address] [place], [address] Observed: 08/29/2017 Status: F Source: [place] CULTURE, BLOOD (WB) 1:00 PM [facility] REPOSITORY BC No growth in 5 days. Performed By: #### M200.1000 #### [facility] [address] [place], [address] Observed: 08/29/2017 Status: F Source: [place] CULTURE, BLOOD (WB) 12:40 PM [facility] REPOSITORY BC No growth in 5 days. Performed By: #### M200.1000 #### [facility] [address] [place], [place], [address] CHEST 1 VIEW Observed: 08/29/2017 Status: F Source: ROSA (PORTABLE) 12:22 PM [facility] REPOSITORY [facility] Imaging Services [address] [place] [address] Chest 1 View (Portable) MR#: [id number] Acct: [id number] Name: JAKE BLANKENSHIP Rep #: [id number] : 1965 M 52 From: Jakub Manrique DO PCP: Leida Cisneros MD Status: REG ER Study: Chest 1 View (Portable) Date of Exam: 08/29/17 Exam# [id number] Ordering Dr: Abbi Nichols MD STUDY: X-RAY CHEST REASON FOR EXAM: Male, 52 years old. Chest pain TECHNIQUE: Single AP portable view of the chest. COMPARISON: None. FINDINGS: The lungs are clear and expanded. There is no demonstrated pleural abnormality. Sternal cerclage wires are present from a prior sternotomy. The heart is slightly enlarged. Normal mediastinum and jordon. Normal visualized pulmonary arteries. Normal visualized aortic arch and descending thoracic aorta. Normal visualized thoracic spine. Normal visualized ribs, clavicles, and shoulders. There is no demonstrated abnormality of the visualized soft tissue structures of the upper abdomen. RAD/Chest 1 View (Portable) IMPRESSION: Mild cardiomegaly. Postoperative changes of median sternotomy. No focal consolidation. Electronically Signed: Jakub Manrique DO at 14:03 EDT Tel , Service support , CC: Leida Cisneros MD; Abbi Nichols MD Time Buyer: Signed PROGRESS Observed: 08/23/2017 Status: COMPLETED Source: [place] 10:55 AM [facility] [place] REPOSITORY HNO ID: [id number] Author: Leida Cisneros Service: (none) Author Type: Physician Type: Progress Notes Filed: 08/23/2017 1:04 PM Note Text: Reason for Visit Patient presents with: Established Patient: 3 month follow up Jake Blankenship is a 52 year old male who presents here today for Above Complaints.. Health Maintenance DTAP,TDAP,TD(6 - Tdap) COLORECTAL CANCER SCREENING,SEE MODIFIER DILATED RETINAL EXAM HPI BP is well controlled on 5 pills at maximum doses. He has learnt to be more compliant. ? Hba1c is 10.8 from 9.9. Bf is 2 eggs, 2 slices of toast , and sausage mariel. He has cut back on his diet pop or water, he used to drink 4 to 8 cans of diet pop. Now he is down to 2 cans. He is drinking water instead. Lunch:sometimes he has a bowl of soup, hot dog etc. Dinner: he ate some potato peas and corn. ? He tired to be careful to be very active. Currently his sugars are in the range of 150 to 210. He knows if he cuts down around 100 pounds he will feel a lot better. ? He does have sleep apnea, does not use the machine regularly, because he was told he has very mild sleep apnea. No problem-specific Assessment AND Plan notes found for this encounter. PAST MEDICAL HISTORY Diagnosis Date - Diabetes (HCC) - Hypertension - WI (myocardial infarction) (HCC) 03-12-09 stent placement - Myocardial infarction (HCC) 03/16/2014 PAST SURGICAL HISTORY Procedure Laterality Date - CABG (5) VENOUS GRAFTS AND ARTERIAL GRAFT(S) 03/17 - PAST SURGICAL HISTORY OF ORIF LMF with pins - REMOVAL OF TONSILS,<12 Y/O Tonsillectomy FAMILY HISTORY Problem Relation Age of Onset - Cancer Mother Social History Substance Use Topics - Smoking status: Never Smoker - Smokeless tobacco: Former User Quit date: 01/14/2014 - Alcohol use No Past medical history, appointments, medications, allergies reviewed. Pertinent Lab/Diagnostic Studies are reviewed and discussed today Current Outpatient Prescriptions: - Insulin Syringe-Needle U-100 1 mL 31 gauge x 5/16 syrg - insulin lispro (HUMALOG KWIKPEN) 100 unit/mL inpn - empagliflozin (JARDIANCE) 10 mg tablet - meloxicam (MOBIC) 15 mg tablet - albuterol HFA (VENTOLIN HFA) 90 mcg/actuation inhaler - Insulin [place], Disposable, 31 gauge x 1/4 ndle - insulin glargine (TOUJEO SOLOSTAR U-300 INSULIN) 300 unit/mL (1.5 mL) inpn - metFORMIN (GLUCOPHAGE) 1,000 mg tablet - amLODIPine (NORVASC) 10 mg tablet - atorvastatin (LIPITOR) 40 mg tablet - carvedilol (COREG) 25 mg tablet - hydroCHLOROthiazide (HYDRODIURIL, ESIDRIX) 25 mg tablet - lisinopril (ZESTRIL, PRINIVIL) 40 mg tablet - spironolactone (ALDACTONE) 100 mg tablet - insulin syringe,safetyneedle 1 mL 31 gauge x 5/16 syrg - omeprazole (PRILOSEC) 20 mg capsule - EASY TOUCH 31 gauge x 3/16 ndle - beclomethasone (QVAR) 40 mcg/actuation inhaler - CLOTRIMAZOLE (LOTRIMIN TOPICAL) - aspirin, enteric coated (ASPIR-81) 81 mg EC tablet Review of Systems CONSTITUTIONAL: No fevers, chills night sweats, unintended weight loss CARDIOVASCULAR: No chest pain, dyspnea, palpitations, orthopnea, PND, ankle edema. PULM: No dyspnea, unexplained cough. GI: No dysphagia/odynophagia, problematic reflux, constipation, diarrhea, changes in stool habits, hematochezia, melena. : No new urinary complaints, including dysuria, gross hematuria or pyuria. NEURO: No new balance problems, peripheral weakness/paresthesias or numbness of concern. Physical Exam BP 124/64 (BP Site: Left Arm, BP Position: Sitting, BP Cuff Size: Large Adult) Pulse 61 Resp 14 Ht 170.2 cm (5' 7) Wt (!) 145.6 kg (321 lb) SpO2 98% BMI 50.28 kg/m? General appearance: Well appearing, alert, in no acute distress, well nourished. Skin: Skin color, texture, turgor normal, no suspicious rashes or lesions Head: Normocephalic, no masses, lesions, tenderness or abnormalities Eyes: Anicteric sclera. Pupils are equally round and reactive to light. Extraocular movements are intact. Lungs: Lungs clear to auscultation. No wheezing, rhonchi, rales Heart: RRR without murmur, gallop, or rubs. Extremities: No deformities, edema, skin discoloration, clubbing or cyanosis. Good capillary refill. ASSESSMENT/PLAN: 1. Uncontrolled type 2 diabetes mellitus with insulin therapy (HCC) - ICD9: 250.02, V58.67, ICD10: E11.65, Z79.4 (primary diagnosis) Controlled. - Continue current medications - HGB A1C 2. MELODIE (obstructive sleep apnea) AHI 11 - ICD9: 327.23, ICD10: G47.33 he has MELODIE that is not well controlled because he is not using the machine.... he thinks he did not benefit from it. But he notes that he is sleepy when he is sitting on and every afternoon 3. Obesity, Class III, BMI 40-49.9 (morbid obesity) (HCC) - ICD9: 278.01, ICD10: E66.01 4. Uncontrolled hypertension - ICD9: 401.9, ICD10: I10 - good control - Recommended regular aerobic exercise. - Recommend home blood pressure monitoring, to bring results in on next visit - Goal of BP <130/80 5. Vitamin deficiency - ICD9: 269.2, ICD10: E56.9 - VITAMIN D 25 HYDROXY LEIDA CISNEROS MD CNOV Observed: 08/23/2017 Status: COMPLETED Source: [place] 10:40 AM [facility] [place] REPOSITORY Office Visit (INTMWS) JAKE BLANKENSHIP ([id number]) 1965 M Date Time Provider Department 08/23/17 10:40 AM LEIDA CISNEROS INTMWS During your visit today, we recorded the following information about you: Pulse Respiration Blood pressure Weight 61/minute 14/minute 124/64 145.6 kg Height 1.702 m LEIDA CISNEROS MD 08/23/2017 1:04 PM Signed Reason for Visit Patient presents with: Established Patient: 3 month follow up Jake Blankenship is a 52 year old male who presents here today for Above Complaints.. Health Maintenance DTAP,TDAP,TD(6 - Tdap) COLORECTAL CANCER SCREENING,SEE MODIFIER DILATED RETINAL EXAM HPI BP is well controlled on 5 pills at maximum doses. He has learnt to be more compliant. ? Hba1c is 10.8 from 9.9. Bf is 2 eggs, 2 slices of toast , and sausage mariel. He has cut back on his diet pop or water, he used to drink 4 to 8 cans of diet pop. Now he is down to 2 cans. He is drinking water instead. Lunch:sometimes he has a bowl of soup, hot dog etc. Dinner: he ate some potato peas and corn. ? He tired to be careful to be very active. Currently his sugars are in the range of 150 to 210. He knows if he cuts down around 100 pounds he will feel a lot better. ? He does have sleep apnea, does not use the machine regularly, because he was told he has very mild sleep apnea. No problem-specific Assessment AND Plan notes found for this encounter. PAST MEDICAL HISTORY Diagnosis Date - Diabetes (HCC) - Hypertension - WI (myocardial infarction) (HCC) 03-12-09 stent placement - Myocardial infarction (HCC) 03/16/2014 PAST SURGICAL HISTORY Procedure Laterality Date - CABG (5) VENOUS GRAFTS AND ARTERIAL GRAFT(S) 03/17 - PAST SURGICAL HISTORY OF ORIF LMF with pins - REMOVAL OF TONSILS,<12 Y/O Tonsillectomy FAMILY HISTORY Problem Relation Age of Onset - Cancer Mother Social History Substance Use Topics - Smoking status: Never Smoker - Smokeless tobacco: Former User Quit date: 01/14/2014 - Alcohol use No Past medical history, appointments, medications, allergies reviewed. Pertinent Lab/Diagnostic Studies are reviewed and discussed today Current Outpatient Prescriptions: - Insulin Syringe-Needle U-100 1 mL 31 gauge x 5/16 syrg - insulin lispro (HUMALOG KWIKPEN) 100 unit/mL inpn - empagliflozin (JARDIANCE) 10 mg tablet - meloxicam (MOBIC) 15 mg tablet - albuterol HFA (VENTOLIN HFA) 90 mcg/actuation inhaler - Insulin [place], Disposable, 31 gauge x 1/ ndle - insulin glargine (TOUJEO SOLOSTAR U-300 INSULIN) 300 unit/mL (1.5 mL) inpn - metFORMIN (GLUCOPHAGE) 1,000 mg tablet - amLODIPine (NORVASC) 10 mg tablet - atorvastatin (LIPITOR) 40 mg tablet - carvedilol (COREG) 25 mg tablet - hydroCHLOROthiazide (HYDRODIURIL, ESIDRIX) 25 mg tablet - lisinopril (ZESTRIL, PRINIVIL) 40 mg tablet - spironolactone (ALDACTONE) 100 mg tablet - insulin syringe,safetyneedle 1 mL 31 gauge x 5/16 syrg - omeprazole (PRILOSEC) 20 mg capsule - EASY TOUCH 31 gauge x 3/16 ndle - beclomethasone (QVAR) 40 mcg/actuation inhaler - CLOTRIMAZOLE (LOTRIMIN TOPICAL) - aspirin, enteric coated (ASPIR-81) 81 mg EC tablet Review of Systems CONSTITUTIONAL: No fevers, chills night sweats, unintended weight loss CARDIOVASCULAR: No chest pain, dyspnea, palpitations, orthopnea, PND, ankle edema. PULM: No dyspnea, unexplained cough. GI: No dysphagia/odynophagia, problematic reflux, constipation, diarrhea, changes in stool habits, hematochezia, melena. : No new urinary complaints, including dysuria, gross hematuria or pyuria. NEURO: No new balance problems, peripheral weakness/paresthesias or numbness of concern. Physical Exam BP 124/64 (BP Site: Left Arm, BP Position: Sitting, BP Cuff Size: Large Adult) Pulse 61 Resp 14 Ht 170.2 cm (5' 7) Wt (!) 145.6 kg (321 lb) SpO2 98% BMI 50.28 kg/m? General appearance: Well appearing, alert, in no acute distress, well nourished. Skin: Skin color, texture, turgor normal, no suspicious rashes or lesions Head: Normocephalic, no masses, lesions, tenderness or abnormalities Eyes: Anicteric sclera. Pupils are equally round and reactive to light. Extraocular movements are intact. Lungs: Lungs clear to auscultation. No wheezing, rhonchi, rales Heart: RRR without murmur, gallop, or rubs. Extremities: No deformities, edema, skin discoloration, clubbing or cyanosis. Good capillary refill. ASSESSMENT/PLAN: 1. Uncontrolled type 2 diabetes mellitus with insulin therapy ([facility]) - ICD9: 250.02, V58.67, ICD10: E11.65, Z79.4 (primary diagnosis) Controlled. - Continue current medications - HGB A1C 2. MELODIE (obstructive sleep apnea) AHI 11 - ICD9: 327.23, ICD10: G47.33 he has MELODIE that is not well controlled because he is not using the machine.... he thinks he did not benefit from it. But he notes that he is sleepy when he is sitting on and every afternoon 3. Obesity, Class III, BMI 40-49.9 (morbid obesity) ([facility]) - ICD9: 278.01, ICD10: E66.01 4. Uncontrolled hypertension - ICD9: 401.9, ICD10: I10 - good control - Recommended regular aerobic exercise. - Recommend home blood pressure monitoring, to bring results in on next visit - Goal of BP <130/80 5. Vitamin deficiency - ICD9: 269.2, ICD10: E56.9 - VITAMIN D 25 HYDROXY LEIDA CISNEROS MD Referring Provider: LEIDA CISNEROS [[id number]] Allergies As of Date: 08/23/2017 Noted Allergy Reaction PRAVACHOL (PRAVASTATIN SODIUM) 08/11/2009 5 - Intolerance Comments: Myalgias/arthralgias. Resolved off med. Date Reviewed: 08/23/2017 Reviewed by: Dominga Stauffer LPN - Fully Assessed Reason for Visit: Established Patient [175] Cmt: 3 month follow up Primary Visit Diagnosis:Uncontrolled type 2 diabetes mellitus with insulin therapy ([facility]) [E11.65, Z79.4] Other Visit Diagnoses:MELODIE (obstructive sleep apnea) AHI 11 [G47.33] Obesity, Class III, BMI 40-49.9 (morbid obesity) ([facility]) [E66.01] Uncontrolled hypertension [I10] Vitamin deficiency [E56.9] Order(s):HGB A1C [YVNAO1R] Order #: [id number] FUTURE VITAMIN D 25 HYDROXY [SQVITD] Order #: [id number] FUTURE Prescriptions as of 08/23/2017 Sig: INSULIN SYRINGE-NEEDLE U-100 * INSULIN LISPRO (U-100) 100 UN* Inject 50 Units subcutaneousl* EMPAGLIFLOZIN 10 MG TABLET Take 1 tablet by mouth once d* MELOXICAM 15 MG TABLET Take 1 tablet by mouth once d* ALBUTEROL SULFATE HFA 90 MCG/* Inhale 2 Puffs as instructed * PEN NEEDLE, DIABETIC 31 GAUGE* INSULIN GLARGINE (U-300) 300 * Inject 130 Units subcutaneous* METFORMIN 1,000 MG TABLET Take 1 tablet by mouth twice * AMLODIPINE 10 MG TABLET Take 1 tablet by mouth once d* ATORVASTATIN 40 MG TABLET Take 1 tablet by mouth daily * CARVEDILOL 25 MG TABLET Take 1 tablet by mouth twice * HYDROCHLOROTHIAZIDE 25 MG TAB* Take 1 tablet by mouth once d* LISINOPRIL 40 MG TABLET Take 1 tablet by mouth once d* SPIRONOLACTONE 100 MG TABLET Take 1 tablet by mouth once d* INSULIN SYRINGE WITH SAFETY N* Use three times daily with re* OMEPRAZOLE 20 MG CAPSULE,ANAI* Take 1 capsule by mouth once * EASY TOUCH 31 GAUGE X 3/16 N* Use with meal-time insulin in* BECLOMETHASONE DIPROPIONATE 4* Inhale 2 Puffs as instructed * LOTRIMIN TOPICAL Apply to affected area. ASPIRIN 81 MG TABLET,DELAYED * Take 1 tablet by mouth once d* Problem List As Of Date 08/23/2017 Noted Resolved Coronary Artery Disease [I25.10] INVALID FOR* s/p Angioplasty with Stent INVALID FOR* Uncontrolled hypertension [I10] INVALID FOR* More... Hyperlipidemia with target LDL less than 70 [E7*INVALID FOR* Diabetes mellitus (HCC) [E11.9] INVALID FOR*10/15/2013 Proteinuria [R80.9] INVALID FOR* More... Uncontrolled type 2 diabetes mellitus with insu*INVALID FOR* Myocardial infarction (HCC) [I21.9] INVALID FOR* Edema [R60.9] INVALID FOR* MELODIE (obstructive sleep apnea) AHI 11 [G47.33] INVALID FOR* Obesity, Class III, BMI 40-49.9 (morbid obesity*INVALID FOR* Encounter Status:Closed by LEIDA CISNEROS MD on 08/23/17 PROGRESS Observed: 08/05/2017 Status: COMPLETED Source: [place] 11:00 AM [facility] REPOSITORY [facility] ID: [id number] Author: Tesha (Pharmacist)Saman Service: (none) Author Type: Pharmacist Type: Progress Notes Filed: 08/05/2017 12:22 PM Note Text: Patient consents to pharmacy collaborative practice agreement. REASON FOR CONSULT: DM GOALS: A1c < 8% CONSULTING PROVIDER: Dr. Cisneros Date of Consult: 02/2017 Jake Blankenship is a 52 year old male was last seen in [facility] by PCP, Leida Peterson on 06/01. Patient is presenting today for f/u pharmacotherapy management appointment for DM. At last PharmD visit on 06/29 insulin glargine was increased from 120 to 130 units; lispro from 40 to 50 units TID. Past DM medicines: Dulaglutide - stomach upset Soliqua - stomach upset INTERIM HISTORY: Reports feeling well overall No issues or complaints Current DM Medications: Insulin glargine 300 units/mL 130 units QAM Insulin lispro 50 units TID meals Metformin 1,000mg BID Current HTN Medications: Lisinopirl 40mg once daily HCTZ 25mg once daily Amlodipine 10mg once daily Carvedilol 25mg BID Spironolactone 100mg once daily Preventative Medications: ? On GEENA/ARB: Yes ? On Statin: Yes ? On ASA: Yes ROS: ? Patient denies CP, SOB, PEREZ, blurred vision, dizziness or lightheadedness ? Patient denies symptoms of hypoglycemia (sweating, anxiety, palpitations, hunger, and tremor) ? Patient denies symptoms of hyperglycemia (polyuria, polydipsia, polyphagia) ? Patient denies potential medication adverse effects DIET/EXERCISE/SOCIAL Hx: ? Beverages: down to 1 pop every 2 days ? Exercise: more active outside MEDICATIONS: ? Pill bottles are not present. ? Adherence: denies missed doses. ? [facility] ? Rx coverage: [employer] ? Affordability: no issues ? Diabetes supplies: Relion ? Organization System: pillbox ACTIVE PROBLEM LIST Coronary Artery Disease S/P Angioplasty With Stent Uncontrolled Hypertension Hyperlipidemia With Target Ldl Less Than 70 Proteinuria Uncontrolled Type 2 Diabetes Mellitus With Insulin Therapy ([facility]) Myocardial Infarction ([facility]) Edema MELODIE (obstructive sleep apnea) AHI 11 PAST MEDICAL HISTORY Diagnosis Date - Diabetes ([facility]) - Hypertension - [place] (myocardial infarction) ([facility]) 03-12-09 stent placement - Myocardial infarction ([facility]) 03/16/2014 ALLERGIES Allergen Reactions - Pravachol [Pravasta* Intolerance Myalgias/arthralgias. Resolved off med. Current Outpatient Prescriptions: meloxicam (MOBIC) 15 mg tablet Take 1 tablet by mouth once daily as needed. Take with food. benzonatate (TESSALON PERLE) 100 mg capsule Take 1-2 capsules tid prn albuterol HFA (VENTOLIN HFA) 90 mcg/actuation inhaler Inhale 2 Puffs as instructed every 4 hours as needed for Wheezing/Shortness of Breath. Insulin [place], Disposable, 31 gauge x 1/4 ndle insulin glargine (TOUJEO SOLOSTAR U-300 INSULIN) 300 unit/mL (1.5 mL) inpn Inject 130 Units subcutaneously every morning. 80 units plus 50 units insulin lispro (HUMALOG KWIKPEN) 100 unit/mL inpn Inject 50 Units subcutaneously w MEALS. metFORMIN (GLUCOPHAGE) 1,000 mg tablet Take 1 tablet by mouth twice daily. amLODIPine (NORVASC) 10 mg tablet Take 1 tablet by mouth once daily. atorvastatin (LIPITOR) 40 mg tablet Take 1 tablet by mouth daily at bedtime. For cholesterol. carvedilol (COREG) 25 mg tablet Take 1 tablet by mouth twice daily with meals. hydroCHLOROthiazide (HYDRODIURIL, ESIDRIX) 25 mg tablet Take 1 tablet by mouth once daily. lisinopril (ZESTRIL, PRINIVIL) 40 mg tablet Take 1 tablet by mouth once daily. spironolactone (ALDACTONE) 100 mg tablet Take 1 tablet by mouth once daily. insulin syringe,safetyneedle 1 mL 31 gauge x 5/16 syrg Use three times daily with regular insulin omeprazole (PRILOSEC) 20 mg capsule Take 1 capsule by mouth once daily. EASY TOUCH 31 gauge x 3/16 ndle Use with meal-time insulin injections five times daily. beclomethasone (QVAR) 40 mcg/actuation inhaler Inhale 2 Puffs as instructed twice daily. CLOTRIMAZOLE (LOTRIMIN TOPICAL) Apply to affected area. aspirin, enteric coated (ASPIR-81) 81 mg EC tablet Take 1 tablet by mouth once daily. No current facility-administered medications for this visit. Rx meds not listed in EPIC: none OTCs: none Herbals: none GLYCEMIC CONTROL: ? Glucometer present at visit: No ? SMBG?s: ? FBGs 185 this morning, usually 200s ? Before supper 90 sometimes ? Hypoglycemia: denies Last 3 Encounter BP Readings: Date: BP: 07/02/2017 152/82 06/29/2017 135/68 06/01/2017 130/72 Wt: 146.3 kg (322 lb 9.6 oz) BMI: 50.53 kg/(m2) LABS Lab Results Component Value Date HBA1C 10.8 05/30/2017 HBA1C 9.9 02/02/2017 HBA1C 9.4 09/07/2016 CMP: Glucose 317 05/30/2017 BUN 22 05/30/2017 Creatinine 1.48 05/30/2017 Sodium 134 05/30/2017 Potassium 5.1 05/30/2017 Chloride 100 05/30/2017 CO2 18 05/30/2017 Protein, Total 7.2 02/02/2017 Albumin 3.8 02/02/2017 Calcium 9.5 05/30/2017 Alkaline Phosphatase 73 02/02/2017 Bilirubin, Total 0.3 02/02/2017 AST 32 02/02/2017 ALT 39 02/02/2017 Estimated Creatinine Clearance: 79.3 mL/min (A) (based on SCr of 1.48 mg/dL (H)). Last Lipid Panel Lab Results Component Value Date CHOL 135 02/02/2017 Lab Results Component Value Date HDL 29 02/02/2017 Lab Results Component Value Date LDL 62 02/02/2017 Lab Results Component Value Date TG 219 02/02/2017 Albumin/Creat Ratio (mg/g) Date Value 02/02/2017 1,727 (H) PHARMACOTHERAPY ASSESSMENT/PLAN: 1. Uncontrolled type 2 diabetes mellitus with insulin therapy ([facility]) - ICD9: 250.02, V58.67, ICD10: E11.65, Z79.4 (primary diagnosis) A1c goal < 8% per Consult (could consider tighter goal of < 7% d/t age), patient is not at goal (10.8% on 05/30/17). Recheck end of August. SMBGs reported to be improving but still above goal. Patient is compliant and tolerating current therapy. With high doses of basal insulin, suspect some absorption issues and/or insulin resistance. Patient does not tolerate GLP-1 therapy. Discussed addition of SGLT-2 to help minimize need for additional insulin and patient agrees to trial it. Discussed risks/benefits and warnings of new medication. Patient expresses understanding. Renal fxn and LFTs WNL. ? START empagliflozin 10mg once daily - one time use voucher provided, titrate to 25mg if tolerating next visit ? CONTINUE insulin glargine 130 units QAM, lispro 50 units TID meals, metformin 1,000mg BID ? Instructed patient to continue checking BGs and bring glucometer to next PharmD visit ? A1c, CMP end of August 2. Uncontrolled hypertension - ICD9: 401.9, ICD10: I10 BP goal < 140/90, pt is at goal on current therapy. Tolerating and compliant with therapy. Renal fxn and K+ WNL. Na slightly low but improved from last BMP. ? CONTINUE lisinopril 40mg, HCTZ 25mg, spironolactone 100mg, amlodipine 10mg once daily, and carvedilol 25mg BID 3. Hyperlipidemia with target LDL less than 70 - ICD9: 272.4, ICD10: E78.5 Pt is on appropriate statin intensity (high intensity d/t clinical ASCVD). LFTs and renal fxn WNL. ? CONTINUE atorvastatin 40mg once daily Health Maintenance issues addressed: DILATED RETINAL EXAM due on 04/26/2017 Patient is scheduled to see PCP 08/23. Patient to return to clinic for PharmD f/u on 09/06. Patient verbalized understanding of instructions. Saman Parkinson, VikasD, BCPS CNOV Observed: 08/05/2017 Status: COMPLETED Source: [place] 11:00 AM [facility] REPOSITORY Office Visit (PHMEWO) JAKE BLANKENSHIP ([id number]) 1965 M Date Time Provider Department 08/05/17 11:00 AM TESHA (PHARMACIST)SAMAN MEPAULINA During your visit today, we recorded the following information about you: Tesha (Pharmacist)Saman 08/05/2017 12:22 PM Signed Patient consents to pharmacy collaborative practice agreement. REASON FOR CONSULT: DM GOALS: A1c < 8% CONSULTING PROVIDER: Dr. Cisneros Date of Consult: 02/2017 Jake Blankenship is a 52 year old male was last seen in [facility] by PCP, Leida Peterson on 06/01. Patient is presenting today for f/u pharmacotherapy management appointment for DM. At last PharmD visit on 06/29 insulin glargine was increased from 120 to 130 units; lispro from 40 to 50 units TID. Past DM medicines: Dulaglutide - stomach upset Soliqua - stomach upset INTERIM HISTORY: Reports feeling well overall No issues or complaints Current DM Medications: Insulin glargine 300 units/mL 130 units QAM Insulin lispro 50 units TID meals Metformin 1,000mg BID Current HTN Medications: Lisinopirl 40mg once daily HCTZ 25mg once daily Amlodipine 10mg once daily Carvedilol 25mg BID Spironolactone 100mg once daily Preventative Medications: ? On GEENA/ARB: Yes ? On Statin: Yes ? On ASA: Yes ROS: ? Patient denies CP, SOB, PEREZ, blurred vision, dizziness or lightheadedness ? Patient denies symptoms of hypoglycemia (sweating, anxiety, palpitations, hunger, and tremor) ? Patient denies symptoms of hyperglycemia (polyuria, polydipsia, polyphagia) ? Patient denies potential medication adverse effects DIET/EXERCISE/SOCIAL Hx: ? Beverages: down to 1 pop every 2 days ? Exercise: more active outside MEDICATIONS: ? Pill bottles are not present. ? Adherence: denies missed doses. ? [facility] ? Rx coverage: [employer] ? Affordability: no issues ? Diabetes supplies: Relion ? Organization System: pillbox ACTIVE PROBLEM LIST Coronary Artery Disease S/P Angioplasty With Stent Uncontrolled Hypertension Hyperlipidemia With Target Ldl Less Than 70 Proteinuria Uncontrolled Type 2 Diabetes Mellitus With Insulin Therapy ([facility]) Myocardial Infarction ([facility]) Edema MELODIE (obstructive sleep apnea) AHI 11 PAST MEDICAL HISTORY Diagnosis Date - Diabetes ([facility]) - Hypertension - [place] (myocardial infarction) ([facility]) 03-12-09 stent placement - Myocardial infarction ([facility]) 03/16/2014 ALLERGIES Allergen Reactions - Pravachol [Pravasta* Intolerance Myalgias/arthralgias. Resolved off med. Current Outpatient Prescriptions: meloxicam (MOBIC) 15 mg tablet Take 1 tablet by mouth once daily as needed. Take with food. benzonatate (TESSALON PERLE) 100 mg capsule Take 1-2 capsules tid prn albuterol HFA (VENTOLIN HFA) 90 mcg/actuation inhaler Inhale 2 Puffs as instructed every 4 hours as needed for Wheezing/Shortness of Breath. Insulin [place], Disposable, 31 gauge x 1/4 ndle insulin glargine (TOUJEO SOLOSTAR U-300 INSULIN) 300 unit/mL (1.5 mL) inpn Inject 130 Units subcutaneously every morning. 80 units plus 50 units insulin lispro (HUMALOG KWIKPEN) 100 unit/mL inpn Inject 50 Units subcutaneously w MEALS. metFORMIN (GLUCOPHAGE) 1,000 mg tablet Take 1 tablet by mouth twice daily. amLODIPine (NORVASC) 10 mg tablet Take 1 tablet by mouth once daily. atorvastatin (LIPITOR) 40 mg tablet Take 1 tablet by mouth daily at bedtime. For cholesterol. carvedilol (COREG) 25 mg tablet Take 1 tablet by mouth twice daily with meals. hydroCHLOROthiazide (HYDRODIURIL, ESIDRIX) 25 mg tablet Take 1 tablet by mouth once daily. lisinopril (ZESTRIL, PRINIVIL) 40 mg tablet Take 1 tablet by mouth once daily. spironolactone (ALDACTONE) 100 mg tablet Take 1 tablet by mouth once daily. insulin syringe,safetyneedle 1 mL 31 gauge x 5/16 syrg Use three times daily with regular insulin omeprazole (PRILOSEC) 20 mg capsule Take 1 capsule by mouth once daily. EASY TOUCH 31 gauge x 3/16 ndle Use with meal-time insulin injections five times daily. beclomethasone (QVAR) 40 mcg/actuation inhaler Inhale 2 Puffs as instructed twice daily. CLOTRIMAZOLE (LOTRIMIN TOPICAL) Apply to affected area. aspirin, enteric coated (ASPIR-81) 81 mg EC tablet Take 1 tablet by mouth once daily. No current facility-administered medications for this visit. Rx meds not listed in EPIC: none OTCs: none Herbals: none GLYCEMIC CONTROL: ? Glucometer present at visit: No ? SMBG?s: ? FBGs 185 this morning, usually 200s ? Before supper 90 sometimes ? Hypoglycemia: denies Last 3 Encounter BP Readings: Date: BP: 07/02/2017 152/82 06/29/2017 135/68 06/01/2017 130/72 Wt: 146.3 kg (322 lb 9.6 oz) BMI: 50.53 kg/(m2) LABS Lab Results Component Value Date HBA1C 10.8 05/30/2017 HBA1C 9.9 02/02/2017 HBA1C 9.4 09/07/2016 CMP: Glucose 317 05/30/2017 BUN 22 05/30/2017 Creatinine 1.48 05/30/2017 Sodium 134 05/30/2017 Potassium 5.1 05/30/2017 Chloride 100 05/30/2017 CO2 18 05/30/2017 Protein, Total 7.2 02/02/2017 Albumin 3.8 02/02/2017 Calcium 9.5 05/30/2017 Alkaline Phosphatase 73 02/02/2017 Bilirubin, Total 0.3 02/02/2017 AST 32 02/02/2017 ALT 39 02/02/2017 Estimated Creatinine Clearance: 79.3 mL/min (A) (based on SCr of 1.48 mg/dL (H)). Last Lipid Panel Lab Results Component Value Date CHOL 135 02/02/2017 Lab Results Component Value Date HDL 29 02/02/2017 Lab Results Component Value Date LDL 62 02/02/2017 Lab Results Component Value Date TG 219 02/02/2017 Albumin/Creat Ratio (mg/g) Date Value 02/02/2017 1,727 (H) PHARMACOTHERAPY ASSESSMENT/PLAN: 1. Uncontrolled type 2 diabetes mellitus with insulin therapy ([facility]) - ICD9: 250.02, V58.67, ICD10: E11.65, Z79.4 (primary diagnosis) A1c goal < 8% per Consult (could consider tighter goal of < 7% d/t age), patient is not at goal (10.8% on 05/30/17). Recheck end of August. SMBGs reported to be improving but still above goal. Patient is compliant and tolerating current therapy. With high doses of basal insulin, suspect some absorption issues and/or insulin resistance. Patient does not tolerate GLP-1 therapy. Discussed addition of SGLT-2 to help minimize need for additional insulin and patient agrees to trial it. Discussed risks/benefits and warnings of new medication. Patient expresses understanding. Renal fxn and LFTs WNL. ? START empagliflozin 10mg once daily - one time use voucher provided, titrate to 25mg if tolerating next visit ? CONTINUE insulin glargine 130 units QAM, lispro 50 units TID meals, metformin 1,000mg BID ? Instructed patient to continue checking BGs and bring glucometer to next PharmD visit ? A1c, [facility] end of August 2. Uncontrolled hypertension - ICD9: 401.9, ICD10: I10 BP goal < 140/90, pt is at goal on current therapy. Tolerating and compliant with therapy. Renal fxn and K+ WNL. Na slightly low but improved from last BMP. ? CONTINUE lisinopril 40mg, HCTZ 25mg, spironolactone 100mg, amlodipine 10mg once daily, and carvedilol 25mg BID 3. Hyperlipidemia with target LDL less than 70 - ICD9: 272.4, ICD10: E78.5 Pt is on appropriate statin intensity (high intensity d/t clinical ASCVD). LFTs and renal fxn WNL. ? CONTINUE atorvastatin 40mg once daily Health Maintenance issues addressed: DILATED RETINAL EXAM due on 04/26/2017 Patient is scheduled to see PCP 08/23. Patient to return to clinic for PharmD f/u on 09/06. Patient verbalized understanding of instructions. Saman Parkinson, PharmD, [facility] Tesha (Pharmacist)Saman 08/05/2017 11:08 AM Signed Blood work - A1c, [facility] end of August Toujeo 130 units Humalog 50 units with meals Metformin twice daily ADD Jardiance once per day Referring Provider: LEIDA CISNEROS [[id number]] Allergies As of Date: 08/05/2017 Noted Allergy Reaction PRAVACHOL (PRAVASTATIN SODIUM) 08/11/2009 5 - Intolerance Comments: Myalgias/arthralgias. Resolved off med. Date Reviewed: 07/02/2017 Reviewed by: Jane Maldonado LPN - Fully Assessed Reason for Visit: Allied Health Visit [5] Cmt: DM follow-up Primary Visit Diagnosis:Uncontrolled type 2 diabetes mellitus with insulin therapy ([facility]) [E11.65, Z79.4] Other Visit Diagnoses:Uncontrolled hypertension [I10] Hyperlipidemia with target LDL less than 70 [E78.5] Order(s):COMP METABOLIC PANEL [SQCMP] Order #: [id number] FUTURE insulin lispro (HUMALOG KWIKPEN) 100 unit/mL inpnInject 50 Units subcutaneously w MEALS.Disp: Rfl: empagliflozin (JARDIANCE) 10 mg tabletTake 1 tablet by mouth once daily.Disp: 30 tabletRfl: 0 Prescriptions as of 08/05/2017 Sig: INSULIN LISPRO (U-100) 100 UN* Inject 50 Units subcutaneousl* MELOXICAM 15 MG TABLET Take 1 tablet by mouth once d* INSULIN GLARGINE (U-300) 300 * Inject 130 Units subcutaneous* METFORMIN 1,000 MG TABLET Take 1 tablet by mouth twice * AMLODIPINE 10 MG TABLET Take 1 tablet by mouth once d* ATORVASTATIN 40 MG TABLET Take 1 tablet by mouth daily * CARVEDILOL 25 MG TABLET Take 1 tablet by mouth twice * HYDROCHLOROTHIAZIDE 25 MG TAB* Take 1 tablet by mouth once d* LISINOPRIL 40 MG TABLET Take 1 tablet by mouth once d* SPIRONOLACTONE 100 MG TABLET Take 1 tablet by mouth once d* OMEPRAZOLE 20 MG CAPSULE,ANAI* Take 1 capsule by mouth once * ASPIRIN 81 MG TABLET,DELAYED * Take 1 tablet by mouth once d* INSULIN SYRINGE-NEEDLE U-100 * EMPAGLIFLOZIN 10 MG TABLET Take 1 tablet by mouth once d* ALBUTEROL SULFATE HFA 90 MCG/* Inhale 2 Puffs as instructed * PEN NEEDLE, DIABETIC 31 GAUGE* INSULIN SYRINGE WITH SAFETY N* Use three times daily with re* EASY TOUCH 31 GAUGE X 3/16 N* Use with meal-time insulin in* BECLOMETHASONE DIPROPIONATE 4* Inhale 2 Puffs as instructed * LOTRIMIN TOPICAL Apply to affected area. Problem List As Of Date 08/05/2017 Noted Resolved Coronary Artery Disease [I25.10] INVALID FOR* s/p Angioplasty with Stent INVALID FOR* Uncontrolled hypertension [I10] INVALID FOR* More... Hyperlipidemia with target LDL less than 70 [E7*INVALID FOR* Diabetes mellitus ([facility]CC) [E11.9] INVALID FOR*10/15/2013 Proteinuria [R80.9] INVALID FOR* More... Uncontrolled type 2 diabetes mellitus with insu*INVALID FOR* Myocardial infarction ([facility]) [I21.9] INVALID FOR* Edema [R60.9] INVALID FOR* MELODIE (obstructive sleep apnea) AHI 11 [G47.33] INVALID FOR* Other instructions from your clinician: Blood work - A1c, [facility] end of August Toujeo 130 units Humalog 50 units with meals Metformin twice daily ADD Jardiance once per day Prescriptions ordered this encounter Disp Refills Start End INSULIN LISPRO (U-100) 100 UNIT/ML S* 08/05/2017 Class: Med Update Route: SUBCUTANEOUS Sig: Inject 50 Units subcutaneously w MEALS. EMPAGLIFLOZIN 10 MG TABLET 30 t* 0 08/05/2017 Route: ORAL Sig: Take 1 tablet by mouth once daily. Medications Discontinued During This Encounter benzonatate (TESSALON PERLE) 100 mg * 40 c* 0 07/02/2017 08/05/2017 Sig: Take 1-2 capsules tid prn Disc: Course of therapy completed insulin lispro (HUMALOG KWIKPEN) 100* 15 P* 12 06/29/2017 08/05/2017 Route: SUBCUTANEOUS Sig: Inject 50 Units subcutaneously w MEALS. Disc: Reason for discontinue is not on file. Encounter Status:Closed by TESHA (PHARMACIST)SAMAN on 08/05/17 PROGRESS Observed: 07/02/2017 Status: COMPLETED Source: [place] 12:40 PM [facility] REPOSITORY HNO ID: [id number] Author: Patsy (Anthony Sampson Service: (none) Author Type: Nurse Practitioner Type: Progress Notes Filed: 07/02/2017 12:56 PM Note Text: Subjective The history is provided by the patient and the spouse. No zipper cutter was used. SAMMY Blankenship is a 52 year old male who presents today with his for CC of head and chest congestion This started 2-3 days He is also having a cough Symptoms are worsened by nothing He has tried nyquil, alkaseltzer plus cold Risk factors none note PMH CAD, T2D, non smoker BP 152/82 Pulse 77 Temp 36.8 ?C (98.2 ?F) (Tympanic) Resp 16 Wt (!) 146.3 kg (322 lb 9.6 oz) SpO2 95% BMI 50.53 kg/m2 ALLERGIES Allergen Reactions - Pravachol [Pravasta* Intolerance Myalgias/arthralgias. Resolved off med. 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 Review of Systems Constitutional: Positive for fever. Negative for chills and malaise/fatigue. HENT: Positive for congestion. Negative for ear pain, sinus pain and sore throat. Respiratory: Positive for cough. Negative for sputum production, shortness of breath and wheezing. Cardiovascular: Negative for chest pain. Musculoskeletal: Negative for myalgias. Skin: Negative for rash. Neurological: Negative for headaches. Objective Physical Exam Constitutional: He is well-developed, well-nourished, and in no distress. HENT: Head: Normocephalic and atraumatic. Right Ear: Tympanic membrane, external ear and ear canal normal. Tympanic membrane is not injected, not erythematous, not retracted and not bulging. No middle ear effusion. Left Ear: Tympanic membrane, external ear and ear canal normal. Tympanic membrane is not injected, not erythematous, not retracted and not bulging. No middle ear effusion. Nose: Mucosal edema and rhinorrhea present. Right sinus exhibits no maxillary sinus tenderness and no frontal sinus tenderness. Left sinus exhibits no maxillary sinus tenderness and no frontal sinus tenderness. Mouth/Throat: Uvula is midline and mucous membranes are normal. Posterior oropharyngeal erythema present. No oropharyngeal exudate, posterior oropharyngeal edema or tonsillar abscesses. Clear PND Eyes: Conjunctivae and EOM are normal. Pupils are equal, round, and reactive to light. Neck: Normal range of motion. Cardiovascular: Normal rate, regular rhythm and normal heart sounds. Pulmonary/Chest: Effort normal and breath sounds normal. No respiratory distress. He has no decreased breath sounds. He has no wheezes. He has no rhonchi. He has no rales. A dry hacking cough was noted during this encounter. Talking in full sentences. Handling secretions without drooling. Lips and nailbeds are pink without cyanosis. Lymphadenopathy: Head (right side): No submental, no submandibular, no tonsillar, no preauricular and no posterior auricular adenopathy present. Head (left side): No submental, no submandibular, no tonsillar, no preauricular and no posterior auricular adenopathy present. He has no cervical adenopathy. Right cervical: No superficial cervical and no posterior cervical adenopathy present. Left cervical: No superficial cervical and no posterior cervical adenopathy present. Right: No supraclavicular adenopathy present. Left: No supraclavicular adenopathy present. Skin: Skin is warm and dry. Psychiatric: Affect normal. Nursing note and vitals reviewed. ASSESSMENT/PLAN: 1. URI with cough and congestion - ICD9: 465.9, ICD10: J06.9 - Discussed viral etiology and rationale for treatment. Rest as much as possible. Tylenol as needed for fever or pain. Salt water gargles, chloraseptic spray or lozenges as needed for sore throat. Nasal saline irrigation at least 2 x day. Drink at least 8 glasses of fluids per day that aren't caffeinated. Eat a nutritious diet. Use a humidifier in your room at night. Tylenol (generic acetaminophen) 500 mg-2 tabs every 8 hrs. as needed for fever and aches -Mucinex (generic is fine) 1200 mg twice daily to help with cough and to thin out mucus Benedryl, zyrtec, claritin or angelic Flonase or Nasonex 1 spray each nostril two times a day. -http://www.choosingwisely.org/patient-resources/antibiotics/. This link shares information about when antibiotics may help and when they may not. - BENZONATATE 100 MG CAPSULE - ALBUTEROL SULFATE HFA 90 MCG/ACTUATION AEROSOL INHALER 2. Wheezing - ICD9: 786.07, ICD10: R06.2 Albuterol as prescribed Diagnosis and treatment plan were discussed and questions were answered to the patient's satisfaction. Pt acknowledged understanding of concepts and follow up plan. Specific signs and symptoms that would indicate the need for higher level of care were discussed in detail warranting prompt ER evaluation. Patsy Sampson APRN.CNP CNOV Observed: 07/02/2017 Status: COMPLETED Source: [place] 12:30 PM [facility] REPOSITORY Office Visit ([facility]) JAKE BLANKENSHIP ([id number]) 1965 M Date Time Provider Department 07/02/17 12:30 PM PATSY SAMPSON (ALEX) [facility] During your visit today, we recorded the following information about you: Temperature Pulse Respiration Blood pressure 98.2 degrees 77/minute 16/minute 152/82 Weight 146.3 kg Patsy Sampson APRN.CNP 07/02/2017 12:56 PM Signed Subjective The history is provided by the patient and the spouse. No zipper cutter was used. SAMMY Jake Blankenship is a 52 year old male who presents today with his for CC of head and chest congestion This started 2-3 days He is also having a cough Symptoms are worsened by nothing He has tried nyquil, alkaseltzer plus cold Risk factors none note PMH CAD, T2D, non smoker BP 152/82 Pulse 77 Temp 36.8 ?C (98.2 ?F) (Tympanic) Resp 16 Wt (!) 146.3 kg (322 lb 9.6 oz) SpO2 95% BMI 50.53 kg/m2 ALLERGIES Allergen Reactions - Pravachol [Pravasta* Intolerance Myalgias/arthralgias. Resolved off med. 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 Review of Systems Constitutional: Positive for fever. Negative for chills and malaise/fatigue. HENT: Positive for congestion. Negative for ear pain, sinus pain and sore throat. Respiratory: Positive for cough. Negative for sputum production, shortness of breath and wheezing. Cardiovascular: Negative for chest pain. Musculoskeletal: Negative for myalgias. Skin: Negative for rash. Neurological: Negative for headaches. Objective Physical Exam Constitutional: He is well-developed, well-nourished, and in no distress. HENT: Head: Normocephalic and atraumatic. Right Ear: Tympanic membrane, external ear and ear canal normal. Tympanic membrane is not injected, not erythematous, not retracted and not bulging. No middle ear effusion. Left Ear: Tympanic membrane, external ear and ear canal normal. Tympanic membrane is not injected, not erythematous, not retracted and not bulging. No middle ear effusion. Nose: Mucosal edema and rhinorrhea present. Right sinus exhibits no maxillary sinus tenderness and no frontal sinus tenderness. Left sinus exhibits no maxillary sinus tenderness and no frontal sinus tenderness. Mouth/Throat: Uvula is midline and mucous membranes are normal. Posterior oropharyngeal erythema present. No oropharyngeal exudate, posterior oropharyngeal edema or tonsillar abscesses. Clear PND Eyes: Conjunctivae and EOM are normal. Pupils are equal, round, and reactive to light. Neck: Normal range of motion. Cardiovascular: Normal rate, regular rhythm and normal heart sounds. Pulmonary/Chest: Effort normal and breath sounds normal. No respiratory distress. He has no decreased breath sounds. He has no wheezes. He has no rhonchi. He has no rales. A dry hacking cough was noted during this encounter. Talking in full sentences. Handling secretions without drooling. Lips and nailbeds are pink without cyanosis. Lymphadenopathy: Head (right side): No submental, no submandibular, no tonsillar, no preauricular and no posterior auricular adenopathy present. Head (left side): No submental, no submandibular, no tonsillar, no preauricular and no posterior auricular adenopathy present. He has no cervical adenopathy. Right cervical: No superficial cervical and no posterior cervical adenopathy present. Left cervical: No superficial cervical and no posterior cervical adenopathy present. Right: No supraclavicular adenopathy present. Left: No supraclavicular adenopathy present. Skin: Skin is warm and dry. Psychiatric: Affect normal. Nursing note and vitals reviewed. ASSESSMENT/PLAN: 1. URI with cough and congestion - ICD9: 465.9, ICD10: J06.9 - Discussed viral etiology and rationale for treatment. Rest as much as possible. Tylenol as needed for fever or pain. Salt water gargles, chloraseptic spray or lozenges as needed for sore throat. Nasal saline irrigation at least 2 x day. Drink at least 8 glasses of fluids per day that aren't caffeinated. Eat a nutritious diet. Use a humidifier in your room at night. Tylenol (generic acetaminophen) 500 mg-2 tabs every 8 hrs. as needed for fever and aches -Mucinex (generic is fine) 1200 mg twice daily to help with cough and to thin out mucus Benedryl, zyrtec, claritin or angelic Flonase or Nasonex 1 spray each nostril two times a day. -http://www.choosingwisely.org/patient-resources/antibiotics/. This link shares information about when antibiotics may help and when they may not. - BENZONATATE 100 MG CAPSULE - ALBUTEROL SULFATE HFA 90 MCG/ACTUATION AEROSOL INHALER 2. Wheezing - ICD9: 786.07, ICD10: R06.2 Albuterol as prescribed Diagnosis and treatment plan were discussed and questions were answered to the patient's satisfaction. Pt acknowledged understanding of concepts and follow up plan. Specific signs and symptoms that would indicate the need for higher level of care were discussed in detail warranting prompt ER evaluation. Patsy Sampson APRN.ALEX Sampson APRN.ALEX 07/02/2017 12:56 PM Addendum ASSESSMENT/PLAN: 1. URI with cough and congestion - ICD9: 465.9, ICD10: J06.9 - Discussed viral etiology and rationale for treatment. Rest as much as possible. Tylenol as needed for fever or pain. Salt water gargles, chloraseptic spray or lozenges as needed for sore throat. Nasal saline irrigation at least 2 x day. Drink at least 8 glasses of fluids per day that aren't caffeinated. Eat a nutritious diet. Use a humidifier in your room at night. Tylenol (generic acetaminophen) 500 mg-2 tabs every 8 hrs. as needed for fever and aches -Mucinex (generic is fine) 1200 mg twice daily to help with cough and to thin out mucus Benedryl, zyrtec, claritin or angelic Flonase or Nasonex 1 spray each nostril two times a day. -http://www.[employer].org/patient-resources/antibiotics/. This link shares information about when antibiotics may help and when they may not. - BENZONATATE 100 MG CAPSULE - ALBUTEROL SULFATE HFA 90 MCG/ACTUATION AEROSOL INHALER 2. Wheezing - ICD9: 786.07, ICD10: R06.2 Albuterol as prescribed Referring Provider: SELF [200] Allergies As of Date: 07/02/2017 Noted Allergy Reaction PRAVACHOL (PRAVASTATIN SODIUM) 08/11/2009 5 - Intolerance Comments: Myalgias/arthralgias. Resolved off med. Date Reviewed: 07/02/2017 Reviewed by: Jane Maldonado LPN - Fully Assessed Reason for Visit: head and chest congestion, cough [Other] Cmt: x 2-3 days Primary Visit Diagnosis:URI with cough and congestion [J06.9] Other Visit Diagnosis:Wheezing [R06.2] Order(s):benzonatate (TESSALON PERLE) 100 mg capsuleTake 1- 2 capsules tid prnDisp: 40 capsuleRfl: 0 albuterol HFA (VENTOLIN HFA) 90 mcg/actuation inhalerInhale 2 Puffs as instructed every 4 hours as needed for Wheezing/Shortness of Breath.Disp: 1 InhalerRfl: 0 Prescriptions as of 07/02/2017 Sig: PEN NEEDLE, DIABETIC 31 GAUGE* INSULIN GLARGINE (U-300) 300 * Inject 130 Units subcutaneous* INSULIN LISPRO (U-100) 100 UN* Inject 50 Units subcutaneousl* METFORMIN 1,000 MG TABLET Take 1 tablet by mouth twice * AMLODIPINE 10 MG TABLET Take 1 tablet by mouth once d* ATORVASTATIN 40 MG TABLET Take 1 tablet by mouth daily * CARVEDILOL 25 MG TABLET Take 1 tablet by mouth twice * HYDROCHLOROTHIAZIDE 25 MG TAB* Take 1 tablet by mouth once d* LISINOPRIL 40 MG TABLET Take 1 tablet by mouth once d* SPIRONOLACTONE 100 MG TABLET Take 1 tablet by mouth once d* INSULIN SYRINGE WITH SAFETY N* Use three times daily with re* MELOXICAM 15 MG TABLET Take 1 tablet by mouth once d* OMEPRAZOLE 20 MG CAPSULE,ANAI* Take 1 capsule by mouth once * EASY TOUCH 31 GAUGE X /16 N* Use with meal-time insulin in* BECLOMETHASONE DIPROPIONATE 4* Inhale 2 Puffs as instructed * LOTRIMIN TOPICAL Apply to affected area. ASPIRIN 81 MG TABLET,DELAYED * Take 1 tablet by mouth once d* BENZONATATE 100 MG CAPSULE Take 1-2 capsules tid prn ALBUTEROL SULFATE HFA 90 MCG/* Inhale 2 Puffs as instructed * Problem List As Of Date 07/02/2017 Noted Resolved Coronary Artery Disease [I25.10] INVALID FOR* s/p Angioplasty with Stent INVALID FOR* Uncontrolled hypertension [I10] INVALID FOR* More... Hyperlipidemia with target LDL less than 70 [E7*INVALID FOR* Diabetes mellitus (HCC) [E11.9] INVALID FOR*10/15/2013 Proteinuria [R80.9] INVALID FOR* More... Uncontrolled type 2 diabetes mellitus with insu*INVALID FOR* Myocardial infarction (HCC) [I21.9] INVALID FOR* Edema [R60.9] INVALID FOR* MELODIE (obstructive sleep apnea) AHI 11 [G47.33] INVALID FOR* Other instructions from your clinician: ASSESSMENT/PLAN: 1. URI with cough and congestion - ICD9: 465.9, ICD10: J06.9 - Discussed viral etiology and rationale for treatment. Rest as much as possible. Tylenol as needed for fever or pain. Salt water gargles, chloraseptic spray or lozenges as needed for sore throat. Nasal saline irrigation at least 2 x day. Drink at least 8 glasses of fluids per day that aren't caffeinated. Eat a nutritious diet. Use a humidifier in your room at night. Tylenol (generic acetaminophen) 500 mg-2 tabs every 8 hrs. as needed for fever and aches -Mucinex (generic is fine) 1200 mg twice daily to help with cough and to thin out mucus Benedryl, zyrtec, claritin or angelic Flonase or Nasonex 1 spray each nostril two times a day. -http://www.choosingwisely.org/patient-resources/antibiotics/. This link shares information about when antibiotics may help and when they may not. - BENZONATATE 100 MG CAPSULE - ALBUTEROL SULFATE HFA 90 MCG/ACTUATION AEROSOL INHALER 2. Wheezing - ICD9: 786.07, ICD10: R06.2 Albuterol as prescribed Prescriptions ordered this encounter Disp Refills Start End BENZONATATE 100 MG CAPSULE 40 c* 0 07/02/2017 Sig: Take 1-2 capsules tid prn ALBUTEROL SULFATE HFA 90 MCG/ACTUATI* 1 In* 0 07/02/2017 Route: INHALATION Sig: Inhale 2 Puffs as instructed every 4 hours as needed for Wheezing/Shortness of Breath. Encounter Status:Closed by PATSY SAMPSON CNP on 07/02/17 PROGRESS Observed: 06/29/2017 Status: COMPLETED Source: [place] 11:30 AM [facility] REPOSITORY HNO ID: [id number] Author: Saman Parkinson (Pharmacist) Service: (none) Author Type: Pharmacist Type: Progress Notes Filed: 06/29/2017 12:41 PM Note Text: Patient consents to pharmacy collaborative practice agreement. REASON FOR CONSULT: DM GOALS: A1c < 8% CONSULTING PROVIDER: Dr. Cisneros Date of Consult: 02/2017 Jake Blankenship is a 52 year old male was last seen in [facility] by PCP, Dr. LEIDA CISNEROS MD on 06/01/17. Patient is presenting today for /fu pharmacotherapy management appointment for DM. At last PharmD visit patient was continued on current regimen and insulin glargine was moved to AM. RENONCILE DISPENSE Hx: Reports doing well overall Did discuss gastric bypass with PCP but elects to wait at this time Reports PCP thought about weight loss medication but likely cannot prescribe d/t heart history Patient attempting to lose weight through lifestyle modifications at this time Past DM medications: Current DM Medications: Insulin glargine 300 units/mL 120 units QAM Insulin lispro 40 units TID meals (sometimes reports taking 50 units) Metformin 1,000mg BID Current HTN Medications: Lisinopirl 40mg once daily HCTZ 25mg once daily Amlodipine 10mg once daily Carvedilol 25mg BID Spironolactone 100mg once daily Preventative Medications: ? On GEENA/ARB: Yes ? On Statin: Yes ? On ASA: Yes ROS: ? Patient denies CP, SOB, PEREZ, blurred vision, dizziness or lightheadedness ? Patient denies symptoms of hypoglycemia (sweating, anxiety, palpitations, hunger, and tremor) ? Patient denies symptoms of hyperglycemia (polyuria, polydipsia, polyphagia) ? Patient denies potential medication adverse effects DIET/EXERCISE/SOCIAL Hx: ? Breakfast: sausage/egg mcmuffin or alarcon/egg sandwich ? Lunch: deli or half ham sandwich on wheat bread ? Dinner: hamburger or stew or soup ? Snacks: seldom, sometimes at night ? Following Na restrictions: no ? Beverages: coffee, water, working on cutting out pop ? Exercise: working, more in nice weather ? Tobacco: denies ? Alcohol: denies ? Illicits: denies MEDICATIONS: ? Pill bottles are not present. ? Adherence: denies missed doses. ? [facility] ? Rx coverage: [employer] ? Affordability: no issues ? Diabetes supplies: [employer] ? Organization System: [employer] ACTIVE PROBLEM LIST Coronary Artery Disease S/P Angioplasty With Stent Uncontrolled Hypertension Hyperlipidemia With Target Ldl Less Than 70 Proteinuria Uncontrolled Type 2 Diabetes Mellitus With Insulin Therapy (Hcc) Myocardial Infarction ([facility]) Edema MELODIE (obstructive sleep apnea) AHI 11 PAST MEDICAL HISTORY Diagnosis Date - Diabetes ([facility]) - Hypertension - [place] (myocardial infarction) ([facility]) 03-12-09 stent placement - Myocardial infarction ([facility]) 03/16/2014 ALLERGIES Allergen Reactions - Pravachol [Pravasta* Intolerance Myalgias/arthralgias. Resolved off med. Current Outpatient Prescriptions: insulin glargine (TOUJEO SOLOSTAR U-300 INSULIN) 300 unit/mL (1.5 mL) inpn Inject 120 Units subcutaneously every morning. metFORMIN (GLUCOPHAGE) 1,000 mg tablet Take 1 tablet by mouth twice daily. amLODIPine (NORVASC) 10 mg tablet Take 1 tablet by mouth once daily. atorvastatin (LIPITOR) 40 mg tablet Take 1 tablet by mouth daily at bedtime. For cholesterol. carvedilol (COREG) 25 mg tablet Take 1 tablet by mouth twice daily with meals. hydroCHLOROthiazide (HYDRODIURIL, ESIDRIX) 25 mg tablet Take 1 tablet by mouth once daily. lisinopril (ZESTRIL, PRINIVIL) 40 mg tablet Take 1 tablet by mouth once daily. spironolactone (ALDACTONE) 100 mg tablet Take 1 tablet by mouth once daily. insulin syringe,safetyneedle 1 mL 31 gauge x 5/16 syrg Use three times daily with regular insulin meloxicam (MOBIC) 15 mg tablet Take 1 tablet by mouth once daily as needed. Take with food. omeprazole (PRILOSEC) 20 mg capsule Take 1 capsule by mouth once daily. insulin lispro (HUMALOG KWIKPEN) 100 unit/mL inpn Inject 40 Units subcutaneously w MEALS. EASY TOUCH 31 gauge x 3/16 ndle Use with meal-time insulin injections five times daily. beclomethasone (QVAR) 40 mcg/actuation inhaler Inhale 2 Puffs as instructed twice daily. CLOTRIMAZOLE (LOTRIMIN TOPICAL) Apply to affected area. aspirin, enteric coated (ASPIR-81) 81 mg EC tablet Take 1 tablet by mouth once daily. No current facility-administered medications for this visit. Rx meds not listed in EPIC: none OTCs: none Herbals: none GLYCEMIC CONTROL: ? Glucometer present at visit: No ? SMBG?s: Date Fasting AM 2 hr PP Before Lunch 2 hr PP Before Dinner 2 hr PP Bedtime 06/22 264 248 06/20 235 06/19 312 500 412 06/17 219 06/16 257 14 234 06/14 274 181 06/13 174 06/12 271 06/11 276 06/10 266 123 /8 225 156 191 /7 246 135 /6 264 144 158 ? Hypoglycemia: no VITALS: BP 135/68 Pulse 60 Last 3 Encounter BP Readings: Date: BP: 06/01/2017 130/72 04/13/2017 131/76 04/11/2017 137/75 Wt: 144.7 kg (319 lb) BMI: 49.96 kg/(m2) LABS Lab Results Component Value Date HBA1C 10.8 05/30/2017 HBA1C 9.9 02/02/2017 HBA1C 9.4 09/07/2016 CMP: Glucose 317 05/30/2017 BUN 22 05/30/2017 Creatinine 1.48 05/30/2017 Sodium 134 05/30/2017 Potassium 5.1 05/30/2017 Chloride 100 05/30/2017 CO2 18 05/30/2017 Protein, Total 7.2 02/02/2017 Albumin 3.8 02/02/2017 Calcium 9.5 05/30/2017 Alkaline Phosphatase 73 02/02/2017 Bilirubin, Total 0.3 02/02/2017 AST 32 02/02/2017 ALT 39 02/02/2017 Estimated Creatinine Clearance: 78.7 mL/min (based on Cr of 1.48). Last Lipid Panel Lab Results Component Value Date CHOL 135 02/02/2017 Lab Results Component Value Date HDL 29 02/02/2017 Lab Results Component Value Date LDL 62 02/02/2017 Lab Results Component Value Date TG 219 02/02/2017 Albumin/Creat Ratio (mg/g) Date Value 02/02/2017 1727 (H) PHARMACOTHERAPY ASSESSMENT/PLAN: 1. Uncontrolled type 2 diabetes mellitus with insulin therapy (HCC) - ICD9: 250.02, V58.67, ICD10: E11.65, Z79.4 (primary diagnosis) A1c goal < 8% per Consult (could consider tighter goal of < 7% d/t age), patient is not at goal (10.8% on 05/30/17). SMBGs significantly above goal. Patient is compliant and tolerating current therapy. Given no instances of hypoglycemia, will increase both basal and prandial insulins at this time. With high doses of basal insulin, suspect some absorption issues and/or insulin resistance. Patient has not tolerated dulaglutide in the past, discussed trial of liraglutide. He will think about it and discuss again next PharmD visit. Also discussed addition of SGLT-2 inhbitor to help minimize need for additional insulin. Will discuss further next visit. Renal fxn and LFTs WNL. ? INCREASE insulin glargine 300 units/mL to 130 units QAM, lispro to 50 units TID meals ? CONTINUE metformin 1,000mg BID ? Instructed patient to continue checking BGs and bring glucometer to next PharmD visit 2. Uncontrolled hypertension - ICD9: 401.9, ICD10: I10 BP goal < 140/90, pt is at goal on current therapy. Tolerating and compliant with therapy. Renal fxn and K+ WNL. Na slightly low but improved from last BMP. ? CONTINUE lisinopril 40mg, HCTZ 25mg, spironolactone 100mg, amlodipine 10mg once daily, and carvedilol 25mg BID 3. Hyperlipidemia with target LDL less than 70 - ICD9: 272.4, ICD10: E78.5 Pt is on appropriate statin intensity (high intensity d/t clinical ASCVD). LFTs and renal fxn WNL. ? CONTINUE atorvastatin 40mg once daily Health Maintenance issues addressed: DILATED RETINAL EXAM due on 04/26/2017 Patient is scheduled to see PCP 08/23/17. Patient to return to clinic for PharmD f/u on 07/29. Patient verbalized understanding of instructions. Saman Parkinson PharmD, BCPS CNOV Observed: 06/29/2017 Status: COMPLETED Source: [place] 11:30 AM [facility] REPOSITORY Office Visit ([facility]) JAKE BLANKENSHIP ([id number]) 1965 M Date Time Provider Department 06/29/17 11:30 AM [facility] (PHARMACIST)SAMAN During your visit today, we recorded the following information about you: Pulse Blood pressure 60/minute 135/68 YESY PAGAN 06/29/2017 12:41 PM Signed Patient consents to pharmacy collaborative practice agreement. REASON FOR CONSULT: DM GOALS: A1c ANDlt; 8% CONSULTING PROVIDER: Dr. Cisneros Date of Consult: 02/2017 Jake Montanaricco is a 52 year old male was last seen in [facility] by PCP, Dr. LEIDA CISNEROS MD on 06/01/17. Patient is presenting today for /fu pharmacotherapy management appointment for DM. At last PharmD visit patient was continued on current regimen and insulin glargine was moved to AM. RENONCILE DISPENSE Hx: Reports doing well overall Did discuss gastric bypass with PCP but elects to wait at this time Reports PCP thought about weight loss medication but likely cannot prescribe d/t heart history Patient attempting to lose weight through lifestyle modifications at this time Past DM medications: Current DM Medications: Insulin glargine 300 units/mL 120 units QAM Insulin lispro 40 units TID meals (sometimes reports taking 50 units) Metformin 1,000mg BID Current HTN Medications: Lisinopirl 40mg once daily HCTZ 25mg once daily Amlodipine 10mg once daily Carvedilol 25mg BID Spironolactone 100mg once daily Preventative Medications: ? On GEENA/ARB: Yes ? On Statin: Yes ? On ASA: Yes ROS: ? Patient denies CP, SOB, PEREZ, blurred vision, dizziness or lightheadedness ? Patient denies symptoms of hypoglycemia (sweating, anxiety, palpitations, hunger, and tremor) ? Patient denies symptoms of hyperglycemia (polyuria, polydipsia, polyphagia) ? Patient denies potential medication adverse effects DIET/EXERCISE/SOCIAL Hx: ? Breakfast: sausage/egg mcmuffin or alarcon/egg sandwich ? Lunch: deli or half ham sandwich on wheat bread ? Dinner: hamburger or stew or soup ? Snacks: seldom, sometimes at night ? Following Na restrictions: no ? Beverages: coffee, water, working on cutting out pop ? Exercise: working, more in nice weather ? Tobacco: denies ? Alcohol: denies ? Illicits: denies MEDICATIONS: ? Pill bottles are not present. ? Adherence: denies missed doses. ? [facility] ? Rx coverage: [facility] ? Affordability: no issues ? Diabetes supplies: [employer] ? Organization System: [employer] ACTIVE PROBLEM LIST Coronary Artery Disease S/P Angioplasty With Stent Uncontrolled Hypertension Hyperlipidemia With Target Ldl Less Than 70 Proteinuria Uncontrolled Type 2 Diabetes Mellitus With Insulin Therapy (Hcc) Myocardial Infarction (Hcc) Edema EMLODIE (obstructive sleep apnea) AHI 11 PAST MEDICAL HISTORY Diagnosis Date - Diabetes ([facility]) - Hypertension - [place] (myocardial infarction) ([facility]) 03-12-09 stent placement - Myocardial infarction ([facility]) 03/16/2014 ALLERGIES Allergen Reactions - Pravachol [Pravasta* Intolerance Myalgias/arthralgias. Resolved off med. Current Outpatient Prescriptions: insulin glargine (TOUJEO SOLOSTAR U-300 INSULIN) 300 unit/mL (1.5 mL) inpn Inject 120 Units subcutaneously every morning. metFORMIN (GLUCOPHAGE) 1,000 mg tablet Take 1 tablet by mouth twice daily. amLODIPine (NORVASC) 10 mg tablet Take 1 tablet by mouth once daily. atorvastatin (LIPITOR) 40 mg tablet Take 1 tablet by mouth daily at bedtime. For cholesterol. carvedilol (COREG) 25 mg tablet Take 1 tablet by mouth twice daily with meals. hydroCHLOROthiazide (HYDRODIURIL, ESIDRIX) 25 mg tablet Take 1 tablet by mouth once daily. lisinopril (ZESTRIL, PRINIVIL) 40 mg tablet Take 1 tablet by mouth once daily. spironolactone (ALDACTONE) 100 mg tablet Take 1 tablet by mouth once daily. insulin syringe,safetyneedle 1 mL 31 gauge x 5/16ANDquot; syrg Use three times daily with regular insulin meloxicam (MOBIC) 15 mg tablet Take 1 tablet by mouth once daily as needed. Take with food. omeprazole (PRILOSEC) 20 mg capsule Take 1 capsule by mouth once daily. insulin lispro (HUMALOG KWIKPEN) 100 unit/mL inpn Inject 40 Units subcutaneously w MEALS. EASY TOUCH 31 gauge x 3/16ANDquot; ndle Use with meal-time insulin injections five times daily. beclomethasone (QVAR) 40 mcg/actuation inhaler Inhale 2 Puffs as instructed twice daily. CLOTRIMAZOLE (LOTRIMIN TOPICAL) Apply to affected area. aspirin, enteric coated (ASPIR-81) 81 mg EC tablet Take 1 tablet by mouth once daily. No current facility-administered medications for this visit. Rx meds not listed in EPIC: none OTCs: none Herbals: none GLYCEMIC CONTROL: ? Glucometer present at visit: No ? SMBG?s: Date Fasting AM 2 hr PP Before Lunch 2 hr PP Before Dinner 2 hr PP Bedtime 06/22 264 248 06/20 235 18 312 500 412 16 219 15 257 14 234 13 274 181 06/13 174 06/12 271 06/11 276 39 266 123 8 225 156 191 /7 246 135 /6 264 144 158 ? Hypoglycemia: no VITALS: BP 135/68 Pulse 60 Last 3 Encounter BP Readings: Date: BP: 06/01/2017 130/72 04/13/2017 131/76 04/11/2017 137/75 Wt: 144.7 kg (319 lb) BMI: 49.96 kg/(m2) LABS Lab Results Component Value Date HBA1C 10.8 05/30/2017 HBA1C 9.9 02/02/2017 HBA1C 9.4 09/07/2016 CMP: Glucose 317 05/30/2017 BUN 22 05/30/2017 Creatinine 1.48 05/30/2017 Sodium 134 05/30/2017 Potassium 5.1 05/30/2017 Chloride 100 05/30/2017 CO2 18 05/30/2017 Protein, Total 7.2 02/02/2017 Albumin 3.8 02/02/2017 Calcium 9.5 05/30/2017 Alkaline Phosphatase 73 02/02/2017 Bilirubin, Total 0.3 02/02/2017 AST 32 02/02/2017 ALT 39 02/02/2017 Estimated Creatinine Clearance: 78.7 mL/min (based on Cr of 1.48). Last Lipid Panel Lab Results Component Value Date CHOL 135 02/02/2017 Lab Results Component Value Date HDL 29 02/02/2017 Lab Results Component Value Date LDL 62 02/02/2017 Lab Results Component Value Date TG 219 02/02/2017 Albumin/Creat Ratio (mg/g) Date Value 02/02/2017 1727 (H) PHARMACOTHERAPY ASSESSMENT/PLAN: 1. Uncontrolled type 2 diabetes mellitus with insulin therapy (HCC) - ICD9: 250.02, V58.67, ICD10: E11.65, Z79.4 (primary diagnosis) A1c goal ANDlt; 8% per Consult (could consider tighter goal of ANDlt; 7% d/t age), patient is not at goal (10.8% on 05/30/17). SMBGs significantly above goal. Patient is compliant and tolerating current therapy. Given no instances of hypoglycemia, will increase both basal and prandial insulins at this time. With high doses of basal insulin, suspect some absorption issues and/or insulin resistance. Patient has not tolerated dulaglutide in the past, discussed trial of liraglutide. He will think about it and discuss again next PharmD visit. Also discussed addition of SGLT-2 inhbitor to help minimize need for additional insulin. Will discuss further next visit. Renal fxn and LFTs WNL. ? INCREASE insulin glargine 300 units/mL to 130 units QAM, lispro to 50 units TID meals ? CONTINUE metformin 1,000mg BID ? Instructed patient to continue checking BGs and bring glucometer to next PharmD visit 2. Uncontrolled hypertension - ICD9: 401.9, ICD10: I10 BP goal ANDlt; 140/90, pt is at goal on current therapy. Tolerating and compliant with therapy. Renal fxn and K+ WNL. Na slightly low but improved from last BMP. ? CONTINUE lisinopril 40mg, HCTZ 25mg, spironolactone 100mg, amlodipine 10mg once daily, and carvedilol 25mg BID 3. Hyperlipidemia with target LDL less than 70 - ICD9: 272.4, ICD10: E78.5 Pt is on appropriate statin intensity (high intensity d/t clinical ASCVD). LFTs and renal fxn WNL. ? CONTINUE atorvastatin 40mg once daily Health Maintenance issues addressed: DILATED RETINAL EXAM due on 04/26/2017 Patient is scheduled to see PCP 08/23/17. Patient to return to clinic for PharmD f/u on 07/29. Patient verbalized understanding of instructions. Saman Parkinson, PharmD, BCPS SAMAN PARKINSON PHARMACIST 06/29/2017 11:45 AM Signed Toujeo 130 units every morning Humalog 50 units with each meal Call Saman if any questions or concerns Referring Provider: LEIDA CISNEROS [[id number]] Allergies As of Date: 06/29/2017 Noted Allergy Reaction PRAVACHOL (PRAVASTATIN SODIUM) 08/11/2009 5 - Intolerance Comments: Myalgias/arthralgias. Resolved off med. Date Reviewed: 06/01/2017 Reviewed by: Dominga Stauffer LPN - Fully Assessed Reason for Visit: Allied Health Visit [5] Cmt: DM follow-up Primary Visit Diagnosis:Uncontrolled type 2 diabetes mellitus with insulin therapy (HCC) [E11.65, Z79.4] Other Visit Diagnoses:Uncontrolled hypertension [I10] Hyperlipidemia with target LDL less than 70 [E78.5] Order(s):insulin glargine (TOUJEO SOLOSTAR U-300 INSULIN) 300 unit/mL (1.5 mL) inpnInject 130 Units subcutaneously every morning. 80 units plus 50 unitsDisp: 9 PenRfl: 3 BASIC METABOLIC PNL [SQBMP] Order #: [id number] FUTURE insulin lispro (HUMALOG KWIKPEN) 100 unit/mL inpnInject 50 Units subcutaneously w MEALS.Disp: 15 PenRfl: 12 Prescriptions as of 06/29/2017 Sig: INSULIN GLARGINE (U-300) 300 * Inject 130 Units subcutaneous* INSULIN LISPRO (U-100) 100 UN* Inject 50 Units subcutaneousl* METFORMIN 1,000 MG TABLET Take 1 tablet by mouth twice * AMLODIPINE 10 MG TABLET Take 1 tablet by mouth once d* ATORVASTATIN 40 MG TABLET Take 1 tablet by mouth daily * CARVEDILOL 25 MG TABLET Take 1 tablet by mouth twice * HYDROCHLOROTHIAZIDE 25 MG TAB* Take 1 tablet by mouth once d* LISINOPRIL 40 MG TABLET Take 1 tablet by mouth once d* SPIRONOLACTONE 100 MG TABLET Take 1 tablet by mouth once d* MELOXICAM 15 MG TABLET Take 1 tablet by mouth once d* OMEPRAZOLE 20 MG CAPSULE,ANAI* Take 1 capsule by mouth once * ASPIRIN 81 MG TABLET,DELAYED * Take 1 tablet by mouth once d* PEN NEEDLE, DIABETIC 31 GAUGE* INSULIN SYRINGE WITH SAFETY N* Use three times daily with re* EASY TOUCH 31 GAUGE X 3/16 N* Use with meal-time insulin in* BECLOMETHASONE DIPROPIONATE 4* Inhale 2 Puffs as instructed * LOTRIMIN TOPICAL Apply to affected area. Medication notes this encounter PEN NEEDLE, DIABETIC 31 GAUGE X 1/4 >> SAMAN PARKINSON PHARMACIST 06/29/2017 11:32 AM >> TESHA (PHARMACIST)SAMAN Wed Jun 29, 2017 11:32 AM Received from: External Pharmacy Problem List As Of Date 06/29/2017 Noted Resolved Coronary Artery Disease [I25.10] INVALID FOR* s/p Angioplasty with Stent INVALID FOR* Uncontrolled hypertension [I10] INVALID FOR* More... Hyperlipidemia with target LDL less than 70 [E7*INVALID FOR* Diabetes mellitus (HCC) [E11.9] INVALID FOR*10/15/2013 Proteinuria [R80.9] INVALID FOR* More... Uncontrolled type 2 diabetes mellitus with insu*INVALID FOR* Myocardial infarction (HCC) [I21.9] INVALID FOR* Edema [R60.9] INVALID FOR* MELODIE (obstructive sleep apnea) AHI 11 [G47.33] INVALID FOR* Other instructions from your clinician: Toujeo 130 units every morning Humalog 50 units with each meal Call Saman if any questions or concerns Prescriptions ordered this encounter Disp Refills Start End INSULIN GLARGINE (U-300) 300 UNIT/ML* 9 Pen 3 06/29/2017 Route: SUBCUTANEOUS Sig: Inject 130 Units subcutaneously every morning. 80 units plus 50 units INSULIN LISPRO (U-100) 100 UNIT/ML S* 15 P* 12 06/29/2017 Route: SUBCUTANEOUS Sig: Inject 50 Units subcutaneously w MEALS. Medications Discontinued During This Encounter insulin glargine (TOUJEO SOLOSTAR U-* 05/27/2017 06/29/2017 Class: Med Update Route: SUBCUTANEOUS Sig: Inject 120 Units subcutaneously every morning. Disc: Reason for discontinue is not on file. insulin lispro (HUMALOG KWIKPEN) 100* 15 P* 12 03/03/2017 06/29/2017 Cmt: Please discontinue Soliqua Route: SUBCUTANEOUS Sig: Inject 40 Units subcutaneously w MEALS. Disc: Reason for discontinue is not on file. Encounter Status:Closed by TESHA (PHARMACIST)SAMAN on 06/29/17 SILVIA Observed: 06/01/2017 Status: COMPLETED Source: [place] 8:20 AM [facility] REPOSITORY Office Visit (INTMWS) JAKE BLANKENSHIP ([id number]) 1965 M Date Time Provider Department 06/01/17 8:20 AM LEIDA CISNEROS INTMWS During your visit today, we recorded the following information about you: Pulse Respiration Blood pressure Weight 66/minute 14/minute 130/72 144.7 kg Height 1.702 m LEIDA CISNEROS MD 06/01/2017 10:26 AM Signed Reason for Visit Patient presents with: Established Patient: 4 month follow up-diabetes Jake Blankenship is a 52 year old male who presents here today for Above Complaints.. Health Maintenance COLORECTAL CANCER SCREENING,SEE MODIFIER DILATED RETINAL EXAM DIABETIC FOOT EXAM HPI BP is well controlled on 5 pills at maximum doses. He has learnt to be more compliant. Hba1c is 10.8 from 9.9. Bf is 2 eggs, 2 slices of toast , and sausage mariel. Then drinks a lot of diet pop or water, he drinks 4 to 8 cans of diet pop. Lunch:sometimes he has a bowl of soup, hot dog etc. Dinner: had some tuna noodles. He knows if he cuts down around 100 pounds he will feel a lot better. He does have sleep apnea. ,No problem-specific Assessment ANDamp; Plan notes found for this encounter. PAST MEDICAL HISTORY Diagnosis Date - Diabetes (HCC) - Hypertension - [place] (myocardial infarction) ([facility]) 03-12-09 stent placement - Myocardial infarction ([facility]) 03/16/2014 PAST SURGICAL HISTORY Procedure Laterality Date - CABG (5) VENOUS GRAFTS ANDamp; ARTERIAL GRAFT(S) 03/17 - PAST SURGICAL HISTORY OF ORIF LMF with pins - REMOVAL OF TONSILS,ANDlt;10 Y/O Tonsillectomy FAMILY HISTORY Problem Relation Age of Onset - Cancer Mother Social History Substance Use Topics - Smoking status: Never Smoker - Smokeless tobacco: Former User Quit date: 01/14/2014 - Alcohol use No Past medical history, appointments, medications, allergies reviewed. Pertinent Lab/Diagnostic Studies are reviewed and discussed today Current Outpatient Prescriptions: - insulin glargine (TOUJEO SOLOSTAR U-300 INSULIN) 300 unit/mL (1.5 mL) inpn - metFORMIN (GLUCOPHAGE) 1,000 mg tablet - amLODIPine (NORVASC) 10 mg tablet - atorvastatin (LIPITOR) 40 mg tablet - carvedilol (COREG) 25 mg tablet - hydroCHLOROthiazide (HYDRODIURIL, ESIDRIX) 25 mg tablet - lisinopril (ZESTRIL, PRINIVIL) 40 mg tablet - spironolactone (ALDACTONE) 100 mg tablet - insulin syringe,safetyneedle 1 mL 31 gauge x 5/16ANDquot; syrg - meloxicam (MOBIC) 15 mg tablet - omeprazole (PRILOSEC) 20 mg capsule - insulin lispro (HUMALOG KWIKPEN) 100 unit/mL inpn - EASY TOUCH 31 gauge x 3/16ANDquot; ndle - beclomethasone (QVAR) 40 mcg/actuation inhaler - aspirin, enteric coated (ASPIR-81) 81 mg EC tablet - CLOTRIMAZOLE (LOTRIMIN TOPICAL) Review of Systems CONSTITUTIONAL: No fevers, chills night sweats, unintended weight loss CARDIOVASCULAR: No chest pain, dyspnea, palpitations, orthopnea, PND, ankle edema. PULM: No dyspnea, unexplained cough. GI: No dysphagia/odynophagia, problematic reflux, constipation, diarrhea, changes in stool habits, hematochezia, melena. : No new urinary complaints, including dysuria, gross hematuria or pyuria. NEURO: No new balance problems, peripheral weakness/paresthesias or numbness of concern. Physical Exam BP 130/72 (BP Site: Left Arm, BP Position: Sitting, BP Cuff Size: Large Adult) Pulse 66 Resp 14 Ht 170.2 cm (5' 7ANDquot;) Wt (!) 144.7 kg (319 lb) SpO2 95% BMI 49.96 kg/m2 General appearance: Well appearing, alert, in no acute distress, well nourished. Skin: Skin color, texture, turgor normal, no suspicious rashes or lesions Head: Normocephalic, no masses, lesions, tenderness or abnormalities Eyes: Anicteric sclera. Pupils are equally round and reactive to light. Extraocular movements are intact. Lungs: Lungs clear to auscultation. No wheezing, rhonchi, rales Heart: RRR without murmur, gallop, or rubs. Feet: Shoes and socks removed, No deformities, ulcers, calluses, normal distal pulses and sensitive to 10 gm monofilament ASSESSMENT/PLAN: 1. Morbid obesity (HCC) - ICD9: 278.01, ICD10: E66.01 (primary diagnosis) Going to cut down pop completely if possible. Consult bariatrics. 2. Uncontrolled type 2 diabetes mellitus with insulin therapy (HCC) - ICD9: 250.02, V58.67, ICD10: E11.65, Z79.4 Controlled. - Continue current medications 3. Hyperlipidemia with target LDL less than 70 - ICD9: 272.4, ICD10: E78.5 - good control - Continue current medication. 4. Essential hypertension - ICD9: 401.9, ICD10: I10 - good control - Recommended regular aerobic exercise. - Recommend home blood pressure monitoring, to bring results in on next visit - Goal of BP ANDlt;130/80 5. MELODIE (obstructive sleep apnea) AHI 11 - ICD9: 327.23, ICD10: G47.33 Uses his machines LEIDA GANTA, MD Referring Provider: LEIDA CISNEROS [[id number]] Allergies As of Date: 06/01/2017 Noted Allergy Reaction PRAVACHOL (PRAVASTATIN SODIUM) 08/11/2009 5 - Intolerance Comments: Myalgias/arthralgias. Resolved off med. Date Reviewed: 06/01/2017 Reviewed by: Dominga Stauffer LPN - Fully Assessed Reason for Visit: Established Patient [175] Cmt: 4 month follow up-diabetes Primary Visit Diagnosis:Morbid obesity (HCC) [E66.01] Other Visit Diagnoses:Uncontrolled type 2 diabetes mellitus with insulin therapy (HCC) [E11.65, Z79.4] Hyperlipidemia with target LDL less than 70 [E78.5] Essential hypertension [I10] MELODIE (obstructive sleep apnea) AHI 11 [G47.33] Order(s):[facility] [[id number]] Order #: [id number]: 1 HGB A1C [[id number]] Order #: [id number] FUTURE Prescriptions as of 06/01/2017 Sig: INSULIN GLARGINE (U-300) 300 * Inject 120 Units subcutaneous* METFORMIN 1,000 MG TABLET Take 1 tablet by mouth twice * AMLODIPINE 10 MG TABLET Take 1 tablet by mouth once d* ATORVASTATIN 40 MG TABLET Take 1 tablet by mouth daily * CARVEDILOL 25 MG TABLET Take 1 tablet by mouth twice * HYDROCHLOROTHIAZIDE 25 MG TAB* Take 1 tablet by mouth once d* LISINOPRIL 40 MG TABLET Take 1 tablet by mouth once d* SPIRONOLACTONE 100 MG TABLET Take 1 tablet by mouth once d* INSULIN SYRINGE WITH SAFETY N* Use three times daily with re* MELOXICAM 15 MG TABLET Take 1 tablet by mouth once d* OMEPRAZOLE 20 MG CAPSULE,ANAI* Take 1 capsule by mouth once * INSULIN LISPRO (U-100) 100 UN* Inject 40 Units subcutaneousl* EASY TOUCH 31 GAUGE X 3/16 N* Use with meal-time insulin in* BECLOMETHASONE DIPROPIONATE 4* Inhale 2 Puffs as instructed * ASPIRIN 81 MG TABLET,DELAYED * Take 1 tablet by mouth once d* LOTRIMIN TOPICAL Apply to affected area. Problem List As Of Date 06/01/2017 Noted Resolved Coronary Artery Disease [I25.10] INVALID FOR* s/p Angioplasty with Stent INVALID FOR* Uncontrolled hypertension [I10] INVALID FOR* More... Hyperlipidemia with target LDL less than 70 [E7*INVALID FOR* Diabetes mellitus (HCC) [E11.9] INVALID FOR*10/15/2013 Proteinuria [R80.9] INVALID FOR* More... Uncontrolled type 2 diabetes mellitus with insu*INVALID FOR* Myocardial infarction (HCC) [I21.9] INVALID FOR* Edema [R60.9] INVALID FOR* MELODIE (obstructive sleep apnea) AHI 11 [G47.33] INVALID FOR* Encounter Status:Closed by LEIDA CISNEROS MD on 06/01/17 PROGRESS Observed: 06/01/2017 Status: COMPLETED Source: [place] 8:19 AM [facility] [place] REPOSITORY HNO ID: [id number] Author: Leida Cisneros Service: (none) Author Type: Physician Type: Progress Notes Filed: 06/01/2017 10:26 AM Note Text: Reason for Visit Patient presents with: Established Patient: 4 month follow up-diabetes Jake Blankenship is a 52 year old male who presents here today for Above Complaints.. Health Maintenance COLORECTAL CANCER SCREENING,SEE MODIFIER DILATED RETINAL EXAM DIABETIC FOOT EXAM HPI BP is well controlled on 5 pills at maximum doses. He has learnt to be more compliant. Hba1c is 10.8 from 9.9. Bf is 2 eggs, 2 slices of toast , and sausage mariel. Then drinks a lot of diet pop or water, he drinks 4 to 8 cans of diet pop. Lunch:sometimes he has a bowl of soup, hot dog etc. Dinner: had some tuna noodles. He knows if he cuts down around 100 pounds he will feel a lot better. He does have sleep apnea. ,No problem-specific Assessment AND Plan notes found for this encounter. PAST MEDICAL HISTORY Diagnosis Date - Diabetes (HCC) - Hypertension - [place] (myocardial infarction) (HCC) 03-12-09 stent placement - Myocardial infarction (HCC) 03/16/2014 PAST SURGICAL HISTORY Procedure Laterality Date - CABG (5) VENOUS GRAFTS AND ARTERIAL GRAFT(S) 03/17 - PAST SURGICAL HISTORY OF ORIF LMF with pins - REMOVAL OF TONSILS,<12 Y/O Tonsillectomy FAMILY HISTORY Problem Relation Age of Onset - Cancer Mother Social History Substance Use Topics - Smoking status: Never Smoker - Smokeless tobacco: Former User Quit date: 01/14/2014 - Alcohol use No Past medical history, appointments, medications, allergies reviewed. Pertinent Lab/Diagnostic Studies are reviewed and discussed today Current Outpatient Prescriptions: - insulin glargine (TOUJEO SOLOSTAR U-300 INSULIN) 300 unit/mL (1.5 mL) inpn - metFORMIN (GLUCOPHAGE) 1,000 mg tablet - amLODIPine (NORVASC) 10 mg tablet - atorvastatin (LIPITOR) 40 mg tablet - carvedilol (COREG) 25 mg tablet - hydroCHLOROthiazide (HYDRODIURIL, ESIDRIX) 25 mg tablet - lisinopril (ZESTRIL, PRINIVIL) 40 mg tablet - spironolactone (ALDACTONE) 100 mg tablet - insulin syringe,safetyneedle 1 mL 31 gauge x 5/16 syrg - meloxicam (MOBIC) 15 mg tablet - omeprazole (PRILOSEC) 20 mg capsule - insulin lispro (HUMALOG KWIKPEN) 100 unit/mL inpn - EASY TOUCH 31 gauge x 3/16 ndle - beclomethasone (QVAR) 40 mcg/actuation inhaler - aspirin, enteric coated (ASPIR-81) 81 mg EC tablet - CLOTRIMAZOLE (LOTRIMIN TOPICAL) Review of Systems CONSTITUTIONAL: No fevers, chills night sweats, unintended weight loss CARDIOVASCULAR: No chest pain, dyspnea, palpitations, orthopnea, PND, ankle edema. PULM: No dyspnea, unexplained cough. GI: No dysphagia/odynophagia, problematic reflux, constipation, diarrhea, changes in stool habits, hematochezia, melena. : No new urinary complaints, including dysuria, gross hematuria or pyuria. NEURO: No new balance problems, peripheral weakness/paresthesias or numbness of concern. Physical Exam BP 130/72 (BP Site: Left Arm, BP Position: Sitting, BP Cuff Size: Large Adult) Pulse 66 Resp 14 Ht 170.2 cm (5' 7) Wt (!) 144.7 kg (319 lb) SpO2 95% BMI 49.96 kg/m2 General appearance: Well appearing, alert, in no acute distress, well nourished. Skin: Skin color, texture, turgor normal, no suspicious rashes or lesions Head: Normocephalic, no masses, lesions, tenderness or abnormalities Eyes: Anicteric sclera. Pupils are equally round and reactive to light. Extraocular movements are intact. Lungs: Lungs clear to auscultation. No wheezing, rhonchi, rales Heart: RRR without murmur, gallop, or rubs. Feet: Shoes and socks removed, No deformities, ulcers, calluses, normal distal pulses and sensitive to 10 gm monofilament ASSESSMENT/PLAN: 1. Morbid obesity (HCC) - ICD9: 278.01, ICD10: E66.01 (primary diagnosis) Going to cut down pop completely if possible. Consult bariatrics. 2. Uncontrolled type 2 diabetes mellitus with insulin therapy (HCC) - ICD9: 250.02, V58.67, ICD10: E11.65, Z79.4 Controlled. - Continue current medications 3. Hyperlipidemia with target LDL less than 70 - ICD9: 272.4, ICD10: E78.5 - good control - Continue current medication. 4. Essential hypertension - ICD9: 401.9, ICD10: I10 - good control - Recommended regular aerobic exercise. - Recommend home blood pressure monitoring, to bring results in on next visit - Goal of BP <130/80 5. MELODIE (obstructive sleep apnea) AHI 11 - ICD9: 327.23, ICD10: G47.33 Uses his machines LEIDA CISNEROS MD CBC Collected: 05/30/2017 Status: F Source: [place] 8:30 AM [facility] REPOSITORY TYPE CODE TESTS RESULT OUT OF REFERENCE UNITS RANGE LAB WBC 3.70-11.00 k/uL WBC 7.81 LAB RBC 4.20-6.00 m/uL RBC 4.74 LAB HGB 13.0-17.0 g/dL Low Hemoglobin 12.4 LAB HCT 39.0-51.0 % Hematocrit 39.9 LAB MCV 80.0-100.0 fL MCV 84.2 LAB MCH 26.0-34.0 pG MCH 26.2 LAB MCHC 30.5-36.0 g/dL MCHC 31.1 LAB RDWCV 11.5-15.0 % RDW-CV 13.5 LAB PLTCT 150-400 k/uL Platelet Count 273 LAB MPV 9.0-12.7 fL MPV 10.8 LAB ABSNUC <0.01 k/uL Absolute nRBC <0.01 Performed By: #### CBC #### [facility] [address] [place], [place] [address] BASIC METABOLIC PANL Collected: 05/30/2017 Status: F Source: [place] 8:30 AM [facility] REPOSITORY TYPE CODE TESTS RESULT OUT OF REFERENCE UNITS RANGE LAB GLU 74-99 mg/dL High Glucose 317 Result Comment: The [place] [employer] (ADA) provides guidance for cutoff values for fasting glucose and random glucose. The ADA defines fasting as no caloric intake for at least 8 hours. Fas ting plasma glucose results between 100 to 125 mg/dL indicate increased risk for diabetes (prediabetes). Fasting plasma glucose results greater than or equal to 126 mg/dL meet the criteria for diagnosis of diabetes. In the absence of unequivocal hyperglycemia, results should be confirmed by repeat testing. In a patient with classic symptoms of hyperglycemia or hyperglycemic crisis, random plasma glucose results greater than or equal to 200 mg/dL meet the criteria for diagnosis of diabetes. Reference: Standards of Medical Care in Diabetes 2016, [place] Diabetes Association. Diabetes Care. 2016.39(Suppl 1). LAB BUN 9-24 mg/dL BUN 22 LAB CRET 0.73-1.22 mg/dL Creatinine High 1.48 LAB NA 136-144 mmol/L Low Sodium 134 LAB K 3.7-5.1 mmol/L Potassium 5.1 LAB CL 97-105 mmol/L Chloride 100 LAB CO2 22-30 mmol/L Low CO2 18 LAB AGAP 9-18 mmol/L Anion Gap 16 LAB CA 8.5-10.2 mg/dL Calcium, Total 9.5 LAB GFRAA eGFR- Amer. 60 LAB GFRNAA . eGFR-All Other Races 50 Result Comment: eGFR (Estimated GFR) Units of measure: mL/min/1.73 meters squared eGFR is derived from the reexpressed MDRD Study equation using the following parameters: serum creatinine, age, gender and race. The creatinine assay has been calibrated to be traceable to IDMS. An eGFR <60 mL/min/1.73m2 for >3 months is consistent with chronic kidney disease. Refer to KDOQI guidelines for clinical interpretation. In patients with unstable renal function, e.g. those with acute kidney injury, the eGFR may not accurately reflect actual GFR. Performed By: #### BMP, HBA1C #### [facility] [address] [place], [place] [address] HEMOGLOBIN A1C Collected: 05/30/2017 Status: F Source: [place] 8:30 AM [facility] REPOSITORY TYPE CODE TESTS RESULT OUT OF REFERENCE UNITS RANGE LAB HGBA1C 4.3-5.6 % High Hemoglobin A1c 10.8 LAB HBA0 mg/dL Est. Average Glucose 263 Result Comment: eAG: (Estimated average glucose) is a calculated value from HgbA1c and is insurance service representative of the average blood glucose level in the last 2-3 month period. Performed By: #### BMP, HBA1C #### [facility] [address] [place], [place] [address] PROGRESS Observed: 05/27/2017 Status: COMPLETED Source: [place] 10:30 AM [facility] REPOSITORY HNO ID: [id number] Author: Saman Parkinson (Pharmacist) Service: (none) Author Type: Pharmacist Type: Progress Notes Filed: 05/27/2017 10:50 AM Note Text: Patient consents to pharmacy collaborative practice agreement. REASON FOR CONSULT: DM GOALS: A1c < 8% CONSULTING PROVIDER: Dr. Cisneros Date of Consult: 02/2017 Jake Blankenship is a 52 year old male was last seen in [facility] by PCP, Dr. LEIDA CISNEROS MD on 02/04/17. Patient is presenting today for f/u pharmacotherapy management appointment for DM. At last PharmD visit on 04/11 insulin glargine 100 units/mL was changed to 300 units/mL INTERIM HISTORY: PAP for insulin lispro went through on 04/27, regular was changed to lispro Using meal-time insulin if BG < 140 ? yes Reports FBG 180-260 usually Current DM Medications: Insulin glargine 300 units/mL 60 units BID Insulin lispro 40 units TID meals Metformin 1,000mg BID Current HTN Medications: Lisinopril 40mg once daily HCTZ 25mg once daily Spironolactone 100mg once daily Carvedilol 25mg BID Amlodipine 10mg once daily Preventative Medications: ? On GEENA/ARB: Yes ? On Statin: Yes ? On ASA: Yes ROS: ? Patient denies CP, SOB, PEREZ, blurred vision, dizziness or lightheadedness ? Patient denies symptoms of hypoglycemia (sweating, anxiety, palpitations, hunger, and tremor) ? Patient denies symptoms of hyperglycemia (polyuria, polydipsia, polyphagia) ? Patient denies potential medication adverse effects DIET/EXERCISE/SOCIAL Hx: ? Breakfast: sausage/egg mcmuffin or alarcon/egg ? Lunch: usually out (deli) or half ham sandwich (half piece of wheat bread) ? Dinner: goulaj or mac hamburger and tomato soup ? Snacks: seldom ? Following Na restrictions: no ? Beverages: cup coffee (sugar free sweetener) ? ? Exercise: working ? Tobacco: denies ? Alcohol: denies ? Illicits: denies MEDICATIONS: ? Pill bottles are not present. ? Adherence: denies missed doses (somtimes misses evening Toujeo) ? Pharmacy: [facility] ? Rx coverage: [employer] ? Affordability: no issues ? Diabetes supplies: [employer] ? Organization System: [employer] lids for AM/PM ACTIVE PROBLEM LIST Coronary Artery Disease S/P Angioplasty With Stent Uncontrolled Hypertension Hyperlipidemia With Target Ldl Less Than 70 Proteinuria Uncontrolled Type 2 Diabetes Mellitus With Insulin Therapy (Hcc) Myocardial Infarction Edema MELODIE (obstructive sleep apnea) AHI 11 PAST MEDICAL HISTORY Diagnosis Date - Diabetes (HCC) - Hypertension - [place] (myocardial infarction) 03-12-09 stent placement - Myocardial infarction 03/16/2014 ALLERGIES Allergen Reactions - Pravachol [Pravasta* Intolerance Myalgias/arthralgias. Resolved off med. Current Outpatient Prescriptions: metFORMIN (GLUCOPHAGE) 1,000 mg tablet Take 1 tablet by mouth twice daily. amLODIPine (NORVASC) 10 mg tablet Take 1 tablet by mouth once daily. atorvastatin (LIPITOR) 40 mg tablet Take 1 tablet by mouth daily at bedtime. For cholesterol. carvedilol (COREG) 25 mg tablet Take 1 tablet by mouth twice daily with meals. hydroCHLOROthiazide (HYDRODIURIL, ESIDRIX) 25 mg tablet Take 1 tablet by mouth once daily. lisinopril (ZESTRIL, PRINIVIL) 40 mg tablet Take 1 tablet by mouth once daily. spironolactone (ALDACTONE) 100 mg tablet Take 1 tablet by mouth once daily. insulin regular human (HUMULIN R U-100) 100 unit/mL injection Inject 40 Units subcutaneously three times daily before meals. 30 minutes before meals. insulin syringe,safetyneedle 1 mL 31 gauge x 5/16 syrg Use three times daily with regular insulin meloxicam (MOBIC) 15 mg tablet Take 1 tablet by mouth once daily as needed. Take with food. omeprazole (PRILOSEC) 20 mg capsule Take 1 capsule by mouth once daily. insulin glargine (TOUJEO SOLOSTAR) 300 unit/mL (1.5 mL) inpn Inject 60 Units subcutaneously twice daily. insulin lispro (HUMALOG KWIKPEN) 100 unit/mL inpn Inject 40 Units subcutaneously w MEALS. EASY TOUCH 31 gauge x 3/16 ndle Use with meal-time insulin injections five times daily. beclomethasone (QVAR) 40 mcg/actuation inhaler Inhale 2 Puffs as instructed twice daily. CLOTRIMAZOLE (LOTRIMIN TOPICAL) Apply to affected area. aspirin, enteric coated (ASPIR-81) 81 mg EC tablet Take 1 tablet by mouth once daily. No current facility-administered medications for this visit. Rx meds not listed in EPIC: none OTCs: none Herbals: none GLYCEMIC CONTROL: ? Glucometer present at visit: No ? Hypoglycemia: denies Last 3 Encounter BP Readings: Date: BP: 04/13/2017 131/76 04/11/2017 137/75 02/04/2017 132/76 Wt: 143.3 kg (316 lb) BMI: 49.49 kg/(m2) LABS Lab Results Component Value Date HBA1C 9.9 02/02/2017 HBA1C 9.4 09/07/2016 HBA1C 10.2 06/02/2016 CMP: Glucose 259 02/02/2017 BUN 32 02/02/2017 Creatinine 1.40 02/02/2017 Sodium 130 02/02/2017 Potassium 5.0 02/02/2017 Chloride 98 02/02/2017 CO2 17 02/02/2017 Protein, Total 7.2 02/02/2017 Albumin 3.8 02/02/2017 Calcium 9.6 02/02/2017 Alkaline Phosphatase 73 02/02/2017 Bilirubin, Total 0.3 02/02/2017 AST 32 02/02/2017 ALT 39 02/02/2017 Estimated Creatinine Clearance: 82.8 mL/min (based on Cr of 1.4). Last Lipid Panel Lab Results Component Value Date CHOL 135 02/02/2017 Lab Results Component Value Date HDL 29 02/02/2017 Lab Results Component Value Date LDL 62 02/02/2017 Lab Results Component Value Date TG 219 02/02/2017 Albumin/Creat Ratio (mg/g) Date Value 02/02/2017 1727 (H) PHARMACOTHERAPY ASSESSMENT/PLAN: 1. Uncontrolled type 2 diabetes mellitus with insulin therapy (HCC) - ICD9: 250.02, V58.67, ICD10: E11.65, Z79.4 (primary diagnosis) A1c goal < 8% per Consult (could consider tighter goal of < 7% d/t age), patient is not at goal (9.9% on 02/02/17). Due for repeat. Reported FBGs are not at goal. Improved compliance with prandial insulin. Possibly some noncompliance with evening basal insulin. Discussed taking full dose in the morning instead of splitting up the dose BID. Patient will try that. With high doses of basal insulin, suspect some absorption issues and/or insulin resistance. Continue current doses at this time. Patient has not tolerated dulaglutide in the past, discussed trial of liraglutide. He will think about it and discuss again next PharmD visit. Renal fxn and LFTs WNL. ? CONTINUE insulin glargine 300units/mL 120 units daily (move to [facility]), insulin lispro 40 units TID meals, metformin 1,000mg BID ? Instructed patient to continue monitoring FBGs and PPBGs 2-3x daily ? A1c Tuesday 2. Uncontrolled hypertension - ICD9: 401.9, ICD10: I10 BP goal < 140/90, pt is at goal on current therapy. Renal fxn and K+ WNL. ? CONTINUE Lisinopril 40mg, HCTZ 25mg, Spironolactone 100mg, Amlodipine 10mg once daily, and Carvedilol 25mg BID ? 3. Hyperlipidemia with target LDL less than 70 - ICD9: 272.4, ICD10: E78.5 Pt is on appropriate statin intensity (high intensity d/t clinical ASCVD). LFTs and renal fxn WNL. ? CONTINUE atorvastatin 40mg once daily Health Maintenance issues addressed: DILATED RETINAL EXAM due on 04/26/2017 DIABETIC FOOT EXAM due on 06/06/2017 Patient is scheduled to see PCP 06/01. Patient to return to clinic for PharmD f/u on 06/29. Patient verbalized understanding of instructions. Saman Parkinson, VikasD, BCPS CNPTOUTREACH Observed: 05/17/2017 Status: COMPLETED Source: [place] 12:00 AM CLINIC [facility] REPOSITORY Patient Outreach ([facility]) JAKE BLANKENSHIP ([id number]) 1965 M Date Time Provider Department 05/17/17 TROY CISNEROSRA [facility] During your visit today, we recorded the following information about you: Allergies As of Date: 05/17/2017 Noted Allergy Reaction PRAVACHOL (PRAVASTATIN SODIUM) 08/11/2009 5 - Intolerance Comments: Myalgias/arthralgias. Resolved off med. Date Reviewed: 02/04/2017 Reviewed by: Domniga Stauffer LPN - Fully Assessed Visit Diagnosis:Medication management [Z79.899] Order(s):[facility] [[facility]] Order #: [id number] FUTURE Prescriptions as of 05/17/2017 Sig: METFORMIN 1,000 MG TABLET Take 1 tablet by mouth twice * AMLODIPINE 10 MG TABLET Take 1 tablet by mouth once d* ATORVASTATIN 40 MG TABLET Take 1 tablet by mouth daily * CARVEDILOL 25 MG TABLET Take 1 tablet by mouth twice * HYDROCHLOROTHIAZIDE 25 MG TAB* Take 1 tablet by mouth once d* LISINOPRIL 40 MG TABLET Take 1 tablet by mouth once d* SPIRONOLACTONE 100 MG TABLET Take 1 tablet by mouth once d* INSULIN REGULAR HUMAN 100 UNI* Inject 40 Units subcutaneousl* INSULIN SYRINGE WITH SAFETY N* Use three times daily with re* MELOXICAM 15 MG TABLET Take 1 tablet by mouth once d* OMEPRAZOLE 20 MG CAPSULE,ANAI* Take 1 capsule by mouth once * INSULIN GLARGINE 300 UNIT/ML * Inject 60 Units subcutaneousl* INSULIN LISPRO 100 UNIT/ML BLAKE* Inject 40 Units subcutaneousl* EASY TOUCH 31 GAUGE X /16 N* Use with meal-time insulin in* BECLOMETHASONE DIPROPIONATE 4* Inhale 2 Puffs as instructed * LOTRIMIN TOPICAL Apply to affected area. ASPIRIN 81 MG TABLET,DELAYED * Take 1 tablet by mouth once d* Problem List As Of Date 05/17/2017 Noted Resolved Coronary Artery Disease [I25.10] INVALID FOR* s/p Angioplasty with Stent INVALID FOR* Uncontrolled hypertension [I10] INVALID FOR* More... Hyperlipidemia with target LDL less than 70 [E7*INVALID FOR* Diabetes mellitus (HCC) [E11.9] INVALID FOR*10/15/2013 Proteinuria [R80.9] INVALID FOR* More... Uncontrolled type 2 diabetes mellitus with insu*INVALID FOR* Myocardial infarction (HCC) [I21.9] INVALID FOR* Edema [R60.9] INVALID FOR* MELODIE (obstructive sleep apnea) AHI 11 [G47.33] INVALID FOR* Encounter Status:Closed by Hobby, PRODUSER on 05/22/17 ALLERGIES ALLERGIES DATE TYPE / NAME / CODE REACTION SEVERITY SOURCE CODE 02/28/2018 Drug pravastatin MUSCLE ACHES MO Leo Allergy/41 sodium/[id number] [facility] [id number]( (RXNORM) Hospital [facility]) Repository 08/11/2009 DRUG PRAVASTATIN INTOLERANCE [facility] INGREDI/41 SODIUM [place] [id number]( Repository [facility]) ENCOUNTERS ENCOUNTERS ADMIT/DISCHARGE ACCOUNT ADMITTING ENCOUNTER LOCATION SOURCE NUMBER CLASS 04/27/2018 [id number] [facility] ing:LAB.FUTUR Repository E 04/25/2018 [id number] [facility] ing:LAB Repository 04/20/2018/04/20/[id number] Repository 04/14/2018/04/17/19 [id number] Ambulatory [address] Repository 04/11/2018/04/11/19 [id number] Ambulatory [address] Repository 04/11/2018/04/11/19 [id number] Ambulatory [address] Repository 03/29/2018 [id number] [facility] ing:CT Repository 03/29/2018 [id number] [facility] ing:LAB.FUTUR Repository E 03/13/2018/03/13/[id number] ing:LAB Repository 03/13/2018/03/13/20 [id number] Ambulatory [address] Repository 03/07/2018 [id number] Ambulatory [facility] Hospital ing:LAB.FUTUR Repository E 02/28/2018/02/29/20 [id number] Ambulatory BMSBuilding:B Leo 18 [facility] Repository 02/20/2018/02/21/20 [id number] Ambulatory [address] [place] Repository 02/17/2018/02/21/20 [id number] Ambulatory [address] [place] Repository 02/15/2018 [id number] Ambulatory [facility] Hospital ing:LAB Repository 02/13/2018/02/14/20 [id number] Ambulatory [address] [place] Repository 02/07/2018/02/08/20 [id number] Ambulatory BMSBuilding:B Leo 18 [facility] Repository 02/03/2018/02/07/20 [id number] Ambulatory [address] [place] Repository 02/03/2018/02/04/20 [id number] Ambulatory [address] [place] Repository 01/20/2018/01/21/20 [id number] Ambulatory [address] [place] Repository 01/17/2018/01/18/20 [id number] Ambulatory [address] [place] Repository 01/17/2018/01/18/20 [id number] Ambulatory [address] [place] Repository 01/17/2018/01/19/20 [id number] Ambulatory [address] [place] Repository 01/04/2018 [id number] Ambulatory [facility] Hospital ing:LAB Repository 12/14/2017/12/15/19 [id number] Ambulatory [address] [place] Repository 12/07/2017/12/08/19 [id number] Ambulatory BMSBuilding:B Rosa 18 [facility] Repository 12/02/2017 [id number] [facility] ing:LAB.FUTUR Repository E 11/23/2017/11/25/19 [id number] Ambulatory [address] [place] Repository 11/21/2017 [id number] Ambulatory [facility] Hospital ing:CVS Repository 11/21/2017 [id number] Ambulatory BMSBuilding:Cristel Lee [facility] Repository 11/02/2017/11/03/19 [id number] Ambulatory BMSBuilding:Remi Torres MS.[facility] Repository 11/02/2017/11/03/19 [id number] Ambulatory [address] Repository 11/02/2017/11/04/19 [id number] Ambulatory [address] Repository 11/01/2017/11/02/19 [id number] Ambulatory [address] Repository 11/01/2017/11/02/19 [id number] Ambulatory [address] Repository 10/31/2017 [id number] Ambulatory BMSBuilding:Remi Lee MS.[facility] Repository 10/22/2017 [id number] [facility] ing:LAB Repository 10/18/2017/10/20/19 [id number] Butch Schmitz Inpatient [address] ing:PCURoom: Repository SEA504Wfj: 1 10/18/2017 [id number] Butch Schmitz Ambulatory BMSBuilding:Remi Lee MS.[facility] Repository 10/18/2017 [id number] Butch Schmitz Ambulatory BMSBuilding:Remi Lee MS.[facility] Repository 10/18/2017/10/20/19 [id number] Ambulatory BMSBuilding:Cristel Lee 18 [facility] Repository 10/18/2017/10/20/19 [id number] Ambulatory BMSBuilding:W oRsa 18 [facility] Repository 10/03/2017/10/04/19 [id number] Emergency [address] ing:ED Repository 10/03/2017/10/05/19 [id number] Ambulatory [address] Repository 09/29/2017/09/30/19 [id number] Ambulatory [address] ing:OT Repository 09/16/2017/09/20/19 [id number] Ambulatory [address] Repository 09/14/2017 [id number] Ambulatory [facility] Repository 09/06/2017/09/07/19 [id number] Ambulatory [address] Repository 08/29/2017/09/02/19 [id number] [place] Inpatient Rosa Lee 18 Encounter [facility] ing:PO0Eupu: Repository DT907Gfy: 1 08/29/2017 [id number] [place] Ambulatory BMSBuilding:Remi Lee MS.[facility] Repository 08/29/2017 [id number] [place] Ambulatory BMSBuilding:Remi Lee MS.[facility] Repository 08/29/2017 [id number] [place] Ambulatory BMSBuilding:Remi Lee MS.[facility] Repository 08/29/2017 [id number] [place] Ambulatory BMSBuilding:Remi Lee MS.[facility] Repository 08/23/2017/08/25/19 [id number] Ambulatory [address] Repository 08/05/2017/08/06/19 [id number] Ambulatory [address] Repository 07/02/2017/07/03/19 [id number] Ambulatory [address] Repository 06/29/2017/06/30/19 [id number] Ambulatory [address] Repository 06/01/2017/06/03/19 [id number] Ambulatory [address] Repository 05/30/2017/05/30/19 [id number] Ambulatory [address] Repository 05/27/2017/05/27/19 [id number] Ambulatory [address] Repository PAYERS PAYERS ENCOUNTER GUARANTOR PAYER SUBSCRIBER SOURCE 04/27/2018 JAKE CUEVAS Primary [address]TONIA [address] Insurance:AULTCAREPol PYERSDOB: Community BOX icy Number: [id number] [address] [id number] Repository [place] [id number]: Date:0494-49-09UF [address] [place] [address] ([place]) [address]WP: 04/27/2018 Secondary JAKE Lee Insurance:MEDICARE PYERSDOB: Community PART A BPolic [id number] Hospital Number: Repository [id number] Date:2018-04-27 04/27/2018 Tertiary NOT GIVENUNK Leo Insurance:SELF PAY [facility]: Effective Repository Date:2018-04-27 04/25/2018 JAKE Pruett [id number] Primary ANTONIA C Leo [address] Insurance:AULTCAREPol PYERSDOB: Community BOX icy Number: [id number] [id number] [place]ository [place] [address]Gku: Date:7369-74-32FL [address] [place] [address] () [address]TR: 04/25/2018 Secondary JAKE A Rosa Insurance:MEDICARE PYERSDOB: Community PART A [facility] [id number] Hospital Number: Repository [id number] Date:2018-03-13 04/25/2018 Tertiary NOT GIVENUNK Leo Insurance:SELF PAY [facility] Number: Effective Repository Date:2018-04-03 03/29/2018 JAKE Pruett [id number] Primary ANTONIA C Rosa [address] Insurance:AULTCAREPol PYERSDOB: Community BOX icy Number: [id number] [id number] [place]ository [place] [address]Fxy: Date:0033-66-62HO [address] [place] [address] () [address]YU: 03/29/2018 Secondary JAKE A Leo Insurance:MEDICARE PYERSDOB: Community PART A [facility] [id number] Hospital Number: Repository [id number] Date:2018-02-28 03/29/2018 Tertiary NOT GIVENUNK Leo Insurance:SELF PAY [facility] Number: Effective Repository Date:2018-02-28 03/29/2018 JAKE A [id number] Primary ANTONIA C Rosa [address] Insurance:AULTCAREPol PYERSDOB: Community BOX icy Number: [id number] [id number] Repository [place] [address]Oan: Date:8328-34-39RZ [address] [place] [address] () [address]YN: 03/29/2018 Secondary JAKE A Leo Insurance:MEDICARE PYERSDOB: Community PART A olicy [id number] Hospital Number: Repository [id number] Date:2018-03-29 03/29/2018 Tertiary NOT GIVENUNK Leo Insurance:SELF PAY [facility] Number: Effective Repository Date:2018-03-29 03/13/2018 JAKE A [id number] Primary ANTONIA C Rosa [address] Insurance:[employer]ULTCAREPol PYERSDOB: Community BOX icy Number: [id number] [id number] Repository [place] [address]Bdl: Date:8472-18-40XS [address] [place] [address] () [address]HG: 03/13/2018 Secondary JAKE A Leo Insurance:MEDICARE PYERSDOB: Community PART A [facility] [id number] Hospital Number: Repository [id number] Date:2018-03-13 03/13/2018 Tertiary NOT GIVENUNK Leo Insurance:SELF PAY [facility] Number: Effective Repository Date:2018-03-13 03/07/2018 JAKE A [id number] Primary ANTONIA C Rosa [address] Insurance:[employer]ULTCAREPol PYERSDOB: Community BOX icy Number: [id number], [id number] Repository [place] [address]Ncw: Date:6290-85-11OI [address], [place] () [address]UQ: 03/07/2018 Secondary JAKE A Rosa Insurance:MEDICARE PYERSDOB: Community PART A olic [id number] Hospital Number: Repository [id number] Date:2018-02-28 03/07/2018 Tertiary NOT GIVENUNK Rosa Insurance:SELF PAY [facility] Number: Effective Repository Date:2018-02-28 02/28/2018 JAKE Flynn [id number] Primary ANTONIA C [address] Insurance:AULTCAREPol PYERSDOB: Community BOX icy Number: [id number] [id number] Repository [place] [address]Fdk: Date:9332-75-62FT [address] [place] [address] () [address]LD: 02/28/2018 Secondary JAKE A Leo Insurance:MEDICARE PYERSDOB: Community PART A [facility] [id number] Hospital Number: Repository [id number] Date:2018-02-07 02/28/2018 Tertiary NOT GIVENUNK Rosa Insurance:SELF PAY [facility] Number: Effective Repository Date:2018-02-28 02/15/2018 JAKE A [id number] Primary [address]TONIA C [address] Insurance:AULTCAREPol PYERSDOB: Community BOX icy Number: [id number] [id number] [place]ository [place] [id number]: Date:3392-18-16NM [address] [place] [address] () [address]KU: 02/15/2018 Secondary JAKE A Rosa Insurance:MEDICARE PYERSDOB: Community PART A [facility] [id number] Hospital Number: Repository [id number] Date:2018-02-15 02/15/2018 Tertiary NOT GIVENUNK Leo Insurance:SELF PAY [facility] Number: Effective Repository Date:2018-02-15 02/07/2018 JAKE A [id number] Primary [address]TONIA C [address] Insurance:AULTCAREPol PYERSDOB: Community BOX icy Number: [id number] [id number] [place]ository [place] [id number]: Date:2831-71-42GL [address], [place] () [address]JL: 02/07/2018 Secondary JAKE A Rosa Insurance:MEDICARE PYERSDOB: Community PART A BPolicy [id number] Hospital Number: Repository [id number] Date:2018-02-07 02/07/2018 Tertiary NOT GIVENUNK Rosa Insurance:SELF PAY Community [facility] Number: Effective Repository Date:2018-02-07 01/04/2018 JAEK A [id number] Primary ANTONIA C Rosa [address] Insurance:[employer]ULTCAREPol PYERSDOB: Community BOX icy Number: [id number] [id number] Repository [place] [address]Mpb: Date:4656-77-89PL [address], [place] () [address]NV: 01/04/2018 Secondary JAKE A Leo Insurance:MEDICARE PYERSDOB: Community PART A [facility] [id number] Hospital Number: Repository [id number] Date:2018-01-04 01/04/2018 Tertiary NOT GIVENUNK Rosa Insurance:SELF PAY [facility] Number: Effective Repository Date:2018-01-04 12/07/2017 JAKE A [id number] Primary ANTONIA C [address] Insurance:AULTCAREPol PYERSDOB: Community BOX icy Number: [id number] [id number] Repository [place] [address]Bjn: Date:9035-62-84ZT [address] [place] [address] () [address]NI: 12/07/2017 Secondary JAKE A Leo Insurance:MEDICARE PYERSDOB: Community PART A [facility] [id number] Hospital Number: Repository [id number] Date:2017-12-02 12/07/2017 Tertiary NOT GIVENUNK Leo Insurance:SELF PAY [facility] Number: Effective Repository Date:2017-12-07 12/02/2017 JAKE A [id number] Primary [address]TONIA C [address] Insurance:AULTCAREPol PYERSDOB: Community BOX icy Number: [id number] [id number] [place]ository [place] [address]Ntb: Date:6592-07-09NK [address] [place] [address] () [address]XU: 12/02/2017 Secondary JAKE A Rosa Insurance:MEDICARE PYERSDOB: Community PART A [facility] [id number] Hospital Number: Repository [id number] Date:2017-11-15 12/02/2017 Tertiary NOT GIVENUNK Rosa Insurance:SELF PAY Community [facility] Number: Effective Repository Date:2017-11-15 11/21/2017 JAKE A [id number] Primary JAKE A [address] Insurance:MEDICARE PYERSDOB: Community BOX PART A [facility] [id number], Number: [place]ository [place] [address]Sbe: [id number] Date:2017-11-02 () 11/21/2017 Secondary ANTONIA C Leo Insurance:AULTCAREPol PYERSDOB: Community icy Number: [id number] Hospital [id number] Repository Date:6828-59-36XD [address] [place] [address]GS: 11/21/2017 Tertiary NOT GIVENUNK Rosa Insurance:SELF PAY [facility] Number: Effective Repository Date:2017-11-02 11/21/2017 JAKE A [id number] Primary ANTONIA C [address] Insurance:AULTCAREPol PYERSDOB: Community BOX icy Number: [id number], [id number] Repository [place] [address]Ecx: Date:9988-07-23PJ [address] [place] [address] ) [address]SO: 11/21/2017 Secondary JAKE A Leo Insurance:MEDICARE PYERSDOB: Community PART A [facility] [id number] Hospital Number: Repository [id number] Date:2017-11-02 11/21/2017 Tertiary NOT GIVENUNK Leo Insurance:SELF PAY Community [facility] Number: Effective Repository Date:2017-11-21 11/02/2017 JAKE Pruett [id number] Primary ANTONIA C [address] Insurance:AULTCAREPol PYERSDOB: Community BOX icy Number: [id number] [id number] Repository [place] [address]Daw: Date:8368-44-33QU [address] [place] [address] () [address]DH: 11/02/2017 Secondary JAKE A Rosa Insurance:MEDICARE PYERSDOB: Community PART A [facility] [id number] Hospital Number: Repository [id number] Date:2017-10-19 11/02/2017 Tertiary NOT GIVENUNK Rosa Insurance:SELF PAY [facility] Number: Effective Repository Date:2017-10-19 10/31/2017 JAKE Pruett [id number] Primary ANTONIA C [address] Insurance:[employer]ULTCAREPol PYERSDOB: Community BOX icy Number: [id number] [id number] Repository [place] [address]Rjj: Date:1667-65-75ZX [address] [place] [address] () [address]BB: 10/31/2017 Secondary JAKE A Leo Insurance:MEDICARE PYERSDOB: Community PART A [facility] [id number] Hospital Number: Repository [id number] Date:2017-10-31 10/31/2017 Tertiary NOT GIVENUNK Leo Insurance:SELF PAY [facility] Number: Effective Repository Date:2017-10-31 10/22/2017 JAKE A [id number] Primary ANTONIA C [address] Insurance:[employer]ULTCAREPol PYERSDOB: Community BOX icy Number: [id number] [id number] [place]ository [place] [address]Bsm: Date:0901-51-34XM [address] [place] [address] () [address]ZE: 10/22/2017 Secondary JAKE A Rosa Insurance:MEDICARE PYERSDOB: Community PART A olicy [id number] Hospital Number: Repository [id number] Date:2017-10-22 10/22/2017 Tertiary NOT GIVENUNK Rosa Insurance:SELF PAY [facility] Number: Effective Repository Date:2017-10-22 10/18/2017 JAKE Pruett [id number] Primary ANTONIA C [address] Insurance:[employer]ULTCAREPol PYERSDOB: Community BOX icy Number: [id number] [id number] Repository [place] [address]Rig: Date:1347-59-58WP [address] [place] [address] () [address]LE: 10/18/2017 Secondary JAKE A Rosa Insurance:MEDICARE PYERSDOB: Community PART A [facility] [id number] Hospital Number: Repository [id number] Date:2017-10-18 10/18/2017 Tertiary NOT GIVENUNK Leo Insurance:SELF PAY [facility] Number: Effective Repository Date:2017-10-18 10/18/2017 JAKE Pruett [id number] Primary ANTONIA C [address] Insurance:[employer]ULTCAREPol PYERSDOB: Community BOX icy Number: [id number] [id number] Repository [place] [address]Sns: Date:4524-03-18MB [address] [place] [address] () [address]XV: 10/18/2017 Secondary JAKE A Leo Insurance:MEDICARE PYERSDOB: Community PART A [facility] [id number] Hospital Number: Repository [id number] Date:2017-10-18 10/18/2017 Tertiary NOT GIVENUNK Rosa Insurance:SELF PAY Community [facility] Number: Effective Repository Date:2017-10-18 10/18/2017 JAKE A [id number] Primary ANTONIA C [address] Insurance:[employer]AREPol PYERSDOB: Community BOX icy Number: [id number] [id number] Repository [place] [address]Vby: Date:1604-40-95UP [address] [place] [address] () [address]UV: 10/18/2017 Secondary JAKE A Rosa Insurance:MEDICARE PYERSDOB: Community PART A olic [id number] Hospital Number: Repository [id number] Date:2017-10-18 10/18/2017 Tertiary NOT GIVENUNK Leo Insurance:SELF PAY Community [facility] Number: Effective Repository Date:2017-10-18 10/18/2017 JAKE Pruett [id number] Primary ANTONIA C [address] Insurance:[employer]TCAREPol PYERSDOB: Community BOX icy Number: [id number] [id number] Repository [place] [id number]: Date:4190-21-34GX [address] [place] [address] () [address]OU: 10/18/2017 Secondary JAKE A Leo Insurance:MEDICARE PYERSDOB: Community PART A [facility] [id number] Hospital Number: Repository [id number] Date:2017-10-18 10/18/2017 Tertiary NOT GIVENUNK Leo Insurance:SELF PAY [facility] Number: Effective Repository Date:2017-10-18 10/18/2017 JAKE Pruett [id number] Primary ANTONIA C Rosa [address] Insurance:[employer]AREPol PYERSDOB: Community BOX icy Number: [id number] [address], [id number] Repository [place] [address]Grz: Date:6482-95-99FM [address] [place] [address] () [address]JU: 10/18/2017 Secondary JAKE A Rosa Insurance:MEDICARE PYERSDOB: Community PART A [facility] [id number] Hospital Number: Repository [id number] Date:2017-10-18 10/18/2017 Tertiary NOT GIVENUNK Leo Insurance:SELF PAY [facility] Effective Repository Date:2017-10-18 10/03/2017 JAKE A [id number] Primary ANTONIA C Leo [address] Insurance:AULTCAREPol PYERSDOB: Community BOX icy Number: [id number] [id number] [place]ository [place] [address]Tuh: Date:1066-91-42ZF [address] [place] [address] () [address]ZG: 10/03/2017 Secondary JAKE A Leo Insurance:MEDICARE PYERSDOB: Community PART A [facility] [id number] Hospital Number: Repository [id number] Date:2017-10-03 10/03/2017 Tertiary NOT GIVENUNK Leo Insurance:SELF PAY [facility] Number: Effective Repository Date:2017-10-03 09/29/2017 JAKE Pruett [id number] Primary ANTONIA C Rosa [address] Insurance:AULTCAREPol PYERSDOB: Community BOX icy Number: [id number] [id number] Repository [place] [address]Jkw: Date:5331-32-93AS [address] [place] [address] () [id number]: 09/29/2017 Secondary JAKE A Leo Insurance:MEDICARE PYERSDOB: Community PART A [facility] [id number] Hospital Number: Repository [id number] Date:2017-08-02 09/29/2017 Tertiary NOT GIVENUNK Leo Insurance:SELF PAY [facility] Effective Repository Date:2017-09-23 08/29/2017 JAKE A [id number] Primary ANTONIA C Rosa [address] Insurance:AULTCAREPol PYERSDOB: Community BOX icy Number: [id number] [id number] Repository [place] [address]Tgz: Date:0999-35-00AB [address], [place] () [address]IL: 08/29/2017 Secondary JAKE A Leo Insurance:MEDICARE PYERSDOB: Community PART A BPolicy [id number] Hospital Number: Repository [id number] Date:2017-08-29 08/29/2017 Tertiary NOT GIVENUNK Leo Insurance:SELF PAY [facility] Number: Effective Repository Date:2017-08-29 08/29/2017 JAKE Pruett [id number] Primary ANTONIA C Rosa [address] Insurance:AULTCAREPol PYERSDOB: Community BOX icy Number: [id number] [id number] Repository [place] [address]Ytp: Date:3226-71-48CK [address] [place] [address] () [address]IC: 08/29/2017 Secondary JAKE A Leo Insurance:MEDICARE PYERSDOB: Community PART A [facility] [id number] Hospital Number: Repository [id number] Date:2017-08-29 08/29/2017 Tertiary NOT GIVENUNK Rosa Insurance:SELF PAY [facility] Number: Effective Repository Date:2017-08-29 08/29/2017 JAKE Pruett [id number] Primary ANTONIA C Leo [address] Insurance:AULTCAREPol PYERSDOB: Community BOX icy Number: [id number] [id number] [place]ository [place] [address]Jgh: Date:2670-56-67UA [address] [place] [address] () [id number]: 08/29/2017 Secondary JAKE A Rosa Insurance:MEDICARE PYERSDOB: Community PART A [facility] [id number] Hospital Number: Repository [id number] Date:2017-08-29 08/29/2017 Tertiary NOT GIVENUNK Rosa Insurance:SELF PAY [facility] Number: Effective Repository Date:2017-08-29 08/29/2017 JAKE A [id number] Primary ANTONIA C Leo [address] Insurance:AULTCAREPol PYERSDOB: Community BOX icy Number: [id number] [id number] Repository [place] [address]Tfa: Date:9638-08-70MN [address], [place] () [address]EA: 08/29/2017 Secondary JAKE Pruett Rosa Insurance:MEDICARE PYERSDOB: Community PART A [facility] [id number] Hospital Number: Repository [id number] Date:2017-08-29 08/29/2017 Tertiary NOT GIVENUNK Rosa Insurance:SELF PAY [facility] Number: Effective Repository Date:2017-08-29 08/29/2017 JAKE [id number] Primary ANTONIA C Leo [address] Insurance:AULTCAREPol PYERSDOB: Community BOX icy Number: [id number] [id number] Repository [place] [address]Tdz: Date:3862-24-28NL [address], [place] () [address]GT: 08/29/2017 Secondary JAKE Pruett Leo Insurance:MEDICARE PYERSDOB: Community PART A [facility] [id number] Hospital Number: Repository [id number] Date:2017-08-29 08/29/2017 Tertiary NOT GIVENUNK Leo Insurance:SELF PAY [facility] Number: Effective Repository Date:2017-08-29
== END 2018-04-25 08:42 | disposition home or self-care (01) ==
LOC: LAB 07:42
PROVIDERS: Family Provider Internal Medicine; PCP Internal Medicine; Referring Provider Internal Medicine Nephrology; Visit Provider Internal Medicine Nephrology
DX: N17.9 Acute kidney failure, unspecified (principal)
CPT/HCPCS: 36415; 80069

== ENCOUNTER 2018-06-19 08:45 | Outpatient (RCR) | payer OTHER, MEDICARE, SELFPAY ==
[2018-04-17 13:07] VITALS: BMI 57.2
[2018-06-19 09:37] LABS: Hemoglobin 15.6 g/dl (13.0-16.5); Mean Corp Hgb Conc 34.7 g/gl (32-36); Mean Corpuscular Hgb 30.6 pg (27.0-32.0); Mean Corpuscular Volume 88.2 fL (80-94); Mean Platelet Vol. 10.7 fl (6.2-12.0); Platelet Count 204 K/mm3 (150-450); RBC Distribution Width CV 13.2 % (11.6-14.6); RBC Distribution Width SD 42.4 fl (35.1-43.9); White Blood Count 6.4 K/mm3 (4.4-11.0)
[2018-06-19 09:39] LABS: Scan Indicated on CBC? Y/N NO
[2018-06-19 10:03] LABS: Albumin, Serum 2.8 g/dL (3.2-5.0); BUN 43 mg/dL (7-18); BUN/Creat Ratio 22.8 RATIO (10-20); Calcium,Total 8.4 mg/dL (8.5-10.1); Chloride 102 mmol/L (98-107); Creatinine, Serum 1.89 mg/dL (0.70-1.30); EST Glomerular Filtration Rate 40 mL/min (>60); Est Glom Filt Rate - Afr Amer 48 mL/min (>60); Glucose 214 mg/dL (74-106); Phosphorus 3.3 mg/dL (2.5-4.9); Potassium 3.1 mmol/L (3.5-5.1); Sodium Level 133 mmol/L (136-145)
[2018-06-19 10:09] LABS: PTHIN 201.7 pg/mL (18.4-80.1)
== END 2018-06-19 09:45 | disposition home or self-care (01) ==
LOC: LAB 08:45
PROVIDERS: Family Provider Internal Medicine; PCP Internal Medicine; Referring Provider Internal Medicine Nephrology; Visit Provider Internal Medicine Nephrology
DX: N17.9 Acute kidney failure, unspecified (principal)
CPT/HCPCS: 36415; 80069; 83970; 85027

== ENCOUNTER → 2018-10-16 10:21 | Outpatient (CLI) | payer OTHER, MEDICARE, SELFPAY ==
[2018-09-25 16:32] VITALS: BMI 57.2
--- NOTE | 2018-10-16 10:23 | ECHOCS_ITS ---
Reason For Study: Dyspnea/SOB Procedure This was a 2D Doppler, Color Flow transthoracic echocardiogram. The study was technically difficult. Contrast injection was performed. Exam performed in department. Left Ventricle Normal LV size. The estimated ejection fraction is 50 %. Stage 2 diastolic dysfunction. No regional wall motion abnormalities noted. Right Ventricle Normal RV size. Normal systolic function. Atria The left atrium is moderately enlarged. Normal right atrium. Mitral Valve Mitral valve not well visualized. Tricuspid Valve The tricuspid valve is not well visualized. Aortic Valve The aortic valve is not well visualized. Pulmonic Valve The pulmonic valve is not well visualized. Great Vessels Normal aortic root. The pulmonary artery is normal size. Normal inferior vena cava. Pericardium/Pleural No pericardial effusion. Medication 22 gauge I.V. with prn adaptor inserted into right arm. Diluted definity 3ml given slow IV push to enhance endocardial definition. MMode/2D Measurements & Calculations LVIDd: 5.3 cm IVSd: 1.6 cm Ao root diam: 3.8 cm LVIDs: 4.0 cm LVPWd: 1.4 cm LA dimension: 5.1 cm FS: 24.4 % LAV(MOD-bp): 81.3 ml LA A4 area: 27.3 cm2 LAV(MOD-bp) Indexed: 31.8 ml/m2 LAV(MOD-sp2): 71.9 ml LAV(MOD-sp4): 89.9 ml Time Measurements MV dec time: 0.28 sec Doppler Measurements & Calculations MV E max yaakov: 95.3 cm/sec Lat Peak E' Yaakov: 10.1 cm/sec Med Peak E' Yaakov: 5.9 cm/sec MV A max yaakov: 66.8 cm/sec E/E' lat: 9.4 E/E' med: 16.2 MV E/A: 1.4 MV V2 max: 122.3 cm/sec MV P1/2t max yaakov: 122.3 cm/sec Ao V2 max: 154.2 cm/sec MV max P.0 mmHg MV P1/2t: 120.9 msec Ao max P.5 mmHg MV V2 mean: 59.0 cm/sec MV dec slope: 296.3 cm/sec2 MV mean P.7 mmHg MV V2 VTI: 41.6 cm MVA(P1/2t): 1.8 cm2 LV V1 max: 82.8 cm/sec PA V2 max: 101.1 cm/sec LV V1 max P.7 mmHg Interpretation Summary Normal LV size. The estimated ejection fraction is 50 %. No regional wall motion abnormalities noted. Stage 2 diastolic dysfunction. Contrast injection was performed. Ordering Physician: Quincy Brewster Referring Physician: Betty Farrell Performed By: Krish Huertas RCS
== END ==
PROVIDERS: Family Provider Internal Medicine; PCP Internal Medicine; Referring Provider Nurse Practitioner Family; Visit Provider Nurse Practitioner Family
DX: R06.02 Shortness of breath (principal); R06.00 Dyspnea, unspecified
CPT/HCPCS: 93306; Q9957; A4216; C8929

== ENCOUNTER → 2018-10-20 08:10 | Outpatient (CLI) | payer OTHER, MEDICARE, SELFPAY ==
[2018-09-25 16:32] VITALS: BMI 57.2
[2018-10-20 09:23] LABS: Protein, Urine (Random) 155.2 mg/dL (<11.9); Protein:Creat Ratio 7252 mg/g CRE (0-200)
[2018-10-20 09:36] LABS: Albumin, Serum 2.9 g/dL (3.2-5.0); BUN 46 mg/dL (7-18); BUN/Creat Ratio 23.5 RATIO (10-20); Calcium,Total 9.2 mg/dL (8.5-10.1); Chloride 101 mmol/L (98-107); Creatinine, Serum 1.96 mg/dL (0.70-1.30); EST Glomerular Filtration Rate 38 mL/min (>60); Est Glom Filt Rate - Afr Amer 46 mL/min (>60); Glucose 205 mg/dL (74-106); Magnesium 1.9 mg/dL (1.6-2.6); Phosphorus 4.4 mg/dL (2.5-4.9); Potassium 3.7 mmol/L (3.5-5.1); Sodium Level 135 mmol/L (136-145)
== END ==
LOC: LAB.FUTURE 08:12 → LAB 08:15
PROVIDERS: Family Provider Internal Medicine; PCP Internal Medicine; Referring Provider Internal Medicine Nephrology; Visit Provider Internal Medicine Nephrology
DX: N17.9 Acute kidney failure, unspecified (principal); E11.22 Type 2 diabetes mellitus with diabetic chronic kidney disease; N18.9 Chronic kidney disease, unspecified; E87.6 Hypokalemia
CPT/HCPCS: 36415; 80069; 82570; 83735; 84156

== ENCOUNTER 2018-10-28 11:18 | Emergency (ER) | payer OTHER, MEDICARE, SELFPAY ==
[2018-09-25 16:32] VITALS: BMI 57.2
[2018-10-28 11:19] VITALS: BP 143/75; PULSE 75; RESP 18; TEMP 36.6; O2SAT 96; BMI 54.8
--- NOTE | 2018-10-28 12:04 | ED.DCSUM_ITS ---
History of Present Illness Informant: Patient Location: Right Eye Onset: Yesterday Context: Gradual Onset Timing: Continuous Current Severity: Severe Maximum Severity: Severe Worsened by: nothing Relieved by: nothing Associated Symptoms - Eyes: Drainage, Redness History of injury: No Visual correction: Glasses Narrative: 53-year-old male presents with a stye seen yesterday at urgent care prescribed doxycycline feels like symptoms are worse and is now here for evaluation. No pain, visual changes or loss of vision. No history of injury. He does not wear contact lenses. He denies constitutional symptoms. Prior similar symptoms: No Recent Illness/Hospitalization: No <Niko Esquivel - Last Filed: 10/28/18 12:35> <Bashir Womack - Last Filed: 10/28/18 12:43> Chief Complaint: Eye Problem Past Medical History Prior records reviewed: Yes Past Medical History: - - Diabetes, hypertension, hyperlipidemia, coronary artery disease Surgical History: coronary bypass surgery, - - Patient underwent coronary stent placement in 2008. He underwent coronary revascularization in March 2014, at which time 5 coronary bypass grafts were performed. Patient has a history of right groin wound debridement for MRSA. Smoking Status: Never smoker Alcohol: None, Occasional Drugs: None - Family History Paternal Family History: Family History (Last Reviewed 09/25/18 @ 15:47 by Dominique Hodge) Father Hypertension Family History: Reports: Hypertension Maternal Family History: Family History (Last Reviewed 09/25/18 @ 15:47 by Dominique Hodge) Father Hypertension Family History: Reports: Cancer - brain, Seizures <Niko Esquivel - Last Filed: 10/28/18 12:35> - Family History Paternal Family History: Family History (Last Reviewed 09/25/18 @ 15:47 by Dominique Hodge) Father Hypertension Maternal Family History: Family History (Last Reviewed 09/25/18 @ 15:47 by Dominique Hodge) Father Hypertension <Bashir Womack - Last Filed: 10/28/18 12:43> - Allergies and Home Meds Allergies/Adverse Reactions: Allergies pravastatin sodium [From Pravachol] Adverse Reaction (Intermediate, Verified 10/28/18 11:21) muscle aches ACHY MUSCLES Primary Care Physician: Betty Farrell MD [Primary Care Provider] - Margarito Zaragoza MD [STAFF PHYSICIAN] - Review of Systems All systems negative except as indicated General: Denies: Chills, Fever Eyes: Reports: - - Right eye redness swelling and drainage Skin: Denies: Rash, Abscess <Niko Esquivel - Last Filed: 10/28/18 12:35> Physical Exam Visual Acuity: Uncorrected Eyelid: Erythema right eyelid, Hordeolum right Right Conjunctiva/Sclera: Normal inspection Left Conjunctiva/Sclera: Normal inspection Right Cornea: Normal inspection Left Cornea: Normal inspection Extraocular Motion: Normal exam, No pain, No palsy, No nystagmus Pupils: Normal accomodation, PERRL Anterior chamber: Normal exam Posterior Segment: Normal fundoscopic exam Vital Signs/Narrative: Vital Signs Temp Pulse Resp BP Pulse Ox 10/28/18 11:19 98 F 75 18 143/75 H 96 Inital Vital Signs reviewed: Yes General: Well nourished, Well developed, Obese Head: Normocephalic, Atraumatic ENT: Moist mucous membranes Neck: Supple, Nontender Cardiovascular: Regular rate, Regular rhythm Respiratory: No distress, CTA bilaterally, Chest nontender Abdomen: Soft, Nontender, Nondistended, Normal bowel sounds, No masses Back: Nontender Extremities: Nontender, No edema Skin: Normal color, No rash Neurological: Alert, Oriented x3, Cranial nerves II-XII grossly intact <Niko Esquivel - Last Filed: 10/28/18 12:35> Vital Signs/Narrative: Vital Signs Temp Pulse Resp BP Pulse Ox 10/28/18 11:19 98 F 75 18 143/75 H 96 <Bashir Womack - Last Filed: 10/28/18 12:43> Diagnostic/Tx/Re-eval - Medical Decision Making Patient has a stye right lower eyelid does not have any facial cellulitis his extraocular movements are normal his vision is normal and at this time do not feel he needs to be admitted or have IV antibiotics. Advised continued warm compresses and proper wound care. He will be referred to ophthalmology. He will continue the doxycycline prescribed by the urgent care. He was advised to be seen in the next 1 to 2 days or return to the emergency department. <Niko Esquivel - Last Filed: 10/28/18 12:35> - Medical Decision Making Evaluate this patient with our physician hospital administrative assistant AP. General several day history of swelling to his right lower eyelid. He was treated in urgent care on doxycycline for possible cellulitis. Physical exam is a middle-aged male. He has a stye on his right lower lid. That is actively draining. There is mild redness and swelling to his right lower eyelid. But this is not cellulitis. Is not hot. Is not tender. Pupils are round reactive light. Extra motions are intact. There is no signs of trauma to his right eye. History and exam are consistent with a right eyelid stye. Warm compresses. Follow-up with ophthalmology as needed. Impression: Right eye stye History of diabetes <Bashir Womack - Last Filed: 10/28/18 12:43> Disposition: Home <Niko Esquivel - Last Filed: 10/28/18 12:35> ED Disposition <Niko Esquivel - Last Filed: 10/28/18 12:35> <Bashir Womack - Last Filed: 10/28/18 12:43> - Plan for ED Patient: Disposition: Home or Assisted Living Diagnosis: Hordeolum externum (stye) Instructions: When Your Child Has a Stye Referrals: Betty Farrell MD [Primary Care Provider] - Margarito Zaragoza MD [STAFF PHYSICIAN] -
== END 2018-10-28 12:46 | disposition home or self-care (01) ==
PROVIDERS: Emergency Provider Physician Assistant Medical; Family Provider Internal Medicine; PCP Internal Medicine
DX: H00.012 Hordeolum externum right lower eyelid (principal); I25.10 Atherosclerotic heart disease of native coronary artery without angina pectoris; E11.9 Type 2 diabetes mellitus without complications; I10 Essential (primary) hypertension; E78.5 Hyperlipidemia, unspecified; Z79.82 Long term (current) use of aspirin; Z79.4 Long term (current) use of insulin; Z79.899 Other long term (current) drug therapy; Z95.1 Presence of aortocoronary bypass graft; Z95.5 Presence of coronary angioplasty implant and graft
CPT/HCPCS: 99282

== ENCOUNTER 2018-12-06 14:07 | Inpatient (IN) | payer OTHER, MEDICARE, SELFPAY ==
[2018-12-06] VITALS (9 sets, daily range): BP systolic 99–153; BP diastolic 58–73; PULSE 73–91; RESP 22–33; TEMP 36.7–37.9; O2SAT 93–97; BMI 54.5; BMI 56.0
--- NOTE | 2018-12-06 14:31 | EKG12_ITS ---
Test Reason : N/V Blood Pressure : / mmHG Vent. Rate : 084 BPM Atrial Rate : 084 BPM P-R Int : 150 ms QRS Dur : 102 ms QT Int : 392 ms P-R-T Axes : 032 086 100 degrees QTc Int : 463 ms Normal sinus rhythm Possible Inferior infarct , age undetermined Abnormal ECG Confirmed by SAMANTA LIMA ([id number]), news video editor HOLLAND MALONE ([id number]) on 12/11/2018 2:47:13 PM Referred By: KARL Confirmed By:SAMANTA LIMA
[2018-12-06 14:45] LABS: Absolute Neutrophil Count 13.3 X10^3/uL (2.0-7.7); Basophil# 0.05 X10^3/uL; Basophil% 0.3 % (0-1); Eosinophil# 0.21 X10^3/uL; Eosinophils% 1.4 % (0-5); Hematocrit 40.9 % (40-54); Lymphocyte % 5.8 % (19-41); Mean Corp Hgb Conc 34.2 g/dL (32-36); Mean Corpuscular Hgb 30.3 pg (27.0-32.0); Mean Corpuscular Volume 88.5 fL (80-94); Mean Platelet Vol. 10.5 fl (6.2-12.0); Monocyte# 0.52 X10^3/uL; Monocyte% 3.4 % (0-10); NRBC Flagged by Analyzer 0 % (0-5); Neutrophil # 13.26 X10^3/uL (2.7-7.7); Neutrophil % 85.5 % (47-70); POSITIVE MORPHOLOGY YES; Platelet Count 165 K/mm3 (150-450); RBC Distribution Width CV 13.2 % (11.6-14.6); RBC Distribution Width SD 43.1 fl (35.1-43.9); Red Blood Count 4.62 M/mm3 (4.6-6.2); White Blood Count 15.5 K/mm3 (4.4-11.0)
[2018-12-06] MEDS: Ondansetron 4 MG/2 ML Vial IV (14:46)
[2018-12-06] MEDS: Morphine 4 MG/ML Syringe IV (14:46)
[2018-12-06] MEDS: 0.9% Normal Saline 1,000 ML 150 ML IV ×2 (14:47→19:08)
[2018-12-06 14:48] LABS: Differential Indicated SCAN CRITERIA MET
[2018-12-06 14:54] LABS: International Normalized Ratio 1.5; Partial Thromboplast Time 35.2 Seconds (24.1-36.2); Prothrombin Time (Protime)PT. 17.8 SECONDS (11.7-14.9)
[2018-12-06 14:58] LABS: ALB/GLOB Ratio 0.5 RATIO (0.9-2.4); AST(SGOT) 44 U/L (15-37); Alanine Aminotransfer ALT/SGPT 41 U/L (16-61); Albumin, Serum 2.3 g/dL (3.2-5.0); Alkaline Phosphatase 58 U/L (45-117); Anion Gap 9 (5-15); BUN 43 mg/dL (7-18); BUN/Creat Ratio 16.7 RATIO (10-20); Calcium,Total 8.1 mg/dL (8.5-10.1); Chloride 102 mmol/L (98-107); Creatinine, Serum 2.57 mg/dL (0.70-1.30); EST Glomerular Filtration Rate 28 mL/min (>60); Est Glom Filt Rate - Afr Amer 34 mL/min (>60); Estimated Creatinine Clearance 30.36 ml/min; Globulin 4.8 g/dL (2.2-4.2); Glucose 147 mg/dL (74-106); Potassium 3.5 mmol/L (3.5-5.1); Protein, Total 7.1 g/dL (6.4-8.2); Sodium Level 134 mmol/L (136-145)
[2018-12-06 15:14] LABS: Lactic Acid 2.2 mmol/L (0.4-2.0)
--- NOTE | 2018-12-06 15:19 | ED.DCSUM_ITS ---
History of Present Illness Chief Complaint: Nausea/Vomiting/Diarrhea Detail of Chief Complaint: Left leg cellulitis Informant: Patient Onset: Yesterday Context: Gradual Onset Timing: Continuous Current Severity: Moderate Maximum Severity: Moderate Narrative: Patient reports onset of nausea, vomiting, and diarrhea yesterday. He has had subjective fever but nothing measured. He has chronic left leg lymphedema and gets cellulitis intermittently. He states it is been more red, painful, and swollen. He does have some redness noted streaking up the medial thigh. - Past Medical History (1) Atherosclerosis of coronary artery bypass graft without angina pectoris Status: Chronic Comment: S/P CABG in 03/2014 with LOGAN to distal LAD, reverse SVG to first diagonal and second diagonal, obtuse marginal, and posterior descending artery; (2) Chronic diastolic (congestive) heart failure Status: Chronic (3) Essential (primary) hypertension Status: Chronic (4) Left ventricular hypertrophy Status: Chronic (5) Lymphedema of left leg Status: Chronic (6) Pure hypercholesterolemia Status: Chronic (7) Secondary pulmonary arterial hypertension Status: Chronic (8) H/O coronary artery bypass surgery Status: Resolved Comment: S/P CABG in 03/2014 with LOGAN to distal LAD, reverse SVG to first diagonal and second diagonal, obtuse marginal, and posterior descending artery at [place]; Past Medical History - Allergies and Home Meds Allergies/Adverse Reactions: Allergies pravastatin sodium [From Pravachol] Adverse Reaction (Intermediate, Verified 10/28/18 11:21) muscle aches ACHY MUSCLES Prior records reviewed: Yes Past Medical History: - - Reviewed Surgical History: coronary bypass surgery, - - Patient underwent coronary stent placement in 2008. He underwent coronary revascularization in March 2014, at which time 5 coronary bypass grafts were performed. Patient has a history of right groin wound debridement for MRSA. Lives: Spouse/ Significant Other Smoking Status: Never smoker - Family History Paternal Family History: Family History (Last Reviewed 12/06/18 @ 15:58 by Butch Schmitz DO) Father Hypertension Family History: Reports: Hypertension Maternal Family History: Family History (Last Reviewed 12/06/18 @ 15:58 by Butch Schmitz DO) Father Hypertension Family History: Reports: Cancer - brain, Seizures Review of Systems General: Reports: Fever, Subjective Eyes: Denies: Visual changes - bilaterally ENT: Denies: Bilateral ear pain Cardiovascular: Denies: Chest pain Respiratory: Denies: Dyspnea Gastrointestinal: Reports: Abdominal pain, Nausea, Vomiting, Diarrhea Musculoskeletal: Reports: Swelling, Extremity Pain Skin: Reports: - - Left leg cellulitis Neurological: Denies: Headache Hematologic: Denies: Easy bruising, Easy bleeding Allergy: Denies: Uticaria Physical Exam Vital Signs/Narrative: Vital Signs Temp Pulse Resp BP Pulse Ox 12/06/18 15:13 99.5 F H 83 32 H 117/61 95 12/06/18 15:09 83 30 H 117/61 97 12/06/18 14:09 99.3 F H 91 22 H 153/73 H 96 Inital Vital Signs reviewed: Yes General: Well nourished, Well developed Eyes: EOMI ENT: Moist mucous membranes Neck: Supple Cardiovascular: Regular rate, Regular rhythm Respiratory: No distress, CTA bilaterally Abdomen: Soft, Nontender, Hypoactive bowel sounds Extremities: - - Chronic lymphedema of the left lower leg with erythema and warmth. There is evidence of cellulitis streaking up the medial thigh as well. No open wounds are noted. Skin: - - As above Neurological: Alert, Oriented x3 Psychological: - - Anxious Diagnostic/Tx/Re-eval Laboratory Results 12/06/18 12/06/18 12/06/18 14:30 14:30 14:30 WBC 15.5 H RBC 4.62 Hgb 14.0 Hct 40.9 MCV 88.5 MCH 30.3 MCHC 34.2 RDW Std Deviation 43.1 RDW Coeff of Eva 13.2 Plt Count 165 MPV 10.5 Immature Gran % (Auto) 3.600 H Neut % (Auto) 85.5 H Lymph % (Auto) 5.8 L Archuleta % (Auto) 3.4 Eos % (Auto) 1.4 Baso % (Auto) 0.3 Absolute Neuts (auto) 13.3 H Absolute Lymphs (auto) 0.90 Nucleated RBC % 0 PT 17.8 H INR 1.5 APTT 35.2 Sodium 134 L Potassium 3.5 Chloride 102 Carbon Dioxide 23.0 Anion Gap 9 BUN 43 H Creatinine 2.57 H Estim Creat Clear Calc 30.36 Est GFR (MDRD) Af Amer 34 L Est GFR (MDRD) Non-Af 28 L BUN/Creatinine Ratio 16.7 Glucose 147 H Lactic Acid Calcium 8.1 L Total Bilirubin 0.60 AST 44 H ALT 41 Alkaline Phosphatase 58 Total Protein 7.1 Albumin 2.3 L Globulin 4.8 H Albumin/Globulin Ratio 0.5 L 12/06/18 14:30 WBC RBC Hgb Hct MCV MCH MCHC RDW Std Deviation RDW Coeff of Eva Plt Count MPV Immature Gran % (Auto) Neut % (Auto) Lymph % (Auto) Archuleta % (Auto) Eos % (Auto) Baso % (Auto) Absolute Neuts (auto) Absolute Lymphs (auto) Nucleated RBC % PT INR APTT Sodium Potassium Chloride Carbon Dioxide Anion Gap BUN Creatinine Estim Creat Clear Calc Est GFR (MDRD) Af Amer Est GFR (MDRD) Non-Af BUN/Creatinine Ratio Glucose Lactic Acid 2.2 H Calcium Total Bilirubin AST ALT Alkaline Phosphatase Total Protein Albumin Globulin Albumin/Globulin Ratio - Medical Decision Making Patient was treated with morphine and Zofran for pain and nausea. Laboratory evaluation does confirm signs of sepsis and patient has cellulitis of the left leg. I did review prior admission from last year with similar presentation. He was initially treated with Zosyn and Vanco on that visit and did well. Zosyn and Vanco were given at this time. I spoke with hospitalist and patient will be admitted. ED Disposition - Plan for ED Patient: Disposition: Acute Care Hospital [facility] Diagnosis: Cellulitis, Sepsis
--- NOTE | 2018-12-06 15:42 | NURSING ---
DR LAWRENCE RETURNED CALL
--- NOTE | 2018-12-06 15:47 | NURSING ---
MED SURG CELLULITIS JOPPERI
--- NOTE | 2018-12-06 15:55 | HP.PCM_ITS ---
Problem List (1) Severe sepsis Status: Acute (2) Cellulitis of left lower extremity without foot Status: Acute History of Present Illness Date of Admission: 12/06/18 Chief Complaint: left leg redness The patient is a 53 year old M who has chronic lymphedema in his left lower extremity due to harvesting of veins for previous bypass. Was in his normal state of health up until yesterday where he started noticing redness and some discomfort in his left lower extremity. Symptoms got worse and was similar to prior episodes of cellulitis and patient presented to the emergency room. In the emergency room, patient was noted to be in severe sepsis, with a lactic acid of 2.2, white count 15.5, tachypnea with a respiratory rate of 32. Patient received IV fluids and has been ordered IV Pipracil and tazobactam. [] Past Medical History Past Medical History (Chronic Problems): Chronic Problems (Last Reviewed 09/25/18 @ 15:47 by Dominique Hodge) Chronic diastolic (congestive) heart failure (Chronic) Pure hypercholesterolemia (Chronic) Essential (primary) hypertension (Chronic) Dyspnea (Chronic) Left ventricular hypertrophy (Chronic) Secondary pulmonary arterial hypertension (Chronic) Atherosclerosis of coronary artery bypass graft without angina pectoris (Chronic) S/P CABG in 03/2014 with LOGAN to distal LAD, reverse SVG to first diagonal and second diagonal, obtuse marginal, and posterior descending artery; Lymphedema of left leg (Chronic) Morbid obesity (Chronic) Diabetes mellitus out of control (Chronic) Medical History: Medical History (Last Reviewed 12/06/18 @ 15:57 by Butch Schmitz DO) Chronic diastolic (congestive) heart failure (Chronic) I50.32 Pure hypercholesterolemia (Chronic) E78.00 Essential (primary) hypertension (Chronic) I10 Orthopnea (Acute) R06.01 Dyspnea (Chronic) R06.00 Chest pain (Acute) R07.9 Acute diastolic (congestive) heart failure (Acute) I50.31 Left ventricular hypertrophy (Chronic) I51.7 Secondary pulmonary arterial hypertension (Chronic) I27.21 Atherosclerosis of coronary artery bypass graft without angina pectoris (Chronic) I25.810 S/P CABG in 03/2014 with LOGAN to distal LAD, reverse SVG to first diagonal and second diagonal, obtuse marginal, and posterior descending artery; Lymphedema of left leg (Chronic) I89.0 Morbid obesity (Chronic) E66.01 Diabetes mellitus out of control (Chronic) E11.65 Anemia D64.9 CKD (chronic kidney disease) stage 2, GFR 60-89 ml/min N18.2 GERD (gastroesophageal reflux disease) K21.9 Morbid obesity E66.01 MELODIE (obstructive sleep apnea) G47.33 Old myocardial infarction I25.2 Prostatism N40.0 Type 2 diabetes mellitus E11.9 History of MRSA infection Z86.14 Right groin debridement Left leg cellulitis (Inactive) L03.116 Allergies pravastatin sodium [From Pravachol] Adverse Reaction (Intermediate, Verified 10/28/18 11:21) muscle aches ACHY MUSCLES Home Medications: Ambulatory Orders Medication Instructions Recorded Aspirin [Aspirin, Baby] 81 mg PO DAILY@0800 10/16/15 Atorvastatin Calcium [Lipitor] 40 mg PO QHS 10/16/15 Carvedilol [Coreg (Beta Kody)] 25 mg PO BID 08/29/17 Omeprazole [Prilosec] 20 mg PO DAILY 08/29/17 amlodipine 5 mg tablet 10 mg PO QDAY tab 02/07/18 magnesium 400 mg (as magnesium 400 mg PO DAILY 09/25/18 oxide) capsule Bupropion HCl [Bupropion Xl] 150 mg PO DAILY 12/06/18 Ferrous Sulfate 325 mg PO BIDCM 12/06/18 Furosemide [Lasix] 80 mg PO BID 12/06/18 Insulin Glargine [Lantus SoloStar 80 units SQ BID 12/06/18 Pen] Insulin Regular, Human [Novolin R] 50 units SQ TIDCM 12/06/18 Losartan Potassium 100 mg PO DAILY 12/06/18 Metolazone 2.5 mg PO MOWEFR 12/06/18 Potassium Chloride [K-Dur] 20 meq PO BID 12/06/18 Surgical History: Surgical History (Last Reviewed 12/06/18 @ 15:57 by Butch Schmitz DO) H/O coronary artery bypass surgery (Resolved) Onset Date: ~03/2014 Z95.1 S/P CABG in 03/2014 with LOGAN to distal LAD, reverse SVG to first diagonal and second diagonal, obtuse marginal, and posterior descending artery at [place]; History of coronary artery stent placement Z95.5 PCI-Syent -[id number] History of incision and drainage Z98.890 right groin, MRSA History of open reduction and internal fixation (ORIF) procedure Z98.890 History of tonsillectomy Z90.89 Surgical History: coronary bypass surgery, - - Patient underwent coronary stent placement in 2008. He underwent coronary revascularization in March 2014, at which time 5 coronary bypass grafts were performed. Patient has a history of right groin wound debridement for MRSA. Psychiatric History: No pertinent psych hx Lives: Spouse/ Significant Other Smoking Status: Never smoker Tobacco Use: Non-smoker Alcohol: None - *Family History Paternal Family History: Family History (Last Reviewed 12/06/18 @ 15:58 by Butch Schmitz DO) Father Hypertension History Items: Hypertension Maternal Family History: Family History (Last Reviewed 12/06/18 @ 15:58 by Butch Schmitz DO) Father Hypertension History Items: Cancer - brain, Seizures Review of Systems Constitutional: Reports: Chills. Denies: Anorexia, Fever Eyes: Denies: Blurred vision, Double vision HEENT: Denies: Head Aches, Sinus Congestion, Sinus Drainage Cardiovascular: Reports: Edema - Chronic and left lower extremity. Denies: Chest Pain, Palpitations Respiratory: Denies: Cough, Shortness of breath at rest, Sputum production Gastrointestinal: Reports: Nausea. Denies: Abdominal Pain, Vomiting Genitourinary: Denies: Dysuria Musculoskeletal: Reports: Leg Pain. Denies: Arm Pain Skin: Denies: Dryness, Jaundice Neurological: Reports: - - Paresthesias in his fingers when his blood sugar does get low. Denies: Focal weakness, Numbness, Tingling Psychiatric: Denies: Anxiety, Depression Hematologic/ Lymphatic: Denies: Easy Bruising, Easy Bleeding, Hx of blood clot Comment: A 10 point review of systems were negative except as mentioned in the history of present illness and the other review of systems. VTE Information - Inpt Only VTE Present on Admission: No VTE Mechan Device Prophylaxis: None VTE Pharm Prophylaxis ordered?: Yes Patient Problems: Active and Suspected Problems (Last Reviewed 09/25/18 @ 15:47 by Dominique Hodge) Severe sepsis (Acute) Cellulitis of left lower extremity without foot (Acute) - Physical Exam General: Alert, Cooperative, No apparent distress, Well developed, Well nourished HEENT: Atraumatic, Normocephalic Oral: Moist Mucosa, Dry Mucosa Neck: No Nodes, Thyroid Normal Size and Texture Lungs: Clear to auscultation, Normal air movement, No rhonchi, No wheeze, No rales Cardiovascular: Regular rate, Regular Rhythm, Normal S1, Normal S2, No murmurs Abdomen: Bowel Sounds Present, Soft, Non Tender, Non-Distended, Obese Extremities: No Calf Tenderness, - - Lymphedema in the left lower extremity no weeping wounds. Skin: - - Macular rash that is confluence around the distal left lower extremity around his calf and extending medially up his thigh. No purulent lesions are identified. Musculoskeletal: No Tenderness to Palpation of Joints or Extremities Neurological: Sensory exam intact to light touch and pain, - - No clonus Psych/Mental Status: Normal Affect, Appropriate Vital Signs Temp Pulse Resp BP Pulse Ox 37.5 C H 83 32 H 117/61 95 12/06/18 15:13 12/06/18 15:13 12/06/18 15:13 12/06/18 15:13 12/06/18 15:13 Oxygen Delivery Method Room Air Weight: 157.85 kg Body Mass Index (BMI) 54.5 Laboratory Tests Past 24 Hrs 12/06/18 12/06/18 12/06/18 14:30 14:30 14:30 WBC 15.5 H RBC 4.62 Hgb 14.0 Hct 40.9 MCV 88.5 MCH 30.3 MCHC 34.2 RDW Std Deviation 43.1 RDW Coeff of Eva 13.2 Plt Count 165 MPV 10.5 Immature Gran % (Auto) 3.600 H Neut % (Auto) 85.5 H Lymph % (Auto) 5.8 L [place] % (Auto) 3.4 Eos % (Auto) 1.4 Baso % (Auto) 0.3 Absolute Neuts (auto) 13.3 H Absolute Lymphs (auto) 0.90 Nucleated RBC % 0 PT 17.8 H INR 1.5 APTT 35.2 Sodium 134 L Potassium 3.5 Chloride 102 Carbon Dioxide 23.0 Anion Gap 9 BUN 43 H Creatinine 2.57 H Estim Creat Clear Calc 30.36 Est GFR (MDRD) Af Amer 34 L Est GFR (MDRD) Non-Af 28 L BUN/Creatinine Ratio 16.7 Glucose 147 H Lactic Acid Calcium 8.1 L Total Bilirubin 0.60 AST 44 H ALT 41 Alkaline Phosphatase 58 Total Protein 7.1 Albumin 2.3 L Globulin 4.8 H Albumin/Globulin Ratio 0.5 L 12/06/18 14:30 WBC RBC Hgb Hct MCV MCH MCHC RDW Std Deviation RDW Coeff of Eva Plt Count MPV Immature Gran % (Auto) Neut % (Auto) Lymph % (Auto) [place] % (Auto) Eos % (Auto) Baso % (Auto) Absolute Neuts (auto) Absolute Lymphs (auto) Nucleated RBC % PT INR APTT Sodium Potassium Chloride Carbon Dioxide Anion Gap BUN Creatinine Estim Creat Clear Calc Est GFR (MDRD) Af Amer Est GFR (MDRD) Non-Af BUN/Creatinine Ratio Glucose Lactic Acid 2.2 H Calcium Total Bilirubin AST ALT Alkaline Phosphatase Total Protein Albumin Globulin Albumin/Globulin Ratio Assessment/Plan All Active Problems (Last Reviewed 09/25/18 @ 15:47 by Dominique Hodge) Severe sepsis (Acute) Cellulitis of left lower extremity without foot (Acute) Orthopnea (Acute) Chest pain (Acute) Acute diastolic (congestive) heart failure (Acute) H/O coronary artery bypass surgery (Resolved ~03/2014) GERD (gastroesophageal reflux disease) (Resolved) Severe sepsis (Resolved) 1. Severe sepsis * Secondary to left lower extremity cellulitis * Lactic acid is 2.3, patient with a leukocytosis of 15,500 and a respiratory rate of 32 * Time of diagnosis is 1430 * Pipracil and tazobactam and vancomycin have been ordered in the emergency room * We will give the patient some additional IV fluids and I feel the patient will be able to tolerate that he is he is not in acute exacerbation of CHF at this time 2. Left lower extremity cellulitis * Complicated by the patient's underlying lymphedema due to previous venous harvesting CABG in the past * Will continue with cefazolin and vancomycin on the floor * Pending on the patient's clinical response patient would likely be de- escalated to cefazolin or even cephalexin pending his clinical response. * Previously, patient has been discharged with cephalexin 3. Chronic kidney disease stage IV * Monitor * Creatinine higher than his baseline which is around 2, currently 2.57 though he has been at this range previously * Consider nephrology consultation if creatinine does get worse 4. Heart failure with preserved ejection fraction * EF of 50% from echocardiogram on October 16, 2018 * We will continue with carvedilol, furosemide, metolazone and losartan 5. Diabetes mellitus type 2 * Patient does have associated neuropathy and likely chronic kidney disease associated with his diabetes * Continue with insulin glargine * Sliding scale insulin 6. VTE prophylaxis: Low molecular weight heparin. Patient moderate risk. 7. Advanced care planning: Confirmed with the patient that he wishes to be full CODE STATUS in event of cardiac arrest. Code Visit Inpatient E&M: 93341 Init Hosp L3
--- NOTE | 2018-12-06 16:20 | CASEMGMT ---
RN CM Assessment Introduced role of RN CM to patient and his [place] at bedside.? Patient is alert, oriented and able?to participate in RN CM Assessment. ?Care providers, pharmacy, and demographics verified. Presentation: N/V/D started yesterday, Chronic Lt leg lymphedema and gets Cellulitis intermittently-has been more red, painful, and swollen. Admit Dx: Cellulitis Re-Admit: No Barriers/Issues: None PCP: Betty Farrell Specialists: Cardio- Dr Sanchez, Nephro- Dr Raymundo Preferred Pharmacy: [facility] Insurance: [employer], [facility] A[facility] Rx Benefit:?Yes through [employer] LNOK: [place] LW/HPOA: None, declines offered information/services this admit Living Arrangements:? Lives with and son in a SS home, 2 steps to enter ADL?s: Independent with ambulation and ADL's. Does use a cane as needed. Transportation: Patient drives, will transport upon DC DME: Cane, Cpap-does not use, Glucometer- states that is the freestyle one attached to his arm for continuous reading. HHC: Past- cannot recall Agency SNF: None Goal: Home, does not think will have any needs. Denies concerns, issues or questions with DC planning. States has had to have IV abx in past after hospital DC and drove to the center for infusions. States that if IV abx is needed, prefers to drive to the infusion center. Aware CM remains available for any emerging needs. DC PLAN: Home with no anticipated needs identified at this time. Gordy Sr RNCM
[2018-12-06 17:50] LABS: Bedside Glucose 116 mg/dL (70-110)
[2018-12-06 18:10] LABS: Mucous, Urine 0 SEEN /hpf (<or=2+)
[2018-12-06 18:12] LABS: Color, Urine Yellow (Yellow); Glucose, Dipstick Normal (Normal); Ketone-Dipstick Negative (Negative); Leukocyte Esterase-Dipstick Negative /ul (Negative); Nitrite-Dipstick Negative (Negative); Occult Blood-Urine 250 /ul (Negative); Protein-Dipstick 500 mg/dl (Negative); Specific Gravity, Urine 1.015 (1.002-1.030); Urine Bilirubin Dipstick Negative (Negative); Urine Clarity Cloudy (Clear); Urine Urobilinogen Normal (Normal)
[2018-12-06] MEDS: Ferrous Sulfate 325 MG Tablet PO (18:14)
[2018-12-06] MEDS: oxyCODONE 5 MG Tablet PO (18:14)
[2018-12-06] MEDS: Acetaminophen 325 MG Tablet 650 MG PO (18:14)
[2018-12-06] MEDS: Furosemide 80 MG Tablet PO (18:14)
[2018-12-06 18:19] LABS: Bacteria 3+ /hpf (None Seen); Red Blood Cells-Urine 0-5 SEEN /hpf (0-5); Squamous Epithelial Cells - UA 0-5 SEEN /hpf (0-5); White Blood Cells 0-5 SEEN /hpf (0-5)
[2018-12-06 18:20] LABS: Amorphous Sediment 1+
[2018-12-06 18:38] LABS: Reflex Lactate? Y
[2018-12-06] MEDS: Cefazolin 1 GM/50 ML BAG IV (19:08)
--- NOTE | 2018-12-06 19:21 | PCM.RX.CS ---
Consult Pharmacy has been consulted to manage selected antiobiotic: Vancomycin Type of Consult: New start Suspected Infection: Skin/Soft tissue Prior Doses of Antibiotics Received/Current Regimen: VANCOMYCIN 2000MG IV X1 IN ED 12/06/18 @1640 Labs: Sodium 134 mmol/L (136-145) L 12/06/18 14:30 Potassium 3.5 mmol/L (3.5-5.1) 12/06/18 14:30 Chloride 102 mmol/L (98-107) 12/06/18 14:30 Carbon Dioxide 23.0 mmol/L (21.0-32.0) 12/06/18 14:30 9 (5-15) 12/06/18 14:30 BUN 43 mg/dL (7-18) H 12/06/18 14:30 2.57 mg/dL (0.70-1.30) H 12/06/18 14:30 Est GFR (MDRD) Af Amer 34 mL/min (>60) L 12/06/18 14:30 Est GFR (MDRD) Non-Af 28 mL/min (>60) L 12/06/18 14:30 16.7 RATIO (10-20) 12/06/18 14:30 Glucose 147 mg/dL (74-106) H 12/06/18 14:30 Weight used for dosin kg Estimated Creatinine Clearance: 48 ml/min Goal Trough: 15-20 mcg/mL Pharmacy Plan for Drug Dosing: PLAN/RECOMMENDATIONS 1. Vancomycin 1000mg IV Q12hrs to start 12/07/18 @0500 2. Trough prior to 4th total dose 12/08/18 @0430 3.Pharmacy Service will continue to monitor and adjust dosing as required.
[2018-12-06 19:30] LABS: Lactic Acid 1.6 mmol/L (0.4-2.0)
[2018-12-06] MEDS: Carvedilol 25 MG Tablet PO (22:08)
[2018-12-06] MEDS: Atorvastatin Calcium 40 MG Tablet PO (22:08)
[2018-12-06 22:15] LABS: Bedside Glucose 122 mg/dL (70-110)
[2018-12-07 02:30] VITALS: BP 128/66; PULSE 79; RESP 20; TEMP 37.6; O2SAT 94
[2018-12-07] MEDS: Vancomycin IV 1,000 MG/200 ML BAG 200 MG IV ×2 (04:37→17:19)
[2018-12-07] MEDS: 0.9% NaCl IVPB Med Flush (250 mL) 15 ML IV (05:37)
[2018-12-07 05:48] LABS: Absolute Neutrophil Count 12.4 X10^3/uL (2.0-7.7); Basophil# 0.05 X10^3/uL; Basophil% 0.3 % (0-1); Eosinophil# 0.18 X10^3/uL; Eosinophils% 1.2 % (0-5); Hematocrit 38.4 % (40-54); Hemoglobin 12.8 g/dL (13.0-16.5); Lymphocyte % 6.1 % (19-41); Mean Corp Hgb Conc 33.3 g/dL (32-36); Mean Corpuscular Volume 90.1 fL (80-94); Monocyte# 0.47 X10^3/uL; Monocyte% 3.2 % (0-10); NRBC Flagged by Analyzer 0 % (0-5); Neutrophil # 12.44 X10^3/uL (2.7-7.7); Neutrophil % 84.5 % (47-70); POSITIVE MORPHOLOGY YES; Platelet Count 148 K/mm3 (150-450); RBC Distribution Width CV 13.7 % (11.6-14.6); RBC Distribution Width SD 45.4 fl (35.1-43.9); Red Blood Count 4.26 M/mm3 (4.6-6.2); White Blood Count 14.7 K/mm3 (4.4-11.0)
[2018-12-07 06:00] LABS: Differential Indicated SCAN CRITERIA MET
[2018-12-07 06:22] LABS: Differential Comment SCANNED
[2018-12-07] MEDS: Cefazolin 1 GM/50 ML BAG IV ×3 (06:27→22:20)
[2018-12-07 06:32] LABS: Anion Gap 10 (5-15); BUN 51 mg/dL (7-18); BUN/Creat Ratio 17.3 RATIO (10-20); Calcium,Total 7.5 mg/dL (8.5-10.1); Chloride 104 mmol/L (98-107); Creatinine, Serum 2.95 mg/dL (0.70-1.30); EST Glomerular Filtration Rate 24 mL/min (>60); Est Glom Filt Rate - Afr Amer 29 mL/min (>60); Estimated Creatinine Clearance 26.45 ml/min; Glucose 122 mg/dL (74-106); Potassium 3.5 mmol/L (3.5-5.1); Sodium Level 137 mmol/L (136-145)
[2018-12-07 08:55] VITALS: BP 147/70; PULSE 82; RESP 18; TEMP 37.9; O2SAT 94
[2018-12-07] MEDS: 0.9% NaCl Peripheral Flush Adult/Peds IV ×2 (09:05→17:21)
[2018-12-07] MEDS: Carvedilol 25 MG Tablet PO ×2 (09:06→22:19)
[2018-12-07] MEDS: Ferrous Sulfate 325 MG Tablet PO ×2 (09:06→17:25)
[2018-12-07] MEDS: Aspirin 81 MG TAB.CHEW PO (09:06)
[2018-12-07] MEDS: buPROPion (XL) 150 MG TABLET.XL PO (09:07)
[2018-12-07] MEDS: Magnesium Oxide 400 MG Tablet PO (09:07)
[2018-12-07] MEDS: amLODIPine 10 MG Tablet PO (09:07)
[2018-12-07] MEDS: Pantoprazole Sodium 20 MG Tablet PO (09:07)
[2018-12-07 09:30] LABS: Bedside Glucose 137 mg/dL (70-110)
[2018-12-07] MEDS: Enoxaparin 40 MG/0.4 ML Syringe SC ×2 (10:09→22:19)
[2018-12-07] MEDS: Acetaminophen 325 MG Tablet 650 MG PO ×2 (12:50→18:16)
[2018-12-07 12:55] LABS: Bedside Glucose 135 mg/dL (70-110)
[2018-12-07 14:40] VITALS: BP 122/61; PULSE 73; RESP 18; TEMP 37.4; O2SAT 94
--- NOTE | 2018-12-07 15:29 | CHAPLAIN ---
Type of Pastoral Visit _x__ Initial Visit ___ Follow-up Visit ___ On-call Visit ___ General Patient Visit ___ Spiritual Assessment ___ Family Conference ___ Bereavement ___ Rapid Response ___ Code Blue ___ Other (describe below) Pastoral Care Referral From _x__ Patient ___ Family ___ Nurse ___ Physician ___ Angiographer ___ Assistant Portfolio Manager ___ Other (describe below) Sacrament/Intervention _x__ Active listening ___ Anointing ___ Uatsdin ___ Bereavement ___ Communion ___ Renu exploration ___ ___ Life review ___ Prayer ___ Reconciliation ___ Sacrament of Sick _x__ Supportive presence ___ Wedding ___ Other (describe below) Pastoral Comments
--- NOTE | 2018-12-07 15:55 | PCM.PN.HOSP ---
Patient Problems: Active and Suspected Problems (Last Reviewed 12/06/18 @ 15:57 by Butch Schmitz DO) Severe sepsis (Acute) Cellulitis of left lower extremity without foot (Acute) Cellulitis (Acute) Sepsis (Acute) Subjective: Patient was seen and examined. He feels somehow better than when he came in. He has been having low grade fevers, Tmax 100.3F. Denies any dizziness or palpitations. Objective: Physical Exam General: Alert, Cooperative, No apparent distress, Well developed, Well nourished, morbidly obese HEENT: Atraumatic, Normocephalic Oral: Moist Mucosa, Dry Mucosa Neck: No Nodes, Thyroid Normal Size and Texture Lungs: Clear to auscultation, Normal air movement, No rhonchi, No wheeze, No rales Cardiovascular: Regular rate, Regular Rhythm, Normal S1, Normal S2, No murmurs Abdomen: Bowel Sounds Present, Soft, Non Tender, Non-Distended, Obese Extremities: Left calfTenderness, - - Lymphedema in the left lower extremity no weeping wounds. Skin: - -Left lower leg is swollen and erythematous, warm to touch, fluctuance seen over the posterior leg,?subcutaneous abscess Musculoskeletal: No Tenderness to Palpation of Joints or Extremities Neurological: Sensory exam intact to light touch and pain, - - No clonus Psych/Mental Status: Normal Affect, Appropriate Vitals/I&O's: Vital Signs Temp Pulse Resp BP Pulse Ox 100.2 F H 82 18 147/70 H 94 12/07/18 08:55 12/07/18 08:55 12/07/18 08:55 12/07/18 08:55 12/07/18 08:55 Oxygen Delivery Method Room Air Weight: 162.3 kg Body Mass Index (BMI) 56.0 Intake and Output for Last 24 Hours 12/05/18 12/06/18 12/07/18 23:59 23:59 23:59 Intake Total 1012.5 / 1012.5 2480.75 / 2480.75 Output Total 400 / 400 Balance 1012.5 / 1012.5 2080.75 / 2080.75 Laboratory Results 12/06/18 17:38: POC Glucose 116 H 12/06/18 18:00: Urine Color Yellow, Urine Clarity Cloudy, Urine pH 5.0, Ur Specific [place] 1.015, Urine Protein 500 H, Urine Glucose (UA) Normal, Urine Ketones Negative, Urine Occult Blood 250 H, Urine Nitrite Negative, Urine Bilirubin Negative, Urine Urobilinogen Normal, Ur Leukocyte Esterase Negative, Urine RBC 0-5 SEEN, Urine WBC 0-5 SEEN, Ur Squamous Epith Cells 0-5 SEEN, Amorphous Sediment 1+, Urine Bacteria 3+, Urine Mucus 0 SEEN 12/06/18 18:50: Lactic Acid 1.6 12/06/18 22:00: POC Glucose 122 H 12/07/18 05:05: WBC 14.7 H, RBC 4.26 L, Hgb 12.8 L, Hct 38.4 L, MCV 90.1, MCH 30.0, MCHC 33.3, RDW Std Deviation 45.4 H, RDW Coeff of Eva 13.7, Plt Count 148 L, MPV 11.0, Immature Gran % (Auto) 4.700 H, Neut % (Auto) 84.5 H, Lymph % (Auto) 6.1 L, [place] % (Auto) 3.2, Eos % (Auto) 1.2, Baso % (Auto) 0.3, Absolute Neuts (auto) 12.4 H, Absolute Lymphs (auto) 0.90, Nucleated RBC % 0, Differential Comment SCANNED 12/07/18 05:05: Sodium 137, Potassium 3.5, Chloride 104, Carbon Dioxide 23.0, Anion Gap 10, BUN 51 H, Creatinine 2.95 H, Estim Creat Clear Calc 26.45, Est GFR (MDRD) Af Amer 29 L, Est GFR (MDRD) Non-Af 24 L, BUN/Creatinine Ratio 17.3, Glucose 122 H, Calcium 7.5 L 12/07/18 09:03: POC Glucose 137 H 12/07/18 12:47: POC Glucose 135 H Current Medications Acetaminophen (Tylenol) 650 mg PO Q6H PRN PRN PRN Reason: Mild Pain (1-3)/Temp > 100.7 F Last Admin: 12/07/18 12:50 Dose: 650 mg Documented by: Albuterol Sulfate (Ventolin Aerosols) 2.5 mg INHALATION Q2H PRN PRN PRN Reason: Shortness of Breath/Wheezing Amlodipine Besylate (Norvasc) 10 mg PO DAILY JOANA Last Admin: 12/07/18 09:07 Dose: 10 mg Documented by: Aspirin (Aspirin, Baby) 81 mg PO DAILY@0800 [facility] [place] Last Admin: 12/07/18 09:06 Dose: 81 mg Documented by: Atorvastatin Calcium (Lipitor) 40 mg PO QHS [facility] Last Admin: 12/06/18 22:08 Dose: 40 mg Documented by: Bupropion HCl (Wellbutrin Xl) 150 mg PO DAILY [facility] Last Admin: 12/07/18 09:07 Dose: 150 mg Documented by: Carvedilol (Coreg) 25 mg PO BID [facility] Last Admin: 12/07/18 09:06 Dose: 25 mg Documented by: Dextrose (D50w Syringe) 0 gm IV X1 PRN; Protocol PRN Reason: Hypoglycemia Enoxaparin Sodium (Lovenox) 40 mg SC DAILY@1000 [facility] Last Admin: 12/07/18 10:09 Dose: 40 mg Documented by: Ferrous Sulfate (Ferrous Sulfate) 325 mg PO BIDCM [facility] Last Admin: 12/07/18 09:06 Dose: 325 mg Documented by: Glucagon () 1 mg IM .X1 PRN PRN Reason: Hypoglycemia Cefazolin Sodium () 1 gm in 50 mls @ 150 mls/hr IV Q8 [facility] [place] Last Infusion: 12/07/18 15:00 Dose: Infused Documented by: Vancomycin IV Pharmacy to Dose (1 ea/ Sodium Chloride) 500 mls @ 250 mls/hr IV PRN PRN; Protocol PRN Reason: Rx to Dose Vancomycin HCl (Vancomycin) 1,000 mg in 200 mls @ 200 mls/hr IV Q12H [facility] Last Infusion: 12/07/18 05:37 Dose: Infused Documented by: Sodium Chloride () 250 mls @ 15 mls/hr IV .[id number] PRN PRN Reason: SALINE FLUSH Last Infusion: 12/07/18 15:00 Dose: 15 mls/hr Documented by: Insulin Glargine (Lantus (Bkc)) 80 units SC BID [facility] [place] Last Admin: 12/07/18 10:09 Dose: 80 units Documented by: Insulin Human Lispro (Humalog Kwikpen (Bkc)) 50 unit SC TIDCM [facility] [place] Last Admin: 12/07/18 12:54 Dose: Not Given Documented by: Insulin Human Lispro (Humalog Kwikpen (Bkc)) 0 unit SC TIDAC [facility] [place]; Protocol Last Admin: 12/07/18 12:53 Dose: Not Given Documented by: Magnesium Oxide (Mag-Ox 400) 400 mg PO DAILY [facility] Last Admin: 12/07/18 09:07 Dose: 400 mg Documented by: Melatonin (Melatonin) 3 mg PO QHS PRN PRN PRN Reason: INSOMNIA Ondansetron HCl (Zofran) 4 mg IV Q8H PRN PRN PRN Reason: NAUSEA/VOMITING Oxycodone HCl (Oxyir) 5 mg PO Q4H PRN PRN PRN Reason: Moderate Pain (4-6/10) Last Admin: 12/06/18 18:14 Dose: 5 mg Documented by: Pantoprazole Sodium (Protonix) 20 mg PO DAILY [facility] [place] Last Admin: 12/07/18 09:07 Dose: 20 mg Documented by: Pot[facility] Admin: 12/07/18 09:05 Dose: 20 meq Documented by: Senna/Docusate Sodium (Senokot-S, Coleen-Colace) 2 tablet PO BID PRN PRN PRN Reason: Constipation Sodium Chloride () 10 - 40 ml IV UD PRN PRN Reason: SALINE FLUSH Last Admin: 12/07/18 09:05 Dose: 10 ml Documented by: Medical Necessity - Tobacco Use Smoking Status: Never smoker Tobacco Use: Non-smoker Assessment/Plan All Active Problems (Last Reviewed 12/06/18 @ 15:57 by Butch Schmitz DO) Severe sepsis (Acute) Cellulitis of left lower extremity without foot (Acute) Cellulitis (Acute) Sepsis (Acute) Orthopnea (Acute) Chest pain (Acute) Acute diastolic (congestive) heart failure (Acute) H/O coronary artery bypass surgery (Resolved ~03/2014) GERD (gastroesophageal reflux disease) (Resolved) Severe sepsis (Resolved) 3-year-old male with past medical history of chronic left leg lymphedema, history of MRSA infection due to have external veins for previous bypass, who comes in with complaints of redness and discomfort in his lower extremities similar to his previous episodes of cellulitis. 1. Severe sepsis secondary to left lower extremity cellulitis, mildly improved WBC minimally improved; still running low-grade fevers, lactic acid is 1.6 On IV vancomycin and cefazolin We will continue to monitor, continue above antibiotics 2. Left lower extremity cellulitis, posterior leg/cough fluctuance on exam? Subcutaneous abscess Plan: We will get a noncontrast CT scan of the leg, Doppler ultrasound to rule out DVT 3. TALITA on CKD stage IV, prerenal, likely from dehydration/sepsis creatinine elevated to 2.95, will continue to monitor Hold Lasix, metolazone and losartan, repeat blood work in a.m. 4. Chronic diastolic CHF, EF of 50%, no signs of acute exacerbation On carvedilol, Lasix, metolazone and losartan on hold 5. 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 6. Hypertension, continue on home amlodipine, and carvedilol Lasix, metolazone and losartan on hold 7. Super morbid obesity, BMI 56.0 kg, lifestyle modification recommended 8. DVT prophylaxis-Lovenox 40mg twice daily Code Visit Inpatient E&M: [id number] [facility] Hosp L2
--- NOTE | 2018-12-07 15:56 | CT_ITS ---
HISTORY:Left leg cellulitis, fever, ? abscess. Chronic left leg swelling since vessel grafting for CABG. Left leg cellulitis, fever, ? abscess. Chronic left leg swelling since vessel grafting for CABG. EXAMINATION: CT Lower Extremity from the level of the iliac crest through the foot W/O Contrast TECHNIQUE: Helically acquired images were obtained of the left lower extremity. This extends from the level of the iliac crests through the foot . 2-D reformats were performed by the technologist. A radiation dose optimization technique was used for this scan. IV Contrast dosage and agent: None. COMPARISON: None FINDINGS: Evaluation is limited without intravenous contrast SOFT TISSUES: Multiple lymph nodes are seen anterior to the upper thigh extending from the left inguinal region. The largest is seen on image 72 series 2 measuring 1.7 cm short axis. Surrounding fat stranding. Fat stranding extends along the lateral aspect of the upper thigh. There is fat stranding at the level of the knee. Small amount of fluid is seen anterior to the patella. Small knee joint effusion. Fat stranding is seen throughout the lower leg with sparing medially at the proximal lower leg however this extends circumferentially to the distal lower leg to the level of the ankle. Posterior fat stranding is seen at the level of the hindfoot. No gross muscular abnormalities are noted No radiopaque foreign body. BONES/JOINTS: No acute fracture or subluxation. Normal alignment. Medial lateral joint space narrowing is seen at the knee as well as patellofemoral joint space narrowing. There are marginal osteophytes. There is no evidence of osteomyelitis. No sclerotic or destructive changes. CT/Extremity Lower without Contra IMPRESSION: There is subcutaneous edema and fluid as discussed. There is also a small joint effusion at the knee. Osteoarthritis of the knee No gross muscular abnormalities These findings can be seen with cellulitis. Without contrast is difficult to assess for an abscess. This study is limited due to the large field of view. It would be more beneficial to obtain an ultrasound of the focal area suspect for abscess. This could assess for increased vascularity and fluid collection. Enlarged lymph nodes in left inguinal region as discussed Individualized dose optimization techniques were used for this CT. at 2129 Reported and signed by: Destini Pandey DO Electronically Signed: Destini Pandey DO at 21:28 EDT Tel , Service support ,
--- NOTE | 2018-12-07 15:59 | VDLE_ITS ---
Reason For Study: Swelling Procedure LEFT Exam performed portable in patient room. CFV is compressible, spontaneous, phasic, Technically limited and difficult study due competent, and demonstrates normal to pt body habitus and cellulitis of leg. augmentation. Unable to tolerate compressions in distal FV is compressible, spontaneous, phasic, thigh and calf. competent and demonstrates normal A preliminary report was called and/or faxed augmentation. to [facility]. POP V is compressible, spontaneous, phasic, competent and demonstrates normal augmentation. T/P Trunk is compressible. Lt PTV and PeroV visualized only at distal and appear patent with color. GSV previously harvested. Interpretation Summary Deep veins of the left lower extremity appear patent. There is no evidence of acute deep vein thrombosis. Portions of the left posterior tibial vein and peroneal vein were not visualized due to the patient's body habitus and cellulitis. Valvular competence appears intact within the proximal deep venous system on the left . The left great saphenous vein is absent, having been previously harvested. Ordering Physician: Hannah Guerrier Referring Physician: Betty Farrell Performed By: Grace Bonilla RVT
[2018-12-07] MEDS: Insulin Lispro 100 UNIT/ML INSULN.PEN 50 UNIT SC (17:26)
[2018-12-07 17:31] LABS: Bedside Glucose 178 mg/dL (70-110)
[2018-12-07 18:17] VITALS: TEMP 37.9
[2018-12-07 20:27] VITALS: BP 128/57; PULSE 78; RESP 18; TEMP 37.1; O2SAT 95
[2018-12-07] MEDS: Atorvastatin Calcium 40 MG Tablet PO (22:19)
[2018-12-07 22:30] LABS: Bedside Glucose 160 mg/dL (70-110)
[2018-12-08] VITALS (14 sets, daily range): BP systolic 128–164; BP diastolic 69–95; PULSE 70–80; RESP 16–25; TEMP 36.8–37.6; O2SAT 88–97
[2018-12-08 00:15] LABS: Bedside Glucose 60 mg/dL (70-110)
[2018-12-08 00:40] LABS: Bedside Glucose 84 mg/dL (70-110)
[2018-12-08] MEDS: 0.9% NaCl IVPB Med Flush (250 mL) 15 ML IV (01:30)
[2018-12-08] MEDS: Acetaminophen 325 MG Tablet 650 MG PO ×2 (02:56→08:53)
[2018-12-08 03:56] LABS: Bedside Glucose 176 mg/dL (70-110)
[2018-12-08] MEDS: Vancomycin IV 1,000 MG/200 ML BAG 200 MG IV (04:55)
[2018-12-08 05:33] LABS: Vancomycin, Trough Level 19.8 ug/mL (5.0-15.0)
--- NOTE | 2018-12-08 05:41 | PCM.RX.CS ---
Consult Pharmacy has been consulted to manage selected antiobiotic: Vancomycin Type of Consult: Follow-up Suspected Infection: Skin/Soft tissue Prior Doses of Antibiotics Received/Current Regimen: Medications Vancomycin HCl (Vancomycin) 1,000 mg in 200 mls @ 200 mls/hr IV Q12H JOANA Last Admin: 12/08/18 04:55 Dose: 200 mls/hr Labs: Sodium 137 mmol/L (136-145) 12/07/18 05:05 Potassium 3.5 mmol/L (3.5-5.1) 12/07/18 05:05 Chloride 104 mmol/L (98-107) 12/07/18 05:05 Carbon Dioxide 23.0 mmol/L (21.0-32.0) 12/07/18 05:05 Anion Gap 10 (5-15) 12/07/18 05:05 BUN 51 mg/dL (7-18) H 12/07/18 05:05 Creatinine 2.95 mg/dL (0.70-1.30) H 12/07/18 05:05 Est GFR (MDRD) Af Amer 29 mL/min (>60) L 12/07/18 05:05 Est GFR (MDRD) Non-Af 24 mL/min (>60) L 12/07/18 05:05 BUN/Creatinine Ratio 17.3 RATIO (10-20) 12/07/18 05:05 Glucose 122 mg/dL (74-106) H 12/07/18 05:05 Vancomycin Trough 19.8 ug/mL (5.0-15.0) H 12/08/18 04:40 Weight used for dosin kg Estimated Creatinine Clearance: 41.8 Goal Trough: 15-20 mcg/mL Pharmacy Plan for Drug Dosing: Vancomycin trough level of 19.8 was within target range of 15-20. Will continue current dosing of 1000mg q12h and re-draw trough in 3 days. Pharmacy Service will continue to monitor and adjust dosing as required. Follow-Up Labs: Trough Vancomycin Labs to be done on [date and time ordered]: 12/11/18 @1630
[2018-12-08] MEDS: Cefazolin 1 GM/50 ML BAG IV ×3 (06:42→22:24)
[2018-12-08 06:55] LABS: Bedside Glucose 179 mg/dL (70-110)
[2018-12-08] MEDS: buPROPion (XL) 150 MG TABLET.XL PO (08:23)
[2018-12-08] MEDS: amLODIPine 10 MG Tablet PO (08:23)
[2018-12-08] MEDS: Pantoprazole Sodium 20 MG Tablet PO (08:23)
[2018-12-08] MEDS: Magnesium Oxide 400 MG Tablet PO (08:23)
[2018-12-08] MEDS: Ferrous Sulfate 325 MG Tablet PO ×2 (08:23→17:35)
[2018-12-08] MEDS: Aspirin 81 MG TAB.CHEW PO (08:23)
[2018-12-08] MEDS: Carvedilol 25 MG Tablet PO ×2 (08:24→22:25)
[2018-12-08] MEDS: Albuterol 2.5 MG/3 ML VIAL.NEB. INHALATION ×3 (08:27→16:32)
[2018-12-08 09:13] LABS: BUN 53 mg/dL (7-18); Creatinine, Serum 3.22 mg/dL (0.70-1.30); Estimated Creatinine Clearance 24.23 ml/min; Glucose 185 mg/dL (74-106)
[2018-12-08 09:14] LABS: Anion Gap 8 (5-15); BUN/Creat Ratio 16.5 RATIO (10-20); Calcium,Total 7.8 mg/dL (8.5-10.1); Chloride 102 mmol/L (98-107); EST Glomerular Filtration Rate 21 mL/min (>60); Est Glom Filt Rate - Afr Amer 26 mL/min (>60); Potassium 3.3 mmol/L (3.5-5.1); Sodium Level 131 mmol/L (136-145)
[2018-12-08 09:21] LABS: Absolute Lymphocyte Count 0.73 X10^3/uL (0.83-4.51); Absolute Neutrophil Count 10.8 X10^3/uL (2.0-7.7); Basophil# 0.03 X10^3/uL; Basophil% 0.2 % (0-1); Eosinophil# 0.05 X10^3/uL; Eosinophils% 0.4 % (0-5); Hematocrit 37.2 % (40-54); Hemoglobin 12.6 g/dL (13.0-16.5); Lymphocyte # 0.73 X10^3/ul (4.0); Lymphocyte % 5.9 % (19-41); Mean Corp Hgb Conc 33.9 g/dL (32-36); Mean Corpuscular Hgb 30.1 pg (27.0-32.0); Monocyte# 0.66 X10^3/uL; Monocyte% 5.3 % (0-10); NRBC Flagged by Analyzer 0 % (0-5); Neutrophil % 87.2 % (47-70); Platelet Count 145 K/mm3 (150-450); RBC Distribution Width CV 13.6 % (11.6-14.6); RBC Distribution Width SD 44.4 fl (35.1-43.9); Red Blood Count 4.18 M/mm3 (4.6-6.2); White Blood Count 12.4 K/mm3 (4.4-11.0)
[2018-12-08] MEDS: Enoxaparin 40 MG/0.4 ML Syringe SC (10:10)
--- NOTE | 2018-12-08 11:04 | PN_ITS ---
Patient Problems: Active and Suspected Problems (Last Reviewed 12/06/18 @ 15:57 by Butch Schmitz DO) Severe sepsis (Acute) Cellulitis of left lower extremity without foot (Acute) Cellulitis (Acute) Sepsis (Acute) Subjective: Patient was seen and examined. Appears improved. Pain in left leg is improved Objective: Physical Exam General: Alert, Cooperative, No apparent distress, Well developed, Well nourished, morbidly obese HEENT: Atraumatic, Normocephalic Oral: Moist Mucosa, Dry Mucosa Neck: No Nodes, Thyroid Normal Size and Texture Lungs: Clear to auscultation, Normal air movement, No rhonchi, No wheeze, No rales Cardiovascular: Regular rate, Regular Rhythm, Normal S1, Normal S2, No murmurs Abdomen: Bowel Sounds Present, Soft, Non Tender, Non-Distended, Obese Extremities: Left calfTenderness, - - Lymphedema in the left lower extremity no weeping wounds. Skin: - -Left lower leg is swollen and erythematous, warm to touch, fluctuance seen over the posterior leg,?subcutaneous abscess Musculoskeletal: No Tenderness to Palpation of Joints or Extremities Neurological: Sensory exam intact to light touch and pain, - - No clonus Psych/Mental Status: Normal Affect, Appropriate Vitals/I&O's: Vital Signs Temp Pulse Resp BP Pulse Ox 98.8 F 73 21 H 141/73 H 88 12/08/18 03:45 12/08/18 08:25 12/08/18 08:25 12/08/18 02:52 12/08/18 08:42 Oxygen Flow Rate (L/min) 2 Oxygen Delivery Method Nasal Cannula Weight: 162.3 kg Body Mass Index (BMI) 56.0 Intake and Output for Last 24 Hours 12/06/18 12/07/18 12/08/18 23:59 23:59 23:59 Intake Total 1012.5 / 1012.5 3507.50 / 4257.50 1594.5 / 1594.5 Output Total 400 / 400 Balance 1012.5 / 1012.5 3107.50 / 3857.50 1594.5 / 1594.5 Microbiology Past 72 Hours 12/06/18 18:00 Urine, Clean Catch Urine Culture - Final Culture exhibits no growth. Laboratory Results 12/07/18 12:47: POC Glucose 135 H 12/07/18 17:18: POC Glucose 178 H 12/07/18 22:16: POC Glucose 160 H 12/07/18 23:47: POC Glucose 60 L 12/08/18 00:15: POC Glucose 84 12/08/18 03:49: POC Glucose 176 H 12/08/18 04:40: Vancomycin Trough 19.8 H 12/08/18 06:41: POC Glucose 179 H 12/08/18 08:12: Sodium 131 L, Potassium 3.3 L, Chloride 102, Carbon Dioxide 21.0, Anion Gap 8, BUN 53 H, Creatinine 3.22 H, Estim Creat Clear Calc 24.23, Est GFR (MDRD) Af Amer 26 L, Est GFR (MDRD) Non-Af 21 L, BUN/Creatinine Ratio 16.5, Glucose 185 H, Calcium 7.8 L 12/08/18 08:50: WBC 12.4 H, RBC 4.18 L, Hgb 12.6 L, Hct 37.2 L, MCV 89.0, MCH 30.1, MCHC 33.9, RDW Std Deviation 44.4 H, RDW Coeff of Eva 13.6, Plt Count 145 L, MPV 11.0, Immature Gran % (Auto) 1.000 H, Neut % (Auto) 87.2 H, Lymph % (Auto) 5.9 L, Saline % (Auto) 5.3, Eos % (Auto) 0.4, Baso % (Auto) 0.2, Absolute Neuts (auto) 10.8 H, Absolute Lymphs (auto) 0.73 L, Nucleated RBC % 0 Current Medications Acetaminophen (Tylenol) 650 mg PO Q6H PRN PRN PRN Reason: Mild Pain (1-3)/Temp > 100.7 F Last Admin: 12/08/18 08:53 Dose: 650 mg Documented by: Albuterol Sulfate (Ventolin Aerosols) 2.5 mg INHALATION Q2H PRN PRN PRN Reason: Shortness of Breath/Wheezing Last Admin: 12/08/18 08:27 Dose: 2.5 mg Documented by: Albuterol Sulfate (Ventolin Aerosols) 2.5 mg INHALATION Q6HWA.RT JOANA Amlodipine Besylate (Norvasc) 10 mg PO DAILY JOANA Last Admin: 12/08/18 08:23 Dose: 10 mg Documented by: Aspirin (Aspirin, Baby) 81 mg PO DAILY@0800 [facility] Last Admin: 12/08/18 08:23 Dose: 81 mg Documented by: Atorvastatin Calcium (Lipitor) 40 mg PO QHS [facility] Last Admin: 12/07/18 22:19 Dose: 40 mg Documented by: Bupropion HCl (Wellbutrin Xl) 150 mg PO DAILY [facility] Last Admin: 12/08/18 08:23 Dose: 150 mg Documented by: Carvedilol (Coreg) 25 mg PO BID [facility] Last Admin: 12/08/18 08:24 Dose: 25 mg Documented by: Dextrose (D50w Syringe) 0 gm IV X1 PRN; Protocol PRN Reason: Hypoglycemia Enoxaparin Sodium (Lovenox) 40 mg SC BID [facility] Last Admin: 12/08/18 10:10 Dose: 40 mg Documented by: Ferrous Sulfate (Ferrous Sulfate) 325 mg PO BIDCM [facility] Last Admin: 12/08/18 08:23 Dose: 325 mg Documented by: Glucagon () 1 mg IM .X1 PRN PRN Reason: Hypoglycemia Cefazolin Sodium () 1 gm in 50 mls @ 150 mls/hr IV Q8 [facility] Last Infusion: 12/08/18 07:02 Dose: Infused Documented by: Vancomycin IV Pharmacy to Dose (1 ea/ Sodium Chloride) 500 mls @ 250 mls/hr IV PRN PRN; Protocol PRN Reason: Rx to Dose Sodium Chloride () 250 mls @ 15 mls/hr IV .[id number] PRN PRN Reason: SALINE FLUSH Last Infusion: 12/08/18 07:02 Dose: 15 mls/hr Documented by: Sodium Chloride () 1,000 mls @ 75 mls/hr IV .[id number] [facility] Stop: 12/09/18 13:14 Insulin Glargine (Lantus (Bkc)) 80 units SC BID [facility] Last Admin: 12/08/18 08:27 Dose: 80 units Documented by: Insulin Human Lispro (Humalog Kwikpen (Bkc)) 50 unit SC TIDCM [facility] Last Admin: 12/08/18 08:24 Dose: Not Given Documented by: Insulin Human Lispro (Humalog Kwikpen (Bkc)) 0 unit SC TIDAC [facility]; Protocol Last Admin: 12/08/18 06:46 Dose: Not Given Documented by: Magnesium Oxide (Mag-Ox 400) 400 mg PO DAILY [facility] Last Admin: 12/08/18 08:23 Dose: 400 mg Documented by: Melatonin (Melatonin) 3 mg PO QHS PRN PRN PRN Reason: INSOMNIA Ondansetron HCl (Zofran) 4 mg IV Q8H PRN PRN PRN Reason: NAUSEA/VOMITING Oxycodone HCl (Oxyir) 5 mg PO Q4H PRN PRN PRN Reason: Moderate Pain (4-6/10) Last Admin: 12/06/18 18:14 Dose: 5 mg Documented by: Pantoprazole Sodium (Protonix) 20 mg PO DAILY [facility] Last Admin: 12/08/18 08:23 Dose: 20 mg Documented by: Senna/Docusate Sodium (Senokot-S, Coleen-Colace) 2 tablet PO BID PRN PRN PRN Reason: Constipation Sodium Chloride () 10 - 40 ml IV UD PRN PRN Reason: SALINE FLUSH Last Admin: 12/07/18 17:21 Dose: 10 ml Documented by: Medical Necessity - Tobacco Use Smoking Status: Never smoker Tobacco Use: Non-smoker Assessment/Plan All Active Problems (Last Reviewed 12/06/18 @ 15:57 by Butch Schmitz DO) Severe sepsis (Acute) Cellulitis of left lower extremity without foot (Acute) Cellulitis (Acute) Sepsis (Acute) Orthopnea (Acute) Chest pain (Acute) Acute diastolic (congestive) heart failure (Acute) H/O coronary artery bypass surgery (Resolved ~03/2014) GERD (gastroesophageal reflux disease) (Resolved) Severe sepsis (Resolved) 53-year-old male with past medical history of chronic left leg lymphedema, history of MRSA infection due to have external veins for previous bypass, who comes in with complaints of redness and discomfort in his lower extremities similar to his previous episodes of cellulitis. 1. Severe sepsis secondary to left lower extremity cellulitis, improving WBC improved, no more having fevers, discontinue on IV vancomycin Blood cultures are pending. Continue on IV cefazolin(Day 3) 2. Left lower extremity cellulitis, posterior leg/ fluctuance on exam, CT scan of the lower extremity was negative for obvious acute abscess. We will continue to manage cellulitis with conservative treatment such as elevate fluids, pain control, IV cefazolin 3. TALITA on CKD stage IV, prerenal, likely from dehydration/sepsis/ vancomycin effect on kidneys Vanco trough is 19.8 creatinine is 3.22, nephrology consulted Will hold Lasix, metolazone and losartan, repeat blood work in a.m. 4. Chronic diastolic CHF, EF of 50%, no signs of acute exacerbation On carvedilol. Lasix, metolazone and losartan on hold 5. 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 6. Hypertension, continue on home amlodipine, and carvedilol Lasix, metolazone and losartan on hold 7. Super morbid obesity, BMI 56.0 kg, lifestyle modification recommended 8. DVT prophylaxis-Heparin SC Code Visit Inpatient E&M: 07149 Subs Hosp L2
[2018-12-08] MEDS: Insulin Lispro 100 UNIT/ML INSULN.PEN 50 UNIT SC (11:58)
[2018-12-08] MEDS: 0.9% Normal Saline 1,000 ML 75 ML IV (12:03)
[2018-12-08 12:10] LABS: Bedside Glucose 202 mg/dL (70-110)
[2018-12-08] MEDS: 0.9% NaCl Peripheral Flush Adult/Peds IV (14:24)
--- NOTE | 2018-12-08 16:39 | CPS ---
Called to room by RN, patient had gotten wheezy again with shortness of breath and required Oxygen. Patient with sat of 90% on 2lpm, increased to 3lpm, sat at 91%. Respirations increased to around 26. Stridor noted over trachea with audible expiratory wheezes heard. Albuterol treatment given, no relief/change noted. RN paged about stridor.
[2018-12-08 17:45] LABS: Bedside Glucose 213 mg/dL (70-110)
--- NOTE | 2018-12-08 17:55 | RAD_ITS ---
STUDY: X-RAY CHEST REASON FOR EXAM: Male, 53 years old. Shortness of breath TECHNIQUE: Frontal portable view of the chest was performed COMPARISON: 18 October 2017 FINDINGS: There is moderate to severe cardiomegaly and moderate pulmonary edema. There is no pneumothorax, pneumonia or pleural effusions. Sternotomy wires are in place. Osseous structures are intact. Appearance is similar to priors. RAD/Chest 1 View (Portable) IMPRESSION: 1. Moderate to severe cardiomegaly and moderate pulmonary edema. Electronically Signed: Willie Wilder, at 18:50 EDT Tel , Service support ,
[2018-12-08 19:05] LABS: Urine Sodium 14 mmol/L (Not Establ.)
[2018-12-08] MEDS: Ipratropium/Albuterol Sulfate 3 ML AMPUL.NEB INHALATION (19:24)
[2018-12-08] MEDS: oxyCODONE 5 MG Tablet PO (20:43)
[2018-12-08] MEDS: Atorvastatin Calcium 40 MG Tablet PO (22:26)
[2018-12-08] MEDS: Heparin Injection (Vial) 5,000 UNIT/ML VIAL 5000 UNIT SC (22:27)
[2018-12-08 22:35] LABS: Bedside Glucose 160 mg/dL (70-110)
[2018-12-09] VITALS (10 sets, daily range): BP systolic 129–162; BP diastolic 72–88; PULSE 59–70; RESP 16–20; TEMP 36.3–36.6; O2SAT 91–96
[2018-12-09] MEDS: Cefazolin 1 GM/50 ML BAG IV ×3 (05:25→21:12)
[2018-12-09] MEDS: Heparin Injection (Vial) 5,000 UNIT/ML VIAL 5000 UNIT SC ×3 (05:31→21:12)
[2018-12-09 06:22] LABS: Absolute Lymphocyte Count 0.73 X10^3/uL (0.83-4.51); Absolute Neutrophil Count 9.1 X10^3/uL (2.0-7.7); Basophil# 0.03 X10^3/uL; Basophil% 0.3 % (0-1); Hematocrit 34.5 % (40-54); Hemoglobin 11.5 g/dL (13.0-16.5); Lymphocyte # 0.73 X10^3/ul (4.0); Mean Corp Hgb Conc 33.3 g/dL (32-36); Mean Corpuscular Hgb 29.2 pg (27.0-32.0); Mean Corpuscular Volume 87.6 fL (80-94); Mean Platelet Vol. 11.1 fl (6.2-12.0); Monocyte# 0.49 X10^3/uL; Monocyte% 4.7 % (0-10); NRBC Flagged by Analyzer 0 % (0-5); Neutrophil # 9.08 X10^3/uL (2.7-7.7); Neutrophil % 87.2 % (47-70); Platelet Count 134 K/mm3 (150-450); RBC Distribution Width CV 13.2 % (11.6-14.6); RBC Distribution Width SD 42.4 fl (35.1-43.9); Red Blood Count 3.94 M/mm3 (4.6-6.2); White Blood Count 10.4 K/mm3 (4.4-11.0)
[2018-12-09 06:30] LABS: Bedside Glucose 229 mg/dL (70-110)
[2018-12-09 06:38] LABS: Albumin, Serum 1.7 g/dL (3.2-5.0); BUN 62 mg/dL (7-18); BUN/Creat Ratio 19.5 RATIO (10-20); Calcium,Total 8.1 mg/dL (8.5-10.1); Chloride 105 mmol/L (98-107); Creatinine, Serum 3.18 mg/dL (0.70-1.30); EST Glomerular Filtration Rate 22 mL/min (>60); Est Glom Filt Rate - Afr Amer 26 mL/min (>60); Estimated Creatinine Clearance 24.54 ml/min; Glucose 222 mg/dL (74-106); Phosphorus 4.2 mg/dL (2.5-4.9); Potassium 4.1 mmol/L (3.5-5.1); Sodium Level 135 mmol/L (136-145)
[2018-12-09] MEDS: 0.9% Normal Saline 1,000 ML 50 ML IV (06:44)
[2018-12-09] MEDS: Ipratropium/Albuterol Sulfate 3 ML AMPUL.NEB INHALATION ×3 (06:59→19:05)
[2018-12-09] MEDS: Insulin Lispro 100 UNIT/ML INSULN.PEN 50 UNIT SC ×3 (08:31→16:40)
[2018-12-09] MEDS: Insulin Lispro 100 UNIT/ML INSULN.PEN SC ×3 (08:32→16:40)
[2018-12-09] MEDS: Magnesium Oxide 400 MG Tablet PO (08:35)
[2018-12-09] MEDS: Aspirin 81 MG TAB.CHEW PO (08:35)
[2018-12-09] MEDS: Pantoprazole Sodium 20 MG Tablet PO (08:35)
[2018-12-09] MEDS: Ferrous Sulfate 325 MG Tablet PO ×2 (08:35→16:40)
[2018-12-09] MEDS: amLODIPine 10 MG Tablet PO (08:35)
[2018-12-09] MEDS: Carvedilol 25 MG Tablet PO ×2 (08:35→21:12)
[2018-12-09] MEDS: buPROPion (XL) 150 MG TABLET.XL PO (08:36)
[2018-12-09 11:41] LABS: Bedside Glucose 350 mg/dL (70-110)
--- NOTE | 2018-12-09 12:12 | PN_ITS ---
Patient Problems: Active and Suspected Problems (Last Reviewed 12/06/18 @ 15:57 by Butch Schmitz DO) Severe sepsis (Acute) Cellulitis of left lower extremity without foot (Acute) Cellulitis (Acute) Sepsis (Acute) Subjective: Patient was seen and examined. He was short of breath later in the day yesterday. Chest x-ray showed to severe cardiomegaly with moderate pulmonary edema. He feels much better. Denied any fever or chills. Pain in the leg is much improved. He has been able to ambulate a lot. Denies any fever or chills or diarrhea. Objective: Physical Exam General: Alert, Cooperative, No apparent distress, Well developed, Well nourished, morbidly obese HEENT: Atraumatic, Normocephalic Oral: Moist Mucosa, Dry Mucosa Neck: No Nodes, Thyroid Normal Size and Texture Lungs: Clear to auscultation, Normal air movement, No rhonchi, No wheeze, No rales Cardiovascular: Regular rate, Regular Rhythm, Normal S1, Normal S2, No murmurs Abdomen: Bowel Sounds Present, Soft, Non Tender, Non-Distended, Obese Extremities: Left calf Tenderness, - - Lymphedema in the left lower extremity no weeping wounds. Skin: - -Left lower leg remains swollen, less erythematous and warm to touch Musculoskeletal: No Tenderness to Palpation of Joints or Extremities Neurological: Sensory exam intact to light touch and pain, - - No clonus Psych/Mental Status: Normal Affect, Appropriate Vitals/I&O's: Vital Signs Temp Pulse Resp BP Pulse Ox 97.9 F 70 18 152/79 H 94 12/09/18 08:24 12/09/18 08:24 12/09/18 08:24 12/09/18 08:24 12/09/18 08:24 Oxygen Flow Rate (L/min) 2 Oxygen Delivery Method Nasal Cannula Weight: 162.3 kg Body Mass Index (BMI) 56.0 Intake and Output for Last 24 Hours 12/07/18 12/08/18 12/09/18 23:59 23:59 23:59 Intake Total 3507.50 / 4257.50 3241.00 / 3241.00 4158.75 / 4158.75 Output Total 400 / 400 750 / 750 1250 / 1250 Balance 3107.50 / 3857.50 2491.00 / 2491.00 2908.75 / 2908.75 Microbiology Past 72 Hours 12/06/18 14:56 Blood Culture (Wb) - Arm Left Blood Culture - Preliminary No growth in 48 hours. 12/06/18 14:30 Blood Culture (Wb) - Right Hand Blood Culture - Preliminary No growth in 48 hours. 12/06/18 18:00 Urine, Clean Catch Urine Culture - Final Culture exhibits no growth. Laboratory Results 12/08/18 17:33: POC Glucose 213 H 12/08/18 18:10: Urine Creatinine 143.00 12/08/18 18:10: Ur Random Sodium 14 12/08/18 22:31: POC Glucose 160 H 12/09/18 06:00: WBC 10.4, RBC 3.94 L, Hgb 11.5 L, Hct 34.5 L, MCV 87.6, MCH 29.2, MCHC 33.3, RDW Std Deviation 42.4, RDW Coeff of Eva 13.2, Plt Count 134 L, MPV 11.1, Immature Gran % (Auto) 0.800, Neut % (Auto) 87.2 H, Lymph % (Auto) 7.0 L, Christian % (Auto) 4.7, Eos % (Auto) 0.0, Baso % (Auto) 0.3, Absolute Neuts (auto) 9.1 H, Absolute Lymphs (auto) 0.73 L, Nucleated RBC % 0 12/09/18 06:00: Sodium 135 L, Potassium 4.1, Chloride 105, Carbon Dioxide 17.0 L , BUN 62 H, Creatinine 3.18 H, Estim Creat Clear Calc 24.54, Est GFR (MDRD) Af Amer 26 L, Est GFR (MDRD) Non-Af 22 L, BUN/Creatinine Ratio 19.5, Glucose 222 H, Calcium 8.1 L, Phosphorus 4.2, Albumin 1.7 L 12/09/18 06:24: POC Glucose 229 H 12/09/18 11:26: POC Glucose 350 H Current Medications Acetaminophen (Tylenol) 650 mg PO Q6H PRN PRN PRN Reason: Mild Pain (1-3)/Temp > 100.7 F Last Admin: 12/08/18 08:53 Dose: 650 mg Documented by: Albuterol Sulfate (Ventolin Aerosols) 2.5 mg INHALATION Q2H PRN PRN PRN Reason: Shortness of Breath/Wheezing Last Admin: 12/08/18 16:32 Dose: 2.5 mg Documented by: Albuterol/Ipratropium (Duoneb) 3 ml INHALATION Q4HWA.RT [facility] Last Admin: 12/09/18 10:59 Dose: Not Given Documented by: Amlodipine Besylate (Norvasc) 10 mg PO DAILY [facility] Last Admin: 12/09/18 08:35 Dose: 10 mg Documented by: Aspirin (Aspirin, Baby) 81 mg PO DAILY@0800 [facility] Last Admin: 12/09/18 08:35 Dose: 81 mg Documented by: Atorvastatin Calcium (Lipitor) 40 mg PO QHS [facility] Last Admin: 12/08/18 22:26 Dose: 40 mg Documented by: Bupropion HCl (Wellbutrin Xl) 150 mg PO DAILY [facility] Last Admin: 12/09/18 08:36 Dose: 150 mg Documented by: Carvedilol (Coreg) 25 mg PO BID [facility] Last Admin: 12/09/18 08:35 Dose: 25 mg Documented by: Dextrose (D50w Syringe) 0 gm IV X1 PRN; Protocol PRN Reason: Hypoglycemia Ferrous Sulfate (Ferrous Sulfate) 325 mg PO BIDCM [facility] Last Admin: 12/09/18 08:35 Dose: 325 mg Documented by: Glucagon () 1 mg IM .X1 PRN PRN Reason: Hypoglycemia Heparin Sodium (Porcine) (Heparin Na) 5,000 unit SC Q8 [facility] Last Admin: 12/09/18 05:31 Dose: 5,000 unit Documented by: Cefazolin Sodium () 1 gm in 50 mls @ 150 mls/hr IV Q8 [facility] Last Infusion: 12/09/18 05:45 Dose: Infused Documented by: Sodium Chloride () 250 mls @ 15 mls/hr IV .[id number] PRN PRN Reason: SALINE FLUSH Last Infusion: 12/08/18 12:03 Dose: Infused Documented by: Sodium Chloride () 1,000 mls @ 50 mls/hr IV .Q20H [facility] Stop: 12/10/18 02:34 Last Admin: 12/09/18 06:44 Dose: 50 mls/hr Documented by: Insulin Glargine (Lantus (Bkc)) 84 units SC BID [facility] Insulin Human Lispro (Humalog Kwikpen (Bkc)) 50 unit SC TIDCM [facility] Last Admin: 12/09/18 08:31 Dose: 20 units Documented by: Insulin Human Lispro (Humalog Kwikpen (Bkc)) 0 unit SC TIDAC [facility]; Protocol Last Admin: 12/09/18 08:32 Dose: 2 units Documented by: Magnesium Oxide (Mag-Ox 400) 400 mg PO DAILY [facility] Last Admin: 12/09/18 08:35 Dose: 400 mg Documented by: Melatonin (Melatonin) 3 mg PO QHS PRN PRN PRN Reason: INSOMNIA Methylprednisolone (Solu-Medrol) 40 mg IV Q8 [facility] Last Admin: 12/09/18 05:30 Dose: 40 mg Documented by: Ondansetron HCl (Zofran) 4 mg IV Q8H PRN PRN PRN Reason: NAUSEA/VOMITING Oxycodone HCl (Oxyir) 5 mg PO Q4H PRN PRN PRN Reason: Moderate Pain (4-6/10) Last Admin: 12/08/18 20:43 Dose: 5 mg Documented by: Pantoprazole Sodium (Protonix) 20 mg PO DAILY [facility] Last Admin: 12/09/18 08:35 Dose: 20 mg Documented by: Senna/Docusate Sodium (Senokot-S, Coleen-Colace) 2 tablet PO BID PRN PRN PRN Reason: Constipation Sodium Chloride () 10 - 40 ml IV UD PRN PRN Reason: SALINE FLUSH Last Admin: 12/08/18 14:24 Dose: 10 ml Documented by: Medical Necessity - Tobacco Use Smoking Status: Never smoker Tobacco Use: Non-smoker Assessment/Plan All Active Problems (Last Reviewed 12/06/18 @ 15:57 by Butch Schmitz DO) Severe sepsis (Acute) Cellulitis of left lower extremity without foot (Acute) Cellulitis (Acute) Sepsis (Acute) Orthopnea (Acute) Chest pain (Acute) Acute diastolic (congestive) heart failure (Acute) H/O coronary artery bypass surgery (Resolved ~03/2014) GERD (gastroesophageal reflux disease) (Resolved) Severe sepsis (Resolved) 53-year-old male with past medical history of chronic left leg lymphedema, history of MRSA infection due to have external veins for previous bypass, who comes in with complaints of redness and discomfort in his lower extremities similar to his previous episodes of cellulitis. 1. Acute hypoxic respiratory insufficiency likely secondary to acute on chronic diastolic CHF/fluid overload On 2 L nasal cannula oxygen, EF 60% with stage II diastolic dysfunction Plan: We will give 1 dose of Lasix 20 mg IV x1, DC IV fluids, encourage use of incentive spirometer, wean off oxygen for SPO2 more than 94% 2. Severe sepsis secondary to left lower extremity cellulitis, improving Blood culture showed no growth in 48 hours. On IV cefazolin 3. Left lower extremity cellulitis, posterior leg/ fluctuance on exam, CT scan of the lower extremity was negative for obvious acute abscess. We will continue to manage cellulitis with conservative treatment such as elevate fluids, pain control, IV cefazolin 4. TALITA on CKD stage IV, prerenal, likely from cardiorenal/sepsis/ vancomycin effect on kidneys creatininetoday is 3.18, nephrology consulted Given 1 dose of Lasix 20 mg IV for fluid overload , will hold IV fluids, metolaz one and losartan, repeat blood work in a.m. 5. 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 6. Hypertension, continue on home amlodipine, and carvedilol Lasix, metolazone and losartan on hold 7. Super morbid obesity, BMI 56.0 kg, lifestyle modification recommended 8. DVT prophylaxis-Heparin SC Code Visit Inpatient E&M: 15173 Subs Hosp L2
[2018-12-09] MEDS: Furosemide 20 MG/2 ML VIAL IV (13:14)
[2018-12-09] MEDS: 0.9% NaCl Peripheral Flush Adult/Peds IV ×2 (13:14→21:19)
--- NOTE | 2018-12-09 15:54 | CON.PCM_ITS ---
Consultation - Renal 12/09/18 PCP/ Referring MD: Requesting physician: Hannah Guerrier MD Primary care physician: Betty Farrell MD Reason for Consultation:: Acute on CKD stage 3 - History of Present Illness History of Present Illness: The patient is a 53 year old morbidly obese M with CKD stage III due to biopsy- proven diabetic nephropathy with nephrotic proteinuria, baseline creatinine of 2.0, chronic lymphedema of his lower extremity admitted for severe cellulitis of his left lower extremity. He complains of fever and chills since Tuesday prior to admission. He had nausea and vomiting with poor appetite. Today was the first day that his appetite has improved. He was being evaluated for severe sepsis. He does not recall driving through 3 towns to get to the hospital on day of admission. He is feeling better and feels back to his baseline. He is anxious to go home. He received IV vancomycin and Piperacillin and tazobactam now on cefazolin. I was asked to see him in consult for worsening renal function. Creatinine was 2.57 on admission increased to 3.2 improved to 3.18 today. He received gentle IV hydration. His diuretics and losartan were discontinued. He complains of some shortness of breath with exertion. His lower extremity edema is stable. His left calf diameter is larger than his right but this is chronic. His tenderness over his cellulitis is improved. Erythema is improved. He denies any urinary complaints. [] - Allergies Allergies: Allergies pravastatin sodium [From Pravachol] Adverse Reaction (Intermediate, Verified 10/28/18 11:21) muscle aches ACHY MUSCLES - Current Medications Current Medications: Current Medications Acetaminophen (Tylenol) 650 mg PO Q6H PRN PRN PRN Reason: Mild Pain (1-3)/Temp > 100.7 F Last Admin: 12/08/18 08:53 Dose: 650 mg Documented by: Albuterol Sulfate (Ventolin Aerosols) 2.5 mg INHALATION Q2H PRN PRN PRN Reason: Shortness of Breath/Wheezing Last Admin: 12/08/18 16:32 Dose: 2.5 mg Documented by: Albuterol/Ipratropium (Duoneb) 3 ml INHALATION Q4HWA.RT JOANA Last Admin: 12/09/18 15:04 Dose: 3 ml Documented by: Amlodipine Besylate (Norvasc) 10 mg PO DAILY [facility] Last Admin: 12/09/18 08:35 Dose: 10 mg Documented by: Aspirin (Aspirin, Baby) 81 mg PO DAILY@0800 [facility] Last Admin: 12/09/18 08:35 Dose: 81 mg Documented by: Atorvastatin Calcium (Lipitor) 40 mg PO QHS [facility] Last Admin: 12/08/18 22:26 Dose: 40 mg Documented by: Bupropion HCl (Wellbutrin Xl) 150 mg PO DAILY [facility] Last Admin: 12/09/18 08:36 Dose: 150 mg Documented by: Carvedilol (Coreg) 25 mg PO BID [facility] Last Admin: 12/09/18 08:35 Dose: 25 mg Documented by: Dextrose (D50w Syringe) 0 gm IV X1 PRN; Protocol PRN Reason: Hypoglycemia [facility] Last Admin: 12/09/18 08:35 Dose: 325 mg Documented by: Glucagon () 1 mg IM .X1 PRN PRN Reason: Hypoglycemia Heparin Sodium (Porcine) (Heparin Na) 5,000 unit SC Q8 [facility] Last Admin: 12/09/18 13:14 Dose: 5,000 unit Documented by: Cefazolin Sodium () 1 gm in 50 mls @ 150 mls/hr IV Q8 [facility] Last Infusion: 12/09/18 15:40 Dose: Infused Documented by: Sodium Chloride () 250 mls @ 15 mls/hr IV .[id number] PRN PRN Reason: SALINE FLUSH Last Infusion: 12/08/18 12:03 Dose: Infused Documented by: Insulin Glargine (Lantus (Bkc)) 84 units SC BID [facility] Insulin Human Lispro (Humalog Kwikpen (Bkc)) 50 unit SC TIDCM [facility] Last Admin: 12/09/18 12:12 Dose: 50 units Documented by: Insulin Human Lispro (Humalog Kwikpen (Bkc)) 0 unit SC TIDAC [facility]; Protocol Last Admin: 12/09/18 12:11 Dose: 6 units Documented by: Magnesium Oxide (Mag-Ox 400) 400 mg PO DAILY [facility] Last Admin: 12/09/18 08:35 Dose: 400 mg Documented by: Melatonin (Melatonin) 3 mg PO QHS PRN PRN PRN Reason: INSOMNIA Ondansetron HCl (Zofran) 4 mg IV Q8H PRN PRN PRN Reason: NAUSEA/VOMITING Oxycodone HCl (Oxyir) 5 mg PO Q4H PRN PRN PRN Reason: Moderate Pain (4-6/10) Last Admin: 12/08/18 20:43 Dose: 5 mg Documented by: Pantoprazole Sodium (Protonix) 20 mg PO DAILY [facility] Last Admin: 12/09/18 08:35 Dose: 20 mg Documented by: Senna/Docusate Sodium (Senokot-S, Coleen-Colace) 2 tablet PO BID PRN PRN PRN Reason: Constipation Sodium Chloride () 10 - 40 ml IV UD PRN PRN Reason: SALINE FLUSH Last Admin: 12/09/18 13:14 Dose: 10 ml Documented by: - Past Medical History Past Medical History (Chronic Problems): Chronic Problems (Last Reviewed 12/06/18 @ 15:57 by Butch Schmitz DO) Chronic diastolic (congestive) heart failure (Chronic) Pure hypercholesterolemia (Chronic) Essential (primary) hypertension (Chronic) Dyspnea (Chronic) Left ventricular hypertrophy (Chronic) Secondary pulmonary arterial hypertension (Chronic) Atherosclerosis of coronary artery bypass graft without angina pectoris (Chronic) S/P CABG in 03/2014 with LOGAN to distal LAD, reverse SVG to first diagonal and second diagonal, obtuse marginal, and posterior descending artery; Lymphedema of left leg (Chronic) Morbid obesity (Chronic) Diabetes mellitus out of control (Chronic) - Past Surgical History Surgical History: coronary bypass surgery, - - Patient underwent coronary stent placement in 2008. He underwent coronary revascularization in March 2014, at which time 5 coronary bypass grafts were performed. Patient has a history of right groin wound debridement for MRSA. - Social History Marital Status: Smoking Status: Never smoker Alcohol: None - Family History Paternal Family History: Family History (Last Reviewed 12/06/18 @ 15:58 by Butch Schmitz DO) Father Hypertension History Items: Hypertension Maternal Family History: Family History (Last Reviewed 12/06/18 @ 15:58 by Butch Schmitz DO) Father Hypertension History Items: Cancer - brain, Seizures Review of Systems Constitutional: Reports: Anorexia, Chills, Fever, Weakness, Fatigue Eyes: Denies: Vision Change HEENT: Denies: Head Aches Cardiovascular: Reports: Edema. Denies: Chest Pain, Orthopnea, Syncope Respiratory: Reports: Shortness of breath upon exertion. Denies: Cough Gastrointestinal: Reports: Nausea - Resolved after admission, Vomiting Genitourinary: Denies: Dysuria Skin: Reports: Rash, - - Cellulitis with tenderness over left groin area over old scar tissue, inner thigh and left lower extremity Psychiatric: Denies: Anxiety, Depression Endocrine: Reports: - - diabetes, CGM in place Hematologic/ Lymphatic: Reports: Anemia. Denies: Hx of blood clot Patient Problems: Active and Suspected Problems (Last Reviewed 12/06/18 @ 15:57 by Butch Schmitz DO) Severe sepsis (Acute) Cellulitis of left lower extremity without foot (Acute) Cellulitis (Acute) Sepsis (Acute) - Physical Exam General: Alert, Oriented x3, Cooperative, No apparent distress HEENT: PERRLA, EOMI Neck: Supple, No JVD Lungs: Clear to auscultation, Diminished Cardiovascular: Regular rate Abdomen: Bowel Sounds Present, Soft, Non Tender, Non-Distended, Obese Extremities: Edema - LLE mild with erythemia left inner thigh, large diameter left calf Musculoskeletal: No Muscle Wasting Neurological: Cranial nerves II-XII grossly intact Psych/Mental Status: Normal Affect, Appropriate, Alert and oriented to time, place, person, mood and affect Vital Signs Temp Pulse Resp BP Pulse Ox 97.8 F 59 L 20 H 129/72 H 93 12/09/18 14:30 12/09/18 15:04 12/09/18 15:04 12/09/18 14:30 12/09/18 14:30 Oxygen Flow Rate (L/min) 91 Oxygen Delivery Method Room Air Weight: 162.3 kg Body Mass Index (BMI) 56.0 Intake and Output for Last 24 Hours 12/07/18 12/08/18 12/09/18 23:59 23:59 23:59 Intake Total 3507.50 / 4257.50 3241.00 / 3241.00 4622.08 / 4622.08 Output Total 400 / 400 750 / 750 1250 / 1250 Balance 3107.50 / 3857.50 2491.00 / 2491.00 3372.08 / 3372.08 Microbiology Past 72 Hours 12/06/18 14:56 Blood Culture - Preliminary Blood Culture (Wb) - Arm Left No growth in 48 hours. 12/06/18 14:30 Blood Culture - Preliminary Blood Culture (Wb) - Right Hand No growth in 48 hours. 12/06/18 18:00 Urine Culture - Final Urine, Clean Catch Culture exhibits no growth. Laboratory Tests Past 24 Hrs 12/08/18 12/08/18 12/09/18 18:10 18:10 06:00 WBC 10.4 RBC 3.94 L Hgb 11.5 L Hct 34.5 L MCV 87.6 MCH 29.2 MCHC 33.3 RDW Std Deviation 42.4 RDW Coeff of Eva 13.2 Plt Count 134 L MPV 11.1 Immature Gran % (Auto) 0.800 Neut % (Auto) 87.2 H Lymph % (Auto) 7.0 L [place] % (Auto) 4.7 Eos % (Auto) 0.0 Baso % (Auto) 0.3 Absolute Neuts (auto) 9.1 H Absolute Lymphs (auto) 0.73 L Nucleated RBC % 0 Sodium Potassium Chloride Carbon Dioxide BUN Creatinine Estim Creat Clear Calc Est GFR (MDRD) Af Amer Est GFR (MDRD) Non-Af BUN/Creatinine Ratio Glucose Calcium Phosphorus Albumin Ur Random Sodium 14 Urine Creatinine 143.00 12/09/18 06:00 WBC RBC Hgb Hct MCV MCH MCHC RDW Std Deviation RDW Coeff of Eva Plt Count MPV Immature Gran % (Auto) Neut % (Auto) Lymph % (Auto) [place] % (Auto) Eos % (Auto) Baso % (Auto) Absolute Neuts (auto) Absolute Lymphs (auto) Nucleated RBC % Sodium 135 L Potassium 4.1 Chloride 105 Carbon Dioxide 17.0 L BUN 62 H Creatinine 3.18 H Estim Creat Clear Calc 24.54 Est GFR (MDRD) Af Amer 26 L Est GFR (MDRD) Non-Af 22 L BUN/Creatinine Ratio 19.5 Glucose 222 H Calcium 8.1 L Phosphorus 4.2 Albumin 1.7 L Ur Random Sodium Urine Creatinine POC Glucose 12/09/18 12/09/18 12/08/18 11:26 06:24 22:31 POC Glucose 350 H 229 H 160 H 12/08/18 17:33 POC Glucose 213 H Clinical Impression(s) from Imaging Studies Chest X-Ray 12/08/18 17:55 IMPRESSION: 1. Moderate to severe cardiomegaly and moderate pulmonary edema. Electronically Signed: Willie Wilder, at 18:50 EDT Tel , Service support , Assessment/Plan All Active Problems (Last Reviewed 12/06/18 @ 15:57 by Butch Schmitz DO) Severe sepsis (Acute) Cellulitis of left lower extremity without foot (Acute) Cellulitis (Acute) Sepsis (Acute) Orthopnea (Acute) Chest pain (Acute) Acute diastolic (congestive) heart failure (Acute) H/O coronary artery bypass surgery (Resolved ~03/2014) GERD (gastroesophageal reflux disease) (Resolved) Severe sepsis (Resolved) 1. Acute on CKD stage III baseline creatinine 2.0 due to biopsy-proven diabetic nephropathy with nephrotic range proteinuria. Creatinine 2.57 on admission progressed to 3.22 improved to 3.18 today after his diuretics and ARB were discontinued with gentle hydration for a day. Spot urine sodium and creatinine ordered. Fena less than 1% to suggest prerenal event due to dehydration poor intake with recent severe cellulitis, sepsis syndrome. Continue to hold diuretics and ARB for now. Can continue to monitor renal function as outpatient follow-up with me in 1 to 2 weeks if discharged home next day or two. 2. Acute severe cellulitis left lower extremity improving with IV antibiotic therapy. Primary service management. Leukocytosis improving. Blood and urine culture no growth so far. 3. Diabetes mellitus type 2 with nephrotic range proteinuria will eventually need to go back on his ARB. 4. Hypertension with stable blood pressures 5. CAD status post CABG asymptomatic. 6. Mild shortness of breath however oxygenation is stable. Will resume Lasix without the metolazone prior to discharge. Hold diuretics for today. 7. Severe morbid obesity.
--- NOTE | 2018-12-09 16:42 | NURSING ---
PT CHECKED OWN BLOOD SUGAR WITH FREE STYLE SANDRA = 381
[2018-12-09] MEDS: Atorvastatin Calcium 40 MG Tablet PO (21:12)
[2018-12-09] MEDS: Acetaminophen 325 MG Tablet 650 MG PO (22:05)
[2018-12-10 02:40] VITALS: BP 142/70; PULSE 60; RESP 18; TEMP 36.2; O2SAT 95
[2018-12-10] MEDS: Heparin Injection (Vial) 5,000 UNIT/ML VIAL 5000 UNIT SC (06:02)
[2018-12-10] MEDS: 0.9% NaCl Peripheral Flush Adult/Peds IV ×2 (06:02→09:42)
[2018-12-10] MEDS: Cefazolin 1 GM/50 ML BAG IV (06:02)
[2018-12-10 07:00] VITALS: O2SAT 95
--- NOTE | 2018-12-10 07:34 | CPS ---
Pt declined aerosol because the inside of his mouth is very sore. This R.T. looked at his tongue and there is some white on the thickest part of his tongue so RFrancisco JavierT. asked SCOOTER Malloy, to take a look. pt is not receiving inhaled steroids but pt is afraid it was the aerosol that made his mouth sore.
[2018-12-10] MEDS: Insulin Lispro 100 UNIT/ML INSULN.PEN 50 UNIT SC (07:41)
[2018-12-10] MEDS: Insulin Lispro 100 UNIT/ML INSULN.PEN SC (07:42)
[2018-12-10] MEDS: Ferrous Sulfate 325 MG Tablet PO (07:44)
[2018-12-10] MEDS: Aspirin 81 MG TAB.CHEW PO (07:44)
[2018-12-10 08:19] LABS: Absolute Lymphocyte Count 0.95 X10^3/uL (0.83-4.51); Absolute Neutrophil Count 10.4 X10^3/uL (2.0-7.7); Basophil# 0.03 X10^3/uL; Basophil% 0.2 % (0-1); Eosinophil# 0.01 X10^3/uL; Eosinophils% 0.1 % (0-5); Hematocrit 39.1 % (40-54); Hemoglobin 13.5 g/dL (13.0-16.5); Lymphocyte # 0.95 X10^3/ul (4.0); Lymphocyte % 7.7 % (19-41); Mean Corp Hgb Conc 34.5 g/dL (32-36); Mean Corpuscular Hgb 30.2 pg (27.0-32.0); Mean Corpuscular Volume 87.5 fL (80-94); Mean Platelet Vol. 11.4 fl (6.2-12.0); Monocyte# 0.77 X10^3/uL; Monocyte% 6.2 % (0-10); NRBC Flagged by Analyzer 0 % (0-5); Neutrophil # 10.39 X10^3/uL (2.7-7.7); Neutrophil % 84.2 % (47-70); Platelet Count 179 K/mm3 (150-450); RBC Distribution Width SD 41.4 fl (35.1-43.9); Red Blood Count 4.47 M/mm3 (4.6-6.2); White Blood Count 12.4 K/mm3 (4.4-11.0)
[2018-12-10 08:28] LABS: Anion Gap 11 (5-15); BUN 73 mg/dL (7-18); BUN/Creat Ratio 24.3 RATIO (10-20); Calcium,Total 8.9 mg/dL (8.5-10.1); Chloride 103 mmol/L (98-107); Creatinine, Serum 3.01 mg/dL (0.70-1.30); EST Glomerular Filtration Rate 23 mL/min (>60); Est Glom Filt Rate - Afr Amer 28 mL/min (>60); Estimated Creatinine Clearance 25.93 ml/min; Glucose 161 mg/dL (74-106); Potassium 3.8 mmol/L (3.5-5.1); Sodium Level 136 mmol/L (136-145)
[2018-12-10 08:40] VITALS: BP 149/80; PULSE 61; RESP 18; TEMP 36.4; O2SAT 92
[2018-12-10 09:10] VITALS: BP 136/72
--- NOTE | 2018-12-10 09:17 | PCM.DC ---
- Discharge Diagnoses Current Active Problems: Current Active and Chronic Problems (Last Reviewed 12/06/18 @ 15:57 by Butch Schmitz DO) Severe sepsis (Acute) Cellulitis of left lower extremity without foot (Acute) Cellulitis (Acute) Sepsis (Acute) Reason(s) for Visit for Discharge Instructions: Leg swelling You will use the following diet at home:: Calorie/Carbohydrate Controlled (specify 1200, 1400, etc), Cardiac Your food should be the consistency of: Regular Your liquids should be the consistency of: Regular/Thin Discharge Activity: Return to Normal Activity Keep extremity elevated above heart level: Legs Additional Instructions: Complete your antibiotics. Continue to elevate your left leg when sitting down. Monitor for progression of left leg redness and swelling. Let your primary care doctor know if redness worsens. Continue to restrict your fluid intake to 1500mls per day. Follow a low salt, low fat, calorie restricted diet. You will need to repeat your blood work within a week. Follow-up with primary care doctor and artificial foliage arranger as scheduled. Allergies/Adverse Reactions: Allergies pravastatin sodium [From Pravachol] Adverse Reaction (Intermediate, Verified 10/28/18 11:21) muscle aches ACHY MUSCLES Medications to take at Discharge Aspirin [Aspirin, Baby] 81 mg PO DAILY@0800 10/16/15 Atorvastatin Calcium [Lipitor] 40 mg PO QHS 10/16/15 Carvedilol [Coreg (Beta Kody)] 25 mg PO BID 08/29/17 Omeprazole [Prilosec] 20 mg PO DAILY 08/29/17 amlodipine 5 mg tablet 10 mg PO QDAY tab 02/07/18 magnesium 400 mg (as magnesium oxide) capsule 400 mg PO DAILY 09/25/18 Bupropion HCl [Bupropion Xl] 150 mg PO DAILY 12/06/18 Ferrous Sulfate 325 mg PO BIDCM 12/06/18 Furosemide [Lasix] 80 mg PO BID 12/06/18 Insulin Regular, Human [Novolin R] 50 units SQ TIDCM 12/06/18 Potassium Chloride [K-Dur] 20 meq PO BID 12/06/18 Cephalexin [Keflex] 250 mg PO TID 5 Days #15 cap 12/10/18 Insulin Glargine [Lantus SoloStar Pen] 88 units SUBCUT BID pen 12/10/18 The following prescriptions were given: Cephalexin [Keflex] 250 mg PO TID 5 Days #15 cap Transmission Status: Pending to [id number] Primary Care Physician: Betty Farrell MD [Primary Care Provider] - Please follow up with your Primary Care Physician in: within 1-2 weeks Test Results: Test results from this visit will be discussed in further detail at your follow-up appointment, if applicable. Please Follow Up With: Catherine Raymundo DO When: within 1-2 weeks Proposed Discharge Date: 12/10/18
--- NOTE | 2018-12-10 09:35 | DS.PCM_ITS ---
Discharge Date and Diagnosis Date of Admission: 12/06/18 Date of Discharge: 12/10/18 - Primary Discharge Diagnosis Active and Suspected Problems (Last Reviewed 12/06/18 @ 15:57 by Butch Schmitz DO) Severe sepsis (Acute) Cellulitis of left lower extremity without foot (Acute) TALITA on CKD stage III/IV Acute hypoxic respiratory insufficiency Acute on chronic diastolic CHF/fluid overload, mild - Secondary Discharge Diagnosis Chronic Problems (Last Reviewed 12/06/18 @ 15:57 by Butch Schmitz DO) Chronic diastolic (congestive) heart failure (Chronic) Pure hypercholesterolemia (Chronic) Essential (primary) hypertension (Chronic) Dyspnea (Chronic) Left ventricular hypertrophy (Chronic) Secondary pulmonary arterial hypertension (Chronic) Atherosclerosis of coronary artery bypass graft without angina pectoris (Chronic) S/P CABG in 03/2014 with LOGAN to distal LAD, reverse SVG to first diagonal and second diagonal, obtuse marginal, and posterior descending artery; Lymphedema of left leg (Chronic) Morbid obesity (Chronic) Diabetes mellitus out of control (Chronic) Hospital Course and Treatment Imaging Results: Clinical Impression(s) from Imaging Studies Lower Extremity CT 12/07/18 15:56 IMPRESSION: There is subcutaneous edema and fluid as discussed. There is also a small joint effusion at the knee. Osteoarthritis of the knee No gross muscular abnormalities These findings can be seen with cellulitis. Without contrast is difficult to assess for an abscess. This study is limited due to the large field of view. It would be more beneficial to obtain an ultrasound of the focal area suspect for abscess. This could assess for increased vascularity and fluid collection. Enlarged lymph nodes in left inguinal region as discussed Individualized dose optimization techniques were used for this CT. at 2120 Reported and signed by: Destini Pandey DO Electronically Signed: Destini Pandey DO at 21:28 EDT Tel , Service support , Chest X-Ray 12/08/18 17:55 IMPRESSION: 1. Moderate to severe cardiomegaly and moderate pulmonary edema. Electronically Signed: iWllie Wilder, at 18:50 EDT Tel , Service support , Nephrology Operations: None Procedures: None Summary of Care Provided: 53-year-old male with past medical history of chronic left leg lymphedema, history of MRSA infection due to have external veins for previous bypass, who comes in with complaints of redness and discomfort in his lower extremities similar to his previous episodes of cellulitis. Patient's management has been as follows: 1. Acute hypoxic respiratory insufficiency likely secondary to acute on chronic diastolic CHF/fluid overload, resolved, patient was on 2 L nasal cannula oxygen. Oxygen at the time of discharge. Did not qualify for home oxygen Improved with use of incentive spirometer, breathing treatment, Lasix 2. Acute on chronic diastolic CHF/fluid overload, patient received IV fluids on arrival, his Lasix and metolazone were held Given couple of doses of IV Lasix with improvement, discharged on p.o. Lasix. Metolazone held until patient follows up with logistics program manager and Neurologist recommends resumption. 3. Severe sepsis secondary to left lower extremity cellulitis, cultures shows no growth in 48 hours, managed on IV vancomycin and cefazolin Discharged on 5 days of Keflex to complete 7 days of antibiotics 4. Left lower extremity cellulitis, posterior leg/ fluctuance on exam, CT scan of the lower extremity was negative for obvious acute abscess. Management as #3. 5. TALITA on CKD stage IV, prerenal, likely from cardiorenal/sepsis/ vancomycin effect on kidneys Creatinine improved with initial withholding of Lasix, metolazone and Lisinopril Nephrology consulted. Patient was taking of IV fluids and resumed on Lasix with acute on chronic CHF. He was discharged without losartan and metolazone. He will see his primary care doctor as well as his logistics program manager within a week 5. 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 Hypertension, continue on home amlodipine, and carvedilol. Losartan was held on account of TALITA. 7. Super morbid obesity, BMI 56.0 kg, lifestyle modification recommended Subjective: On the day of discharge, patient was seen and examined. Denied any new complaints. He feels much improved. Off oxygen Objective: Physical Exam General: Alert, Cooperative, No apparent distress, Well developed, Well nourished, morbidly obese HEENT: Atraumatic, Normocephalic Oral: Moist Mucosa, Dry Mucosa Neck: No Nodes, Thyroid Normal Size and Texture Lungs: Clear to auscultation, Normal air movement, No rhonchi, No wheeze, No rales Cardiovascular: Regular rate, Regular Rhythm, Normal S1, Normal S2, No murmurs Abdomen: Bowel Sounds Present, Soft, Non Tender, Non-Distended, Obese Extremities: Left calf Tenderness, - - Lymphedema in the left lower extremity no weeping wounds. Skin: - -Left lower leg remains swollen, less erythematous and warm to touch Musculoskeletal: No Tenderness to Palpation of Joints or Extremities Neurological: Sensory exam intact to light touch and pain, - - No clonus Psych/Mental Status: Normal Affect, Appropriate - Physical Exam Vital Signs Temp Pulse Resp BP Pulse Ox 97.6 F L 61 18 136/72 H 92 12/10/18 08:40 12/10/18 08:40 12/10/18 08:40 12/10/18 09:10 12/10/18 08:40 Oxygen Flow Rate (L/min) 2 Oxygen Delivery Method Room Air Weight: 162.3 kg Body Mass Index (BMI) 56.0 Intake and Output for Last 24 Hours 12/08/18 12/09/18 12/10/18 23:59 23:59 23:59 Intake Total 3241.00 / 3241.00 4672.08 / 4672.08 550 / 550 Output Total 750 / 750 1850 / 1850 Balance 2491.00 / 2491.00 2822.08 / 2822.08 550 / 550 Microbiology Past 72 Hours 12/06/18 14:56 Blood Culture - Preliminary Blood Culture (Wb) - Arm Left No growth in 48 hours. 12/06/18 14:30 Blood Culture - Preliminary Blood Culture (Wb) - Right Hand No growth in 48 hours. 12/06/18 18:00 Urine Culture - Final Urine, Clean Catch Culture exhibits no growth. Laboratory Tests Past 24 Hrs 12/10/18 12/10/18 08:00 08:00 WBC 12.4 H RBC 4.47 L Hgb 13.5 Hct 39.1 L MCV 87.5 MCH 30.2 MCHC 34.5 RDW Std Deviation 41.4 RDW Coeff of Eva 13.0 Plt Count 179 MPV 11.4 Immature Gran % (Auto) 1.600 H Neut % (Auto) 84.2 H Lymph % (Auto) 7.7 L [place] % (Auto) 6.2 Eos % (Auto) 0.1 Baso % (Auto) 0.2 Absolute Neuts (auto) 10.4 H Absolute Lymphs (auto) 0.95 Nucleated RBC % 0 Sodium 136 Potassium 3.8 Chloride 103 Carbon Dioxide 22.0 Anion Gap 11 BUN 73 H Creatinine 3.01 H Estim Creat Clear Calc 25.93 Est GFR (MDRD) Af Amer 28 L Est GFR (MDRD) Non-Af 23 L BUN/Creatinine Ratio 24.3 H Glucose 161 H Calcium 8.9 POC Glucose 12/09/18 11:26 POC Glucose 350 H Discharge Diet: Low fat/ Low Cholesterol, 2000 mg Sodium Diet, Carb Control Diet Discharge Activity: Return to Normal Activity Keep extremity elevated above heart level: Legs Home Medications: Medications to take at Discharge Aspirin [Aspirin, Baby] 81 mg PO DAILY@0800 10/16/15 Atorvastatin Calcium [Lipitor] 40 mg PO QHS 10/16/15 Carvedilol [Coreg (Beta Kody)] 25 mg PO BID 08/29/17 Omeprazole [Prilosec] 20 mg PO DAILY 08/29/17 amlodipine 5 mg tablet 10 mg PO QDAY tab 02/07/18 magnesium 400 mg (as magnesium oxide) capsule 400 mg PO DAILY 09/25/18 Bupropion HCl [Bupropion Xl] 150 mg PO DAILY 12/06/18 Ferrous Sulfate 325 mg PO BIDCM 12/06/18 Furosemide [Lasix] 80 mg PO BID 12/06/18 Insulin Regular, Human [Novolin R] 50 units SQ TIDCM 12/06/18 Potassium Chloride [K-Dur] 20 meq PO BID 12/06/18 Cephalexin [Keflex] 250 mg PO TID 5 Days #15 cap 12/10/18 Insulin Glargine [Lantus (BKC)] 84 units SUBCUT BID #1 pen 12/10/18 Following Prescrptions Were Given to Patient: Cephalexin [Keflex] 250 mg PO TID 5 Days #15 cap Transmission Status: Received by [id number] Insulin Glargine [Lantus (BKC)] 84 units SUBCUT BID #1 pen Transmission Status: Received by [id number] Primary Care Physician: Betty Farrell MD [Primary Care Provider] - Please follow up with your Primary Care Physician in: within 1-2 weeks Please Follow Up With: Catherine Raymundo DO When: within 1-2 weeks Disposition: Home Minutes spent on discharge:: 45 Patient Condition:: Stable Medical Necessity - Tobacco Use Smoking Status: Never smoker Tobacco Use: Non-smoker Meaningful Use Info Meaningful Use Diagnoses (Choose all that apply): CHF - CHF GEENA/ARB ordered at discharge?: No Reason GEENA/ARB not ordered?: Worsening renal dysfunctn Documented LVEF (%): 65 Code Visit Inpatient E&M: 67264 Disch Hosp
[2018-12-10] MEDS: Pantoprazole Sodium 20 MG Tablet PO (09:42)
[2018-12-10] MEDS: amLODIPine 10 MG Tablet PO (09:42)
[2018-12-10] MEDS: Furosemide 20 MG/2 ML VIAL IV (09:42)
[2018-12-10] MEDS: buPROPion (XL) 150 MG TABLET.XL PO (09:42)
[2018-12-10] MEDS: Magnesium Oxide 400 MG Tablet PO (09:43)
[2018-12-10] MEDS: Carvedilol 25 MG Tablet PO (09:43)
[2018-12-10 09:50] VITALS: PULSE 64
[2018-12-10 11:07] VITALS: BP 149/71; PULSE 63; RESP 18; TEMP 36.4; O2SAT 92
--- NOTE | 2018-12-11 15:39 | CASEMGMT ---
RN RODOLFO DC PHONE CALL DC DATE: 12/10/18 DC Disposition: Home Diagnosis on Discharge: Sepsis, Cellulitis LLE LACE/STRATA:13 Intro role of CM to patient. Pt states he is doing well, has prescriptions and no questions re: medication, f/u or instructions. No care improvement suggestions given. Shorty SAUCEDON RN ACM
== END 2018-12-10 11:25 | disposition home or self-care (01) | DRG 871 ==
LOC: ED 14:41 → MS3 16:05
PROVIDERS: Internal Medicine Nephrology; Emergency Provider Emergency Medicine; Family Provider Internal Medicine; PCP Internal Medicine; Visit Provider Internal Medicine
DX: A41.9 Sepsis, unspecified organism (principal); I50.33 Acute on chronic diastolic (congestive) heart failure; L03.116 Cellulitis of left lower limb; Z68.43 Body mass index [BMI] 50.0-59.9, adult; I13.0 Hypertensive heart and chronic kidney disease with heart failure and stage 1 through stage 4 chronic kidney disease, or unspecified chronic kidney disease; N18.4 Chronic kidney disease, stage 4 (severe); N17.9 Acute kidney failure, unspecified; R65.20 Severe sepsis without septic shock; E11.22 Type 2 diabetes mellitus with diabetic chronic kidney disease; E66.01 Morbid (severe) obesity due to excess calories; E11.40 Type 2 diabetes mellitus with diabetic neuropathy, unspecified; I25.10 Atherosclerotic heart disease of native coronary artery without angina pectoris; Z86.14 Personal history of Methicillin resistant Staphylococcus aureus infection; R09.02 Hypoxemia; R06.89 Other abnormalities of breathing; E78.00 Pure hypercholesterolemia, unspecified; I89.0 Lymphedema, not elsewhere classified; Z79.4 Long term (current) use of insulin; Z95.1 Presence of aortocoronary bypass graft
CPT/HCPCS: 36415; 71045; 73700; 80048; 80053; 80069; 80202; 81001; 82570; 82962; 83605; 84300; 85025; 85610; 85730; 87040; 87086; 93005; 93971; 94640; 99285; J7030; J7040; J7050; A4216; J1940; J2405

== ENCOUNTER → 2018-12-27 13:31 | Outpatient (CLI) | payer OTHER, MEDICARE, SELFPAY ==
[2018-12-22 08:49] VITALS: BMI 54.5
[2018-12-27 15:02] LABS: Albumin, Serum 2.4 g/dL (3.2-5.0); BUN 30 mg/dL (7-18); BUN/Creat Ratio 13.5 RATIO (10-20); Calcium,Total 8.9 mg/dL (8.5-10.1); Chloride 106 mmol/L (98-107); Creatinine, Serum 2.23 mg/dL (0.70-1.30); EST Glomerular Filtration Rate 33 mL/min (>60); Est Glom Filt Rate - Afr Amer 39 mL/min (>60); Glucose 122 mg/dL (74-106); Phosphorus 3.6 mg/dL (2.5-4.9); Potassium 4.1 mmol/L (3.5-5.1); Sodium Level 135 mmol/L (136-145)
[2018-12-27 15:08] LABS: PTHIN 144.5 pg/mL (18.4-80.1)
== END ==
PROVIDERS: Family Provider Internal Medicine; PCP Internal Medicine; Referring Provider Internal Medicine Nephrology; Visit Provider Internal Medicine Nephrology
DX: N18.3 Chronic kidney disease, stage 3 (moderate) (principal); N25.81 Secondary hyperparathyroidism of renal origin
CPT/HCPCS: 36415; 80069; 83970

== ENCOUNTER → 2019-02-19 08:27 | Outpatient (CLI) | payer OTHER, MEDICARE, SELFPAY ==
[2018-12-22 08:49] VITALS: BMI 54.5
[2019-02-19 08:53] LABS: Hematocrit 43.6 % (40-54); Hemoglobin 14.3 g/dL (13.0-16.5); Mean Corp Hgb Conc 32.8 g/dL (32-36); Mean Corpuscular Hgb 29.2 pg (27.0-32.0); Mean Corpuscular Volume 89.2 fL (80-94); Mean Platelet Vol. 9.8 fl (6.2-12.0); Platelet Count 236 K/mm3 (150-450); RBC Distribution Width CV 13.5 % (11.6-14.6); Red Blood Count 4.89 M/mm3 (4.6-6.2); White Blood Count 7.7 K/mm3 (4.4-11.0)
[2019-02-19 09:25] LABS: Albumin, Serum 2.4 g/dL (3.2-5.0); BUN 28 mg/dL (7-18); BUN/Creat Ratio 14.4 RATIO (10-20); Calcium,Total 8.9 mg/dL (8.5-10.1); Chloride 107 mmol/L (98-107); Creatinine, Serum 1.94 mg/dL (0.70-1.30); EST Glomerular Filtration Rate 38 mL/min (>60); Est Glom Filt Rate - Afr Amer 46 mL/min (>60); Glucose 234 mg/dL (74-106); Potassium 4.3 mmol/L (3.5-5.1); Sodium Level 137 mmol/L (136-145)
[2019-02-19 11:05] LABS: PTHIN 134.3 pg/mL (18.4-80.1)
== END ==
LOC: LAB.FUTURE 08:30 → LAB 08:35
PROVIDERS: Family Provider Internal Medicine; PCP Internal Medicine; Referring Provider Internal Medicine Nephrology; Visit Provider Internal Medicine Nephrology
DX: N18.3 Chronic kidney disease, stage 3 (moderate) (principal); N25.81 Secondary hyperparathyroidism of renal origin
CPT/HCPCS: 36415; 80069; 83970; 85027

== ENCOUNTER 2019-04-04 09:56 | Inpatient (IN) | payer OTHER, MEDICARE, SELFPAY ==
[2018-12-22 08:49] VITALS: BMI 54.5
[2019-04-04 09:57] VITALS: BP 163/84; PULSE 82; RESP 17; TEMP 36.6; O2SAT 94; BMI 55.4
--- NOTE | 2019-04-04 10:18 | ED.DCSUM_ITS ---
History of Present Illness Chief Complaint: Cellulitis Informant: Patient Onset: Days Context: Gradual Onset Current Severity: Moderate Maximum Severity: Moderate Narrative: Patient presents with recurrent cellulitis of the left lower leg. He states he noted a few sores on his leg a couple days ago but did not think much of it. Yesterday he became more ill with fever up to 101, nausea, vomiting, and increased redness in his left leg. He does have lymphangitic streak up the inside of his left thigh. No open wounds are noted. Patient was last admitted in December for similar. - Past Medical History (1) Atherosclerosis of coronary artery bypass graft without angina pectoris Status: Chronic Comment: S/P CABG in 03/2014 with LOGAN to distal LAD, reverse SVG to first diagonal and second diagonal, obtuse marginal, and posterior descending artery; (2) Chronic diastolic (congestive) heart failure Status: Chronic (3) Diabetes mellitus out of control Status: Chronic (4) Essential (primary) hypertension Status: Chronic (5) Lymphedema of left leg Status: Chronic (6) Pure hypercholesterolemia Status: Chronic (7) Secondary pulmonary arterial hypertension Status: Chronic (8) H/O coronary artery bypass surgery Status: Resolved Comment: S/P CABG in 03/2014 with LOGAN to distal LAD, reverse SVG to first diagonal and second diagonal, obtuse marginal, and posterior descending artery at [place]; Past Medical History - Allergies and Home Meds Allergies/Adverse Reactions: Allergies pravastatin sodium [From Pravachol] Adverse Reaction (Intermediate, Verified 04/04/19 09:57) muscle aches ACHY MUSCLES Primary Care Physician: Betty Farrell MD [Primary Care Provider] - Prior records reviewed: Yes Surgical History: coronary bypass surgery, - - Patient underwent coronary stent placement in 2008. He underwent coronary revascularization in March 2014, at which time 5 coronary bypass grafts were performed. Patient has a history of right groin wound debridement for MRSA. Lives: Spouse/ Significant Other Smoking Status: Never smoker - Family History Paternal Family History: Family History (Last Reviewed 12/06/18 @ 15:58 by Butch Schmitz DO) Father Hypertension Family History: Reports: Hypertension Maternal Family History: Family History (Last Reviewed 12/06/18 @ 15:58 by Butch Schmitz DO) Father Hypertension Family History: Reports: Cancer - brain, Seizures Review of Systems General: Reports: Fever Eyes: Denies: Visual changes - bilaterally ENT: Denies: Bilateral ear pain Cardiovascular: Denies: Chest pain Respiratory: Denies: Dyspnea, Cough Gastrointestinal: Reports: Nausea, Vomiting. Denies: Abdominal pain Genitourinary: Denies: Dysuria Musculoskeletal: Reports: Swelling, Extremity Pain Skin: Reports: - - Cellulitis Neurological: Denies: Headache Allergy: Denies: Uticaria Physical Exam Vital Signs/Narrative: Vital Signs Temp Pulse Resp BP Pulse Ox 04/04/19 09:57 97.8 F 82 17 163/84 H 94 Inital Vital Signs reviewed: Yes General: Well nourished, Well developed Head: Normocephalic ENT: Moist mucous membranes Neck: Supple Cardiovascular: Regular rate, Regular rhythm Respiratory: No distress, CTA bilaterally Abdomen: Soft, Nontender, Nondistended Extremities: - - Erythema and edema to the left lower leg. No open wounds noted. Lymphangitic streak is noted up the medial left thigh. Neurological: Alert, Oriented x3 Psychological: Normal affect Diagnostic/Tx/Re-eval Laboratory Results 04/04/19 04/04/19 04/04/19 10:28 10:28 10:28 WBC 16.5 H RBC 4.86 Hgb 13.8 Hct 42.6 MCV 87.7 MCH 28.4 MCHC 32.4 RDW Std Deviation 42.5 RDW Coeff of Eva 13.4 Plt Count 188 MPV 9.9 Immature Gran % (Auto) 0.800 Neut % (Auto) 85.8 H Lymph % (Auto) 6.7 L [place] % (Auto) 6.2 Eos % (Auto) 0.2 Baso % (Auto) 0.3 Absolute Neuts (auto) 14.2 H Absolute Lymphs (auto) 1.10 Nucleated RBC % 0 Sodium 132 L Potassium 3.9 Chloride 101 Carbon Dioxide 21.0 Anion Gap 10 BUN 33 H Creatinine 2.78 H Estim Creat Clear Calc 28.07 Est GFR (MDRD) Af Amer 31 L Est GFR (MDRD) Non-Af 25 L BUN/Creatinine Ratio 11.9 Glucose 203 H Lactic Acid 1.7 Calcium 8.2 L - Medical Decision Making Patient was given IV fluids along with Zosyn and vancomycin. Renal function is worsened from baseline and white count is significantly elevated. Patient does have a large area of skin involvement with lymphangitic streaking. He has had problems with sepsis from cellulitis in the past. I feel he would be better served for IV antibiotics at least overnight. I will speak with the hospitalist. ED Disposition - Plan for ED Patient: Disposition: Acute Care Hospital [facility] Diagnosis: Cellulitis of left leg Referrals: Betty Farrell MD [Primary Care Provider] -
[2019-04-04 10:37] LABS: Absolute Neutrophil Count 14.2 X10^3/uL (2.0-7.7); Basophil# 0.05 X10^3/uL; Basophil% 0.3 % (0-1); Eosinophil# 0.03 X10^3/uL; Eosinophils% 0.2 % (0-5); Hematocrit 42.6 % (40-54); Hemoglobin 13.8 g/dL (13.0-16.5); Lymphocyte % 6.7 % (19-41); Mean Corp Hgb Conc 32.4 g/dL (32-36); Mean Corpuscular Hgb 28.4 pg (27.0-32.0); Mean Corpuscular Volume 87.7 fL (80-94); Mean Platelet Vol. 9.9 fl (6.2-12.0); Monocyte# 1.02 X10^3/uL; Monocyte% 6.2 % (0-10); NRBC Flagged by Analyzer 0 % (0-5); Neutrophil # 14.19 X10^3/uL (2.7-7.7); Neutrophil % 85.8 % (47-70); Platelet Count 188 K/mm3 (150-450); RBC Distribution Width CV 13.4 % (11.6-14.6); RBC Distribution Width SD 42.5 fl (35.1-43.9); Red Blood Count 4.86 M/mm3 (4.6-6.2); White Blood Count 16.5 K/mm3 (4.4-11.0)
[2019-04-04 10:48] LABS: Anion Gap 10 (5-15); BUN 33 mg/dL (7-18); BUN/Creat Ratio 11.9 RATIO (10-20); Calcium,Total 8.2 mg/dL (8.5-10.1); Chloride 101 mmol/L (98-107); Creatinine, Serum 2.78 mg/dL (0.70-1.30); EST Glomerular Filtration Rate 25 mL/min (>60); Est Glom Filt Rate - Afr Amer 31 mL/min (>60); Estimated Creatinine Clearance 28.07 ml/min; Glucose 203 mg/dL (74-106); Potassium 3.9 mmol/L (3.5-5.1); Sodium Level 132 mmol/L (136-145)
[2019-04-04 10:57] LABS: Lactic Acid 1.7 mmol/L (0.4-1.9)
[2019-04-04] MEDS: 0.9% Normal Saline 1,000 ML 150 ML IV (11:14)
[2019-04-04 11:22] VITALS: BP 135/64; PULSE 68; RESP 18; TEMP 36.6; O2SAT 94
--- NOTE | 2019-04-04 11:22 | HP.PCM_ITS ---
Problem List (1) Cellulitis of left lower extremity without foot Status: Acute (2) Cellulitis Status: Acute (3) Sepsis Status: Acute (4) Chronic diastolic (congestive) heart failure Status: Chronic (5) Pure hypercholesterolemia Status: Chronic (6) Essential (primary) hypertension Status: Chronic (7) Orthopnea Status: Acute (8) Dyspnea Status: Chronic Qualifiers: Dyspnea type: dyspnea on exertion Qualified Code(s): R06.09 - Other forms of dyspnea (9) Chest pain Status: Acute (10) Acute diastolic (congestive) heart failure Status: Acute (11) Left ventricular hypertrophy Status: Chronic (12) Secondary pulmonary arterial hypertension Status: Chronic (13) Atherosclerosis of coronary artery bypass graft without angina pectoris Status: Chronic Qualifiers: [place] vs. transplanted heart: [place] heart Qualified Code(s): I25.810 - Atherosclerosis of coronary artery bypass graft(s) without angina pectoris Comment: S/P CABG in 03/2014 with LOGAN to distal LAD, reverse SVG to first diagonal and second diagonal, obtuse marginal, and posterior descending artery; (14) H/O coronary artery bypass surgery Status: Resolved Comment: S/P CABG in 03/2014 with LOGAN to distal LAD, reverse SVG to first diagonal and second diagonal, obtuse marginal, and posterior descending artery at [place]; (15) Lymphedema of left leg Status: Chronic (16) Morbid obesity Status: Chronic (17) Diabetes mellitus out of control Status: Chronic History of Present Illness Date of Admission: 04/04/19 Chief Complaint: Left leg cellulitis The patient is a 53 year old M with history of recurrent flatness of left lower leg with lymphedema after he had vein harvest from left leg for coronary artery bypass in 2013 came to ER with left leg swelling, redness, fever and chills for 2 to 3 days. This started with redness in the left leg, with lymphangitic streak up inside of his left thigh. At home his temperature was 101, nausea, vomiting and generalized malaise. The patient has history of MRSA infection. The patient was last admitted between 12/06 to 12/10 for severe sepsis secondary to cellulitis of left lower extremity and TALITA on CKD stage III/IV In ED, temperature 97.8 Fahrenheit, no tachycardia. Blood pressure stable 149/71 with no tachypnea or hypoxia. Leukocytosis 16.5 thousand with left shift. Sodium 132, BUN/creatinine 33/2.78. Glucose 203. Lactic acid 1.7. Patient got 1 dose of vancomycin and Zosyn in ER and admitted. Past Medical History Past Medical History (Chronic Problems): Chronic Problems (Last Reviewed 12/06/18 @ 15:57 by Butch Schmitz DO) Chronic diastolic (congestive) heart failure (Chronic) Pure hypercholesterolemia (Chronic) Essential (primary) hypertension (Chronic) Dyspnea (Chronic) Left ventricular hypertrophy (Chronic) Secondary pulmonary arterial hypertension (Chronic) Atherosclerosis of coronary artery bypass graft without angina pectoris (Chronic) S/P CABG in 03/2014 with LOGAN to distal LAD, reverse SVG to first diagonal and second diagonal, obtuse marginal, and posterior descending artery; Lymphedema of left leg (Chronic) Morbid obesity (Chronic) Diabetes mellitus out of control (Chronic) Medical History: Medical History (Last Reviewed 12/06/18 @ 15:57 by Butch Schmitz DO) Chronic diastolic (congestive) heart failure (Chronic) I50.32 Pure hypercholesterolemia (Chronic) E78.00 Essential (primary) hypertension (Chronic) I10 Orthopnea (Acute) R06.01 Dyspnea (Chronic) R06.00 Chest pain (Acute) R07.9 Acute diastolic (congestive) heart failure (Acute) I50.31 Left ventricular hypertrophy (Chronic) I51.7 Secondary pulmonary arterial hypertension (Chronic) I27.21 Atherosclerosis of coronary artery bypass graft without angina pectoris (Chronic) I25.810 S/P CABG in 03/2014 with LOGAN to distal LAD, reverse SVG to first diagonal and second diagonal, obtuse marginal, and posterior descending artery; Lymphedema of left leg (Chronic) I89.0 Morbid obesity (Chronic) E66.01 Diabetes mellitus out of control (Chronic) E11.65 Anemia D64.9 CKD (chronic kidney disease) stage 2, GFR 60-89 ml/min N18.2 GERD (gastroesophageal reflux disease) K21.9 Morbid obesity E66.01 MELODIE (obstructive sleep apnea) G47.33 Old myocardial infarction I25.2 Prostatism N40.0 Type 2 diabetes mellitus E11.9 History of MRSA infection Z86.14 Right groin debridement Left leg cellulitis (Inactive) L03.116 Allergies pravastatin sodium [From Pravachol] Adverse Reaction (Intermediate, Verified 04/04/19 09:57) muscle aches ACHY MUSCLES Home Medications: Ambulatory Orders Medication Instructions Recorded Aspirin [Aspirin, Baby] 81 mg PO DAILY@0800 10/16/15 Atorvastatin Calcium [Lipitor] 40 mg PO QHS 10/16/15 Carvedilol [Coreg (Beta Kdoy)] 25 mg PO BID 08/29/17 Omeprazole [Prilosec] 20 mg PO DAILY 08/29/17 amlodipine 5 mg tablet 10 mg PO QDAY tab 02/07/18 Bupropion HCl [Bupropion Xl] 300 mg PO DAILY 12/06/18 Furosemide [Lasix] 80 mg PO BID 12/06/18 Potassium Chloride [K-Dur] 20 meq PO BID 12/06/18 Insulin Glargine [Lantus (BKC)] 80 units SUBCUT BID 04/04/19 Insulin Lispro [Humalog KwikPen] 30 - 50 unit SQ TIDCM 04/04/19 Losartan Potassium 100 mg PO DAILY 04/04/19 Surgical History: Surgical History (Last Reviewed 12/06/18 @ 15:57 by Butch Schmitz DO) H/O coronary artery bypass surgery (Resolved) Onset Date: ~03/2014 Z95.1 S/P CABG in 03/2014 with LOGAN to distal LAD, reverse SVG to first diagonal and second diagonal, obtuse marginal, and posterior descending artery at [place]; History of coronary artery stent placement Z95.5 PCI-Syent -[id number] History of incision and drainage Z98.890 right groin, MRSA History of open reduction and internal fixation (ORIF) procedure Z98.890 History of tonsillectomy Z90.89 Surgical History: coronary bypass surgery, - - Patient underwent coronary stent placement in 2008. He underwent coronary revascularization in March 2014, at which time 5 coronary bypass grafts were performed. Patient has a history of right groin wound debridement for MRSA. Psychiatric History: No pertinent psych hx Lives: Spouse/ Significant Other Smoking Status: Never smoker - *Family History Paternal Family History: Family History (Last Reviewed 12/06/18 @ 15:58 by Butch Schmitz DO) Father Hypertension History Items: Hypertension Maternal Family History: Family History (Last Reviewed 12/06/18 @ 15:58 by Butch Schmitz DO) Father Hypertension History Items: Cancer - brain, Seizures Review of Systems Constitutional: Reports: Chills, Fever, Malaise, Weakness, Fatigue HEENT: Denies: Head Aches, Sinus Congestion, Sinus Drainage Cardiovascular: Reports: Edema. Denies: Chest Pain, Chest Pressure, Chest Tightness, Palpitations Respiratory: Denies: Cough, Shortness of breath at rest, Sputum production Gastrointestinal: Denies: Abdominal Pain, Nausea, Vomiting Genitourinary: Denies: Dysuria, Frequency, Hesitancy, Nocturia, Retention, Urgency Musculoskeletal: Reports: Joint Pain. Denies: Joint Tenderness Skin: Denies: Rash, Wounds Neurological: Denies: Focal weakness, Numbness, Tingling Psychiatric: Denies: Anxiety, Depression, Homicidal Ideations, Suicidal Ideations Hematologic/ Lymphatic: Denies: Easy Bruising, Easy Bleeding VTE Information - Inpt Only VTE Present on Admission: No VTE Mechan Device Prophylaxis: None VTE Pharm Prophylaxis ordered?: Yes - Physical Exam Vitals/I&O's: Vital Signs Temp Pulse Resp BP Pulse Ox 97.8 F 82 17 163/84 H 94 04/04/19 09:57 04/04/19 09:57 04/04/19 09:57 04/04/19 09:57 04/04/19 09:57 Oxygen Delivery Method Room Air Weight: 354 lb 0.998 oz Body Mass Index (BMI) 55.4 General: Alert, Oriented x3, Cooperative HEENT: Atraumatic, PERRLA, EOMI, Normocephalic Neck: Supple, No JVD, Negative Carotid Bruits Lungs: Clear to auscultation, No rhonchi, No wheeze, No rales, Diminished Cardiovascular: Regular rate, Regular Rhythm, Normal S1, Normal S2, No murmurs Abdomen: Bowel Sounds Present, Soft, Non Tender, Non-Distended Extremities: No edema, Capillary Refill Less than 3 Seconds Skin: No rashes, No breakdown, Rash Present - Diffuse redness, tenderness or induration present over left leg from left foot goes above knee. Patient also h as lymphangitic streak going up to left upper thigh. Musculoskeletal: No Tenderness to Palpation of Joints or Extremities, Arthritic Changes Neurological: Cranial nerves II-XII grossly intact Psych/Mental Status: Normal Affect, Appropriate Laboratory Results 04/04/19 10:28: WBC 16.5 H, RBC 4.86, Hgb 13.8, Hct 42.6, MCV 87.7, MCH 28.4, MCHC 32.4, RDW Std Deviation 42.5, RDW Coeff of Eva 13.4, Plt Count 188, MPV 9.9, Immature Gran % (Auto) 0.800, Neut % (Auto) 85.8 H, Lymph % (Auto) 6.7 L, [place] % (Auto) 6.2, Eos % (Auto) 0.2, Baso % (Auto) 0.3, Absolute Neuts (auto) 14.2 H, Absolute Lymphs (auto) 1.10, Nucleated RBC % 0 04/04/19 10:28: Sodium 132 L, Potassium 3.9, Chloride 101, Carbon Dioxide 21.0, Anion Gap 10, BUN 33 H, Creatinine 2.78 H, Estim Creat Clear Calc 28.07, Est GFR (MDRD) Af Amer 31 L, Est GFR (MDRD) Non-Af 25 L, BUN/Creatinine Ratio 11.9, Glucose 203 H, Calcium 8.2 L 04/04/19 10:28: Lactic Acid 1.7 Current Medications Sodium Chloride () 1,000 mls @ 150 mls/hr IV .[id number] JOANA Last Admin: 04/04/19 11:14 Dose: 150 mls/hr Documented by: Vancomycin HCl 2,000 mg/ (Sodium Chloride) 540 mls @ 250 mls/hr IV X1 ONE Stop: 04/04/19 12:39 Assessment/Plan All Active Problems (Last Reviewed 12/06/18 @ 15:57 by Butch Schmitz DO) Cellulitis of left lower extremity without foot (Acute) Cellulitis (Acute) Sepsis (Acute) Orthopnea (Acute) Chest pain (Acute) Acute diastolic (congestive) heart failure (Acute) H/O coronary artery bypass surgery (Resolved ~03/2014) GERD (gastroesophageal reflux disease) (Resolved) Severe sepsis (Resolved) The patient is a 53 year old M with history of recurrent flatness of left lower leg with lymphedema after he had vein harvest from left leg for coronary artery bypass in 2013 came to ER with left leg swelling, redness, fever and chills for 2 to 3 days. This started with redness in the left leg, with lymphangitic streak up inside of his left thigh. At home his temperature was 101, nausea, vomiting and generalized malaise. The patient has history of MRSA infection. The patient was last admitted between 12/06 to 12/10 for severe sepsis secondary to cellulitis of left lower extremity and TALITA on CKD stage III/IV In ED, temperature 97.8 Fahrenheit, no tachycardia. Blood pressure stable 149/71 with no tachypnea or hypoxia. Leukocytosis 16.5 thousand with left shift. Sodium 132, BUN/creatinine 33/2.78. Glucose 203. Lactic acid 1.7. Patient got 1 dose of vancomycin and Zosyn in ER and admitted. 1. Sepsis secondary to left lower extremity cellulitis: Patient is being admitted on [facility] floor. As patient is history of MRSA, will continue vancomycin. Ceftriaxone is added for gram-negative coverage. Venous Doppler ordered to rule out DVT. Patient denies any previous history of DVT/PE. IV fluid normal saline at 100 mL/h for 1 L and then reevaluate. 2. Coronary artery disease status post CABG, dyslipidemia and chronic diastolic CH: We will watch out for fluid overload. Resume Lasix and metolazone from tomorrow a.m. 3. CKD stage IV, likely from cardiorenal/diuretics: Patient has a history of acute kidney injury on CKD during previous admission. Monitor Vanco level. Monitor kidney function, intake and output, and electrolytes. 4. Type II DM with diabetic nephropathy: Patient had hyperglycemia, glucose 203. Accu-Cheks before meals and at bedtime and cover with Humalog sliding scale. Resume patient home dose of Lantus and lispro. 5. Hypertension, continue on home amlodipine, and carvedilol. 6. DVT prophylaxis with super morbid obesity, BMI 56.0 kg, lifestyle modification recommended. Eliquis 2.5 mg twice daily for DVT prophylaxis Laboratory Results 04/04/19 10:28: WBC 16.5 H, RBC 4.86, Hgb 13.8, Hct 42.6, MCV 87.7, MCH 28.4, MCHC 32.4, RDW Std Deviation 42.5, RDW Coeff of Eva 13.4, Plt Count 188, MPV 9.9, Immature Gran % (Auto) 0.800, Neut % (Auto) 85.8 H, Lymph % (Auto) 6.7 L, [place] % (Auto) 6.2, Eos % (Auto) 0.2, Baso % (Auto) 0.3, Absolute Neuts (auto) 14.2 H, Absolute Lymphs (auto) 1.10, Nucleated RBC % 0 04/04/19 10:28: Sodium 132 L, Potassium 3.9, Chloride 101, Carbon Dioxide 21.0, Anion Gap 10, BUN 33 H, Creatinine 2.78 H, Estim Creat Clear Calc 28.07, Est GFR (MDRD) Af Amer 31 L, Est GFR (MDRD) Non-Af 25 L, BUN/Creatinine Ratio 11.9, Glucose 203 H, Calcium 8.2 L 04/04/19 10:28: Lactic Acid 1.7 Code Visit Inpatient E&M: 51158 Init Hosp L3
--- NOTE | 2019-04-04 11:22 | NURSING ---
DR GODINEZ FOR DR BARAJAS
--- NOTE | 2019-04-04 11:31 | NURSING ---
301 GRETCHEN ALLEN CELLULITIS
[2019-04-04 12:14] VITALS: BMI 55.3
[2019-04-04 12:20] VITALS: BMI 55.3
[2019-04-04 12:29] VITALS: BP 113/62; PULSE 70; RESP 18; TEMP 36.6; O2SAT 95
--- NOTE | 2019-04-04 12:46 | VDLE_ITS ---
Reason For Study: pain RIGHT LEFT GSV is normal. CFV is compressible, spontaneous, phasic, CFV is compressible, spontaneous, phasic, competent, and demonstrates normal competent and demonstrates normal augmentation. augmentation. FV is compressible, spontaneous, phasic, FV is compressible, spontaneous, phasic, competent and demonstrates normal competent and demonstrates normal augmentation. augmentation. POP V is compressible, spontaneous, phasic, POP V is compressible, spontaneous, phasic, competent and demonstrates normal competent and demonstrates normal augmentation. augmentation. T/P Trunk is compressible. T/P Trunk is compressible. PTV is compressible. PTV is compressible. LT PerV is compressible. RT PerV is compressible. GSV is harvested. Procedure Exam performed portable in patient room. The exam was of fair technical quality due to pt body habitus and swelling. Limited views of veins on the LLE due to pt body habitus and edema. A preliminary report was called and/or faxed to the pt's RN. Interpretation Summary No evidence for acute deep venous thrombosis bilateral lower extremities Patent and compressible right great saphenous vein Surgically harvested left great saphenous vein Examination of fair technical quality secondary to body habitus and swelling with limitations as noted. Ordering Physician: Jesus Yang Performed By: Jonathan Angel RVT
--- NOTE | 2019-04-04 13:32 | PCM.RX.CS ---
Consult Pharmacy has been consulted to manage selected antiobiotic: Vancomycin Type of Consult: New start Suspected Infection: Skin/Soft tissue Prior Doses of Antibiotics Received/Current Regimen: VANCOMYCIN 2000MG IV X1 administered in ED 04/04/19 @1147 Labs: Sodium 132 mmol/L (136-145) L 04/04/19 10:28 Potassium 3.9 mmol/L (3.5-5.1) 04/04/19 10:28 Chloride 101 mmol/L (98-107) 04/04/19 10:28 Carbon Dioxide 21.0 mmol/L (21.0-32.0) 04/04/19 10:28 Anion Gap 10 (5-15) 04/04/19 10:28 BUN 33 mg/dL (7-18) H 04/04/19 10:28 Creatinine 2.78 mg/dL (0.70-1.30) H 04/04/19 10:28 Est GFR (MDRD) Af Amer 31 mL/min (>60) L 04/04/19 10:28 Est GFR (MDRD) Non-Af 25 mL/min (>60) L 04/04/19 10:28 BUN/Creatinine Ratio 11.9 RATIO (10-20) 04/04/19 10:28 Glucose 203 mg/dL (74-106) H 04/04/19 10:28 Weight used for dosin kg Estimated Creatinine Clearance: 28 ml/min Goal Trough: 10-15 mcg/mL Pharmacy Plan for Drug Dosing: Pharmacy consulted for vancomycin management. A loading dose/moderate trough was ordered for this patient. The patient will not get a loading dose from inpatient order, as the patient had already received vancomycin 2000mg IV x1 in ED (this would have been the patient's loading dose). Will go ahead and start the scheduled dosing per dosing protocol. Of note; the patient was previously on vancomycin on his last admission. The goal trough at that time was 15-20, and he was stable on 1000mg IV Q12hr, the patient had similar renal function at that time. Should the trough goal change for this patient, would consider changing dose to what the patient was getting on last admission. PLAN/RECOMMENDATIONS 1. No vancomycin loading dose at this time (Got 2000mg IV x1 in ED 04/04/19) 2. Vancomycin 1000mg IV Q24hr to start 1/2/20 @1200 3. Trough prior to 3rd total dose per protocol 04/06/19 @1130 4. Pharmacy Service will continue to monitor and adjust dosing as required.
[2019-04-04 14:11] LABS: M R Staph aureus DNA By PCR POSITIVE (Negative)
[2019-04-04 14:12] LABS: Probe Check PASS
--- NOTE | 2019-04-04 14:14 | NURSING ---
LAWRENCE Estrada CALLED FROM LAB AND NASAL MRSA SWAB IS POSITIVE- NOHEMY STANTON'S RN MADE AWARE AND SHE WILL NOTIFY
[2019-04-04] MEDS: APIXABAN 2.5 MG TABLET PO ×2 (14:22→22:50)
[2019-04-04 15:34] VITALS: RESP 18; O2SAT 93
[2019-04-04 16:05] VITALS: BP 139/72; PULSE 75; RESP 18; TEMP 36.8; O2SAT 94
[2019-04-04] MEDS: Insulin Lispro 100 UNIT/ML INSULN.PEN 40 UNIT SC (16:24)
[2019-04-04] MEDS: oxyCODONE 5 MG Tablet PO (20:59)
[2019-04-04 22:50] VITALS: BP 137/67; PULSE 75; RESP 20; TEMP 36.8; O2SAT 94
[2019-04-04] MEDS: Atorvastatin Calcium 40 MG Tablet PO (22:50)
[2019-04-04] MEDS: Carvedilol 25 MG Tablet PO (22:50)
[2019-04-05] VITALS (8 sets, daily range): BP systolic 121–134; BP diastolic 58–70; PULSE 64–73; RESP 18–20; TEMP 36.7–37.1; O2SAT 94–98
[2019-04-05 06:03] LABS: Absolute Lymphocyte Count 1.35 X10^3/uL (0.83-4.51); Absolute Neutrophil Count 8.8 X10^3/uL (2.0-7.7); Basophil# 0.06 X10^3/uL; Basophil% 0.5 % (0-1); Eosinophil# 0.25 X10^3/uL; Eosinophils% 2.2 % (0-5); Hematocrit 43.6 % (40-54); Hemoglobin 13.3 g/dL (13.0-16.5); Lymphocyte # 1.35 X10^3/ul (4.0); Lymphocyte % 11.7 % (19-41); Mean Corp Hgb Conc 30.5 g/dL (32-36); Mean Corpuscular Hgb 28.9 pg (27.0-32.0); Mean Corpuscular Volume 94.6 fL (80-94); Mean Platelet Vol. 10.4 fl (6.2-12.0); Monocyte# 0.92 X10^3/uL; NRBC Flagged by Analyzer 0 % (0-5); Neutrophil # 8.84 X10^3/uL (2.7-7.7); Neutrophil % 76.9 % (47-70); Platelet Count 160 K/mm3 (150-450); RBC Distribution Width CV 13.8 % (11.6-14.6); Red Blood Count 4.61 M/mm3 (4.6-6.2); White Blood Count 11.5 K/mm3 (4.4-11.0)
[2019-04-05 06:09] LABS: ALB/GLOB Ratio 0.3 RATIO (0.9-2.4); AST(SGOT) 19 U/L (15-37); Alanine Aminotransfer ALT/SGPT 15 U/L (16-61); Albumin, Serum 1.5 g/dL (3.2-5.0); Alkaline Phosphatase 88 U/L (45-117); Anion Gap 9 (5-15); BUN 38 mg/dL (7-18); BUN/Creat Ratio 14.1 RATIO (10-20); Calcium,Total 7.8 mg/dL (8.5-10.1); Chloride 107 mmol/L (98-107); EST Glomerular Filtration Rate 26 mL/min (>60); Est Glom Filt Rate - Afr Amer 32 mL/min (>60); Glucose 155 mg/dL (74-106); Potassium 3.9 mmol/L (3.5-5.1); Protein, Total 6.5 g/dL (6.4-8.2); Sodium Level 135 mmol/L (136-145)
--- NOTE | 2019-04-05 09:04 | CON.PCM_ITS ---
Consultation - Renal 04/05/19 PCP/ Referring MD: Requesting physician: [] Primary care physician: Betty Farrell MD Reason for Consultation:: Acute on CKD stage 3 - History of Present Illness History of Present Illness: The patient is a 53 year old morbidly obese M well known to me with biopsy proven diabetic nephropathy with nephrotic proteinuria admitted for LLE cellulitis. Complained of fatigue, anorexia, fever, chills with left leg pain, swelling and redness, tenderness to touch. Blood cx sent. Leukocytosis with fever on presentation. Creatinine 2.7 from baseline 1.94 on 02/19/19. He remains on lasix 80mg twice a day. Currently on iv antibiotics with vancomycin, cefazolin and pip/tazo. Leg redness slightly improved but diaper machine tender. States his knee was swollen and painful with bending. Denies nausea, vomiting, confusion. Denies trauma. Hx hospitalization for cellulitis in same knee in the past. No prosthesis. - Allergies Allergies: Allergies pravastatin sodium [From Pravachol] Adverse Reaction (Intermediate, Verified 04/04/19 09:57) muscle aches ACHY MUSCLES - Current Medications Current Medications: Current Medications Acetaminophen (Tylenol) 650 mg PO Q6H PRN PRN PRN Reason: Pain Score 1-3/Temp > 100.7 F Al Hydroxide/Mg Hydroxide (Mylanta Ii) 30 ml PO Q6H PRN PRN PRN Reason: Gastric Burning Albuterol Sulfate (Ventolin Aerosols) 2.5 mg INHALATION Q2H PRN PRN PRN Reason: Shortness of Breath/Wheezing Amlodipine Besylate (Norvasc) 10 mg PO DAILY [facility] Apixaban (Eliquis) 2.5 mg PO BID [facility] Last Admin: 04/04/19 22:50 Dose: 2.5 mg Documented by: Aspirin (Aspirin, Baby) 81 mg PO DAILY@0800 [facility] Atorvastatin Calcium (Lipitor) 40 mg PO QHS [facility] Last Admin: 04/04/19 22:50 Dose: 40 mg Documented by: Bupropion HCl (Wellbutrin Xl) 300 mg PO DAILY [facility] Carvedilol (Coreg) 25 mg PO BID [facility] Last Admin: 04/04/19 22:50 Dose: 25 mg Documented by: Furosemide (Lasix) 80 mg PO BIDLX [facility] Glucagon () 1 mg IM .X1 PRN PRN Reason: Hypoglycemia Sodium Chloride () 250 mls @ 15 mls/hr IV .[id number] PRN PRN Reason: Saline Flush Sodium Chloride () 250 mls @ 15 mls/hr IV .[id number] PRN PRN Reason: Additional IVPB Infusion Vancomycin IV Pharmacy to Dose (1 ea/ Sodium Chloride) 500 mls @ 250 mls/hr IV PRN PRN; Protocol Ceftriaxone Sodium 2 gm/ (Sodium Chloride) 50 mls @ 100 mls/hr IV Q24 [facility] Last Infusion: 04/04/19 15:23 Dose: Infused Documented by: Dextrose (Dextrose 10%-Water) 250 mls @ 999 mls/hr IV .Q16M PRN; Protocol PRN Reason: HYPOGLYCEMIA Vancomycin HCl (Vancomycin) 1,000 mg in 200 mls @ 200 mls/hr IV Q24H [facility] Influenza Virus Vaccine Quadrival (Flucelvax /Fluzone ) 0.5 ml IM .ONCE ONE Stop: 04/05/19 10:01 Insulin Glargine (Lantus (Bkc)) 80 units SC BID [facility] Last Admin: 04/04/19 23:10 Dose: 80 units Documented by: Insulin Human Lispro (Humalog Kwikpen (Bk)) 0 unit SC ACHS [facility]; Protocol Last Admin: 04/05/19 06:50 Dose: Not Given Documented by: Insulin Human Lispro (Humalog Kwikpen (Bk)) 40 unit SC TIDCM [facility] Last Admin: 04/04/19 16:24 Dose: 10 u Documented by: Losartan Potassium (Cozaar) 100 mg PO DAILY [facility] Morphine Sulfate () 2 mg IV Q3H PRN PRN PRN Reason: Pain Score 6-10/10 Nitroglycerin (Nitrostat) 0.4 mg SUBLINGUAL Q5M PRN PRN Reason: CARDIAC/CHEST PAIN Ondansetron HCl (Zofran) 4 mg IV Q8H PRN PRN PRN Reason: NAUSEA/VOMITING Oxycodone HCl (Oxyir) 5 mg PO Q4H PRN PRN PRN Reason: Pain Score 4-5/10 Last Admin: 04/04/19 20:59 Dose: 5 mg Documented by: Pantoprazole Sodium (Protonix) 20 mg PO DAILY [facility] Potassium Chloride (K-Dur) [facility]q [facility] Last Admin: 04/04/19 16:07 Dose: 20 meq Documented by: Prochlorperazine Edisylate (Compazine Iv) 5 mg IV Q4H PRN PRN PRN Reason: Breakthrough nausea/vomiting Senna/Docusate Sodium (Senokot-S, Coleen-Colace) 2 tablet PO BID PRN PRN PRN Reason: Constipation Sodium Chloride () 10 - 40 ml IV UD PRN PRN Reason: SALINE FLUSH - Past Medical History Past Medical History (Chronic Problems): Chronic Problems (Last Reviewed 12/06/18 @ 15:57 by Butch Schmitz DO) Chronic diastolic (congestive) heart failure (Chronic) Pure hypercholesterolemia (Chronic) Essential (primary) hypertension (Chronic) Dyspnea (Chronic) Left ventricular hypertrophy (Chronic) Secondary pulmonary arterial hypertension (Chronic) Atherosclerosis of coronary artery bypass graft without angina pectoris (Chronic) S/P CABG in 03/2014 with LOGAN to distal LAD, reverse SVG to first diagonal and second diagonal, obtuse marginal, and posterior descending artery; Lymphedema of left leg (Chronic) Morbid obesity (Chronic) Diabetes mellitus out of control (Chronic) - Past Surgical History Surgical History: coronary bypass surgery, - - Patient underwent coronary stent placement in 2008. He underwent coronary revascularization in March 2014, at which time 5 coronary bypass grafts were performed. Patient has a history of right groin wound debridement for MRSA. - Social History Smoking Status: Never smoker - Family History Paternal Family History: Family History (Last Reviewed 12/06/18 @ 15:58 by Butch Schmitz DO) Father Hypertension History Items: Hypertension Maternal Family History: Family History (Last Reviewed 12/06/18 @ 15:58 by Butch Schmitz DO) Father Hypertension History Items: Cancer - brain, Seizures Review of Systems Constitutional: Reports: Anorexia, Chills, Fever, Malaise, Weakness, Fatigue Eyes: Denies: Vision Change HEENT: Denies: Head Aches Cardiovascular: Denies: Chest Pain Respiratory: Denies: Cough, Shortness of Breath Gastrointestinal: Reports: - - anorexia. Denies: Abdominal Pain, Constipation, Diarrhea, Nausea, Vomiting Musculoskeletal: Reports: Leg Pain - left leg with swelling in the knee, redness, tender to touch, - - pain to ambulate on leg Skin: Reports: - - cellulitis LLE Neurological: Denies: Balance problems, Seizures Psychiatric: Denies: Anxiety, Depression Hematologic/ Lymphatic: Denies: Hx of blood clot - Physical Exam Vitals/I&O's: Vital Signs Temp Pulse Resp BP Pulse Ox 98.3 F 69 18 129/63 H 95 04/05/19 04:50 04/05/19 04:50 04/05/19 04:50 04/05/19 04:50 04/05/19 07:49 Oxygen Delivery Method Room Air Weight: 160 kg Body Mass Index (BMI) 55.3 Intake and Output for Last 24 Hours 04/03/19 04/04/19 04/05/19 23:59 23:59 23:59 Intake Total 1262.5 / 1662.5 1377.5 / 1377.5 Output Total 800 / 800 Balance 1262.5 / 862.5 577.5 / 577.5 General: Alert, Oriented x3, Cooperative, No apparent distress Neck: Supple Lungs: Clear to auscultation Cardiovascular: Regular rate, No murmurs Abdomen: Bowel Sounds Present, Soft, Non Tender, Non-Distended, Obese Extremities: Edema - LLE, - - knee swelling, tender to touch Skin: - - redness pretibial, tender Musculoskeletal: No Muscle Wasting Neurological: Cranial nerves II-XII grossly intact Psych/Mental Status: Normal Affect, Appropriate, Alert and oriented to time, place, person, mood and affect Laboratory Results 04/04/19 10:28: WBC 16.5 H, RBC 4.86, Hgb 13.8, Hct 42.6, MCV 87.7, MCH 28.4, MCHC 32.4, RDW Std Deviation 42.5, RDW Coeff of Eva 13.4, Plt Count 188, MPV 9.9, Immature Gran % (Auto) 0.800, Neut % (Auto) 85.8 H, Lymph % (Auto) 6.7 L, [place] % (Auto) 6.2, Eos % (Auto) 0.2, Baso % (Auto) 0.3, Absolute Neuts (auto) 14.2 H, Absolute Lymphs (auto) 1.10, Nucleated RBC % 0 04/04/19 10:28: Sodium 132 L, Potassium 3.9, Chloride 101, Carbon Dioxide 21.0, Anion Gap 10, BUN 33 H, Creatinine 2.78 H, Estim Creat Clear Calc 28.07, Est GFR (MDRD) Af Amer 31 L, Est GFR (MDRD) Non-Af 25 L, BUN/Creatinine Ratio 11.9, Glucose 203 H, Calcium 8.2 L 04/04/19 10:28: Lactic Acid 1.7 04/04/19 12:45: MRSA (PCR) POSITIVE H 04/05/19 05:02: WBC 11.5 H, RBC 4.61, Hgb 13.3, Hct 43.6, MCV 94.6 H D, MCH 28.9, MCHC 30.5 L, RDW Std Deviation 48.0 H, RDW Coeff of Eva 13.8, Plt Count 160, MPV 10.4, Immature Gran % (Auto) 0.700, Neut % (Auto) 76.9 H, Lymph % (Auto) 11.7 L, [place] % (Auto) 8.0, Eos % (Auto) 2.2, Baso % (Auto) 0.5, Absolute Neuts (auto) 8.8 H, Absolute Lymphs (auto) 1.35, Nucleated RBC % 0 04/05/19 05:02: Sodium 135 L, Potassium 3.9, Chloride 107, Carbon Dioxide 19.0 L , Anion Gap 9, BUN 38 H, Creatinine 2.70 H, Estim Creat Clear Calc 28.90, Est GFR (MDRD) Af Amer 32 L, Est GFR (MDRD) Non-Af 26 L, BUN/Creatinine Ratio 14.1, Glucose 155 H, Calcium 7.8 L, Total Bilirubin 0.30, AST 19, ALT 15 L, Alkaline Phosphatase 88, Total Protein 6.5, Albumin 1.5 L, Globulin 5.0 H, Albumin/Globulin Ratio 0.3 L Current Medications Acetaminophen (Tylenol) 650 mg PO Q6H PRN PRN PRN Reason: Pain Score 1-3/Temp > 100.7 F Al Hydroxide/Mg Hydroxide (Mylanta Ii) 30 ml PO Q6H PRN PRN PRN Reason: Gastric Burning Albuterol Sulfate (Ventolin Aerosols) 2.5 mg INHALATION Q2H PRN PRN PRN Reason: Shortness of Breath/Wheezing Amlodipine Besylate (Norvasc) 10 mg PO DAILY [facility] Apixaban (Eliquis) 2.5 mg PO BID [facility] Last Admin: 04/04/19 22:50 Dose: 2.5 mg Documented by: Aspirin (Aspirin, Baby) 81 mg PO DAILY@0800 [facility] Atorvastatin Calcium (Lipitor) 40 mg PO QHS [facility] Last Admin: 04/04/19 22:50 Dose: 40 mg Documented by: Bupropion HCl (Wellbutrin Xl) 300 mg PO DAILY [facility] Carvedilol (Coreg) 25 mg PO BID [facility] Last Admin: 04/04/19 22:50 Dose: 25 mg Documented by: Furosemide (Lasix) 80 mg PO BIDLX [facility] Glucagon () 1 mg IM .X1 PRN PRN Reason: Hypoglycemia Sodium Chloride () 250 mls @ 15 mls/hr IV .[id number] PRN PRN Reason: Saline Flush Sodium Chloride () 250 mls @ 15 mls/hr IV .[id number] PRN PRN Reason: Additional IVPB Infusion Vancomycin IV Pharmacy to Dose (1 ea/ Sodium Chloride) 500 mls @ 250 mls/hr IV PRN PRN; Protocol Ceftriaxone Sodium 2 gm/ (Sodium Chloride) 50 mls @ 100 mls/hr IV Q24 [facility] Last Infusion: 04/04/19 15:23 Dose: Infused Documented by: Dextrose (Dextrose 10%-Water) 250 mls @ 999 mls/hr IV .Q16M PRN; Protocol PRN Reason: HYPOGLYCEMIA Vancomycin HCl (Vancomycin) 1,000 mg in 200 mls @ 200 mls/hr IV Q24H [facility] Influenza Virus Vaccine Quadrival (Flucelvax /Fluzone ) 0.5 ml IM .ONCE ONE Stop: 04/05/19 10:01 Insulin Glargine (Lantus (Bkc)) 80 units SC BID [facility] Last Admin: 04/04/19 23:10 Dose: 80 units Documented by: Insulin Human Lispro (Humalog Kwikpen (Bkc)) 0 unit SC ACHS [facility]; Protocol Last Admin: 04/05/19 06:50 Dose: Not Given Documented by: Insulin Human Lispro (Humalog Kwikpen (Bkc)) 40 unit SC TIDCM [facility] Last Admin: 04/04/19 16:24 Dose: 10 u Documented by: Losartan Potassium (Cozaar) 100 mg PO DAILY [facility] Morphine Sulfate () 2 mg IV Q3H PRN PRN PRN Reason: Pain Score 6-10/10 Nitroglycerin (Nitrostat) 0.4 mg SUBLINGUAL Q5M PRN PRN Reason: CARDIAC/CHEST PAIN Ondansetron HCl (Zofran) 4 mg IV Q8H PRN PRN PRN Reason: NAUSEA/VOMITING Oxycodone HCl (Oxyir) 5 mg PO Q4H PRN PRN PRN Reason: Pain Score 4-5/10 Last Admin: 04/04/19 20:59 Dose: 5 mg Documented by: Pantoprazole Sodium (Protonix) 20 mg PO DAILY [facility] Potassium Chloride (K-Dur) 20 meq PO BIDCM [facility] Last Admin: 04/04/19 16:07 Dose: 20 meq Documented by: Prochlorperazine Edisylate (Compazine Iv) 5 mg IV Q4H PRN PRN PRN Reason: Breakthrough nausea/vomiting Senna/Docusate Sodium (Senokot-S, Coleen-Colace) 2 tablet PO BID PRN PRN PRN Reason: Constipation Sodium Chloride () 10 - 40 ml IV UD PRN PRN Reason: SALINE FLUSH Assessment/Plan All Active Problems (Last Reviewed 12/06/18 @ 15:57 by Butch Schmitz DO) Cellulitis of left lower extremity without foot (Acute) Cellulitis (Acute) Sepsis (Acute) Orthopnea (Acute) Chest pain (Acute) Acute diastolic (congestive) heart failure (Acute) H/O coronary artery bypass surgery (Resolved ~03/2014) GERD (gastroesophageal reflux disease) (Resolved) Severe sepsis (Resolved) 1. Acute on CKD stage 3 due to acute cellulitis. Creatinine 2.7 from baseline 1.94 on 02/19. Continue to monitor while on lasix and losartan. May need to hold Losartan if creatinine worsens. 2. Acute cellulitis LLE continue iv antbx 3. Left knee effusion 4. 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 Morbid obesity 6. HTN stable
[2019-04-05] MEDS: buPROPion (XL) 300 MG TABLET.XL PO (10:00)
[2019-04-05] MEDS: Carvedilol 25 MG Tablet PO ×2 (10:00→21:54)
[2019-04-05] MEDS: Pantoprazole Sodium 20 MG Tablet PO (10:00)
[2019-04-05] MEDS: Losartan Potassium 100 MG Tablet PO (10:01)
[2019-04-05] MEDS: amLODIPine 5 MG Tablet 10 MG PO (10:01)
[2019-04-05] MEDS: Furosemide 80 MG Tablet PO ×2 (10:01→16:24)
[2019-04-05] MEDS: APIXABAN 2.5 MG TABLET PO ×2 (10:01→21:53)
[2019-04-05] MEDS: Aspirin 81 MG TAB.CHEW PO (10:01)
[2019-04-05] MEDS: 0.9% Saline Lock 10 ML Syringe IV (10:16)
--- NOTE | 2019-04-05 10:25 | CASEMGMT ---
RN RODOLFO Face to Face with patient for initial transition planning/care coordination assessment. RN CM introduced self and role at [facility]. Patient lying in bed, alert and oriented, at bedside. Patient willing to participate in assessment and is able to answer all questions appropriately. Care providers, pharmacy, and demographics verified. Patient wishes to discharge home, denies need for home health at this time. Patient states he has no further needs or concerns at this time. CM to follow for discharge planning needs that may arise. PCP: Bud Specialists: [employer] Preferred Pharmacy: [facility] Insurance: [employer] Prescription Benefit: yes Living Will/HPOA: none LNOK: Living Arrangements: Patient lives with in 1 story home with 3 steps and railing to enter the home. Transportation: self, DME/HHC: Patient has cane at home. Patient also has cpap, but does not utilize. Patient denies previous HHC. Disposition Plan: Patient to discharge home with family support and follow-up plans in place. Grace ORTIZ, RN, CM
--- NOTE | 2019-04-05 10:41 | CON.PCM_ITS ---
Reason for Consult: Left leg cellulitis Consulted by: Dr. Yang History of Present Illness: The patient is a 53 year old M [] This is a 53-year-old gentleman with multiple comorbidities including obesity, coronary disease status post CABG in 2013, diabetes mellitus, chronic lymphedema of the left leg that occurred after his open heart surgery in 2013 who presents with acute erythema of the left leg over the last 48 to 72 hours along with intermittent chills and fever. Found to have a leukocytosis on admission. His admission blood cultures remain sterile to date. He denies any recent trauma to his left leg. No cardiopulmonary distress nor any gastrointestinal symptoms at this time. He is otherwise hemodynamically stable. He was placed on parenteral antimicrobial therapy. - Medical History Past Medical History (Chronic Problems): Chronic Problems (Last Reviewed 12/06/18 @ 15:57 by Butch Schmitz DO) Chronic diastolic (congestive) heart failure (Chronic) Pure hypercholesterolemia (Chronic) Essential (primary) hypertension (Chronic) Dyspnea (Chronic) Left ventricular hypertrophy (Chronic) Secondary pulmonary arterial hypertension (Chronic) Atherosclerosis of coronary artery bypass graft without angina pectoris (Chronic) S/P CABG in 03/2014 with LOGAN to distal LAD, reverse SVG to first diagonal and second diagonal, obtuse marginal, and posterior descending artery; Lymphedema of left leg (Chronic) Morbid obesity (Chronic) Diabetes mellitus out of control (Chronic) Allergies/Adverse Reactions: Allergies pravastatin sodium [From Pravachol] Adverse Reaction (Intermediate, Verified 04/04/19 09:57) muscle aches ACHY MUSCLES Home Medications: Ambulatory Orders Medication Instructions Recorded Aspirin [Aspirin, Baby] 81 mg PO DAILY@0800 10/16/15 Atorvastatin Calcium [Lipitor] 40 mg PO QHS 10/16/15 Carvedilol [Coreg (Beta Kody)] 25 mg PO BID 08/29/17 Omeprazole [Prilosec] 20 mg PO DAILY 08/29/17 amlodipine 5 mg tablet 10 mg PO QDAY tab 02/07/18 Bupropion HCl [Bupropion Xl] 300 mg PO DAILY 12/06/18 Furosemide [Lasix] 80 mg PO BID 12/06/18 Potassium Chloride [K-Dur] 20 meq PO BID 12/06/18 Insulin Glargine [Lantus (BKC)] 80 units SUBCUT BID 04/04/19 Insulin Lispro [Humalog KwikPen] 30 - 50 unit SQ TIDCM 04/04/19 Losartan Potassium 100 mg PO DAILY 04/04/19 Vital Signs Temp Pulse Resp BP Pulse Ox 98.0 F 70 18 134/70 H 95 04/05/19 09:57 04/05/19 09:57 04/05/19 09:57 04/05/19 09:57 04/05/19 09:57 Oxygen Delivery Method Room Air Weight: 160 kg Body Mass Index (BMI) 55.3 Laboratory Tests Past 24 Hrs 04/04/19 04/04/19 04/04/19 10:28 10:28 12:45 WBC RBC Hgb Hct MCV MCH MCHC RDW Std Deviation RDW Coeff of Eva Plt Count MPV Immature Gran % (Auto) Neut % (Auto) Lymph % (Auto) [place] % (Auto) Eos % (Auto) Baso % (Auto) Absolute Neuts (auto) Absolute Lymphs (auto) Nucleated RBC % Sodium 132 L Potassium 3.9 Chloride 101 Carbon Dioxide 21.0 Anion Gap 10 BUN 33 H Creatinine 2.78 H Estim Creat Clear Calc 28.07 Est GFR (MDRD) Af Amer 31 L Est GFR (MDRD) Non-Af 25 L BUN/Creatinine Ratio 11.9 Glucose 203 H Lactic Acid 1.7 Calcium 8.2 L Total Bilirubin AST ALT Alkaline Phosphatase Total Protein Albumin Globulin Albumin/Globulin Ratio MRSA (PCR) POSITIVE H 04/05/19 04/05/19 05:02 05:02 WBC 11.5 H RBC 4.61 Hgb 13.3 Hct 43.6 MCV 94.6 H D MCH 28.9 MCHC 30.5 L RDW Std Deviation 48.0 H RDW Coeff of Eva 13.8 Plt Count 160 MPV 10.4 Immature Gran % (Auto) 0.700 Neut % (Auto) 76.9 H Lymph % (Auto) 11.7 L [place] % (Auto) 8.0 Eos % (Auto) 2.2 Baso % (Auto) 0.5 Absolute Neuts (auto) 8.8 H Absolute Lymphs (auto) 1.35 Nucleated RBC % 0 Sodium 135 L Potassium 3.9 Chloride 107 Carbon Dioxide 19.0 L Anion Gap 9 BUN 38 H Creatinine 2.70 H Estim Creat Clear Calc 28.90 Est GFR (MDRD) Af Amer 32 L Est GFR (MDRD) Non-Af 26 L BUN/Creatinine Ratio 14.1 Glucose 155 H Lactic Acid Calcium 7.8 L Total Bilirubin 0.30 AST 19 ALT 15 L Alkaline Phosphatase 88 Total Protein 6.5 Albumin 1.5 L Globulin 5.0 H Albumin/Globulin Ratio 0.3 L MRSA (PCR) - Other Studies Radiology: [] Other Studies: [] Route of nutrition/ use of supplements: [] Nutritional Intake: [] IV Site: [] Burt Catheter: [] Patient is alert and oriented does not appear toxic lungs are clear heart exam S1-S2 no murmurs appreciated abdomen is obese but soft, left leg there is diffuse erythema and localized lymphedema. No crepitus or signs of deep infection - Assessment/Plan Antibiotics: [] Assessment/Plan: [] Acute left leg cellulitis, patient has had previous episodes and this is his third episode since 2013. Strongly suspect streptococcal in etiology. 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 At this point will treat with Ancef 2 g IV every 12 hours, dosing based on his diminished GFR secondary to his diabetes. We will also keep the left leg elevated and follow his clinical response.
--- NOTE | 2019-04-05 12:14 | PCM.PN.HOSP ---
Reason for Visit: Left leg cellulitis. Venous Doppler was done negative. Objective: The patient is hemodynamically stable. No fever or chills. Patient seen by hose operator and ID. Vitals/I&O's: Vital Signs Temp Pulse Resp BP Pulse Ox 98.0 F 70 18 134/70 H 95 04/05/19 09:57 04/05/19 09:57 04/05/19 09:57 04/05/19 09:57 04/05/19 09:57 Oxygen Delivery Method Room Air Weight: 352 lb 11.834 oz Body Mass Index (BMI) 55.3 Intake and Output for Last 24 Hours 04/03/19 04/04/19 04/05/19 23:59 23:59 23:59 Intake Total 1262.5 / 1662.5 1788.5 / 1788.5 Output Total 2049 / 2049 Balance 1262.5 / 862.5 -261.5 / -261.5 General: Alert, Oriented x3, Cooperative HEENT: Atraumatic, PERRLA, EOMI, Normocephalic Neck: Supple, No JVD, Negative Carotid Bruits, - - Diminished arterial pulsation in left leg secondary to swelling Lungs: Clear to auscultation, No rhonchi, No wheeze, No rales, Diminished Cardiovascular: Regular rate, Regular Rhythm, Normal S1, Normal S2, No murmurs, - - CABG scar Abdomen: Bowel Sounds Present, Soft, Non Tender, Non-Distended Extremities: No edema, Capillary Refill Less than 3 Seconds, Edema - Left lower leg venous edema and lymphedema Skin: No rashes, No breakdown Musculoskeletal: No Tenderness to Palpation of Joints or Extremities, Arthritic Changes Neurological: Cranial nerves II-XII grossly intact, Deep Tendon Reflexes 2+/4 and Symmetrical, Neuro grossly intact Psych/Mental Status: Normal Affect, Appropriate Laboratory Results 04/04/19 12:45: MRSA (PCR) POSITIVE H 04/05/19 05:02: WBC 11.5 H, RBC 4.61, Hgb 13.3, Hct 43.6, MCV 94.6 H D, MCH 28.9, MCHC 30.5 L, RDW Std Deviation 48.0 H, RDW Coeff of Eva 13.8, Plt Count 160, MPV 10.4, Immature Gran % (Auto) 0.700, Neut % (Auto) 76.9 H, Lymph % (Auto) 11.7 L, Mineral % (Auto) 8.0, Eos % (Auto) 2.2, Baso % (Auto) 0.5, Absolute Neuts (auto) 8.8 H, Absolute Lymphs (auto) 1.35, Nucleated RBC % 0 04/05/19 05:02: Sodium 135 L, Potassium 3.9, Chloride 107, Carbon Dioxide 19.0 L, Anion Gap 9, BUN 38 H, Creatinine 2.70 H, Estim Creat Clear Calc 28.90, Est GFR (MDRD) Af Amer 32 L, Est GFR (MDRD) Non-Af 26 L, BUN/Creatinine Ratio 14.1, Glucose 155 H, Calcium 7.8 L, Total Bilirubin 0.30, AST 19, ALT 15 L, Alkaline Phosphatase 88, Total Protein 6.5, Albumin 1.5 L, Globulin 5.0 H, Albumin/Globulin Ratio 0.3 L Current Medications Acetaminophen (Tylenol) 650 mg PO Q6H PRN PRN PRN Reason: Pain Score 1-3/Temp > 100.7 F Al Hydroxide/Mg Hydroxide (Mylanta Ii) 30 ml PO Q6H PRN PRN PRN Reason: Gastric Burning Albuterol Sulfate (Ventolin Aerosols) 2.5 mg INHALATION Q2H PRN PRN PRN Reason: Shortness of Breath/Wheezing Amlodipine Besylate (Norvasc) 10 mg PO DAILY [facility] Last Admin: 04/05/19 10:01 Dose: 10 mg Documented by: Apixaban (Eliquis) 2.5 mg PO BID [facility] Last Admin: 04/05/19 10:01 Dose: 2.5 mg Documented by: Aspirin (Aspirin, Baby) 81 mg PO DAILY@0800 [facility] Last Admin: 04/05/19 10:01 Dose: 81 mg Documented by: Atorvastatin Calcium (Lipitor) 40 mg PO QHS [facility] Last Admin: 04/04/19 22:50 Dose: 40 mg Documented by: Bupropion HCl (Wellbutrin Xl) 300 mg PO DAILY [facility] Last Admin: 04/05/19 10:00 Dose: 300 mg Documented by: Carvedilol (Coreg) 25 mg PO BID [facility] Last Admin: 04/05/19 10:00 Dose: 25 mg Documented by: Furosemide (Lasix) 80 mg PO BIDLX [facility] Last Admin: 04/05/19 10:01 Dose: 80 mg Documented by: Glucagon () 1 mg IM .X1 PRN PRN Reason: Hypoglycemia Sodium Chloride () 250 mls @ 15 mls/hr IV .[id number] PRN PRN Reason: Saline Flush Last Infusion: 04/05/19 10:38 Dose: 15 mls/hr Documented by: Sodium Chloride () 250 mls @ 15 mls/hr IV .[id number] PRN PRN Reason: Additional IVPB Infusion Dextrose (Dextrose 10%-Water) 250 mls @ 999 mls/hr IV .Q16M PRN; Protocol PRN Reason: HYPOGLYCEMIA Cefazolin Sodium 2 gm/ Sodium (Chloride) 110 mls @ 150 mls/hr IV Q12 [facility] Insulin Glargine (Lantus (Bkc)) 80 units SC BID [facility] Last Admin: 04/05/19 10:00 Dose: 80 units Documented by: Insulin Human Lispro (Humalog Kwikpen (Bkc)) 0 unit SC ACHS [facility]; Protocol Last Admin: 04/05/19 06:50 Dose: Not Given Documented by: Insulin Human Lispro (Humalog Kwikpen (Bkc)) 40 unit SC TIDCM [facility] Last Admin: 04/05/19 09:59 Dose: Not Given Documented by: Losartan Potassium (Cozaar) 100 mg PO DAILY [facility] Last Admin: 04/05/19 10:01 Dose: 100 mg Documented by: Morphine Sulfate () 2 mg IV Q3H PRN PRN PRN Reason: Pain Score 6-10/10 Nitroglycerin (Nitrostat) 0.4 mg SUBLINGUAL Q5M PRN PRN Reason: CARDIAC/CHEST PAIN Ondansetron HCl (Zofran) 4 mg IV Q8H PRN PRN PRN Reason: NAUSEA/VOMITING Oxycodone HCl (Oxyir) 5 mg PO Q4H PRN PRN PRN Reason: Pain Score 4-5/10 Last Admin: 04/04/19 20:59 Dose: 5 mg Documented by: Pantoprazole Sodium (Protonix) 20 mg PO DAILY [facility] Last Admin: 04/05/19 10:00 Dose: 20 mg Documented by: Potassium Chloride (K-Dur) 20 meq PO BIDCM [facility] Last Admin: 04/05/19 10:01 Dose: 20 meq Documented by: Prochlorperazine Edisylate (Compazine Iv) 5 mg IV Q4H PRN PRN PRN Reason: Breakthrough nausea/vomiting Senna/Docusate Sodium (Senokot-S, Coleen-Colace) 2 tablet PO BID PRN PRN PRN Reason: Constipation Sodium Chloride () 10 - 40 ml IV UD PRN PRN Reason: SALINE FLUSH Last Admin: 04/05/19 10:16 Dose: 10 ml Documented by: STROKE Vital Signs/Narrative: Vital Signs Temp Pulse Resp BP Pulse Ox 04/05/19 09:57 98.0 F 70 18 134/70 H 95 Medical Necessity - Tobacco Use Smoking Status: Never smoker Assessment/Plan All Active Problems (Last Reviewed 12/06/18 @ 15:57 by Butch Schmitz DO) Cellulitis of left lower extremity without foot (Acute) Cellulitis (Acute) Sepsis (Acute) Orthopnea (Acute) Chest pain (Acute) Acute diastolic (congestive) heart failure (Acute) H/O coronary artery bypass surgery (Resolved ~03/2014) GERD (gastroesophageal reflux disease) (Resolved) Severe sepsis (Resolved) The patient is a 53 year old M with history of recurrent flatness of left lower leg with lymphedema after he had vein harvest from left leg for coronary artery bypass in 2013 was admitted with left leg cellulitis and acute kidney injury on CKD stage III. 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 The patient was last admitted between 12/06 to 12/10 for severe sepsis secondary to cellulitis of left lower extremity and TALITA on CKD stage III In ED, temperature 97.8 Fahrenheit, no tachycardia. Blood pressure stable 149/71 with no tachypnea or hypoxia. Leukocytosis 16.5 thousand with left shift. Sodium 132, BUN/creatinine 33/2.78. Glucose 203. Lactic acid 1.7. Patient got 1 dose of vancomycin and Zosyn in ER and admitted. 1. Sepsis secondary to left lower extremity cellulitis: Patient is being admitted on MedSurg floor. As patient is history of MRSA, will continue vancomycin. Ceftriaxone is added for gram-negative coverage. Venous Doppler ordered to rule out DVT. Patient denies any previous history of DVT/PE. IV fluid normal saline at 100 mL/h for 1 L and then reevaluate. 04/05/2019: Patient was seen by ID. He thinks patient had strep left leg cellulitis. Venous Doppler is negative. He advised Ancef 2 g IV every 12 hourly and discontinue vancomycin and ceftriaxone. 2. Coronary artery disease status post CABG, dyslipidemia and chronic diastolic CH: We will watch out for fluid overload. Resume Lasix and metolazone from tomorrow a.m. 3. Acute kidney injury on CKD stage III: Likely from cardiorenal/diuretics: Patient has a history of acute kidney injury on CKD during previous admission. Monitor Vanco level. Monitor kidney function, intake and output, and electrolytes. 04/05/2019: Patient seen by hose operator. Will discontinue losartan and keep Lasix as patient has history of heart failure. Started on hydralazine as per replacement of losartan. Kidney function is a stable but BUN went up from 33-38. Admitting creatinine 2.78. Creatinine 2.70. 4. Type II DM with diabetic nephropathy: Patient had hyperglycemia, glucose 203. Accu-Cheks before meals and at bedtime and cover with Humalog sliding scale. Resume patient home dose of Lantus and lispro. 04/05/2019: Glucose is controlled. 5. Hypertension, continue on home amlodipine, and carvedilol. 6. DVT prophylaxis with super morbid obesity, BMI 56.0 kg, lifestyle modification recommended. Eliquis 2.5 mg twice daily for DVT prophylaxis Microbiology Past 72 Hours 04/04/19 10:53 Blood Culture (Wb) - Anticubital Right Blood Culture - Preliminary No growth in 48 hours. 04/04/19 10:28 Blood Culture (Wb) - Left Hand Blood Culture - Preliminary No growth in 48 hours. Laboratory Results 04/04/19 12:45: MRSA (PCR) POSITIVE H 04/05/19 05:02: WBC 11.5 H, RBC 4.61, Hgb 13.3, Hct 43.6, MCV 94.6 H D, MCH 28.9, MCHC 30.5 L, RDW Std Deviation 48.0 H, RDW Coeff of Eva 13.8, Plt Count 160, MPV 10.4, Immature Gran % (Auto) 0.700, Neut % (Auto) 76.9 H, Lymph % (Auto) 11.7 L, Mineral % (Auto) 8.0, Eos % (Auto) 2.2, Baso % (Auto) 0.5, Absolute Neuts (auto) 8.8 H, Absolute Lymphs (auto) 1.35, Nucleated RBC % 0 04/05/19 05:02: Sodium 135 L, Potassium 3.9, Chloride 107, Carbon Dioxide 19.0 L, Anion Gap 9, BUN 38 H, Creatinine 2.70 H, Estim Creat Clear Calc 28.90, Est GFR (MDRD) Af Amer 32 L, Est GFR (MDRD) Non-Af 26 L, BUN/Creatinine Ratio 14.1, Glucose 155 H, Calcium 7.8 L, Total Bilirubin 0.30, AST 19, ALT 15 L, Alkaline Phosphatase 88, Total Protein 6.5, Albumin 1.5 L, Globulin 5.0 H, Albumin/Globulin Ratio 0.3 L Code Visit Inpatient E&M: 75792 Subs Hosp L3
[2019-04-05] MEDS: Insulin Lispro 100 UNIT/ML INSULN.PEN 40 UNIT SC ×2 (12:29→17:05)
[2019-04-05] MEDS: hydrALAZINE 25 MG Tablet PO ×2 (14:04→21:53)
[2019-04-05] MEDS: oxyCODONE 5 MG Tablet PO (19:34)
[2019-04-05] MEDS: Atorvastatin Calcium 40 MG Tablet PO (21:53)
[2019-04-05] MEDS: Cefazolin 2 GM in 0.9% Normal Saline 100 ML IV (21:57)
[2019-04-06] VITALS (8 sets, daily range): BP systolic 118–167; BP diastolic 59–78; PULSE 65–68; RESP 18; TEMP 36.4–36.6; O2SAT 95–98
[2019-04-06] MEDS: hydrALAZINE 25 MG Tablet PO (06:38)
--- NOTE | 2019-04-06 08:06 | NURSING ---
pt self checks blood sugar, results of 101 this morning
[2019-04-06] MEDS: Carvedilol 25 MG Tablet PO ×2 (08:10→21:57)
[2019-04-06] MEDS: Pantoprazole Sodium 20 MG Tablet PO (08:10)
[2019-04-06] MEDS: Aspirin 81 MG TAB.CHEW PO (08:10)
[2019-04-06] MEDS: amLODIPine 5 MG Tablet 10 MG PO (08:11)
[2019-04-06] MEDS: APIXABAN 2.5 MG TABLET PO ×2 (08:11→21:57)
[2019-04-06] MEDS: Furosemide 80 MG Tablet PO ×2 (08:11→16:15)
[2019-04-06] MEDS: buPROPion (XL) 300 MG TABLET.XL PO (08:11)
[2019-04-06] MEDS: Cefazolin 2 GM in 0.9% Normal Saline 100 ML IV ×3 (09:50→21:57)
--- NOTE | 2019-04-06 09:50 | NURSING ---
bs 203 @ this time, per patients personal meter
[2019-04-06] MEDS: 0.9% Saline Lock 10 ML Syringe IV ×3 (09:51→22:08)
--- NOTE | 2019-04-06 10:20 | PN.RENAL_ITS ---
Subjective: No new labs today. Labs ordered this morning. Complains of severe left knee pain with bending and pressure on knee with walking. No superficial erythema or swelling. Cellulitis improving on IV antibiotics. - Physical Exam Vitals/I&O's: Vital Signs Temp Pulse Resp BP Pulse Ox 97.7 F L 67 18 147/71 H 98 04/06/19 08:08 04/06/19 08:08 04/06/19 08:08 04/06/19 08:08 04/06/19 08:08 Oxygen Delivery Method Room Air Weight: 160.118 kg Body Mass Index (BMI) 55.3 Intake and Output for Last 24 Hours 04/04/19 04/05/19 04/06/19 23:59 23:59 23:59 Intake Total 1262.5 / 1662.5 2886.5 / 2886.5 500 / 500 Output Total 3350 / 3350 1000 / 1000 Balance 1262.5 / 862.5 -463.5 / -463.5 -500 / -500 General: Alert, Oriented x3, Cooperative, No apparent distress Abdomen: Obese Extremities: Edema - Mild left lower extremity. Cellulitis improving pretibial area. Tenderness in the calf area and left knee Skin: - - Cellulitis left lower extremity below knee to ankle with erythema Musculoskeletal: Tenderness Psych/Mental Status: Normal Affect, Appropriate, Alert and oriented to time, place, person, mood and affect Microbiology Past 72 Hours 04/04/19 10:53 Blood Culture (Wb) - Anticubital Right Blood Culture - Preliminary No growth in 48 hours. 04/04/19 10:28 Blood Culture (Wb) - Left Hand Blood Culture - Preliminary No growth in 48 hours. Current Medications Acetaminophen (Tylenol) 650 mg PO Q6H PRN PRN PRN Reason: Pain Score 1-3/Temp > 100.7 F Al Hydroxide/Mg Hydroxide (Mylanta Ii) 30 ml PO Q6H PRN PRN PRN Reason: Gastric Burning Albuterol Sulfate (Ventolin Aerosols) 2.5 mg INHALATION Q2H PRN PRN PRN Reason: Shortness of Breath/Wheezing Amlodipine Besylate (Norvasc) 10 mg PO DAILY [facility] Last Admin: 04/06/19 08:11 Dose: 10 mg Documented by: Apixaban (Eliquis) 2.5 mg PO BID [facility] Last Admin: 04/06/19 08:11 Dose: 2.5 mg Documented by: Aspirin (Aspirin, Baby) 81 mg PO DAILY@0800 [facility] Last Admin: 04/06/19 08:10 Dose: 81 mg Documented by: Atorvastatin Calcium (Lipitor) 40 mg PO QHS [facility] Last Admin: 04/05/19 21:53 Dose: 40 mg Documented by: Bupropion HCl (Wellbutrin Xl) 300 mg PO DAILY [facility] Last Admin: 04/06/19 08:11 Dose: 300 mg Documented by: Carvedilol (Coreg) 25 mg PO BID [facility] Last Admin: 04/06/19 08:10 Dose: 25 mg Documented by: Furosemide (Lasix) 80 mg PO BIDLX [facility] Last Admin: 04/06/19 08:11 Dose: 80 mg Documented by: Glucagon () 1 mg IM .X1 PRN PRN Reason: Hypoglycemia Hydralazine HCl (Apresoline) 25 mg PO TID [facility] Last Admin: 04/06/19 06:38 Dose: 25 mg Documented by: Hydralazine HCl (Apresoline Iv) 10 mg IV Q4H PRN PRN PRN Reason: SBP more than 180 mmHg Sodium Chloride () 250 mls @ 15 mls/hr IV .[id number] PRN PRN Reason: Saline Flush Last Infusion: 04/05/19 12:30 Dose: 0 mls/hr Documented by: Sodium Chloride () 250 mls @ 15 mls/hr IV .[id number] PRN PRN Reason: Additional IVPB Infusion Dextrose (Dextrose 10%-Water) 250 mls @ 999 mls/hr IV .Q16M PRN; Protocol PRN Reason: HYPOGLYCEMIA Cefazolin Sodium 2 gm/ Sodium (Chloride) 110 mls @ 150 mls/hr IV Q12 [facility] Last Admin: 04/06/19 09:50 Dose: 150 mls/hr Documented by: Insulin Glargine (Lantus (Bkc)) 80 units SC BID [facility] Last Admin: 04/06/19 09:52 Dose: 80 units Documented by: Insulin Human Lispro (Humalog Kwikpen (Bkc)) 0 unit SC ACHS [facility]; Protocol Last Admin: 04/06/19 08:09 Dose: Not Given Documented by: Insulin Human Lispro (Humalog Kwikpen (Bkc)) 40 unit SC TIDCM [facility] Last Admin: 04/06/19 08:08 Dose: Not Given Documented by: Morphine Sulfate () 2 mg IV Q3H PRN PRN PRN Reason: Pain Score 6-10/10 Nitroglycerin (Nitrostat) 0.4 mg SUBLINGUAL Q5M PRN PRN Reason: CARDIAC/CHEST PAIN Ondansetron HCl (Zofran) 4 mg IV Q8H PRN PRN PRN Reason: NAUSEA/VOMITING Oxycodone HCl (Oxyir) 5 mg PO Q4H PRN PRN PRN Reason: Pain Score 4-5/10 Last Admin: 04/05/19 19:34 Dose: 5 mg Documented by: Pantoprazole Sodium (Protonix) 20 mg PO DAILY [facility] Last Admin: 04/06/19 08:10 Dose: 20 mg Documented by: Potassium Chloride (K-Dur) 20 meq PO BIDCM [facility] Last Admin: 04/06/19 08:10 Dose: 20 meq Documented by: Prochlorperazine Edisylate (Compazine Iv) 5 mg IV Q4H PRN PRN PRN Reason: Breakthrough nausea/vomiting Senna/Docusate Sodium (Senokot-S, Coleen-Colace) 2 tablet PO BID PRN PRN PRN Reason: Constipation Sodium Chloride () 10 - 40 ml IV UD PRN PRN Reason: SALINE FLUSH Last Admin: 04/06/19 09:51 Dose: 10 ml Documented by: Medical Necessity - Tobacco Use Smoking Status: Never smoker Assessment/Plan All Active Problems (Last Reviewed 12/06/18 @ 15:57 by Butch Schmitz DO) Cellulitis of left lower extremity without foot (Acute) Cellulitis (Acute) Sepsis (Acute) Orthopnea (Acute) Chest pain (Acute) Acute diastolic (congestive) heart failure (Acute) H/O coronary artery bypass surgery (Resolved ~03/2014) GERD (gastroesophageal reflux disease) (Resolved) Severe sepsis (Resolved) 1. Acute on CKD stage 3 due to acute cellulitis. Creatinine 2.7 from baseline 1.94 on 02/19/19. Continue to monitor while on lasix and losartan. May need to hold Losartan if creatinine worsens. Check labs today 2. Acute cellulitis LLE continue iv antbx. ID following 3. Left knee effusion, pain persists. Consider Ortho evaluation 4. 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 Morbid obesity 6. HTN stable
--- NOTE | 2019-04-06 10:23 | PCM.PN.ID ---
Subjective: Patient is alert overall clinically stable tolerating Ancef well. His main complaint is left knee pain and limited mobility of his left knee. No fevers or chills. No gastrointestinal distress Objective: Alert oriented does not appear toxic abdomen is obese soft nontender heart exam S1-S2. Left leg with significant lymphedema and swelling but some improvement of the erythema. He does have limited mobility of his left knee with focal tenderness. - Physical Exam Vitals/I&O's: Vital Signs Temp Pulse Resp BP Pulse Ox 97.7 F L 67 18 147/71 H 98 04/06/19 08:08 04/06/19 08:08 04/06/19 08:08 04/06/19 08:08 04/06/19 08:08 Oxygen Delivery Method Room Air Weight: 160.118 kg Body Mass Index (BMI) 55.3 Intake and Output for Last 24 Hours 04/04/19 04/05/19 04/06/19 23:59 23:59 23:59 Intake Total 1262.5 / 1662.5 2886.5 / 2886.5 500 / 500 Output Total 3350 / 3350 1000 / 1000 Balance 1262.5 / 862.5 -463.5 / -463.5 -500 / -500 Microbiology Past 72 Hours 04/04/19 10:53 Blood Culture (Wb) - Anticubital Right Blood Culture - Preliminary No growth in 48 hours. 04/04/19 10:28 Blood Culture (Wb) - Left Hand Blood Culture - Preliminary No growth in 48 hours. Current Medications Acetaminophen (Tylenol) 650 mg PO Q6H PRN PRN PRN Reason: Pain Score 1-3/Temp > 100.7 F Al Hydroxide/Mg Hydroxide (Mylanta Ii) 30 ml PO Q6H PRN PRN PRN Reason: Gastric Burning Albuterol Sulfate (Ventolin Aerosols) 2.5 mg INHALATION Q2H PRN PRN PRN Reason: Shortness of Breath/Wheezing Amlodipine Besylate (Norvasc) 10 mg PO DAILY [facility] Last Admin: 04/06/19 08:11 Dose: 10 mg Documented by: Apixaban (Eliquis) 2.5 mg PO BID [facility] Last Admin: 04/06/19 08:11 Dose: 2.5 mg Documented by: Aspirin (Aspirin, Baby) 81 mg PO DAILY@0800 [facility] Last Admin: 04/06/19 08:10 Dose: 81 mg Documented by: Atorvastatin Calcium (Lipitor) 40 mg PO QHS [facility] Last Admin: 04/05/19 21:53 Dose: 40 mg Documented by: Bupropion HCl (Wellbutrin Xl) 300 mg PO DAILY [facility] Last Admin: 04/06/19 08:11 Dose: 300 mg Documented by: Carvedilol (Coreg) 25 mg PO BID [facility] Last Admin: 04/06/19 08:10 Dose: 25 mg Documented by: Furosemide (Lasix) 80 mg PO BIDLX [facility] Last Admin: 04/06/19 08:11 Dose: 80 mg Documented by: Glucagon () 1 mg IM .X1 PRN PRN Reason: Hypoglycemia Hydralazine HCl (Apresoline) 25 mg PO TID [facility] Last Admin: 04/06/19 06:38 Dose: 25 mg Documented by: Hydralazine HCl (Apresoline Iv) 10 mg IV Q4H PRN PRN PRN Reason: SBP more than 180 mmHg Sodium Chloride () 250 mls @ 15 mls/hr IV .[id number] PRN PRN Reason: Saline Flush Last Infusion: 04/05/19 12:30 Dose: 0 mls/hr Documented by: Sodium Chloride () 250 mls @ 15 mls/hr IV .[id number] PRN PRN Reason: Additional IVPB Infusion Dextrose (Dextrose 10%-Water) 250 mls @ 999 mls/hr IV .Q16M PRN; Protocol PRN Reason: HYPOGLYCEMIA Cefazolin Sodium 2 gm/ Sodium (Chloride) 110 mls @ 150 mls/hr IV Q12 [facility] Last Admin: 04/06/19 09:50 Dose: 150 mls/hr Documented by: Insulin Glargine (Lantus (Bkc)) 80 units SC BID [facility] Last Admin: 04/06/19 09:52 Dose: 80 units Documented by: Insulin Human Lispro (Humalog Kwikpen (Bk)) 0 unit SC ACHS [facility]; Protocol Last Admin: 04/06/19 08:09 Dose: Not Given Documented by: Insulin Human Lispro (Humalog Kwikpen (Bkc)) 40 unit SC TIDCM [facility] Last Admin: 04/06/19 08:08 Dose: Not Given Documented by: Morphine Sulfate () 2 mg IV Q3H PRN PRN PRN Reason: Pain Score 6-10/10 Nitroglycerin (Nitrostat) 0.4 mg SUBLINGUAL Q5M PRN PRN Reason: CARDIAC/CHEST PAIN Ondansetron HCl (Zofran) 4 mg IV Q8H PRN PRN PRN Reason: NAUSEA/VOMITING Oxycodone HCl (Oxyir) 5 mg PO Q4H PRN PRN PRN Reason: Pain Score 4-5/10 Last Admin: 04/05/19 19:34 Dose: 5 mg Documented by: Pantoprazole Sodium (Protonix) 20 mg PO DAILY [facility] Last Admin: 04/06/19 08:10 Dose: 20 mg Documented by: Potassium Chloride (K-Dur) 20 meq PO BIDCM [facility] Last Admin: 04/06/19 08:10 Dose: 20 meq Documented by: Prochlorperazine Edisylate (Compazine Iv) 5 mg IV Q4H PRN PRN PRN Reason: Breakthrough nausea/vomiting Senna/Docusate Sodium (Senokot-S, Coleen-Colace) 2 tablet PO BID PRN PRN PRN Reason: Constipation Sodium Chloride () 10 - 40 ml IV UD PRN PRN Reason: SALINE FLUSH Last Admin: 04/06/19 09:51 Dose: 10 ml Documented by: Medical Necessity - Tobacco Use Smoking Status: Never smoker Route of nutrition/ use of supplements: [] Nutritional Intake: [] IV Site: [] Burt Catheter: [] - Assessment/Plan Left leg cellulitis recurrent. Continue Ancef 2 g IV every 12 hours. Blood cultures remain sterile. Of concern is his limited mobility of his left knee. Will be reasonable to have orthopedic surgeon evaluate the left knee. I will try to reach the hospitalist.
--- NOTE | 2019-04-06 10:34 | RAD_ITS ---
STUDY: X-RAY - LEFT KNEE REASON FOR EXAM: Left knee pain and swelling, drained today. TECHNIQUE: 2 view(s) of the knee. COMPARISON: MRI images of the left lower leg 10/16/2015. FINDINGS: Normal visualized distal femur. Normal visualized proximal tibia and fibula. Normal proximal tibiofibular articulation. There is mild joint space narrowing of the medial femorotibial compartment. Normal lateral femorotibial compartment. There are minimal marginal osteophytes without joint space narrowing of the patellofemoral articulation. There is soft tissue swelling. There are surgical clips at the medial aspect of the knee. RAD/Knee 1 or 2 Views IMPRESSION: Mild arthrosis of the medial femorotibial compartment. Soft tissue swelling. Electronically Signed: Alberto Pereyra MD at 13:50 EST Tel , Service support ,
--- NOTE | 2019-04-06 10:48 | PN_ITS ---
Reason for Visit: Left leg cellulitis. Currently having knee pain Objective: No fever or chills. Complain of left knee pain anteriorly near infrapatellar bursa. No tachycardia. Blood pressure is stable. Vitals/I&O's: Vital Signs Temp Pulse Resp BP Pulse Ox 97.7 F L 67 18 147/71 H 98 04/06/19 08:08 04/06/19 08:08 04/06/19 08:08 04/06/19 08:08 04/06/19 08:08 Oxygen Delivery Method Room Air Weight: 353 lb Body Mass Index (BMI) 55.3 Intake and Output for Last 24 Hours 04/04/19 04/05/19 04/06/19 23:59 23:59 23:59 Intake Total 1262.5 / 1662.5 2886.5 / 2886.5 500 / 500 Output Total 3350 / 3350 1000 / 1000 Balance 1262.5 / 862.5 -463.5 / -463.5 -500 / -500 General: Alert, Oriented x3, Cooperative HEENT: Atraumatic, PERRLA, EOMI, Normocephalic Neck: Supple, No JVD, Negative Carotid Bruits Lungs: Clear to auscultation, Normal air movement, No rhonchi, No wheeze, No rales Cardiovascular: Regular rate, Regular Rhythm, Normal S1, Normal S2, No murmurs Abdomen: Bowel Sounds Present, Soft, Non Tender, Non-Distended Extremities: Capillary Refill Less than 3 Seconds, Edema - Left leg Skin: No rashes, No breakdown Musculoskeletal: Arthritic Changes, Tenderness - Tenderness present over left knee anteriorly. Seems left infrapatellar bursitis. Left knee active flexion is tender and limited beyond 10 degrees. Lymphatic: No Cervical, Supraclavicular, or Inguinal Adenopathy Neurological: Cranial nerves II-XII grossly intact, Deep Tendon Reflexes 2+/4 and Symmetrical, Neuro grossly intact Psych/Mental Status: Normal Affect, Appropriate Microbiology Past 72 Hours 04/04/19 10:53 Blood Culture (Wb) - Anticubital Right Blood Culture - Preliminary No growth in 48 hours. 04/04/19 10:28 Blood Culture (Wb) - Left Hand Blood Culture - Preliminary No growth in 48 hours. Laboratory Results 04/06/19 10:21: Sodium Pending, Potassium Pending, Chloride Pending, Carbon D ioxide Pending, Anion Gap Pending, BUN Pending, Creatinine Pending, Est GFR (MDRD) Af Amer Pending, Est GFR (MDRD) Non-Af Pending, BUN/Creatinine Ratio Pending, Glucose Pending, Calcium Pending Current Medications Acetaminophen (Tylenol) 650 mg PO Q6H PRN PRN PRN Reason: Pain Score 1-3/Temp > 100.7 F Al Hydroxide/Mg Hydroxide (Mylanta Ii) 30 ml PO Q6H PRN PRN PRN Reason: Gastric Burning Albuterol Sulfate (Ventolin Aerosols) 2.5 mg INHALATION Q2H PRN PRN PRN Reason: Shortness of Breath/Wheezing Amlodipine Besylate (Norvasc) 10 mg PO DAILY [facility] Last Admin: 04/06/19 08:11 Dose: 10 mg Documented by: Apixaban (Eliquis) 2.5 mg PO BID [facility] Last Admin: 04/06/19 08:11 Dose: 2.5 mg Documented by: Aspirin (Aspirin, Baby) 81 mg PO DAILY@0800 [facility] Last Admin: 04/06/19 08:10 Dose: 81 mg Documented by: Atorvastatin Calcium (Lipitor) 40 mg PO QHS [facility] Last Admin: 04/05/19 21:53 Dose: 40 mg Documented by: Bupropion HCl (Wellbutrin Xl) 300 mg PO DAILY [facility] Last Admin: 04/06/19 08:11 Dose: 300 mg Documented by: Carvedilol (Coreg) 25 mg PO BID [facility] Last Admin: 04/06/19 08:10 Dose: 25 mg Documented by: Furosemide (Lasix) 80 mg PO BIDLX [facility] Last Admin: 04/06/19 08:11 Dose: 80 mg Documented by: Glucagon () 1 mg IM .X1 PRN PRN Reason: Hypoglycemia Hydralazine HCl (Apresoline) 25 mg PO TID [facility] Last Admin: 04/06/19 06:38 Dose: 25 mg Documented by: Hydralazine HCl (Apresoline Iv) 10 mg IV Q4H PRN PRN PRN Reason: SBP more than 180 mmHg Sodium Chloride () 250 mls @ 15 mls/hr IV .[id number] PRN PRN Reason: Saline Flush Last Infusion: 04/05/19 12:30 Dose: 0 mls/hr Documented by: Sodium Chloride () 250 mls @ 15 mls/hr IV .[id number] PRN PRN Reason: Additional IVPB Infusion Dextrose (Dextrose 10%-Water) 250 mls @ 999 mls/hr IV .Q16M PRN; Protocol PRN Reason: HYPOGLYCEMIA Cefazolin Sodium 2 gm/ Sodium (Chloride) 110 mls @ 150 mls/hr IV Q12 [facility] Last Admin: 04/06/19 09:50 Dose: 150 mls/hr Documented by: Insulin Glargine (Lantus (Bkc)) 80 units SC BID [facility] Last Admin: 04/06/19 09:52 Dose: 80 units Documented by: Insulin Human Lispro (Humalog Kwikpen ([facility])) 0 unit SC ACHS [facility]; Protocol Last Admin: 04/06/19 08:09 Dose: Not Given Documented by: Insulin Human Lispro (Humalog Kwikpen ([facility])) 40 unit SC TIDCM [facility] Last Admin: 04/06/19 08:08 Dose: Not Given Documented by: Morphine Sulfate () 2 mg IV Q3H PRN PRN PRN Reason: Pain Score 6-10/10 Nitroglycerin (Nitrostat) 0.4 mg SUBLINGUAL Q5M PRN PRN Reason: CARDIAC/CHEST PAIN Ondansetron HCl (Zofran) 4 mg IV Q8H PRN PRN PRN Reason: NAUSEA/VOMITING Oxycodone HCl (Oxyir) 5 mg PO Q4H PRN PRN PRN Reason: Pain Score 4-5/10 Last Admin: 04/05/19 19:34 Dose: 5 mg Documented by: Pantoprazole Sodium (Protonix) 20 mg PO DAILY [facility] Last Admin: 04/06/19 08:10 Dose: 20 mg Documented by: Potassium Chloride (K-Dur) 20 meq PO BIDCM [facility] Last Admin: 04/06/19 08:10 Dose: 20 meq Documented by: Prochlorperazine Edisylate (Compazine Iv) 5 mg IV Q4H PRN PRN PRN Reason: Breakthrough nausea/vomiting Senna/Docusate Sodium (Senokot-S, Coleen-Colace) 2 tablet PO BID PRN PRN PRN Reason: Constipation Sodium Chloride () 10 - 40 ml IV UD PRN PRN Reason: SALINE FLUSH Last Admin: 04/06/19 09:51 Dose: 10 ml Documented by: STROKE Vital Signs/Narrative: Vital Signs Temp Pulse Resp BP Pulse Ox 04/06/19 08:08 97.7 F L 67 18 147/71 H 98 04/06/19 08:00 98 Medical Necessity - Tobacco Use Smoking Status: Never smoker Assessment/Plan All Active Problems (Last Reviewed 12/06/18 @ 15:57 by Butch Schmitz DO) Cellulitis of left lower extremity without foot (Acute) Cellulitis (Acute) Sepsis (Acute) Orthopnea (Acute) Chest pain (Acute) Acute diastolic (congestive) heart failure (Acute) H/O coronary artery bypass surgery (Resolved ~03/2014) GERD (gastroesophageal reflux disease) (Resolved) Severe sepsis (Resolved) The patient is a 53 year old M with history of recurrent flatness of left lower leg with lymphedema after he had vein harvest from left leg for coronary artery bypass in 2013 was admitted with left leg cellulitis and acute kidney injury on CKD stage III. 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 The patient was last admitted between 12/06 to 12/10 for severe sepsis secondary to cellulitis of left lower extremity and TALITA on CKD stage III In ED, temperature 97.8 Fahrenheit, no tachycardia. Blood pressure stable 149/71 with no tachypnea or hypoxia. Leukocytosis 16.5 thousand with left shift. Sodium 132, BUN/creatinine 33/2.78. Glucose 203. Lactic acid 1.7. Patient got 1 dose of vancomycin and Zosyn in ER and admitted. 1. Sepsis secondary to left lower extremity cellulitis: Patient is being admitted on MedSurg floor. As patient is history of MRSA, will continue vancomycin. Ceftriaxone is added for gram-negative coverage. Venous Doppler ordered to rule out DVT. Patient denies any previous history of DVT/PE. IV fluid normal saline at 100 mL/h for 1 L and then reevaluate. 04/05/2019: Patient was seen by ID. He thinks patient had strep left leg cellulitis. Venous Doppler is negative. He advised Ancef 2 g IV every 12 hourly and discontinue vancomycin and ceftriaxone. 04/06/2019: Patient is still has left leg edema and induration. Erythema and tenderness is decreased in left lower leg. Left knee is tender anteriorly at infra patellar bursa region. Left knee active flexion is tender and limited beyond 10 degrees. No history of previous limitation in past. Orthopedic surgeon Dr. Laws consulted and discussed with him. 2. Coronary artery disease status post CABG, dyslipidemia and chronic diastolic CH: We will watch out for fluid overload. Resume Lasix and metolazone from tomorrow a.m. 3. Acute kidney injury on CKD stage III: Likely from cardiorenal/diuretics: Patient has a history of acute kidney injury on CKD during previous admission. Monitor Vanco level. Monitor kidney function, intake and output, and electrolytes. 04/05/2019: Patient seen by street light cleaner. Will discontinue losartan and keep Lasix as patient has history of heart failure. Started on hydralazine as per replacement of losartan. Kidney function is a stable but BUN went up from 33-38. Admitting creatinine 2.78. Creatinine 2.70. Today BMP and CBC are pending. 4. Type II DM with diabetic nephropathy: Patient had hyperglycemia, glucose 203. Accu-Cheks before meals and at bedtime and cover with Humalog sliding scale. Resume patient home dose of Lantus and lispro. 04/05/2019: Glucose is controlled. 5. Hypertension, continue on home amlodipine, and carvedilol. 6. DVT prophylaxis with super morbid obesity, BMI 56.0 kg, lifestyle modification recommended. Eliquis 2.5 mg twice daily for DVT prophylaxis Microbiology Past 72 Hours 04/04/19 10:53 Blood Culture (Wb) - Anticubital Right Blood Culture - Preliminary No growth in 48 hours. 04/04/19 10:28 Blood Culture (Wb) - Left Hand Blood Culture - Preliminary No growth in 48 hours. Laboratory Results 04/06/19 10:21: Sodium Pending, Potassium Pending, Chloride Pending, Carbon Dioxide Pending, Anion Gap Pending, BUN Pending, Creatinine Pending, Est GFR (MDRD) Af Amer Pending, Est GFR (MDRD) Non-Af Pending, BUN/Creatinine Ratio Pending, Glucose Pending, Calcium Pending Code Visit Inpatient E&M: [id number] [facility] H[facility] L3
[2019-04-06 11:02] LABS: Absolute Lymphocyte Count 1.46 X10^3/uL (0.83-4.51); Absolute Neutrophil Count 6.3 X10^3/uL (2.0-7.7); Basophil# 0.04 X10^3/uL; Basophil% 0.5 % (0-1); Eosinophil# 0.26 X10^3/uL; Eosinophils% 2.9 % (0-5); Hematocrit 38.2 % (40-54); Hemoglobin 12.3 g/dL (13.0-16.5); Lymphocyte # 1.46 X10^3/ul (4.0); Lymphocyte % 16.5 % (19-41); Mean Corp Hgb Conc 32.2 g/dL (32-36); Mean Corpuscular Hgb 28.7 pg (27.0-32.0); Mean Corpuscular Volume 89.3 fL (80-94); Mean Platelet Vol. 10.7 fl (6.2-12.0); Monocyte# 0.66 X10^3/uL; Monocyte% 7.5 % (0-10); NRBC Flagged by Analyzer 0 % (0-5); Neutrophil # 6.34 X10^3/uL (2.7-7.7); Neutrophil % 71.6 % (47-70); Platelet Count 196 K/mm3 (150-450); RBC Distribution Width CV 13.4 % (11.6-14.6); RBC Distribution Width SD 44.1 fl (35.1-43.9); Red Blood Count 4.28 M/mm3 (4.6-6.2); White Blood Count 8.9 K/mm3 (4.4-11.0)
[2019-04-06 11:06] LABS: Anion Gap 7 (5-15); BUN 40 mg/dL (7-18); BUN/Creat Ratio 15.1 RATIO (10-20); Calcium,Total 8.1 mg/dL (8.5-10.1); Chloride 107 mmol/L (98-107); Creatinine, Serum 2.65 mg/dL (0.70-1.30); EST Glomerular Filtration Rate 27 mL/min (>60); Est Glom Filt Rate - Afr Amer 32 mL/min (>60); Estimated Creatinine Clearance 29.45 ml/min; Glucose 238 mg/dL (74-106); Potassium 4.2 mmol/L (3.5-5.1); Sodium Level 136 mmol/L (136-145)
--- NOTE | 2019-04-06 11:53 | NURSING ---
pts blood sugar is 219, states he would like 25units of insulin
[2019-04-06] MEDS: Insulin Lispro 100 UNIT/ML INSULN.PEN 40 UNIT SC (12:36)
--- NOTE | 2019-04-06 12:47 | PCM.CONS.GEN ---
Reason for Consult Date of Consultation: 04/06/19 Reason for Consultation: Left knee prepatellar bursitis History of Present Illness: The patient is a 53 year old M obese diabetic kidney failure patient with left lower extremity lymphedema secondary to vein stripping previously began developing swelling and redness in the left leg 04/02/2019 he did proceed to the hospital on 04/04/2019 was started on IV antibiotics currently on Ancef. He has had a good response to the antibiotic in terms of his erythema which was marked but by the admitting physician and has subsided nearly 40%. He does complain of anterior knee pain to palpation anterior knee pain with flexion. He denies any deep joint pain with ambulation. He denies any history of gout but again is renal insufficient. He has had Doppler ultrasound negative for DVT. Denies any prior problems to the knee. He is on Eliquis 2.5 mg twice daily. He is severely obese. Past Medical History Past Medical History (Chronic Problems): Chronic Problems (Last Reviewed 12/06/18 @ 15:57 by Butch Schmitz DO) Chronic diastolic (congestive) heart failure (Chronic) Pure hypercholesterolemia (Chronic) Essential (primary) hypertension (Chronic) Dyspnea (Chronic) Left ventricular hypertrophy (Chronic) Secondary pulmonary arterial hypertension (Chronic) Atherosclerosis of coronary artery bypass graft without angina pectoris (Chronic) S/P CABG in 03/2014 with LOGAN to distal LAD, reverse SVG to first diagonal and second diagonal, obtuse marginal, and posterior descending artery; Lymphedema of left leg (Chronic) Morbid obesity (Chronic) Diabetes mellitus out of control (Chronic) Medical History: Medical History (Last Reviewed 12/06/18 @ 15:57 by Butch Schmitz DO) Chronic diastolic (congestive) heart failure (Chronic) I50.32 Pure hypercholesterolemia (Chronic) E78.00 Essential (primary) hypertension (Chronic) I10 Orthopnea (Acute) R06.01 Dyspnea (Chronic) R06.00 Chest pain (Acute) R07.9 Acute diastolic (congestive) heart failure (Acute) I50.31 Left ventricular hypertrophy (Chronic) I51.7 Secondary pulmonary arterial hypertension (Chronic) I27.21 Atherosclerosis of coronary artery bypass graft without angina pectoris (Chronic) I25.810 S/P CABG in 03/2014 with LOGAN to distal LAD, reverse SVG to first diagonal and second diagonal, obtuse marginal, and posterior descending artery; Lymphedema of left leg (Chronic) I89.0 Morbid obesity (Chronic) E66.01 Diabetes mellitus out of control (Chronic) E11.65 Anemia D64.9 CKD (chronic kidney disease) stage 2, GFR 60-89 ml/min N18.2 GERD (gastroesophageal reflux disease) K21.9 Morbid obesity E66.01 MELODIE (obstructive sleep apnea) G47.33 Old myocardial infarction I25.2 Prostatism N40.0 Type 2 diabetes mellitus E11.9 History of MRSA infection Z86.14 Right groin debridement Left leg cellulitis (Inactive) L03.116 Allergies pravastatin sodium [From Pravachol] Adverse Reaction (Intermediate, Verified 04/04/19 09:57) muscle aches ACHY MUSCLES Home Medications: Ambulatory Orders Medication Instructions Recorded Aspirin [Aspirin, Baby] 81 mg PO DAILY@0800 10/16/15 Atorvastatin Calcium [Lipitor] 40 mg PO QHS 10/16/15 Carvedilol [Coreg (Beta Kody)] 25 mg PO BID 08/29/17 Omeprazole [Prilosec] 20 mg PO DAILY 08/29/17 amlodipine 5 mg tablet 10 mg PO QDAY tab 02/07/18 Bupropion HCl [Bupropion Xl] 300 mg PO DAILY 12/06/18 Furosemide [Lasix] 80 mg PO BID 12/06/18 Potassium Chloride [K-Dur] 20 meq PO BID 12/06/18 Insulin Glargine [Lantus (BKC)] 80 units SUBCUT BID 04/04/19 Insulin Lispro [Humalog KwikPen] 30 - 50 unit SQ TIDCM 04/04/19 Losartan Potassium 100 mg PO DAILY 04/04/19 Surgical History: Surgical History (Last Reviewed 12/06/18 @ 15:57 by Butch Schmitz DO) H/O coronary artery bypass surgery (Resolved) Onset Date: ~03/2014 Z95.1 S/P CABG in 03/2014 with LOGAN to distal LAD, reverse SVG to first diagonal and second diagonal, obtuse marginal, and posterior descending artery at [place]; History of coronary artery stent placement Z95.5 PCI-Syent -[id number] History of incision and drainage Z98.890 right groin, MRSA History of open reduction and internal fixation (ORIF) procedure Z98.890 History of tonsillectomy Z90.89 Surgical History: coronary bypass surgery, - - Patient underwent coronary stent placement in 2008. He underwent coronary revascularization in March 2014, at which time 5 coronary bypass grafts were performed. Patient has a history of right groin wound debridement for MRSA. Psychiatric History: No pertinent psych hx Lives: Spouse/ Significant Other Smoking Status: Never smoker - *Family History Paternal Family History: Family History (Last Reviewed 12/06/18 @ 15:58 by Butch Schmitz DO) Father Hypertension History Items: Hypertension Maternal Family History: Family History (Last Reviewed 12/06/18 @ 15:58 by Butch Schmitz DO) Father Hypertension History Items: Cancer - brain, Seizures Objective: Discussed aspiration of bursa with patient and he verbally agreed was present as well. Patient's anterior knee was prepped with alcohol Betadine and alcohol and an 18-gauge needle was used to aspirate 12 cc of cloudy but not purulent fluid. This will be sent off for stat Gram stain cell count aerobic anaerobic culture and crystal analysis. - Physical Exam Vitals/I&O's: Vital Signs Temp Pulse Resp BP Pulse Ox 97.7 F L 67 18 147/71 H 98 04/06/19 08:08 04/06/19 08:08 04/06/19 08:08 04/06/19 08:08 04/06/19 08:08 Oxygen Delivery Method Room Air Weight: 353 lb Body Mass Index (BMI) 55.3 Intake and Output for Last 24 Hours 04/04/19 04/05/19 04/06/19 23:59 23:59 23:59 Intake Total 1262.5 / 1662.5 2886.5 / 2886.5 1110 / 1110 Output Total 3350 / 3350 1999 Balance 1262.5 / 862.5 -463.5 / -463.5 -890 / -890 Extremities: - - Edema left lower extremity erythema has subsided from demarcation there is no erythema about the knee or prepatellar area. There is prepatellar bursal fluid he is tender in this area. He does not have pain in the deep knee joint with range of motion. States it is only the first movement of the knee that causes pain and then he can walk. There is no joint effusion. Microbiology Past 72 Hours 04/04/19 10:53 Blood Culture (Wb) - Anticubital Right Blood Culture - Preliminary No growth in 48 hours. 04/04/19 10:28 Blood Culture (Wb) - Left Hand Blood Culture - Preliminary No growth in 48 hours. Laboratory Results 04/06/19 10:21: Sodium 136, Potassium 4.2, Chloride 107, Carbon Dioxide 22.0, Anion Gap 7, BUN 40 H, Creatinine 2.65 H, Estim Creat Clear Calc 29.45, Est GFR (MDRD) Af Amer 32 L, Est GFR (MDRD) Non-Af 27 L, BUN/Creatinine Ratio 15.1, Glucose 238 H, Calcium 8.1 L 04/06/19 10:21: C-React Prot Ext Range 125.00 H 04/06/19 10:21: WBC 8.9, RBC 4.28 L, Hgb 12.3 L, Hct 38.2 L, MCV 89.3 D, MCH 28.7, MCHC 32.2, RDW Std Deviation 44.1 H, RDW Coeff of Eva 13.4, Plt Count 196, MPV 10.7, Immature Gran % (Auto) 1.000 H, Neut % (Auto) 71.6 H, Lymph % (Auto) 16.5 L, Nelson % (Auto) 7.5, Eos % (Auto) 2.9, Baso % (Auto) 0.5, Absolute Neuts (auto) 6.3, Absolute Lymphs (auto) 1.46, Nucleated RBC % 0 Current Medications Acetaminophen (Tylenol) 650 mg PO Q6H PRN PRN PRN Reason: Pain Score 1-3/Temp > 100.7 F Al Hydroxide/Mg Hydroxide (Mylanta Ii) 30 ml PO Q6H PRN PRN PRN Reason: Gastric Burning Albuterol Sulfate (Ventolin Aerosols) 2.5 mg INHALATION Q2H PRN PRN PRN Reason: Shortness of Breath/Wheezing Amlodipine Besylate (Norvasc) 10 mg PO DAILY [facility] Last Admin: 04/06/19 08:11 Dose: 10 mg Documented by: Apixaban (Eliquis) 2.5 mg PO BID [facility] Last Admin: 04/06/19 08:11 Dose: 2.5 mg Documented by: Aspirin (Aspirin, Baby) 81 mg PO DAILY@0800 [facility] Last Admin: 04/06/19 08:10 Dose: 81 mg Documented by: Atorvastatin Calcium (Lipitor) 40 mg PO QHS [facility] Last Admin: 04/05/19 21:53 Dose: 40 mg Documented by: Bupropion HCl (Wellbutrin Xl) 300 mg PO DAILY [facility] Last Admin: 04/06/19 08:11 Dose: 300 mg Documented by: Carvedilol (Coreg) 25 mg PO BID [facility] Last Admin: 04/06/19 08:10 Dose: 25 mg Documented by: Furosemide (Lasix) 80 mg PO BIDLX [facility] Last Admin: 04/06/19 08:11 Dose: 80 mg Documented by: Glucagon () 1 mg IM .X1 PRN PRN Reason: Hypoglycemia Hydralazine HCl (Apresoline Iv) 10 mg IV Q4H PRN PRN PRN Reason: SBP more than 180 mmHg Hydralazine HCl (Apresoline) 50 mg PO BID [facility] Sodium Chloride () 250 mls @ 15 mls/hr IV .[id number] PRN PRN Reason: Saline Flush Last Infusion: 04/05/19 12:30 Dose: 0 mls/hr Documented by: Sodium Chloride () 250 mls @ 15 mls/hr IV .[id number] PRN PRN Reason: Additional IVPB Infusion Dextrose (Dextrose 10%-Water) 250 mls @ 999 mls/hr IV .Q16M PRN; Protocol PRN Reason: HYPOGLYCEMIA Cefazolin Sodium 2 gm/ Sodium (Chloride) 110 mls @ 150 mls/hr IV Q8 [facility] Insulin Glargine (Lantus (Bkc)) 80 units SC BID [facility] Last Admin: 04/06/19 09:52 Dose: 80 units Documented by: Insulin Human Lispro (Humalog Kwikpen (Bk)) 0 unit SC ACHS [facility]; Protocol Last Admin: 04/06/19 11:54 Dose: Not Given Documented by: Insulin Human Lispro (Humalog Kwikpen (Bk)) 40 unit SC TIDCM [facility] Last Admin: 04/06/19 12:36 Dose: 25 u Documented by: Morphine Sulfate () 2 mg IV Q3H PRN PRN PRN Reason: Pain Score 6-10/10 Nitroglycerin (Nitrostat) 0.4 mg SUBLINGUAL Q5M PRN PRN Reason: CARDIAC/CHEST PAIN Ondansetron HCl (Zofran) 4 mg IV Q8H PRN PRN PRN Reason: NAUSEA/VOMITING Oxycodone HCl (Oxyir) 5 mg PO Q4H PRN PRN PRN Reason: Pain Score 4-5/10 Last Admin: 04/05/19 19:34 Dose: 5 mg Documented by: Pantoprazole Sodium (Protonix) 20 mg PO DAILY [facility] Last Admin: 04/06/19 08:10 Dose: 20 mg Documented by: Potassium Chloride (K-Dur) 20 meq PO BIDCM [facility] Last Admin: 04/06/19 08:10 Dose: 20 meq Documented by: Prochlorperazine Edisylate (Compazine Iv) 5 mg IV Q4H PRN PRN PRN Reason: Breakthrough nausea/vomiting Senna/Docusate Sodium (Senokot-S, Coleen-Colace) 2 tablet PO BID PRN PRN PRN Reason: Constipation Sodium Chloride () 10 - 40 ml IV UD PRN PRN Reason: SALINE FLUSH Last Admin: 04/06/19 09:51 Dose: 10 ml Documented by: Assessment/Plan All Active Problems (Last Reviewed 12/06/18 @ 15:57 by Butch Schmitz DO) Cellulitis of left lower extremity without foot (Acute) Cellulitis (Acute) Sepsis (Acute) Orthopnea (Acute) Chest pain (Acute) Acute diastolic (congestive) heart failure (Acute) H/O coronary artery bypass surgery (Resolved ~03/2014) GERD (gastroesophageal reflux disease) (Resolved) Severe sepsis (Resolved) Left lower extremity chronic lymphedema with acute cellulitis MRSA hx Blood cx negative on Ancef per infectious disease Possible early prepatellar septic bursitis versus aseptic bursitis/ gout Aspirated and sent off for stat Gram stain cell count aerobic anaerobic culture and crystal analysis. No sign of septic arthritis. Continue antibiotic Nearly all of the prepatellar fluid was able to be aspirated Encourage range of motion weightbearing as tolerated Further recommendations to follow
[2019-04-06 14:07] LABS: AUTO B FLUID DILUENT BKGD CT WBC <0.1 RBC <0.01 (W<.1,R<.01); Pathologist Comment May follow; Source- Body Fluid SYNOVIAL
[2019-04-06 14:08] LABS: Appearance /Synovial Fluid Turbid (CLEAR); Color / Synovial Fluid Yellow (Pale Yellow); RBC /Synovial Fluid 0.008 10^6/uL (0); Synovial Fld Mononuclear WBC # 4.092 10^3/ul; Synovial Fld Mononuclear WBC % 4.1 %; Synovial Fld Polynuclear WBC % 87.9 %
[2019-04-06 14:26] LABS: Lymph 1 %; Monocyte /Synovial Fluid 8 %; Neutrophil 91 % (0-25)
--- NOTE | 2019-04-06 16:38 | NURSING ---
pt blood sugar is 71 per self meter. Holding novolog 120cc drink given
[2019-04-06] MEDS: hydrALAZINE 50 MG Tablet PO (21:57)
[2019-04-06] MEDS: Atorvastatin Calcium 40 MG Tablet PO (21:57)
[2019-04-06] MEDS: oxyCODONE 5 MG Tablet PO (22:01)
[2019-04-07] VITALS (7 sets, daily range): BP systolic 151–167; BP diastolic 75–79; PULSE 65–82; RESP 16–18; TEMP 36.5–36.8; O2SAT 95–98
[2019-04-07] MEDS: Cefazolin 2 GM in 0.9% Normal Saline 100 ML IV ×3 (06:22→21:49)
[2019-04-07] MEDS: 0.9% Saline Lock 10 ML Syringe IV ×3 (06:25→14:30)
[2019-04-07 07:11] LABS: Absolute Lymphocyte Count 1.58 X10^3/uL (0.83-4.51); Absolute Neutrophil Count 5.2 X10^3/uL (2.0-7.7); Basophil# 0.06 X10^3/uL; Basophil% 0.8 % (0-1); Eosinophil# 0.28 X10^3/uL; Eosinophils% 3.5 % (0-5); Hemoglobin 12.5 g/dL (13.0-16.5); Lymphocyte # 1.58 X10^3/ul (4.0); Mean Corp Hgb Conc 32.1 g/dL (32-36); Mean Corpuscular Hgb 28.2 pg (27.0-32.0); Mean Platelet Vol. 10.5 fl (6.2-12.0); Monocyte# 0.75 X10^3/uL; Monocyte% 9.5 % (0-10); NRBC Flagged by Analyzer 0 % (0-5); Neutrophil # 5.15 X10^3/uL (2.7-7.7); Neutrophil % 65.3 % (47-70); Platelet Count 222 K/mm3 (150-450); RBC Distribution Width CV 13.4 % (11.6-14.6); RBC Distribution Width SD 43.5 fl (35.1-43.9); Red Blood Count 4.43 M/mm3 (4.6-6.2); White Blood Count 7.9 K/mm3 (4.4-11.0)
[2019-04-07 07:46] LABS: Albumin, Serum 1.6 g/dL (3.2-5.0); BUN 37 mg/dL (7-18); BUN/Creat Ratio 15.5 RATIO (10-20); Calcium,Total 8.3 mg/dL (8.5-10.1); Chloride 108 mmol/L (98-107); Creatinine, Serum 2.38 mg/dL (0.70-1.30); EST Glomerular Filtration Rate 30 mL/min (>60); Est Glom Filt Rate - Afr Amer 37 mL/min (>60); Estimated Creatinine Clearance 32.79 ml/min; Glucose 127 mg/dL (74-106); Phosphorus 4.5 mg/dL (2.5-4.9); Potassium 3.8 mmol/L (3.5-5.1); Sodium Level 138 mmol/L (136-145)
[2019-04-07] MEDS: Aspirin 81 MG TAB.CHEW PO (07:59)
[2019-04-07] MEDS: Pantoprazole Sodium 20 MG Tablet PO (09:28)
[2019-04-07] MEDS: buPROPion (XL) 300 MG TABLET.XL PO (09:28)
[2019-04-07] MEDS: amLODIPine 5 MG Tablet 10 MG PO (09:29)
[2019-04-07] MEDS: Carvedilol 25 MG Tablet PO ×2 (09:29→21:56)
[2019-04-07] MEDS: Furosemide 80 MG Tablet PO ×2 (09:29→17:24)
[2019-04-07] MEDS: APIXABAN 2.5 MG TABLET PO (09:29)
[2019-04-07] MEDS: hydrALAZINE 50 MG Tablet PO ×3 (09:29→21:57)
--- NOTE | 2019-04-07 11:50 | PCM.PN.HOSP ---
Reason for Visit: Left leg cellulitis with possible prepatellar bursitis. No fever or chills. Objective: No fever or chills. Blood pressure slightly elevated. Left leg erythema and tenderness much better. Still complains of pain over prepatellar bursa. Vitals/I&O's: Vital Signs Temp Pulse Resp BP Pulse Ox 97.7 F L 68 18 167/75 H 98 04/07/19 07:54 04/07/19 09:29 04/07/19 07:54 04/07/19 07:54 04/07/19 07:54 Oxygen Delivery Method Room Air Weight: 352 lb 11.834 oz Body Mass Index (BMI) 55.3 Intake and Output for Last 24 Hours 04/05/19 04/06/19 04/07/19 23:59 23:59 23:59 Intake Total 2886.5 / 2886.5 2330 / 2330 110 / 110 Output Total 3350 / 3350 3000 / 3475 900 / 900 Balance -463.5 / -463.5 -670 / -1145 -790 / -790 General: Alert, Oriented x3, Cooperative HEENT: Atraumatic, PERRLA, EOMI, Normocephalic Neck: Supple, No JVD, Negative Carotid Bruits Lungs: Clear to auscultation, No rhonchi, No wheeze, No rales, Diminished Cardiovascular: Regular rate, Regular Rhythm, Normal S1, Normal S2, No murmurs Abdomen: Bowel Sounds Present, Soft, Non Tender Extremities: No edema, Capillary Refill Less than 3 Seconds Skin: No rashes, No breakdown Musculoskeletal: Arthritic Changes, Tenderness - Tenderness over left knee anteriorly. Neurological: Cranial nerves II-XII grossly intact, Deep Tendon Reflexes 2+/4 and Symmetrical, Neuro grossly intact Psych/Mental Status: Normal Affect, Appropriate Microbiology Past 72 Hours 04/06/19 13:09 Fluid - Bursa Gram Stain - Final 04/04/19 10:53 Blood Culture (Wb) - Anticubital Right Blood Culture - Preliminary No growth in 48 hours. 04/04/19 10:28 Blood Culture (Wb) - Left Hand Blood Culture - Preliminary No growth in 48 hours. Laboratory Results 04/06/19 13:08: Fluid Source Cancelled, Fluid Color Cancelled, Fluid Appearance Cancelled, Fluid WBC Cancelled, Fluid RBC Cancelled, Fluid Tot Cell Count Cancelled, Fld Polynuclear WBCs # Cancelled, Fld Polynuclear WBCs % Cancelled, Fluid Mononuclear WBCs Cancelled, Fld Mononuclear WBCs % Cancelled, Fluid Neutrophils Cancelled, Fluid Lymphocytes Cancelled, Fluid Monocytes Cancelled, Fluid Plasma Cells Cancelled, Fluid Macrophages Cancelled, Fld Mesothelial Cells Cancelled, Fluid Other Cells Cancelled, Fluid Crystals SEE PATH REV, Fluid Crystal Source SYNOVIAL, Fl Pathologist Comment Cancelled, Fluid Comment 2 Cancelled, Synovial Source Not Reportable, Synovial Color Yellow, Synovial Appearance Turbid, Synovial WBC 27.4040 H, Synovial RBC 0.008 H, Synovial Tot Cell Ct 27.7400 H, Synov Polynuclear WBCs 12.100, Synov Mononuclear WBCs 4.092, Synovial Neutrophils 91 H, Synovial Lymphocytes 1, Synovial Monocytes 8, Synovial Polynuclear % 87.9, Synovial Mononuclear % 4.1, Synovial Path Comment May follow 04/07/19 06:25: Sodium 138, Potassium 3.8, Chloride 108 H, Carbon Dioxide 21.0, BUN 37 H, Creatinine 2.38 H, Estim Creat Clear Calc 32.79, Est GFR (MDRD) Af Amer 37 L, Est GFR (MDRD) Non-Af 30 L, BUN/Creatinine Ratio 15.5, Glucose 127 H, Calcium 8.3 L, Phosphorus 4.5, Albumin 1.6 L 04/07/19 06:25: WBC 7.9, RBC 4.43 L, Hgb 12.5 L, Hct 39.0 L, MCV 88.0, MCH 28.2, MCHC 32.1, RDW Std Deviation 43.5, RDW Coeff of Eva 13.4, Plt Count 222, MPV 10.5, Immature Gran % (Auto) 0.900, Neut % (Auto) 65.3, Lymph % (Auto) 20.0, Becker % (Auto) 9.5, Eos % (Auto) 3.5, Baso % (Auto) 0.8, Absolute Neuts (auto) 5.2, Absolute Lymphs (auto) 1.58, Nucleated RBC % 0 Current Medications Acetaminophen (Tylenol) 650 mg PO Q6H PRN PRN PRN Reason: Pain Score 1-3/Temp > 100.7 F Al Hydroxide/Mg Hydroxide (Mylanta Ii) 30 ml PO Q6H PRN PRN PRN Reason: Gastric Burning Albuterol Sulfate (Ventolin Aerosols) 2.5 mg INHALATION Q2H PRN PRN PRN Reason: Shortness of Breath/Wheezing Amlodipine Besylate (Norvasc) 10 mg PO DAILY [facility] Last Admin: 04/07/19 09:29 Dose: 10 mg Documented by: Apixaban (Eliquis) 2.5 mg PO BID [facility] Last Admin: 04/07/19 09:29 Dose: 2.5 mg Documented by: Aspirin (Aspirin, Baby) 81 mg PO DAILY@0800 [facility] Last Admin: 04/07/19 07:59 Dose: 81 mg Documented by: Atorvastatin Calcium (Lipitor) 40 mg PO QHS [facility] Last Admin: 04/06/19 21:57 Dose: 40 mg Documented by: Bupropion HCl (Wellbutrin Xl) 300 mg PO DAILY [facility] Last Admin: 04/07/19 09:28 Dose: 300 mg Documented by: Carvedilol (Coreg) 25 mg PO BID [facility] Last Admin: 04/07/19 09:29 Dose: 25 mg Documented by: Furosemide (Lasix) 80 mg PO BIDLX [facility] Last Admin: 04/07/19 09:29 Dose: 80 mg Documented by: Glucagon () 1 mg IM .X1 PRN PRN Reason: Hypoglycemia Hydralazine HCl (Apresoline Iv) 10 mg IV Q4H PRN PRN PRN Reason: SBP more than 180 mmHg Hydralazine HCl (Apresoline) 50 mg PO BID [facility] Last Admin: 04/07/19 09:29 Dose: 50 mg Documented by: Sodium Chloride () 250 mls @ 15 mls/hr IV .[id number] PRN PRN Reason: Saline Flush Last Infusion: 04/05/19 12:30 Dose: 0 mls/hr Documented by: Sodium Chloride () 250 mls @ 15 mls/hr IV .[id number] PRN PRN Reason: Additional IVPB Infusion Dextrose (Dextrose 10%-Water) 250 mls @ 999 mls/hr IV .Q16M PRN; Protocol PRN Reason: HYPOGLYCEMIA Cefazolin Sodium 2 gm/ Sodium (Chloride) 110 mls @ 150 mls/hr IV Q8 [facility] Last Infusion: 04/07/19 07:06 Dose: Infused Documented by: Insulin Glargine (Lantus (Bkc)) 80 units SC BID [facility] Last Admin: 04/07/19 09:28 Dose: 80 units Documented by: Insulin Human Lispro (Humalog Kwikpen (Bkc)) 0 unit SC ACHS [facility]; Protocol Last Admin: 04/07/19 06:31 Dose: Not Given Documented by: Insulin Human Lispro (Humalog Kwikpen (Bkc)) 40 unit SC TIDCM [facility] Last Admin: 04/07/19 07:57 Dose: Not Given Documented by: Morphine Sulfate () 2 mg IV Q3H PRN PRN PRN Reason: Pain Score 6-10/10 Nitroglycerin (Nitrostat) 0.4 mg SUBLINGUAL Q5M PRN PRN Reason: CARDIAC/CHEST PAIN Ondansetron HCl (Zofran) 4 mg IV Q8H PRN PRN PRN Reason: NAUSEA/VOMITING Oxycodone HCl (Oxyir) 5 mg PO Q4H PRN PRN PRN Reason: Pain Score 4-5/10 Last Admin: 04/06/19 22:01 Dose: 5 mg Documented by: Pantoprazole Sodium (Protonix) 20 mg PO DAILY [facility] Last Admin: 04/07/19 09:28 Dose: 20 mg Documented by: [facility] Last Admin: 04/07/19 07:59 Dose: 20 meq Documented by: Prochlorperazine Edisylate (Compazine Iv) 5 mg IV Q4H PRN PRN PRN Reason: Breakthrough nausea/vomiting Senna/Docusate Sodium (Senokot-S, Coleen-Colace) 2 tablet PO BID PRN PRN PRN Reason: Constipation Sodium Chloride () 10 - 40 ml IV UD PRN PRN Reason: SALINE FLUSH Last Admin: 04/07/19 06:26 Dose: 10 ml Documented by: STROKE Vital Signs/Narrative: Vital Signs Temp Pulse Resp BP Pulse Ox 04/07/19 09:29 68 04/07/19 07:54 97.7 F L 68 18 167/75 H 98 Medical Necessity - Tobacco Use Smoking Status: Never smoker Assessment/Plan All Active Problems (Last Reviewed 12/06/18 @ 15:57 by Butch Schmitz DO) Cellulitis of left lower extremity without foot (Acute) Cellulitis (Acute) Sepsis (Acute) Orthopnea (Acute) Chest pain (Acute) Acute diastolic (congestive) heart failure (Acute) H/O coronary artery bypass surgery (Resolved ~03/2014) GERD (gastroesophageal reflux disease) (Resolved) Severe sepsis (Resolved) The patient is a 53 year old M with history of recurrent flatness of left lower leg with lymphedema after he had vein harvest from left leg for coronary artery bypass in 2013 was admitted with left leg cellulitis and acute kidney injury on CKD stage III. 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 The patient was last admitted between 12/06 to 12/10 for severe sepsis secondary to cellulitis of left lower extremity and TALITA on CKD stage III In ED, temperature 97.8 Fahrenheit, no tachycardia. Blood pressure stable 149/71 with no tachypnea or hypoxia. Leukocytosis 16.5 thousand with left shift. Sodium 132, BUN/creatinine 33/2.78. Glucose 203. Lactic acid 1.7. Patient got 1 dose of vancomycin and Zosyn in ER and admitted. 1. Sepsis secondary to left lower extremity cellulitis: Patient is being admitted on MedSurg floor. As patient is history of MRSA, will continue vancomycin. Ceftriaxone is added for gram-negative coverage. Venous Doppler ordered to rule out DVT. Patient denies any previous history of DVT/PE. IV fluid normal saline at 100 mL/h for 1 L and then reevaluate. 04/05/2019: Patient was seen by ID. He thinks patient had strep left leg cellulitis. Venous Doppler is negative. He advised Ancef 2 g IV every 12 hourly and discontinue vancomycin and ceftriaxone. 04/06/2019: Patient is still has left leg edema and induration. Erythema and tenderness is decreased in left lower leg. Left knee is tender anteriorly at infra patellar bursa region. Left knee active flexion is tender and limited beyond 10 degrees. No history of previous limitation in past. Orthopedic surgeon Dr. Laws consulted and discussed with him. CRP elevated. 04/07/2019: Patient was seen by orthopedic surgeon. Had left prepatellar bursa aspirated and sent for synovial fluid analysis and culture. Synovial WBC 27,000, 88% polynuclear, mononuclear 4%. Gram stain of fluid culture shows 4+ white blood cells but no organisms. Fluid crystals pending. Eliquis 2.5 mg twice daily for DVT prophylaxis dose was stopped in anticipation in case if patient needs left knee washout. 2. Coronary artery disease status post CABG, dyslipidemia and chronic diastolic CH: We will watch out for fluid overload. Resume Lasix and metolazone from tomorrow a.m. 3. Acute kidney injury on CKD stage III: Likely from cardiorenal/diuretics: Patient has a history of acute kidney injury on CKD during previous admission. Monitor Vanco level. Monitor kidney function, intake and output, and electrolytes. 04/05/2019: Patient seen by securities broker. Will discontinue losartan and keep Lasix as patient has history of heart failure. Started on hydralazine as per replacement of losartan. Kidney function is a stable but BUN went up from 33-38. Admitting creatinine 2.78. Creatinine 2.70. 04/07/2019: Creatinine is improving. BUN/creatinine 37/2.38. 4. Type II DM with diabetic nephropathy: Patient had hyperglycemia, glucose 203. Accu-Cheks before meals and at bedtime and cover with Humalog sliding scale. Resume patient home dose of Lantus and lispro. 04/05/2019: Glucose is controlled. 5. Hypertension, continue on home amlodipine, and carvedilol. Blood pressure slightly elevated. Hydralazine dose increased to 50 mg 3 times daily. 6. DVT prophylaxis with super morbid obesity, BMI 56.0 kg, lifestyle modification recommended. Eliquis 2.5 mg twice daily for DVT prophylaxis Microbiology Past 72 Hours 04/06/19 13:09 Fluid - Bursa Gram Stain - Final 04/04/19 10:53 Blood Culture (Wb) - Anticubital Right Blood Culture - Preliminary No growth in 48 hours. 04/04/19 10:28 Blood Culture (Wb) - Left Hand Blood Culture - Preliminary No growth in 48 hours. Laboratory Results Synovial WBC 27.4040 H, Synovial RBC 0.008 H, Synovial Tot Cell Ct 27.7400 H, Synov Polynuclear WBCs 12.100, Synov Mononuclear WBCs 4.092, Synovial Neutrophils 91 H, Synovial Lymphocytes 1, Synovial Monocytes 8, Synovial Polynuclear % 87.9, Synovial Mononuclear % 4.1, Synovial Path Comment May follow 04/07/19 06:25: Sodium 138, Potassium 3.8, Chloride 108 H, Carbon Dioxide 21.0, BUN 37 H, Creatinine 2.38 H, Estim Creat Clear Calc 32.79, Est GFR (MDRD) Af Amer 37 L, Est GFR (MDRD) Non-Af 30 L, BUN/Creatinine Ratio 15.5, Glucose 127 H, Calcium 8.3 L, Phosphorus 4.5, Albumin 1.6 L 04/07/19 06:25: WBC 7.9, RBC 4.43 L, Hgb 12.5 L, Hct 39.0 L, MCV 88.0, MCH 28.2, MCHC 32.1, RDW Std Deviation 43.5, RDW Coeff of Eva 13.4, Plt Count 222, MPV 10.5, Immature Gran % (Auto) 0.900, Neut % (Auto) 65.3, Lymph % (Auto) 20.0, Becker % (Auto) 9.5, Eos % (Auto) 3.5, Baso % (Auto) 0.8, Absolute Neuts (auto) 5.2, Absolute Lymphs (auto) 1.58, Nucleated RBC % 0 Code Visit Inpatient E&M: 00354 Subs Hosp L2
[2019-04-07] MEDS: Insulin Lispro 100 UNIT/ML INSULN.PEN 40 UNIT SC (12:42)
--- NOTE | 2019-04-07 13:18 | PCM.PN.REN ---
Subjective: Persistent left knee pain to touch, flexion, ambulation. Aspiration of prepatellar area by Ortho yesterday. Remains on IV antibiotic therapy. Continues to have cellulitis left lower extremity but is improving. No recent fever or chills. - Physical Exam Vitals/I&O's: Vital Signs Temp Pulse Resp BP Pulse Ox 97.7 F L 68 18 167/75 H 98 04/07/19 07:54 04/07/19 09:29 04/07/19 07:54 04/07/19 07:54 04/07/19 07:54 Oxygen Delivery Method Room Air Weight: 160 kg Body Mass Index (BMI) 55.3 Intake and Output for Last 24 Hours 04/05/19 04/06/19 04/07/19 23:59 23:59 23:59 Intake Total 2886.5 / 2886.5 2330 / 2330 1010 / 1010 Output Total 3350 / 3350 3000 / 3475 1800 / 1800 Balance -463.5 / -463.5 -670 / -1145 -790 / -790 General: Alert, Oriented x3, Cooperative, No apparent distress Lungs: Clear to auscultation Cardiovascular: Regular rate Abdomen: Bowel Sounds Present, Soft, Non Tender, Obese Extremities: Edema - Left lower extremity Skin: - - Cellulitis left lower extremity improving on antibiotics Musculoskeletal: Tenderness - Left knee Psych/Mental Status: Alert and oriented to time, place, person, mood and affect Microbiology Past 72 Hours 04/06/19 13:09 Fluid - Bursa Gram Stain - Final 04/06/19 13:09 Fluid - Bursa Body Fluid Culture - Preliminary No growth-Final to follow 04/04/19 10:53 Blood Culture (Wb) - Anticubital Right Blood Culture - Preliminary No growth in 48 hours. 04/04/19 10:28 Blood Culture (Wb) - Left Hand Blood Culture - Preliminary No growth in 48 hours. Laboratory Results 04/06/19 13:08: Fluid Source Cancelled, Fluid Color Cancelled, Fluid Appearance Cancelled, Fluid WBC Cancelled, Fluid RBC Cancelled, Fluid Tot Cell Count Cancelled, Fld Polynuclear WBCs # Cancelled, Fld Polynuclear WBCs % Cancelled, Fluid Mononuclear WBCs Cancelled, Fld Mononuclear WBCs % Cancelled, Fluid Neutrophils Cancelled, Fluid Lymphocytes Cancelled, Fluid Monocytes Cancelled, Fluid Plasma Cells Cancelled, Fluid Macrophages Cancelled, Fld Mesothelial Cells Cancelled, Fluid Other Cells Cancelled, Fluid Crystals SEE PATH REV, Fluid Crystal Source SYNOVIAL, Fl Pathologist Comment Cancelled, Fluid Comment 2 Cancelled, Synovial Source Not Reportable, Synovial Color Yellow, Synovial Appearance Turbid, Synovial WBC 27.4040 H, Synovial RBC 0.008 H, Synovial Tot Cell Ct 27.7400 H, Synov Polynuclear WBCs 12.100, Synov Mononuclear WBCs 4.092, Synovial Neutrophils 91 H, Synovial Lymphocytes 1, Synovial Monocytes 8, Synovial Polynuclear % 87.9, Synovial Mononuclear % 4.1, Synovial Path Comment May follow 04/07/19 06:25: Sodium 138, Potassium 3.8, Chloride 108 H, Carbon Dioxide 21.0, BUN 37 H, Creatinine 2.38 H, Estim Creat Clear Calc 32.79, Est GFR (MDRD) Af Amer 37 L, Est GFR (MDRD) Non-Af 30 L, BUN/Creatinine Ratio 15.5, Glucose 127 H, Calcium 8.3 L, Phosphorus 4.5, Albumin 1.6 L 04/07/19 06:25: WBC 7.9, RBC 4.43 L, Hgb 12.5 L, Hct 39.0 L, MCV 88.0, MCH 28.2, MCHC 32.1, RDW Std Deviation 43.5, RDW Coeff of Eva 13.4, Plt Count 222, MPV 10.5, Immature Gran % (Auto) 0.900, Neut % (Auto) 65.3, Lymph % (Auto) 20.0, Reagan % (Auto) 9.5, Eos % (Auto) 3.5, Baso % (Auto) 0.8, Absolute Neuts (auto) 5.2, Absolute Lymphs (auto) 1.58, Nucleated RBC % 0 Current Medications Acetaminophen (Tylenol) 650 mg PO Q6H PRN PRN PRN Reason: Pain Score 1-3/Temp > 100.7 F Al Hydroxide/Mg Hydroxide (Mylanta Ii) 30 ml PO Q6H PRN PRN PRN Reason: Gastric Burning Albuterol Sulfate (Ventolin Aerosols) 2.5 mg INHALATION Q2H PRN PRN PRN Reason: Shortness of Breath/Wheezing Amlodipine Besylate (Norvasc) 10 mg PO DAILY [facility] Last Admin: 04/07/19 09:29 Dose: 10 mg Documented by: Aspirin (Aspirin, Baby) 81 mg PO DAILY@0800 [facility] Last Admin: 04/07/19 07:59 Dose: 81 mg Documented by: Atorvastatin Calcium (Lipitor) 40 mg PO QHS [facility] Last Admin: 04/06/19 21:57 Dose: 40 mg Documented by: Bupropion HCl (Wellbutrin Xl) 300 mg PO DAILY [facility] Last Admin: 04/07/19 09:28 Dose: 300 mg Documented by: Carvedilol (Coreg) 25 mg PO BID [facility] Last Admin: 04/07/19 09:29 Dose: 25 mg Documented by: Furosemide (Lasix) 80 mg PO BIDLX [facility] Last Admin: 04/07/19 09:29 Dose: 80 mg Documented by: Glucagon () 1 mg IM .X1 PRN PRN Reason: Hypoglycemia Hydralazine HCl (Apresoline Iv) 10 mg IV Q4H PRN PRN PRN Reason: SBP more than 180 mmHg Hydralazine HCl (Apresoline) 50 mg PO TID [facility] Sodium Chloride () 250 mls @ 15 mls/hr IV .[id number] PRN PRN Reason: Saline Flush Last Infusion: 04/05/19 12:30 Dose: 0 mls/hr Documented by: Sodium Chloride () 250 mls @ 15 mls/hr IV .[id number] PRN PRN Reason: Additional IVPB Infusion Dextrose (Dextrose 10%-Water) 250 mls @ 999 mls/hr IV .Q16M PRN; Protocol PRN Reason: HYPOGLYCEMIA Cefazolin Sodium 2 gm/ Sodium (Chloride) 110 mls @ 150 mls/hr IV Q8 [facility] Last Infusion: 04/07/19 07:06 Dose: Infused Documented by: Insulin Glargine (Lantus (Bkc)) 80 units SC BID [facility] Last Admin: 04/07/19 09:28 Dose: 80 units Documented by: Insulin Human Lispro (Humalog Kwikpen (Bkc)) 0 unit SC ACHS [facility]; Protocol Last Admin: 04/07/19 12:44 Dose: Not Given Documented by: Insulin Human Lispro (Humalog Kwikpen (Bkc)) 40 unit SC TIDCM [facility] Last Admin: 04/07/19 12:42 Dose: 10 u Documented by: Morphine Sulfate () 2 mg IV Q3H PRN PRN PRN Reason: Pain Score 6-10/10 Nitroglycerin (Nitrostat) 0.4 mg SUBLINGUAL Q5M PRN PRN Reason: CARDIAC/CHEST PAIN Ondansetron HCl (Zofran) 4 mg IV Q8H PRN PRN PRN Reason: NAUSEA/VOMITING Oxycodone HCl (Oxyir) 5 mg PO Q4H PRN PRN PRN Reason: Pain Score 4-5/10 Last Admin: 04/06/19 22:01 Dose: 5 mg Documented by: Pantoprazole Sodium (Protonix) 20 mg PO DAILY [facility] Last Admin: 04/07/19 09:28 Dose: 20 mg Documented by: [facility] Last Admin: 04/07/19 07:59 Dose: 20 meq Documented by: Prochlorperazine Edisylate (Compazine Iv) 5 mg IV Q4H PRN PRN PRN Reason: Breakthrough nausea/vomiting Senna/Docusate Sodium (Senokot-S, Coleen-Colace) 2 tablet PO BID PRN PRN PRN Reason: Constipation Sodium Chloride () 10 - 40 ml IV UD PRN PRN Reason: SALINE FLUSH Last Admin: 04/07/19 06:26 Dose: 10 ml Documented by: Medical Necessity - Tobacco Use Smoking Status: Never smoker Assessment/Plan All Active Problems (Last Reviewed 12/06/18 @ 15:57 by Butch Schmitz DO) Cellulitis of left lower extremity without foot (Acute) Cellulitis (Acute) Sepsis (Acute) Orthopnea (Acute) Chest pain (Acute) Acute diastolic (congestive) heart failure (Acute) H/O coronary artery bypass surgery (Resolved ~03/2014) GERD (gastroesophageal reflux disease) (Resolved) Severe sepsis (Resolved) 1. Acute on CKD stage 3 due to acute cellulitis. Creatinine continues to improve down to 2.38 on off losartan. Diuresing well on Lasix twice a day orally. H 2. Acute cellulitis LLE continue iv antbx. ID following 3. Left knee effusion, pain persists. Ortho consulted 4. 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 Morbid obesity 6. HTN stable
[2019-04-07] MEDS: Morphine 2 MG/ML Syringe IV (14:34)
[2019-04-07] MEDS: oxyCODONE 5 MG Tablet PO ×2 (15:39→21:55)
--- NOTE | 2019-04-07 16:20 | PCM.PN.ORT ---
Subjective: Seen and examined. Denies fevers chills states that tenderness to touch over anterior patella is better however continues to have severe sharp pain anterior to the kneecap with knee range of motion and ambulating. He states he does not feel any pain in the joint or behind the kneecap only in front of the bone of the patella. He states he is familiar with joint injuries from younger years and does not feel there is pain in the joint. - Physical Exam Vitals/I&O's: Vital Signs Temp Pulse Resp BP Pulse Ox 98.2 F 69 16 151/75 H 98 04/07/19 14:41 04/07/19 14:41 04/07/19 14:41 04/07/19 14:41 04/07/19 14:41 Oxygen Delivery Method Room Air Weight: 352 lb 11.834 oz Body Mass Index (BMI) 55.3 Intake and Output for Last 24 Hours 04/05/19 04/06/19 04/07/19 23:59 23:59 23:59 Intake Total 2886.5 / 2886.5 2330 / 2330 1120 / 1120 Output Total 3350 / 3350 3000 / 3475 1800 / 1800 Balance -463.5 / -463.5 -670 / -1145 -680 / -680 General: Alert, Oriented x3, Cooperative, No apparent distress Extremities: - - He is able to ambulate without significant pain with keeping the leg straight Musculoskeletal: - - No erythema about the knee today. Bursal fluid that was aspirated has remained gone. Continues to not have a joint effusion range of motion is limited secondary to anterior pain. Microbiology Past 72 Hours 04/06/19 13:09 Fluid - Bursa Gram Stain - Final 04/06/19 13:09 Fluid - Bursa Body Fluid Culture - Preliminary No growth-Final to follow 04/04/19 10:53 Blood Culture (Wb) - Anticubital Right Blood Culture - Preliminary No growth in 48 hours. 04/04/19 10:28 Blood Culture (Wb) - Left Hand Blood Culture - Preliminary No growth in 48 hours. Laboratory Results 04/07/19 06:25: Sodium 138, Potassium 3.8, Chloride 108 H, Carbon Dioxide 21.0, BUN 37 H, Creatinine 2.38 H, Estim Creat Clear Calc 32.79, Est GFR (MDRD) Af Amer 37 L, Est GFR (MDRD) Non-Af 30 L, BUN/Creatinine Ratio 15.5, Glucose 127 H, Calcium 8.3 L, Phosphorus 4.5, Albumin 1.6 L 04/07/19 06:25: WBC 7.9, RBC 4.43 L, Hgb 12.5 L, Hct 39.0 L, MCV 88.0, MCH 28.2, MCHC 32.1, RDW Std Deviation 43.5, RDW Coeff of Eva 13.4, Plt Count 222, MPV 10.5, Immature Gran % (Auto) 0.900, Neut % (Auto) 65.3, Lymph % (Auto) 20.0, Gooding % (Auto) 9.5, Eos % (Auto) 3.5, Baso % (Auto) 0.8, Absolute Neuts (auto) 5.2, Absolute Lymphs (auto) 1.58, Nucleated RBC % 0 Current Medications Acetaminophen (Tylenol) 650 mg PO Q6H PRN PRN PRN Reason: Pain Score 1-3/Temp > 100.7 F Al Hydroxide/Mg Hydroxide (Mylanta Ii) 30 ml PO Q6H PRN PRN PRN Reason: Gastric Burning Albuterol Sulfate (Ventolin Aerosols) 2.5 mg INHALATION Q2H PRN PRN PRN Reason: Shortness of Breath/Wheezing Amlodipine Besylate (Norvasc) 10 mg PO DAILY [facility] Last Admin: 04/07/19 09:29 Dose: 10 mg Documented by: Aspirin (Aspirin, Baby) 81 mg PO DAILY@0800 [facility] Last Admin: 04/07/19 07:59 Dose: 81 mg Documented by: Atorvastatin Calcium (Lipitor) 40 mg PO QHS [facility] Last Admin: 04/06/19 21:57 Dose: 40 mg Documented by: Bupropion HCl (Wellbutrin Xl) 300 mg PO DAILY [facility] Last Admin: 04/07/19 09:28 Dose: 300 mg Documented by: Carvedilol (Coreg) 25 mg PO BID [facility] Last Admin: 04/07/19 09:29 Dose: 25 mg Documented by: Furosemide (Lasix) 80 mg PO BIDLX [facility] Last Admin: 04/07/19 09:29 Dose: 80 mg Documented by: Glucagon () 1 mg IM .X1 PRN PRN Reason: Hypoglycemia Hydralazine HCl (Apresoline Iv) 10 mg IV Q4H PRN PRN PRN Reason: SBP more than 180 mmHg Hydralazine HCl (Apresoline) 50 mg PO TID [facility] Last Admin: 04/07/19 14:37 Dose: 50 mg Documented by: Sodium Chloride () 250 mls @ 15 mls/hr IV .[id number] PRN PRN Reason: Saline Flush Last Infusion: 04/05/19 12:30 Dose: 0 mls/hr Documented by: Sodium Chloride () 250 mls @ 15 mls/hr IV .[id number] PRN PRN Reason: Additional IVPB Infusion Dextrose (Dextrose 10%-Water) 250 mls @ 999 mls/hr IV .Q16M PRN; Protocol PRN Reason: HYPOGLYCEMIA Cefazolin Sodium 2 gm/ Sodium (Chloride) 110 mls @ 150 mls/hr IV Q8 [facility] Last Infusion: 04/07/19 15:30 Dose: Infused Documented by: Insulin Glargine (Lantus (Bkc)) 80 units SC BID [facility] Last Admin: 04/07/19 09:28 Dose: 80 units Documented by: Insulin Human Lispro (Humalog Kwikpen (Bk)) 0 unit SC ACHS [facility]; Protocol Last Admin: 04/07/19 12:44 Dose: Not Given Documented by: Insulin Human Lispro (Humalog Kwikpen (Bk)) 40 unit SC TIDCM [facility] Last Admin: 04/07/19 12:42 Dose: 10 u Documented by: Morphine Sulfate () 2 mg IV Q3H PRN PRN PRN Reason: Pain Score 6-10/10 Last Admin: 04/07/19 14:34 Dose: 2 mg Documented by: Nitroglycerin (Nitrostat) 0.4 mg SUBLINGUAL Q5M PRN PRN Reason: CARDIAC/CHEST PAIN Ondansetron HCl (Zofran) 4 mg IV Q8H PRN PRN PRN Reason: NAUSEA/VOMITING Oxycodone HCl (Oxyir) 5 mg PO Q4H PRN PRN PRN Reason: Pain Score 4-5/10 Last Admin: 04/07/19 15:39 Dose: 5 mg Documented by: Pantoprazole Sodium (Protonix) 20 mg PO DAILY [facility] Last Admin: 04/07/19 09:28 Dose: 20 mg Documented by: Potassium Chloride (K-Dur) 20 meq PO BIDCM [facility] Last Admin: 04/07/19 07:59 Dose: 20 meq Documented by: Prochlorperazine Edisylate (Compazine Iv) 5 mg IV Q4H PRN PRN PRN Reason: Breakthrough nausea/vomiting Senna/Docusate Sodium (Senokot-S, Coleen-Colace) 2 tablet PO BID PRN PRN PRN Reason: Constipation Sodium Chloride () 10 - 40 ml IV UD PRN PRN Reason: SALINE FLUSH Last Admin: 04/07/19 14:30 Dose: 10 ml Documented by: Medical Necessity - Tobacco Use Smoking Status: Never smoker Assessment/Plan All Active Problems (Last Reviewed 12/06/18 @ 15:57 by Butch Schmitz DO) Cellulitis of left lower extremity without foot (Acute) Cellulitis (Acute) Sepsis (Acute) Orthopnea (Acute) Chest pain (Acute) Acute diastolic (congestive) heart failure (Acute) H/O coronary artery bypass surgery (Resolved ~03/2014) GERD (gastroesophageal reflux disease) (Resolved) Severe sepsis (Resolved) Stain negative bursal fluid culture pending Discussed aspirating the joint proper to assure no septic arthritis. Concern being his lack of range of motion however patient states he does not have joint pain, it is all anterior to the patella only. Discussed risk of aspiration of introducing potential bacteria if there was a septic bursitis present, risk of not aspirating as well. Been what the patient describes we will hold off on any joint aspiration at this point as he is point tender bursae only. We will continue to follow. Continue antibiotic and physical therapy.
[2019-04-07] MEDS: Acetaminophen 325 MG Tablet 650 MG PO (21:55)
[2019-04-07] MEDS: Atorvastatin Calcium 40 MG Tablet PO (21:58)
[2019-04-08] VITALS (8 sets, daily range): BP systolic 123–160; BP diastolic 65–76; PULSE 64–72; RESP 16–18; TEMP 36.4–36.7; O2SAT 95–99
[2019-04-08 04:59] LABS: Absolute Lymphocyte Count 1.91 X10^3/uL (0.83-4.51); Absolute Neutrophil Count 4.9 X10^3/uL (2.0-7.7); Basophil# 0.05 X10^3/uL; Basophil% 0.6 % (0-1); Eosinophil# 0.28 X10^3/uL; Eosinophils% 3.5 % (0-5); Hematocrit 39.4 % (40-54); Hemoglobin 12.6 g/dL (13.0-16.5); Lymphocyte # 1.91 X10^3/ul (4.0); Lymphocyte % 24.2 % (19-41); Mean Corpuscular Hgb 28.1 pg (27.0-32.0); Mean Corpuscular Volume 87.8 fL (80-94); Mean Platelet Vol. 10.2 fl (6.2-12.0); Monocyte% 8.9 % (0-10); NRBC Flagged by Analyzer 0 % (0-5); Neutrophil # 4.87 X10^3/uL (2.7-7.7); Neutrophil % 61.7 % (47-70); Platelet Count 230 K/mm3 (150-450); RBC Distribution Width CV 13.4 % (11.6-14.6); Red Blood Count 4.49 M/mm3 (4.6-6.2); White Blood Count 7.9 K/mm3 (4.4-11.0)
[2019-04-08 05:17] LABS: Albumin, Serum 1.5 g/dL (3.2-5.0); BUN 35 mg/dL (7-18); Calcium,Total 8.4 mg/dL (8.5-10.1); Chloride 110 mmol/L (98-107); Creatinine, Serum 2.33 mg/dL (0.70-1.30); EST Glomerular Filtration Rate 31 mL/min (>60); Est Glom Filt Rate - Afr Amer 38 mL/min (>60); Estimated Creatinine Clearance 33.49 ml/min; Glucose 94 mg/dL (74-106); Phosphorus 4.7 mg/dL (2.5-4.9); Potassium 3.8 mmol/L (3.5-5.1); Sodium Level 140 mmol/L (136-145)
[2019-04-08] MEDS: hydrALAZINE 50 MG Tablet PO ×3 (05:20→21:47)
[2019-04-08] MEDS: Cefazolin 2 GM in 0.9% Normal Saline 100 ML IV ×3 (05:21→21:47)
[2019-04-08] MEDS: Aspirin 81 MG TAB.CHEW PO (07:55)
[2019-04-08] MEDS: amLODIPine 5 MG Tablet 10 MG PO (07:55)
[2019-04-08] MEDS: buPROPion (XL) 300 MG TABLET.XL PO (07:55)
[2019-04-08] MEDS: Carvedilol 25 MG Tablet PO ×2 (07:56→21:43)
[2019-04-08] MEDS: Furosemide 80 MG Tablet PO ×2 (07:56→16:46)
[2019-04-08] MEDS: Pantoprazole Sodium 20 MG Tablet PO (07:56)
[2019-04-08] MEDS: oxyCODONE 5 MG Tablet PO ×3 (08:00→21:47)
[2019-04-08] MEDS: Acetaminophen 325 MG Tablet 650 MG PO (08:00)
--- NOTE | 2019-04-08 09:42 | PN_ITS ---
Subjective: Day #5 antibiotics-Ancef The patient is a 53-year-old male with a past medical history of CAD, CABG, hyperlipidemia, chronic diastolic congestive heart failure, chronic renal failure stage IV, diabetes mellitus type 2, hypertension and super obesity who was admitted to [facility] on 04/04/2019 for sepsis secondary to cellulitis of the LLE. He has a hx of MRSA infection in the past. He was given Vanco and Zosyn in the ED. He was started on Rocephin and Vanco at admission. Dr. Tao from infectious disease was consulted and felt strongly that the cellulitis was more likely than not due to Streptococcus. Vancomycin was discontinued and he was started on Ancef 2 g IV every 12 hours based on his diminished GFR. He continued to complain of severe left knee pain and Dr. Laws was consulted and felt he possibly had early prepatellar septic bursitis versus aseptic bursitis/gout. He performed an aspiration from the prepatellar bursa and the fluid was sent to the lab. All events of the past 24 hours of been reviewed. Afebrile since admission Vital signs are stable. Mild systolic hypertension for the past 3 days. He is maintaining an appropriate oxygen saturation on room air. All lab was personally reviewed. He white blood cell count is 7.9 today with an unremarkable differential. Hemoglobin is stable at 12.6 and platelets are within normal limits. The BMP is remarkable for a creatinine of 2.33, down from 2.78 at admission. Albumin is very low at 1.5. Blood cultures drawn at admission had no growth. Fluid aspirated from the prepatellar bursa had 4+ white blood cells with no organisms seen. I reviewed the CBC from the aspirated fluid and there were 27,740 white blood cells with 91% neutrophils. There were a total of 8,000 red blood cells. I can not find the crystal analysis in the EMR. Continues to complain of localized pain over the left suprapatellar bursa. Denies any hx of gout or any FH of gout...has never had a UA at [facility]. The patient is checking his own sugars and then telling the nurse how much insulin he would take at home.......the blood sugars are not being recorded on the EMR. - Physical Exam Vitals/I&O's: Vital Signs Temp Pulse Resp BP Pulse Ox 97.6 F L 69 18 160/65 H 98 04/08/19 07:53 04/08/19 07:53 04/08/19 07:53 04/08/19 07:53 04/08/19 07:53 Oxygen Delivery Method Room Air Weight: 347 lb 0.121 oz Body Mass Index (BMI) 55.3 Intake and Output for Last 24 Hours 04/06/19 04/07/19 04/08/19 23:59 23:59 23:59 Intake Total 2330 / 2330 1830 / 2330 1710 / 1710 Output Total 3000 / 3475 2550 / 2550 2200 / 2200 Balance -670 / -1145 -720 / -220 -490 / -490 General: Alert, Oriented x3, Cooperative, - - lying in bed HEENT: Atraumatic, PERRLA Oral: Dry Mucosa Lungs: Clear to auscultation - anterior and lateral Cardiovascular: Regular rate, Regular Rhythm, Normal S1, Normal S2, No murmurs, No Gallop Abdomen: Bowel Sounds Present, Soft, Non Tender, Non-Distended, Obese, - - No guarding with palpation Extremities: Edema - of the LLE....pt states that it is improving and he also tells me that he moisturizes his legs daily and always wears a compression stocking. Skin: No breakdown, - - the erythema of the LLE is well within the marked border. The area over the patella is warm to touch and very painful to even light palpation. Microbiology Past 72 Hours 04/06/19 13:09 Fluid - Bursa Gram Stain - Final 04/06/19 13:09 Fluid - Bursa Body Fluid Culture - Preliminary No growth-Final to follow 04/04/19 10:53 Blood Culture (Wb) - Anticubital Right Blood Culture - Preliminary No growth in 48 hours. 04/04/19 10:28 Blood Culture (Wb) - Left Hand Blood Culture - Preliminary No growth in 48 hours. Laboratory Results 04/08/19 04:10: Sodium 140, Potassium 3.8, Chloride 110 H, Carbon Dioxide 21.0, BUN 35 H, Creatinine 2.33 H, Estim Creat Clear Calc 33.49, Est GFR (MDRD) Af Amer 38 L, Est GFR (MDRD) Non-Af 31 L, BUN/Creatinine Ratio 15.0, Glucose 94, Calcium 8.4 L, Phosphorus 4.7, Albumin 1.5 L 04/08/19 04:10: WBC 7.9, RBC 4.49 L, Hgb 12.6 L, Hct 39.4 L, MCV 87.8, MCH 28.1, MCHC 32.0, RDW Std Deviation 43.0, RDW Coeff of Eva 13.4, Plt Count 230, MPV 10.2, Immature Gran % (Auto) 1.100 H, Neut % (Auto) 61.7, Lymph % (Auto) 24.2, [place]alier % (Auto) 8.9, Eos % (Auto) 3.5, Baso % (Auto) 0.6, Absolute Neuts (auto) 4.9, Absolute Lymphs (auto) 1.91, Nucleated RBC % 0 Current Medications Acetaminophen (Tylenol) 650 mg PO Q6H PRN PRN PRN Reason: Pain Score 1-3/Temp > 100.7 F Last Admin: 04/08/19 08:00 Dose: 650 mg Documented by: Al Hydroxide/Mg Hydroxide (Mylanta Ii) 30 ml PO Q6H PRN PRN PRN Reason: Gastric Burning Albuterol Sulfate (Ventolin Aerosols) 2.5 mg INHALATION Q2H PRN PRN PRN Reason: Shortness of Breath/Wheezing Amlodipine Besylate (Norvasc) 10 mg PO DAILY [facility] Last Admin: 04/08/19 07:55 Dose: 10 mg Documented by: Aspirin (Aspirin, Baby) 81 mg PO DAILY@0800 [facility] Last Admin: 04/08/19 07:55 Dose: 81 mg Documented by: Atorvastatin Calcium (Lipitor) 40 mg PO QHS [facility] Last Admin: 04/07/19 21:58 Dose: 40 mg Documented by: Bupropion HCl (Wellbutrin Xl) 300 mg PO DAILY [facility] Last Admin: 04/08/19 07:55 Dose: 300 mg Documented by: Carvedilol (Coreg) 25 mg PO BID [facility] Last Admin: 04/08/19 07:56 Dose: 25 mg Documented by: Furosemide (Lasix) 80 mg PO BIDLX [facility] Last Admin: 04/08/19 07:56 Dose: 80 mg Documented by: Glucagon () 1 mg IM .X1 PRN PRN Reason: Hypoglycemia Hydralazine HCl (Apresoline Iv) 10 mg IV Q4H PRN PRN PRN Reason: SBP more than 180 mmHg Hydralazine HCl (Apresoline) 50 mg PO TID [facility] Last Admin: 04/08/19 05:20 Dose: 50 mg Documented by: Sodium Chloride () 250 mls @ 15 mls/hr IV .[id number] PRN PRN Reason: Saline Flush Last Infusion: 04/05/19 12:30 Dose: 0 mls/hr Documented by: Sodium Chloride () 250 mls @ 15 mls/hr IV .[id number] PRN PRN Reason: Additional IVPB Infusion Dextrose (Dextrose 10%-Water) 250 mls @ 999 mls/hr IV .Q16M PRN; Protocol PRN Reason: HYPOGLYCEMIA Cefazolin Sodium 2 gm/ Sodium (Chloride) 110 mls @ 150 mls/hr IV Q8 [facility] Last Infusion: 04/08/19 06:08 Dose: Infused Documented by: Insulin Glargine (Lantus (Bkc)) 80 units SC BID [facility] Last Admin: 04/07/19 21:59 Dose: 60 units Documented by: Insulin Human Lispro (Humalog Kwikpen (Bkc)) 0 unit SC ACHS [facility]; Protocol Last Admin: 04/08/19 06:16 Dose: Not Given Documented by: Insulin Human Lispro (Humalog Kwikpen (Bk)) 40 unit SC TIDCM [facility] Last Admin: 04/08/19 07:55 Dose: Not Given Documented by: Morphine Sulfate () 2 mg IV Q3H PRN PRN PRN Reason: Pain Score 6-10/10 Last Admin: 04/07/19 14:34 Dose: 2 mg Documented by: Nitroglycerin (Nitrostat) 0.4 mg SUBLINGUAL Q5M PRN PRN Reason: CARDIAC/CHEST PAIN Ondansetron HCl (Zofran) 4 mg IV Q8H PRN PRN PRN Reason: NAUSEA/VOMITING Oxycodone HCl (Oxyir) 5 mg PO Q4H PRN PRN PRN Reason: Pain Score 4-5/10 Last Admin: 04/08/19 08:00 Dose: 5 mg Documented by: Pantoprazole Sodium (Protonix) 20 mg PO DAILY [facility] Last Admin: 04/08/19 07:56 Dose: 20 mg Documented by: Potassium Chloride (K-Dur) 20 meq PO BIDCM [facility] Last Admin: 04/08/19 07:55 Dose: 20 meq Documented by: Prochlorperazine Edisylate (Compazine Iv) 5 mg IV Q4H PRN PRN PRN Reason: Breakthrough nausea/vomiting Senna/Docusate Sodium (Senokot-S, Coleen-Colace) 2 tablet PO BID PRN PRN PRN Reason: Constipation Sodium Chloride () 10 - 40 ml IV UD PRN PRN Reason: SALINE FLUSH Last Admin: 04/07/19 14:30 Dose: 10 ml Documented by: Medical Necessity - Tobacco Use Smoking Status: Never smoker Assessment/Plan All Active Problems (Last Reviewed 12/06/18 @ 15:57 by Butch Schmitz DO) Cellulitis of left lower extremity without foot (Acute) Cellulitis (Acute) Sepsis (Acute) Orthopnea (Acute) Chest pain (Acute) Acute diastolic (congestive) heart failure (Acute) H/O coronary artery bypass surgery (Resolved ~03/2014) GERD (gastroesophageal reflux disease) (Resolved) Severe sepsis (Resolved) Impressions 1. sepsis due to cellulitis of the LLE - continue the Ancef. ID is following. Culture on the aspirated fluid from the bursa is pending. Crystal report is pending? not in EMR. Will check a uric acid today. 2. presumed septic prepatellar bursitis on the left. Being followed by Dr. Laws 3. I reviewed the blood sugars from today on the patients meter and they are in good control. I ordered a HGBA1C. 4. HTN - systolic is mildly elevated, may be due to pain. No need to treat at this time, continue current antihypertensive regimen 5. pain due to infection in the L knee. Try zostrix since we can not use a NSAID due to stage 4 CRF. Continue OXY IR but, increase the dose to 5-10 mg Q 4H PRN. He will ambulate in the halls today continue Eliquis for DVT prophylaxis - venous doppler of the LLE was negative for DVT Code Visit Inpatient E&M: 23990 Subs Hosp L2
--- NOTE | 2019-04-08 10:18 | NURSING ---
Blood Sugar results Apr 08 0838- 158 0741- 159 0717- 156 0619- 86 0554- 92 0410 117 0319 69 Apr 078- 129 2037- 130 1757- 179 1641- 140 1611- 108 1546- 92 1530- 105 1516-92 1441- 92 5211 835 4683- 126 1104- 128 1042- 136 0845- 184 0821- 177 0601- 100 0510- 110 0307- 75 Apr 061- 136 2021- 131 1842- 166 1752- 167 0032 450 1496- 120 1604- 95 1533- 89 1519- 76 1500- 73 1440- 94 1226- 169 1040- 219 0839- 203 0654 101 0630- 103 0543- 103 0410- 107 Apr 05 2200- 142 2000- 108 1550- 113 1118- 199 0757- 128 0338- 138 Apr 048- 117 1454- 190 1132- 176 0720- 164
--- NOTE | 2019-04-08 10:44 | NURSING ---
blood sugar 150- 80 units lantus given
[2019-04-08 11:05] LABS: Uric Acid 7.2 mg/dL (3.5-7.2)
[2019-04-08 11:06] LABS: Hemoglobin A1c 7.9 % (4.2-6.3)
--- NOTE | 2019-04-08 12:05 | NURSING ---
Blood sugar 152- pt states he will take 10 units
--- NOTE | 2019-04-08 12:49 | NURSING ---
pt states bs now 137 and no longer wants to take 10 units of novolog. refusing novolog for lunch
[2019-04-08] MEDS: 0.9% Saline Lock 10 ML Syringe IV ×2 (14:08→21:48)
--- NOTE | 2019-04-08 16:44 | NURSING ---
blood sugar 95, pt refused dinner novolog
--- NOTE | 2019-04-08 21:40 | NURSING ---
Pt blood sugar per his machine is 100
[2019-04-08] MEDS: Atorvastatin Calcium 40 MG Tablet PO (21:43)
[2019-04-09] VITALS (7 sets, daily range): BP systolic 143–156; BP diastolic 69–84; PULSE 65–68; RESP 16–18; TEMP 36.2–37; O2SAT 95–96
[2019-04-09] MEDS: oxyCODONE 5 MG Tablet PO ×3 (02:29→15:47)
[2019-04-09 05:44] LABS: Albumin, Serum 1.5 g/dL (3.2-5.0); BUN 33 mg/dL (7-18); BUN/Creat Ratio 14.6 RATIO (10-20); Calcium,Total 8.3 mg/dL (8.5-10.1); Chloride 109 mmol/L (98-107); Creatinine, Serum 2.26 mg/dL (0.70-1.30); EST Glomerular Filtration Rate 32 mL/min (>60); Est Glom Filt Rate - Afr Amer 39 mL/min (>60); Estimated Creatinine Clearance 34.53 ml/min; Glucose 88 mg/dL (74-106); Phosphorus 4.4 mg/dL (2.5-4.9); Potassium 3.8 mmol/L (3.5-5.1); Sodium Level 138 mmol/L (136-145)
[2019-04-09] MEDS: 0.9% Saline Lock 10 ML Syringe IV (06:19)
[2019-04-09] MEDS: hydrALAZINE 50 MG Tablet PO ×2 (06:19→14:12)
[2019-04-09] MEDS: Cefazolin 2 GM in 0.9% Normal Saline 100 ML IV ×2 (06:19→14:11)
--- NOTE | 2019-04-09 07:02 | PN.ORTHO_ITS ---
Subjective: doing better. Pain has isolated to a focal point of the superior patella. He is able to bend his knee to 90 degrees at the edge of the bed out significant pain except for initial movement causes pain anterior to the patella only. Denies joint pain fevers chills - Physical Exam Vitals/I&O's: Vital Signs Temp Pulse Resp BP Pulse Ox 97.7 F L 65 16 156/84 H 95 04/09/19 06:15 04/09/19 06:19 04/09/19 06:15 04/09/19 06:19 04/09/19 06:15 Oxygen Delivery Method Room Air Weight: 346 lb 5.539 oz Body Mass Index (BMI) 55.3 Intake and Output for Last 24 Hours 04/07/19 04/08/19 04/09/19 23:59 23:59 23:59 Intake Total 1830 / 2330 3470 / 3470 1160 / 1160 Output Total 2550 / 2550 4100 / 4100 900 / 900 Balance -720 / -220 -630 / -630 260 / 260 General: Alert, Oriented x3, Cooperative, No apparent distress Extremities: - - Left lower extremity sialitis improving chronic lymphedema present. No bursal swelling recurrence no joint effusion knee. No erythema about the knee. tender to palpation superior pole patella only. Patient is able to ambulate sit on toilet bowl with knee bent 90 degrees and bend knee 90 degrees at edge of bed. Microbiology Past 72 Hours 04/06/19 13:09 Fluid - Bursa Gram Stain - Final 04/06/19 13:09 Fluid - Bursa Body Fluid Culture - Preliminary No growth-Final to follow 04/04/19 10:53 Blood Culture (Wb) - Anticubital Right Blood Culture - Prelim inary No growth in 48 hours. 04/04/19 10:28 Blood Culture (Wb) - Left Hand Blood Culture - Preliminary No growth in 48 hours. Laboratory Results 04/08/19 04:10: Uric Acid 7.2 04/08/19 04:10: Hemoglobin A1c 7.9 H 04/09/19 04:45: Sodium 138, Potassium 3.8, Chloride 109 H, Carbon Dioxide 22.0, BUN 33 H, Creatinine 2.26 H, Estim Creat Clear Calc 34.53, Est GFR (MDRD) Af Amer 39 L, Est GFR (MDRD) Non-Af 32 L, BUN/Creatinine Ratio 14.6, Glucose 88, Calcium 8.3 L, Phosphorus 4.4, Albumin 1.5 L Current Medications Acetaminophen (Tylenol) 650 mg PO Q6H PRN PRN PRN Reason: Pain Score 1-3/Temp > 100.7 F Last Admin: 04/08/19 08:00 Dose: 650 mg Documented by: Al Hydroxide/Mg Hydroxide (Mylanta Ii) 30 ml PO Q6H PRN PRN PRN Reason: Gastric Burning Albuterol Sulfate (Ventolin Aerosols) 2.5 mg INHALATION Q2H PRN PRN PRN Reason: Shortness of Breath/Wheezing Amlodipine Besylate (Norvasc) 10 mg PO DAILY [facility] Last Admin: 04/08/19 07:55 Dose: 10 mg Documented by: Aspirin (Aspirin, Baby) 81 mg PO DAILY@0800 [facility] Last Admin: 04/08/19 07:55 Dose: 81 mg Documented by: Atorvastatin Calcium (Lipitor) 40 mg PO QHS [facility] Last Admin: 04/08/19 21:43 Dose: 40 mg Documented by: Bupropion HCl (Wellbutrin Xl) 300 mg PO DAILY [facility] Last Admin: 04/08/19 07:55 Dose: 300 mg Documented by: Carvedilol (Coreg) 25 mg PO BID [facility] Last Admin: 04/08/19 21:43 Dose: 25 mg Documented by: Furosemide (Lasix) 80 mg PO BIDLX [facility] Last Admin: 04/08/19 16:46 Dose: 80 mg Documented by: Glucagon () 1 mg IM .X1 PRN PRN Reason: Hypoglycemia Hydralazine HCl (Apresoline Iv) 10 mg IV Q4H PRN PRN PRN Reason: SBP more than 180 mmHg Hydralazine HCl (Apresoline) 50 mg PO TID [facility] Last Admin: 04/09/19 06:19 Dose: 50 mg Documented by: Sodium Chloride () 250 mls @ 15 mls/hr IV .[id number] PRN PRN Reason: Saline Flush Last Infusion: 04/05/19 12:30 Dose: 0 mls/hr Documented by: Sodium Chloride () 250 mls @ 15 mls/hr IV .[id number] PRN PRN Reason: Additional IVPB Infusion Dextrose (Dextrose 10%-Water) 250 mls @ 999 mls/hr IV .Q16M PRN; Protocol PRN Reason: HYPOGLYCEMIA Cefazolin Sodium 2 gm/ Sodium (Chloride) 110 mls @ 150 mls/hr IV Q8 [facility] Last Admin: 04/09/19 06:19 Dose: 150 mls/hr Documented by: Insulin Glargine (Lantus (Bkc)) 80 units SC BID [facility] Last Admin: 04/08/19 21:42 Dose: Not Given Documented by: Insulin Human Lispro (Humalog Kwikpen (Bkc)) 0 unit SC ACHS [facility]; Protocol Last Admin: 04/08/19 21:41 Dose: Not Given Documented by: Insulin Human Lispro (Humalog Kwikpen (Bkc)) 40 unit SC TIDCM [facility] Last Admin: 04/08/19 16:45 Dose: Not Given Documented by: Morphine Sulfate () 2 mg IV Q3H PRN PRN PRN Reason: Pain Score 6-10/10 Last Admin: 04/07/19 14:34 Dose: 2 mg Documented by: Nitroglycerin (Nitrostat) 0.4 mg SUBLINGUAL Q5M PRN PRN Reason: CARDIAC/CHEST PAIN Ondansetron HCl (Zofran) 4 mg IV Q8H PRN PRN PRN Reason: NAUSEA/VOMITING Oxycodone HCl (Oxyir) 5 - 10 mg PO Q4H PRN PRN PRN Reason: Pain Score 4-5/10 Last Admin: 04/09/19 02:29 Dose: 10 mg Documented by: Pantoprazole Sodium (Protonix) 20 mg PO DAILY [facility] Last Admin: 04/08/19 07:56 Dose: 20 mg Documented by: [facility] Last Admin: 04/08/19 16:46 Dose: 20 meq Documented by: Prochlorperazine Edisylate (Compazine Iv) 5 mg IV Q4H PRN PRN PRN Reason: Breakthrough nausea/vomiting Senna/Docusate Sodium (Senokot-S, Coleen-Colace) 2 tablet PO BID PRN PRN PRN Reason: Constipation Sodium Chloride () 10 - 40 ml IV UD PRN PRN Reason: SALINE FLUSH Last Admin: 04/09/19 06:19 Dose: 20 ml Documented by: Medical Necessity - Tobacco Use Smoking Status: Never smoker Assessment/Plan All Active Problems (Last Reviewed 12/06/18 @ 15:57 by Butch Schmitz DO) Cellulitis of left lower extremity without foot (Acute) Cellulitis (Acute) Sepsis (Acute) Orthopnea (Acute) Chest pain (Acute) Acute diastolic (congestive) heart failure (Acute) H/O coronary artery bypass surgery (Resolved ~03/2014) GERD (gastroesophageal reflux disease) (Resolved) Severe sepsis (Resolved) Cellulitis improving, cultures of bursal fluid no growth without recurrence of bursal fluid accumulation. no joint effusion or erythema. ROM improving. Recommend continued antibiotics and range of motion with monitoring. If any recurrence of bursitis please contact.
--- NOTE | 2019-04-09 07:40 | NURSING ---
Blood sugar per Pt machine was 118.
[2019-04-09] MEDS: Aspirin 81 MG TAB.CHEW PO (08:23)
[2019-04-09] MEDS: Carvedilol 25 MG Tablet PO (08:24)
[2019-04-09] MEDS: Pantoprazole Sodium 20 MG Tablet PO (08:25)
[2019-04-09] MEDS: Furosemide 80 MG Tablet PO (08:25)
[2019-04-09] MEDS: amLODIPine 5 MG Tablet 10 MG PO (08:25)
[2019-04-09] MEDS: buPROPion (XL) 300 MG TABLET.XL PO (08:26)
--- NOTE | 2019-04-09 08:29 | NURSING ---
Pt's blood sugar @ this time 111 per his machine.
[2019-04-09] MEDS: Acetaminophen 325 MG Tablet 650 MG PO (08:31)
--- NOTE | 2019-04-09 11:40 | PN.RENAL_ITS ---
- Physical Exam Vitals/I&O's: Vital Signs Temp Pulse Resp BP Pulse Ox 97.8 F 67 18 144/69 H 96 04/09/19 08:12 04/09/19 08:12 04/09/19 08:12 04/09/19 08:12 04/09/19 08:12 Oxygen Delivery Method Room Air Weight: 157.1 kg Body Mass Index (BMI) 55.3 Intake and Output for Last 24 Hours 04/07/19 04/08/19 04/09/19 23:59 23:59 23:59 Intake Total 1830 / 2330 3470 / 3470 1270 / 1270 Output Total 2550 / 2550 4100 / 4100 900 / 900 Balance -720 / -220 -630 / -630 370 / 370 General: Alert, Oriented x3, Cooperative Lungs: Clear to auscultation Cardiovascular: Regular rate Abdomen: Bowel Sounds Present, Soft, Non Tender, Obese Extremities: No edema Skin: - - Cellulitis left lower extremity improved Musculoskeletal: - Psych/Mental Status: Alert and oriented to time, place, person, mood and affect Microbiology Past 72 Hours 04/04/19 10:53 Blood Culture (Wb) - Anticubital Right Blood Culture - Final No growth in 5 days. 04/04/19 10:28 Blood Culture (Wb) - Left Hand Blood Culture - Final No growth in 5 days. 04/06/19 13:09 Fluid - Bursa Gram Stain - Final 04/06/19 13:09 Fluid - Bursa Body Fluid Culture - Final No growth aerobically. 04/06/19 13:09 Fluid - Bursa Anaerobic Culture - Preliminary No growth in 48 hours. Laboratory Results 04/09/19 04:45: Sodium 138, Potassium 3.8, Chloride 109 H, Carbon Dioxide 22.0, BUN 33 H, Creatinine 2.26 H, Estim Creat Clear Calc 34.53, Est GFR (MDRD) Af Amer 39 L, Est GFR (MDRD) Non-Af 32 L, BUN/Creatinine Ratio 14.6, Glucose 88, Calcium 8.3 L, Phosphorus 4.4, Albumin 1.5 L Current Medications Acetaminophen (Tylenol) 650 mg PO Q6H PRN PRN PRN Reason: Pain Score 1-3/Temp > 100.7 F Last Admin: 04/09/19 08:31 Dose: 650 mg Documented by: Al Hydroxide/Mg Hydroxide (Mylanta Ii) 30 ml PO Q6H PRN PRN PRN Reason: Gastric Burning Albuterol Sulfate (Ventolin Aerosols) 2.5 mg INHALATION Q2H PRN PRN PRN Reason: Shortness of Breath/Wheezing Amlodipine Besylate (Norvasc) 10 mg PO DAILY [facility] Last Admin: 04/09/19 08:25 Dose: 10 mg Documented by: Aspirin (Aspirin, Baby) 81 mg PO DAILY@0800 [facility] Last Admin: 04/09/19 08:23 Dose: 81 mg Documented by: Atorvastatin Calcium (Lipitor) 40 mg PO QHS [facility] Last Admin: 04/08/19 21:43 Dose: 40 mg Documented by: Bupropion HCl (Wellbutrin Xl) 300 mg PO DAILY [facility] Last Admin: 04/09/19 08:26 Dose: 300 mg Documented by: Carvedilol (Coreg) 25 mg PO BID [facility] Last Admin: 04/09/19 08:24 Dose: 25 mg Documented by: Furosemide (Lasix) 80 mg PO BIDLX [facility] Last Admin: 04/09/19 08:25 Dose: 80 mg Documented by: Glucagon () 1 mg IM .X1 PRN PRN Reason: Hypoglycemia Hydralazine HCl (Apresoline Iv) 10 mg IV Q4H PRN PRN PRN Reason: SBP more than 180 mmHg Hydralazine HCl (Apresoline) 50 mg PO TID [facility] Last Admin: 04/09/19 06:19 Dose: 50 mg Documented by: Sodium Chloride () 250 mls @ 15 mls/hr IV .[id number] PRN PRN Reason: Saline Flush Last Infusion: 04/05/19 12:30 Dose: 0 mls/hr Documented by: Sodium Chloride () 250 mls @ 15 mls/hr IV .[id number] PRN PRN Reason: Additional IVPB Infusion Dextrose (Dextrose 10%-Water) 250 mls @ 999 mls/hr IV .Q16M PRN; Protocol PRN Reason: HYPOGLYCEMIA Cefazolin Sodium 2 gm/ Sodium (Chloride) 110 mls @ 150 mls/hr IV Q8 [facility] Last Infusion: 04/09/19 07:03 Dose: Infused Documented by: Insulin Glargine (Lantus (Bkc)) 80 units SC BID [facility] Last Admin: 04/09/19 08:25 Dose: Not Given Documented by: Insulin Human Lispro (Humalog Kwikpen (Bkc)) 0 unit SC ACHS [facility]; Protocol Last Admin: 04/09/19 07:40 Dose: Not Given Documented by: Insulin Human Lispro (Humalog Kwikpen (Bkc)) 40 unit SC TIDCM [facility] Last Admin: 04/09/19 08:23 Dose: Not Given Documented by: Morphine Sulfate () 2 mg IV Q3H PRN PRN PRN Reason: Pain Score 6-10/10 Last Admin: 04/07/19 14:34 Dose: 2 mg Documented by: Nitroglycerin (Nitrostat) 0.4 mg SUBLINGUAL Q5M PRN PRN Reason: CARDIAC/CHEST PAIN Ondansetron HCl (Zofran) 4 mg IV Q8H PRN PRN PRN Reason: NAUSEA/VOMITING Oxycodone HCl (Oxyir) 5 - 10 mg PO Q4H PRN PRN PRN Reason: Pain Score 4-5/10 Last Admin: 04/09/19 02:29 Dose: 10 mg Documented by: Pantoprazole Sodium (Protonix) 20 mg PO DAILY [facility] Last Admin: 04/09/19 08:25 Dose: 20 mg Documented by: [facility] Last Admin: 04/09/19 08:24 Dose: 20 meq Documented by: Prochlorperazine Edisylate (Compazine Iv) 5 mg IV Q4H PRN PRN PRN Reason: Breakthrough nausea/vomiting Senna/Docusate Sodium (Senokot-S, Coleen-Colace) 2 tablet PO BID PRN PRN PRN Reason: Constipation Sodium Chloride () 10 - 40 ml IV UD PRN PRN Reason: SALINE FLUSH Last Admin: 04/09/19 06:19 Dose: 20 ml Documented by: Medical Necessity - Tobacco Use Smoking Status: Never smoker Assessment/Plan All Active Problems (Last Reviewed 12/06/18 @ 15:57 by Butch Schmitz DO) Cellulitis of left lower extremity without foot (Acute) Cellulitis (Acute) Sepsis (Acute) Orthopnea (Acute) Chest pain (Acute) Acute diastolic (congestive) heart failure (Acute) H/O coronary artery bypass surgery (Resolved ~03/2014) GERD (gastroesophageal reflux disease) (Resolved) Severe sepsis (Resolved) 1. Acute on CKD stage 3 due to acute cellulitis. Creatinine continues to improve down to 2.26 off losartan. Follow-up with me in the office May 10 at 10 AM 2. Acute cellulitis LLE continue oral antibiotics with Keflex 500 mg twice a day for next few days 3. Left knee effusion, pain improved 4. 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 Morbid obesity 6. HTN stable
--- NOTE | 2019-04-09 12:18 | NURSING ---
LATE ENTRY - PT'S BLOOD SUGAR 170 PER HIS MACHINE
[2019-04-09 12:45] LABS: Pathologist Review Reviewed
--- NOTE | 2019-04-09 14:26 | DCINST_ITS ---
You will use the following diet at home:: Calorie/Carbohydrate Controlled (specify 1200, 1400, etc) - 1800 calories Your food should be the consistency of: Regular Your liquids should be the consistency of: Regular/Thin Discharge Activity: Return to Normal Activity Call your doctor if you observe: Fever of 101 or Higher, Shortness of breath, Dizziness, Fainting spells, Swelling in the ankles, Chest pain, Increased palpitations (irregular heartbeat) Additional Instructions: BMP in 3-5 days by PCP to monitor kidney function Allergies/Adverse Reactions: Allergies pravastatin sodium [From Pravachol] Adverse Reaction (Intermediate, Verified 04/04/19 09:57) muscle aches ACHY MUSCLES Medications to take at Discharge Aspirin [Aspirin, Baby] 81 mg PO DAILY@0800 10/16/15 Atorvastatin Calcium [Lipitor] 40 mg PO QHS 10/16/15 Carvedilol [Coreg (Beta Kody)] 25 mg PO BID 08/29/17 Omeprazole [Prilosec] 20 mg PO DAILY 08/29/17 amlodipine 5 mg tablet 10 mg PO QDAY tab 02/07/18 Bupropion HCl [Bupropion Xl] 300 mg PO DAILY 12/06/18 Furosemide [Lasix] 80 mg PO BID 12/06/18 Potassium Chloride [K-Dur] 20 meq PO BID 12/06/18 Insulin Glargine [Lantus SoloStar Pen] 80 units SUBCUT BID 04/04/19 Insulin Lispro [Humalog KwikPen] 30 - 50 unit SQ TIDCM 04/04/19 Cephalexin [Keflex] 500 mg PO Q8 #15 cap 04/09/19 The following prescriptions were given: Cephalexin [Keflex] 500 mg PO Q8 #15 cap Transmission Status: Pending to [facility] Primary Care Physician: Betty Farrell MD [Primary Care Provider] - Please follow up with your Primary Care Physician in: 3-5 days Test Results: Test results from this visit will be discussed in further detail at your follow- up appointment, if applicable. Please Follow Up With: Catherine Raymundo DO When: 05/10/2019 10 am Please Follow Up With: Tamir Lackey MD When: 3-4 weeks
--- NOTE | 2019-04-09 14:28 | PCM.DC.SUM ---
Discharge Date and Diagnosis Date of Admission: 04/04/19 Date of Discharge: 04/09/19 - Secondary Discharge Diagnosis Chronic Problems (Last Reviewed 12/06/18 @ 15:57 by Butch Schmitz DO) Chronic diastolic (congestive) heart failure (Chronic) Pure hypercholesterolemia (Chronic) Essential (primary) hypertension (Chronic) Dyspnea (Chronic) Left ventricular hypertrophy (Chronic) Secondary pulmonary arterial hypertension (Chronic) Atherosclerosis of coronary artery bypass graft without angina pectoris (Chronic) S/P CABG in 03/2014 with LOGAN to distal LAD, reverse SVG to first diagonal and second diagonal, obtuse marginal, and posterior descending artery; Lymphedema of left leg (Chronic) Morbid obesity (Chronic) Diabetes mellitus out of control (Chronic) Hospital Course and Treatment Imaging Results: Venous Doppler: Interpretation Summary No evidence for acute deep venous thrombosis bilateral lower extremities Patent and compressible right great saphenous vein Surgically harvested left great saphenous vein Examination of fair technical quality secondary to body habitus and swelling with limitations as noted. Left Knee XR: IMPRESSION: Mild arthrosis of the medial femorotibial compartment. Soft tissue swelling. Consults: Nephrology ID Ortho Operations: None Procedures: - - Knee drainage Summary of Care Provided: Per HPI: The patient is a 53 year old M with history of recurrent flatness of left lower leg with lymphedema after he had vein harvest from left leg for coronary artery bypass in 2013 came to ER with left leg swelling, redness, fever and chills for 2 to 3 days. This started with redness in the left leg, with lymphangitic streak up inside of his left thigh. At home his temperature was 101, nausea, vomiting and generalized malaise. The patient has history of MRSA infection. The patient was last admitted between 12/06 to 12/10 for severe sepsis secondary to cellulitis of left lower extremity and TALITA on CKD stage III/IV In ED, temperature 97.8 Fahrenheit, no tachycardia. Blood pressure stable 149/71 with no tachypnea or hypoxia. Leukocytosis 16.5 thousand with left shift. Sodium 132, BUN/creatinine 33/2.78. Glucose 203. Lactic acid 1.7. Patient got 1 dose of vancomycin and Zosyn in ER and admitted. Hospital Course: 1. Sepsis secondary to cellulitis/left knee [id number] male presenting with recurrent left lower extremity cellulitis and left knee pain. Orthopedic surgery was consulted where they did a sample and felt that he just had bursitis as his synovial fluid did not grow any bacteria. Infectious disease was consulted and felt that he could be treated with Ancef with transition to Keflex p.o. as an outpatient. They also recommended follow-up with them in the office for his recurrent cellulitis. As his hospitalization progressed, his knee was feeling a little bit better each day and he was able to bend it and actually ambulate. At this time we will continue to treat just the cellulitis with Keflex for 5 more days, renally dosed. There is no crystals on the fluid analysis, and a uric acid was 7.2. 2. CKD 4-his creatinine on admission was 2.78 which is a little above baseline for him recently. On the day of discharge he was down to 2.26, he has an outpatient appointment already scheduled with Dr. Raymundo on May 10 at 10 AM. 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 Blood pressure was stable in the 140 systolic prior to discharge. 3. His other medical diagnoses were evaluated and his home medications were continued where appropriate - Physical Exam Vitals/I&O's: Vital Signs Temp Pulse Resp BP Pulse Ox 97.7 F L 65 18 143/69 H 96 04/09/19 14:00 04/09/19 14:12 04/09/19 14:00 04/09/19 14:12 04/09/19 14:00 Oxygen Delivery Method Room Air Weight: 346 lb 5.539 oz Body Mass Index (BMI) 55.3 Intake and Output for Last 24 Hours 04/07/19 04/08/19 04/09/19 23:59 23:59 23:59 Intake Total 1830 / 2330 3470 / 3470 1910 / 1910 Output Total 2550 / 2550 4100 / 4100 900 / 900 Balance -720 / -220 -630 / -630 1010 / 1010 General: Alert, Oriented x3, Cooperative, No apparent distress HEENT: Atraumatic, PERRLA, EOMI, Normocephalic Oral: Moist Mucosa Neck: Supple, No JVD Lungs: Clear to auscultation, Normal air movement, No rhonchi, No wheeze, No rales, Diminished Cardiovascular: Regular rate, Regular Rhythm, Normal S1, Normal S2, No murmurs Abdomen: Soft, Non Tender, Non-Distended, No Hepato-splenomegaly, Obese Extremities: Capillary Refill Less than 3 Seconds, Edema - Bilateral 2+ edema Skin: No rashes, No breakdown, - - Very little erythema in the area that had been marked previously Musculoskeletal: Tenderness - With passive movement of his left knee Neurological: Neuro grossly intact, Sensory exam intact to light touch and pain Psych/Mental Status: Normal Affect, Appropriate Microbiology Past 72 Hours 04/04/19 10:53 Blood Culture (Wb) - Anticubital Right Blood Culture - Final No growth in 5 days. 04/04/19 10:28 Blood Culture (Wb) - Left Hand Blood Culture - Final No growth in 5 days. 04/06/19 13:09 Fluid - Bursa Gram Stain - Final 04/06/19 13:09 Fluid - Bursa Body Fluid Culture - Final No growth aerobically. 04/06/19 13:09 Fluid - Bursa Anaerobic Culture - Preliminary No growth in 48 hours. Laboratory Results 04/06/19 13:08: Fl Crystal Path Review Reviewed 04/09/19 04:45: Sodium 138, Potassium 3.8, Chloride 109 H, Carbon Dioxide 22.0, BUN 33 H, Creatinine 2.26 H, Estim Creat Clear Calc 34.53, Est GFR (MDRD) Af Amer 39 L, Est GFR (MDRD) Non-Af 32 L, BUN/Creatinine Ratio 14.6, Glucose 88, Calcium 8.3 L, Phosphorus 4.4, Albumin 1.5 L Current Medications Acetaminophen (Tylenol) 650 mg PO Q6H PRN PRN PRN Reason: Pain Score 1-3/Temp > 100.7 F Last Admin: 04/09/19 08:31 Dose: 650 mg Documented by: Al Hydroxide/Mg Hydroxide (Mylanta Ii) 30 ml PO Q6H PRN PRN PRN Reason: Gastric Burning Albuterol Sulfate (Ventolin Aerosols) 2.5 mg INHALATION Q2H PRN PRN PRN Reason: Shortness of Breath/Wheezing Amlodipine Besylate (Norvasc) 10 mg PO DAILY [facility] Last Admin: 04/09/19 08:25 Dose: 10 mg Documented by: Aspirin (Aspirin, Baby) 81 mg PO DAILY@0800 [facility] Last Admin: 04/09/19 08:23 Dose: 81 mg Documented by: Atorvastatin Calcium (Lipitor) 40 mg PO QHS [facility] Last Admin: 04/08/19 21:43 Dose: 40 mg Documented by: Bupropion HCl (Wellbutrin Xl) 300 mg PO DAILY [facility] Last Admin: 04/09/19 08:26 Dose: 300 mg Documented by: Carvedilol (Coreg) 25 mg PO BID [facility] Last Admin: 04/09/19 08:24 Dose: 25 mg Documented by: Furosemide (Lasix) 80 mg PO BIDLX [facility] Last Admin: 04/09/19 08:25 Dose: 80 mg Documented by: Glucagon () 1 mg IM .X1 PRN PRN Reason: Hypoglycemia Hydralazine HCl (Apresoline Iv) 10 mg IV Q4H PRN PRN PRN Reason: SBP more than 180 mmHg Hydralazine HCl (Apresoline) 50 mg PO TID [facility] Last Admin: 04/09/19 14:12 Dose: 50 mg Documented by: Sodium Chloride () 250 mls @ 15 mls/hr IV .[id number] PRN PRN Reason: Saline Flush Last Infusion: 04/05/19 12:30 Dose: 0 mls/hr Documented by: Sodium Chloride () 250 mls @ 15 mls/hr IV .[id number] PRN PRN Reason: Additional IVPB Infusion Dextrose (Dextrose 10%-Water) 250 mls @ 999 mls/hr IV .Q16M PRN; Protocol PRN Reason: HYPOGLYCEMIA Cefazolin Sodium 2 gm/ Sodium (Chloride) 110 mls @ 150 mls/hr IV Q8 [facility] Last Admin: 04/09/19 14:11 Dose: 150 mls/hr Documented by: Insulin Glargine (Lantus (Bkc)) 80 units SC BID [facility] Last Admin: 04/09/19 08:25 Dose: Not Given Documented by: Insulin Human Lispro (Humalog Kwikpen (Bkc)) 0 unit SC ACHS [facility]; Protocol Last Admin: 04/09/19 11:51 Dose: Not Given Documented by: Insulin Human Lispro (Humalog Kwikpen (Bkc)) 40 unit SC TIDCM [facility] Last Admin: 04/09/19 11:51 Dose: Not Given Documented by: Morphine Sulfate () 2 mg IV Q3H PRN PRN PRN Reason: Pain Score 6-10/10 Last Admin: 04/07/19 14:34 Dose: 2 mg Documented by: Nitroglycerin (Nitrostat) 0.4 mg SUBLINGUAL Q5M PRN PRN Reason: CARDIAC/CHEST PAIN Ondansetron HCl (Zofran) 4 mg IV Q8H PRN PRN PRN Reason: NAUSEA/VOMITING Oxycodone HCl (Oxyir) 5 - 10 mg PO Q4H PRN PRN PRN Reason: Pain Score 4-5/10 Last Admin: 04/09/19 11:50 Dose: 10 mg Documented by: Pantoprazole Sodium (Protonix) 20 mg PO DAILY [facility] Last Admin: 04/09/19 08:25 Dose: 20 mg Documented by: Potassium [facility] Last Admin: 04/09/19 08:24 Dose: 20 meq Documented by: Prochlorperazine Edisylate (Compazine Iv) 5 mg IV Q4H PRN PRN PRN Reason: Breakthrough nausea/vomiting Senna/Docusate Sodium (Senokot-S, Coleen-Colace) 2 tablet PO BID PRN PRN PRN Reason: Constipation Sodium Chloride () 10 - 40 ml IV UD PRN PRN Reason: SALINE FLUSH Last Admin: 04/09/19 06:19 Dose: 20 ml Documented by: Discharge Activity: Return to Normal Activity Call your doctor if you observe: Fever of 101 or Higher, Shortness of breath, Dizziness, Fainting spells, Swelling in the ankles, Chest pain, Increased palpitations (irregular heartbeat) Home Medications: Medications to take at Discharge Aspirin [Aspirin, Baby] 81 mg PO DAILY@0800 10/16/15 Atorvastatin Calcium [Lipitor] 40 mg PO QHS 10/16/15 Carvedilol [Coreg (Beta Kody)] 25 mg PO BID 08/29/17 Omeprazole [Prilosec] 20 mg PO DAILY 08/29/17 amlodipine 5 mg tablet 10 mg PO QDAY tab 02/07/18 Bupropion HCl [Bupropion Xl] 300 mg PO DAILY 12/06/18 Furosemide [Lasix] 80 mg PO BID 12/06/18 Potassium Chloride [K-Dur] 20 meq PO BID 12/06/18 Insulin Glargine [Lantus SoloStar Pen] 80 units SUBCUT BID 04/04/19 Insulin Lispro [Humalog KwikPen] 30 - 50 unit SQ TIDCM 04/04/19 Cephalexin [Keflex] 500 mg PO Q8 #15 cap 04/09/19 Following Prescrptions Were Given to Patient: Cephalexin [Keflex] 500 mg PO Q8 #15 cap Transmission Status: Pending to [facility] Primary Care Physician: Betty Farrell MD [Primary Care Provider] - Please follow up with your Primary Care Physician in: 3-5 days Please Follow Up With: Catherine Raymundo DO When: 05/10/2019 10 am Please Follow Up With: Tamir Lackey MD When: 3-4 weeks Disposition: Home Minutes spent on discharge:: 35 Patient Condition:: Stable Medical Necessity - Tobacco Use Smoking Status: Never smoker Meaningful Use Info Meaningful Use Diagnoses (Choose all that apply): None applicable Code Visit Inpatient E&M: 42782 Disch Hosp
--- NOTE | 2019-04-09 14:46 | PN.ID_ITS ---
Subjective: Feeling much better, knee still sore but improves with movement. No fever, no n/v/d. Redness nearly resolved. - Physical Exam Vitals/I&O's: Vital Signs Temp Pulse Resp BP Pulse Ox 97.7 F L 65 18 143/69 H 96 04/09/19 14:00 04/09/19 14:12 04/09/19 14:00 04/09/19 14:12 04/09/19 14:00 Oxygen Delivery Method Room Air Weight: 157.1 kg Body Mass Index (BMI) 55.3 Intake and Output for Last 24 Hours 04/07/19 04/08/19 04/09/19 23:59 23:59 23:59 Intake Total 1830 / 2330 3470 / 3470 1910 / 1910 Output Total 2550 / 2550 4100 / 4100 900 / 900 Balance -720 / -220 -630 / -630 1010 / 1010 General: Cooperative, No apparent distress Lungs: Clear to auscultation, Normal air movement Cardiovascular: Regular rate, Regular Rhythm Abdomen: Soft, Non Tender, Non-Distended Skin: Rash Present - mild erythema over L knee Microbiology Past 72 Hours 04/04/19 10:53 Blood Culture (Wb) - Anticubital Right Blood Culture - Final No growth in 5 days. 04/04/19 10:28 Blood Culture (Wb) - Left Hand Blood Culture - Final No growth in 5 days. 04/06/19 13:09 Fluid - Bursa Gram Stain - Final 04/06/19 13:09 Fluid - Bursa Body Fluid Culture - Final No growth aerobically. 04/06/19 13:09 Fluid - Bursa Anaerobic Culture - Preliminary No growth in 48 hours. Laboratory Results 04/06/19 13:08: Fl Crystal Path Review Reviewed 04/09/19 04:45: Sodium 138, Potassium 3.8, Chloride 109 H, Carbon Dioxide 22.0, BUN 33 H, Creatinine 2.26 H, Estim Creat Clear Calc 34.53, Est GFR (MDRD) Af Amer 39 L, Est GFR (MDRD) Non-Af 32 L, BUN/Creatinine Ratio 14.6, Glucose 88, Calcium 8.3 L, Phosphorus 4.4, Albumin 1.5 L Current Medications Acetaminophen (Tylenol) 650 mg PO Q6H PRN PRN PRN Reason: Pain Score 1-3/Temp > 100.7 F Last Admin: 04/09/19 08:31 Dose: 650 mg Documented by: Al Hydroxide/Mg Hydroxide (Mylanta Ii) 30 ml PO Q6H PRN PRN PRN Reason: Gastric Burning Albuterol Sulfate (Ventolin Aerosols) 2.5 mg INHALATION Q2H PRN PRN PRN Reason: Shortness of Breath/Wheezing Amlodipine Besylate (Norvasc) 10 mg PO DAILY [facility] Last Admin: 04/09/19 08:25 Dose: 10 mg Documented by: Aspirin (Aspirin, Baby) 81 mg PO DAILY@0800 [facility] Last Admin: 04/09/19 08:23 Dose: 81 mg Documented by: Atorvastatin Calcium (Lipitor) 40 mg PO QHS [facility] Last Admin: 04/08/19 21:43 Dose: 40 mg Documented by: Bupropion HCl (Wellbutrin Xl) 300 mg PO DAILY [facility] Last Admin: 04/09/19 08:26 Dose: 300 mg Documented by: Carvedilol (Coreg) 25 mg PO BID [facility] Last Admin: 04/09/19 08:24 Dose: 25 mg Documented by: Furosemide (Lasix) 80 mg PO BIDLX [facility] Last Admin: 04/09/19 08:25 Dose: 80 mg Documented by: Glucagon () 1 mg IM .X1 PRN PRN Reason: Hypoglycemia Hydralazine HCl (Apresoline Iv) 10 mg IV Q4H PRN PRN PRN Reason: SBP more than 180 mmHg Hydralazine HCl (Apresoline) 50 mg PO TID [facility] Last Admin: 04/09/19 14:12 Dose: 50 mg Documented by: Sodium Chloride () 250 mls @ 15 mls/hr IV .[id number] PRN PRN Reason: Saline Flush Last Infusion: 04/05/19 12:30 Dose: 0 mls/hr Documented by: Sodium Chloride () 250 mls @ 15 mls/hr IV .[id number] PRN PRN Reason: Additional IVPB Infusion Dextrose (Dextrose 10%-Water) 250 mls @ 999 mls/hr IV .Q16M PRN; Protocol PRN Reason: HYPOGLYCEMIA Cefazolin Sodium 2 gm/ Sodium (Chloride) 110 mls @ 150 mls/hr IV Q8 [facility] Last Admin: 04/09/19 14:11 Dose: 150 mls/hr Documented by: Insulin Glargine (Lantus (Bk)) 80 units SC BID [facility] Last Admin: 04/09/19 08:25 Dose: Not Given Documented by: Insulin Human Lispro (Humalog Kwikpen (Bk)) 0 unit SC ACHS [facility]; Protocol Last Admin: 04/09/19 11:51 Dose: Not Given Documented by: Insulin Human Lispro (Humalog Kwikpen (Bk)) 40 unit SC TIDCM [facility] Last Admin: 04/09/19 11:51 Dose: Not Given Documented by: Morphine Sulfate () 2 mg IV Q3H PRN PRN PRN Reason: Pain Score 6-10/10 Last Admin: 04/07/19 14:34 Dose: 2 mg Documented by: Nitroglycerin (Nitrostat) 0.4 mg SUBLINGUAL Q5M PRN PRN Reason: CARDIAC/CHEST PAIN Ondansetron HCl (Zofran) 4 mg IV Q8H PRN PRN PRN Reason: NAUSEA/VOMITING Oxycodone HCl (Oxyir) 5 - 10 mg PO Q4H PRN PRN PRN Reason: Pain Score 4-5/10 Last Admin: 04/09/19 11:50 Dose: 10 mg Documented by: Pantoprazole Sodium (Protonix) 20 mg PO DAILY [facility] Last Admin: 04/09/19 08:25 Dose: 20 mg Documented by: Potassium Chloride (K-Dur) 20 meq PO BIDCM [facility] Last Admin: 04/09/19 08:24 Dose: 20 meq Documented by: Prochlorperazine Edisylate (Compazine Iv) 5 mg IV Q4H PRN PRN PRN Reason: Breakthrough nausea/vomiting Senna/Docusate Sodium (Senokot-S, Coleen-Colace) 2 tablet PO BID PRN PRN PRN Reason: Constipation Sodium Chloride () 10 - 40 ml IV UD PRN PRN Reason: SALINE FLUSH Last Admin: 04/09/19 06:19 Dose: 20 ml Documented by: Medical Necessity - Tobacco Use Smoking Status: Never smoker Route of nutrition/ use of supplements: [] Nutritional Intake: [] IV Site: [] Burt Catheter: [] - Assessment/Plan Antibiotics: [] Assessment/Plan: [] LLE cellulitis, overall much improved. Seen by Dr. Laws for bursitis. Knee aspiration cx neg. Ok for d/c home on short course of keflex. TALITA on CKD has been improving. Will follow, d/w Dr. Lyons. Plan on followup with Dr. Lackey for possibl e retirement prophylaxis.
--- NOTE | 2019-04-10 16:26 | CASEMGMT ---
Case Management DC F/u Call: DC Date: 04/09/2019 DC Diagnosis: None listed. 1. Sepsis secondary to cellulitis/left knee bursitis 2. CKD 4 DC Disposition: Home Lace/Strata: 16/07 Called patient cell phone listed on demographics, patient answered, this scenario writer introduced self and role. Patient state I'm doing good. Confirmed filled DC medications. Denies any issues, questions or concerns with ACI, medications or f/u. States made an appointment with his PCP Dr Farrell for 04/17/2019. Has an appointment scheduled with Nephro Dr Raymundo on 05/10/2019 at 10am and an appointment with ID Dr Lackey on 04/30/2019 at 1315. Thanked patient for choosing care at [facility] and ended conversation. Gordy Sr RNCM
== END 2019-04-09 16:04 | disposition home or self-care (01) | DRG 872 ==
LOC: ED 11:15 → MS3 11:49
PROVIDERS: Internal Medicine; Internal Medicine Nephrology; Orthopaedic Surgery; Admitting Provider Internal Medicine; Emergency Provider Emergency Medicine; Family Provider Internal Medicine; PCP Internal Medicine; Referring Provider Internal Medicine; Visit Provider Family Medicine
DX: A41.9 Sepsis, unspecified organism (principal); I13.0 Hypertensive heart and chronic kidney disease with heart failure and stage 1 through stage 4 chronic kidney disease, or unspecified chronic kidney disease; Z68.43 Body mass index [BMI] 50.0-59.9, adult; I50.32 Chronic diastolic (congestive) heart failure; L03.116 Cellulitis of left lower limb; N18.4 Chronic kidney disease, stage 4 (severe); Z23 Encounter for immunization; I25.10 Atherosclerotic heart disease of native coronary artery without angina pectoris; E11.22 Type 2 diabetes mellitus with diabetic chronic kidney disease; E66.01 Morbid (severe) obesity due to excess calories; M71.562 Other bursitis, not elsewhere classified, left knee; E11.65 Type 2 diabetes mellitus with hyperglycemia; Z95.1 Presence of aortocoronary bypass graft; Z86.14 Personal history of Methicillin resistant Staphylococcus aureus infection; Z79.4 Long term (current) use of insulin; E78.00 Pure hypercholesterolemia, unspecified; I89.0 Lymphedema, not elsewhere classified; I27.21 Secondary pulmonary arterial hypertension
CPT/HCPCS: 36415; 73560; 80048; 80053; 80069; 83036; 83605; 84550; 85025; 86140; 87040; 87070; 87075; 87205; 87641; 89050; 89051; 89060; 93970; 99251; 99285; J7030; J7040; J7050; 90686; A4216; G0463; J0696

== ENCOUNTER → 2019-05-02 11:25 | Outpatient (CLI) | payer OTHER, MEDICARE, SELFPAY ==
[2018-12-22 08:49] VITALS: BMI 54.5
[2019-04-26 09:13] VITALS: BMI 54.1
[2019-05-02 12:36] LABS: Albumin, Serum 1.9 g/dL (3.2-5.0); BUN 26 mg/dL (7-18); Calcium,Total 8.4 mg/dL (8.5-10.1); Chloride 111 mmol/L (98-107); EST Glomerular Filtration Rate 37 mL/min (>60); Est Glom Filt Rate - Afr Amer 45 mL/min (>60); Glucose 137 mg/dL (74-106); Phosphorus 3.6 mg/dL (2.5-4.9); Potassium 3.9 mmol/L (3.5-5.1); Sodium Level 139 mmol/L (136-145)
[2019-05-02 12:41] LABS: Protein, Urine (Random) 690.3 mg/dL (<11.9); Protein:Creat Ratio 13456 mg/g CRE (0-200)
[2019-05-02 12:43] LABS: PTHIN 260.3 pg/mL (18.4-80.1)
== END ==
PROVIDERS: Family Provider Internal Medicine; PCP Internal Medicine; Referring Provider Internal Medicine Nephrology; Visit Provider Internal Medicine Nephrology
DX: E11.22 Type 2 diabetes mellitus with diabetic chronic kidney disease (principal); N18.3 Chronic kidney disease, stage 3 (moderate); N25.81 Secondary hyperparathyroidism of renal origin; E11.21 Type 2 diabetes mellitus with diabetic nephropathy
CPT/HCPCS: 36415; 80069; 82570; 83970; 84156

== ENCOUNTER → 2019-08-16 10:20 | Outpatient (CLI) | payer OTHER, MEDICARE, SELFPAY ==
[2019-04-26 09:13] VITALS: BMI 54.1
[2019-08-16 12:31] LABS: Hematocrit 37.9 % (40-54); Hemoglobin 12.1 g/dL (13.0-16.5); Mean Corp Hgb Conc 31.9 g/dL (32-36); Mean Corpuscular Hgb 27.1 pg (27.0-32.0); Mean Platelet Vol. 10.4 fl (6.2-12.0); Platelet Count 220 K/mm3 (150-450); RBC Distribution Width CV 14.2 % (11.6-14.6); RBC Distribution Width SD 43.4 fl (35.1-43.9); Red Blood Count 4.46 M/mm3 (4.6-6.2); White Blood Count 6.3 K/mm3 (4.4-11.0)
[2019-08-16 12:55] LABS: Albumin, Serum 2.5 g/dL (3.2-5.0); BUN 49 mg/dL (7-18); BUN/Creat Ratio 18.1 RATIO (10-20); Calcium,Total 8.8 mg/dL (8.5-10.1); Chloride 101 mmol/L (98-107); EST Glomerular Filtration Rate 26 mL/min (>60); Est Glom Filt Rate - Afr Amer 32 mL/min (>60); Glucose 276 mg/dL (74-106); Potassium 3.6 mmol/L (3.5-5.1); Sodium Level 135 mmol/L (136-145)
[2019-08-16 13:25] LABS: PTHIN 223.5 pg/mL (18.4-80.1)
== END ==
PROVIDERS: PCP Internal Medicine; Visit Provider Internal Medicine Nephrology
DX: E11.21 Type 2 diabetes mellitus with diabetic nephropathy (principal); N18.3 Chronic kidney disease, stage 3 (moderate); N25.81 Secondary hyperparathyroidism of renal origin
CPT/HCPCS: 36415; 80069; 83970; 85027

== ENCOUNTER → 2019-09-20 10:33 | Outpatient (CLI) | payer OTHER, MEDICARE, SELFPAY ==
[2019-04-26 09:13] VITALS: BMI 54.1
[2019-09-20 13:10] LABS: Anion Gap 10 (5-15); BUN 62 mg/dL (7-18); BUN/Creat Ratio 20.1 RATIO (10-20); Calcium,Total 8.5 mg/dL (8.5-10.1); Chloride 101 mmol/L (98-107); Creatinine, Serum 3.09 mg/dL (0.70-1.30); EST Glomerular Filtration Rate 22 mL/min (>60); Est Glom Filt Rate - Afr Amer 27 mL/min (>60); Glucose 239 mg/dL (74-106); Potassium 3.4 mmol/L (3.5-5.1); Sodium Level 136 mmol/L (136-145)
== END ==
PROVIDERS: PCP Internal Medicine; Visit Provider Internal Medicine Nephrology
DX: N17.9 Acute kidney failure, unspecified (principal)
CPT/HCPCS: 36415; 80048

== ENCOUNTER → 2019-09-28 09:06 | Outpatient (CLI) | payer OTHER, MEDICARE, SELFPAY ==
[2019-04-26 09:13] VITALS: BMI 54.1
[2019-09-28 12:34] LABS: Albumin, Serum 2.6 g/dL (3.2-5.0); BUN 56 mg/dL (7-18); BUN/Creat Ratio 20.7 RATIO (10-20); Chloride 104 mmol/L (98-107); EST Glomerular Filtration Rate 26 mL/min (>60); Est Glom Filt Rate - Afr Amer 32 mL/min (>60); Glucose 271 mg/dL (74-106); Phosphorus 4.4 mg/dL (2.5-4.9); Potassium 3.8 mmol/L (3.5-5.1); Sodium Level 136 mmol/L (136-145)
== END ==
PROVIDERS: PCP Internal Medicine; Visit Provider Internal Medicine Nephrology
DX: N17.9 Acute kidney failure, unspecified (principal)
CPT/HCPCS: 36415; 80069

== ENCOUNTER → 2019-10-25 10:06 | Outpatient (CLI) | payer OTHER, MEDICARE, SELFPAY ==
[2019-10-25 09:56] VITALS: BMI 59.0
--- NOTE | 2019-10-25 10:10 | RAD_ITS ---
STUDY: X-RAY CHEST REASON FOR EXAM: Male, 54 years old. Shortness of breath TECHNIQUE: PA and lateral views of the chest. COMPARISON: 12/08/2018 FINDINGS: There are interstitial fibrotic changes of the lungs. There is no demonstrated pleural abnormality. Sternal cerclage wires and vascular clips are present from a prior sternotomy and coronary artery bypass graft procedure (CABG). Normal mediastinum and jordon. Normal visualized pulmonary arteries. Normal visualized aortic arch and descending thoracic aorta. There are diffuse degenerative changes of the visualized thoracic spine. Normal visualized ribs, clavicles, and shoulders. There is no demonstrated abnormality of the visualized soft tissue structures of the upper abdomen. RAD/Chest PA and Lateral IMPRESSION: Degenerative changes, as described above. No demonstrated acute cardiopulmonary process. Electronically Signed: Isac Cartwright MD at 10:28 EDT , Service support ,
[2019-10-25 12:22] LABS: Anion Gap 4 (5-15); BUN 42 mg/dL (7-18); BUN/Creat Ratio 15.7 RATIO (10-20); Calcium,Total 8.8 mg/dL (8.5-10.1); Chloride 111 mmol/L (98-107); Creatinine, Serum 2.67 mg/dL (0.70-1.30); EST Glomerular Filtration Rate 26 mL/min (>60); Est Glom Filt Rate - Afr Amer 32 mL/min (>60); Glucose 120 mg/dL (74-106); Magnesium 2.1 mg/dL (1.6-2.6); Potassium 4.7 mmol/L (3.5-5.1); Sodium Level 136 mmol/L (136-145)
[2019-10-25 12:24] LABS: BNP,B-Type NATRIURETIC PEPTIDE 365.2 pg/mL (0-100)
== END ==
PROVIDERS: PCP Internal Medicine; Referring Provider Nurse Practitioner Family; Visit Provider Nurse Practitioner Family
DX: R06.00 Dyspnea, unspecified (principal); I25.10 Atherosclerotic heart disease of native coronary artery without angina pectoris; N18.3 Chronic kidney disease, stage 3 (moderate); I51.89 Other ill-defined heart diseases; Z95.1 Presence of aortocoronary bypass graft; Z95.5 Presence of coronary angioplasty implant and graft
CPT/HCPCS: 36415; 71046; 80048; 83735; 83880

== ENCOUNTER → 2019-11-12 09:32 | Outpatient (CLI) | payer OTHER, MEDICARE, SELFPAY ==
[2019-04-26 09:13] VITALS: BMI 54.1
[2019-11-08 08:59] VITALS: BMI 57.4
[2019-11-12 11:24] LABS: Albumin, Serum 2.5 g/dL (3.2-5.0); BUN 42 mg/dL (7-18); BUN/Creat Ratio 14.5 RATIO (10-20); Calcium,Total 8.3 mg/dL (8.5-10.1); Chloride 103 mmol/L (98-107); Creatinine, Serum 2.89 mg/dL (0.70-1.30); EST Glomerular Filtration Rate 24 mL/min (>60); Est Glom Filt Rate - Afr Amer 29 mL/min (>60); Glucose 191 mg/dL (74-106); Phosphorus 4.1 mg/dL (2.5-4.9); Potassium 3.7 mmol/L (3.5-5.1); Sodium Level 138 mmol/L (136-145)
[2019-11-13 11:33] LABS: PTHIN 281.3 pg/mL (18.4-80.1)
== END ==
PROVIDERS: PCP Internal Medicine; Visit Provider Internal Medicine Nephrology
DX: N18.3 Chronic kidney disease, stage 3 (moderate) (principal); N25.81 Secondary hyperparathyroidism of renal origin
CPT/HCPCS: 36415; 80069; 83970

== ENCOUNTER → 2019-12-17 12:03 | Outpatient (CLI) | payer OTHER, MEDICARE, SELFPAY ==
[2019-11-08 08:59] VITALS: BMI 57.4
[2019-12-17 17:34] LABS: PTHIN 222.4 pg/mL (18.4-80.1)
[2019-12-17 17:43] LABS: Albumin, Serum 2.7 g/dL (3.2-5.0); BUN 59 mg/dL (7-18); Calcium,Total 8.5 mg/dL (8.5-10.1); Chloride 106 mmol/L (98-107); Creatinine, Serum 3.27 mg/dL (0.70-1.30); EST Glomerular Filtration Rate 21 mL/min (>60); Est Glom Filt Rate - Afr Amer 25 mL/min (>60); Glucose 218 mg/dL (74-106); Potassium 3.7 mmol/L (3.5-5.1); Sodium Level 137 mmol/L (136-145)
== END ==
PROVIDERS: PCP Internal Medicine; Visit Provider Internal Medicine Nephrology
DX: N17.9 Acute kidney failure, unspecified (principal); N18.3 Chronic kidney disease, stage 3 (moderate); N25.81 Secondary hyperparathyroidism of renal origin
CPT/HCPCS: 36415; 80069; 83970

== ENCOUNTER → 2020-02-11 11:15 | Outpatient (CLI) | payer OTHER, MEDICARE, SELFPAY ==
[2019-11-08 08:59] VITALS: BMI 57.4
[2020-02-11 10:27] VITALS: BMI 59.6
[2020-02-11 12:04] LABS: Absolute Lymphocyte Count 1.13 X10^3/uL (0.83-4.51); Basophil# 0.05 X10^3/uL; Basophil% 0.7 % (0-1); Eosinophil# 0.37 X10^3/uL; Eosinophils% 5.3 % (0-5); Hematocrit 25.2 % (40-54); Hemoglobin 7.2 g/dL (13.0-16.5); Lymphocyte # 1.13 X10^3/ul (4.0); Lymphocyte % 16.1 % (19-41); Mean Corp Hgb Conc 28.6 g/dL (32-36); Mean Corpuscular Volume 80.5 fL (80-94); Mean Platelet Vol. 9.6 fl (6.2-12.0); Monocyte# 0.45 X10^3/uL; Monocyte% 6.4 % (0-10); NRBC Flagged by Analyzer 0 % (0-5); Neutrophil # 4.97 X10^3/uL (2.7-7.7); Neutrophil % 70.6 % (47-70); Platelet Count 203 K/mm3 (150-450); RBC Distribution Width CV 16.5 % (11.6-14.6); RBC Distribution Width SD 47.8 fl (35.1-43.9); Red Blood Count 3.13 M/mm3 (4.6-6.2)
[2020-02-11 12:28] LABS: PTHIN 308.6 pg/mL (18.4-80.1)
[2020-02-11 12:29] LABS: BNP,B-Type NATRIURETIC PEPTIDE 548.8 pg/mL (0-100)
[2020-02-11 13:02] LABS: Albumin, Serum 2.6 g/dL (3.2-5.0); BUN 52 mg/dL (7-18); BUN/Creat Ratio 17.3 RATIO (10-20); Calcium,Total 8.3 mg/dL (8.5-10.1); Chloride 105 mmol/L (98-107); Creatinine, Serum 3.01 mg/dL (0.70-1.30); EST Glomerular Filtration Rate 23 mL/min (>60); Est Glom Filt Rate - Afr Amer 28 mL/min (>60); Glucose 211 mg/dL (74-106); Phosphorus 3.9 mg/dL (2.5-4.9); Potassium 3.7 mmol/L (3.5-5.1); Sodium Level 137 mmol/L (136-145)
== END ==
PROVIDERS: Physician Assistant Medical; PCP Internal Medicine; Visit Provider Internal Medicine Nephrology
DX: N17.9 Acute kidney failure, unspecified (principal); N18.30 Chronic kidney disease, stage 3 unspecified; I50.31 Acute diastolic (congestive) heart failure; I25.10 Atherosclerotic heart disease of native coronary artery without angina pectoris; I51.89 Other ill-defined heart diseases; N25.81 Secondary hyperparathyroidism of renal origin
CPT/HCPCS: 36415; 80069; 83880; 83970; 85025

== ENCOUNTER 2020-02-11 13:37 | Emergency (ER) | payer OTHER, MEDICARE, SELFPAY ==
[2020-02-11] VITALS (16 sets, daily range): BP systolic 99–189; BP diastolic 63–97; PULSE 66–74; RESP 16–24; TEMP 36.4–37; O2SAT 92–97; BMI 59.6; BMI 60.2
--- NOTE | 2020-02-11 14:01 | EKG12_ITS ---
Test Reason : CP Blood Pressure : / mmHG Vent. Rate : 072 BPM Atrial Rate : 072 BPM P-R Int : 166 ms QRS Dur : 106 ms QT Int : 416 ms P-R-T Axes : 063 100 147 degrees QTc Int : 455 ms Sinus rhythm with Premature atrial complexes with Aberrant conduction Rightward axis Nonspecific ST and T wave abnormality Abnormal ECG Confirmed by SONIA QUIROZ, KRISTAL ([id number]), field map editor RITU JAY ([id number]) on 02/13/2020 8:40:33 AM Referred By: DIAMANTE Confirmed By:KRISTAL SCOTT MD
--- NOTE | 2020-02-11 14:02 | ED.VIS.GEN ---
History of Present Illness Chief Complaint: Chest Pain Informant: Patient Onset: Weeks - 3-4 Context: Gradual Onset Timing: Continuous Quality: Short of breath Current Severity: - - Gone now while sitting/resting Maximum Severity: Severe Worsened by: Mild exertion Relieved by: Rest Associated Symptoms: no cp Narrative: 54-year-old male with a history of coronary disease and congestive heart failure was at the [facility] this morning, had some blood work done, was told that he is very anemic with a hemoglobin of 7 and that he should come to the emergency department for a blood transfusion. He states he has had dyspnea with exertion for the past 3 to 4 weeks that is fairly unusual for him, there is no association with any chest discomfort. He has had no fevers or chills. He was going to get tested as an outpatient for Covid as well but has not had that test done yet. He also has a history of chronic renal problems which is also being followed. He states his legs been more swollen than usual lately and he feels edematous and more heavy. - Past Medical History (1) Atherosclerosis of coronary artery of [place] heart without angina pectoris Status: Chronic (2) Chronic kidney disease, stage III (moderate) Status: Chronic (3) Diastolic dysfunction Status: Chronic (4) Essential (primary) hypertension Status: Chronic (5) Old inferolateral myocardial infarction Status: Chronic (6) Pure hypercholesterolemia Status: Chronic (7) Secondary pulmonary arterial hypertension Status: Chronic (8) History of coronary artery stent placement Status: Resolved Comment: PCI-CHRIS-Mid LCx 2008 Past Medical History - Allergies and Home Meds Allergies/Adverse Reactions: Allergies pravastatin sodium [From Pravachol] Adverse Reaction (Intermediate, Verified 02/11/20 10:22) muscle aches ACHY MUSCLES Primary Care Physician: Betty Farrell MD [Primary Care Provider] - Doctors: Zackary - Nephrology; Daniel - Cardiology Surgical History: coronary bypass surgery Smoking Status: Never smoker - Family History Paternal Family History: Family History (Last Reviewed 02/11/20 @ 10:46 by Adele CANO, PA) Father Hypertension Family History: Reports: Hypertension Maternal Family History: Family History (Last Reviewed 02/11/20 @ 10:46 by Adele CANO, PA) Father Hypertension Family History: Reports: Cancer - brain, Seizures Review of Systems General: Denies: Chills, Fever, Sweats Eyes: Denies: Visual changes - bilaterally, Diplopia ENT: Denies: Rhinorrhea, Sore throat Cardiovascular: Denies: Chest pain, Palpitations Respiratory: Reports: Cough - Only when he gets short of breath with exertion, which resulted in him coughing up some phlegm, Dyspnea on exertion Gastrointestinal: Reports: Hematochezia - Very small amount on occasion due to external hemorrhoids, chronic. Denies: Abdominal pain, Nausea, Vomiting, Diarrhea, Melena Genitourinary: Denies: Dysuria, Hematuria, Frequency Musculoskeletal: Reports: Arthralgias, Swelling - More swollen than usual last week or 2 in his legs. Denies: Myalgias, Extremity Pain Skin: Denies: Rash, Wounds Neurological: Denies: Headache, Weakness, Numbness Physical Exam Vital Signs/Narrative: Vital Signs Temp Pulse Resp BP Pulse Ox 02/11/20 13:38 98.6 F 71 24 H 99/84 H 95 Inital Vital Signs reviewed: Yes General: Well nourished, Well developed, Obese, No Acute Distress Head: Normocephalic, Atraumatic Eyes: Perrl, EOMI ENT: Moist mucous membranes, No rhinorrhea Neck: Supple, Nontender Cardiovascular: Regular rate, Regular rhythm, No murmurs Respiratory: No distress, CTA bilaterally, Chest nontender Abdomen: Soft, Nontender, Nondistended, Normal bowel sounds Back: Nontender, Normal Inspection Extremities: Nontender, Edema - 2+ both lower extremities to the knees, symmetric Skin: Normal color, No rash, No Trauma Neurological: Alert, Oriented x3, Cranial nerves II-XII grossly intact, Normal Strength, Normal Sensation Psychological: Normal affect, Normal Mood Diagnostic/Tx/Re-eval Laboratory Results 02/11/20 02/11/20 13:50 13:50 Blood Type A POSITIVE Antibody Screen NEGATIVE Crossmatch See Detail See Detail - Rhythm Strip Rhythm Strip: Sinus Rhythm Rate: 72 Ectopy: None - EKG Initial EKG Interpretation: Sinus Rhythm, No Acute Injury Pattern, - - R axis Prior: Unchanged - Medical Decision Making I reviewed patient labs, his hemoglobin is 7.2, down from 12 earlier in the year. His renal function shows a creatinine to 3.01, it was 3.2 several months ago. The rest of his labs are stable/unremarkable. His vital signs are stable, with a blood pressure 146/63 at this time, the rest of them are normal. He has been having no chest discomfort. I consented him for packed red blood cell transfusion. He was in agreement. I discussed with Dr. Sanchez. He recommended transfusing him with 2 units to buy him more time prior to discharge, giving him a dose of Lasix in between the units. With regards to his increased edema, he recommended leaving the metaxalone alone and increasing his Lasix from 40 twice daily to 60 twice daily. With regards to the anemia he recommends following up with his primary care doctor for further work-up, I also think he should follow-up with nephrology because I think it is more likely to be anemia of chronic disease given the history and his renal failure. Patient states he has an appointment with Dr. Raymundo in approximately 9 days anyhow, for nephrology care. I discussed all this with her and she denies anything else to add. Both were comfortable with discharging the patient home as was the patient. My suspicion is that the majority of his dyspnea with exertion is due to the anemia as opposed to his congestive heart failure. His lungs are clear. We discussed reasons to return. ED Disposition - Plan for ED Patient: Disposition: Home or Assisted Living Diagnosis: Symptomatic anemia, Chronic kidney disease, stage III (moderate), Diastolic congestive heart failure Instructions: ED Anemia Type Not Specified, ED CHF General Prescriptions: Furosemide [Lasix] 20 mg PO BID #28 tab Transmission Status: Pending to [facility] Referrals: Betty Farrell MD [Primary Care Provider] - As soon as possible (for further evaluation of anemia) Catherine Raymundo DO [STAFF PHYSICIAN] - Keep Bessie appointment Additional Instructions: Take the new Lasix prescription in addition to your existing Lasix prescription so that you are taking 60 mg twice daily.
[2020-02-11] MEDS: Furosemide 40 MG/4 ML Vial IV (18:23)
== END 2020-02-11 20:48 | disposition home or self-care (01) ==
PROVIDERS: Emergency Provider Emergency Medicine; PCP Internal Medicine
DX: D64.9 Anemia, unspecified (principal); K92.1 Melena; I13.0 Hypertensive heart and chronic kidney disease with heart failure and stage 1 through stage 4 chronic kidney disease, or unspecified chronic kidney disease; I50.30 Unspecified diastolic (congestive) heart failure; N18.30 Chronic kidney disease, stage 3 unspecified; I25.10 Atherosclerotic heart disease of native coronary artery without angina pectoris; I25.2 Old myocardial infarction; E78.00 Pure hypercholesterolemia, unspecified; I27.21 Secondary pulmonary arterial hypertension; Z95.5 Presence of coronary angioplasty implant and graft; Z20.828 Contact with and (suspected) exposure to other viral communicable diseases; E66.9 Obesity, unspecified
CPT/HCPCS: 36430; 86850; 86900; 86901; 86920; 86922; 87635; 93005; 96374; 99285; J7050; P9016; J1940; U0003

== ENCOUNTER → 2020-09-02 14:03 | Outpatient (CLI) | payer OTHER, MEDICARE, SELFPAY ==
[2020-02-11 13:38] VITALS: BMI 60.2
[2020-07-15 15:53] VITALS: BMI 56.0
[2020-09-02 15:17] LABS: Protein, Urine (Random) 195.1 mg/dL (<11.9); Protein:Creat Ratio 2240 mg/g CRE (0-200)
[2020-09-02 15:37] LABS: Anion Gap 14 (5-15); BUN/Creat Ratio 23.5 RATIO (10-20); Calcium,Total 7.6 mg/dL (8.5-10.1); Chloride 98 mmol/L (98-107); Creatinine, Serum 4.55 mg/dL (0.70-1.30); EST Glomerular Filtration Rate 14 mL/min (>60); Est Glom Filt Rate - Afr Amer 17 mL/min (>60); Glucose 155 mg/dL (74-106); Sodium Level 136 mmol/L (136-145)
[2020-09-02 15:46] LABS: BUN 107 mg/dL (7-18)
[2020-09-02 15:48] LABS: Potassium 2.7 mmol/L (3.5-5.1)
== END ==
PROVIDERS: PCP Internal Medicine; Referring Provider Internal Medicine Nephrology; Visit Provider Internal Medicine Nephrology
DX: N18.4 Chronic kidney disease, stage 4 (severe) (principal)
CPT/HCPCS: 36415; 80048; 82570; 84156

== ENCOUNTER → 2020-10-14 09:30 | Outpatient (CLI) | payer OTHER, MEDICARE, SELFPAY ==
[2020-07-15 15:53] VITALS: BMI 56.0
[2020-10-14 10:33] LABS: Anion Gap 11 (5-15); BUN 72 mg/dL (7-18); BUN/Creat Ratio 18.4 RATIO (10-20); Calcium,Total 8.1 mg/dL (8.5-10.1); Chloride 99 mmol/L (98-107); Creatinine, Serum 3.91 mg/dL (0.70-1.30); EST Glomerular Filtration Rate 17 mL/min (>60); Est Glom Filt Rate - Afr Amer 21 mL/min (>60); Glucose 129 mg/dL (74-106); Potassium 3.6 mmol/L (3.5-5.1); Sodium Level 135 mmol/L (136-145)
== END ==
PROVIDERS: PCP Internal Medicine; Referring Provider Internal Medicine Nephrology; Visit Provider Internal Medicine Nephrology
DX: N18.4 Chronic kidney disease, stage 4 (severe) (principal); E87.6 Hypokalemia
CPT/HCPCS: 36415; 80048

== ENCOUNTER 2020-11-17 05:34 | Day surgery (SDC) | payer OTHER, MEDICARE, SELFPAY ==
[2020-10-27 12:53] VITALS: BMI 55.0
--- NOTE | 2020-11-12 09:49 | EKG12_ITS ---
Test Reason : PRE OP Blood Pressure : / mmHG Vent. Rate : 058 BPM Atrial Rate : 058 BPM P-R Int : 172 ms QRS Dur : 110 ms QT Int : 470 ms P-R-T Axes : 053 064 104 degrees QTc Int : 461 ms Sinus bradycardia Nonspecific ST and T wave abnormality Poor R wave progression Confirmed by SONIA QUIROZ, KRISTAL ([id number]), newspaper editor RITU JAY ([id number]) on 11/13/2020 10:42:12 AM Referred By: Rafael Chávez Confirmed By:KRISTAL SCOTT MD
[2020-11-12 11:26] LABS: Hematocrit 32.5 % (40-54); Hemoglobin 10.2 g/dL (13.0-16.5); Mean Corp Hgb Conc 31.4 g/dL (32-36); Mean Corpuscular Hgb 26.4 pg (27.0-32.0); Mean Corpuscular Volume 84.2 fL (80-94); Mean Platelet Vol. 10.2 fl (6.2-12.0); Platelet Count 279 K/mm3 (150-450); RBC Distribution Width CV 14.8 % (11.6-14.6); RBC Distribution Width SD 45.6 fl (35.1-43.9); Red Blood Count 3.86 M/mm3 (4.6-6.2); White Blood Count 8.6 K/mm3 (4.4-11.0)
[2020-11-12 12:05] LABS: Anion Gap 10 (5-15); BUN 79 mg/dL (7-18); BUN/Creat Ratio 23.5 RATIO (10-20); Calcium,Total 8.4 mg/dL (8.5-10.1); Chloride 104 mmol/L (98-107); Creatinine, Serum 3.36 mg/dL (0.70-1.30); EST Glomerular Filtration Rate 20 mL/min (>60); Est Glom Filt Rate - Afr Amer 24 mL/min (>60); Glucose 196 mg/dL (74-106); Sodium Level 135 mmol/L (136-145)
[2020-11-17] VITALS (8 sets, daily range): BP systolic 101–155; BP diastolic 53–76; PULSE 51–58; RESP 16–18; TEMP 36–36.8; O2SAT 92–98; BMI 56.1
--- NOTE | 2020-11-17 06:02 | PCM.HP.BLA ---
History and Physical Date of Admission: 11/17/20 Intake Visit Reasons: NEEDS FISTULA, VEIN MAPPING @[facility] Chief Complaint: Discuss Fistula placement Design Chief Required: No Accompanied by: Is patient in pain?: No Allergies pravastatin sodium [From Pravachol] Adverse Reaction (Intermediate, Verified 10/27/20 12:54) muscle aches Medications aspirin 81 mg PO DAILY@0800 10/16/15 [History Confirmed 10/27/20] carvedilol 25 mg PO BID 08/29/17 [History Confirmed 10/27/20] omeprazole 20 mg PO DAILY 08/29/17 [History Confirmed 10/27/20] amlodipine 10 mg tablet 10 mg PO DAILY 04/26/19 [History Confirmed 10/27/20] losartan 100 mg tablet 100 mg PO DAILY tab 04/26/19 [History Confirmed 10/27/20] potassium chloride 20 mEq tablet,extended release(part/cryst) 20 meq PO BID tab 04/26/19 [History Confirmed 10/27/20] amoxicillin 500 mg capsule 500 mg PO BID 11/08/19 [History Confirmed 10/27/20] metolazone 2.5 mg tablet 2.5 mg PO DAILY tab 02/08/20 [History Confirmed 10/27/20] acetaminophen 325 mg capsule 325 mg PO ONCE PRN 07/15/20 [History Confirmed 10/27/20] insulin NPH isoph U-100 human 100 unit/mL subcutaneous suspension 60 unit SC BID ml 07/15/20 [History Confirmed 10/27/20] insulin regular human 100 unit/mL injection solution 50 unit SC TID ml 07/15/20 [History Confirmed 10/27/20] insulin syringe-needle U-100 0.5 mL 31 gauge x 5/16 #10 each 07/15/20 [History Confirmed 10/27/20] polysaccharide iron complex 150 mg iron capsule 150 mg PO BID cap 07/15/20 [History Confirmed 10/27/20] torsemide 20 mg tablet 40 mg PO BID tablet 07/15/20 [History Confirmed 10/27/20] atorvastatin 40 mg tablet 40 mg PO QHS tab 10/27/20 [History Confirmed 10/27/20] calcitriol 0.25 mcg capsule 0.25 mcg PO DAILY cap 10/27/20 [History Confirmed 10/27/20] escitalopram oxalate 10 mg tablet 10 mg PO DAILY 10/27/20 [History Confirmed 10/27/20] magnesium oxide 400 mg (241.3 mg magnesium) tablet 400 mg PO DAILY 10/27/20 [History Confirmed 10/27/20] [facility] Medical History (Updated 10/27/20 @ 13:[address] Rafael Chávez MD) Acute diastolic (congestive) heart failure Anemia Atherosclerosis of coronary artery of [place] heart without angina pectoris Cellulitis Cellulitis of left lower extremity without foot Chest pain Chronic kidney disease, stage III (moderate) CKD (chronic kidney disease) stage 2, GFR 60-89 ml/min Diabetes mellitus out of control Diastolic dysfunction Dyspnea Essential (primary) hypertension GERD (gastroesophageal reflux disease) History of MRSA infection History of non-ST elevation myocardial infarction (NSTEMI) (03/2014) Iron deficiency anemia Left leg cellulitis Left ventricular hypertrophy Lymphedema of left leg Morbid obesity Morbid obesity Old inferolateral myocardial infarction (2008) Old myocardial infarction Orthopnea MELODIE (obstructive sleep apnea) Prostatism Pure hypercholesterolemia Secondary pulmonary arterial hypertension Sepsis Type 2 diabetes mellitus Surgical History H/O coronary artery bypass surgery (03/2014) History of coronary artery stent placement (2008) History of incision and drainage History of left heart catheterization (03/2014) History of open reduction and internal fixation (ORIF) procedure History of tonsillectomy Family History (Updated 10/27/20 @ 12:52 by Diana Gomez) Father Hypertension Mother Brain cancer Seizures Social History (Updated 10/27/20 @ 12:53 by Diana Gomez) Smoking Status: Former smoker alcohol intake: current alcohol intake frequency: holidays/special occasions only substance use type: does not use caffeine: Yes Type: carbonated beverages Number of servings: 1 and coffee Number of servings: 1 what type of physical activity do you participate in: none frequency: does not exercise HPI HPI HPI: JAKE BRIZUELA, is a 55 M who presents to the office today for surgical consultation regarding arteriovenous fistula creation. The patient is referred by and a written copy of my surgical consult recommendations will return to him. The patient has stage V chronic renal failure.. The patient has a history of 20 years of diabetes. History of coronary artery disease with 5 vessel bypass 6 years prior. Most recent ejection fraction was 50%. He is followed by the [facility]. Current body weight is 360 pounds. On October 01, 2020 he had vein mapping performed at the [facility]. Triphasic arterial waveforms were identified. The right upper extremity cephalic vein was felt to be of adequate diameter but very deeply placed. The right upper extremity basilic vein adequate diameter and very deep placement. Left upper extremity arterial waveforms were triphasic. The left upper arm cephalic vein again was of adequate diameter but deeply placed. The left upper arm basilic vein of adequate diameter but very deeply placed. The left forearm multiple branches noted in the distal forearm and mid forearm. On the right with post thrombotic changes of the median cubital vein. On the left multiple branches noted in the distal forearm of the cephalic vein. The patient is right arm dominant. Last year he had troubles with cellulitis and sepsis. Currently he is feeling much improved. ROS General General: Yes weight change and fatigue; No appetite, colon cancer, breast cancer or weakness HEENT HEENT: No difficulty swallowing, eye injury, eye surgery, swollen glands or hoarseness Endo Endocrine: Yes diabetes mellitus; No thyroid disease, thyroid cancer, Hair loss, heat intolerance or cold intolerance Skin Skin: No rash or changing moles Musc Musculoskeletal: No back problems, arthritis, rheumatoid arthritis, gout or joint pain Cardio Cardiovascular: Yes heart disease, high blood pressure, heart attack and heart stent; No murmur, pacemaker, atrial fibrillation, palpitations, shortness of breat with exertion or chest pain Psych Psychiatric: Yes depression; No anxiety or hearing voices Resp Respiratory: Yes shortness of breath, No sleep apnea, No cough, No COPD, No asthma, No emphysema and No wheezing Gastro Gastrointestinal: No abdominal pain, No nausea or vomiting, No diarrhea, No constipation, Yes blood in stool, No acid reflux, Yes hemorrhoids, No ulcers, No gallbladder problem and No black,tarry stools [place] Hematologic: No blood thinners, No blood disorders, No bleeding, Yes anemia and No blood clots Neuro Neurologic: Yes numbness, Yes tingling and No weakness Exam Const General: cooperative, comfortable and no acute distress Nutritional Appearance: obese morbidly obese [facility] Head: normal to inspection Eyes General: appearance normal, both eyes and all related structures Resp Effort & Inspection: normal respiratory effort Auscultation: clear to auscultation bilaterally Cardio Rate: regular rate Rhythm: regular rhythm GI Other: Overweight, I am not able to determine any internal organs Musc Cervical Spine: normal cervical lordosis Skin Other: Compression hose left lower extremity, bilateral upper extremity skin intact and nontraumatized Neuro General: patient alert, patient awake and patient oriented x3 Extrem Other: Nonpitting bilateral extremity edema Psych Appearance: grossly normal COVID (Procedure Consent) Procedure Criteria Procedure Criteria: Yes Elective The surgeon/proceduralist and patient have discussed in detail the risk of exposure to and/or potential harm posed by the COVID-19 virus with having a surgery/procedure at this time versus the risk of delaying the surgery/procedure. It is not possible to know either the risk of delaying the surgery or procedure or chance of getting an infection with perfect accuracy, but a joint decision was made between the patient and the surgeon/proceduralist to proceed at this time with the scheduled surgery/procedure as indicated on the consent form. Assessment and Plan Assessment and Plan (1) Chronic kidney disease, stage III (moderate): Status: Chronic Qualifiers: Chronic kidney disease stage 3 subtype: stage 3b (GFR 30-44) Qualified Code(s): N18.32 - Chronic kidney disease, stage 3b Plan - Dr. Rafael Chávez MD: 55-year-old gentleman. He has progressive chronic renal insufficiency. He currently has stage IV to stage V chronic renal sufficiency. He is right arm dominant. He has not had COVID vaccination. He is diabetic I recommend to him a transposition left forearm cephalic vein to radial artery AV fistula creation. I have inspected his left forearm cephalic vein and is quite appropriate. I have also inspected his left radial artery. He has good arterial flow to the left hand. Ernesto test demonstrates collateral ulnar flow. I have also recommended the patient that he strongly consider Covid vaccination. We discussed benefits and risks of the vaccination and we discussed technique benefit risk complications alternatives of AV fistula creation. No guarantees of success were offered. He is on a low-dose aspirin which he will continue He has had an opportunity ask no questions answered. I very much appreciate the kind opportunity of assisting with his surgical care. Copy: Dr.Jayaprakash Gaytan and Dr. Betty Chávez M.D., F.A.C.S. I have re-examined the patient. There are no clinical changes since date of exam. Rafael Chávez M.D., F.A.C.S.
--- NOTE | 2020-11-17 06:25 | EX.PCM.DISCH ---
Discharge Instructions Procedure Fistula Diet Discharge Diet: Renal Diet Activity Discharge Activity: May Not Drive (for 2-3 days or while taking narcotic pain medications.), May Shower and May Take a Tub Bath (in 5 days.) Lifting Restrictions: 5 pounds Keep extremity elevated above heart level: - (Keep arm elevated above the heart level for 3 days.) Dressing / Incision Call your doctor if your incision/area has: Continuous Slow Oozing, Sudden Increased Bleeding (apply pressure and call your doctor.), Increased Pain/ Swelling, Increased Redness and Foul Smelling Discharge Call your doctor if you observe: Fever of 101 or Higher Suture Line Care: Avoid Pulling/Pushing and Avoid Pinching/Bending Cleanse incision/area with: Keep Dressing Clean & Dry Additional Dressing/Incision Instructions:: Change or remove dressing in one day. May protect with a gauze bandaid. Follow Up Care Please Follow Up With: Rafael Chávez MD When: Call [phone] to make an appointment for suture removal and follow up in 1 week. Test Results: Test results from this visit will be discussed in further detail at your follow-up appointment, if applicable. Discharge Plan Admission Primary Reason for Your Visit: Creation of a arteriovenous hemodialysis fistula Attending Provider: Rafael Chávez Primary Care Provider: Betty Farrell Instructions Patient Instructions: ED Chest Pain, Noncardiac Discharge Orders/Prescriptions Prescriptions: Continued potassium chloride 20 mEq tablet,ER particles/crystals 20 meq PO BID RF: 0 losartan 100 mg tablet 100 mg PO DAILY RF: 0 amlodipine 10 mg tablet 10 mg PO DAILY RF: 0 amoxicillin 500 mg capsule 500 mg PO BID RF: 0 polysaccharide iron complex 150 mg iron capsule 150 mg PO BID RF: 0 torsemide 20 mg tablet 40 mg PO BID RF: 0 insulin NPH isoph U-100 human 100 unit/mL suspension 60 unit SC BID RF: 0 (DME) insulin syringe-needle U-100 0.5 mL 31 gauge x 5/16 syringe See Rx Instructions ea .ROUTE .MEDSUPPLY Qty: 10 RF: 0 insulin regular human 100 unit/mL solution 50 unit SC TID RF: 0 acetaminophen [Tylenol] 325 mg capsule 325 mg PO ONCE PRN (Reason: Pain) RF: 0 atorvastatin 40 mg tablet 40 mg PO QHS RF: 0 calcitriol 0.25 mcg capsule 0.25 mcg PO DAILY RF: 0 escitalopram oxalate 10 mg tablet 10 mg PO DAILY RF: 0 magnesium oxide 400 mg (241.3 mg magnesium) tablet 400 mg PO DAILY RF: 0 aspirin 81 MG tablet,chewable 81 mg PO DAILY@0800 RF: 0 carvedilol 25 MG tablet 25 mg PO BID RF: 0 omeprazole 20 MG capsule 20 mg PO DAILY RF: 0 turmeric root extract 500 mg Capsule 500 mg PO DAILY RF: 0 metolazone 2.5 mg tablet 2.5 mg PO DAILY RF: 0 Referrals / Follow Up: Betty Farrell MD [Primary Care Provider] - Disposition Disposition (needs filled in before D/C Order can be placed): Home, Self Care
[2020-11-17] MEDS: 0.9% Normal Saline 1,000 ML 15 ML IV (06:43)
[2020-11-17 07:01] LABS: Bedside Glucose 137 mg/dL (70-110)
[2020-11-17] MEDS: Heparin Injection (Vial) 5,000 UNIT/ML VIAL 5000 UNIT (07:46)
[2020-11-17] MEDS: Bupivacaine Mpf 0.5% 30 ML VIAL (09:00)
[2020-11-17] MEDS: Lidocaine 1% (30 ml sdv) 30 ML Vial (09:00)
[2020-11-17] MEDS: Lidocaine 0.5% (50 ml) 50 ML Vial (09:00)
--- NOTE | 2020-11-17 09:06 | PCM.OPRPT ---
Problems Associated Problem List Diagnoses (1) Chronic kidney disease, stage III (moderate): Report of Operation Date of Procedure: 11/17/20 Pre-Operative Diagnosis: Stage III to stage IV chronic renal insufficiency Post-Operative Diagnosis: Same Surgery/Procedure Performed:: Transposition left forearm cephalic vein to radial artery arteriovenous hemodialysis fistula creation Description of Surgical Findings:: 55-year-old gentleman was taken to the operating placed upon the table underwent monitored anesthesia care. Ancef 2 g were given intravenously preoperatively. The left upper extremity sterilely prepped and draped. Ultrasound mapping of the left forearm cephalic vein had been created. 1% lidocaine mixed 50-50 with 0.5% Marcaine was used as a local anesthetic. A total of 23 cc was used. An additional 13 cc of half percent lidocaine was used throughout the procedure. Local was instilled and then a longitudinal incision was made along the radial aspect of the forearm sharp and blunt dissection was used to dissect free the cephalic vein. Side branches were secured with 4-0 Vicryl ligatures and hemoclips. Dissection was performed up to the antecubital space. The vein was then measured and a subcutaneous flap was created to get to the left radial artery circumferential control was obtained. The artery was dissected free to allow for laxity. The vein was spatulated distally at a branch point. It was secured distally with hemoclips. It was irrigated had no leaks and had good diameter. I then elected to tunnel it dorsal lateral to the incision. I instilled 1/2% lidocaine and then used a 6 mm tunneling device from the wrist to the antecubital space. The vein was then carefully placed in that tunnel with good positioning. The patient now received 10,000 units of heparin weight-based. Peripheral vascular clamps were placed on the radial artery and 11 blade was used to make an arteriotomy which was extended with Singh scissors. A end-to-side venous to arterial anastomosis was created with a running 7-0 Prolene. Prior to completion is good antegrade and retrograde flow. The anastomosis was completed was intact. There was arterial flow distally with an intact ulnar artery and distal radial artery. The hand was pink and viable. The patient received 20 mg of protamine as reversal. The subdermal tissues were approximated with interrupted 3-0 Vicryl subdermal stitches. Steri-Strips Telfa soft roll Selvin wrap applied. Sponge and instrument and needle counts were reported to the surgeon for correct. Blood loss was 200 cc. He tolerated the procedure well was taken to the recovery room in satisfactory condition without apparent complication. Specimens none. Drains none. Blood loss 200 cc. Copy: Dr. Lucila Chávez M.D., F.A.C.S. Surgeon: Rafael Chávez Type of Anesthesia: Local MAC
== END 2020-11-17 11:55 | disposition home or self-care (01) ==
LOC: SDC 05:34 → AC 05:34
PROVIDERS: PCP Internal Medicine; Referring Provider Surgery; Visit Provider Surgery
PROC: (CPT 36818; principal; 2020-11-17 07:15)
DX: E11.22 Type 2 diabetes mellitus with diabetic chronic kidney disease (principal); I12.9 Hypertensive chronic kidney disease with stage 1 through stage 4 chronic kidney disease, or unspecified chronic kidney disease; N18.4 Chronic kidney disease, stage 4 (severe); I25.10 Atherosclerotic heart disease of native coronary artery without angina pectoris; K21.9 Gastro-esophageal reflux disease without esophagitis; I25.2 Old myocardial infarction; D50.9 Iron deficiency anemia, unspecified; E66.01 Morbid (severe) obesity due to excess calories; Z68.43 Body mass index [BMI] 50.0-59.9, adult; G47.33 Obstructive sleep apnea (adult) (pediatric); E78.00 Pure hypercholesterolemia, unspecified; M10.9 Gout, unspecified; Z87.891 Personal history of nicotine dependence; I27.21 Secondary pulmonary arterial hypertension; N40.0 Benign prostatic hyperplasia without lower urinary tract symptoms; I89.0 Lymphedema, not elsewhere classified; Z86.19 Personal history of other infectious and parasitic diseases; Z86.14 Personal history of Methicillin resistant Staphylococcus aureus infection; Z79.4 Long term (current) use of insulin; Z79.82 Long term (current) use of aspirin; Z79.899 Other long term (current) drug therapy
CPT/HCPCS: 01780; 36818; 36415; 80048; 82962; 85027; 87426; 93005; J7030; J2405

== ENCOUNTER → 2020-12-24 14:17 | Outpatient (CLI) | payer OTHER, MEDICARE, SELFPAY ==
[2020-12-24 14:50] LABS: Hematocrit 32.9 % (40-54); Mean Corp Hgb Conc 30.4 g/dL (32-36); Mean Corpuscular Hgb 25.7 pg (27.0-32.0); Mean Corpuscular Volume 84.6 fL (80-94); Mean Platelet Vol. 9.9 fl (6.2-12.0); Platelet Count 241 K/mm3 (150-450); RBC Distribution Width CV 16.7 % (11.6-14.6); RBC Distribution Width SD 49.5 fl (35.1-43.9); Red Blood Count 3.89 M/mm3 (4.6-6.2)
[2020-12-24 15:20] LABS: Albumin, Serum 2.9 g/dL (3.2-5.0); BUN 76 mg/dL (7-18); BUN/Creat Ratio 20.6 RATIO (10-20); Calcium,Total 8.5 mg/dL (8.5-10.1); Chloride 105 mmol/L (98-107); Creatinine, Serum 3.69 mg/dL (0.70-1.30); EST Glomerular Filtration Rate 18 mL/min (>60); Est Glom Filt Rate - Afr Amer 22 mL/min (>60); Glucose 163 mg/dL (74-106); Phosphorus 3.9 mg/dL (2.5-4.9); Potassium 4.3 mmol/L (3.5-5.1); Sodium Level 135 mmol/L (136-145)
[2020-12-25 08:48] LABS: PTHIN 390.6 pg/mL (18.4-80.1)
== END ==
PROVIDERS: PCP Internal Medicine; Visit Provider Internal Medicine Nephrology
DX: N18.4 Chronic kidney disease, stage 4 (severe) (principal)
CPT/HCPCS: 36415; 80069; 83970; 85027

== ENCOUNTER → 2021-01-09 09:34 | Outpatient (CLI) | payer OTHER, MEDICARE, SELFPAY ==
[2021-01-09 11:04] LABS: Hepatitis B Surface Antigen Non-Reactive (Nonreactive)
== END ==
PROVIDERS: PCP Internal Medicine; Referring Provider Internal Medicine Nephrology; Visit Provider Internal Medicine Nephrology
DX: N18.5 Chronic kidney disease, stage 5 (principal)
CPT/HCPCS: 36415; 87340

== ENCOUNTER 2021-05-13 09:09 | Day surgery (SDC) | payer OTHER, MEDICARE, SELFPAY ==
[2021-05-05 13:14] LABS: Hematocrit 35.1 % (40-54); Hemoglobin 11.9 g/dL (13.0-16.5); Mean Corp Hgb Conc 33.9 g/dL (32-36); Mean Corpuscular Hgb 31.4 pg (27.0-32.0); Mean Corpuscular Volume 92.6 fL (80-94); Mean Platelet Vol. 9.3 fl (6.2-12.0); Platelet Count 211 K/mm3 (150-450); RBC Distribution Width CV 14.9 % (11.6-14.6); RBC Distribution Width SD 49.6 fl (35.1-43.9); Red Blood Count 3.79 M/mm3 (4.6-6.2); White Blood Count 6.5 K/mm3 (4.4-11.0)
[2021-05-05 13:45] LABS: Anion Gap 12 (5-15); BUN 77 mg/dL (7-18); Calcium,Total 8.3 mg/dL (8.5-10.1); Chloride 98 mmol/L (98-107); Creatinine, Serum 3.85 mg/dL (0.70-1.30); EST Glomerular Filtration Rate 17 mL/min (>60); Est Glom Filt Rate - Afr Amer 21 mL/min (>60); Glucose 319 mg/dL (74-106); Potassium 3.5 mmol/L (3.5-5.1); Sodium Level 131 mmol/L (136-145)
--- NOTE | 2021-05-13 11:07 | PCM.HP.BLA ---
History and Physical Date of Admission: 05/13/21 Intake Visit Reasons: FISTULA CHECK, ACCESS FLOW DECREASING Chief Complaint: recheck fistula Mental Health Practitioner Required: No Is patient in pain?: No Allergies pravastatin sodium [From Pravachol] Adverse Reaction (Intermediate, Verified 04/28/21 13:11) muscle aches Medications aspirin 81 mg PO DAILY@0800 16 [History Confirmed 04/28/21] carvedilol 25 mg PO BID 08/29/17 [History Confirmed 04/28/21] omeprazole 20 mg PO DAILY 08/29/17 [History Confirmed 04/28/21] amlodipine 10 mg tablet 10 mg PO DAILY 04/26/19 [History Confirmed 04/28/21] losartan 100 mg tablet 100 mg PO DAILY tab 04/26/19 [History Confirmed 04/28/21] potassium chloride 20 mEq tablet,extended release(part/cryst) 20 meq PO BID tab 04/26/19 [History Confirmed 04/28/21] metolazone 2.5 mg tablet 2.5 mg PO DAILY tab 02/08/20 [History Confirmed 04/28/21] acetaminophen 325 mg capsule 325 mg PO ONCE PRN 07/15/20 [History Confirmed 04/28/21] insulin NPH isoph U-100 human 100 unit/mL subcutaneous suspension 60 unit SC BID ml 07/15/20 [History Confirmed 04/28/21] insulin regular human 100 unit/mL injection solution 50 unit SC TID ml 07/15/20 [History Confirmed 04/28/21] insulin syringe-needle U-100 0.5 mL 31 gauge x 5/16 #10 each 07/15/20 [History Confirmed 04/28/21] polysaccharide iron complex 150 mg iron capsule 150 mg PO BID cap 07/15/20 [History Confirmed 04/28/21] torsemide 20 mg tablet 40 mg PO BID tablet 07/15/20 [History Confirmed 04/28/21] atorvastatin 40 mg tablet 40 mg PO QHS tab 10/27/20 [History Confirmed 04/28/21] calcitriol 0.25 mcg capsule 0.25 mcg PO DAILY cap 10/27/20 [History Confirmed 04/28/21] escitalopram oxalate 10 mg tablet 10 mg PO DAILY 10/27/20 [History Confirmed 04/28/21] magnesium oxide 400 mg (241.3 mg magnesium) tablet 400 mg PO DAILY 10/27/20 [History Confirmed 04/28/21] turmeric root extract 500 mg PO DAILY 11/10/20 [History Confirmed 04/28/21] hydrocodone-acetaminophen 1 tab PO Q8H PRN 2 Days #5 tab 11/17/20 [Rx Confirmed 04/28/21] [facility] Medical History (Updated 04/28/21 @ 13:43 by Megan CANO, PAYehudaC) Acute diastolic (congestive) heart failure Acute hemorrhoid Alcohol use Ambulates with cane Anemia Atherosclerosis of coronary artery of habematolel heart without angina pectoris Cellulitis Cellulitis of left lower extremity without foot Chest pain Chronic kidney disease, stage 4 (severe) Chronic kidney disease, stage III (moderate) CKD (chronic kidney disease) stage 4, GFR 15-29 ml/min Depression Diabetes mellitus out of control Diastolic dysfunction Dyspnea Easy bruising Essential (primary) hypertension Former smoker GERD (gastroesophageal reflux disease) Gout History of echocardiogram History of edema History of MRSA infection History of non-ST elevation myocardial infarction (NSTEMI) (03/2014) History of stress test Iron deficiency anemia Left leg cellulitis Left ventricular hypertrophy Leg cramps Lymphedema of left leg Morbid obesity Morbid obesity Old inferolateral myocardial infarction (2008) Old myocardial infarction Orthopnea MELODIE (obstructive sleep apnea) Problem with dialysis access Prostatism Pure hypercholesterolemia Secondary pulmonary arterial hypertension Sepsis Type 2 diabetes mellitus Surgical History H/O coronary artery bypass surgery (03/2014) History of arteriovenostomy for renal dialysis (~11/2020) History of coronary artery stent placement (2008) History of incision and drainage History of left heart catheterization (03/2014) History of open reduction and internal fixation (ORIF) procedure History of tonsillectomy Family History Father Hypertension Mother Brain cancer Seizures Social History Smoking Status: Former smoker alcohol intake: current alcohol intake frequency: holidays/special occasions only substance use type: does not use caffeine: Yes Type: carbonated beverages Number of servings: 1 and coffee Number of servings: 1 what type of physical activity do you participate in: none frequency: does not exercise HPI HPI HPI: JAKE BRIZUELA, is a 56 M who presents to the office today for decreased flow rates. Patient has a transposed left forearm cephalic vein to radial artery arteriovenous fistula, which was created on 11/17/[address] Chávez. Patient performs hemodialysis at home 4 days a week. He noted a single time of having difficulty accessing the bottom button hole at home. He had to go to the dialysis center to be evaluated and they were able to obtain access. He also noted within the last week, he had difficulty again with access. He was evaluated at the dialysis here he had a flow rate test which demonstrated the flow rates had decreased from 1130 in January to now 400 and then 310 in April. He denies any previous intervention. Patient was recommended to follow-up with our office by Dr. Gaytan. ROS General General: Yes weight change and fatigue; No appetite, colon cancer, breast cancer or weakness HEENT HEENT: No difficulty swallowing, eye injury, eye surgery, swollen glands or hoarseness Endo Endocrine: Yes diabetes mellitus; No thyroid disease, thyroid cancer, Hair loss, heat intolerance or cold intolerance Skin Skin: No rash or changing moles Musc Musculoskeletal: No back problems, arthritis, rheumatoid arthritis, gout or joint pain Cardio Cardiovascular: Yes heart disease, high blood pressure, heart attack and heart stent; No murmur, pacemaker, atrial fibrillation, palpitations, shortness of breat with exertion or chest pain Psych Psychiatric: Yes depression; No anxiety or hearing voices Resp Respiratory: Yes shortness of breath, No sleep apnea, No cough, No COPD, No asthma, No emphysema and No wheezing Gastro Gastrointestinal: No abdominal pain, No nausea or vomiting, No diarrhea, No constipation, Yes blood in stool, No acid reflux, Yes hemorrhoids, No ulcers, No gallbladder problem and No black,tarry stools [place] Hematologic: No blood thinners, No blood disorders, No bleeding, Yes anemia and No blood clots Neuro Neurologic: Yes numbness, Yes tingling and No weakness Exam Const General: cooperative, healthy appearing, comfortable and no acute distress [facility] Head: normal to inspection Eyes General: appearance normal, both eyes and all related structures Neck Neck: normal visual inspection Neck mass: No Resp Effort & Inspection: normal respiratory effort Auscultation: clear to auscultation bilaterally Cardio Rate: regular rate Rhythm: regular rhythm GI Inspection: normal to inspection, large pannus and obesity Palpation: soft Skin General: no rashes or lesions noted Neuro General: no focal motor deficits and CN's II-XI intact bilaterally Extrem Other: left forearm AV fistula- good pulse, diminished bruit and thrill near the bottom button hole. Psych Appearance: grossly normal Affect: normal affect COVID (Procedure Consent) Procedure Criteria Procedure Criteria: Yes Elective The surgeon/proceduralist and patient have discussed in detail the risk of exposure to and/or potential harm posed by the COVID-19 virus with having a surgery/procedure at this time versus the risk of delaying the surgery/procedure. It is not possible to know either the risk of delaying the surgery or procedure or chance of getting an infection with perfect accuracy, but a joint decision was made between the patient and the surgeon/proceduralist to proceed at this time with the scheduled surgery/procedure as indicated on the consent form. Assessment and Plan Assessment and Plan (1) Problem with dialysis access: Status: Acute Qualifiers: Encounter type: initial encounter Qualified Code(s): T82.898A - Other specified complication of vascular prosthetic devices, implants and grafts, initial encounter Plan - Megan CANO PA-C: Dr. Chávez will plan to perform a non-urgent left forearm fistulogram. Procedure details, risks and benefits have been explained to the patient. He is not taking his aspirin daily. He has had the opportunity to ask and have questions answered. Patient verbally understands and agrees with the plan. Coding Level of Care Code Off vis,est,level 3 Diagnoses Problem with dialysis access T82.898A Encounter type: initial encounter 04/28/21 1344<Electronically signed by Megan CANO PA-C> I have re-examined the patient. There are no clinical changes since date of exam.
--- NOTE | 2021-05-13 11:56 | OP.PCM_ITS ---
Problems Associated Problem List Diagnoses (1) Problem with dialysis access: Report of Operation Date of Procedure: 05/13/21 Pre-Operative Diagnosis: Diminished flow rate transposed left forearm cephalic vein to radial artery arteriovenous hemodialysis fistula Post-Operative Diagnosis: High-grade focal venous stenosis proximal left forearm transposed cephalic vein to radial artery arteriovenous hemodialysis fistula Surgery/Procedure Performed:: Left upper extremity fistulogram with 7 x 4 Powerflex angioplasty Description of Surgical Findings:: Timeout informed consent was obtained. 56-year-old gentleman was taken to the special procedures lab placed on the table he received 50 mcg of fentanyl 1 mg Versed is intravenous sedation. The left lower extremity sterilely prepped and draped. Ultrasound was used to identify the cephalic vein in the proximal forearm. Under ultrasound guidance 2% lidocaine was instilled. Then a micropuncture needle inserted retrograde with flow. Micropuncture wire inserted. 6 [place] short sheath was inserted. Using an angled Glidewire and a 4 [place] glide cath gain access to the radial artery proximal to the anastomosis. Using Isovue contrast a fistulogram was obtained. This demonstrated what appeared to be relatively diffuse stenosis of the proximal portion with fistula. The fistulogram was completed and there was excellent upper arm and chest outflow with no disease in that area. And so I placed a 7 x 4 Powerflex balloon and balloon angioplasty of the proximal portion of the fistula was performed and it became apparent that there was indeed one focal very tight web. Fortunately it released at 16 fred. A final fistulogram was obtained demonstrating that the proximal portion of the fistula was in a very nice smooth arcing position in the area of previous stenosis resolved. There appeared to be excellent inflow. Impression High-grade but very focal stenosis of the proximal left forearm fistula with an approximately 2 to 3 cm of the anastomosis with an otherwise widely patent anastomosis. Excellent upper arm and central venous outflow. Rafael Chávez M.D., F.A.C.S. Surgeon: Rafael Chávez Type of Anesthesia: IV Sedation and Local
== END 2021-05-13 23:59 | disposition home or self-care (01) ==
LOC: CLSP 09:11
PROVIDERS: PCP Internal Medicine; Referring Provider Surgery; Visit Provider Surgery
DX: T82.858A Stenosis of other vascular prosthetic devices, implants and grafts, initial encounter (principal); I27.21 Secondary pulmonary arterial hypertension; E11.22 Type 2 diabetes mellitus with diabetic chronic kidney disease; N18.4 Chronic kidney disease, stage 4 (severe); E66.01 Morbid (severe) obesity due to excess calories; Z79.4 Long term (current) use of insulin; I12.9 Hypertensive chronic kidney disease with stage 1 through stage 4 chronic kidney disease, or unspecified chronic kidney disease; I25.10 Atherosclerotic heart disease of native coronary artery without angina pectoris; E78.00 Pure hypercholesterolemia, unspecified; Z87.891 Personal history of nicotine dependence; Z79.82 Long term (current) use of aspirin; Z79.899 Other long term (current) drug therapy; M10.9 Gout, unspecified; G47.33 Obstructive sleep apnea (adult) (pediatric); F32.A Depression, unspecified; I25.2 Old myocardial infarction; Z95.1 Presence of aortocoronary bypass graft; Z95.5 Presence of coronary angioplasty implant and graft; Y83.8 Other surgical procedures as the cause of abnormal reaction of the patient, or of later complication, without mention of misadventure at the time of the procedure
CPT/HCPCS: 36415; 36902; 76937; 80048; 85027; 99152; 99153; J7040; Q9967; C1725; C1769